=== PATIENT | female | born 1955 | race Caucasian/White ===

== ENCOUNTER → 2017-07-26 | Outpatient (CLI) | payer OTHER | LOC: WCC 09:56 | PROVIDERS: ATTEND Family Medicine | DX: E11.621 Type 2 diabetes mellitus with foot ulcer (principal); L97.524 Non-pressure chronic ulcer of other part of left foot with necrosis of bone; L97.514 Non-pressure chronic ulcer of other part of right foot with necrosis of bone; I70.203 Unspecified atherosclerosis of native arteries of extremities, bilateral legs; I10 Essential (primary) hypertension; I48.2 Chronic atrial fibrillation; D50.8 Other iron deficiency anemias; E78.2 Mixed hyperlipidemia; I25.810 Atherosclerosis of coronary artery bypass graft(s) without angina pectoris; Z01.810 Encounter for preprocedural cardiovascular examination; Z01.811 Encounter for preprocedural respiratory examination ==

== ENCOUNTER → 2017-07-31 | Outpatient (CLI) | payer OTHER | LOC: WCC 11:03 | PROVIDERS: ATTEND Family Medicine | DX: E11.621 Type 2 diabetes mellitus with foot ulcer (principal); L97.514 Non-pressure chronic ulcer of other part of right foot with necrosis of bone; L97.524 Non-pressure chronic ulcer of other part of left foot with necrosis of bone; I70.203 Unspecified atherosclerosis of native arteries of extremities, bilateral legs; I10 Essential (primary) hypertension; D50.8 Other iron deficiency anemias; E78.2 Mixed hyperlipidemia; I48.2 Chronic atrial fibrillation; I25.810 Atherosclerosis of coronary artery bypass graft(s) without angina pectoris; Z01.810 Encounter for preprocedural cardiovascular examination; Z01.811 Encounter for preprocedural respiratory examination ==

== ENCOUNTER → 2017-08-07 | Outpatient (CLI) | payer OTHER ==
--- NOTE | 2017-08-07 11:48 | Diagnostic Imaging Report ---
PROCEDURE: Frontal and lateral views of the chest. COMPARISON: None. INDICATIONS: PULMONARY CLEARANCE FOR HYPERBARIC CHAMBER FINDINGS: Lines/tubes: None. Lungs: The lungs are well inflated and clear. There is no evidence of pneumonia or pulmonary edema. Left mid to lower lung linear atelectasis/scaring. Pleura: There is no pleural effusion or pneumothorax. Heart and mediastinum: The heart and the mediastinum are normal. Median sternotomy wires. Aorta is calcified and tortuous. Bones: No acute bony abnormality. IMPRESSION: 1. No acute cardiopulmonary disease. 2. Left mid to lower lung linear atelectasis/scaring. Dictated by: Jj Mitchell M.D. on 08/07/2017 at 11:57 Electronically approved by: Jj Mitchell M.D. on 08/07/2017 at 11:57
== END ==
LOC: RESP 09:58
PROVIDERS: ATTEND Podiatrist Foot & Ankle Surgery
DX: E11.621 Type 2 diabetes mellitus with foot ulcer (principal); Z01.810 Encounter for preprocedural cardiovascular examination; Z01.811 Encounter for preprocedural respiratory examination
CPT/HCPCS: 71020; 93005; 94010; 94727; 94729

== ENCOUNTER → 2017-08-09 | Outpatient (CLI) | payer OTHER | LOC: WCC 13:42 | PROVIDERS: ATTEND Family Medicine | DX: E11.621 Type 2 diabetes mellitus with foot ulcer (principal); L97.524 Non-pressure chronic ulcer of other part of left foot with necrosis of bone; L97.514 Non-pressure chronic ulcer of other part of right foot with necrosis of bone; I70.203 Unspecified atherosclerosis of native arteries of extremities, bilateral legs; I10 Essential (primary) hypertension; I48.2 Chronic atrial fibrillation; I25.810 Atherosclerosis of coronary artery bypass graft(s) without angina pectoris; D50.8 Other iron deficiency anemias; E78.2 Mixed hyperlipidemia; Z01.810 Encounter for preprocedural cardiovascular examination; Z01.811 Encounter for preprocedural respiratory examination | CPT/HCPCS: 36415; 82948 ==

== ENCOUNTER → 2017-08-15 | Outpatient (CLI) | payer OTHER ==
[2017-08-15 13:14] LABS: ABG HCO3 25 mmol/L (23-28); ABG PCO2 38 mmHg (41-51); ABG PH 7.42 (7.31-7.41); ABG PO2 87 mmHg (80-105)
== END ==
LOC: RESP 11:51
PROVIDERS: ATTEND Internal Medicine Pulmonary Disease
DX: Z01.811 Encounter for preprocedural respiratory examination (principal)
CPT/HCPCS: 36415; 82805

== ENCOUNTER → 2017-08-16 | Outpatient (CLI) | payer OTHER | LOC: WCC 12:42 | PROVIDERS: ATTEND Podiatrist Foot & Ankle Surgery | DX: E11.621 Type 2 diabetes mellitus with foot ulcer (principal); L97.514 Non-pressure chronic ulcer of other part of right foot with necrosis of bone; L97.524 Non-pressure chronic ulcer of other part of left foot with necrosis of bone; I70.203 Unspecified atherosclerosis of native arteries of extremities, bilateral legs; I10 Essential (primary) hypertension; D50.8 Other iron deficiency anemias; E78.2 Mixed hyperlipidemia; I25.810 Atherosclerosis of coronary artery bypass graft(s) without angina pectoris; I48.2 Chronic atrial fibrillation; Z01.810 Encounter for preprocedural cardiovascular examination; Z01.811 Encounter for preprocedural respiratory examination | CPT/HCPCS: 36415; 82948 ==

== ENCOUNTER 2017-09-01 09:51 | Inpatient (IN) | payer OTHER ==
[~2017-09-01] VITALS: Ht 167.6 cm; Wt 93.2 kg
--- OUTSIDE RECORDS SUMMARY | 2017-09-01 09:55 | XMS REPORT | Clinical Summary ---
Author Author CRISSY [facility] Address Unknown Phone Unavailable Care Team Providers Care Cra Officer Name Role Phone PCP Unavailable Allergies Active Allergy Reactions Severity Noted Date Comments Glipizide Other (See Comments) High 06/30/2017 Severe hypoglycemia Hydralazine Analogues 06/12/2017 Current Medications Prescription Sig. Disp. Refills Start End Date Status Date amLODIPine (NORVASC) 10 Take 10 mg by mouth daily Active MG tablet with dinner . atorvastatin (LIPITOR) 80 Take 80 mg by mouth Active MG tablet nightly . amiodarone (PACERONE) 100 Take 1 tablet (100 mg 60 tablet 0 06/24/20 06/24/20 Active MG tablet total) by mouth 2 (two) 17 18 times daily. apixaban (ELIQUIS) 2.5 mg Take 1 tablet (2.5 mg 60 tablet 0 06/24/20 Active Tab tablet total) by mouth 2 (two) 17 times daily. aspirin 81 MG chewable Take 1 tablet (81 mg 30 tablet 0 06/25/2005/05 Active tablet total) by mouth daily. 17 18 losartan (COZAAR) 50 MG Take 1 tablet (50 mg 30 tablet 0 06/24/20 Active tablet total) by mouth daily. 17 metoprolol (TOPROL-XL) 50 Take 1 tablet (50 mg 60 tablet 0 06/24/20 06/24/20 Active MG 24 hr tablet total) by mouth 2 (two) 17 18 times daily. ferrous sulfate 325 (65 Take 1 tablet (325 mg 180 tablet 3 20 06/30/20 Active FE) MG tablet total) by mouth 2 (two) 17 18 times daily. furosemide (LASIX) 40 MG Take 1 tablet (40 mg 180 tablet 3 06/30/20 06/30/20 Active tablet total) by mouth 2 (two) 17 18 times daily. carvedilol (COREG) 25 MG Take 25 mg by mouth 2 06/24/20 Discontin tablet (two) times daily with 17 ued breakfast and dinner. losartan (COZAAR) 50 MG Take 50 mg by mouth 06/24/20 Discontin tablet daily. 17 ued clopidogrel (PLAVIX) 75 Take 75 mg by mouth 06/24/20 Discontin mg tablet daily. 17 ued cloNIDine HCl (CATAPRES) Take 0.1 mg by mouth 2 06/24/20 Discontin 0.1 MG tablet (two) times daily. 17 ued isosorbide mononitrate Take 60 mg by mouth 2 06/24/20 Discontin (IMDUR) 60 MG 24 hr (two) times daily . 17 ued tabletIndications: at 10 am and 10 pm metFORMIN (GLUCOPHAGE) Take 500 mg by mouth 2 06/30/20 Discontin 500 MG tablet (two) times daily with 17 ued breakfast and dinner. aspirin 325 MG tablet Take 325 mg by mouth 06/24/20 Discontin daily. 17 ued LORazepam (ATIVAN) 1 MG Take 1 mg by mouth every 06/24/20 Discontin tablet 12 (twelve) hours as 17 ued needed for Anxiety. acetaminophen-codeine Take 1 tablet by mouth 30 tablet 0 06/24/20 (TYLENOL #3) 300-30 mg every 6 (six) hours as 17 17 per tablet needed for Pain for up to 10 days. Max Daily Amount: 4 tablets amLODIPine (NORVASC) 10 Take 1 tablet (10 mg 30 tablet 0 06/24/20 Discontin MG tablet total) by mouth daily 17 17 ued with dinner. atorvastatin (LIPITOR) 80 Take 1 tablet (80 mg 30 tablet 0 06/24/20 06/30/20 Discontin MG tablet total) by mouth nightly. 17 17 ued docusate sodium (COLACE) Take 1 capsule (100 mg 10 capsule 0 06/24/20 07/04/20 100 MG capsule total) by mouth 2 (two) 17 17 times daily as needed for Constipation for up to 10 days. glipiZIDE (GLUCOTROL) 5 Take 1 tablet (5 mg 60 tablet 0 06/24/20 Discontin MG tablet total) by mouth 2 (two) 17 17 ued times daily before meals. lidocaine (LIDODERM) 5 % Place 2 patches onto the 30 patch 0 06/24/20 07/24/19 patch skin daily for 30 days 17 18 Remove & Discard patch within 12 hours or as directed by MD. lidocaine (XYLOCAINE) 5 % Apply topically as needed 120 g 1 06/24/20 06/30/20 Discontin ointment (on feet). 17 17 ued magnesium oxide (MAG-OX) Take 1 tablet (400 mg 30 tablet 0 06/25/20 06/30/20 Discontin 400 mg tablet total) by mouth daily. 17 17 ued metFORMIN (GLUCOPHAGE) Take 1 tablet (500 mg 60 tablet 0 06/24/20 Discontin 500 MG tablet total) by mouth 2 (two) 17 17 ued times daily with breakfast and dinner. metoprolol (TOPROL-XL) 50 Take 1 tablet (50 mg 60 tablet 0 06/24/20 06/24/20 Discontin MG 24 hr tablet total) by mouth 2 (two) 17 17 ued times daily. QUEtiapine (SEROQUEL) 25 Take 0.5 tablets (12.5 mg 30 tablet 0 06/24/20 Discontin MG tablet total) by mouth nightly 17 17 ued for 30 days. metFORMIN (GLUCOPHAGE) Take 1 tablet (500 mg 60 tablet 0 06/24/20 Discontin 500 MG tablet total) by mouth 2 (two) 17 17 ued times daily with breakfast and dinner. QUEtiapine (SEROQUEL) 25 Take 0.5 tablets (12.5 mg 30 tablet 0 07/24/19 MG tablet total) by mouth nightly 17 18 for 30 days. oseltamivir (TAMIFLU) 75 Take 1 capsule (75 mg 8 capsule 0 06/30/20 07/04/20 MG capsule total) by mouth 2 (two) 17 17 times daily for 4 days. levoFLOXacin (LEVAQUIN) Take 1 tablet (500 mg 2 tablet 0 06/30/20 500 MG tablet total) by mouth daily for 17 17 2 days. Active Problems Problem Noted Date Fever, unspecified fever cause 06/28/2017 SOB (shortness of breath) 06/28/2017 Cough 06/28/2017 Influenza B 06/28/2017 Acute postoperative pain 06/20/2017 Paroxysmal a-fib ([facility]) 06/20/2017 ACB x 3 (Dr. Castillo) - 12.1.17 06/16/2017 MILA (acute kidney injury) ([facility]) 06/16/2017 NSTEMI (non-ST elevated myocardial infarction) ([facility]) 06/16/2017 Acute pulmonary insufficiency following thoracic surgery ([facility]) 06/16/2017 Acute pulmonary edema ([facility]) 06/16/2017 ST elevation myocardial infarction involving left circumflex coronary 2016 artery ([facility]) Chest pain, unspecified type 06/12/2017 Encounters Date Type Specialty Care Team Description 06/28/2017 Emergency Cardiology James Yoon MD Fever, unspecified fever - Philip Quinonez MD cause (Primary Dx);SOB 06/30/2017 Jim Auguste (shortness of breath);S/P MD Shay coronary artery bypass graft x 3;Anemia, unspecified type;Elevated troponin;MILA (acute kidney injury) ([facility]);Cough;Influenza B;Paroxysmal a-fib ([facility]);Type 2 diabetes mellitus with hypoglycemia without coma, without long-term current use of insulin ([facility]) 06/16/2017 Procedure Pass 06/16/2017 Surgery Damien Castillo, BYPASS,AORTO CORONARY ANGELA 06/15/2017 Anesthesia Raj Barrera MD Event 06/15/2017 Procedure Pass 06/15/2017 Surgery Julio C Miller MD L CATH & CORONARY ANGIOS 06/12/2017 Hospital Cardiology James Yoon MD Chest pain, unspecified - Encounter Dimitris Horne MD type (Primary Dx);Acute 06/24/2017 Cleo Nuñez, kidney injury ([facility]);HTN (hypertension)Pippa Yashash-D benign;Mixed hyperlipidemia;Uncontroll ed type 2 diabetes mellitus with complication, with long-term current use of insulin ([facility]);Hypomagnesemia;SOB (shortness of breath);Coronary artery disease of [place] heart with stable angina pectoris, unspecified vessel or lesion type ([facility]);Unstable angina (HCC);MILA (acute kidney injury) (HCC) 06/12/2017 Orders Only General Internal Medicine after 08/31/2016 Social History Tobacco Use Types Packs/Day Years Used Date Never Smoker Smokeless Tobacco: Never Used Sex Assigned at Date Recorded Not on file Last Filed Vital Signs Vital Sign Reading Time Taken Blood Pressure 146/76 06/30/2017 12:00 PM [employer]IC[employer]URAL CHEMICALS INSPECTOR Pulse 65 06/30/2017 12:00 PM [employer]URAL CHEMICALS INSPECTOR Temperature 36.8 C (98.2 F) 06/30/2017 12:00 PM AGRICULTURAL CHEMICALS INSPECTOR Respiratory Rate 20 06/30/2017 12:00 PM AGRICULTURAL CHEMICALS INSPECTOR Oxygen Saturation 94% 06/30/2017 12:00 PM A[employer]IC[employer]URAL CHEMICALS INSPECTOR Inhaled Oxygen - - Concentration Weight 87.6 kg (193 lb 3.2 oz) 06/30/2017 5:42 AM AGRICULTURAL CHEMICALS INSPECTOR Height 168 cm (5' 6.14") 06/27/2017 11:09 PM AGRICULTURAL CHEMICALS INSPECTOR Body Mass Index 31.05 06/30/2017 5:42 AM A[employer]ICULTURAL CHEMICALS INSPECTOR Plan of Treatment Not on file Implants Implanted Type Area Metal Expediter Device Expiration Model / Identifier Date Serial / Lot Sternal Zipfix Ndl Strl Cardiovasc N/A: Chest SYNTHES:SYNTHES 2021 08.501.001 [id number] - [id number] [facility] .20S / Implanted: Qty: 1 on 06/16/2017 by / Damien Castillo MD [id number] Procedures Procedure Name Priority Date/Time Associated Diagnosis Comments ENDOSCOPIC HARVEST,VEIN 06/16/2017 CORONARY ARTERY DISEASE 7:30 AM AGRICULTURAL CHEMICALS INSPECTOR Case Notes [place] CORONARY BYPASS BYPASS,[place]TO CORONARY ANGELA 06/16/2017 CORONARY ARTERY DISEASE 7:30 AM AGRIC[employer]URAL CHEMICALS INSPECTOR Case Notes [place] CORONARY BYPASS L CATH & CORONARY ANGIOS 06/15/2017 cad 6:50 PM AGRICULTURAL CHEMICALS INSPECTOR after 08/31/2016 Results * ECHOCARDIOGRAM REPORT - SCAN (07/03/2017 1:51 PM) Only the most recent of 4 results within the time period is included. * RHYTHM STRIP - SCAN (07/03/2017 11:30 AM) Only the most recent of 3 results within the time period is included. * POC-Glucose meter (06/30/2017 11:48 AM) Only the most recent of 65 results within the time period is included. Component Value Ref Range POC-Glucose Meter 169 (H)Comment: TESTED AT [address] 70 - 110 mg /dL [facility] [id number] Specimen Performing Laboratory Blood [address] [address] * Calcium, Ionized (06/30/2017 5:58 AM) Only the most recent of 19 results within the time period is included. Component Value Ref Range Calcium, Ion 1.05 (L) 1.12 - 1.27 mmol/L pH, Blood 7.39 Specimen Performing Laboratory Blood [address] [address] * CBC with platelet count + automated diff (06/30/2017 5:58 AM) Only the most recent of 16 results within the time period is included. Component Value Ref Range WBC 6.5 3.5 - 10.5 K/ L RBC 2.88 (L) 3.93 - 5.22 M/ L Hemoglobin 8.0 (L) 11.2 - 15.7 GM/DL Hematocrit 26.1 (L) 34.1 - 44.9 % MCV 90.6 79.4 - 94.8 fL MCH 27.8 25.6 - 32.2 pg MCHC 30.7 (L) 32.2 - 35.5 GM/DL RDW 15.4 (H) 11.7 - 14.4 % Platelets 294 150 - 450 K/CU MM MPV 10.2 9.4 - 12.3 fL nRBC 0 0 - 0 /100 WBC % Neutros 71 % % Lymphs 17 % % Monos 9 % % Eos 2 % % Baso 1 % # Neutros 4.63 1.56 - 6.13 K/ L # Lymphs 1.12 (L) 1.18 - 3.74 K/ L # Monos 0.57 (H) 0.24 - 0.36 K/ L # Eos 0.15 0.04 - 0.36 K/ L # Baso 0.04 0.01 - 0.08 K/ L Immature 1 0 - 1 % Granulocytes-Relative Specimen Performing Laboratory Blood [address] [address] * CBC with platelet count + automated diff (06/30/2017 5:58 AM) Only the most recent of 16 results within the time period is included. Specimen Performing Laboratory Blood Narrative The following orders were created for panel order CBC with platelet count + automated diff. Procedure Abnormality Status --------- - ------ CBC with platelet count ...[[id number]]AbnormalFinal result Please view results for these tests on the individual orders. * Phosphorus (06/30/2017 5:58 AM) Only the most recent of 11 results within the time period is included. Component Value Ref Range Phosphorus 3.1 2.3 - 4.7 mg/dL Specimen Performing Laboratory Blood [address] [address] * Magnesium (06/30/2017 5:58 AM) Only the most recent of 23 results within the time period is included. Component Value Ref Range Magnesium 1.7 1.6 - 2.6 mg/dL Specimen Performing Laboratory Blood [address] [address] * Basic metabolic panel (06/30/2017 5:58 AM) Only the most recent of 19 results within the time period is included. Component Value Ref Range Sodium 137 136 - 145 meq/L Potassium 4.1 3.5 - 5.1 meq/L Chloride 100 98 - 107 meq/L CO2 28 22 - 29 meq/L BUN 27 (H) 7 - 21 mg/dL Creatinine 2.27 (H) 0.57 - 1.25 mg/dL Glucose 97 70 - 105 mg/dL Calcium 8.2 (L) 8.4 - 10.2 mg/dL EGFR 22Comment: ESTIMATED GFR IS NOT ACCURATE mL/min/1.73 sq m CREATININE CLEARANCE IN PREDICTING GLOMERULAR FILTRATION RATE. ESTIMATED GFR IS NOT APPLICABLE FOR DIALYSIS PATIENTS. Specimen Performing Laboratory Blood [address] [address] * Iron, TIBC, % sat. (without ferritin) (06/29/2017 1:39 AM) Only the most recent of 2 results within the time period is included. Component Value Ref Range Iron 16 (L) 40 - 160 ug/dL TIBC 248 (L) 250 - 450 ug/dL Iron % Saturation 6 (L) 20 - 55 % Specimen Performing Laboratory Blood [address] [address] * Ferritin (06/29/2017 1:39 AM) Only the most recent of 2 results within the time period is included. Component Value Ref Range Ferritin 540 (H) 5 - 275 ng/mL Specimen Performing Laboratory Blood [address] [address] * Troponin I (06/29/2017 1:33 AM) Only the most recent of 11 results within the time period is included. Component Value Ref Range Troponin I 0.08 (H) 0.00 - 0.03 ng/mL [place]imen [place] [address] Narrative Troponin I (TnI) levels must be interpreted in the context of the presenting symptoms and the clinical findings. Elevated TnI levels indicate myocardial damage, but are not specific for ischemic heart disease. Elevated TnI levels are seen in patients with other cardiac conditions (including myocarditis and congestive heart failure), and slight TnI elevations occur in patients with other conditions, including sepsis, renal failure, acidosis, acute neurological disease, and persistent tachyarrhythmia. * Reticulocyte count (06/29/2017 1:33 AM) Only the most recent of 2 results within the time period is included. Component Value Ref Range % Retic 3.5 (H) 0.5 - 1.7 % Specimen Performing Laboratory [address] [address] * B-type Natriuretic Factor (BNP) (06/29/2017 1:33 AM) Only the most recent of 4 results within the time period is included. Component Value Ref Range BNP 1230 (H) 0 - 100 pg/mL [place]imen [place] [address] * NM lung scan (V/Q) (06/28/2017 4:38 PM) Specimen Performing Laboratory [employer] Narrative FINAL REPORT PROCEDURE: V/Q LUNG SCAN CPT CODE: 66327 INDICATION: Dyspnea PROTOCOL: 10.8 mCi ofXe-133 gas was administered by inhalation. Single breath and rebreathing/washout images were obtained in the anterior and the posterior projections.4.3 mCi of Tc-99m MAA was then injected intravenously, and static perfusion images were obtained in multiple projections. FINDINGS: Ventilation: Initial tracer distribution is irregularly decreased in the left mid lung field anteriorly and the right mid and lower lung chaudhari posteriorly. Washout proceeds normally. Perfusion:Tracer distribution is nonsegmentally decreased in the mid and lower lung chaudhari bilaterally. IMPRESSION: 1. Very low probability of acute pulmonary embolization. 2. Bilateral parenchymal abnormality. Signed: Tiffany Dye MD Report Verified Date/Time:06/28/2017 17:18:07 Reading Location: [address] Reading Room Procedure Note Interface, External Ris In - 06/28/2017 5:20 PM AGRICULTURAL CHEMICALS INSPECTOR FINAL REPORT PROCEDURE: V/Q LUNG SCAN CPT CODE: [id number] INDICATION: Dyspnea PROTOCOL: 10.8 mCi of Xe-133 gas was administered by inhalation. Single breath and rebreathing/washout images were obtained in the anterior and the posterior projections. 4.3 mCi of Tc-99m MAA was then injected intravenously, and static perfusion images were obtained in multiple projections. FINDINGS: Ventilation: Initial tracer distribution is irregularly decreased in the left mid lung field anteriorly and the right mid and lower lung chaudhari posteriorly. Washout proceeds normally. Perfusion: Tracer distribution is nonsegmentally decreased in the mid and lower lung chaudhari bilaterally. IMPRESSION: 1. Very low probability of acute pulmonary embolization. 2. Bilateral parenchymal abnormality. Signed: Tiffany Dye MD Report Verified Date/Time: 06/28/2017 17:18:07 Reading Location: [address] Reading Room * ECG 12 lead (06/28/2017 12:15 PM) Only the most recent of 6 results within the time period is included. Specimen Performing Laboratory [employer] [facility] Narrative Ventricular Rate 69 BPM Atrial Rate 69 BPM P-R Interval 176 ms QRS Duration 100 ms Q-T Interval 452 ms QTC Calculation(Bazett) 484 ms P Raymond 34 degrees R Raymond 5 degrees T Raymond 7 degrees Normal sinus rhythm Nonspecific T wave abnormality Prolonged QT Abnormal ECG When compared with ECG of 28-JUN-2017 12:15, No significant change was found Confirmed by MD ORELLANA JORGE ([id number]) on 06/28/2017 3:14:19 PM Procedure Note Interface, External Ris In - 06/28/2017 3:14 PM A[employer] CHEMICALS INSPECTOR Ventricular Rate 69 BPM Atrial Rate 69 BPM P-R Interval 176 ms QRS Duration 100 ms Q-T Interval 452 ms QTC Calculation(Bazett) 484 ms P Raymond 34 degrees R Raymond 5 degrees T Raymond 7 degrees Normal sinus rhythm Nonspecific T wave abnormality Prolonged QT Abnormal ECG When compared with ECG of 28-JUN-2017 12:15, No significant change was found Confirmed by MD ORELLANA JORGE ([id number]) on 06/28/2017 3:14:19 PM * 2D Echo W/Doppler(CW/PW/Color) (06/28/2017 11:40 AM) Only the most recent of 4 results within the time period is included. Component Value Ref Range Ejection Fraction Specimen Performing Laboratory [facility] CP[facility] Narrative Transthoracic Echocardiography Report (TTE) Demographics Patient NameBRUTMARIE PASTOR Date of Study06/28 ADRIANA Gender Female Visit [id number] Race Unknown Number [id number] Number Date of 1955 Referring Physician Age 62 year(s) Explosive Operator Fuse Donaldo Espino Studio Technician Video Operator Danni ContrerasInterpreting Zayda Contreras MD Physician Procedure Type of Study TTE procedure:2DECHO W DOPPLER(CW/PW/COLOR) ([place]) Indications:Shortness of breath. Clinical History HGB 7.9 HCT 25.3 % CAD DM HLD HTN AR BYPASS AORTO CORONARY Height: 66 inches Weight: 87.09 kg (192 lbs) BSA: 1.97 m^2 BMI: 30.99 kg/m^2 HR: 69 bpm BP: 139/53 mmHg Summary The LV endocardium is well visualized. The left ventricle is chamber size (by vol index) is mildly enlarged (female - LVED 62-70ml/m2). Mild concentric LV hypertrophy. The following segment(s) appear mildly hypokinetic: base mid inferior . Septal motion is abnormal, likely related to prior cardiac surgery . All of the LV segments contract normally . Global LV systolic function normal . LVEF by Miller's method of disk assessment is normal (~60%) . Grade 2 diastolic dysfunction (moderately increased LA pressure). A trivial pericardial effusion is present . A small loculated posterior pericardial effusion is suspected . Compared to prior echo the base-mid inferior segments are better visualized now with contrast Signature Findings Technical Quality: Technically adequate exam. Rhythm/BPAtrial flutter with controlled ventricular response Left Ventricle The LV endocardium is well visualized. The left ventricle is chamber size (by vol index) is mildly enlarged (female - LVED 62-70ml/m2). Mild concentric LV hypertrophy. The following segment(s) appear mildly hypokinetic: base mid inferior . Septal motion is abnormal, likely related to prior cardiac surgery . All of the LV segments contract normally . Global LV systolic function normal . LVEF by Miller's method of disk assessment is normal (~60%) . Grade 2 diastolic dysfunction ( moderately increased LA pressure). Left AtriumLA size is severely enlarged (>48 ml/m2) . Right VentricleThe right ventricular chamber size and systolic function are within normal limits. Right Atrium RA size is normal. Atrial SeptumNormal interatrial septum by available views. Aortic Valve Mild AoV cusp thickening. Mild AoV cusp calcification. Mitral Valve Mild MV leaflet thickening. Mild mitral annular calcification. Mild mitral stenosis. Mild mitral regurgitation. Tricuspid ValveUnable to estimate peak systolic PA pressure; inadequate TR velocity signal. Pulmonic Valve Normal PV structure and function. AortaAortic root size (SInus of Valsalva diameter) is normal . PericardiumA trivial pericardial effusion is present . A small loculated posterior pericardial effusion is suspected . IVC/SVC/PA/PV/PleuralThe estimated RA pressure by IVC dynamics 11-15mmHg . Chambers/Structures Left Atrium LA Volume: 119.61 mlLA Area: 29.43 cm^2 LA Vol. Index: 61 ml/m^2 Left Ventricle LVIDd: 4.64 cm LVIDs: 3.17 cm LV Septum Diastolic: 1.28 cm LV PW Diastolic: 1.29 cm LV FS: 31.7 % LVEDV Miller's:118.16 mlLV IVRT: 87.7 msec LVESV Miller's:42.05 ml LVEDVI: 60 ml/m^2 LVEF Miller's: 64 % LVESVI: 21 ml/ m^2 LVOT Diameter: 2.11 cm Right Atrium RA Vol. (Sngl Plane): 52.26 ml Right Ventricle TAPSE: 1.78 cm Aorta Ao Root S of Iris.: 3.38 cmAscending Aorta: 3.38 cm Doppler/Quantitative Measurements Mitral Valve MV Peak E-Wave: 1.28 m/sMV Peak A-Wave: 0.96 m/s E/ A Ratio: 1.34 Mean Velocity: 1.02 m/s Peak Gradient: 6.55 mmHg Mean Gradient: 4.71 mmHgDeceleration Time: 253.4 msec Area (continuity): 1.65 cm^2 MV VTI: 52.21 cm MV Ho. Peak: 1.54 m/s Tissue Doppler E' Lateral Velocity: 0.07 m/s E/E': 19.52 LVOT Peak Velocity: 1.06 m/s Peak Gradient: 4.49 mmHg Mean Velocity: 0.74 m/s Mean Gradient: 2.53 mmHg LVOT Diameter: 2.11 cmLVOT VTI: 24.6 cm LVOT Area: 3.5 cm^2 LVOT SV:85.97 ml LVOT CO: 5.93 l/min LVOT CI: 3.01 l/min/m^2 Procedure Note Interface, External Ris In - 06/28/2017 3:38 PM AGRICULTURAL CHEMICALS INSPECTOR Transthoracic Echocardiography Report (TTE) Demographics Patient Name MARIE ROGERS Date of Study 06/28/2017 ADRIANA Gender Female Visit Number [id number] Race Unknown Room Number [id number] Number Date of 1955 Referring Physician Age 62 year(s) Explosive Operator Fuse Donaldo Espino Studio Technician Video Operator Danni Gallegos Interpreting Zayda Contreras MD Physician Procedure Type of Study TTE procedure:2DECHO W DOPPLER(CW/PW/COLOR) ([place]) Indications:Shortness of breath. Clinical History HGB 7.9 HCT 25.3 % CAD DM HLD HTN AR BYPASS AORTO CORONARY Height: 66 inches Weight: 87.09 kg (192 lbs) BSA: 1.97 m^2 BMI: 30.99 kg/m^2 HR: 69 bpm BP: 139/53 mmHg Summary The LV endocardium is well visualized. The left ventricle is chamber size (by vol index) is mildly enlarged (female - LVED 62-70ml/m2). Mild concentric LV hypertrophy. The following segment(s) appear mildly hypokinetic: base mid inferior . Septal motion is abnormal, likely related to prior cardiac surgery . All of the LV segments contract normally . Global LV systolic function normal . LVEF by Miller's method of disk assessment is normal (~60%) . Grade 2 diastolic dysfunction (moderately increased LA pressure). A trivial pericardial effusion is present . A small loculated posterior pericardial effusion is suspected . Compared to prior echo the base-mid inferior segments are better visualized now with contrast Signature Findings Technical Quality: Technically adequate exam. Rhythm/BP Atrial flutter with controlled ventricular response Left Ventricle The LV endocardium is well visualized. The left ventricle is chamber size (by vol index) is mildly enlarged (female - LVED 62-70ml/m2). Mild concentric LV hypertrophy. The following segment(s) appear mildly hypokinetic: base mid inferior . Septal motion is abnormal, likely related to prior cardiac surgery . All of the LV segments contract normally . Global LV systolic function normal . LVEF by Miller's method of disk assessment is normal (~60%) . Grade 2 diastolic dysfunction (moderately increased LA pressure). Left Atrium LA size is severely enlarged (>48 ml/m2) . Right Ventricle The right ventricular chamber size and systolic function are within normal limits. Right Atrium RA size is normal. Atrial Septum Normal interatrial septum by available views. Aortic Valve Mild AoV cusp thickening. Mild AoV cusp calcification. Mitral Valve Mild MV leaflet thickening. Mild mitral annular calcification. Mild mitral stenosis. Mild mitral regurgitation. Tricuspid Valve Unable to estimate peak systolic PA pressure; inadequate TR velocity signal. Pulmonic Valve Normal PV structure and function. Aorta Aortic root size (SInus of Valsalva diameter) is normal . Pericardium A trivial pericardial effusion is present . A small loculated posterior pericardial effusion is suspected . IVC/SVC/PA/PV/Pleural The estimated RA pressure by IVC dynamics 11-15mmHg . Chambers/Structures Left Atrium LA Volume: 119.61 ml LA Area: 29.43 cm^2 LA Vol. Index: 61 ml/m^2 Left Ventricle LVIDd: 4.64 cm LVIDs: 3.17 cm LV Septum Diastolic: 1.28 cm LV PW Diastolic: 1.29 cm LV FS: 31.7 % LVEDV Miller's:118.16 ml LV IVRT: 87.7 msec LVESV Miller's:42.05 ml LVEDVI: 60 ml/m^2 LVEF Miller's: 64 % LVESVI: 21 ml/m^2 LVOT Diameter: 2.11 cm Right Atrium RA Vol. (Sngl Plane): 52.26 ml Right Ventricle TAPSE: 1.78 cm Aorta Ao Root S of Iris.: 3.38 cm Ascending Aorta: 3.38 cm Doppler/Quantitative Measurements Mitral Valve MV Peak E-Wave: 1.28 m/s MV Peak A-Wave: 0.96 m/s E/A Ratio: 1.34 Mean Velocity: 1.02 m/s Peak Gradient: 6.55 mmHg Mean Gradient: 4.71 mmHg Deceleration Time: 253.4 msec Area (continuity): 1.65 cm^2 MV VTI: 52.21 cm MV Ho. Peak: 1.54 m/s Tissue Doppler E' Lateral Velocity: 0.07 m/s E/E': 19.52 LVOT Peak Velocity: 1.06 m/s Peak Gradient: 4.49 mmHg Mean Velocity: 0.74 m/s Mean Gradient: 2.53 mmHg LVOT Diameter: 2.11 cm LVOT VTI: 24.6 cm LVOT Area: 3.5 cm^2 LVOT SV:85.97 ml LVOT CO: 5.93 l/min LVOT CI: 3.01 l/min/m^2 * Sputum Culture + Gram Stain (06/28/2017 11:25 AM) Component Value Ref Range Result 1+ Normal respiratory jennifer present Gram Stain Result 3+ WBCs Gram Stain Result 0-5 epithelial cells Gram Stain Result <1+ gram positive rods Gram Stain Result <1+ gram positive cocci in pairs Specimen Performing Laboratory Sputum - Expectorated [facility] [address] [place] [address] * PERIPHERAL VASCULAR REPORT - SCAN (06/28/2017 11:20 AM) Only the most recent of 4 results within the time period is included. * Respiratory Panel [facility] (06/28/2017 11:05 AM) Component Value Ref Range Human Metapneumovirus Not detected Not detected, Inconclusive Rhinovirus Not detected Not detected, Inconclusive Influenza A Not detected Not detected, Inconclusive Influenza A subtype H1 Not detected Not detected, Inconclusive Influenza A Subtype H3 Not detected Not detected, Inconclusive Influenza A Subtype Not detected Not detected, H1-2009 Inconclusive Influenza B Detected (A) Not detected, Inconclusive Respiratory Syncytial Not detected Not detected, Virus Inconclusive Parainfluenza Virus 1 Not detected Not detected, Inconclusive Parainfluenza Virus 2 Not detected Not detected, Inconclusive Parainfluenza virus 3 Not detected Not detected, Inconclusive Parainfluenza Virus 4 Not detected Not detected, Inconclusive Adenovirus Not detected Not detected, Inconclusive Coronavirus 229E Not detected Not detected, Inconclusive Coronavirus HKU1 Not detected Not detected, Inconclusive Coronavirus NL63 Not detected Not detected, Inconclusive Coronavirus OC43 Not detected Not detected, Inconclusive Bordetella Pertussis Not detected Not detected, Inconclusive Chlamydophila Pneumoniae Not detected Not detected, Inconclusive Mycoplasma Pneumoniae Not detected Not detected, Inconclusive Specimen Performing Laboratory Nasopharyngeal - [facility] Nasopharyngeal Swab [address] [place] [address] * Venous doppler legs bilateral (06/28/2017 10:14 AM) Component Value Ref Range Ejection Fraction Specimen Performing Laboratory SLE ECHO HEARTLAB MKCKESSON CPACS Impressions Right Impression 1. There is no deep venous obstruction in the common femoral, profunda femoral, femoral, popliteal, posterior tibial or peroneal veins. 2. There is no superficial venous obstruction in the great saphenous vein. Left Impression 1. There is no deep venous obstruction in the common femoral, profunda femoral, femoral, popliteal, posterior tibial or peroneal veins. 2. There is no superficial venous obstruction in the great saphenous vein. Conclusions Summary Venous duplex imaging and compression of the bilateral lower extremities were performed. The veins were adequately visualized. The bilateral venous systems were patent and compressible with no evidence of thrombus. The venous Doppler waveforms were pulsatile indicating possible elevated right heart filling pressure . Signature Velocities are measured in cm/s ; Diameters are measured in cm Narrative PV LAB - Lower Extremities DVT Study Demographics Patient MARIE Allen Date of Study 06/28/2017 62 Visit [id number] Female of 04/1955 Number Referring PHILIP Oliva Number [id number] Physician Explosive Operator Fuse Clifford Mendoza. InterpretingJ. Barrington Blakely RVT, Asaf PÉREZ, SHERRIE Procedure Type of Study: Veins: Lower Extremities DVT Study, VENOUS DOPPLER LEG, BILATERAL. Indications for Study:Swelling. Patient Status:Routine. Study Location:Vascular Lab. Technical Quality:Adequate visualization. Risk Factors History of Disease + +----+ + !Diagnosis !Date!Comments ! + +----+ + !Other !!left broken 5th digit.! + +----+ + !History/Risk Factors: !!DM, HDL, HT, AR, CAD ! + +----+ + Procedure Note Interface, External Ris In - 06/28/2017 10:55 AM AGRICULTURAL CHEMICALS INSPECTOR PV LAB - Lower Extremities DVT Study Demographics Patient Name MARIE ROGERS Date of Study 06/28/2017 Age 62 Visit Number [id number] Gender Female Date of 1955 [facility] Room Number 1123 Physician Explosive Operator Fuse Clifford Mendoza. Interpreting Lazaro Blakely RVT, ARDMS Physician , RPVI Procedure Type of Study: Veins: Lower Extremities DVT Study, VENOUS DOPPLER LEG, BILATERAL. Indications for Study:Swelling. Patient Status:Routine. Study Location:Vascular Lab. Technical Quality:Adequate visualization. Risk Factors History of Disease + +----+ + !Diagnosis !Date!Comments ! + +----+ + !Other ! !left broken 5th digit. ! + +----+ + !History/Risk Factors: ! !DM, HDL, HT, AR, CAD ! + +----+ + Impressions Right Impression 1. There is no deep venous obstruction in the common femoral, profunda femoral, femoral, popliteal, posterior tibial or peroneal veins. 2. There is no superficial venous obstruction in the great saphenous vein. Left Impression 1. There is no deep venous obstruction in the common femoral, profunda femoral, femoral, popliteal, posterior tibial or peroneal veins. 2. There is no superficial venous obstruction in the great saphenous vein. Conclusions Summary Venous duplex imaging and compression of the bilateral lower extremities were performed. The veins were adequately visualized. The bilateral venous systems were patent and compressible with no evidence of thrombus. The venous Doppler waveforms were pulsatile indicating possible elevated right heart filling pressure . Signature Velocities are measured in cm/s ; Diameters are measured in cm * ED ECG Interpretation (06/28/2017 6:12 AM) Only the most recent of 2 results within the time period is included. Narrative James Yoon MD 06/28/20176:12 AM ECG/EKG Interpretation Date/Time: 06/28/2017 4:43 AM Performed by: JAMES YOON. Authorized by: JAMES YOON The ECG was interpreted by ED physician. The ECG is interpreted as sinus rhythm. Heart rate is 70 BPM. Patient tolerance: Patient tolerated the procedure well with no immediate complications Comments: SINUS RHYTHM ON MONTIOR * Urinalysis w/Microscopic (06/28/2017 4:32 AM) Only the most recent of 2 results within the time period is included. Component Value Ref Range Color, UA Yellow Clarity, UA Clear Specific [place], UA 1.009 1.001 - 1.035 pH, UA 5.5 5.0 - 8.0 Protein, UA 30 mg/dL (A) Negative Glucose, UA Negative Negative Ketones, UA Negative Negative Bilirubin, UA Negative Negative Blood, UA Trace (A) Negative Nitrite, UA Negative Negative Leukocytes, UA Negative Negative Urobilinogen, UA 0.2 0.2 - 1.0 mg/dL RBC, UA <1 /HPF WBC, UA 1 /HPF Bacteria, UA Occasional Squam Epithel, UA 4 /HPF Yeast Occasional Specimen Source Urine, Clean Catch Specimen Performing Laboratory Urine - Urine, [facility] Catch [address] [place] [address] * Urine culture (06/28/2017 4:32 AM) Only the most recent of 2 results within the time period is included. Component Value Ref Range Result Result 10-19,000 col/mL Luz Maria glabrata (A) Specimen Performing Laboratory Urine - Urine, [facility] Catch [address] [place] [address] Narrative 30-39,000 col/mL skin jennifer * Influenza A H1N1 PCR (06/28/2017 3:14 AM) Component Value Ref Range Influenza A RNA Not Detected Not Detected, Inconclusive Novel H1N1 RNA Not Detected Not Detected, Inconclusive Specimen Performing Laboratory Nasopharyngeal - [facility] Nasopharyngeal Swab [address] [place] [address] Narrative These assays were performed by real-time RT-PCR (historical guide-PCR) utilizing fluorogenic hydrolysis probe technology for the detection of human Influenza A viruses and the differential detection of novel H1N1 Influenza virus in respiratory specimens. The test is composed of (1) an RNA extraction from patient specimen, and (2) historical guide-PCR amplification and detection with human Influenza A and novel [id number] primers and probes. A well-conserved region of the Influenza A matrix gene is targeted in one set of reactions to identify both seasonal Influenza A and novel H1N1 Influenza virus in the specimen.In addition, a specific region of the hemagglutinin gene is targeted to differentiate the novel H1N1 virus from the seasonal human influenza. An internal control is used to confirm PCR amplification.Genetic variation and other factors can affect the accuracy of nucleic acid testing; therefore, the results should be interpreted in light of clinical data. This test was developed and its performance characteristics determined by the [facility] Pathology Department, Section of Molecular Pathology.It has not been cleared or approved by the U.S. Food and Drug Administration (FDA).Since FDA approval is not required for clinical use of the test, validation was done as required by The Clinical Laboratory Amendments of 1988. These assays were performed by real-time RT-PCR (historical guide-PCR) utilizing fluorogenic hydrolysis probe technology for the detection of human Influenza A viruses and the differential detection of novel H1N1 Influenza virus in respiratory specimens. The test is composed of (1) an RNA extraction from patient specimen, and (2) historical guide-PCR amplification and detection with human Influenza A and novel [id number] primers and probes. A well-conserved region of the Influenza A matrix gene is targeted in one set of reactions to identify both seasonal Influenza A and novel H1N1 Influenza virus in the specimen.In addition, a specific region of the hemagglutinin gene is targeted to differentiate the novel H1N1 virus from the seasonal human influenza. An internal control is used to confirm PCR amplification.Genetic variation and other factors can affect the accuracy of nucleic acid testing; therefore, the results should be interpreted in light of clinical data. This test was developed and its performance characteristics determined by the [facility] Pathology Department, Section of Molecular Pathology.It has not been cleared or approved by the U.S. Food and Drug Administration (FDA).Since FDA approval is not required for clinical use of the test, validation was done as required by The Clinical Laboratory Amendments of 1988. * Influenza antigen A & B (Rapid) (06/28/2017 3:14 AM) Component Value Ref Range Rapid Influenza A Antigen Negative Negative, Inconclusive Rapid influenza B Antigen Negative Negative, Inconclusive Specimen Performing Laboratory Nasopharyngeal - [facility] Nasopharyngeal Swab [address] [place] [address] * Blood culture (06/28/2017 3:04 AM) Only the most recent of 2 results within the time period is included. Component Value Ref Range Result No growth in 5 days Specimen Performing Laboratory Blood - Arm, [address] [address] * Lactic acid, venous, whole blood (06/28/2017 12:11 AM) Component Value Ref Range Lactate, Venous 1.1 0.5 - 2.2 mmol/L Specimen Performing Laboratory Blood - Arm, [address] [address] Narrative Effective 11/18/2015: Units/Reference Range Change New: 0.5-2.2 mmol/LPrevious: 5-20 mg/dL * Creatine Kinase (CK), Total and MB (06/28/2017 12:11 AM) Only the most recent of 8 results within the time period is included. Component Value Ref Range Total CK 43 29 - 200 U/L CK-MB 0.7 0.0 - 6.6 ng/mL MB Relative Index 1.6 % Specimen Performing Laboratory Blood - Arm, [address] [address] Narrative CK-MB Reference Range: <6.7Normal 6.7-10.0Borderline >10.0 Abnormal * XR chest 1 view portable / bedside (06/27/2017 11:52 PM) Only the most recent of 8 results within the time period is included. Specimen Performing Laboratory GE RIS Narrative FINAL REPORT INDICATION: SHORTNESS OF BREATH FEVER COMPARISON: June 21, 2017 TECHNIQUE: Single frontal view of the chest. IMPRESSION: Lungs and pleura: Clear lungs. No effusion. Heart and mediastinum: Stable enlarged cardiac silhouette. Visible mediastinal surgical changes are stable. Osseous structures: No acute abnormality. Other: None. Signed: JR Bates Robert MD Report Verified Date/Time:06/28/2017 00:07:42 Reading Location: [facility] C013 CT Body Reading Room Procedure Note Interface, External Ris In - 06/28/2017 12:12 AM AGRICULTURAL CHEMICALS INSPECTOR FINAL REPORT INDICATION: SHORTNESS OF BREATH FEVER COMPARISON: June 21, 2017 TECHNIQUE: Single frontal view of the chest. IMPRESSION: Lungs and pleura: Clear lungs. No effusion. Heart and mediastinum: Stable enlarged cardiac silhouette. Visible mediastinal surgical changes are stable. Osseous structures: No acute abnormality. Other: None. Signed: JR Bates Robert MD Report Verified Date/Time: 06/28/2017 00:07:42 Reading Location: [facility] C013Y CT Body Reading Room * PERMANENT LAB REPORT - SCAN (06/27/2017 9:13 AM) * VASCULAR DIAGRAM -SCAN (06/27/2017 9:13 AM) Only the most recent of 3 results within the time period is included. * CBC (Hemogram only) (06/24/2017 6:25 AM) Only the most recent of 2 results within the time period is included. Component Value Ref Range WBC 13.6 (H) 3.5 - 10.5 K/ L RBC 2.89 (L) 3.93 - 5.22 M/ L Hemoglobin 8.3 (L) 11.2 - 15.7 GM/DL Hematocrit 27.0 (L) 34.1 - 44.9 % MCV 93.4 79.4 - 94.8 fL MCH 28.7 25.6 - 32.2 pg MCHC 30.7 (L) 32.2 - 35.5 GM/DL RDW 15.3 (H) 11.7 - 14.4 % Platelets 239 150 - 450 K/CU MM MPV 10.6 9.4 - 12.3 fL nRBC 0 0 - 0 /100 WBC Specimen Performing Laboratory Blood - Arm, Right [address] [address] * TRANSFUSION SERVICE REPORT - SCAN (06/21/2017 6:03 PM) Only the most recent of 3 results within the time period is included. * NM muga study (rest) (06/21/2017 1:29 PM) Only the most recent of 2 results within the time period is included. Specimen Performing Laboratory RIS Narrative FINAL REPORT PROCEDURE:Resting RADIONUCLIDE VENTRICULOGRAM (MUGA scan) CPT CODE:06617 INDICATION: Prior revascularization (either PTCA or CABG) HISTORY:Cardiac risk factors: CAD/AR, ACB 06/16/17, Diabetes, Hypertension, Dyslipidemia. PROTOCOL:Autologous red blood cells were labeled with Tc-99m pertechnetate by the in vitro method. 21.9 mCi of Tc-99m was injected intravenously as labeled red blood cells. Equilibrium gated planar cardiac images were obtained in multiple views at rest. IMAGING FINDINGS:Study quality is good. LV volume appears normal. RV volume appears normal. Gated images obtained at rest show normal LV wall motion and thickening. LVEF is 62%. IMPRESSION: 1. Normal resting radionuclide ventriculogram. Normal LV systolic function.2. Compared to previous [facility] study on 06/13/17 there is no significant change. Signed: Tiffany Dye MD Report Verified Date/Time:06/21/2017 16:08:07 Reading Location: [address] Reading Room Procedure Note Interface, External Ris In - 06/21/2017 4:10 PM AGRICULTURAL CHEMICALS INSPECTOR FINAL REPORT PROCEDURE: Resting RADIONUCLIDE VENTRICULOGRAM (MUGA scan) CPT CODE: 49203 INDICATION: Prior revascularization (either PTCA or CABG) HISTORY: Cardiac risk factors: CAD/AR, ACB 06/16/17, Diabetes, Hypertension, Dyslipidemia. PROTOCOL: Autologous red blood cells were labeled with Tc-99m pertechnetate by the in vitro method. 21.9 mCi of Tc-99m was injected intravenously as labeled red blood cells. Equilibrium gated planar cardiac images were obtained in multiple views at rest. IMAGING FINDINGS: Study quality is good. LV volume appears normal. RV volume appears normal. Gated images obtained at rest show normal LV wall motion and thickening. LVEF is 62%. IMPRESSION: 1. Normal resting radionuclide ventriculogram. Normal LV systolic function. 2. Compared to previous [facility] study on 06/13/17 there is no significant change. Signed: Tiffany Dye MD Report Verified Date/Time: 06/21/2017 16:08:07 Reading Location: [address] Reading Room * Prepare Leuko-Red RBC (06/20/2017 11:54 PM) Component Value Ref Range CROSSMATCH COMPATIBLE Unit ABO O Pos UNIT NUMBER [id number] Status TRANSFUSED Blood Bank Product RED BLOOD CELLS PRODUCT CODE [id number] Specimen Performing Laboratory Other [facility] * PULMONARY FUNCTION - SCAN (06/20/2017 2:40 PM) * Hepatic function panel (06/20/2017 6:13 AM) Only the most recent of 3 results within the time period is included. Component Value Ref Range Protein, Total 5.7 (L) 6.0 - 8.3 gm/dL Albumin 2.6 (L) 3.5 - 5.0 g/dL Total Bilirubin 0.6 0.2 - 1.2 mg/dL Bilirubin, Direct 0.3 0.1 - 0.5 mg/dL Alkaline Phosphatase 56 40 - 150 U/L AST 16 5 - 34 U/L ALT 19 6 - 55 U/L Specimen Performing Laboratory Blood - Arm, Right [address] [address] * CARDIAC CATH REPORT - SCAN (06/19/2017 8:30 PM) * Hemoglobin and hematocrit (06/19/2017 10:13 AM) Only the most recent of 2 results within the time period is included. Component Value Ref Range Hemoglobin 8.6 (L) 11.2 - 15.7 GM/DL Hematocrit 26.3 (L) 34.1 - 44.9 % Specimen Performing Laboratory Blood [address] [address] * Transfuse Leuko-Red RBC (06/19/2017 9:52 AM) Only the most recent of 2 results within the time period is included. * Type and screen, automated (06/19/2017 6:44 AM) Only the most recent of 2 results within the time period is included. Component Value Ref Range ABO/RH AUTOMATED (BEAKER) O POSITIVE Ab Scrn NEGATIVE Specimen Performing Laboratory Blood [address] [address] * Oxygen saturation, measured (06/19/2017 3:38 AM) Only the most recent of 3 results within the time period is included. Component Value Ref Range O2 Saturation (Measured) 57.8 % Specimen Performing Laboratory Blood - Central Venous [facility] Line [address] [place] [address] * Lactate dehydrogenase (LDH) (06/19/2017 3:33 AM) Only the most recent of 2 results within the time period is included. Component Value Ref Range LDH 262 (H) 125 - 220 U/L Specimen Performing Laboratory Blood - Line, Arterial [address] [address] * Glucose (06/18/2017 6:34 PM) Only the most recent of 5 results within the time period is included. Component Value Ref Range Glucose 150 (H) 70 - 105 mg/dL Specimen Performing Laboratory Blood [address] [address] Narrative PRN - repeat glucose levels every 1 hour or as specified by insulin titration orders until glucose level is less than 450 mg/dL Check Serum Magnesium level 2 hours after IV magnesium replacement. * Potassium (06/18/2017 2:03 PM) Only the most recent of 4 results within the time period is included. Component Value Ref Range Potassium 4.2 3.5 - 5.1 meq/L Specimen Performing Laboratory Blood [address] [address] Narrative PRN - repeat glucose levels every 1 hour or as specified by insulin titration orders until glucose level is less than 450 mg/dL Check Serum Magnesium level 2 hours after IV magnesium replacement. Check Serum Potassium level 2 hours after oral potassium replacement completed or 30 min after intravenous potassium replacement. * Blood gas, arterial (06/18/2017 8:09 AM) Only the most recent of 13 results within the time period is included. Component Value Ref Range pH, Arterial 7.44 7.35 - 7.45 pCO2, Arterial 29 (L) 35 - 45 mmHg pO2, Arterial 72 (L) 80 - 90 mmHg O2 Sat, Arterial 95.4 (L) 96.0 - 97.0 % HCO3, Arterial 20 (L) 21 - 29 mmol/L Base Excess, Arterial -4.1 (L) -2.0 - 3.0 mmol/L Patient Temperature 36.7 C FIO2 32.0 % Specimen Performing Laboratory Blood, Arterial [address] [address] * Lactic acid, arterial, whole blood (06/18/2017 3:17 AM) Only the most recent of 4 results within the time period is included. Component Value Ref Range Lactate, Art 1.1 0.5 - 2.2 mmol/L Specimen Performing Laboratory Blood, Arterial [address] [address] Narrative Effective 11/18/2015: Units/Reference Range Change New: 0.5-2.2 mmol/LPrevious: 5-20 mg/dL * [facility] CRITICAL LABS (ABG,NA,K,H&H,GLUCOSE) (06/17/2017 5:10 PM) Only the most recent of 11 results within the time period is included. Specimen Performing Laboratory Blood, Arterial Narrative The following orders were created for panel order [facility] CRITICAL LABS (ABG,NA,K,H& H,GLUCOSE). Procedure Abnormality Status --------- - ------ Blood gas, arterial[[id number]]Abnormal Final result Sodium Na-Stat Lab[[id number]] Normal Final result Potassium-Stat Lab[[id number]] Normal Final result Glucose-Stat Lab[[id number]] Abnormal Final result HGB/HCT (H&H)-Stat Lab[[id number]] Abnormal Final result Please view results for these tests on the individual orders. * Potassium-Stat Lab (06/17/2017 5:10 PM) Only the most recent of 11 results within the time period is included. Component Value Ref Range Potassium 4.2 3.6 - 5.5 meq/L Specimen Performing Laboratory Blood, Arterial [address] [address] * Sodium Na-Stat Lab (06/17/2017 5:10 PM) Only the most recent of 11 results within the time period is included. Component Value Ref Range Sodium 135 135 - 148 meq/L Specimen Performing Laboratory Blood, [address] [address] * Glucose-Stat Lab (06/17/2017 5:10 PM) Only the most recent of 11 results within the time period is included. Component Value Ref Range Glucose 125 (H) 70 - 110 mg/dL Specimen Performing Laboratory Blood, [address] [address] * HGB/HCT (H&H)-Stat Lab (06/17/2017 5:10 PM) Only the most recent of 11 results within the time period is included. Component Value Ref Range Hemoglobin 9.0 (L) 12.0 - 15.0 g/dL Hematocrit 26.0 (L) 36.0 - 45.0 % Specimen Performing Laboratory Blood, [address] [address] * Thromboelastograph (TEG) (06/16/2017 4:02 PM) Component Value Ref Range TEG Activated Clotting 5.8 4.0 - 7.0 minutes Time TEG Fibrinogen Activity 68.7 61.0 - 73.0 degrees TEG Platelet Aggregation 63.8 55.0 - 65.0 MM TEG Fibrinolysis 0.0 0.0 - 5.0 % TEG-H Activated Clotting 5.4 4.0 - 7.0 minutes Time TEG-H Fibrinogen Activity 70.6 61.0 - 73.0 degrees TEG-H Platelet 60.2 55.0 - 65.0 MM Aggregation TEG-H Fibrinolysis 0.0 0.0 - 5.0 % Specimen Performing Laboratory Blood [address] [address] * aPTT (06/16/2017 4:02 PM) Component Value Ref Range PTT 43.4 (H) 22.5 - 36.0 seconds Specimen Performing Laboratory Blood [address] [address] * Prothromin time/INR (06/16/2017 4:02 PM) Only the most recent of 4 results within the time period is included. Component Value Ref Range Protime 17.3 (H) 11.7 - 14.7 seconds INR 1.4 <=5.9 Specimen Performing Laboratory Blood [address] [address] Narrative RECOMMENDED COUMADIN/WARFARIN INR THERAPY RANGES STANDARD DOSE: 2.0 - 3.0 Includes: PROPHYLAXIS for venous thrombosis, systemic embolization; TREATMENT for venous thrombosis and/or pulmonary embolus. HIGH RISK: Target INR is 2.5-3.5 for patients with mechanical heart valves. * Fibrinogen (06/16/2017 4:02 PM) Component Value Ref Range Fibrinogen 208 (L) 225 - 434 mg/dl Specimen Performing Laboratory Blood [address] [address] * ANESTHESIA ANNIE (06/16/2017 1:58 PM) Only the most recent of 2 results within the time period is included. Narrative Robi Cid MD 06/16/20171:58 PM ANNIE Pre Intervention Summary: Post Intervention Summary: Procedure Note Robi Cid MD - 06/16/2017 1:57 PM AGRICULTURAL CHEMICALS INSPECTOR Formatting of this note may be different from the original. ANNIE Pre Intervention Summary: Post Intervention Summary: * POC ACTIVATED CLOTTING TIME (06/16/2017 1:19 PM) Only the most recent of 9 results within the time period is included. Component Value Ref Range Activated Clotting Time 775Comment: TESTED AT [address] [address] Specimen Performing Laboratory Blood [address] [address] * Complement Component C3 (06/16/2017 3:21 AM) Component Value Ref Range C3 Complement 139 82 - 193 mg/dL Specimen Performing Laboratory Blood - Line, [address] [address] * Complement Component C4 (06/16/2017 3:21 AM) Component Value Ref Range C4 Complement 31 15 - 57 mg/dL Specimen Performing Laboratory Blood - Line, [address] [address] * CT brain without IV contrast (06/16/2017 2:54 AM) Specimen Performing Laboratory [facility] Narrative FINAL REPORT CT, BRAIN, WITHOUT CONTRAST INDICATION: Neuro deficit(s), subacute TECHNIQUE: Noncontrast axial imaging was obtained from the vertex to the skull base. Axial images were reconstructed using a bone algorithm. DOSE REDUCTION: Dose modulation, iterative reconstruction, and/or weight-based adjustment of the mA/kV was utilized to reduce the radiation dose to as low as reasonably achievable. COMPARISON: None. FINDINGS: Cerebral parenchyma: Mild/moderate volume loss. Multiple deep white matter changes most compatible with sequela of microvascular disease. 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 Midline structures: Normally positioned. Cerebellum and brainstem: Commensurate volume loss. Ventricles: Normal volume. Extra-axial spaces: Unremarkable. Calvarium and skull base: Intact. Paranasal sinuses and mastoid air cells: Trace left mastoid effusion. Orbital contents: Included portions unremarkable. Additional findings: None. IMPRESSION: No acute intracranial abnormality. Chronic deep white matter changes for which additional characterization with MR may be obtained as clinically warranted. Signed: JR Bates Robert MD Report Verified Date/Time:06/16/2017 03:08:10 Reading Location: [address] Body Reading Room Procedure Note Interface, External Ris In - 06/16/2017 3:12 AM AGRICULTURAL CHEMICALS INSPECTOR FINAL REPORT CT, BRAIN, WITHOUT CONTRAST INDICATION: Neuro deficit(s), subacute TECHNIQUE: Noncontrast axial imaging was obtained from the vertex to the skull base. Axial images were reconstructed using a bone algorithm. DOSE REDUCTION: Dose modulation, iterative reconstruction, and/or weight-based adjustment of the mA/kV was utilized to reduce the radiation dose to as low as reasonably achievable. COMPARISON: None. FINDINGS: Cerebral parenchyma: Mild/moderate volume loss. Multiple deep white matter changes most compatible with sequela of microvascular disease. 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 Midline structures: Normally positioned. Cerebellum and brainstem: Commensurate volume loss. Ventricles: Normal volume. Extra-axial spaces: Unremarkable. Calvarium and skull base: Intact. Paranasal sinuses and mastoid air cells: Trace left mastoid effusion. Orbital contents: Included portions unremarkable. Additional findings: None. IMPRESSION: No acute intracranial abnormality. Chronic deep white matter changes for which additional characterization with MR may be obtained as clinically warranted. Signed: JR Bates Robert MD Report Verified Date/Time: 06/16/2017 03:08:10 Reading Location: [facility] B1 C013Y CT Body Reading Room * Lung volumes (06/15/2017 11:05 AM) Narrative Arjun Hernandez RRT, RCP 06/15/2017 11:05 AM [facility] PFT CHARTING REPORT Infection Control/Hand Hygiene procedures followed throughout the encounter with patient: Yes Patient Identification Method: Patient name verified on armband, and Medical record on armband, Is the order complete?: Yes Account ID#: [id number] Patient Name: Marie Rogers Birthdate: 1955 Age: 62 y.o. Sex: female Admission Date: 06/12/2017Patient Status: Inpatient Reasons/Symptom for having the Test?: a history/complaint of a dyspnea Type of study/treatment ordered by physician: Lung volume and Single Breath DLCO Lab Results Component Value Date HGB 11.0 (L) 06/15/2017 Ranges: Adult Male 13 - 16.8 g/dlAdult Female 12 - 15 g/dl 6 Minute Walk (read only) 06/14/2017 06/15/2017 06/15/2017 Pulse 71 69 65 SpO2 96 96 97 Study Date: 06/15/2017Study Time: 0947 ASSESSMENT History & Physical Mode of Arrival: Wheel chair Pulse: 67Resp: 18 SPO2: 97 % RA Pain Assessment Pain:None TESTING/THERAPEUTICS Medications ordered or required for procedure: N/A PT EDUCATION/INSTRUCTIONS Barriers to learning: No known barriers to learning. Learning need identified: Yes, Patient/Family/Guradian was informed of the ordered study by the physician Barriers to performing study or treatment: Patient has no known disability to perform the study or treatment. DISCHARGE The study was completed in accordance with the physician's order and patient released from the lab without adverse outcome. * Pulmonary Funct Lab Spirometry (06/15/2017 11:05 AM) Narrative Arjun Hernandez RRT, RCP 06/15/2017 11:05 AM [facility] PFT CHARTING REPORT Infection Control/Hand Hygiene procedures followed throughout the encounter with patient: Yes Patient Identification Method: Patient name verified on armband, and Medical record on armband, Is the order complete?: Yes Account ID#: [id number] Patient Name: Marie Rogers Birthdate: 1955 Age: 62 y.o. Sex: female Admission Date: 06/12/2017Patient Status: Inpatient Reasons/Symptom for having the Test?: a history/complaint of a dyspnea Type of study/treatment ordered by physician: Lung volume and Single Breath DLCO Lab Results Component Value Date HGB 11.0 (L) 06/15/2017 Ranges: Adult Male 13 - 16.8 g/dlAdult Female 12 - 15 g/dl 6 Minute Walk (read only) 06/14/2017 06/15/2017 06/15/2017 Pulse 71 69 65 SpO2 96 96 97 Study Date: 06/15/2017Study Time: 09 ASSESSMENT History & Physical Mode of Arrival: Wheel chair Pulse: 67Resp: 18 SPO2: 97 % RA Pain Assessment Pain:None TESTING/THERAPEUTICS Medications ordered or required for procedure: N/A PT EDUCATION/INSTRUCTIONS Barriers to learning: No known barriers to learning. Learning need identified: Yes, Patient/Family/Guradian was informed of the ordered study by the physician Barriers to performing study or treatment: Patient has no known disability to perform the study or treatment. DISCHARGE The study was completed in accordance with the physician's order and patient released from the lab without adverse outcome. * DLCO (single breath diffusion) (06/15/2017 11:05 AM) Arjun Ruiz, BEST WORKER, DISPATCHER SERVICE CHIEF 06/15/2017 11:05 AM [facility] PFT CHARTING REPORT Infection Control/Hand Hygiene procedures followed throughout the encounter with patient: Yes Patient Identification Method: Patient name verified on armband, and Medical record on armband, Is the order complete?: Yes Account ID#: [id number] Patient Name: Marie Rogers Birthdate: 1955 Age: 62 y.o. Sex: female Admission Date: 06/12/2017Patient Status: Inpatient Reasons/Symptom for having the Test?: a history/complaint of a dyspnea Type of study/treatment ordered by physician: Lung volume and Single Breath DLCO Lab Results Component Value Date HGB 11.0 (L) 06/15/2017 Ranges: Adult Male 13 - 16.8 g/dlAdult Female 12 - 15 g/dl 6 Minute Walk (read only) 06/14/2017 06/15/2017 06/15/2017 Pulse 71 69 65 SpO2 96 96 97 Study Date: 06/15/2017Study Time: 0947 ASSESSMENT History & Physical Mode of Arrival: Wheel chair Pulse: 67Resp: 18 SPO2: 97 % RA Pain Assessment Pain:None TESTING/THERAPEUTICS Medications ordered or required for procedure: N/A PT EDUCATION/INSTRUCTIONS Barriers to learning: No known barriers to learning. Learning need identified: Yes, Patient/Family/Guradian was informed of the ordered study by the physician Barriers to performing study or treatment: Patient has no known disability to perform the study or treatment. DISCHARGE The study was completed in accordance with the physician's order and patient released from the lab without adverse outcome. * CT abdomen/pelvis without iv contrast (06/15/2017 12:13 AM) Specimen Performing Laboratory [employer] Narrative FINAL REPORT CT, ABDOMEN \\T\\ PELVIS, WITHOUT IV CONTRAST INDICATION: aortic abnormality; calcium within vessel COMPARISON: None TECHNIQUE: CT of the abdomen and pelvis WITHOUT intravenous contrast. DOSE REDUCTION: Dose modulation, iterative reconstruction, and/or weight-based adjustment of the mA/kV was utilized to reduce the radiation dose to as low as reasonably achievable. FINDINGS: NOTE:Absence of intravenous contrast decreases sensitivity for focal lesions and vascular pathology. Lower thorax: Unremarkable Liver: No parenchymal abnormality. Gallbladder and biliary tree: No ductal dilation following cholecystectomy. Pancreas: No acute findings. Spleen: Prominent splenic size measuring 13 cm increasing in caudal dimension. Adrenal Glands: No acute findings. Kidneys and ureters: No hydronephrosis or nephrolithiasis. Bladder and reproductive organs: Unremarkable. Stomach and Duodenum: Small sliding hiatal hernia. Small and large intestine: Normal calibers. Appendix: Normal. Major vascular structures: Aortic caliber is grossly normal throughout its course with abdominal course. Peripheral calcifications are present with extension into all major arterial branches. Peritoneum and retroperitoneum: No free air, fluid or adenopathy. Skeleton: No acute bony abnormality. Additional findings: None. IMPRESSION: Limited noncontrast evaluation. Tortuous abdominal aorta without aneurysmal dilation calcific atherosclerosis noted throughout the abdominal and visible portions of the pelvic compartments with extension into all major arterial branches. Signed: JR Bates Robert MD Report Verified Date/Time:06/15/2017 00:33:14 Reading Location: [facility] B1 C013Y CT Body Reading Room Procedure Note Interface, External Ris In - 06/15/2017 12:35 AM AGRICULTURAL CHEMICALS INSPECTOR FINAL REPORT CT, ABDOMEN \\T\\ PELVIS, WITHOUT IV CONTRAST INDICATION: aortic abnormality; calcium within vessel COMPARISON: None TECHNIQUE: CT of the abdomen and pelvis WITHOUT intravenous contrast. DOSE REDUCTION: Dose modulation, iterative reconstruction, and/or weight-based adjustment of the mA/kV was utilized to reduce the radiation dose to as low as reasonably achievable. FINDINGS: NOTE: Absence of intravenous contrast decreases sensitivity for focal lesions and vascular pathology. Lower thorax: Unremarkable Liver: No parenchymal abnormality. Gallbladder and biliary tree: No ductal dilation following cholecystectomy. Pancreas: No acute findings. Spleen: Prominent splenic size measuring 13 cm increasing in caudal dimension. Adrenal Glands: No acute findings. Kidneys and ureters: No hydronephrosis or nephrolithiasis. Bladder and reproductive organs: Unremarkable. Stomach and Duodenum: Small sliding hiatal hernia. Small and large intestine: Normal calibers. Appendix: Normal. Major vascular structures: Aortic caliber is grossly normal throughout its course with abdominal course. Peripheral calcifications are present with extension into all major arterial branches. Peritoneum and retroperitoneum: No free air, fluid or adenopathy. Skeleton: No acute bony abnormality. Additional findings: None. IMPRESSION: Limited noncontrast evaluation. Tortuous abdominal aorta without aneurysmal dilation calcific atherosclerosis noted throughout the abdominal and visible portions of the pelvic compartments with extension into all major arterial branches. Signed: JR Jana, Leno PÉREZ Report Verified Date/Time: 06/15/2017 00:33:14 Reading Location: [facility] B1 C013Y CT Body Reading Room * Carotid doppler bilateral (06/14/2017 2:40 PM) Component Value Ref Range Ejection Fraction Specimen Performing Laboratory [facility] ECHO [facility] Impressions Right Impression 1. There is <50% diameter reduction (approximately 40% by 2-D measurement) in the internal carotid artery with a peak velocity of 120/20 cm/sec and heterogeneous plaque. 2. The external carotid artery is within normal limits. 3. The common carotid artery is within normal limits. 4. The vertebral artery flow is antegrade and normal. 5. The subclavian artery is within normal limits where visualized. Left Impression 1. There is <50% diameter reduction (approximately 39% by 2-D measurement) in the internal carotid artery with a peak velocity of 76/19 cm/sec and heterogeneous plaque. 2. There is non-occluding plaque in the external carotid artery. 3. The common carotid artery is within normal limits. 4. The vertebral artery flow is antegrade and normal. 5. The subclavian artery is within normal limits where visualized. Conclusions Summary Carotid duplex scanning and color flow imaging were performed bilaterally. The arteries were adequately visualized. The bilateral internal carotid arteries had <50% hemodynamically insignificant stenosis (approximately 40% by 2-D measurement on the right, approximately 39% by 2-D measurement on the left) with heterogeneous plaque. The vertebral artery flow was antegrade and normal bilaterally. The subclavian arteries were patent with normal flow bilaterally where visualized. Signature Velocities are measured in cm/s ; Diameters are measured in cm Carotid Right Measurements + +----+----+-----+ + + + !Location !PSV !EDV !Angle!%Stenosis 2D!%Stenosis Doppler! Tortuosity ! + +----+----+-----+ + + + !Prox CCA !86.8!19.3!60 !! ! ! + +----+----+-----+ + + + !Dist CCA !71.5!12.3!60 !! ! ! + +----+----+-----+ + + + !Prox ICA !120 !20.4!60 !40% !<50% ! ! + +----+----+-----+ + + + !Dist ICA !88.8!23.6!60 !! ! ! + +----+----+-----+ + + + !Prox ECA !149 !21!60 !! ! ! + +----+----+-----+ + + + !Vertebral!42!6.68!60 !! ! ! + +----+----+-----+ + + + !Prox Subclavian!120 !11!60 !! ! ! + +----+----+-----+ + + + - There is antegrade vertebral flow noted on the right side. - Additional Measurements:ICAPSV/CCAPSV 1.68.ICAEDV/CCAEDV 1.22. Carotid Left Measurements + +----+----+-----+ + + + !Location !PSV !EDV !Angle!%Stenosis 2D!%Stenosis Doppler! Tortuosity ! + +----+----+-----+ + + + !Prox CCA !89.1!14.1!60 !! ! ! + +----+----+-----+ + + + !Dist CCA !97.9!17!60 !! ! ! + +----+----+-----+ + + + !Prox ICA !75.6!18.8!60 !39% !<50% ! ! + +----+----+-----+ + + + !Dist ICA !116 !31.4!60 !! ! ! + +----+----+-----+ + + + !Prox ECA !165 !17.7!60 !! ! ! + +----+----+-----+ + + + !Vertebral!44!12.2!60 !! ! ! + +----+----+-----+ + + + !Prox Subclavian!135 !16.7!60 !! ! ! + +----+----+-----+ + + + - There is antegrade vertebral flow noted on the left side. - Additional Measurements:ICAPSV/CCAPSV 1.18.ICAEDV/CCAEDV 2.23. Narrative [facility] - Carotid Duplex Study Demographics Patient Name MARIE ROGERS Date of Study 06/14/2017 ADRIANA [id number] Age 62 Visit Number [id number] Gender Female Accession Number [id number] Date of 1955 Constantine Miller MD Room Number 8525 Physician SonographHector Moore. Barrington Blakely MD, RVSPhysician RPVI Procedure Type of Study: Cerebral: Carotid, CAROTID DOPPLER, BILATERAL. Indications for Study:PVD. Patient Status:Routine. Study Location:Vascular Lab. Technical Quality:Adequate visualization. Risk Factors History of Disease + +----+ + !Diagnosis !Date!Comments ! + +----+ + !Other !!left broken 5th digit.! + +----+ + !History/Risk Factors: !!DM, HDL, HT, AR, CAD ! + +----+ + Procedure Note Interface, External Ris In - 06/14/2017 3:49 PM AGRICULTURAL CHEMICALS INSPECTOR [facility] - Carotid Duplex Study Demographics Patient Name MARIE ROGERS Date of Study 06/14/2017 ADRIANA Age 62 Visit Number [id number] Gender Female Accession Number [id number] Date of 1955 Referring Julio C Miller MD Room Number 1455 Physician Explosive Operator Fuse Bashir Rashid Interpreting Lazaro Blakely MD, RVS Physician RPVI Procedure Type of Study: Cerebral: Carotid, CAROTID DOPPLER, BILATERAL. Indications for Study:PVD. Patient Status:Routine. Study Location:Vascular Lab. Technical Quality:Adequate visualization. Risk Factors History of Disease + +----+ + !Diagnosis !Date!Comments ! + +----+ + !Other ! !left broken 5th digit. ! + +----+ + !History/Risk Factors: ! !DM, HDL, HT, AR, CAD ! + +----+ + Impressions Right Impression 1. There is <50% diameter reduction (approximately 40% by 2-D measurement) in the internal carotid artery with a peak velocity of 120/20 cm/sec and heterogeneous plaque. 2. The external carotid artery is within normal limits. 3. The common carotid artery is within normal limits. 4. The vertebral artery flow is antegrade and normal. 5. The subclavian artery is within normal limits where visualized. Left Impression 1. There is <50% diameter reduction (approximately 39% by 2-D measurement) in the internal carotid artery with a peak velocity of 76/19 cm/sec and heterogeneous plaque. 2. There is non-occluding plaque in the external carotid artery. 3. The common carotid artery is within normal limits. 4. The vertebral artery flow is antegrade and normal. 5. The subclavian artery is within normal limits where visualized. Conclusions Summary Carotid duplex scanning and color flow imaging were performed bilaterally. The arteries were adequately visualized. The bilateral internal carotid arteries had <50% hemodynamically insignificant stenosis (approximately 40% by 2-D measurement on the right, approximately 39% by 2-D measurement on the left) with heterogeneous plaque. The vertebral artery flow was antegrade and normal bilaterally. The subclavian arteries were patent with normal flow bilaterally where visualized. Signature Velocities are measured in cm/s ; Diameters are measured in cm Carotid Right Measurements + +----+----+-----+ + + + !Location !PSV !EDV !Angle!%Stenosis 2D!%Stenosis Doppler!Tortuosity ! + +----+----+-----+ + + + !Prox CCA !86.8!19.3!60 ! ! ! ! + +----+----+-----+ + + + !Dist CCA !71.5!12.3!60 ! ! ! ! + +----+----+-----+ + + + !Prox ICA !120 !20.4!60 !40% !<50% ! ! + +----+----+-----+ + + + !Dist ICA !88.8!23.6!60 ! ! ! ! + +----+----+-----+ + + + !Prox ECA !149 !21 !60 ! ! ! ! + +----+----+-----+ + + + !Vertebral !42 !6.68!60 ! ! ! ! + +----+----+-----+ + + + !Prox Subclavian!120 !11 !60 ! ! ! ! + +----+----+-----+ + + + - There is antegrade vertebral flow noted on the right side. - Additional Measurements:ICAPSV/CCAPSV 1.68.ICAEDV/CCAEDV 1.22. Carotid Left Measurements + +----+----+-----+ + + + !Location !PSV !EDV !Angle!%Stenosis 2D!%Stenosis Doppler!Tortuosity ! + +----+----+-----+ + + + !Prox CCA !89.1!14.1!60 ! ! ! ! + +----+----+-----+ + + + !Dist CCA !97.9!17 !60 ! ! ! ! + +----+----+-----+ + + + !Prox ICA !75.6!18.8!60 !39% !<50% ! ! + +----+----+-----+ + + + !Dist ICA !116 !31.4!60 ! ! ! ! + +----+----+-----+ + + + !Prox ECA !165 !17.7!60 ! ! ! ! + +----+----+-----+ + + + !Vertebral !44 !12.2!60 ! ! ! ! + +----+----+-----+ + + + !Prox Subclavian!135 !16.7!60 ! ! ! ! + +----+----+-----+ + + + - There is antegrade vertebral flow noted on the left side. - Additional Measurements:ICAPSV/CCAPSV 1.18.ICAEDV/CCAEDV 2.23. * CT chest without IV contrast (06/14/2017 3:27 AM) Specimen Performing Laboratory [facility] FINAL REPORT CLINICAL INDICATION: History of sarcoidosis COMPARISON: None Multiple axial images of the chest were performed without IV contrast utilizing a high resolution protocol, including supine inspiratory and expiratory and prone inspiratory high-resolution images. This exam was performed according to our departmental dose-optimization program, which includes automated exposure control, adjustment of the mA and/or kV according to patient size and/or use of the iterative reconstruction technique. FINDINGS: Lung parenchyma: No significant findings. No pulmonary nodules or masses. No consolidations. No evidence of air-trapping. Normal pulmonary volumes. Normal interstitium without evidence of fibrosis. Pleural effusion: None. Pneumothorax: None. Tracheobronchial tree: No significant findings. No bronchiectasis. Pulmonary vasculature: No significant findings. Cardiac contours and great vessels: Atherosclerotic calcification of the coronary arteries, aorta and great vessels arising from the arch. Aberrant origin of the right subclavian artery. Mediastinum: No significant findings. Lymph Nodes: No adenopathy in the mediastinum or wally. Skeleton: No acute abnormality. Limited images of upper abdomen: Previous cholecystectomy IMPRESSION: No active cardiopulmonary abnormality or CT evidence of sequela from sarcoidosis. 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 Signed: Manny Horvath MD Report Verified Date/Time:06/14/2017 03:45:59 Reading Location: [address] Reading Room Procedure Note Interface, External Ris In - 06/14/2017 3:48 AM AGRICULTURAL CHEMICALS INSPECTOR FINAL REPORT CLINICAL INDICATION: History of sarcoidosis COMPARISON: None Multiple axial images of the chest were performed without IV contrast utilizing a high resolution protocol, including supine inspiratory and expiratory and prone inspiratory high-resolution images. This exam was performed according to our departmental dose-optimization program, which includes automated exposure control, adjustment of the mA and/or kV according to patient size and/or use of the iterative reconstruction technique. FINDINGS: Lung parenchyma: No significant findings. No pulmonary nodules or masses. No consolidations. No evidence of air-trapping. Normal pulmonary volumes. Normal interstitium without evidence of fibrosis. Pleural effusion: None. Pneumothorax: None. Tracheobronchial tree: No significant findings. No bronchiectasis. Pulmonary vasculature: No significant findings. Cardiac contours and great vessels: Atherosclerotic calcification of the coronary arteries, aorta and great vessels arising from the arch. Aberrant origin of the right subclavian artery. Mediastinum: No significant findings. Lymph Nodes: No adenopathy in the mediastinum or wally. Skeleton: No acute abnormality. Limited images of upper abdomen: Previous cholecystectomy IMPRESSION: No active cardiopulmonary abnormality or CT evidence of sequela from sarcoidosis. 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 Signed: Manny Horvath MD Report Verified Date/Time: 06/14/2017 03:45:59 Reading Location: [address] Reading Room * Sodium, random urine (06/13/2017 9:17 PM) Component Value Ref Range Sodium Urine 113 meq/L Specimen Performing Laboratory Urine - Urine, [facility] [address] [place] [id number] Narrative Reference Range: No Normals * Protein, random urine (06/13/2017 9:17 PM) Component Value Ref Range Protein, Urine 22 (H) 0 - 14 mg/dL Specimen Performing Laboratory Urine - Urine, [facility] [address] [place] [address] * Creatinine, random urine (06/13/2017 9:17 PM) Component Value Ref Range Creatinine, Ur 96.6 mg/dL Specimen Performing Laboratory Urine - Urine, [facility] [address] [place] [address] Narrative Reference Range: No Normals * Arterial doppler arms bilateral (06/13/2017 3:55 PM) Component Value Ref Range Ejection Fraction Specimen Performing Laboratory [facility] ECHO HEARTLAB [facility] Impressions Right Impression 1. The subclavian, axillary, brachial, radial and ulnar arteries are patent with normal triphasic Doppler waveforms. 2. The pressures and indices are as follows: ulnar 193 mmHg (0.98) and radial 207 mmHg (1.05). 3. The index finger pressure is 180 mmHg with finger/brachial index of 0.91. There is adequate blood flow in the digits by plethysmography. 4. Palmar arch test is intact. 5. The radial artery measurements are as follows: Proximal - 0.27 cm, Mid - 0.27 cm, Distal - 0.27 cm. 6. The ulnar artery measurements are as follows: Proximal - 0.23 cm, Mid - 0.21 cm, Distal - 0.17 cm. Left Impression 1. There are normal triphasic Doppler waveform signals in the subclavian, axillary, brachial, radial and ulnar arteries. 2. The pressures and indices are as follows: brachial 197 mmHg (1.00), ulnar 189 mmHg (0.96) and radial 177 mmHg (0.90). 3. The index finger pressure is 172 mmHg with finger/brachial index of 0.87. There is adequate blood flow in the digits by plethysmography. 4. Palmar arch test is intact. 5. The radial artery measurements are as follows: Proximal - 0.28 cm, Mid - 0.31 cm, Distal - 0.24 cm. 6. The ulnar artery measurements are as follows: Proximal - 0.26 cm, Mid - 0.22 cm, Distal - 0.20 cm. Conclusions Summary Arterial duplex, segmental pressures, diameter measurement, palmar arch test, index finger digital pressure and digital PPG flow were performed bilaterally. The right and left arterial systems had normal triphasic flow and normal digital flow without obstruction. The Romero's test demonstrated an intact palmar arch bilaterally. Arterial measurements are shown above. Signature Velocities are measured in cm/s ; Diameters are measured in cm Right Upper Extremities Duplex Measurements + +----+-----+----+---------+ !Location !PSV !Ratio!Diam!Waveform ! + +----+-----+----+---------+ !Dist Subclavian !66! !!Triphasic! + +----+-----+----+---------+ !Prox Axillary !76!1.15 !!Triphasic! + +----+-----+----+---------+ !Mid Brachial !116 !1.53 !!Triphasic! + +----+-----+----+---------+ !Prox Radial !74.5!0.64 !!Triphasic! + +----+-----+----+---------+ !Mid Radial !88.5!1.19 !!Triphasic! + +----+-----+----+---------+ !Dist Radial !67.4!0.76 !!Triphasic! + +----+-----+----+---------+ !Prox Ulnar !94.3!0.81 !!Triphasic! + +----+-----+----+---------+ !Mid Ulnar !75.8!0.8!!Triphasic! + +----+-----+----+---------+ !Dist Ulnar !56.6!0.75 !!Triphasic! + +----+-----+----+---------+ Left Upper Extremities Duplex Measurements + +----+-----+----+---------+ !Location !PSV !Ratio!Diam!Waveform ! + +----+-----+----+---------+ !Dist Subclavian !90! !!Triphasic! + +----+-----+----+---------+ !Prox Axillary !80!0.89 !!Triphasic! + +----+-----+----+---------+ !Mid Brachial !96!1.2!!Triphasic! + +----+-----+----+---------+ !Prox Radial !84.4!0.88 !!Triphasic! + +----+-----+----+---------+ !Mid Radial !96.2!1.14 !!Triphasic! + +----+-----+----+---------+ !Dist Radial !66.3!0.69 !!Triphasic! + +----+-----+----+---------+ !Prox Ulnar !95.6!1!!Triphasic! + +----+-----+----+---------+ !Mid Ulnar !96.2!1.01 !!Triphasic! + +----+-----+----+---------+ !Dist Ulnar !80.3!0.83 !!Triphasic! + +----+-----+----+---------+ Narrative [facility] - Upper Extremities Arterial Duplex Demographics Patient Name MARIE ROGRES Date of Study 06/13/2017 ADRIANA [id number] Age 62 Visit Number [id number] Gender Female Accession Number [id number] [facility] 1955 [facility] CarringtonographHector MooreJ. Barrington Blakely MD, RVSPhysician RPVI Procedure Type of Study: Extremities Arteries: Upper Extremities Arterial Duplex, ARTERIAL DOPPLER ARMS, BILATERAL. Indications for Study:Pre-Op Heart Bypass Surgery. Patient Status:Routine. Study Location:Vascular Lab. Technical Quality:Adequate visualization. Risk Factors History of Disease + +----+ + !Diagnosis !Date!Comments ! + +----+ + !Other !!left broken 5th digit.! + +----+ + !History/Risk Factors: !!DM, HDL, HT, AR, CAD ! 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 Indications for Study:Pre-Op Heart Bypass Surgery. Patient Status:Routine. Study Location:Vascular Lab. Technical Quality:Adequate visualization. Risk Factors History of Disease + +----+ + !Diagnosis !Date!Comments ! + +----+ + !Other ! !left broken 5th digit. ! + +----+ + !History/Risk Factors: ! !DM, HDL, HT, AR, CAD ! + +----+ + Impressions Right Impression 1. The subclavian, axillary, brachial, radial and ulnar arteries are patent with normal triphasic Doppler waveforms. 2. The pressures and indices are as follows: ulnar 193 mmHg (0.98) and radial 207 mmHg (1.05). 3. The index finger pressure is 180 mmHg with finger/brachial index of 0.91. There is adequate blood flow in the digits by plethysmography. 4. Palmar arch test is intact. 5. The radial artery measurements are as follows: Proximal - 0.27 cm, Mid - 0.27 cm, Distal - 0.27 cm. 6. The ulnar artery measurements are as follows: Proximal - 0.23 cm, Mid - 0.21 cm, Distal - 0.17 cm. Left Impression 1. There are normal triphasic Doppler waveform signals in the subclavian, axillary, brachial, radial and ulnar arteries. 2. The pressures and indices are as follows: brachial 197 mmHg (1.00), ulnar 189 mmHg (0.96) and radial 177 mmHg (0.90). 3. The index finger pressure is 172 mmHg with finger/brachial index of 0.87. There is adequate blood flow in the digits by plethysmography. 4. Palmar arch test is intact. 5. The radial artery measurements are as follows: Proximal - 0.28 cm, Mid - 0.31 cm, Distal - 0.24 cm. 6. The ulnar artery measurements are as follows: Proximal - 0.26 cm, Mid - 0.22 cm, Distal - 0.20 cm. Conclusions Summary Arterial duplex, segmental pressures, diameter measurement, palmar arch test, index finger digital pressure and digital PPG flow were performed bilaterally. The right and left arterial systems had normal triphasic flow and normal digital flow without obstruction. The Romero's test demonstrated an intact palmar arch bilaterally. Arterial measurements are shown above. Signature Velocities are measured in cm/s ; Diameters are measured in cm Right Upper Extremities Duplex Measurements + +----+-----+----+---------+ !Location !PSV !Ratio!Diam!Waveform ! + +----+-----+----+---------+ !Dist Subclavian !66 ! ! !Triphasic! + +----+-----+----+---------+ !Prox Axillary !76 !1.15 ! !Triphasic! + +----+-----+----+---------+ !Mid Brachial !116 !1.53 ! !Triphasic! + +----+-----+----+---------+ !Prox Radial !74.5!0.64 ! !Triphasic! + +----+-----+----+---------+ !Mid Radial !88.5!1.19 ! !Triphasic! + +----+-----+----+---------+ !Dist Radial !67.4!0.76 ! !Triphasic! + +----+-----+----+---------+ !Prox Ulnar !94.3!0.81 ! !Triphasic! + +----+-----+----+---------+ !Mid Ulnar !75.8!0.8 ! !Triphasic! + +----+-----+----+---------+ !Dist Ulnar !56.6!0.75 ! !Triphasic! + +----+-----+----+---------+ Left Upper Extremities Duplex Measurements + +----+-----+----+---------+ !Location !PSV !Ratio!Diam!Waveform ! + +----+-----+----+---------+ !Dist Subclavian !90 ! ! !Triphasic! + +----+-----+----+---------+ !Prox Axillary !80 !0.89 ! !Triphasic! + +----+-----+----+---------+ !Mid Brachial !96 !1.2 ! !Triphasic! + +----+-----+----+---------+ !Prox Radial !84.4!0.88 ! !Triphasic! + +----+-----+----+---------+ !Mid Radial !96.2!1.14 ! !Triphasic! + +----+-----+----+---------+ !Dist Radial !66.3!0.69 ! !Triphasic! + +----+-----+----+---------+ !Prox Ulnar !95.6!1 ! !Triphasic! + +----+-----+----+---------+ !Mid Ulnar !96.2!1.01 ! !Triphasic! + +----+-----+----+---------+ !Dist Ulnar !80.3!0.83 ! !Triphasic! + +----+-----+----+---------+ * Arterial doppler legs bilateral (06/13/2017 10:12 AM) Component Value Ref Range Ejection Fraction Specimen Performing Laboratory [facility] Impressions Right Impression 1. The posterior tibial and dorsalis pedis arteries are patent with normal triphasic Doppler waveforms. 2. The PT pressure is 181 mmHg with an LELIA of 1.05 and the DP pressure is 184 mmHg with an LELIA of 1.07, within normal range. 3. The great toe pressure is 98 mmHg with an abnormal TBI of 0.57. 4. The digits have adequate flow by PPG waveforms. The Fifth digit has reduced flow compared to the rest. Left Impression 1. The posterior tibial and dorsalis pedis arteries are patent with normal triphasic Doppler waveforms. 2. The PT pressure is 173 mmHg with an LELIA of 1.01 and the DP pressure is 176 mmHg with an LELIA of 1.02, within normal range. 3. The great toe pressure is 113 mmHg with a normal TBI of 0.66. 4. The digits have adequate flow by PPG waveforms. The Fifth digit has reduced flow compared to the rest. Conclusions Summary Arterial pressures and Doppler waveforms were performed bilaterally. Adequate Doppler waveforms were obtained. Doppler waveforms were triphasic with normal flow bilaterally. The right and left LELIA's were within normal range. The TBI on the right was slightly abnormal and on the left was normal. The digits had adequate flow by PPG waveforms bilaterally with the 5th digits being reduced compared to the other digits. Signature Velocities are measured in cm/s ; Diameters are measured in cm Narrative [facility] - Lower Extremity Arterial Procedure Demographics Patient MARIE Allen Date of Study 06/13/2017 62 Visit [id number] Female of 04/1955 Number Referring Damien Castillo, Room Number 1455 Physician Explosive Operator Fuse Clifford Mendoza. InterpretingJ. Barrington Blakely RVT, FRANCHESKADMSPhysiciedward PÉREZ, SHERRIE Procedure Type of Study: Extremities Arteries: Lower Extremity Arterial Procedure, ARTERIAL (LELIA'S W/DOPPLER) ONLY. Indications for Study:PVD. Patient Status:Routine. Study Location:Vascular Lab. Technical Quality:Adequate visualization. Risk Factors History of Disease +---------+----+ + !Diagnosis!Date!Comments ! +---------+----+ + !Other!!left broken 5th digit. ! +---------+----+ + !Other!!DM, HDL, HT, AR, CAD ! +---------+----+ + Procedure Note Interface, External Ris In - 06/13/2017 2:15 PM [employer] CHEMICALS INSPECTOR PV [facility] - Lower Extremity Arterial Procedure Demographics Patient Name MARIE ROGERS Date of Study 06/13/2017 Age 62 Visit Number [id number] Gender Female Date of 1955 Number Referring Damien Castillo, Room Number 1455 Physician Explosive Operator Fuse Clifford Mendoza. Interpreting Lazaro Blakely Isaias, [facility] Physician , [facility] Procedure Type of Study: Extremities Arteries: Lower Extremity Arterial Procedure, ARTERIAL (LELIA'S W/DOPPLER) ONLY. Indications for Study:PVD. Patient Status:Routine. Study Location:Vascular Lab. Technical Quality:Adequate visualization. Risk Factors History of Disease +---------+----+ + !Diagnosis!Date!Comments ! +---------+----+ + !Other ! !left broken 5th digit. ! +---------+----+ + !Other ! !DM, HDL, HT, AR, CAD ! +---------+----+ + Impressions Right Impression 1. The posterior tibial and dorsalis pedis arteries are patent with normal triphasic Doppler waveforms. 2. The PT pressure is 181 mmHg with an LELIA of 1.05 and the DP pressure is 184 mmHg with an LELIA of 1.07, within normal range. 3. The great toe pressure is 98 mmHg with an abnormal TBI of 0.57. 4. The digits have adequate flow by PPG waveforms. The Fifth digit has reduced flow compared to the rest. Left Impression 1. The posterior tibial and dorsalis pedis arteries are patent with normal triphasic Doppler waveforms. 2. The PT pressure is 173 mmHg with an LELIA of 1.01 and the DP pressure is 176 mmHg with an LELIA of 1.02, within normal range. 3. The great toe pressure is 113 mmHg with a normal TBI of 0.66. 4. The digits have adequate flow by PPG waveforms. The Fifth digit has reduced flow compared to the rest. Conclusions Summary Arterial pressures and Doppler waveforms were performed bilaterally. Adequate Doppler waveforms were obtained. Doppler waveforms were triphasic with normal flow bilaterally. The right and left LELIA's were within normal range. The TBI on the right was slightly abnormal and on the left was normal. The digits had adequate flow by PPG waveforms bilaterally with the 5th digits being reduced compared to the other digits. Signature Velocities are measured in cm/s ; Diameters are measured in cm * TSH/Free T4 If Indicated (06/13/2017 5:24 AM) Component Value Ref Range TSH 3.12 0.35 - 4.94 uIU/mL Specimen Performing Laboratory Blood - Line, [place] [address] * Hemoglobin A1c (06/13/2017 5:24 AM) Component Value Ref Range Hemoglobin A1C 6.9 (H) 4.3 - 6.1 % Specimen Performing Laboratory Blood [facility] [place], [place] [address] * Lipid panel (06/13/2017 5:24 AM) Component Value Ref Range Triglycerides 159 mg/dL Cholesterol 94 mg/dL HDL 33 mg/dL LDL Calculated 29 mg/dL Specimen Performing Laboratory Blood - Line, [place] [id number] Narrative Triglyceride Reference Range: Low Risk <150 [id number] High Risk 200-499 Very High Risk>=500 Cholesterol Reference Range: Low Risk <200 [id number] High Risk>240 HDL Cholesterol Reference Range: Low Risk >=60 High Risk <40 LDL Cholesterol Reference Range: Optimal<100 Near [id number] Qfjhgcbjem443-646 Vdre076-480 Very High >=190 * PT/PTT (06/12/2017 2:11 PM) Component Value Ref Range Protime 14.2 11.7 - 14.7 seconds INR 1.1 <=5.9 PTT 32.8 22.5 - 36.0 seconds Specimen Performing Laboratory Blood - Line, [place] [id number] Narrative RECOMMENDED COUMADIN/WARFARIN INR THERAPY RANGES STANDARD DOSE: 2.0 - 3.0 Includes: PROPHYLAXIS for venous thrombosis, systemic embolization; TREATMENT for venous thrombosis and/or pulmonary embolus. HIGH RISK: Target INR is 2.5-3.5 for patients with mechanical heart valves. after 08/31/2016
--- OUTSIDE RECORDS SUMMARY | 2017-09-01 09:56 | XMS REPORT ---
Author Author [facility] Address Unknown Phone Unavailable Care Team Providers Care Senior It Business Analyst Name Role Phone DAFNE AMADOR Unavailable Unavailable KARRIEJAMES Unavailable Unavailable Problems This patient has no known problems. Allergies, Adverse Reactions, Alerts This patient has no known allergies or adverse reactions. Medications This patient has no known medications. Results Test Description Test Time Test Comments Text Results Atomic Results Result Comments BLOOD CULTURE 2017-07-03 10:00:00 CULTURE (BEAKER) (test xmmi=1080) No growth in 5 days BLOOD [id number] 10:00:00* Test Item Value Reference Range Comments CULTURE (BEAKER) (test wyfw=9881) No growth in 5 days URINE [id number] 16:46:00* Test Item Value Reference Range Comments CULTURE (BEAKER) (test afkj=6122) 10-19,000 col/mL Luz Maria glabrata 30-39,000 col/mL skin floraSPUTUM CULTURE + GRAM [id number] 12:10:00* Test Item Value Reference Range Comments CULTURE (BEAKER) (test lodn=5697) 1+ Normal respiratory jennifer present GRAM STAIN RESULT (BEAKER) (test mnrn=3932) 3+ WBCs GRAM STAIN RESULT (BEAKER) (test rbwl=94457) 0-5 epithelial cells GRAM STAIN RESULT (BEAKER) (test eeud=74290) <1+ gram positive rods GRAM STAIN RESULT (BEAKER) (test hujj=666998) <1+ gram positive cocci in pairs POCT-GLUCOSE [id number] 11:52:00* Test Item Value Reference Range Comments POC-GLUCOSE METER (BEAKER) (test rjxc=5482) 169 mg/dL 70-110 TESTED AT [facility] [address] [facility] [address] POCT-GLUCOSE [id number] 11:14:00* Test Item Value Reference Range Comments POC-GLUCOSE METER (BEAKER) (test axxm=0073) 164 mg/dL 70-110 TESTED AT [facility] [address] [facility] [address] POCT-GLUCOSE [id number] 08:07:00* Test Item Value Reference Range Comments POC-GLUCOSE METER (BEAKER) (test ckyd=7680) 148 mg/dL 70-110 TESTED AT [facility] [address] [facility] [address] BASIC METABOLIC [id number] 07:22:00* Test Item Value Reference Range Comments SODIUM (BEAKER) (test hhfe=037) 137 meq/L 136-145 POTASSIUM (BEAKER) (test idrk=070) 4.1 meq/L 3.5-5.1 CHLORIDE (BEAKER) (test ncyi=826) 100 meq/L 98-107 CO2 (BEAKER) (test akzv=053) 28 meq/L 22-29 BLOOD UREA NITROGEN (BEAKER) (test kupe=700) 27 mg/dL 7-21 CREATININE (BEAKER) (test ayix=677) 2.27 mg/dL 0.57-1.25 GLUCOSE RANDOM (BEAKER) (test xxdv=587) 97 mg/dL 70-105 CALCIUM (BEAKER) (test unbz=198) 8.2 mg/dL 8.4-10.2 EGFR (BEAKER) (test hwcr=8192) 22 mL/min/1.73 sq m ESTIMATED GFR IS NOT ACCURATE CREATININE CLEARANCE IN PREDICTING GLOMERULAR FILTRATION RATE. ESTIMATED GFR IS NOT APPLICABLE FOR DIALYSIS PATIENTS. CALCIUM, [id number] 07:18:00* Test Item Value Reference Range Comments CALCIUM IONIZED (BEAKER) (test nlze=381) 1.05 mmol/L 1.12-1.27 PH, BLOOD (BEAKER) (test vmil=5930) 7.39 [id number] 07:17:00* Test Item Value Reference Range Comments PHOSPHORUS (BEAKER) (test gmok=624) 3.1 mg/dL 2.3-4.7 [id number] 07:17:00* Test Item Value Reference Range Comments MAGNESIUM (BEAKER) (test pzwq=299) 1.7 mg/dL 1.6-2.6 CBC W/PLT COUNT & AUTO [id number] 06:49:00* Test Item Value Reference Range Comments WHITE BLOOD CELL COUNT (BEAKER) (test hapu=141) 6.5 K/ L 3.5-10.5 RED BLOOD CELL COUNT (BEAKER) (test iane=247) 2.88 M/ L 3.93-5.22 HEMOGLOBIN (BEAKER) (test ltsp=453) 8.0 GM/DL 11.2-15.7 HEMATOCRIT (BEAKER) (test hlxw=804) 26.1 % 34.1-44.9 MEAN CORPUSCULAR VOLUME (BEAKER) (test rkke=130) 90.6 fL 79.4-94.8 MEAN CORPUSCULAR HEMOGLOBIN (BEAKER) (test hykf=617) 27.8 pg 25.6-32.2 MEAN CORPUSCULAR HEMOGLOBIN CONC (BEAKER) (test amft=207) 30.7 GM/DL 32.2- 35.5 RED CELL DISTRIBUTION WIDTH (BEAKER) (test ddra=821) 15.4 % 11.7-14.4 PLATELET COUNT (BEAKER) (test lxkx=768) 294 K/CU MM 150-450 MEAN PLATELET VOLUME (BEAKER) (test zuti=745) 10.2 fL 9.4-12.3 NUCLEATED RED BLOOD CELLS (BEAKER) (test cfbn=884) 0 /100 WBC 0-0 NEUTROPHILS RELATIVE PERCENT (BEAKER) (test nfbj=448) 71 % LYMPHOCYTES RELATIVE PERCENT (BEAKER) (test twxl=110) 17 % MONOCYTES RELATIVE PERCENT (BEAKER) (test pssw=102) 9 % EOSINOPHILS RELATIVE PERCENT (BEAKER) (test bwco=366) 2 % BASOPHILS RELATIVE PERCENT (BEAKER) (test ixdt=529) 1 % NEUTROPHILS ABSOLUTE COUNT (BEAKER) (test pwhr=243) 4.63 K/ L 1.56-6.13 LYMPHOCYTES ABSOLUTE COUNT (BEAKER) (test moqg=853) 1.12 K/ L 1.18-3.74 MONOCYTES ABSOLUTE COUNT (BEAKER) (test radw=007) 0.57 K/ L 0.24-0.36 EOSINOPHILS ABSOLUTE COUNT (BEAKER) (test rpvp=724) 0.15 K/ L 0.04-0.36 BASOPHILS ABSOLUTE COUNT (BEAKER) (test uzip=207) 0.04 K/ L 0.01-0.08 IMMATURE GRANULOCYTES-RELATIVE PERCENT (BEAKER) (test rnzo=9794) 1 % 0-1 POCT-GLUCOSE [id number] 06:27:00* Test Item Value Reference Range Comments POC-GLUCOSE METER (BEAKER) (test urvq=0454) 120 mg/dL 70-110 TESTED AT [address] [address] POCT-GLUCOSE [id number] 22:26:00* Test Item Value Reference Range Comments POC-GLUCOSE METER (BEAKER) (test jbjy=6274) 92 mg/dL 70-110 TESTED AT [address] [address] POCT-GLUCOSE [id number] 18:13:00* Test Item Value Reference Range Comments POC-GLUCOSE METER (BEAKER) (test yujk=4810) 145 mg/dL 70-110 TESTED AT [address] [address] POCT-GLUCOSE [id number] 18:00:00* Test Item Value Reference Range Comments POC-GLUCOSE METER (BEAKER) (test qvvk=4741) 106 mg/dL 70-110 TESTED AT [address] [address] POCT-GLUCOSE [id number] 13:16:00* Test Item Value Reference Range Comments POC-GLUCOSE METER (BEAKER) (test vduu=1940) 50 mg/dL 70-110 TESTED AT [address] [address] POCT-GLUCOSE [id number] 12:43:00* Test Item Value Reference Range Comments POC-GLUCOSE METER (BEAKER) (test mpvx=6044) 34 mg/dL 70-110 TESTED AT [address] [address] POCT-GLUCOSE [id number] 09:45:00* Test Item Value Reference Range Comments POC-GLUCOSE METER (BEAKER) (test ptxt=3487) 56 mg/dL 70-110 Notified LUIS PÉREZ/ TESTED AT [address] [address] POCT-GLUCOSE [id number] 09:45:00* Test Item Value Reference Range Comments POC-GLUCOSE METER (BEAKER) (test kvja=1963) 49 mg/dL 70-110 Notified LUIS PÉREZ/ TESTED AT [address] [address] POCT-GLUCOSE [id number] 06:06:00* Test Item Value Reference Range Comments POC-GLUCOSE METER (BEAKER) (test oacp=9952) 35 mg/dL 70-110 TESTED AT [facility] [address] [facility] [address] [id number] 03:30:00* Test Item Value Reference Range Comments FERRITIN (BEAKER) (test kueu=127) 540 ng/mL 5-275 IRON, TIBC, % SAT. (WITHOUT FERRITIN)2017-06-29 03:08:00* Test Item Value Reference Range Comments IRON (BEAKER) (test ctof=333) 16 ug/dL 40-160 TOTAL IRON BINDING CAPACITY (BEAKER) (test zmdu=825) 248 ug/dL 250-450 IRON % SATURATION (2) (BEAKER) (test gisy=5986) 6 % 20-55 BASIC METABOLIC [id number] 02:54:00* Test Item Value Reference Range Comments SODIUM (BEAKER) (test tjzg=650) 133 meq/L 136-145 POTASSIUM (BEAKER) (test wbfc=897) 3.4 meq/L 3.5-5.1 CHLORIDE (BEAKER) (test dwsd=833) 98 meq/L 98-107 CO2 (BEAKER) (test noni=577) 24 meq/L 22-29 BLOOD UREA NITROGEN (BEAKER) (test nhwl=256) 32 mg/dL 7-21 CREATININE (BEAKER) (test oloo=689) 2.26 mg/dL 0.57-1.25 GLUCOSE RANDOM (BEAKER) (test ovkh=100) 29 mg/dL 70-105 CALCIUM (BEAKER) (test nvxn=835) 8.4 mg/dL 8.4-10.2 EGFR (BEAKER) (test uhmd=2664) 22 mL/min/1.73 sq m ESTIMATED GFR IS NOT ACCURATE CREATININE CLEARANCE IN PREDICTING GLOMERULAR FILTRATION RATE. ESTIMATED GFR IS NOT APPLICABLE FOR DIALYSIS PATIENTS. TROPONIN [id number] 02:28:00* Test Item Value Reference Range Comments TROPONIN I (BEAKER) (test pvtb=057) 0.08 ng/mL 0.00-0.03 Troponin I (TnI) levels must be interpreted [...] failure, acidosis, acute neurological disease, and persistent tachyarrhythmia.B-TYPE NATRIURETIC FACTOR (BNP) 02:27:00* Test Item Value Reference Range Comments B-TYPE NATRIURETIC PEPTIDE (BEAKER) (test kyli=202) 1230 pg/mL 0-100 [id number] 02:25:00* Test Item Value Reference Range Comments PHOSPHORUS (BEAKER) (test epmf=146) 3.3 mg/dL 2.3-4.7 [id number] 02:25:00* Test Item Value Reference Range Comments MAGNESIUM (BEAKER) (test ailg=545) 1.5 mg/dL 1.6-2.6 POCT-GLUCOSE [id number] 02:02:00* Test Item Value Reference Range Comments POC-GLUCOSE METER (BEAKER) (test osaa=0514) 80 mg/dL 70-110 TESTED AT [address] [address] CALCIUM, [id number] 02:02:00* Test Item Value Reference Range Comments CALCIUM IONIZED (BEAKER) (test vyzi=086) 1.03 mmol/L 1.12-1.27 PH, BLOOD (BEAKER) (test paxp=2764) 7.45 RETICULOCYTE [id number] 01:57:00* Test Item Value Reference Range Comments RETICULOCYTE COUNT PCT (BEAKER) (test fdxs=467) 3.5 % 0.5-1.7 CBC W/PLT COUNT & AUTO [id number] 01:57:00* Test Item Value Reference Range Comments WHITE BLOOD CELL COUNT (BEAKER) (test qfgq=764) 9.3 K/ L 3.5-10.5 RED BLOOD CELL COUNT (BEAKER) (test vwhv=609) 2.85 M/ L 3.93-5.22 HEMOGLOBIN (BEAKER) (test clkz=197) 7.9 GM/DL 11.2-15.7 HEMATOCRIT (BEAKER) (test keaz=704) 25.6 % 34.1-44.9 MEAN CORPUSCULAR VOLUME (BEAKER) (test tzpz=400) 89.8 fL 79.4-94.8 MEAN CORPUSCULAR HEMOGLOBIN (BEAKER) (test thkv=096) 27.7 pg 25.6-32.2 MEAN CORPUSCULAR HEMOGLOBIN CONC (BEAKER) (test bdxy=217) 30.9 GM/DL 32.2- 35.5 RED CELL DISTRIBUTION WIDTH (BEAKER) (test zlcv=146) 15.2 % 11.7-14.4 PLATELET COUNT (BEAKER) (test injf=865) 341 K/CU MM 150-450 MEAN PLATELET VOLUME (BEAKER) (test hyoq=367) 10.0 fL 9.4-12.3 NUCLEATED RED BLOOD CELLS (BEAKER) (test uheh=520) 0 /100 WBC 0-0 NEUTROPHILS RELATIVE PERCENT (BEAKER) (test wkdv=888) 84 % LYMPHOCYTES RELATIVE PERCENT (BEAKER) (test oliw=534) 6 % MONOCYTES RELATIVE PERCENT (BEAKER) (test cpop=362) 8 % EOSINOPHILS RELATIVE PERCENT (BEAKER) (test irrb=569) 0 % BASOPHILS RELATIVE PERCENT (BEAKER) (test bnjx=726) 1 % NEUTROPHILS ABSOLUTE COUNT (BEAKER) (test dzvn=741) 7.83 K/ L 1.56-6.13 LYMPHOCYTES ABSOLUTE COUNT (BEAKER) (test irpd=612) 0.57 K/ L 1.18-3.74 MONOCYTES ABSOLUTE COUNT (BEAKER) (test xwyc=996) 0.76 K/ L 0.24-0.36 EOSINOPHILS ABSOLUTE COUNT (BEAKER) (test kpnn=608) 0.03 K/ L 0.04-0.36 BASOPHILS ABSOLUTE COUNT (BEAKER) (test ucfx=472) 0.06 K/ L 0.01-0.08 IMMATURE GRANULOCYTES-RELATIVE PERCENT (BEAKER) (test spnb=1876) 1 % 0-1 POCT-GLUCOSE [id number] 01:49:00* Test Item Value Reference Range Comments POC-GLUCOSE METER (BEAKER) (test hfmn=6495) 31 mg/dL 70-110 TESTED AT [address] [address] POCT-GLUCOSE [id number] 20:43:00* Test Item Value Reference Range Comments POC-GLUCOSE METER (BEAKER) (test fidw=7809) 109 mg/dL 70-110 TESTED AT [place] [id number] [facility] [address] POCT-GLUCOSE [id number] 19:11:00* Test Item Value Reference Range Comments POC-GLUCOSE METER (BEAKER) (test bekm=2697) 55 mg/dL 70-110 Notified LUIS PÉREZ/ TESTED AT [address] [address] POCT-GLUCOSE [id number] 18:38:00* Test Item Value Reference Range Comments POC-GLUCOSE METER (BEAKER) (test jkoh=9018) 51 mg/dL 70-110 Notified LUIS PÉREZ/ TESTED AT [address] [address] PUL PERF IMAGING, PARTIC, [id number] 17:18:00FINAL REPORT PROCEDURE: V/Q LUNG SCAN CPT CODE: 20149 INDICATION: Dyspnea PROTOCOL: 10.8 mCi of Xe-133 [...] 1. Very low probability of acute pulmonary embolization.2. Bilateral parenchymal abnormality. Signed: Tiffany Dye MDReport Verified Date/Time: 06/28/2017 17:18:07 Reading Location: [address] Reading Room IRATORY PANEL [id number] 15:22:00* Test Item Value Reference Range Comments HUMAN METAPNEUMOVIRUS (BEAKER) (test npec=4261) Not detected Not detected, Inconclusive RHINOVIRUS (BEAKER) (test onme=7601) Not detected Not detected, Inconclusive INFLUENZA A (BEAKER) (test ucdg=2256) Not detected Not detected, Inconclusive INFLUENZA A SUBTYPE H1 (BEAKER) (test plvf=6090) Not detected Not detected, Inconclusive INFLUENZA A SUBTYPE H3 (BEAKER) (test dflg=8985) Not detected Not detected, Inconclusive INFLUENZA A SUBTYPE H1-2009 (BEAKER) (test hjol=0864) Not detected Not detected, Inconclusive INFLUENZA B (BEAKER) (test dutv=4857) Detected Not detected, Inconclusive RESPIRATORY SYNCYTIAL VIRUS (BEAKER) (test jpjc=2398) Not detected Not detected, Inconclusive PARAINFLUENZA VIRUS 1 (BEAKER) (test xqoa=8194) Not detected Not detected, Inconclusive PARAINFLUENZA VIRUS 2 (BEAKER) (test mxbm=8511) Not detected Not detected, Inconclusive PARAINFLUENZA VIRUS 3 (BEAKER) (test ybpm=2443) Not detected Not detected, Inconclusive PARAINFLUENZA VIRUS 4 (BEAKER) (test oygx=4067) Not detected Not detected, Inconclusive ADENOVIRUS (BEAKER) (test edlm=4807) Not detected Not detected, Inconclusive CORONAVIRUS 229E (BEAKER) (test gkmt=8567) Not detected Not detected, Inconclusive CORONAVIRUS HKU1 (BEAKER) (test cqje=6005) Not detected Not detected, Inconclusive CORONAVIRUS NL63 (BEAKER) (test dwoj=6929) Not detected Not detected, Inconclusive CORONAVIRUS OC43 (BEAKER) (test acov=4189) Not detected Not detected, Inconclusive BORDETELLA PERTUSSIS (BEAKER) (test yyjz=5260) Not detected Not detected, Inconclusive CHLAMYDOPHILA PNEUMONIAE (BEAKER) (test bmkq=1957) Not detected Not detected , Inconclusive MYCOPLASMA PNEUMONIAE (BEAKER) (test abck=4956) Not detected Not detected, Inconclusive INFLUENZA A H1N1 [id number] 15:02:00* Test Item Value Reference Range Comments INFLUENZA A RNA (BEAKER) (test gplh=5203) Not Detected Not Detected, Inconclusive NOVEL H1N1 RNA (BEAKER) (test diio=4118) Not Detected Not Detected, Inconclusive These assays were performed by real-time RT-PCR (web applications architect-PCR) utilizing fluorogenic hydrolysis probe technology for the detection of human Influenza A viruses and the differential detection of novel H1N1 Influenza virus in respiratory specimens. The test is composed of (1) an RNA extraction from patient specimen, and (2) web applications architect-PCR amplification and detection with human Influenza A and novel R4H0-tgtstwnn primers and probes. A well-conserved region of the Influenza A matrix gene is targeted in one set of reactions to identify both seasonal Influenza A and novel H1N1 Influenza virus in the specimen. In addition, a specific region of the hemagglutinin gene is targeted to differentiate the novel H1N1 virus from the seasonal human influenza. An internal control is used to confirm PCR amplification. Genetic variation and other factors can affect the accuracy of nucleic acid testing; therefore, the results should be interpreted in light of clinical data. This test was developed and its performance characteristics determined by the [facility] Pathology Department, Section of Molecular Pathology. It has not been cleared or approved by the U.S. Food and Drug Administration (FDA). Since FDA approval is not required for clinical use of the test, validation was done as required by The Clinical Laboratory Amendments of 1988.These assays were performed by real-time RT-PCR (web applications architect-PCR) utilizing fluorogenic hydrolysis probe technology for the detection of human Influenza A viruses and the differential detection of novel H1N1 Influenza virus in respiratory specimens. The test is composed of (1) an RNA extraction from patient specimen, and (2) web applications architect-PCR amplification and detection with human Influenza A and novel M7D9-nsxljjbc primers and probes. A well-conserved region of the Influenza A matrix gene is targeted in one set of reactions to identify both seasonal Influenza A and novel H1N1 Influenza virus in the specimen. In addition, a specific region of the hemagglutinin gene is targeted to differentiate the novel H1N1 virus from the seasonal human influenza. An internal control is used to confirm PCR amplification. Genetic variation and other factors can affect the accuracy of nucleic acid testing; therefore, the results should be interpreted in light of clinical data. This test was developed and its performance characteristics determined by the [facility] Pathology Department, Section of Molecular Pathology. It has not been cleared or approved by the U.S. Food and Drug Administration ( FDA). Since FDA approval is not required for clinical use of the test, validation was done as required by The Clinical Laboratory Amendments of 1987.TROPONIN [id number] 14:23:00* Test Item Value Reference Range Comments TROPONIN I (BEAKER) (test nayw=752) 0.11 ng/mL 0.00-0.03 Troponin I (TnI) levels must be interpreted [...] failure, acidosis, acute neurological disease, and persistent tachyarrhythmia.POCT-GLUCOSE [id number] 12:25:00* Test Item Value Reference Range Comments POC-GLUCOSE METER (BEAKER) (test tlgh=6618) 74 mg/dL 70-110 TESTED AT [facility] [address] [facility] [address] CBC W/PLT COUNT & AUTO [id number] 11:20:00* Test Item Value Reference Range Comments WHITE BLOOD CELL COUNT (BEAKER) (test evcl=746) 8.9 K/ L 3.5-10.5 RED BLOOD CELL COUNT (BEAKER) (test bjiz=247) 2.65 M/ L 3.93-5.22 HEMOGLOBIN (BEAKER) (test hues=469) 7.5 GM/DL 11.2-15.7 HEMATOCRIT (BEAKER) (test wtdj=070) 24.8 % 34.1-44.9 MEAN CORPUSCULAR VOLUME (BEAKER) (test kswc=080) 93.6 fL 79.4-94.8 MEAN CORPUSCULAR HEMOGLOBIN (BEAKER) (test hscy=693) 28.3 pg 25.6-32.2 MEAN CORPUSCULAR HEMOGLOBIN CONC (BEAKER) (test bqfi=086) 30.2 GM/DL 32.2- 35.5 RED CELL DISTRIBUTION WIDTH (BEAKER) (test vtxk=403) 15.5 % 11.7-14.4 PLATELET COUNT (BEAKER) (test ajnj=907) 310 K/CU MM 150-450 MEAN PLATELET VOLUME (BEAKER) (test hzkj=680) 10.3 fL 9.4-12.3 NUCLEATED RED BLOOD CELLS (BEAKER) (test vwux=199) 0 /100 WBC 0-0 NEUTROPHILS RELATIVE PERCENT (BEAKER) (test hpff=227) 84 % LYMPHOCYTES RELATIVE PERCENT (BEAKER) (test amml=023) 6 % MONOCYTES RELATIVE PERCENT (BEAKER) (test munp=085) 8 % EOSINOPHILS RELATIVE PERCENT (BEAKER) (test nvfe=863) 1 % BASOPHILS RELATIVE PERCENT (BEAKER) (test wpnx=309) 1 % NEUTROPHILS ABSOLUTE COUNT (BEAKER) (test aqkv=024) 7.45 K/ L 1.56-6.13 LYMPHOCYTES ABSOLUTE COUNT (BEAKER) (test mxen=382) 0.51 K/ L 1.18-3.74 MONOCYTES ABSOLUTE COUNT (BEAKER) (test gdgq=796) 0.74 K/ L 0.24-0.36 EOSINOPHILS ABSOLUTE COUNT (BEAKER) (test zxxp=201) 0.11 K/ L 0.04-0.36 BASOPHILS ABSOLUTE COUNT (BEAKER) (test coem=488) 0.08 K/ L 0.01-0.08 IMMATURE GRANULOCYTES-RELATIVE PERCENT (BEAKER) (test lngs=5484) 0 % 0-1 URINALYSIS W/ [id number] 05:48:00* Test Item Value Reference Range Comments COLOR (BEAKER) (test gptr=398) Yellow CLARITY (BEAKER) (test ldap=011) Clear SPECIFIC GRAVITY UA (BEAKER) (test vdok=602) 1.009 1.001-1.035 PH UA (BEAKER) (test yehf=041) 5.5 5.0-8.0 PROTEIN UA (BEAKER) (test kbwi=396) 30 mg/dL Negative GLUCOSE UA (BEAKER) (test srsa=674) Negative Negative KETONES UA (BEAKER) (test lmbf=424) Negative Negative BILIRUBIN UA (BEAKER) (test iqmd=693) Negative Negative BLOOD UA (BEAKER) (test pxib=588) Trace Negative NITRITE UA (BEAKER) (test yqhg=080) Negative Negative LEUKOCYTE ESTERASE UA (BEAKER) (test ducy=274) Negative Negative UROBILINOGEN UA (BEAKER) (test cndk=580) 0.2 mg/dL 0.2-1.0 RBC UA (BEAKER) (test uqtq=633) < /HPF WBC UA (BEAKER) (test dccm=535) 1 /HPF BACTERIA (BEAKER) (test nnxu=726) Occasional SQUAMOUS EPITHELIAL (BEAKER) (test acik=983) 4 /HPF YEAST (BEAKER) (test ynyf=4412) Occasional SOURCE(BEAKER) (test jawm=1744) Urine, Clean Catch RAPID INFLUENZA A&B [id number] 04:26:00* Test Item Value Reference Range Comments RAPID INFLUENZA A AG (BEAKER) (test ylap=1674) Negative Negative, Inconclusive RAPID INFLUENZA B AG (BEAKER) (test kfnb=4115) Negative Negative, Inconclusive CBC W/PLT COUNT & AUTO [id number] 01:08:00* Test Item Value Reference Range Comments WHITE BLOOD CELL COUNT (BEAKER) (test pcfd=281) 10.9 K/ L 3.5-10.5 RED BLOOD CELL COUNT (BEAKER) (test gnuf=241) 2.76 M/ L 3.93-5.22 HEMOGLOBIN (BEAKER) (test yjiu=278) 7.9 GM/DL 11.2-15.7 HEMATOCRIT (BEAKER) (test xpea=831) 25.3 % 34.1-44.9 MEAN CORPUSCULAR VOLUME (BEAKER) (test pbfe=619) 91.7 fL 79.4-94.8 MEAN CORPUSCULAR HEMOGLOBIN (BEAKER) (test fgnr=672) 28.6 pg 25.6-32.2 MEAN CORPUSCULAR HEMOGLOBIN CONC (BEAKER) (test newr=480) 31.2 GM/DL 32.2- 35.5 RED CELL DISTRIBUTION WIDTH (BEAKER) (test lzyv=267) 15.2 % 11.7-14.4 PLATELET COUNT (BEAKER) (test ovep=873) 323 K/CU MM 150-450 MEAN PLATELET VOLUME (BEAKER) (test nwsr=478) 10.2 fL 9.4-12.3 NUCLEATED RED BLOOD CELLS (BEAKER) (test xcrr=155) 0 /100 WBC 0-0 NEUTROPHILS RELATIVE PERCENT (BEAKER) (test hged=757) 81 % LYMPHOCYTES RELATIVE PERCENT (BEAKER) (test dfzn=935) 8 % MONOCYTES RELATIVE PERCENT (BEAKER) (test vcqu=677) 7 % EOSINOPHILS RELATIVE PERCENT (BEAKER) (test kfho=355) 3 % BASOPHILS RELATIVE PERCENT (BEAKER) (test cwga=800) 1 % NEUTROPHILS ABSOLUTE COUNT (BEAKER) (test iqey=374) 8.87 K/ L 1.56-6.13 LYMPHOCYTES ABSOLUTE COUNT (BEAKER) (test ifgx=191) 0.82 K/ L 1.18-3.74 MONOCYTES ABSOLUTE COUNT (BEAKER) (test dyee=557) 0.73 K/ L 0.24-0.36 EOSINOPHILS ABSOLUTE COUNT (BEAKER) (test jcdt=272) 0.37 K/ L 0.04-0.36 BASOPHILS ABSOLUTE COUNT (BEAKER) (test odxm=466) 0.07 K/ L 0.01-0.08 IMMATURE GRANULOCYTES-RELATIVE PERCENT (BEAKER) (test phtm=8245) 1 % 0-1 CREATINE KINASE (CK), TOTAL AND [id number] 00:51:00* Test Item Value Reference Range Comments CREATINE KINASE TOTAL (BEAKER) (test ggke=062) 43 U/L 29-200 CREATINE KINASE-MB (BEAKER) (test hvob=264) 0.7 ng/mL 0.0-6.6 CREATINE KINASE-MB INDEX (BEAKER) (test qedb=360) 1.6 % CK-MB Reference Range:<6.7 Normal6.7-10.0 Borderline>10.0 AbnormalTROPONIN [id number] 00:51:00* Test Item Value Reference Range Comments TROPONIN I (BEAKER) (test eych=095) 0.07 ng/mL 0.00-0.03 Troponin I (TnI) levels must be interpreted [...] failure, acidosis, acute neurological disease, and persistent tachyarrhythmia.B-TYPE NATRIURETIC FACTOR (BNP) 00:51:00* Test Item Value Reference Range Comments B-TYPE NATRIURETIC PEPTIDE (BEAKER) (test biyz=421) 1151 pg/mL 0-100 BASIC METABOLIC [id number] 00:48:00* Test Item Value Reference Range Comments SODIUM (BEAKER) (test ywob=706) 136 meq/L 136-145 POTASSIUM (BEAKER) (test hewe=353) 4.2 meq/L 3.5-5.1 CHLORIDE (BEAKER) (test lyky=817) 101 meq/L 98-107 CO2 (BEAKER) (test uire=319) 25 meq/L 22-29 BLOOD UREA NITROGEN (BEAKER) (test otzc=181) 35 mg/dL 7-21 CREATININE (BEAKER) (test shnw=067) 2.57 mg/dL 0.57-1.25 GLUCOSE RANDOM (BEAKER) (test rcor=477) 66 mg/dL 70-105 CALCIUM (BEAKER) (test uprv=710) 8.3 mg/dL 8.4-10.2 EGFR (BEAKER) (test cifo=7699) 19 mL/min/1.73 sq m ESTIMATED GFR IS NOT ACCURATE CREATININE CLEARANCE IN PREDICTING GLOMERULAR FILTRATION RATE. ESTIMATED GFR IS NOT APPLICABLE FOR DIALYSIS PATIENTS. [id number] 00:44:00* Test Item Value Reference Range Comments MAGNESIUM (BEAKER) (test gpbt=177) 1.8 mg/dL 1.6-2.6 LACTIC ACID, VENOUS, WHOLE [id number] 00:40:00* Test Item Value Reference Range Comments LACTATE BLOOD VENOUS (2) (BEAKER) (test iwvs=3626) 1.1 mmol/L 0.5-2.2 Effective 11/18/2015: Units/Reference Range ChangeNew: 0.5-2.2 mmol/L Previous: 5 -20 mg/dLRAD, CHEST, 1 VIEW, NON [id number] 00:07:00Reason for exam:-> SHORTNESS OF BREATHReason for exam:->FEVERFINAL REPORT INDICATION: SHORTNESS OF BREATHFEVER COMPARISON: June 21, 2017 TECHNIQUE: Single frontal view of the chest. IMPRESSION:Lungs and pleura: Clear lungs. No effusion.Heart and mediastinum: Stable enlarged cardiac silhouette. Visible mediastinal surgical changes are stable.Osseous structures: No acute abnormality.Other: None. Signed: JR Bates Robert MDReport Verified Date /Time: 06/28/2017 00:07:42 Reading Location: [address] Body Reading Room -GLUCOSE [id number] 12:36:00* Test Item Value Reference Range Comments POC-GLUCOSE METER (BEAKER) (test eiqb=4244) 212 mg/dL 70-110 TESTED AT [facility] [address] [facility] [address] POCT-GLUCOSE [id number] 08:02:00* Test Item Value Reference Range Comments POC-GLUCOSE METER (BEAKER) (test elpo=1677) 195 mg/dL 70-110 TESTED AT [facility] [address] [facility] [address] BASIC METABOLIC [id number] 07:36:00* Test Item Value Reference Range Comments SODIUM (BEAKER) (test yhda=970) 137 meq/L 136-145 POTASSIUM (BEAKER) (test yhkq=209) 3.9 meq/L 3.5-5.1 CHLORIDE (BEAKER) (test aaix=274) 102 meq/L 98-107 CO2 (BEAKER) (test weqz=344) 26 meq/L 22-29 BLOOD UREA NITROGEN (BEAKER) (test wyzr=372) 38 mg/dL 7-21 CREATININE (BEAKER) (test uasg=268) 2.57 mg/dL 0.57-1.25 GLUCOSE RANDOM (BEAKER) (test saib=270) 152 mg/dL 70-105 CALCIUM (BEAKER) (test hzru=874) 8.3 mg/dL 8.4-10.2 EGFR (BEAKER) (test nkhq=2713) 19 mL/min/1.73 sq m ESTIMATED GFR IS NOT ACCURATE CREATININE CLEARANCE IN PREDICTING GLOMERULAR FILTRATION RATE. ESTIMATED GFR IS NOT APPLICABLE FOR DIALYSIS PATIENTS. CBC (HEMOGRAM ONLY)2017-06-24 07:09:00* Test Item Value Reference Range Comments WHITE BLOOD CELL COUNT (BEAKER) (test rkdz=621) 13.6 K/ L 3.5-10.5 RED BLOOD CELL COUNT (BEAKER) (test zpxb=477) 2.89 M/ L 3.93-5.22 HEMOGLOBIN (BEAKER) (test whbh=593) 8.3 GM/DL 11.2-15.7 HEMATOCRIT (BEAKER) (test sfsp=149) 27.0 % 34.1-44.9 MEAN CORPUSCULAR VOLUME (BEAKER) (test cpgj=401) 93.4 fL 79.4-94.8 MEAN CORPUSCULAR HEMOGLOBIN (BEAKER) (test khpt=345) 28.7 pg 25.6-32.2 MEAN CORPUSCULAR HEMOGLOBIN CONC (BEAKER) (test ruhb=151) 30.7 GM/DL 32.2- 35.5 RED CELL DISTRIBUTION WIDTH (BEAKER) (test lkce=420) 15.3 % 11.7-14.4 PLATELET COUNT (BEAKER) (test gtcl=617) 239 K/CU MM 150-450 MEAN PLATELET VOLUME (BEAKER) (test fyqx=742) 10.6 fL 9.4-12.3 NUCLEATED RED BLOOD CELLS (BEAKER) (test cjwy=210) 0 /100 WBC 0-0 POCT-GLUCOSE [id number] 20:54:00* Test Item Value Reference Range Comments POC-GLUCOSE METER (BEAKER) (test spwp=0951) 179 mg/dL 70-110 TESTED AT [address] [address] POCT-GLUCOSE [id number] 17:25:00* Test Item Value Reference Range Comments POC-GLUCOSE METER (BEAKER) (test cfsg=7953) 171 mg/dL 70-110 TESTED AT [address] [address] POCT-GLUCOSE [id number] 13:11:00* Test Item Value Reference Range Comments POC-GLUCOSE METER (BEAKER) (test ehok=8628) 249 mg/dL 70-110 TESTED AT [address] [address] POCT-GLUCOSE [id number] 08:29:00* Test Item Value Reference Range Comments POC-GLUCOSE METER (BEAKER) (test klpy=3851) 133 mg/dL 70-110 TESTED AT [address] [address] CALCIUM, [id number] 06:44:00* Test Item Value Reference Range Comments CALCIUM IONIZED (BEAKER) (test damf=248) 0.90 mmol/L 1.12-1.27 PH, BLOOD (BEAKER) (test peno=8693) 7.48 BASIC METABOLIC [id number] 05:35:00* Test Item Value Reference Range Comments SODIUM (BEAKER) (test jquu=216) 135 meq/L 136-145 POTASSIUM (BEAKER) (test zlng=078) 3.8 meq/L 3.5-5.1 CHLORIDE (BEAKER) (test avec=750) 103 meq/L 98-107 CO2 (BEAKER) (test bnsz=864) 23 meq/L 22-29 BLOOD UREA NITROGEN (BEAKER) (test zrko=175) 38 mg/dL 7-21 CREATININE (BEAKER) (test uide=573) 2.43 mg/dL 0.57-1.25 GLUCOSE RANDOM (BEAKER) (test qtps=844) 129 mg/dL 70-105 CALCIUM (BEAKER) (test hesr=323) 8.1 mg/dL 8.4-10.2 EGFR (BEAKER) (test hhqp=3562) 20 mL/min/1.73 sq m ESTIMATED GFR IS NOT ACCURATE CREATININE CLEARANCE IN PREDICTING GLOMERULAR FILTRATION RATE. ESTIMATED GFR IS NOT APPLICABLE FOR DIALYSIS PATIENTS. [id number] 05:30:00* Test Item Value Reference Range Comments PHOSPHORUS (BEAKER) (test aziq=751) 3.8 mg/dL 2.3-4.7 [id number] 05:30:00* Test Item Value Reference Range Comments MAGNESIUM (BEAKER) (test bqoa=411) 1.8 mg/dL 1.6-2.6 CBC W/PLT COUNT & AUTO [id number] 05:23:00* Test Item Value Reference Range Comments WHITE BLOOD CELL COUNT (BEAKER) (test alus=005) 13.2 K/ L 3.5-10.5 RED BLOOD CELL COUNT (BEAKER) (test yhac=840) 2.82 M/ L 3.93-5.22 HEMOGLOBIN (BEAKER) (test siwj=665) 8.2 GM/DL 11.2-15.7 HEMATOCRIT (BEAKER) (test anhh=951) 26.4 % 34.1-44.9 MEAN CORPUSCULAR VOLUME (BEAKER) (test uywd=086) 93.6 fL 79.4-94.8 MEAN CORPUSCULAR HEMOGLOBIN (BEAKER) (test rknr=796) 29.1 pg 25.6-32.2 MEAN CORPUSCULAR HEMOGLOBIN CONC (BEAKER) (test bnxc=753) 31.1 GM/DL 32.2- 35.5 RED CELL DISTRIBUTION WIDTH (BEAKER) (test mvez=843) 15.0 % 11.7-14.4 PLATELET COUNT (BEAKER) (test sjqs=940) 188 K/CU MM 150-450 MEAN PLATELET VOLUME (BEAKER) (test eslx=573) 10.4 fL 9.4-12.3 NUCLEATED RED BLOOD CELLS (BEAKER) (test ayeh=584) 0 /100 WBC 0-0 NEUTROPHILS RELATIVE PERCENT (BEAKER) (test vbms=282) 59 % LYMPHOCYTES RELATIVE PERCENT (BEAKER) (test nzsf=706) 23 % MONOCYTES RELATIVE PERCENT (BEAKER) (test lzzv=380) 8 % EOSINOPHILS RELATIVE PERCENT (BEAKER) (test nhux=603) 9 % BASOPHILS RELATIVE PERCENT (BEAKER) (test hvic=844) 1 % NEUTROPHILS ABSOLUTE COUNT (BEAKER) (test sine=768) 7.80 K/ L 1.56-6.13 LYMPHOCYTES ABSOLUTE COUNT (BEAKER) (test bsqk=650) 2.98 K/ L 1.18-3.74 MONOCYTES ABSOLUTE COUNT (BEAKER) (test ufen=448) 1.02 K/ L 0.24-0.36 EOSINOPHILS ABSOLUTE COUNT (BEAKER) (test dnys=984) 1.24 K/ L 0.04-0.36 BASOPHILS ABSOLUTE COUNT (BEAKER) (test wamr=950) 0.12 K/ L 0.01-0.08 IMMATURE GRANULOCYTES-RELATIVE PERCENT (BEAKER) (test mtvp=1100) 1 % 0-1 POCT-GLUCOSE [id number] 22:33:00* Test Item Value Reference Range Comments POC-GLUCOSE METER (BEAKER) (test wfuy=5622) 256 mg/dL 70-110 TESTED AT [address] [address] POCT-GLUCOSE [id number] 18:29:00* Test Item Value Reference Range Comments POC-GLUCOSE METER (BEAKER) (test ycgf=7149) 132 mg/dL 70-110 TESTED AT [address] [address] POCT-GLUCOSE [id number] 13:02:00* Test Item Value Reference Range Comments POC-GLUCOSE METER (BEAKER) (test zrmq=1436) 242 mg/dL 70-110 TESTED AT [address] [address] POCT-GLUCOSE [id number] 08:30:00* Test Item Value Reference Range Comments POC-GLUCOSE METER (BEAKER) (test abtk=8074) 159 mg/dL 70-110 TESTED AT [address] [address] CALCIUM, [id number] 05:11:00* Test Item Value Reference Range Comments CALCIUM IONIZED (BEAKER) (test yvup=548) 1.03 mmol/L 1.12-1.27 PH, BLOOD (BEAKER) (test wzqf=9099) 7.41 BASIC METABOLIC [id number] 04:33:00* Test Item Value Reference Range Comments SODIUM (BEAKER) (test oegq=949) 136 meq/L 136-145 POTASSIUM (BEAKER) (test bcie=942) 3.7 meq/L 3.5-5.1 CHLORIDE (BEAKER) (test bhzl=670) 102 meq/L 98-107 CO2 (BEAKER) (test zqmp=855) 26 meq/L 22-29 BLOOD UREA NITROGEN (BEAKER) (test cvpz=044) 35 mg/dL 7-21 CREATININE (BEAKER) (test kxzi=287) 2.19 mg/dL 0.57-1.25 GLUCOSE RANDOM (BEAKER) (test ogwa=940) 143 mg/dL 70-105 CALCIUM (BEAKER) (test kbpe=585) 8.1 mg/dL 8.4-10.2 EGFR (BEAKER) (test zspo=9150) 23 mL/min/1.73 sq m ESTIMATED GFR IS NOT ACCURATE CREATININE CLEARANCE IN PREDICTING GLOMERULAR FILTRATION RATE. ESTIMATED GFR IS NOT APPLICABLE FOR DIALYSIS PATIENTS. [id number] 04:25:00* Test Item Value Reference Range Comments PHOSPHORUS (BEAKER) (test tcnx=029) 3.5 mg/dL 2.3-4.7 [id number] 04:25:00* Test Item Value Reference Range Comments MAGNESIUM (BEAKER) (test hlba=883) 1.9 mg/dL 1.6-2.6 CBC (HEMOGRAM ONLY)2017-06-22 04:07:00* Test Item Value Reference Range Comments WHITE BLOOD CELL COUNT (BEAKER) (test xboc=730) 12.2 K/ L 3.5-10.5 RED BLOOD CELL COUNT (BEAKER) (test eumd=978) 2.77 M/ L 3.93-5.22 HEMOGLOBIN (BEAKER) (test zhtd=715) 8.2 GM/DL 11.2-15.7 HEMATOCRIT (BEAKER) (test jgae=932) 25.2 % 34.1-44.9 MEAN CORPUSCULAR VOLUME (BEAKER) (test ewzt=312) 91.0 fL 79.4-94.8 MEAN CORPUSCULAR HEMOGLOBIN (BEAKER) (test kves=085) 29.6 pg 25.6-32.2 MEAN CORPUSCULAR HEMOGLOBIN CONC (BEAKER) (test qrdv=685) 32.5 GM/DL 32.2- 35.5 RED CELL DISTRIBUTION WIDTH (BEAKER) (test ieqb=145) 14.6 % 11.7-14.4 PLATELET COUNT (BEAKER) (test sabw=722) 208 K/CU MM 150-450 MEAN PLATELET VOLUME (BEAKER) (test wluh=145) 10.5 fL 9.4-12.3 NUCLEATED RED BLOOD CELLS (BEAKER) (test znlp=500) 0 /100 WBC 0-0 POCT-GLUCOSE [id number] 23:34:00* Test Item Value Reference Range Comments POC-GLUCOSE METER (BEAKER) (test wrwd=9768) 197 mg/dL 70-110 TESTED AT [facility] [address] [facility] [address] POCT-GLUCOSE [id number] 17:02:00* Test Item Value Reference Range Comments POC-GLUCOSE METER (BEAKER) (test ksxi=1263) 197 mg/dL 70-110 TESTED AT [address] [address] MUGA, CARD IMAGING, EQ, REST, WM, [id number] 16:08:00FINAL REPORT PROCEDURE: Resting RADIONUCLIDE VENTRICULOGRAM (MUGA scan) CPT CODE: 10118 INDICATION: Prior revascularization (either PTCA or CABG) HISTORY: Cardiac risk factors: CAD/[place], ACB 06/16/17, Diabetes, Hypertension, Dyslipidemia. PROTOCOL: Autologous [...] LV systolic function. 2. Compared to previous [facility] study on 06/13/17 there is no significant change. Signed: Tiffany Dye Verified Date/ Time: 06/21/2017 16:08:07 Reading Location: [address] [facility] Reading Room -GLUCOSE [id number] 13:55:00* Test Item Value Reference Range Comments POC-GLUCOSE METER (BEAKER) (test mscc=5473) 220 mg/dL 70-110 TESTED AT [facility] [address] [facility] [address] POCT-GLUCOSE [id number] 08:07:00* Test Item Value Reference Range Comments POC-GLUCOSE METER (BEAKER) (test ugqf=4831) 194 mg/dL 70-110 TESTED AT [facility] [address] [facility] [address] [id number] 07:41:00* Test Item Value Reference Range Comments MAGNESIUM (BEAKER) (test bkwx=082) 1.9 mg/dL 1.6-2.6 BASIC METABOLIC [id number] 07:41:00* Test Item Value Reference Range Comments SODIUM (BEAKER) (test dszj=730) 137 meq/L 136-145 POTASSIUM (BEAKER) (test pzfg=391) 4.2 meq/L 3.5-5.1 CHLORIDE (BEAKER) (test epox=308) 103 meq/L 98-107 CO2 (BEAKER) (test fmsd=459) 27 meq/L 22-29 BLOOD UREA NITROGEN (BEAKER) (test vguy=549) 36 mg/dL 7-21 CREATININE (BEAKER) (test zmmn=738) 2.10 mg/dL 0.57-1.25 GLUCOSE RANDOM (BEAKER) (test mhsk=844) 170 mg/dL 70-105 CALCIUM (BEAKER) (test ultp=630) 8.4 mg/dL 8.4-10.2 EGFR (BEAKER) (test jzzv=1623) 24 mL/min/1.73 sq m ESTIMATED GFR IS NOT ACCURATE CREATININE CLEARANCE IN PREDICTING GLOMERULAR FILTRATION RATE. ESTIMATED GFR IS NOT APPLICABLE FOR DIALYSIS PATIENTS. RAD, CHEST, 1 VIEW, NON [id number] 07:37:00Reason for exam:->s/p CABGShould this be performed at the bedside?->YesFINAL REPORT HISTORY : s/p CABG. Comparison: 06/20/2017 Comment: Single portable view of the chest was obtained. The cardiac silhouette size is enlarged. There is a tortuous/ectatic thoracic aorta. A left-sided large bore chest tube is in place. No pleural effusion is seen. There is some patchy left basilar airspace disease. There is a questionable tiny left apical pneumothorax. The patient is status post sternotomy. Signed: Marco Elizabeth MDReport Verified Date/Time: 12/2016 07:37:03 Reading Location: [facility] Diagnostic Imaging Reading Room - [place] [address] W/PLT COUNT & AUTO [id number] 07:14:00* Test Item Value Reference Range Comments WHITE BLOOD CELL COUNT (BEAKER) (test qddd=576) 12.6 K/ L 3.5-10.5 RED BLOOD CELL COUNT (BEAKER) (test jkis=278) 2.96 M/ L 3.93-5.22 HEMOGLOBIN (BEAKER) (test uplw=437) 8.8 GM/DL 11.2-15.7 HEMATOCRIT (BEAKER) (test khfp=735) 27.1 % 34.1-44.9 MEAN CORPUSCULAR VOLUME (BEAKER) (test elbo=235) 91.6 fL 79.4-94.8 MEAN CORPUSCULAR HEMOGLOBIN (BEAKER) (test wqvk=924) 29.7 pg 25.6-32.2 MEAN CORPUSCULAR HEMOGLOBIN CONC (BEAKER) (test mvpb=544) 32.5 GM/DL 32.2- 35.5 RED CELL DISTRIBUTION WIDTH (BEAKER) (test raum=139) 14.4 % 11.7-14.4 PLATELET COUNT (BEAKER) (test pnbv=942) 183 K/CU MM 150-450 MEAN PLATELET VOLUME (BEAKER) (test ouly=632) 10.7 fL 9.4-12.3 NUCLEATED RED BLOOD CELLS (BEAKER) (test twsb=292) 0 /100 WBC 0-0 NEUTROPHILS RELATIVE PERCENT (BEAKER) (test pryg=839) 67 % LYMPHOCYTES RELATIVE PERCENT (BEAKER) (test kaor=640) 16 % MONOCYTES RELATIVE PERCENT (BEAKER) (test phul=901) 8 % EOSINOPHILS RELATIVE PERCENT (BEAKER) (test ospm=003) 7 % BASOPHILS RELATIVE PERCENT (BEAKER) (test mnbv=132) 1 % NEUTROPHILS ABSOLUTE COUNT (BEAKER) (test hdzr=415) 8.42 K/ L 1.56-6.13 LYMPHOCYTES ABSOLUTE COUNT (BEAKER) (test zssx=828) 2.03 K/ L 1.18-3.74 MONOCYTES ABSOLUTE COUNT (BEAKER) (test xeym=066) 1.06 K/ L 0.24-0.36 EOSINOPHILS ABSOLUTE COUNT (BEAKER) (test lajn=032) 0.90 K/ L 0.04-0.36 BASOPHILS ABSOLUTE COUNT (BEAKER) (test fyuf=400) 0.11 K/ L 0.01-0.08 IMMATURE GRANULOCYTES-RELATIVE PERCENT (BEAKER) (test fujs=1954) 1 % 0-1 POCT-GLUCOSE [id number] 20:56:00* Test Item Value Reference Range Comments POC-GLUCOSE METER (BEAKER) (test qtvh=5349) 212 mg/dL 70-110 TESTED AT [place] [id number] POCT-GLUCOSE [id number] 18:25:00* Test Item Value Reference Range Comments POC-GLUCOSE METER (BEAKER) (test hucn=2749) 189 mg/dL 70-110 TESTED AT [address] [address] POCT-GLUCOSE [id number] 13:06:00* Test Item Value Reference Range Comments POC-GLUCOSE METER (BEAKER) (test zfgj=0338) 288 mg/dL 70-110 TESTED AT [address] [address] POCT-GLUCOSE [id number] 08:54:00* Test Item Value Reference Range Comments POC-GLUCOSE METER (BEAKER) (test cosf=1793) 175 mg/dL 70-110 TESTED AT [address] [address] BASIC METABOLIC [id number] 08:21:00* Test Item Value Reference Range Comments SODIUM (BEAKER) (test uhqr=569) 135 meq/L 136-145 POTASSIUM (BEAKER) (test gyiz=589) 3.7 meq/L 3.5-5.1 CHLORIDE (BEAKER) (test fckl=936) 101 meq/L 98-107 CO2 (BEAKER) (test vfwm=871) 24 meq/L 22-29 BLOOD UREA NITROGEN (BEAKER) (test xpnk=702) 41 mg/dL 7-21 CREATININE (BEAKER) (test pioe=664) 2.34 mg/dL 0.57-1.25 GLUCOSE RANDOM (BEAKER) (test atij=682) 172 mg/dL 70-105 CALCIUM (BEAKER) (test lkmr=059) 8.3 mg/dL 8.4-10.2 EGFR (BEAKER) (test ihpz=5074) 21 mL/min/1.73 sq m ESTIMATED GFR IS NOT ACCURATE CREATININE CLEARANCE IN PREDICTING GLOMERULAR FILTRATION RATE. ESTIMATED GFR IS NOT APPLICABLE FOR DIALYSIS PATIENTS. [id number] 08:14:00* Test Item Value Reference Range Comments PHOSPHORUS (BEAKER) (test ykta=971) 3.3 mg/dL 2.3-4.7 [id number] 08:14:00* Test Item Value Reference Range Comments MAGNESIUM (BEAKER) (test bhsd=171) 1.8 mg/dL 1.6-2.6 HEPATIC FUNCTION [id number] 08:14:00* Test Item Value Reference Range Comments TOTAL PROTEIN (BEAKER) (test dneb=607) 5.7 gm/dL 6.0-8.3 ALBUMIN (BEAKER) (test dnnd=1416) 2.6 g/dL 3.5-5.0 BILIRUBIN TOTAL (BEAKER) (test ohym=210) 0.6 mg/dL 0.2-1.2 BILIRUBIN DIRECT (BEAKER) (test wygm=141) 0.3 mg/dL 0.1-0.5 ALKALINE PHOSPHATASE (BEAKER) (test ntig=485) 56 U/L 40-150 AST (SGOT) (BEAKER) (test vlbg=720) 16 U/L 5-34 ALT (SGPT) (BEAKER) (test waxd=853) 19 U/L 6-55 RAD, CHEST, 1 VIEW, NON [id number] 07:51:00Reason for exam:->s/p CABGShould this be performed at the bedside?->YesFINAL REPORT Chest one view. Clinical history: s/p CABG Comparison: 06/19/2017 Discussion: A frontal chest is provided. Cardiomediastinal contours are unchanged. Right IJ line has been removed. A left chest tube and a mediastinal drain are in stable position. There is mild vascular congestion. No new consolidation. No pneumothorax. No large effusion identified. Mild bibasilar atelectasis. Signed: Srikanth Arcoseport Verified Date/Time: 06/20/2017 07:51:22 Reading Location: [facility] Reading Room IUM, [id number] 07:20:00* Test Item Value Reference Range Comments CALCIUM IONIZED (BEAKER) (test efck=577) 1.02 mmol/L 1.12-1.27 PH, BLOOD (BEAKER) (test qloa=5805) 7.42 CBC W/PLT COUNT & AUTO [id number] 07:08:00* Test Item Value Reference Range Comments WHITE BLOOD CELL COUNT (BEAKER) (test ogwn=206) 11.8 K/ L 3.5-10.5 RED BLOOD CELL COUNT (BEAKER) (test rlyd=220) 3.13 M/ L 3.93-5.22 HEMOGLOBIN (BEAKER) (test ijnw=385) 9.1 GM/DL 11.2-15.7 HEMATOCRIT (BEAKER) (test nvrw=703) 28.2 % 34.1-44.9 MEAN CORPUSCULAR VOLUME (BEAKER) (test pxfm=305) 90.1 fL 79.4-94.8 MEAN CORPUSCULAR HEMOGLOBIN (BEAKER) (test whmb=674) 29.1 pg 25.6-32.2 MEAN CORPUSCULAR HEMOGLOBIN CONC (BEAKER) (test vwsq=742) 32.3 GM/DL 32.2- 35.5 RED CELL DISTRIBUTION WIDTH (BEAKER) (test xjys=942) 14.4 % 11.7-14.4 PLATELET COUNT (BEAKER) (test isnx=232) 164 K/CU MM 150-450 MEAN PLATELET VOLUME (BEAKER) (test eccl=104) 11.3 fL 9.4-12.3 NUCLEATED RED BLOOD CELLS (BEAKER) (test najn=808) 0 /100 WBC 0-0 NEUTROPHILS RELATIVE PERCENT (BEAKER) (test akpp=609) 65 % LYMPHOCYTES RELATIVE PERCENT (BEAKER) (test jofc=998) 23 % MONOCYTES RELATIVE PERCENT (BEAKER) (test fwrk=658) 7 % EOSINOPHILS RELATIVE PERCENT (BEAKER) (test bvyt=242) 4 % BASOPHILS RELATIVE PERCENT (BEAKER) (test cetz=403) 1 % NEUTROPHILS ABSOLUTE COUNT (BEAKER) (test fjiw=920) 7.64 K/ L 1.56-6.13 LYMPHOCYTES ABSOLUTE COUNT (BEAKER) (test pwyy=308) 2.73 K/ L 1.18-3.74 MONOCYTES ABSOLUTE COUNT (BEAKER) (test ytsy=321) 0.82 K/ L 0.24-0.36 EOSINOPHILS ABSOLUTE COUNT (BEAKER) (test pvxm=271) 0.44 K/ L 0.04-0.36 BASOPHILS ABSOLUTE COUNT (BEAKER) (test bbnu=887) 0.09 K/ L 0.01-0.08 IMMATURE GRANULOCYTES-RELATIVE PERCENT (BEAKER) (test emvp=8165) 0 % 0-1 POCT-GLUCOSE [id number] 21:00:00* Test Item Value Reference Range Comments POC-GLUCOSE METER (BEAKER) (test lutt=8528) 220 mg/dL 70-110 TESTED AT [address] [address] POCT-GLUCOSE [id number] 17:59:00* Test Item Value Reference Range Comments POC-GLUCOSE METER (BEAKER) (test qzgy=6086) 220 mg/dL 70-110 TESTED AT [address] [address] BASIC METABOLIC [id number] 13:06:00* Test Item Value Reference Range Comments SODIUM (BEAKER) (test yixs=029) 136 meq/L 136-145 POTASSIUM (BEAKER) (test inwj=630) 3.8 meq/L 3.5-5.1 CHLORIDE (BEAKER) (test jdvd=073) 105 meq/L 98-107 CO2 (BEAKER) (test jwnd=186) 20 meq/L 22-29 BLOOD UREA NITROGEN (BEAKER) (test iemz=837) 42 mg/dL 7-21 CREATININE (BEAKER) (test ntzc=157) 2.39 mg/dL 0.57-1.25 GLUCOSE RANDOM (BEAKER) (test qrmh=208) 208 mg/dL 70-105 CALCIUM (BEAKER) (test datt=751) 8.0 mg/dL 8.4-10.2 EGFR (BEAKER) (test waxb=8904) 20 mL/min/1.73 sq m ESTIMATED GFR IS NOT ACCURATE CREATININE CLEARANCE IN PREDICTING GLOMERULAR FILTRATION RATE. ESTIMATED GFR IS NOT APPLICABLE FOR DIALYSIS PATIENTS. [id number] 12:53:00* Test Item Value Reference Range Comments MAGNESIUM (BEAKER) (test gaaa=554) 1.9 mg/dL 1.6-2.6 POCT-GLUCOSE [id number] 12:45:00* Test Item Value Reference Range Comments POC-GLUCOSE METER (BEAKER) (test upug=5918) 227 mg/dL 70-110 TESTED AT [address] [address] HEMOGLOBIN AND [id number] 10:50:00* Test Item Value Reference Range Comments HEMOGLOBIN (BEAKER) (test yakd=811) 8.6 GM/DL 11.2-15.7 HEMATOCRIT (BEAKER) (test qgec=749) 26.3 % 34.1-44.9 RAD, CHEST, 1 VIEW, NON [id number] 08:29:00Reason for exam:->s/p CABGShould this be performed at the bedside?->YesFINAL REPORT Chest one view. Clinical history: s/p CABG Comparison: 06/18/2017 Discussion: A frontal chest is provided. Cardiomediastinal contours are unchanged. Lines and tubes are in stable position. There is mild vascular congestion and interstitial edema. No pneumothorax. Suspect small right effusion. Signed: Srikanth Arcos Verified Date/Time: 06/19/2017 08:29:34 Reading Location: [facility] Reading Room -GLUCOSE [id number] 06:56:00* Test Item Value Reference Range Comments POC-GLUCOSE METER (BEAKER) (test smec=6943) 187 mg/dL 70-110 TESTED AT [address] [address] BASIC METABOLIC [id number] 06:35:00* Test Item Value Reference Range Comments SODIUM (BEAKER) (test trdc=748) 136 meq/L 136-145 POTASSIUM (BEAKER) (test ojdw=859) 4.1 meq/L 3.5-5.1 CHLORIDE (BEAKER) (test wuls=390) 104 meq/L 98-107 CO2 (BEAKER) (test iuxk=022) 22 meq/L 22-29 BLOOD UREA NITROGEN (BEAKER) (test nsnj=945) 42 mg/dL 7-21 CREATININE (BEAKER) (test ikbr=822) 2.58 mg/dL 0.57-1.25 GLUCOSE RANDOM (BEAKER) (test eedk=921) 181 mg/dL 70-105 CALCIUM (BEAKER) (test gnim=247) 8.2 mg/dL 8.4-10.2 EGFR (BEAKER) (test wnyq=1612) 19 mL/min/1.73 sq m ESTIMATED GFR IS NOT ACCURATE CREATININE CLEARANCE IN PREDICTING GLOMERULAR FILTRATION RATE. ESTIMATED GFR IS NOT APPLICABLE FOR DIALYSIS PATIENTS. [id number] 04:59:00* Test Item Value Reference Range Comments PHOSPHORUS (BEAKER) (test bgkq=868) 4.5 mg/dL 2.3-4.7 [id number] 04:59:00* Test Item Value Reference Range Comments MAGNESIUM (BEAKER) (test rhug=923) 1.9 mg/dL 1.6-2.6 HEPATIC FUNCTION [id number] 04:59:00* Test Item Value Reference Range Comments TOTAL PROTEIN (BEAKER) (test dfnb=449) 5.2 gm/dL 6.0-8.3 ALBUMIN (BEAKER) (test odlz=1953) 2.4 g/dL 3.5-5.0 BILIRUBIN TOTAL (BEAKER) (test ttsw=870) 0.5 mg/dL 0.2-1.2 BILIRUBIN DIRECT (BEAKER) (test hwri=581) 0.2 mg/dL 0.1-0.5 ALKALINE PHOSPHATASE (BEAKER) (test stxa=061) 53 U/L 40-150 AST (SGOT) (BEAKER) (test gxng=294) 18 U/L 5-34 ALT (SGPT) (BEAKER) (test paux=286) 18 U/L 6-55 LACTATE DEHYDROGENASE (LDH)2017-06-19 04:59:00* Test Item Value Reference Range Comments LACTATE DEHYDROGENASE (BEAKER) (test fmgx=480) 262 U/L 125-220 CBC W/PLT COUNT & AUTO [id number] 04:38:00* Test Item Value Reference Range Comments WHITE BLOOD CELL COUNT (BEAKER) (test brld=000) 12.5 K/ L 3.5-10.5 RED BLOOD CELL COUNT (BEAKER) (test povv=484) 2.36 M/ L 3.93-5.22 HEMOGLOBIN (BEAKER) (test vcry=455) 6.7 GM/DL 11.2-15.7 HEMATOCRIT (BEAKER) (test udit=492) 21.1 % 34.1-44.9 MEAN CORPUSCULAR VOLUME (BEAKER) (test dbtp=353) 89.4 fL 79.4-94.8 MEAN CORPUSCULAR HEMOGLOBIN (BEAKER) (test sotz=495) 28.4 pg 25.6-32.2 MEAN CORPUSCULAR HEMOGLOBIN CONC (BEAKER) (test pckf=937) 31.8 GM/DL 32.2- 35.5 RED CELL DISTRIBUTION WIDTH (BEAKER) (test aifn=735) 14.4 % 11.7-14.4 PLATELET COUNT (BEAKER) (test ybkf=880) 113 K/CU MM 150-450 MEAN PLATELET VOLUME (BEAKER) (test pqpu=390) 11.7 fL 9.4-12.3 NUCLEATED RED BLOOD CELLS (BEAKER) (test hora=988) 0 /100 WBC 0-0 NEUTROPHILS RELATIVE PERCENT (BEAKER) (test ekcg=700) 77 % LYMPHOCYTES RELATIVE PERCENT (BEAKER) (test bahc=175) 15 % MONOCYTES RELATIVE PERCENT (BEAKER) (test qovb=640) 6 % EOSINOPHILS RELATIVE PERCENT (BEAKER) (test acny=190) 1 % BASOPHILS RELATIVE PERCENT (BEAKER) (test ldrz=177) 1 % NEUTROPHILS ABSOLUTE COUNT (BEAKER) (test vjmn=502) 9.63 K/ L 1.56-6.13 LYMPHOCYTES ABSOLUTE COUNT (BEAKER) (test orjx=961) 1.86 K/ L 1.18-3.74 MONOCYTES ABSOLUTE COUNT (BEAKER) (test bhir=866) 0.68 K/ L 0.24-0.36 EOSINOPHILS ABSOLUTE COUNT (BEAKER) (test tgbt=026) 0.15 K/ L 0.04-0.36 BASOPHILS ABSOLUTE COUNT (BEAKER) (test swvi=589) 0.08 K/ L 0.01-0.08 IMMATURE GRANULOCYTES-RELATIVE PERCENT (BEAKER) (test mtmn=7178) 1 % 0-1 CALCIUM, [id number] 03:47:00* Test Item Value Reference Range Comments CALCIUM IONIZED (BEAKER) (test uoay=539) 1.13 mmol/L 1.12-1.27 PH, BLOOD (BEAKER) (test hpdd=3250) 7.41 OXYGEN SATURATION, [id number] 03:46:00* Test Item Value Reference Range Comments O2 SATURATION (MEASURED) (BEAKER) (test pnmb=7219) 57.8 % [id number] 19:13:00* Test Item Value Reference Range Comments MAGNESIUM (BEAKER) (test grio=771) 2.2 mg/dL 1.6-2.6 Specimen slightly hemolyzed PRN - repeat glucose levels every 1 hour or as specified by insulin titration orders until glucose level is less than 450 mg/dLCheck Serum Magnesium level 2 hours after IV magnesium replacement.[id number] 19:13:00* Test Item Value Reference Range Comments GLUCOSE RANDOM (BEAKER) (test tzeg=489) 150 mg/dL 70-105 PRN - repeat glucose levels every 1 hour or as specified by insulin titration orders until glucose level is less than 450 mg/dLCheck Serum Magnesium level 2 hours after IV magnesium replacement.[id number] 14:28:00* Test Item Value Reference Range Comments POTASSIUM (BEAKER) (test bbxx=108) 4.2 meq/L 3.5-5.1 PRN - repeat glucose levels every 1 hour or as specified by insulin titration orders until glucose level is less than 450 mg/dLCheck Serum Magnesium level 2 hours after IV magnesium replacement.Check Serum Potassium level 2 hours after oral potassium replacement completed or 30 min after intravenous potassium replacement.[id number] 14:28:00* Test Item Value Reference Range Comments MAGNESIUM (BEAKER) (test mzqo=478) 2.0 mg/dL 1.6-2.6 PRN - repeat glucose levels every 1 hour or as specified by insulin titration orders until glucose level is less than 450 mg/dLCheck Serum Magnesium level 2 hours after IV magnesium replacement.Check Serum Potassium level 2 hours after oral potassium replacement completed or 30 min after intravenous potassium replacement.[id number] 14:28:00* Test Item Value Reference Range Comments GLUCOSE RANDOM (BEAKER) (test ldqf=142) 150 mg/dL 70-105 PRN - repeat glucose levels every 1 hour or as specified by insulin titration orders until glucose level is less than 450 mg/dLCheck Serum Magnesium level 2 hours after IV magnesium replacement.Check Serum Potassium level 2 hours after oral potassium replacement completed or 30 min after intravenous potassium replacement.HEMOGLOBIN AND [id number] 14:17:00* Test Item Value Reference Range Comments HEMOGLOBIN (BEAKER) (test wuvw=696) 7.1 GM/DL 11.2-15.7 HEMATOCRIT (BEAKER) (test qdgx=510) 21.5 % 34.1-44.9 CALCIUM, [id number] 14:13:00* Test Item Value Reference Range Comments CALCIUM IONIZED (BEAKER) (test knkh=574) 1.22 mmol/L 1.12-1.27 PH, BLOOD (BEAKER) (test qghk=4105) 7.43 Check serum Ionized Calcium level after 4 hours after IV Calcium replacement.[id number] 08:39:00* Test Item Value Reference Range Comments MAGNESIUM (BEAKER) (test macj=166) 2.1 mg/dL 1.6-2.6 Specimen slightly hemolyzed PRN - repeat glucose levels every 1 hour or as specified by insulin titration orders until glucose level is less than 450 mg/dLCheck Serum Magnesium level 2 hours after IV magnesium replacement.Check Serum Potassium level 2 hours after oral potassium replacement completed or 30 min after intravenous potassium replacement.[id number] 08:39:00* Test Item Value Reference Range Comments POTASSIUM (BEAKER) (test qwwh=456) 4.6 meq/L 3.5-5.1 Specimen slightly hemolyzed PRN - repeat glucose levels every 1 hour or as specified by insulin titration orders until glucose level is less than 450 mg/dLCheck Serum Magnesium level 2 hours after IV magnesium replacement.Check Serum Potassium level 2 hours after oral potassium replacement completed or 30 min after intravenous potassium replacement.[id number] 08:39:00* Test Item Value Reference Range Comments GLUCOSE RANDOM (BEAKER) (test vzub=852) 153 mg/dL 70-105 PRN - repeat glucose levels every 1 hour or as specified by insulin titration orders until glucose level is less than 450 mg/dLCheck Serum Magnesium level 2 hours after IV magnesium replacement.Check Serum Potassium level 2 hours after oral potassium replacement completed or 30 min after intravenous potassium replacement.BLOOD GAS, [id number] 08:27:00* Test Item Value Reference Range Comments PH ARTERIAL (BEAKER) (test qzxf=841) 7.44 7.35-7.45 PCO2 ARTERIAL (BEAKER) (test hjyd=882) 29 mmHg 35-45 PO2 ARTERIAL (BEAKER) (test hadc=979) 72 mmHg 80-90 O2 SATURATION ARTERIAL (BEAKER) (test somi=274) 95.4 % 96.0-97.0 HCO3 ARTERIAL (BEAKER) (test epxr=821) 20 mmol/L 21-29 BASE EXCESS ARTERIAL (BEAKER) (test gdpn=351) -4.1 mmol/L -2.0-3.0 PATIENT TEMPERATURE (BEAKER) (test oqbt=4917) 36.7 C FIO2 (BEAKER) (test aslr=2576) 32.0 % RAD, CHEST, 1 VIEW, NON [id number] 05:53:00Reason for exam:->intubated/ CTShould this be performed at the bedside?->YesFINAL REPORT RAD, CHEST, 1 VIEW, NON DEPT INDICATION: intubated/CT COMPARISON: Prior day's exam FINDINGS: Portable frontal view of the chest. IMPRESSION: Support Lines: Interval extubation and removal of the enteric tube. Remaining support hardware is stable. Lungs and pleura: No focal airspace disease is present. Small subsegmental atelectasis versus trace left effusion. No pneumothorax.Heart and mediastinum: Stable contours. Stable surgical changes.Additional findings: None. Signed: JR Bates Robert MDReport Verified Date/Time: 06/18/2017 05:53:02 Reading Location: [facility] C013Y CT Body Reading Room -GLUCOSE [id number] 05:10:00* Test Item Value Reference Range Comments POC-GLUCOSE METER (BEAKER) (test wvzp=9187) 145 mg/dL 70-110 TESTED AT [place] [id number] [facility] [address] POCT-GLUCOSE [id number] 05:10:00* Test Item Value Reference Range Comments POC-GLUCOSE METER (BEAKER) (test lhdm=8718) 144 mg/dL 70-110 TESTED AT [address] [address] CALCIUM, [id number] 04:07:00* Test Item Value Reference Range Comments CALCIUM IONIZED (BEAKER) (test zzls=295) 1.17 mmol/L 1.12-1.27 PH, BLOOD (BEAKER) (test keie=1668) 7.42 OXYGEN SATURATION, [id number] 04:05:00* Test Item Value Reference Range Comments O2 SATURATION (MEASURED) (BEAKER) (test oyxt=5287) 98.4 % BASIC METABOLIC [id number] 03:48:00* Test Item Value Reference Range Comments SODIUM (BEAKER) (test irgl=226) 140 meq/L 136-145 POTASSIUM (BEAKER) (test mzsk=574) 4.3 meq/L 3.5-5.1 CHLORIDE (BEAKER) (test wldb=899) 110 meq/L 98-107 CO2 (BEAKER) (test kfly=211) 20 meq/L 22-29 BLOOD UREA NITROGEN (BEAKER) (test ymzk=912) 35 mg/dL 7-21 CREATININE (BEAKER) (test xmoy=820) 2.64 mg/dL 0.57-1.25 GLUCOSE RANDOM (BEAKER) (test rbqj=629) 140 mg/dL 70-105 CALCIUM (BEAKER) (test pbrw=559) 8.7 mg/dL 8.4-10.2 EGFR (BEAKER) (test nyxt=9850) 18 mL/min/1.73 sq m ESTIMATED GFR IS NOT ACCURATE CREATININE CLEARANCE IN PREDICTING GLOMERULAR FILTRATION RATE. ESTIMATED GFR IS NOT APPLICABLE FOR DIALYSIS PATIENTS. LACTIC ACID, ARTERIAL, WHOLE [id number] 03:45:00* Test Item Value Reference Range Comments LACTATE BLOOD ARTERIAL (2) (BEAKER) (test dzhk=7135) 1.1 mmol/L 0.5-2.2 Effective 11/18/2015: Units/Reference Range ChangeNew: 0.5-2.2 mmol/L Previous: 5 -20 mg/[id number] 03:45:00* Test Item Value Reference Range Comments PHOSPHORUS (BEAKER) (test mjjt=115) 5.1 mg/dL 2.3-4.7 [id number] 03:45:00* Test Item Value Reference Range Comments MAGNESIUM (BEAKER) (test lmxl=736) 2.2 mg/dL 1.6-2.6 HEPATIC FUNCTION [id number] 03:45:00* Test Item Value Reference Range Comments TOTAL PROTEIN (BEAKER) (test fkje=463) 5.1 gm/dL 6.0-8.3 ALBUMIN (BEAKER) (test fbov=0250) 2.4 g/dL 3.5-5.0 BILIRUBIN TOTAL (BEAKER) (test cizd=796) 0.4 mg/dL 0.2-1.2 BILIRUBIN DIRECT (BEAKER) (test lted=748) 0.2 mg/dL 0.1-0.5 ALKALINE PHOSPHATASE (BEAKER) (test dpwu=280) 54 U/L 40-150 AST (SGOT) (BEAKER) (test vgly=112) 30 U/L 5-34 ALT (SGPT) (BEAKER) (test spsv=418) 22 U/L 6-55 LACTATE DEHYDROGENASE (LDH)2017-06-18 03:45:00* Test Item Value Reference Range Comments LACTATE DEHYDROGENASE (BEAKER) (test glec=110) 282 U/L 125-220 CBC W/PLT COUNT & AUTO [id number] 03:45:00* Test Item Value Reference Range Comments WHITE BLOOD CELL COUNT (BEAKER) (test gvlk=530) 17.0 K/ L 3.5-10.5 RED BLOOD CELL COUNT (BEAKER) (test aoel=988) 2.74 M/ L 3.93-5.22 HEMOGLOBIN (BEAKER) (test blpw=634) 7.8 GM/DL 11.2-15.7 HEMATOCRIT (BEAKER) (test euiq=799) 24.3 % 34.1-44.9 MEAN CORPUSCULAR VOLUME (BEAKER) (test vyfw=296) 88.7 fL 79.4-94.8 MEAN CORPUSCULAR HEMOGLOBIN (BEAKER) (test ahsw=946) 28.5 pg 25.6-32.2 MEAN CORPUSCULAR HEMOGLOBIN CONC (BEAKER) (test oehg=985) 32.1 GM/DL 32.2- 35.5 RED CELL DISTRIBUTION WIDTH (BEAKER) (test cjsg=538) 14.5 % 11.7-14.4 PLATELET COUNT (BEAKER) (test yhqe=894) 131 K/CU MM 150-450 MEAN PLATELET VOLUME (BEAKER) (test jiij=910) 11.6 fL 9.4-12.3 NUCLEATED RED BLOOD CELLS (BEAKER) (test bmvq=359) 0 /100 WBC 0-0 NEUTROPHILS RELATIVE PERCENT (BEAKER) (test ndxa=845) 78 % LYMPHOCYTES RELATIVE PERCENT (BEAKER) (test gufi=954) 13 % MONOCYTES RELATIVE PERCENT (BEAKER) (test vmqw=162) 8 % EOSINOPHILS RELATIVE PERCENT (BEAKER) (test nchz=538) 0 % BASOPHILS RELATIVE PERCENT (BEAKER) (test gvxz=573) 1 % NEUTROPHILS ABSOLUTE COUNT (BEAKER) (test kcaw=812) 13.19 K/ L 1.56-6.13 LYMPHOCYTES ABSOLUTE COUNT (BEAKER) (test igav=018) 2.23 K/ L 1.18-3.74 MONOCYTES ABSOLUTE COUNT (BEAKER) (test feug=754) 1.38 K/ L 0.24-0.36 EOSINOPHILS ABSOLUTE COUNT (BEAKER) (test urhr=010) 0.03 K/ L 0.04-0.36 BASOPHILS ABSOLUTE COUNT (BEAKER) (test hzxg=962) 0.10 K/ L 0.01-0.08 IMMATURE GRANULOCYTES-RELATIVE PERCENT (BEAKER) (test pnmn=4441) 0 % 0-1 POCT-GLUCOSE [id number] 00:46:00* Test Item Value Reference Range Comments POC-GLUCOSE METER (BEAKER) (test fyyl=6963) 136 mg/dL 70-110 TESTED AT [place] [id number] POCT-GLUCOSE [id number] 21:00:00* Test Item Value Reference Range Comments POC-GLUCOSE METER (BEAKER) (test kzin=9162) 133 mg/dL 70-110 TESTED AT [address] [address] POCT-GLUCOSE [id number] 18:54:00* Test Item Value Reference Range Comments POC-GLUCOSE METER (BEAKER) (test spun=6144) 130 mg/dL 70-110 TESTED AT [address] [address] BASIC METABOLIC [id number] 17:53:00* Test Item Value Reference Range Comments SODIUM (BEAKER) (test wgsn=859) 142 meq/L 136-145 POTASSIUM (BEAKER) (test ppkk=433) 4.4 meq/L 3.5-5.1 CHLORIDE (BEAKER) (test cspm=359) 113 meq/L 98-107 CO2 (BEAKER) (test evyh=081) 18 meq/L 22-29 BLOOD UREA NITROGEN (BEAKER) (test yoiu=911) 33 mg/dL 7-21 CREATININE (BEAKER) (test dhcm=123) 2.64 mg/dL 0.57-1.25 GLUCOSE RANDOM (BEAKER) (test qyjn=778) 127 mg/dL 70-105 CALCIUM (BEAKER) (test esdp=819) 8.7 mg/dL 8.4-10.2 EGFR (BEAKER) (test yxcx=4572) 18 mL/min/1.73 sq m ESTIMATED GFR IS NOT ACCURATE CREATININE CLEARANCE IN PREDICTING GLOMERULAR FILTRATION RATE. ESTIMATED GFR IS NOT APPLICABLE FOR DIALYSIS PATIENTS. SODIUM NA-STAT [id number] 17:19:00* Test Item Value Reference Range Comments SODIUM (BEAKER) (test pacl=695) 135 meq/L 135-148 POTASSIUM-STAT [id number] 17:19:00* Test Item Value Reference Range Comments POTASSIUM (BEAKER) (test hsho=479) 4.2 meq/L 3.6-5.5 BLOOD GAS, [id number] 17:19:00* Test Item Value Reference Range Comments PH ARTERIAL (BEAKER) (test evgs=594) 7.41 7.35-7.45 PCO2 ARTERIAL (BEAKER) (test ybmt=458) 33 mmHg 35-45 PO2 ARTERIAL (BEAKER) (test xzby=781) 93 mmHg 80-90 O2 SATURATION ARTERIAL (BEAKER) (test msto=119) 97.3 % 96.0-97.0 HCO3 ARTERIAL (BEAKER) (test ezyw=003) 21 mmol/L 21-29 BASE EXCESS ARTERIAL (BEAKER) (test vczg=693) -3.7 mmol/L -2.0-3.0 PATIENT TEMPERATURE (BEAKER) (test ihsy=4518) 36.7 C FIO2 (BEAKER) (test wpys=7904) 36.0 % GLUCOSE-STAT [id number] 17:19:00* Test Item Value Reference Range Comments GLUCOSE RANDOM (BEAKER) (test tzte=526) 125 mg/dL 70-110 HGB/HCT (H&H) - STAT [id number] 17:19:00* Test Item Value Reference Range Comments HEMOGLOBIN (BEAKER) (test bpyb=707) 9.0 g/dL 12.0-15.0 HEMATOCRIT (BEAKER) (test hynu=481) 26.0 % 36.0-45.0 TROPONIN [id number] 15:21:00* Test Item Value Reference Range Comments TROPONIN I (MARKAKER) (test wvww=197) 2.76 ng/mL 0.00-0.03 Troponin I (TnI) levels must be interpreted [...] failure, acidosis, acute neurological disease, and persistent tachyarrhythmia.CREATINE KINASE (CK), TOTAL AND [id number] 15:05:00* Test Item Value Reference Range Comments CREATINE KINASE TOTAL (BEAKER) (test ilkm=328) 318 U/L 29-200 CREATINE KINASE-MB (BEAKER) (test fxty=753) 4.3 ng/mL 0.0-6.6 CREATINE KINASE-MB INDEX (MARKAKER) (test vdjz=756) 1.4 % CK-MB Reference Range:<6.7 Normal6.7-10.0 Borderline>10.0 [id number] 14:52:00* Test Item Value Reference Range Comments POTASSIUM (BEAKER) (test xfxl=195) 4.3 meq/L 3.5-5.1 PRN - repeat glucose levels every 1 hour or as specified by insulin titration orders until glucose level is less than 450 mg/dLCheck Serum Magnesium level 2 hours after IV magnesium replacement.PRN - repeat potassium levels every 1 hour until glucose level is less than 450 mg/[id number] 14:52:00* Test Item Value Reference Range Comments MAGNESIUM (BEAKER) (test bntk=626) 2.2 mg/dL 1.6-2.6 PRN - repeat glucose levels every 1 hour or as specified by insulin titration orders until glucose level is less than 450 mg/dLCheck Serum Magnesium level 2 hours after IV magnesium replacement.PRN - repeat potassium levels every 1 hour until glucose level is less than 450 mg/[id number] 14:52:00* Test Item Value Reference Range Comments GLUCOSE RANDOM (BEAKER) (test ekuz=672) 129 mg/dL 70-105 PRN - repeat glucose levels every 1 hour or as specified by insulin titration orders until glucose level is less than 450 mg/dLCheck Serum Magnesium level 2 hours after IV magnesium replacement.PRN - repeat potassium levels every 1 hour until glucose level is less than 450 mg/dLCALCIUM, [id number] 10:38:00* Test Item Value Reference Range Comments CALCIUM IONIZED (BEAKER) (test sfla=488) 1.19 mmol/L 1.12-1.27 PH, BLOOD (BEAKER) (test btsi=4250) 7.45 BLOOD GAS, [id number] 10:37:00* Test Item Value Reference Range Comments PH ARTERIAL (BEAKER) (test zswp=751) 7.46 7.35-7.45 PCO2 ARTERIAL (BEAKER) (test uhba=054) 28 mmHg 35-45 PO2 ARTERIAL (BEAKER) (test nyhk=626) 88 mmHg 80-90 O2 SATURATION ARTERIAL (BEAKER) (test jwfx=385) 97.3 % 96.0-97.0 HCO3 ARTERIAL (BEAKER) (test kglz=545) 19 mmol/L 21-29 BASE EXCESS ARTERIAL (BEAKER) (test xwbf=060) -3.7 mmol/L -2.0-3.0 PATIENT TEMPERATURE (BEAKER) (test qdhw=7391) 36.7 C FIO2 (BEAKER) (test yvcc=9097) 40.0 % GLUCOSE-STAT [id number] 10:37:00* Test Item Value Reference Range Comments GLUCOSE RANDOM (BEAKER) (test vtwi=617) 146 mg/dL 70-110 HGB/HCT (H&H) - STAT [id number] 10:37:00* Test Item Value Reference Range Comments HEMOGLOBIN (BEAKER) (test zkvp=297) 10.0 g/dL 12.0-15.0 HEMATOCRIT (BEAKER) (test poby=094) 29.0 % 36.0-45.0 SODIUM NA-STAT [id number] 10:36:00* Test Item Value Reference Range Comments SODIUM (BEAKER) (test xbfb=079) 136 meq/L 135-148 POTASSIUM-STAT [id number] 10:36:00* Test Item Value Reference Range Comments POTASSIUM (BEAKER) (test nvli=440) 4.4 meq/L 3.6-5.5 [id number] 09:17:00* Test Item Value Reference Range Comments MAGNESIUM (BEAKER) (test ihjm=825) 2.4 mg/dL 1.6-2.6 Check Serum Magnesium level 2 hours after IV magnesium replacement.CALCIUM, [id number] 08:57:00* Test Item Value Reference Range Comments CALCIUM IONIZED (BEAKER) (test fumx=043) 1.16 mmol/L 1.12-1.27 PH, BLOOD (BEAKER) (test uiod=9607) 7.43 BLOOD GAS, [id number] 08:57:00* Test Item Value Reference Range Comments PH ARTERIAL (BEAKER) (test sfwn=645) 7.44 7.35-7.45 PCO2 ARTERIAL (BEAKER) (test xkpl=531) 29 mmHg 35-45 PO2 ARTERIAL (BEAKER) (test futt=718) 108 mmHg 80-90 O2 SATURATION ARTERIAL (BEAKER) (test vldl=112) 98.2 % 96.0-97.0 HCO3 ARTERIAL (BEAKER) (test ynrh=880) 19 mmol/L 21-29 BASE EXCESS ARTERIAL (BEAKER) (test kocg=569) -4.1 mmol/L -2.0-3.0 PATIENT TEMPERATURE (BEAKER) (test zfpu=1481) 36.7 C FIO2 (BEAKER) (test cdps=6528) 40.0 % GLUCOSE-STAT [id number] 08:57:00* Test Item Value Reference Range Comments GLUCOSE RANDOM (BEAKER) (test gtfx=386) 152 mg/dL 70-110 HGB/HCT (H&H) - STAT [id number] 08:57:00* Test Item Value Reference Range Comments HEMOGLOBIN (BEAKER) (test kezs=409) 9.3 g/dL 12.0-15.0 HEMATOCRIT (BEAKER) (test fydw=741) 27.0 % 36.0-45.0 SODIUM NA-STAT [id number] 08:54:00* Test Item Value Reference Range Comments SODIUM (BEAKER) (test nsrx=841) 135 meq/L 135-148 POTASSIUM-STAT [id number] 08:54:00* Test Item Value Reference Range Comments POTASSIUM (BEAKER) (test ijwm=648) 4.5 meq/L 3.6-5.5 TROPONIN [id number] 08:40:00* Test Item Value Reference Range Comments TROPONIN I (BEAKER) (test jxph=027) 3.78 ng/mL 0.00-0.03 Troponin I (TnI) levels must be interpreted [...] failure, acidosis, acute neurological disease, and persistent tachyarrhythmia.CREATINE KINASE (CK), TOTAL AND [id number] 07:49:00* Test Item Value Reference Range Comments CREATINE KINASE TOTAL (BEAKER) (test alcf=508) 289 U/L 29-200 CREATINE KINASE-MB (BEAKER) (test gadc=416) 5.5 ng/mL 0.0-6.6 CREATINE KINASE-MB INDEX (BEAKER) (test dyxd=633) 1.9 % CK-MB Reference Range:<6.7 Normal6.7-10.0 Borderline>10.0 AbnormalLACTIC ACID, ARTERIAL, WHOLE [id number] 07:46:00* Test Item Value Reference Range Comments LACTATE BLOOD ARTERIAL (2) (BEAKER) (test zlnv=0128) 1.1 mmol/L 0.5-2.2 Effective 11/18/2015: Units/Reference Range ChangeNew: 0.5-2.2 mmol/L Previous: 5 -20 mg/dLBLOOD GAS, [id number] 07:15:00* Test Item Value Reference Range Comments PH ARTERIAL (BEAKER) (test fvce=533) 7.38 7.35-7.45 PCO2 ARTERIAL (BEAKER) (test ywbd=402) 35 mmHg 35-45 PO2 ARTERIAL (BEAKER) (test yhyk=482) 107 mmHg 80-90 O2 SATURATION ARTERIAL (BEAKER) (test aawo=782) 97.8 % 96.0-97.0 HCO3 ARTERIAL (BEAKER) (test gccd=696) 20 mmol/L 21-29 BASE EXCESS ARTERIAL (BEAKER) (test tzla=580) -4.4 mmol/L -2.0-3.0 PATIENT TEMPERATURE (BEAKER) (test hnix=7583) 37.0 C FIO2 (BEAKER) (test cjjn=5333) 100.0 % POCT-GLUCOSE [id number] 06:51:00* Test Item Value Reference Range Comments POC-GLUCOSE METER (BEAKER) (test issx=1355) 181 mg/dL 70-110 TESTED AT [facility] [address] [facility] [address] TROPONIN [id number] 06:42:00* Test Item Value Reference Range Comments TROPONIN I (BEAKER) (test jfnj=500) 3.98 ng/mL 0.00-0.03 Troponin I (TnI) levels must be interpreted [...] failure, acidosis, acute neurological disease, and persistent tachyarrhythmia.BASIC METABOLIC [id number] 06:23:00 * Test Item Value Reference Range Comments SODIUM (BEAKER) (test ifaj=810) 142 meq/L 136-145 POTASSIUM (BEAKER) (test qizh=896) 4.6 meq/L 3.5-5.1 CHLORIDE (BEAKER) (test tjwh=485) 114 meq/L 98-107 CO2 (BEAKER) (test durb=585) 19 meq/L 22-29 BLOOD UREA NITROGEN (BEAKER) (test zvkc=508) 25 mg/dL 7-21 CREATININE (BEAKER) (test xoed=675) 2.30 mg/dL 0.57-1.25 GLUCOSE RANDOM (BEAKER) (test nwiz=264) 174 mg/dL 70-105 CALCIUM (BEAKER) (test qvhk=731) 8.5 mg/dL 8.4-10.2 EGFR (BEAKER) (test woci=9601) 21 mL/min/1.73 sq m ESTIMATED GFR IS NOT ACCURATE CREATININE CLEARANCE IN PREDICTING GLOMERULAR FILTRATION RATE. ESTIMATED GFR IS NOT APPLICABLE FOR DIALYSIS PATIENTS. CREATINE KINASE (CK), TOTAL AND [id number] 05:22:00* Test Item Value Reference Range Comments CREATINE KINASE TOTAL (BEAKER) (test wdoi=104) 301 U/L 29-200 CREATINE KINASE-MB (BEAKER) (test msjt=073) 6.9 ng/mL 0.0-6.6 CREATINE KINASE-MB INDEX (BEAKER) (test umuf=078) 2.3 % CK-MB Reference Range:<6.7 Normal6.7-10.0 Borderline>10.0 [id number] 05:19:00* Test Item Value Reference Range Comments MAGNESIUM (BEAKER) (test ervz=776) 2.2 mg/dL 1.6-2.6 CBC W/PLT COUNT & AUTO [id number] 05:15:00* Test Item Value Reference Range Comments WHITE BLOOD CELL COUNT (BEAKER) (test zyyy=916) 13.4 K/ L 3.5-10.5 RED BLOOD CELL COUNT (BEAKER) (test apvm=979) 3.21 M/ L 3.93-5.22 HEMOGLOBIN (BEAKER) (test mumb=570) 9.2 GM/DL 11.2-15.7 HEMATOCRIT (BEAKER) (test xisz=569) 28.7 % 34.1-44.9 MEAN CORPUSCULAR VOLUME (BEAKER) (test dxci=908) 89.4 fL 79.4-94.8 MEAN CORPUSCULAR HEMOGLOBIN (BEAKER) (test dmia=692) 28.7 pg 25.6-32.2 MEAN CORPUSCULAR HEMOGLOBIN CONC (BEAKER) (test rose=783) 32.1 GM/DL 32.2- 35.5 RED CELL DISTRIBUTION WIDTH (BEAKER) (test pgfb=150) 14.0 % 11.7-14.4 PLATELET COUNT (BEAKER) (test kaus=549) 150 K/CU MM 150-450 MEAN PLATELET VOLUME (BEAKER) (test armm=142) 12.0 fL 9.4-12.3 NUCLEATED RED BLOOD CELLS (BEAKER) (test ezjo=235) 0 /100 WBC 0-0 NEUTROPHILS RELATIVE PERCENT (BEAKER) (test bwpb=787) 83 % LYMPHOCYTES RELATIVE PERCENT (BEAKER) (test mgqu=493) 11 % MONOCYTES RELATIVE PERCENT (BEAKER) (test lqit=779) 6 % EOSINOPHILS RELATIVE PERCENT (BEAKER) (test fcye=719) 0 % BASOPHILS RELATIVE PERCENT (BEAKER) (test knon=576) 1 % NEUTROPHILS ABSOLUTE COUNT (BEAKER) (test zdir=510) 11.08 K/ L 1.56-6.13 LYMPHOCYTES ABSOLUTE COUNT (BEAKER) (test xgzp=551) 1.41 K/ L 1.18-3.74 MONOCYTES ABSOLUTE COUNT (BEAKER) (test qhgu=165) 0.78 K/ L 0.24-0.36 EOSINOPHILS ABSOLUTE COUNT (BEAKER) (test yaxc=744) 0.01 K/ L 0.04-0.36 BASOPHILS ABSOLUTE COUNT (BEAKER) (test mawa=108) 0.08 K/ L 0.01-0.08 IMMATURE GRANULOCYTES-RELATIVE PERCENT (BEAKER) (test ypof=5992) 0 % 0-1 RAD, CHEST, 1 VIEW, NON [id number] 04:46:00Reason for exam:->intubated/ CTShould this be performed at the bedside?->YesFINAL REPORT RAD, CHEST, 1 VIEW, NON DEPT INDICATION: intubated/CT COMPARISON: Prior day's exam FINDINGS: Portable frontal view of the chest. IMPRESSION: Limited by patient rotation.Support Lines: Endotracheal tube again noted to project at approximately the level of the thoracic inlet. Remaining support hardware is stable. Lungs and pleura: Mild congestive changes without focal airspace disease or effusion. No visible pneumothorax.Heart and mediastinum: Stable contours when accounting for patient rotation. Stable surgical changes.Additional findings: None. Signed: JR Bates Robert MDReport Verified Date/Time: 06/17/2017 04:46:27 Reading Location: [facility] C013Y CT Body Reading Room IUM, [id number] 04:25:00* Test Item Value Reference Range Comments CALCIUM IONIZED (BEAKER) (test ttdt=450) 1.20 mmol/L 1.12-1.27 PH, BLOOD (BEAKER) (test bthn=4023) 7.35 POCT-GLUCOSE [id number] 04:15:00* Test Item Value Reference Range Comments POC-GLUCOSE METER (BEAKER) (test rozb=4677) 181 mg/dL 70-110 TESTED AT [place] [id number] [facility] [address] POCT-GLUCOSE [id number] 03:16:00* Test Item Value Reference Range Comments POC-GLUCOSE METER (BEAKER) (test lbce=0260) 187 mg/dL 70-110 TESTED AT [address] [address] POCT-GLUCOSE [id number] 03:16:00* Test Item Value Reference Range Comments POC-GLUCOSE METER (BEAKER) (test ealj=1294) 151 mg/dL 70-110 TESTED AT [address] [address] POCT-GLUCOSE [id number] 01:16:00* Test Item Value Reference Range Comments POC-GLUCOSE METER (BEAKER) (test qgrg=0601) 187 mg/dL 70-110 TESTED AT [address] [address] TROPONIN [id number] 23:43:00* Test Item Value Reference Range Comments TROPONIN I (BEAKER) (test gvix=803) 4.13 ng/mL 0.00-0.03 Troponin I (TnI) levels must be interpreted [...] failure, acidosis, acute neurological disease, and persistent tachyarrhythmia.CREATINE KINASE (CK), TOTAL AND [id number] 23:33:00* Test Item Value Reference Range Comments CREATINE KINASE TOTAL (BEAKER) (test yase=364) 330 U/L 29-200 CREATINE KINASE-MB (BEAKER) (test aphu=554) 10.7 ng/mL 0.0-6.6 CREATINE KINASE-MB INDEX (BEAKER) (test gdoh=950) 3.2 % CK-MB Reference Range:<6.7 Normal6.7-10.0 Borderline>10.0 AbnormalLACTIC ACID, ARTERIAL, WHOLE [id number] 23:22:00* Test Item Value Reference Range Comments LACTATE BLOOD ARTERIAL (2) (BEAKER) (test bmog=9945) 1.7 mmol/L 0.5-2.2 Effective 11/18/2015: Units/Reference Range ChangeNew: 0.5-2.2 mmol/L Previous: 5 -20 mg/dLPOCT-GLUCOSE [id number] 22:20:00* Test Item Value Reference Range Comments POC-GLUCOSE METER (BEAKER) (test luut=5521) 194 mg/dL 70-110 TESTED AT [facility] [address] [facility] [address] POCT-GLUCOSE [id number] 22:16:00* Test Item Value Reference Range Comments POC-GLUCOSE METER (BEAKER) (test fqlm=4683) 200 mg/dL 70-110 TESTED AT [facility] [address] [facility] [address] BLOOD GAS, [id number] 21:16:00* Test Item Value Reference Range Comments PH ARTERIAL (BEAKER) (test msft=820) 7.34 7.35-7.45 PCO2 ARTERIAL (BEAKER) (test afdf=082) 38 mmHg 35-45 PO2 ARTERIAL (BEAKER) (test ojlx=531) 115 mmHg 80-90 O2 SATURATION ARTERIAL (BEAKER) (test uhph=823) 97.9 % 96.0-97.0 HCO3 ARTERIAL (BEAKER) (test biyx=351) 20 mmol/L 21-29 BASE EXCESS ARTERIAL (BEAKER) (test qiqt=058) -4.9 mmol/L -2.0-3.0 PATIENT TEMPERATURE (BEAKER) (test ythx=8888) 37.6 C FIO2 (BEAKER) (test pitc=5331) 40.0 % GLUCOSE-STAT [id number] 21:16:00* Test Item Value Reference Range Comments GLUCOSE RANDOM (BEAKER) (test okry=801) 199 mg/dL 70-110 HGB/HCT (H&H) - STAT [id number] 21:16:00* Test Item Value Reference Range Comments HEMOGLOBIN (BEAKER) (test ndpl=839) 10.1 g/dL 12.0-15.0 HEMATOCRIT (BEAKER) (test eotl=327) 30.0 % 36.0-45.0 SODIUM NA-STAT [id number] 21:15:00* Test Item Value Reference Range Comments SODIUM (BEAKER) (test fyhg=217) 135 meq/L 135-148 POTASSIUM-STAT [id number] 21:15:00* Test Item Value Reference Range Comments POTASSIUM (BEAKER) (test wput=721) 4.3 meq/L 3.6-5.5 CALCIUM, [id number] 21:14:00* Test Item Value Reference Range Comments CALCIUM IONIZED (BEAKER) (test ialt=125) 1.16 mmol/L 1.12-1.27 PH, BLOOD (BEAKER) (test okvs=2304) 7.35 [id number] 19:33:00* Test Item Value Reference Range Comments MAGNESIUM (BEAKER) (test kegk=140) 2.1 mg/dL 1.6-2.6 Check Serum Magnesium level 2 hours after IV magnesium replacement.CALCIUM, [id number] 19:04:00* Test Item Value Reference Range Comments CALCIUM IONIZED (BEAKER) (test vahc=956) 1.19 mmol/L 1.12-1.27 PH, BLOOD (BEAKER) (test vicy=6238) 7.32 SODIUM NA-STAT [id number] 19:04:00* Test Item Value Reference Range Comments SODIUM (BEAKER) (test ukcf=884) 136 meq/L 135-148 POTASSIUM-STAT [id number] 19:04:00* Test Item Value Reference Range Comments POTASSIUM (BEAKER) (test mead=976) 4.4 meq/L 3.6-5.5 BLOOD GAS, [id number] 19:04:00* Test Item Value Reference Range Comments PH ARTERIAL (BEAKER) (test mzfo=936) 7.32 7.35-7.45 PCO2 ARTERIAL (BEAKER) (test swhj=560) 38 mmHg 35-45 PO2 ARTERIAL (BEAKER) (test gryb=508) 190 mmHg 80-90 O2 SATURATION ARTERIAL (BEAKER) (test bvtp=614) 99.2 % 96.0-97.0 HCO3 ARTERIAL (BEAKER) (test rsgq=451) 19 mmol/L 21-29 BASE EXCESS ARTERIAL (BEAKER) (test fuhm=338) -6.3 mmol/L -2.0-3.0 PATIENT TEMPERATURE (BEAKER) (test brxt=9810) 36.8 C FIO2 (BEAKER) (test maps=1666) 60.0 % GLUCOSE-STAT [id number] 19:04:00* Test Item Value Reference Range Comments GLUCOSE RANDOM (BEAKER) (test pfmb=491) 226 mg/dL 70-110 HGB/HCT (H&H) - STAT [id number] 19:04:00* Test Item Value Reference Range Comments HEMOGLOBIN (BEAKER) (test sfii=097) 10.8 g/dL 12.0-15.0 HEMATOCRIT (BEAKER) (test rcxe=669) 32.0 % 36.0-45.0 THROMBOELASTOGRAPH (TEG)2017-06-16 17:49:00* Test Item Value Reference Range Comments TEG ACTIVATED CLOTTING TIME (BEAKER) (test jbhf=0768) 5.8 minutes 4.0-7.0 TEG FIBRINOGEN ACTIVITY (BEAKER) (test wyhy=9503) 68.7 degrees 61.0-73.0 [address]T. AGGREGATION (BEAKER) (test vqzi=9500) 63.8 MM 55.0-65.0 TEG FIBRINOLYSIS (BEAKER) (test lijo=1720) 0.0 % 0.0-5.0 TGH ACTIVATED CLOTTING TIME (BEAKER) (test zldw=5099) 5.4 minutes 4.0-7.0 TGH FIBRINOGEN ACTIVITY (BEAKER) (test onmt=5430) 70.6 degrees 61.0-73.0 TGH PLT. AGGREGATION (BEAKER) (test yjpv=1271) 60.2 MM 55.0-65.0 TGH FIBRINOLYSIS (BEAKER) (test mscv=1102) 0.0 % 0.0-5.0 TROPONIN [id number] 17:27:00* Test Item Value Reference Range Comments TROPONIN I (BEAKER) (test jbrm=063) 2.20 ng/mL 0.00-0.03 Troponin I (TnI) levels must be interpreted [...] failure, acidosis, acute neurological disease, and persistent tachyarrhythmia.BASIC METABOLIC [id number] 17:24:00 * Test Item Value Reference Range Comments SODIUM (BEAKER) (test verg=231) 141 meq/L 136-145 POTASSIUM (BEAKER) (test mcvl=213) 4.7 meq/L 3.5-5.1 CHLORIDE (BEAKER) (test lodx=621) 114 meq/L 98-107 CO2 (BEAKER) (test gyjk=231) 20 meq/L 22-29 BLOOD UREA NITROGEN (BEAKER) (test snmz=399) 21 mg/dL 7-21 CREATININE (BEAKER) (test dwhw=430) 1.59 mg/dL 0.57-1.25 GLUCOSE RANDOM (BEAKER) (test dlcc=066) 243 mg/dL 70-105 CALCIUM (BEAKER) (test eqwz=407) 7.2 mg/dL 8.4-10.2 EGFR (BEAKER) (test rsjz=7692) 33 mL/min/1.73 sq m ESTIMATED GFR IS NOT ACCURATE CREATININE CLEARANCE IN PREDICTING GLOMERULAR FILTRATION RATE. ESTIMATED GFR IS NOT APPLICABLE FOR DIALYSIS PATIENTS. CREATINE KINASE (CK), TOTAL AND [id number] 17:15:00* Test Item Value Reference Range Comments CREATINE KINASE TOTAL (BEAKER) (test nfmc=222) 363 U/L 29-200 CREATINE KINASE-MB (BEAKER) (test etiq=628) 13.9 ng/mL 0.0-6.6 CREATINE KINASE-MB INDEX (BEAKER) (test qtup=916) 3.8 % CK-MB Reference Range:<6.7 Normal6.7-10.0 Borderline>10.0 [id number] 17:13:00* Test Item Value Reference Range Comments POTASSIUM (BEAKER) (test szes=317) 4.7 meq/L 3.5-5.1 [id number] 17:13:00* Test Item Value Reference Range Comments MAGNESIUM (BEAKER) (test ihqn=796) 1.6 mg/dL 1.6-2.6 [id number] 17:13:00* Test Item Value Reference Range Comments PHOSPHORUS (BEAKER) (test lcnm=207) 3.6 mg/dL 2.3-4.7 [id number] 17:13:00* Test Item Value Reference Range Comments GLUCOSE RANDOM (BEAKER) (test brsb=486) 243 mg/dL 70-105 LACTIC ACID, ARTERIAL, WHOLE [id number] 17:07:00* Test Item Value Reference Range Comments LACTATE BLOOD ARTERIAL (2) (BEAKER) (test myui=8423) 2.0 mmol/L 0.5-2.2 Effective 11/18/2015: Units/Reference Range ChangeNew: 0.5-2.2 mmol/L Previous: 5 -20 mg/[id number] 16:46:00* Test Item Value Reference Range Comments FIBRINOGEN LEVEL (BEAKER) (test cimi=987) 208 mg/dl 225-434 [id number] 16:46:00* Test Item Value Reference Range Comments PARTIAL THROMBOPLASTIN TIME (BEAKER) (test juqq=623) 43.4 seconds 22.5-36.0 PROTHROMBIN TIME/[id number] 16:45:00* Test Item Value Reference Range Comments PROTIME (BEAKER) (test xrau=270) 17.3 seconds 11.7-14.7 INR (BEAKER) (test ncnr=598) 1.4 <=5.9 RECOMMENDED COUMADIN/WARFARIN INR THERAPY RANGESSTANDARD DOSE: 2.0 - 3.0 Includes: PROPHYLAXIS for venous thrombosis, systemic embolization; TREATMENT for venous thrombosis and/or pulmonary embolus.HIGH RISK: Target INR is 2.5-3.5 for patients with mechanical heart valves.CBC W/PLT COUNT & AUTO [id number] 16:39:00* Test Item Value Reference Range Comments WHITE BLOOD CELL COUNT (BEAKER) (test qznj=940) 18.4 K/ L 3.5-10.5 RED BLOOD CELL COUNT (BEAKER) (test usps=204) 3.28 M/ L 3.93-5.22 HEMOGLOBIN (BEAKER) (test tdeb=712) 9.4 GM/DL 11.2-15.7 HEMATOCRIT (BEAKER) (test epss=448) 29.5 % 34.1-44.9 MEAN CORPUSCULAR VOLUME (BEAKER) (test qsdd=922) 89.9 fL 79.4-94.8 MEAN CORPUSCULAR HEMOGLOBIN (BEAKER) (test smhx=894) 28.7 pg 25.6-32.2 MEAN CORPUSCULAR HEMOGLOBIN CONC (BEAKER) (test iyau=468) 31.9 GM/DL 32.2- 35.5 RED CELL DISTRIBUTION WIDTH (BEAKER) (test oyei=751) 13.7 % 11.7-14.4 PLATELET COUNT (BEAKER) (test zuba=878) 136 K/CU MM 150-450 MEAN PLATELET VOLUME (BEAKER) (test sxjf=208) 11.9 fL 9.4-12.3 NUCLEATED RED BLOOD CELLS (BEAKER) (test ymbk=491) 0 /100 WBC 0-0 NEUTROPHILS RELATIVE PERCENT (BEAKER) (test lfti=243) 73 % LYMPHOCYTES RELATIVE PERCENT (BEAKER) (test bqiv=113) 17 % MONOCYTES RELATIVE PERCENT (BEAKER) (test hpen=969) 6 % EOSINOPHILS RELATIVE PERCENT (BEAKER) (test fvbr=441) 3 % BASOPHILS RELATIVE PERCENT (BEAKER) (test dnpg=653) 1 % NEUTROPHILS ABSOLUTE COUNT (BEAKER) (test pick=644) 13.38 K/ L 1.56-6.13 LYMPHOCYTES ABSOLUTE COUNT (BEAKER) (test hoiv=428) 3.21 K/ L 1.18-3.74 MONOCYTES ABSOLUTE COUNT (BEAKER) (test thxs=108) 1.16 K/ L 0.24-0.36 EOSINOPHILS ABSOLUTE COUNT (BEAKER) (test loui=851) 0.46 K/ L 0.04-0.36 BASOPHILS ABSOLUTE COUNT (BEAKER) (test kmbx=920) 0.12 K/ L 0.01-0.08 IMMATURE GRANULOCYTES-RELATIVE PERCENT (BEAKER) (test zdjx=6163) 1 % 0-1 RAD, CHEST, 1 VIEW, NON [id number] 16:19:00Reason for exam:->HypoxiaShould this be performed at the bedside?->YesFINAL REPORT TECHNIQUE: Frontal chest radiograph dated 06/16/2017. CLINICAL HISTORY: Hypoxia COMPARISON STUDY: Chest radiograph dated 06/12/2017 IMPRESSION:Endotracheal tube is 3.4 cm above the rasheed. Enteric tube is seen with its tip in the region of the gastric fundus. Left-sided chest tube and mediastinal drain are in place. Right internal jugular venous catheter tip projects over the region of the superior vena cava. Vague airspace opacities in the upper lobes is likely secondary to pulmonary vascular congestion and atelectasis. Infection is less likely. Cardiomediastinal silhouette is normal in size. Midline sternotomy wires are intact and well aligned. Degenerative changes are seen in the spine. Signed: Reji Loweryeport Verified Date/Time: 06/16/2017 16:19:10 Reading Location: [facility] Radiology Reading Room IUM, [id number] 16:11 :00* Test Item Value Reference Range Comments CALCIUM IONIZED (BEAKER) (test vdol=937) 1.03 mmol/L 1.12-1.27 PH, BLOOD (BEAKER) (test hufs=5501) 7.40 BLOOD GAS, [id number] 16:11:00* Test Item Value Reference Range Comments PH ARTERIAL (BEAKER) (test okll=724) 7.42 7.35-7.45 PCO2 ARTERIAL (BEAKER) (test bpka=426) 31 mmHg 35-45 PO2 ARTERIAL (BEAKER) (test dxzt=419) 108 mmHg 80-90 O2 SATURATION ARTERIAL (BEAKER) (test bjib=773) 98.2 % 96.0-97.0 HCO3 ARTERIAL (BEAKER) (test otpp=854) 20 mmol/L 21-29 BASE EXCESS ARTERIAL (BEAKER) (test jsuy=367) -4.5 mmol/L -2.0-3.0 PATIENT TEMPERATURE (BEAKER) (test qjvi=9983) 35.7 C FIO2 (BEAKER) (test tcyk=0815) 60.0 % GLUCOSE-STAT [id number] 16:11:00* Test Item Value Reference Range Comments GLUCOSE RANDOM (BEAKER) (test lfsd=110) 235 mg/dL 70-110 HGB/HCT (H&H) - STAT [id number] 16:11:00* Test Item Value Reference Range Comments HEMOGLOBIN (BEAKER) (test fkrk=002) 9.9 g/dL 12.0-15.0 HEMATOCRIT (BEAKER) (test icsf=577) 29.0 % 36.0-45.0 SODIUM NA-STAT [id number] 16:10:00* Test Item Value Reference Range Comments SODIUM (BEAKER) (test mkog=286) 135 meq/L 135-148 POTASSIUM-STAT [id number] 16:10:00* Test Item Value Reference Range Comments POTASSIUM (BEAKER) (test uugf=954) 4.5 meq/L 3.6-5.5 OXYGEN SATURATION, [id number] 16:09:00* Test Item Value Reference Range Comments O2 SATURATION (MEASURED) (BEAKER) (test eudu=2624) 52.9 % BLOOD GAS, [id number] 14:56:00* Test Item Value Reference Range Comments PH ARTERIAL (BEAKER) (test udiz=477) 7.34 7.35-7.45 PCO2 ARTERIAL (BEAKER) (test vppd=903) 42 mmHg 35-45 PO2 ARTERIAL (BEAKER) (test psvt=036) 77 mmHg 80-90 O2 SATURATION ARTERIAL (BEAKER) (test ocsc=024) 95.4 % 96.0-97.0 HCO3 ARTERIAL (BEAKER) (test yvzq=157) 23 mmol/L 21-29 BASE EXCESS ARTERIAL (BEAKER) (test mzgu=487) -3.2 mmol/L -2.0-3.0 PATIENT TEMPERATURE (BEAKER) (test jtsn=2740) 36.0 C FIO2 (BEAKER) (test wopq=7376) 100.0 % GLUCOSE-STAT [id number] 14:56:00* Test Item Value Reference Range Comments GLUCOSE RANDOM (BEAKER) (test rcyo=830) 190 mg/dL 70-110 HGB/HCT (H&H) - STAT [id number] 14:56:00* Test Item Value Reference Range Comments HEMOGLOBIN (BEAKER) (test naew=764) 9.3 g/dL 12.0-15.0 HEMATOCRIT (BEAKER) (test syvu=188) 27.0 % 36.0-45.0 SODIUM NA-STAT [id number] 14:55:00* Test Item Value Reference Range Comments SODIUM (BEAKER) (test nlkz=046) 135 meq/L 135-148 POTASSIUM-STAT [id number] 14:55:00* Test Item Value Reference Range Comments POTASSIUM (BEAKER) (test kvpf=364) 4.4 meq/L 3.6-5.5 [id number] 14:22:00* Test Item Value Reference Range Comments ACTIVATED CLOTTING TIME (BEAKER) (test uycy=766) 775 sec TESTED AT [place] [id number] 14:22:00* Test Item Value Reference Range Comments ACTIVATED CLOTTING TIME (BEAKER) (test rqeg=212) 290 sec TESTED AT [place] [id number] [id number] 14:22:00* Test Item Value Reference Range Comments ACTIVATED CLOTTING TIME (BEAKER) (test kftx=570) 307 sec TESTED AT [place] [id number] [id number] 14:22:00* Test Item Value Reference Range Comments ACTIVATED CLOTTING TIME (BEAKER) (test fasc=820) 461 sec TESTED AT [place] [address] [id number] 14:22:00* Test Item Value Reference Range Comments ACTIVATED CLOTTING TIME (BEAKER) (test kpez=858) 356 sec TESTED AT [place] [address] [id number] 14:22:00* Test Item Value Reference Range Comments ACTIVATED CLOTTING TIME (BEAKER) (test zreb=183) 367 sec TESTED AT [place] [address] [id number] 14:22:00* Test Item Value Reference Range Comments ACTIVATED CLOTTING TIME (BEAKER) (test lgql=991) 472 sec TESTED AT [place] [address] [id number] 14:22:00* Test Item Value Reference Range Comments ACTIVATED CLOTTING TIME (BEAKER) (test tffa=333) 401 sec TESTED AT [place] [address] [id number] 14:22:00* Test Item Value Reference Range Comments ACTIVATED CLOTTING TIME (BEAKER) (test bdwr=049) 384 sec TESTED AT [place] [address] SODIUM NA-STAT [id number] 14:15:00* Test Item Value Reference Range Comments SODIUM (BEAKER) (test movh=823) 135 meq/L 135-148 POTASSIUM-STAT [id number] 14:15:00* Test Item Value Reference Range Comments POTASSIUM (BEAKER) (test hbif=923) 4.1 meq/L 3.6-5.5 BLOOD GAS, [id number] 14:15:00* Test Item Value Reference Range Comments PH ARTERIAL (BEAKER) (test tzod=899) 7.30 7.35-7.45 PCO2 ARTERIAL (BEAKER) (test iabj=331) 41 mmHg 35-45 PO2 ARTERIAL (BEAKER) (test kwtd=409) 95 mmHg 80-90 O2 SATURATION ARTERIAL (BEAKER) (test wjns=040) 97.4 % 96.0-97.0 HCO3 ARTERIAL (BEAKER) (test bfpl=092) 21 mmol/L 21-29 BASE EXCESS ARTERIAL (BEAKER) (test ozqv=877) -6.2 mmol/L -2.0-3.0 PATIENT TEMPERATURE (BEAKER) (test vlgu=8943) 34.0 C FIO2 (BEAKER) (test udub=3689) 100.0 % GLUCOSE-STAT [id number] 14:15:00* Test Item Value Reference Range Comments GLUCOSE RANDOM (BEAKER) (test fbml=692) 177 mg/dL 70-110 HGB/HCT (H&H) - STAT [id number] 14:15:00* Test Item Value Reference Range Comments HEMOGLOBIN (BEAKER) (test vlkp=552) 9.0 g/dL 12.0-15.0 HEMATOCRIT (BEAKER) (test xnqi=178) 26.0 % 36.0-45.0 SODIUM NA-STAT [id number] 13:44:00* Test Item Value Reference Range Comments SODIUM (BEAKER) (test xmmh=828) 136 meq/L 135-148 POTASSIUM-STAT [id number] 13:44:00* Test Item Value Reference Range Comments POTASSIUM (BEAKER) (test jjbc=376) 3.9 meq/L 3.6-5.5 BLOOD GAS, [id number] 13:44:00* Test Item Value Reference Range Comments PH ARTERIAL (BEAKER) (test wice=440) 7.28 7.35-7.45 PCO2 ARTERIAL (BEAKER) (test hiub=275) 42 mmHg 35-45 PO2 ARTERIAL (BEAKER) (test ukhi=348) 354 mmHg 80-90 O2 SATURATION ARTERIAL (BEAKER) (test cwqr=327) 99.7 % 96.0-97.0 HCO3 ARTERIAL (BEAKER) (test bjch=696) 20 mmol/L 21-29 BASE EXCESS ARTERIAL (BEAKER) (test lvsr=760) -7.1 mmol/L -2.0-3.0 PATIENT TEMPERATURE (BEAKER) (test gtve=8737) 34.0 C FIO2 (BEAKER) (test bzgf=8094) 100.0 % GLUCOSE-STAT [id number] 13:44:00* Test Item Value Reference Range Comments GLUCOSE RANDOM (BEAKER) (test gqnh=621) 194 mg/dL 70-110 HGB/HCT (H&H) - STAT [id number] 13:44:00* Test Item Value Reference Range Comments HEMOGLOBIN (BEAKER) (test omme=719) 8.8 g/dL 12.0-15.0 HEMATOCRIT (BEAKER) (test abud=288) 26.0 % 36.0-45.0 CALCIUM, [id number] 13:44:00* Test Item Value Reference Range Comments CALCIUM IONIZED (BEAKER) (test gwcq=692) 1.08 mmol/L 1.12-1.27 PH, BLOOD (BEAKER) (test xmgh=3370) 7.24 BLOOD GAS, [id number] 12:33:00* Test Item Value Reference Range Comments PH ARTERIAL (BEAKER) (test nuzh=094) 7.33 7.35-7.45 PCO2 ARTERIAL (BEAKER) (test xksd=426) 40 mmHg 35-45 PO2 ARTERIAL (BEAKER) (test xzlz=780) 238 mmHg 80-90 O2 SATURATION ARTERIAL (BEAKER) (test mlbg=453) 99.5 % 96.0-97.0 HCO3 ARTERIAL (BEAKER) (test zclg=280) 21 mmol/L 21-29 BASE EXCESS ARTERIAL (BEAKER) (test dfnp=806) -5.0 mmol/L -2.0-3.0 PATIENT TEMPERATURE (BEAKER) (test krpu=7333) 34.2 C FIO2 (BEAKER) (test ypaf=7208) 100.0 % GLUCOSE-STAT [id number] 12:33:00* Test Item Value Reference Range Comments GLUCOSE RANDOM (BEAKER) (test spcs=546) 198 mg/dL 70-110 HGB/HCT (H&H) - STAT [id number] 12:33:00* Test Item Value Reference Range Comments HEMOGLOBIN (BEAKER) (test nyrf=650) 8.9 g/dL 12.0-15.0 HEMATOCRIT (BEAKER) (test bhue=682) 26.0 % 36.0-45.0 CALCIUM, [id number] 12:33:00* Test Item Value Reference Range Comments CALCIUM IONIZED (BEAKER) (test gvym=887) 0.99 mmol/L 1.12-1.27 PH, BLOOD (BEAKER) (test kojd=0600) 7.33 SODIUM NA-STAT [id number] 12:31:00* Test Item Value Reference Range Comments SODIUM (BEAKER) (test qhop=265) 135 meq/L 135-148 POTASSIUM-STAT [id number] 12:31:00* Test Item Value Reference Range Comments POTASSIUM (BEAKER) (test iyfl=826) 3.8 meq/L 3.6-5.5 URINE [id number] 12:10:00* Test Item Value Reference Range Comments CULTURE (BEAKER) (test qakn=0803) Amikacin (test code=1) Ampicillin + Sulbactam (test code=6) Aztreonam (test code=32) Cefepime (test code=51) Cefoxitin (test code=68) Ceftazidime (test code=27) Ceftriaxone (test code=52) Ertapenem (test code=38) Gentamicin (test code=18) Levofloxacin (test code=22) Meropenem (test code=34) Nitrofurantoin (test code=23) Piperacillin + Tazobactam (test code=29) Tetracycline (test code=2) Tobramycin (test code=25) Trimethoprim + Sulfamethoxazole (test code=47) CULTURE (BEAKER) (test zwon=5752) >100,000 col/mL Escherichia coli BLOOD GAS, [id number] 08:52:00* Test Item Value Reference Range Comments PH ARTERIAL (BEAKER) (test ovrm=406) 7.46 7.35-7.45 PCO2 ARTERIAL (BEAKER) (test jabx=516) 30 mmHg 35-45 PO2 ARTERIAL (BEAKER) (test bojc=107) 267 mmHg 80-90 O2 SATURATION ARTERIAL (BEAKER) (test ksph=823) 99.7 % 96.0-97.0 HCO3 ARTERIAL (BEAKER) (test bxqu=828) 21 mmol/L 21-29 BASE EXCESS ARTERIAL (BEAKER) (test rajg=425) -2.2 mmol/L -2.0-3.0 PATIENT TEMPERATURE (BEAKER) (test sxkc=6189) 36.0 C FIO2 (BEAKER) (test ipym=3094) 100.0 % GLUCOSE-STAT [id number] 08:52:00* Test Item Value Reference Range Comments GLUCOSE RANDOM (BEAKER) (test itsf=298) 162 mg/dL 70-110 POTASSIUM-STAT [id number] 08:52:00* Test Item Value Reference Range Comments POTASSIUM (BEAKER) (test ioal=814) 3.4 meq/L 3.6-5.5 HGB/HCT (H&H) - STAT [id number] 08:52:00* Test Item Value Reference Range Comments HEMOGLOBIN (BEAKER) (test lowc=832) 11.1 g/dL 12.0-15.0 HEMATOCRIT (BEAKER) (test swse=623) 33.0 % 36.0-45.0 SODIUM NA-STAT [id number] 08:51:00* Test Item Value Reference Range Comments SODIUM (BEAKER) (test ndvd=540) 138 meq/L 135-148 COMPLEMENT COMPONENT [id number] 05:17:00* Test Item Value Reference Range Comments C4 COMPLEMENT (BEAKER) (test sepd=662) 31 mg/dL 15-57 COMPLEMENT COMPONENT [id number] 05:17:00* Test Item Value Reference Range Comments C3 COMPLEMENT (BEAKER) (test eive=907) 139 mg/dL 82-193 BASIC METABOLIC [id number] 04:01:00* Test Item Value Reference Range Comments SODIUM (BEAKER) (test hvmt=764) 141 meq/L 136-145 POTASSIUM (BEAKER) (test wlsm=861) 4.0 meq/L 3.5-5.1 CHLORIDE (BEAKER) (test swzw=229) 109 meq/L 98-107 CO2 (BEAKER) (test gkix=401) 22 meq/L 22-29 BLOOD UREA NITROGEN (BEAKER) (test gjmw=908) 27 mg/dL 7-21 CREATININE (BEAKER) (test wcyu=631) 1.95 mg/dL 0.57-1.25 GLUCOSE RANDOM (BEAKER) (test kxfk=441) 151 mg/dL 70-105 CALCIUM (BEAKER) (test pivc=063) 9.1 mg/dL 8.4-10.2 EGFR (BEAKER) (test fdls=8957) 26 mL/min/1.73 sq m ESTIMATED GFR IS NOT ACCURATE CREATININE CLEARANCE IN PREDICTING GLOMERULAR FILTRATION RATE. ESTIMATED GFR IS NOT APPLICABLE FOR DIALYSIS PATIENTS. CALCIUM, [id number] 03:59:00* Test Item Value Reference Range Comments CALCIUM IONIZED (BEAKER) (test mubl=565) 1.11 mmol/L 1.12-1.27 PH, BLOOD (BEAKER) (test rots=0910) 7.38 [id number] 03:57:00* Test Item Value Reference Range Comments PHOSPHORUS (BEAKER) (test eris=588) 4.7 mg/dL 2.3-4.7 [id number] 03:57:00* Test Item Value Reference Range Comments MAGNESIUM (BEAKER) (test cexc=783) 1.9 mg/dL 1.6-2.6 CBC W/PLT COUNT & AUTO [id number] 03:40:00* Test Item Value Reference Range Comments WHITE BLOOD CELL COUNT (BEAKER) (test klcr=985) 11.7 K/ L 3.5-10.5 RED BLOOD CELL COUNT (BEAKER) (test gksu=222) 3.96 M/ L 3.93-5.22 HEMOGLOBIN (BEAKER) (test nqav=387) 11.3 GM/DL 11.2-15.7 HEMATOCRIT (BEAKER) (test gbsn=048) 35.1 % 34.1-44.9 MEAN CORPUSCULAR VOLUME (BEAKER) (test mkkm=054) 88.6 fL 79.4-94.8 MEAN CORPUSCULAR HEMOGLOBIN (BEAKER) (test dcmz=497) 28.5 pg 25.6-32.2 MEAN CORPUSCULAR HEMOGLOBIN CONC (BEAKER) (test xrir=414) 32.2 GM/DL 32.2- 35.5 RED CELL DISTRIBUTION WIDTH (BEAKER) (test rzay=043) 13.6 % 11.7-14.4 PLATELET COUNT (BEAKER) (test oega=110) 173 K/CU MM 150-450 MEAN PLATELET VOLUME (BEAKER) (test qurt=230) 11.2 fL 9.4-12.3 NUCLEATED RED BLOOD CELLS (BEAKER) (test tnns=947) 0 /100 WBC 0-0 NEUTROPHILS RELATIVE PERCENT (BEAKER) (test ageu=083) 59 % LYMPHOCYTES RELATIVE PERCENT (BEAKER) (test dksf=219) 26 % MONOCYTES RELATIVE PERCENT (BEAKER) (test qdiy=876) 7 % EOSINOPHILS RELATIVE PERCENT (BEAKER) (test ziqh=829) 6 % BASOPHILS RELATIVE PERCENT (BEAKER) (test ydrm=051) 1 % NEUTROPHILS ABSOLUTE COUNT (BEAKER) (test kvby=392) 6.96 K/ L 1.56-6.13 LYMPHOCYTES ABSOLUTE COUNT (BEAKER) (test pgga=572) 3.10 K/ L 1.18-3.74 MONOCYTES ABSOLUTE COUNT (BEAKER) (test rhyb=674) 0.77 K/ L 0.24-0.36 EOSINOPHILS ABSOLUTE COUNT (BEAKER) (test tdtb=832) 0.74 K/ L 0.04-0.36 BASOPHILS ABSOLUTE COUNT (BEAKER) (test ntnr=494) 0.13 K/ L 0.01-0.08 IMMATURE GRANULOCYTES-RELATIVE PERCENT (BEAKER) (test igdt=6744) 0 % 0-1 CT, BRAIN, WITHOUT [id number] 03:08:00FINAL REPORT CT, BRAIN, WITHOUT CONTRAST INDICATION: Neuro [...] eddy radiata no acute infarct or parenchymal hemorrhage.Midline structures: Normally positioned.Cerebellum and brainstem: Commensurate volume loss.Ventricles: Normal volume.Extra-axial spaces: Unremarkable. Calvarium and skull base: Intact.Paranasal sinuses and mastoid air cells: Trace left mastoid effusion.Orbital contents: Included portions unremarkable. Additional findings: None. IMPRESSION: No acute intracranial abnormality. Chronic deep white matter changes for which additional characterization with MR may be obtained as clinically warranted. Signed: JR Bates Robert MDReport Verified Date/ Time: 06/16/2017 03:08:10 Reading Location: [facility] B1 C013Y CT Body Reading Room - GLUCOSE [id number] 19:05:00* Test Item Value Reference Range Comments POC-GLUCOSE METER (BEAKER) (test rgli=8110) 154 mg/dL 70-110 [address]ED AT [address] [address] POCT-GLUCOSE [id number] 12:01:00* Test Item Value Reference Range Comments POC-GLUCOSE METER (BEAKER) (test wnee=7626) 165 mg/dL 70-110 TESTED AT [address] [address] POCT-GLUCOSE [id number] 08:48:00* Test Item Value Reference Range Comments POC-GLUCOSE METER (BEAKER) (test txhr=5978) 172 mg/dL 70-110 TESTED AT [address] [address] CALCIUM, [id number] 07:24:00* Test Item Value Reference Range Comments CALCIUM IONIZED (BEAKER) (test myzc=578) 1.08 mmol/L 1.12-1.27 PH, BLOOD (BEAKER) (test sfuu=2261) 7.40 BASIC METABOLIC [id number] 06:44:00* Test Item Value Reference Range Comments SODIUM (BEAKER) (test gkxl=874) 141 meq/L 136-145 POTASSIUM (BEAKER) (test ruxw=945) 3.9 meq/L 3.5-5.1 CHLORIDE (BEAKER) (test mksj=949) 110 meq/L 98-107 CO2 (BEAKER) (test ndtu=331) 23 meq/L 22-29 BLOOD UREA NITROGEN (BEAKER) (test nnjd=552) 29 mg/dL 7-21 CREATININE (BEAKER) (test avjf=059) 1.77 mg/dL 0.57-1.25 GLUCOSE RANDOM (BEAKER) (test tmsb=542) 131 mg/dL 70-105 CALCIUM (BEAKER) (test dqop=439) 8.9 mg/dL 8.4-10.2 EGFR (BEAKER) (test livt=9906) 29 mL/min/1.73 sq m ESTIMATED GFR IS NOT ACCURATE CREATININE CLEARANCE IN PREDICTING GLOMERULAR FILTRATION RATE. ESTIMATED GFR IS NOT APPLICABLE FOR DIALYSIS PATIENTS. [id number] 06:36:00* Test Item Value Reference Range Comments PHOSPHORUS (BEAKER) (test svzl=074) 3.9 mg/dL 2.3-4.7 [id number] 06:36:00* Test Item Value Reference Range Comments MAGNESIUM (BEAKER) (test udqo=253) 1.9 mg/dL 1.6-2.6 PROTHROMBIN [id number] 05:49:00* Test Item Value Reference Range Comments PROTIME (BEAKER) (test zomk=415) 14.2 seconds 11.7-14.7 INR (BEAKER) (test nswq=560) 1.1 <=5.9 RECOMMENDED COUMADIN/WARFARIN INR THERAPY RANGESSTANDARD DOSE: 2.0 - 3.0 Includes: PROPHYLAXIS for venous thrombosis, systemic embolization; TREATMENT for venous thrombosis and/or pulmonary embolus.HIGH RISK: Target INR is 2.5-3.5 for patients with mechanical heart valves.CBC W/PLT COUNT & AUTO [id number] 05:32:00* Test Item Value Reference Range Comments WHITE BLOOD CELL COUNT (BEAKER) (test sxan=082) 9.6 K/ L 3.5-10.5 RED BLOOD CELL COUNT (BEAKER) (test rfcz=949) 3.87 M/ L 3.93-5.22 HEMOGLOBIN (BEAKER) (test onad=865) 11.0 GM/DL 11.2-15.7 HEMATOCRIT (BEAKER) (test fjfj=889) 34.2 % 34.1-44.9 MEAN CORPUSCULAR VOLUME (BEAKER) (test imcr=378) 88.4 fL 79.4-94.8 MEAN CORPUSCULAR HEMOGLOBIN (BEAKER) (test ntzj=274) 28.4 pg 25.6-32.2 MEAN CORPUSCULAR HEMOGLOBIN CONC (BEAKER) (test ltiv=959) 32.2 GM/DL 32.2- 35.5 RED CELL DISTRIBUTION WIDTH (BEAKER) (test qkdt=824) 13.8 % 11.7-14.4 PLATELET COUNT (BEAKER) (test jhqe=520) 149 K/CU MM 150-450 MEAN PLATELET VOLUME (BEAKER) (test zfqa=477) 11.3 fL 9.4-12.3 NUCLEATED RED BLOOD CELLS (BEAKER) (test agxc=682) 0 /100 WBC 0-0 NEUTROPHILS RELATIVE PERCENT (BEAKER) (test fkbk=061) 53 % LYMPHOCYTES RELATIVE PERCENT (BEAKER) (test tvpf=416) 31 % MONOCYTES RELATIVE PERCENT (BEAKER) (test nlwj=139) 8 % EOSINOPHILS RELATIVE PERCENT (BEAKER) (test jgwv=452) 7 % BASOPHILS RELATIVE PERCENT (BEAKER) (test lwsr=930) 1 % NEUTROPHILS ABSOLUTE COUNT (BEAKER) (test gxgl=191) 5.06 K/ L 1.56-6.13 LYMPHOCYTES ABSOLUTE COUNT (BEAKER) (test cawy=180) 3.00 K/ L 1.18-3.74 MONOCYTES ABSOLUTE COUNT (BEAKER) (test gzzb=804) 0.72 K/ L 0.24-0.36 EOSINOPHILS ABSOLUTE COUNT (BEAKER) (test fyqv=714) 0.71 K/ L 0.04-0.36 BASOPHILS ABSOLUTE COUNT (BEAKER) (test pbzp=716) 0.12 K/ L 0.01-0.08 IMMATURE GRANULOCYTES-RELATIVE PERCENT (BEAKER) (test hprf=8191) 0 % 0-1 CT, [id number] 00:33:00FINAL REPORT CT, ABDOMEN \T \ PELVIS, WITHOUT IV CONTRAST INDICATION: aortic abnormality; calcium within vessel COMPARISON: None TECHNIQUE: CT of the abdomen and pelvis WITHOUT intravenous contrast. DOSE REDUCTION: Dose modulation, iterative reconstruction , and/or weight-based adjustment of the mA/kV was utilized to reduce the radiation dose to as low as reasonably achievable. FINDINGS:NOTE: Absence of intravenous contrast decreases sensitivity for focal lesions and vascular pathology. Lower thorax: Unremarkable Liver: No parenchymal abnormality.Gallbladder and biliary tree: No ductal dilation following cholecystectomy.Pancreas: No acute findings.Spleen: Prominent splenic size measuring 13 cm increasing in caudal dimension.Adrenal Glands: No acute findings.Kidneys and ureters: No hydronephrosis or nephrolithiasis.Bladder and reproductive organs: Unremarkable. Stomach and Duodenum: Small sliding hiatal hernia.Small and large intestine: Normal calibers.Appendix: Normal. Major vascular structures: Aortic caliber is grossly normal throughout its course with abdominal course. Peripheral calcifications are present with extension into all major arterial branches.Peritoneum and retroperitoneum: No free air, fluid or adenopathy. Skeleton: No acute bony abnormality.Additional findings : None. IMPRESSION: Limited noncontrast evaluation. Tortuous abdominal aorta without aneurysmal dilation calcific atherosclerosis noted throughout the abdominal and visible portions of the pelvic compartments with extension into all major arterial branches. Signed: JR Bates Robert MDReport Verified Date/Time: 06/15/2017 00:33:14 Reading Location: [address] Body Reading Room -GLUCOSE [id number] 21:28:00* Test Item Value Reference Range Comments POC-GLUCOSE METER (BEAKER) (test hiyr=5331) 184 mg/dL 70-110 [address]ED AT [address] [address] POCT-GLUCOSE [id number] 18:31:00* Test Item Value Reference Range Comments POC-GLUCOSE METER (BEAKER) (test znyh=6842) 140 mg/dL 70-110 TESTED AT [address] [address] POCT-GLUCOSE [id number] 11:53:00* Test Item Value Reference Range Comments POC-GLUCOSE METER (BEAKER) (test eich=4295) 194 mg/dL 70-110 TESTED AT [address] [address] CALCIUM, [id number] 08:44:00* Test Item Value Reference Range Comments CALCIUM IONIZED (BEAKER) (test nllw=252) 1.11 mmol/L 1.12-1.27 PH, BLOOD (BEAKER) (test gyap=7616) 7.35 [id number] 07:44:00* Test Item Value Reference Range Comments FERRITIN (BEAKER) (test dzdu=844) 224 ng/mL 5-275 PROTHROMBIN TIME/[id number] 07:39:00* Test Item Value Reference Range Comments PROTIME (BEAKER) (test xrzt=653) 13.8 seconds 11.7-14.7 INR (BEAKER) (test fgme=401) 1.1 <=5.9 RECOMMENDED COUMADIN/WARFARIN INR THERAPY RANGESSTANDARD DOSE: 2.0 - 3.0 Includes: PROPHYLAXIS for venous thrombosis, systemic embolization; TREATMENT for venous thrombosis and/or pulmonary embolus.HIGH RISK: Target INR is 2.5-3.5 for patients with mechanical heart valves.B-TYPE NATRIURETIC FACTOR (BNP)2017-05 07:27:00* Test Item Value Reference Range Comments B-TYPE NATRIURETIC PEPTIDE (BEAKER) (test gmdn=583) 216 pg/mL 0-100 [id number] 07:26:00* Test Item Value Reference Range Comments PHOSPHORUS (BEAKER) (test jokn=040) 4.2 mg/dL 2.3-4.7 [id number] 07:26:00* Test Item Value Reference Range Comments MAGNESIUM (BEAKER) (test fwkm=266) 2.2 mg/dL 1.6-2.6 BASIC METABOLIC [id number] 07:24:00* Test Item Value Reference Range Comments SODIUM (BEAKER) (test xohq=062) 141 meq/L 136-145 POTASSIUM (BEAKER) (test aqfy=481) 3.9 meq/L 3.5-5.1 CHLORIDE (BEAKER) (test suty=755) 107 meq/L 98-107 CO2 (BEAKER) (test rbjs=223) 25 meq/L 22-29 BLOOD UREA NITROGEN (BEAKER) (test fwon=288) 30 mg/dL 7-21 CREATININE (BEAKER) (test ddcg=588) 1.91 mg/dL 0.57-1.25 GLUCOSE RANDOM (BEAKER) (test fdmn=577) 133 mg/dL 70-105 CALCIUM (BEAKER) (test fbxf=226) 9.1 mg/dL 8.4-10.2 EGFR (BEAKER) (test gmxx=0491) 27 mL/min/1.73 sq m ESTIMATED GFR IS NOT ACCURATE CREATININE CLEARANCE IN PREDICTING GLOMERULAR FILTRATION RATE. ESTIMATED GFR IS NOT APPLICABLE FOR DIALYSIS PATIENTS. IRON, TIBC, % SAT. (WITHOUT FERRITIN)2017-06-14 07:22:00* Test Item Value Reference Range Comments IRON (BEAKER) (test qyba=319) 42 ug/dL 40-160 TOTAL IRON BINDING CAPACITY (BEAKER) (test vlaz=756) 301 ug/dL 250-450 IRON % SATURATION (2) (BEAKER) (test uqrm=9684) 14 % 20-55 POCT-GLUCOSE [id number] 07:17:00* Test Item Value Reference Range Comments POC-GLUCOSE METER (BEAKER) (test uzkd=6626) 156 mg/dL 70-110 TESTED AT [facility] [address] [facility] [address] RETICULOCYTE [id number] 07:03:00* Test Item Value Reference Range Comments RETICULOCYTE COUNT PCT (BEAKER) (test qsfj=220) 1.8 % 0.5-1.7 CBC W/PLT COUNT & AUTO [id number] 07:03:00* Test Item Value Reference Range Comments WHITE BLOOD CELL COUNT (BEAKER) (test goto=986) 7.9 K/ L 3.5-10.5 RED BLOOD CELL COUNT (BEAKER) (test kawv=800) 4.08 M/ L 3.93-5.22 HEMOGLOBIN (BEAKER) (test lbty=905) 11.8 GM/DL 11.2-15.7 HEMATOCRIT (BEAKER) (test bftx=160) 36.4 % 34.1-44.9 MEAN CORPUSCULAR VOLUME (BEAKER) (test wioz=361) 89.2 fL 79.4-94.8 MEAN CORPUSCULAR HEMOGLOBIN (BEAKER) (test dxvk=009) 28.9 pg 25.6-32.2 MEAN CORPUSCULAR HEMOGLOBIN CONC (BEAKER) (test mwnm=754) 32.4 GM/DL 32.2- 35.5 RED CELL DISTRIBUTION WIDTH (BEAKER) (test gmir=606) 13.6 % 11.7-14.4 PLATELET COUNT (BEAKER) (test xagz=898) 131 K/CU MM 150-450 MEAN PLATELET VOLUME (BEAKER) (test jvul=949) 10.9 fL 9.4-12.3 NUCLEATED RED BLOOD CELLS (BEAKER) (test hjbu=401) 0 /100 WBC 0-0 NEUTROPHILS RELATIVE PERCENT (BEAKER) (test vzzs=399) 51 % LYMPHOCYTES RELATIVE PERCENT (BEAKER) (test rxai=972) 34 % MONOCYTES RELATIVE PERCENT (BEAKER) (test eeed=710) 6 % EOSINOPHILS RELATIVE PERCENT (BEAKER) (test ipms=570) 8 % BASOPHILS RELATIVE PERCENT (BEAKER) (test zscj=694) 1 % NEUTROPHILS ABSOLUTE COUNT (BEAKER) (test wngr=198) 3.99 K/ L 1.56-6.13 LYMPHOCYTES ABSOLUTE COUNT (BEAKER) (test gnus=749) 2.70 K/ L 1.18-3.74 MONOCYTES ABSOLUTE COUNT (BEAKER) (test kmuw=547) 0.44 K/ L 0.24-0.36 EOSINOPHILS ABSOLUTE COUNT (BEAKER) (test gcnr=042) 0.63 K/ L 0.04-0.36 BASOPHILS ABSOLUTE COUNT (BEAKER) (test iqhh=557) 0.08 K/ L 0.01-0.08 IMMATURE GRANULOCYTES-RELATIVE PERCENT (BEAKER) (test aiep=1546) 0 % 0-1 CT, CHEST, WITHOUT [id number] 03:45:00Patient with history of sarcoidosis diagnosed in 1999, untreated. Would like to evaluate for sequela of sarcoidosis.FINAL REPORT CLINICAL INDICATION: History of sarcoidosis COMPARISON: None Multiple axial images of the chest were performed without IV contrast utilizing a high resolution protocol, including supine inspiratory and expiratory and prone inspiratory high-resolution images. This exam was performed according to our departmental dose-optimization program , which includes automated exposure control, adjustment of [...] of the right subclavian artery. Signed: Manny Horvathort Verified Date/Time: 06/14/2017 03:45:59 Reading Location: [address] Reading Room ALYSIS W/ [id number] 22:18:00* Test Item Value Reference Range Comments COLOR (BEAKER) (test sibz=820) Light Yellow CLARITY (BEAKER) (test qtwm=765) Hazy SPECIFIC GRAVITY UA (BEAKER) (test okby=720) 1.012 1.001-1.035 PH UA (BEAKER) (test qeas=606) 5.5 5.0-8.0 PROTEIN UA (BEAKER) (test oirx=212) 10 mg/dL Negative GLUCOSE UA (BEAKER) (test noqr=654) Negative Negative KETONES UA (BEAKER) (test ynqf=017) Negative Negative BILIRUBIN UA (BEAKER) (test cxcd=805) Negative Negative BLOOD UA (BEAKER) (test ovbe=391) Negative Negative NITRITE UA (BEAKER) (test drfy=192) Positive Negative LEUKOCYTE ESTERASE UA (BEAKER) (test miiq=174) Large Negative UROBILINOGEN UA (BEAKER) (test xsxb=522) 0.2 mg/dL 0.2-1.0 RBC UA (BEAKER) (test zbyh=757) < /HPF WBC UA (BEAKER) (test kkbq=054) 41 /HPF BACTERIA (BEAKER) (test lqnp=298) Occasional SQUAMOUS EPITHELIAL (BEAKER) (test uulc=134) 14 /HPF SOURCE(BEAKER) (test ounw=1003) Urine, Clean Catch POCT-GLUCOSE [id number] 21:57:00* Test Item Value Reference Range Comments POC-GLUCOSE METER (BEAKER) (test qzqf=3951) 132 mg/dL 70-110 TESTED AT [facility] [address] [facility] [address] CREATININE, RANDOM [id number] 21:45:00* Test Item Value Reference Range Comments CREATININE URINE (BEAKER) (test kvri=649) 96.6 mg/dL Reference Range: No NormalsPROTEIN, RANDOM [id number] 21:45:00* Test Item Value Reference Range Comments PROTEIN, URINE (BEAKER) (test njcb=1064) 22 mg/dL 0-14 SODIUM, RANDOM [id number] 21:45:00* Test Item Value Reference Range Comments SODIUM URINE (BEAKER) (test tytc=683) 113 meq/L Reference Range: No NormalsPOCT-GLUCOSE [id number] 16:58:00* Test Item Value Reference Range Comments POC-GLUCOSE METER (BEAKER) (test nqec=5141) 145 mg/dL 70-110 TESTED AT [address] [address] MUGA, CARD IMAGING, EQ, REST, WM, [id number] 16:55:00FINAL REPORT PROCEDURE: Resting RADIONUCLIDE VENTRICULOGRAM (MUGA scan) CPT CODE: 77046 INDICATION: Chest pain HISTORY: Cardiac risk factors: Diabetes, hypertension, hyperlipidemia, tobacco use. Other cardiovascular history: CAD with prior [place]. Recent cardiac symptoms: Chest pain. PROTOCOL: Autologous red blood cells were labeled with Tc-99m pertechnetate by the in vitro method. 20.1 mCi of Tc-99m was injected intravenously as labeled red blood cells. Equilibrium gated planar cardiac images were obtained in multiple views at rest. IMAGING FINDINGS: Study quality is good. LV volume appears normal. RV volume appears normal. Gated images obtained at rest show normal LV wall motion and thickening. LVEF is 64%. IMPRESSION: 1. Normal resting radionuclide ventriculogram. 2. No previous [facility] study for comparison. Signed: Tiffany Dye MDReport Verified Date/Time: 06/13/2017 16:55:35 Reading Location: [address] Reading Room Electronically signed by: TIFFANY DYE MD on 2016 04:55 PM POCT-GLUCOSE [id number] 12:38:00* Test Item Value Reference Range Comments POC-GLUCOSE METER (BEAKER) (test zqdm=7090) 267 mg/dL 70-110 TESTED AT [facility] [address] [facility] [address] HEMOGLOBIN [id number] 10:37:00* Test Item Value Reference Range Comments HEMOGLOBIN A1C (BEAKER) (test mpqp=813) 6.9 % 4.3-6.1 BASIC METABOLIC [id number] 08:52:00* Test Item Value Reference Range Comments SODIUM (BEAKER) (test ymho=496) 139 meq/L 136-145 POTASSIUM (BEAKER) (test xrtp=469) 3.9 meq/L 3.5-5.1 CHLORIDE (BEAKER) (test czqs=616) 107 meq/L 98-107 CO2 (BEAKER) (test oaqz=744) 24 meq/L 22-29 BLOOD UREA NITROGEN (BEAKER) (test lkdd=619) 31 mg/dL 7-21 CREATININE (BEAKER) (test aimy=390) 1.92 mg/dL 0.57-1.25 GLUCOSE RANDOM (BEAKER) (test kafm=309) 136 mg/dL 70-105 CALCIUM (BEAKER) (test oopv=321) 9.0 mg/dL 8.4-10.2 EGFR (BEAKER) (test kyii=4979) 26 mL/min/1.73 sq m ESTIMATED GFR IS NOT ACCURATE CREATININE CLEARANCE IN PREDICTING GLOMERULAR FILTRATION RATE. ESTIMATED GFR IS NOT APPLICABLE FOR DIALYSIS PATIENTS. [id number] 08:38:00* Test Item Value Reference Range Comments MAGNESIUM (BEAKER) (test innt=184) 1.7 mg/dL 1.6-2.6 LIPID [id number] 08:38:00* Test Item Value Reference Range Comments TRIGLYCERIDES (BEAKER) (test lfzn=629) 159 mg/dL CHOLESTEROL (BEAKER) (test giyl=952) 94 mg/dL HDL CHOLESTEROL (BEAKER) (test qdyp=293) 33 mg/dL LDL CHOLESTEROL CALCULATED (BEAKER) (test ikpb=577) 29 mg/dL Triglyceride Reference Range: Low Risk <150 Borderline 150-199 High Risk 200-499 Very High Risk >=500Cholesterol Reference Range: Low Risk <200 Borderline 200-239 High Risk >240HDL Cholesterol Reference Range: Low Risk >=60 High Risk <40LDL Cholesterol Reference Range: Optimal <100 Near Optimal 100-129 Borderline 130-159 High 160-189 Very High >=190 POCT- GLUCOSE [id number] 08:19:00* Test Item Value Reference Range Comments POC-GLUCOSE METER (BEAKER) (test hpxo=4784) 159 mg/dL 70-110 TESTED AT [facility] [address] [facility] [address] TROPONIN [id number] 08:02:00* Test Item Value Reference Range Comments TROPONIN I (BEAKER) (test jhnp=819) 0.01 ng/mL 0.00-0.03 Troponin I (TnI) levels must be interpreted [...] failure, acidosis, acute neurological disease, and persistent tachyarrhythmia.TSH/FREE T4 IF [id number] 06:21 :00* Test Item Value Reference Range Comments THYROID STIMULATING HORMONE (BEAKER) (test wakr=564) 3.12 uIU/mL 0.35-4.94 PROTHROMBIN TIME/[id number] 05:51:00* Test Item Value Reference Range Comments PROTIME (BEAKER) (test ocki=562) 14.3 seconds 11.7-14.7 INR (BEAKER) (test yjhd=993) 1.1 <=5.9 RECOMMENDED COUMADIN/WARFARIN INR THERAPY RANGESSTANDARD DOSE: 2.0 - 3.0 Includes: PROPHYLAXIS for venous thrombosis, systemic embolization; TREATMENT for venous thrombosis and/or pulmonary embolus.HIGH RISK: Target INR is 2.5-3.5 for patients with mechanical heart valves.CBC W/PLT COUNT & AUTO [id number] 05:44:00* Test Item Value Reference Range Comments WHITE BLOOD CELL COUNT (BEAKER) (test lxvk=105) 8.5 K/ L 3.5-10.5 RED BLOOD CELL COUNT (BEAKER) (test owyb=620) 3.78 M/ L 3.93-5.22 HEMOGLOBIN (BEAKER) (test wbqi=214) 10.9 GM/DL 11.2-15.7 HEMATOCRIT (BEAKER) (test gnfa=107) 33.9 % 34.1-44.9 MEAN CORPUSCULAR VOLUME (BEAKER) (test wjav=224) 89.7 fL 79.4-94.8 MEAN CORPUSCULAR HEMOGLOBIN (BEAKER) (test riby=818) 28.8 pg 25.6-32.2 MEAN CORPUSCULAR HEMOGLOBIN CONC (BEAKER) (test fubs=243) 32.2 GM/DL 32.2- 35.5 RED CELL DISTRIBUTION WIDTH (BEAKER) (test geke=746) 13.6 % 11.7-14.4 PLATELET COUNT (BEAKER) (test dlhk=589) 142 K/CU MM 150-450 MEAN PLATELET VOLUME (BEAKER) (test lqzu=782) 11.5 fL 9.4-12.3 NUCLEATED RED BLOOD CELLS (BEAKER) (test dsvs=906) 0 /100 WBC 0-0 NEUTROPHILS RELATIVE PERCENT (BEAKER) (test yqyw=798) 48 % LYMPHOCYTES RELATIVE PERCENT (BEAKER) (test tgeu=115) 37 % MONOCYTES RELATIVE PERCENT (BEAKER) (test onee=165) 7 % EOSINOPHILS RELATIVE PERCENT (BEAKER) (test wffx=202) 8 % BASOPHILS RELATIVE PERCENT (BEAKER) (test wtwc=713) 1 % NEUTROPHILS ABSOLUTE COUNT (BEAKER) (test ajjg=102) 4.05 K/ L 1.56-6.13 LYMPHOCYTES ABSOLUTE COUNT (BEAKER) (test lemr=599) 3.11 K/ L 1.18-3.74 MONOCYTES ABSOLUTE COUNT (BEAKER) (test ouhk=544) 0.57 K/ L 0.24-0.36 EOSINOPHILS ABSOLUTE COUNT (BEAKER) (test evix=746) 0.64 K/ L 0.04-0.36 BASOPHILS ABSOLUTE COUNT (BEAKER) (test ozew=766) 0.08 K/ L 0.01-0.08 IMMATURE GRANULOCYTES-RELATIVE PERCENT (BEAKER) (test nvqw=7610) 0 % 0-1 POCT-GLUCOSE [id number] 03:25:00* Test Item Value Reference Range Comments POC-GLUCOSE METER (BEAKER) (test pogd=3417) 143 mg/dL 70-110 TESTED AT [facility] [address] [facility] [address] CREATINE KINASE (CK), TOTAL AND [id number] 23:07:00* Test Item Value Reference Range Comments CREATINE KINASE TOTAL (BEAKER) (test qmoh=403) 36 U/L 29-200 CREATINE KINASE-MB (BEAKER) (test mbjh=830) 0.8 ng/mL 0.0-6.6 CREATINE KINASE-MB INDEX (BEAKER) (test vhbb=555) 2.2 % CK-MB Reference Range:<6.7 Normal6.7-10.0 Borderline>10.0 AbnormalTROPONIN [id number] 23:07:00* Test Item Value Reference Range Comments TROPONIN I (RIVER) (test xych=205) 0.01 ng/mL 0.00-0.03 Troponin I (TnI) levels must be interpreted [...] failure, acidosis, acute neurological disease, and persistent tachyarrhythmia.POCT-GLUCOSE [id number] 20:44:00* Test Item Value Reference Range Comments POC-GLUCOSE METER (RIVER) (test qlau=2672) 195 mg/dL 70-110 TESTED AT [address] [address] RAD, CHEST, 1 VIEW, NON [id number] 15:25:00Reason for exam:->CHEST PAINFINAL REPORT Chest, 1 view. History: Chest pain. Comparison: None available. Discussion: The cardiomediastinal silhouette and pulmonary vasculature are within normal limits for a portable exam. The lungs are clear without evidence of consolidation or effusion. Degenerative changes are present in the thoracic spine. The soft tissues and osseous structures are intact. IMPRESSION: No acute cardiopulmonary abnormality. Signed: Benji Garnett [facility] Verified Date/Time: 06/12/2017 15:25:37 [facility] B-TYPE NATRIURETIC FACTOR (BNP)2017-06-12 14:50:00* Test Item Value Reference Range Comments B-TYPE NATRIURETIC PEPTIDE (RIVER) (test spuj=786) 154 pg/mL 0-100 CREATINE KINASE (CK), TOTAL AND [id number] 14:49:00* Test Item Value Reference Range Comments CREATINE KINASE TOTAL (RIVER) (test eofj=152) 43 U/L 29-200 CREATINE KINASE-MB (BEAKER) (test yfyp=011) 1.0 ng/mL 0.0-6.6 CREATINE KINASE-MB INDEX (BEAKER) (test skbk=146) 2.3 % CK-MB Reference Range:<6.7 Normal6.7-10.0 Borderline>10.0 AbnormalTROPONIN [id number] 14:49:00* Test Item Value Reference Range Comments TROPONIN I (BEAKER) (test wbgr=090) < ng/mL 0.00-0.03 Troponin I (TnI) levels must be interpreted [...] failure, acidosis, acute neurological disease, and persistent tachyarrhythmia.BASIC METABOLIC [id number] 14:45:00 * Test Item Value Reference Range Comments SODIUM (BEAKER) (test hmbg=916) 139 meq/L 136-145 POTASSIUM (BEAKER) (test lwmq=674) 5.2 meq/L 3.5-5.1 Specimen markedly hemolyzed CHLORIDE (BEAKER) (test djtx=727) 104 meq/L 98-107 CO2 (BEAKER) (test fuei=759) 21 meq/L 22-29 BLOOD UREA NITROGEN (BEAKER) (test aydy=020) 33 mg/dL 7-21 CREATININE (BEAKER) (test kyca=217) 2.15 mg/dL 0.57-1.25 Specimen markedly hemolyzed GLUCOSE RANDOM (BEAKER) (test pzok=264) 230 mg/dL 70-105 CALCIUM (BEAKER) (test vvde=989) 9.5 mg/dL 8.4-10.2 EGFR (BEAKER) (test mnte=7572) mL/min/1.73 sq m INSUFFICIENT CLINICAL DATA TO CALCULATE ESTIMATED GFR. [id number] 14:42:00* Test Item Value Reference Range Comments MAGNESIUM (BEAKER) (test osft=881) 2.3 mg/dL 1.6-2.6 Specimen markedly hemolyzed PT/[id number] 14:41:00* Test Item Value Reference Range Comments PROTIME (BEAKER) (test igyg=168) 14.2 seconds 11.7-14.7 INR (BEAKER) (test koyh=217) 1.1 <=5.9 PARTIAL THROMBOPLASTIN TIME (BEAKER) (test rslw=061) 32.8 seconds 22.5-36.0 RECOMMENDED COUMADIN/WARFARIN INR THERAPY RANGESSTANDARD DOSE: 2.0 - 3.0 Includes: PROPHYLAXIS for venous thrombosis, systemic embolization; TREATMENT for venous thrombosis and/or pulmonary embolus.HIGH RISK: Target INR is 2.5-3.5 for patients with mechanical heart valves.CBC W/PLT COUNT & AUTO [id number] 14:26:00* Test Item Value Reference Range Comments WHITE BLOOD CELL COUNT (BEAKER) (test ceie=986) 8.7 K/ L 3.5-10.5 RED BLOOD CELL COUNT (BEAKER) (test imcj=835) 3.95 M/ L 3.93-5.22 HEMOGLOBIN (BEAKER) (test irkg=170) 11.4 GM/DL 11.2-15.7 HEMATOCRIT (BEAKER) (test qolu=518) 35.1 % 34.1-44.9 MEAN CORPUSCULAR VOLUME (BEAKER) (test zttq=627) 88.9 fL 79.4-94.8 MEAN CORPUSCULAR HEMOGLOBIN (BEAKER) (test jbjl=319) 28.9 pg 25.6-32.2 MEAN CORPUSCULAR HEMOGLOBIN CONC (BEAKER) (test ntvl=413) 32.5 GM/DL 32.2- 35.5 RED CELL DISTRIBUTION WIDTH (BEAKER) (test bzaw=756) 13.8 % 11.7-14.4 PLATELET COUNT (BEAKER) (test mcxc=904) 166 K/CU MM 150-450 MEAN PLATELET VOLUME (BEAKER) (test tqbd=345) 11.9 fL 9.4-12.3 NUCLEATED RED BLOOD CELLS (BEAKER) (test zvfc=345) 0 /100 WBC 0-0 NEUTROPHILS RELATIVE PERCENT (BEAKER) (test nevl=583) 73 % LYMPHOCYTES RELATIVE PERCENT (BEAKER) (test bicf=471) 18 % MONOCYTES RELATIVE PERCENT (BEAKER) (test qdyn=518) 5 % EOSINOPHILS RELATIVE PERCENT (BEAKER) (test nktu=129) 3 % BASOPHILS RELATIVE PERCENT (BEAKER) (test pkvg=328) 1 % NEUTROPHILS ABSOLUTE COUNT (BEAKER) (test adcc=558) 6.35 K/ L 1.56-6.13 LYMPHOCYTES ABSOLUTE COUNT (BEAKER) (test jzze=552) 1.57 K/ L 1.18-3.74 MONOCYTES ABSOLUTE COUNT (BEAKER) (test swoh=177) 0.41 K/ L 0.24-0.36 EOSINOPHILS ABSOLUTE COUNT (BEAKER) (test bxbo=180) 0.30 K/ L 0.04-0.36 BASOPHILS ABSOLUTE COUNT (BEAKER) (test cyfz=128) 0.09 K/ L 0.01-0.08 IMMATURE GRANULOCYTES-RELATIVE PERCENT (BEAKER) (test zalk=1551) 0 % 0-1 CHEST 2 VIEWS [place] [id number] Patient Name: CINTIA GLEZ MR #: [id number] : 1955 Age/Sex: 62/F Req #: [id number] Adm Physician: Ordered by: DAFNE AMADOR DPDanica Report #: [id number] Location: [facility] Room/Bed: Procedure: [id number] DX/CHEST 2 VIEWS Exam Date: 08/07/17 Exam Time : 1100 REPORT STATUS: Signed PROCEDURE: Frontal and lateral views of the chest. COMPARISON: None. INDICATIONS: PULMONARY CLEARANCE FOR HYPERBARIC CHAMBER FINDINGS: Lines/tubes: None. Lungs: The lungs are well inflated and clear. There is no evidence of pneumonia or pulmonary edema. Left mid to lower lung linear atelectasis/scaring. Pleura: There is no pleural effusion or pneumothorax. Heart and mediastinum: The heart and the mediastinum are normal. Median sternotomy wires. Aorta is calcified and tortuous. Bones: No acute bony abnormality. IMPRESSION: 1. No acute cardiopulmonary disease. 2. Left mid to lower lung linear atelectasis/scaring. Dictated by: Jj Vincent M.D. on 08/07/2017 at 11:57 Electronically approved by: Jj Vincent M.D. on 08/07/2017 at 11:57 Dictated By: JJ VINCENT MD 1157 Transcribed By: TYRELL on 08/07/17 1157 COPY TO: DAFNE AMADOR DPDanica
[2017-09-01] MEDS ORDERED: KETOROLAC TROMETHAMINE 30 MG/ML VIAL IV STA (10:44)
[2017-09-01] MEDS ORDERED: HYDROCODONE/APAP 10MG-325MG TAB PO ONE (10:45)
[2017-09-01 11:23] LABS: BASOPHILS # (AUTO) 0.1 (0.0-0.1); BASOPHILS % 1.1 % (0.0-1.0); EOSINOPHILS # (AUTO) 1.4 (0.0-0.4); EOSINOPHILS % 11.4 % (0.0-6.0); HEMATOCRIT 33.8 % (34.2-44.1); HEMOGLOBIN 10.5 g/dL (12.0-16.0); LYMPHOCYTES # (AUTO) 2.3 (1.0-3.2); LYMPHOCYTES % 18.9 % (18.0-39.1); MEAN CORPUSCULAR HEMOGLOBIN 25.9 pg (28-32); MEAN CORPUSCULAR HGB CONC 31.1 g/dL (31-35); MEAN CORPUSCULAR VOLUME 83.3 fL (81-99); MONOCYTES # (AUTO) 0.9 (0.2-0.8); MONOCYTES % 7.6 % (4.4-11.3); NEUTROPHILS # (AUTO) 7.3 (2.1-6.9); NEUTROPHILS % 60.8 % (38.7-80.0); PLATELET COUNT 268 x10e3/uL (140-360); RED BLOOD COUNT 4.06 x10e6/uL (3.6-5.1)
[2017-09-01 11:27] LABS: INR 1.29; PROTHROMBIN TIME 15.1 seconds (11.9-14.5)
[2017-09-01 11:28] LABS: PARTIAL THROMBOPLASTIN TIME 35.1 seconds (23.8-35.5)
[2017-09-01 11:38] LABS: ALBUMIN 3.8 g/dL (3.5-5.0); ALBUMIN/GLOBULIN RATIO 0.7 (0.8-2.0); ANION GAP 18.9 mmol/L (8-16); CALCIUM 9.4 mg/dL (8.4-10.2); CREATININE, SERUM 4.78 mg/dL (0.57-1.11); POTASSIUM 3.9 mmol/L (3.5-5.1)
[2017-09-01] MEDS ORDERED: FENTANYL CITRATE/PF 100MCG/2 ML INJ IV ONE (11:45)
[2017-09-01] MEDS ORDERED: MORPHINE SULFATE 2 MG/ML SYR IV STA (14:28)
[2017-09-01] MEDS ORDERED: SODIUM CHLORIDE FLUSH 10 ML SYR INJ PRN (14:30)
[2017-09-01] MEDS ORDERED: SODIUM CHLORIDE 0.9% 1000ML 1,000 ML IV ONE (14:45)
--- OUTSIDE RECORDS SUMMARY | 2017-09-01 15:43 | XMS REPORT | Clinical Summary ---
Author Author [facility] Address Unknown Phone Unavailable Care Team Providers Care Supply Coordinator Name Role Phone PCP Unavailable Allergies Active [...] 06/28/2017 Acute postoperative pain 06/20/2017 Paroxysmal a-fib ([facility]) 06/20/2017 ACB x 3 (Dr. Castillo) - 12.1.17 06/16/2017 MILA (acute kidney injury) ([facility]) 06/16/2017 NSTEMI (non-ST elevated myocardial infarction) ([facility]) 06/16/2017 Acute pulmonary insufficiency following thoracic surgery ([facility]) 06/16/2017 Acute pulmonary edema ([facility]) 06/16/2017 ST elevation myocardial infarction involving left circumflex coronary 2016 artery ([facility]) Chest pain, unspecified type 06/12/2017 Encounters Date Type Specialty Care Team Description 06/28/2017 Emergency Cardiology James Yoon MD Fever, unspecified fever - Philip Quinonez MD cause (Primary Dx);SOB 06/30/2017 Jim Auguste (shortness of breath);S/P MD Shay coronary artery bypass graft x 3;Anemia, unspecified type;Elevated troponin;MILA (acute kidney injury) ([facility]);Cough;Influenza B;Paroxysmal a-fib ([facility]);Type 2 diabetes mellitus with hypoglycemia without coma, without long-term current use of insulin ([facility]) 06/16/2017 Procedure Pass 06/16/2017 Surgery Damien Castillo, BYPASS,AORTO CORONARY ANGELA 06/15/2017 Anesthesia Raj Barrera MD Event 06/15/2017 Procedure Pass 06/15/2017 Surgery Julio C Miller MD L CATH & CORONARY ANGIOS 06/12/2017 Hospital Cardiology James Yoon MD Chest pain, unspecified - Encounter Dimitris Horne MD type (Primary Dx);Acute 06/24/2017 Cleo Nuñez, kidney injury ([facility]);HTN (hypertension)Pippa Yashash-D benign;Mixed hyperlipidemia;Uncontroll ed type 2 diabetes mellitus with complication, with long-term current use of insulin ([facility]);Hypomagnesemia;SOB (shortness of breath);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, unspecified vessel or lesion type ([facility]);Unstable angina (HCC);MILA (acute kidney injury) (HCC) 06/12/2017 Orders Only General Internal Medicine after 08/31/2016 Social History Tobacco Use Types Packs/Day Years Used Date Never Smoker Smokeless Tobacco: Never Used Sex Assigned at Date Recorded Not on file Last Filed Vital Signs Vital Sign Reading Time Taken Blood Pressure 146/76 06/30/2017 12:00 PM CLAIMS MANAGER Pulse 65 06/30/2017 12:00 PM CLAIMS MANAGER Temperature 36.8 C (98.2 F) 06/30/2017 12:00 PM CLAIMS MANAGER Respiratory Rate 20 06/30/2017 12:00 PM CLAIMS MANAGER Oxygen Saturation 94% 06/30/2017 12:00 PM CLAIMS MANAGER Inhaled Oxygen - - Concentration Weight 87.6 kg (193 lb 3.2 oz) 06/30/2017 5:42 AM CLAIMS MANAGER Height 168 cm (5' 6.14") 06/27/2017 11:09 PM CLAIMS MANAGER Body Mass Index 31.05 06/30/2017 5:42 AM CLAIMS MANAGER Plan of Treatment Not on file Implants Implanted Type Area Linoleum Printer Device Expiration Model / Identifier Date Serial / Lot Sternal Zipfix Ndl Strl Cardiovasc N/A: Chest SYNTHES:SYNTHES 2021 08.501.001 [id number] - [id number] [facility] .20S / Implanted: Qty: 1 on 06/16/2017 by / Damien Castillo MD [id number] Procedures Procedure Name Priority Date/Time Associated Diagnosis Comments ENDOSCOPIC HARVEST,VEIN 06/16/2017 CORONARY ARTERY DISEASE 7:30 AM CLAIMS MANAGER Case Notes A[place]TO CORONARY BYPASS BYPASS,[place]TO CORONARY ANGELA 06/16/2017 CORONARY ARTERY DISEASE 7:30 AM CLAIMS MANAGER Case Notes A[place]TO CORONARY BYPASS L CATH & CORONARY ANGIOS 06/15/2017 cad 6:50 PM CLAIMS MANAGER after 08/31/2016 Results * ECHOCARDIOGRAM REPORT - [...] Range POC-Glucose Meter 169 (H)Comment: TESTED AT [address] 70 - 110 mg /dL [facility] [address] Specimen Performing Laboratory Blood [address] [address] * Calcium, Ionized (06/30/2017 5:58 AM) Only the most recent of 19 results within the time period is included. Component Value Ref Range Calcium, Ion 1.05 (L) 1.12 - 1.27 mmol/L pH, Blood 7.39 Specimen Performing Laboratory Blood [address] [address] * CBC with platelet count + automated [...] 1 % Granulocytes-Relative Specimen Performing Laboratory Blood [address] [address] * CBC with platelet count + automated diff (06/30/2017 5:58 AM) Only the most recent of 16 results within the time period is included. Specimen Performing Laboratory Blood Narrative The following orders were created for panel order CBC with platelet count + automated diff. Procedure Abnormality Status --------- - ------ CBC with platelet count ...[[id number]]AbnormalFinal result Please view results for these tests on the individual orders. * Phosphorus (06/30/2017 5:58 AM) Only the most recent of 11 results within the time period is included. Component Value Ref Range Phosphorus 3.1 2.3 - 4.7 mg/dL Specimen Performing Laboratory Blood [address] [address] * Magnesium (06/30/2017 5:58 AM) Only the most recent of 23 results within the time period is included. Component Value Ref Range Magnesium 1.7 1.6 - 2.6 mg/dL Specimen Performing Laboratory Blood [address] [address] * Basic metabolic panel (06/30/2017 5:58 AM) [...] FOR DIALYSIS PATIENTS. Specimen Performing Laboratory Blood [address] [address] * Iron, TIBC, % sat. (without ferritin) (06/29/2017 1:39 AM) Only the most recent of 2 results within the time period is included. Component Value Ref Range Iron 16 (L) 40 - 160 ug/dL TIBC 248 (L) 250 - 450 ug/dL Iron % Saturation 6 (L) 20 - 55 % Specimen Performing Laboratory Blood [address] [address] * Ferritin (06/29/2017 1:39 AM) Only the most recent of 2 results within the time period is included. Component Value Ref Range Ferritin 540 (H) 5 - 275 ng/mL Specimen Performing Laboratory Blood [address] [address] * Troponin I (06/29/2017 1:33 AM) Only the most recent of 11 results within the time period is included. Component Value Ref Range Troponin I 0.08 (H) 0.00 - 0.03 ng/mL [place] [address] Narrative Troponin I (TnI) levels must be [...] 0.5 - 1.7 % Specimen Performing Laboratory [address] [address] * B-type Natriuretic Factor (BNP) (06/29/2017 1:33 AM) Only the most recent of 4 results within the time period is included. Component Value Ref Range BNP 1230 (H) 0 - 100 pg/mL [place] [address] * NM lung scan (V/Q) (06/28/2017 4:38 PM) Specimen Performing Laboratory [facility] Narrative FINAL REPORT PROCEDURE: V/Q LUNG SCAN CPT CODE: 98076 INDICATION: Dyspnea PROTOCOL: 10.8 mCi ofXe-133 gas [...] MD Report Verified Date/Time:06/28/2017 17:18:07 Reading Location: [address] Reading Room Procedure Note Interface, External Ris In - 06/28/2017 5:20 PM CLAIMS MANAGER FINAL REPORT PROCEDURE: V/Q LUNG SCAN CPT CODE: 41811 INDICATION: Dyspnea PROTOCOL: 10.8 mCi of Xe-133 [...] Report Verified Date/Time: 06/28/2017 17:18:07 Reading Location: [address] Reading Room * ECG 12 lead (06/28/2017 12:15 PM) Only the most recent of 6 results within the time period is included. Specimen Performing Laboratory [facility]USE Narrative Ventricular Rate 69 BPM Atrial Rate 69 BPM P-R Interval 176 ms QRS Duration 100 ms Q-T Interval 452 ms QTC Calculation(Bazett) 484 ms P [place] 34 degrees R [place] 5 degrees T [place] 7 degrees Normal sinus rhythm Nonspecific T wave abnormality Prolonged QT Abnormal ECG When compared with ECG of 28-JUN-2017 12:15, No significant change was found Confirmed by MD ORELLANA JORGE ([id number]) on 06/28/2017 3:14:19 PM Procedure Note Interface, External Ris In - 06/28/2017 3:14 PM CLAIMS MANAGER Ventricular Rate 69 BPM Atrial Rate 69 BPM P-R Interval 176 ms QRS Duration 100 ms Q-T Interval 452 ms QTC Calculation(Bazett) 484 ms P [place] 34 degrees R [place] 5 degrees T [place] 7 degrees Normal sinus rhythm Nonspecific T [...] Date of Study06/28 ADRIANA Gender Female Visit [id number] Race Unknown Number [id number] Number Date of 1955 Referring Physician Age 62 year(s) Rand Butting Machine Operator Donaldo Espino Plastics Technician Danni ContrerasInterpreting Zayda Contreras MD Physician Procedure Type of Study TTE procedure:2DECHO W DOPPLER(CW/PW/COLOR) ([place]) Indications:Shortness of breath. Clinical History HGB 7.9 HCT 25.3 % CAD DM HLD HTN VA BYPASS AORTO CORONARY Height: 66 inches Weight: [...] External Ris In - 06/28/2017 3:38 PM CLAIMS MANAGER Transthoracic Echocardiography Report (TTE) Demographics Patient Name MARIE ROGERS Date of Study 06/28/2017 ADRIANA Gender Female Visit Number [id number] Race Unknown Room Number [id number] Number Date of 1955 Referring Physician Age 62 year(s) Rand Butting Machine Operator Donaldo Espino Plastics Technician Danni Gallegos Interpreting Zayda Contreras MD Physician Procedure Type of Study TTE procedure:2DECHO W DOPPLER(CW/PW/COLOR) ([place]) Indications:Shortness of breath. Clinical History HGB 7.9 HCT 25.3 % CAD DM HLD HTN VA BYPASS AORTO CORONARY Height: 66 inches Weight: [...] pairs Specimen Performing Laboratory Sputum - Expectorated [facility] [address] [place] [address] * PERIPHERAL VASCULAR REPORT - SCAN (06/28/2017 11:20 AM) Only the most recent of 4 results within the time period is included. * Respiratory Panel [facility] (06/28/2017 11:05 AM) Component Value Ref Range [...] detected, Inconclusive Specimen Performing Laboratory Nasopharyngeal - [facility] Nasopharyngeal Swab [address] [place] [address] * Venous doppler legs bilateral (06/28/2017 10:14 [...] Allen Date of Study 06/28/2017 62 Visit [id number] Female of 04/1955 Number Referring PHILIP Oliva Number [id number] Physician Rand Butting Machine Operator Clifford Mendoza. InterpretingJ. Barrington Blakely RVT, Asaf PÉREZ, SHERRIE Procedure Type of Study: Veins: Lower Extremities DVT Study, VENOUS DOPPLER LEG, BILATERAL. Indications for Study:Swelling. Patient Status:Routine. Study Location:Vascular Lab. Technical Quality:Adequate visualization. Risk Factors History of Disease + +----+ + !Diagnosis !Date!Comments ! + +----+ + !Other !!left broken 5th digit.! + +----+ + !History/Risk Factors: !!DM, HDL, HT, VA, CAD ! + +----+ + Procedure Note Interface, External Ris In - 06/28/2017 10:55 AM CLAIMS MANAGER PV LAB - Lower Extremities DVT Study Demographics Patient Name MARIE ROGERS Date of Study 06/28/2017 Age 62 Visit Number [id number] Gender Female Date of [address] [facility] Room Number 1123 Physician Rand Butting Machine Operator Clifford Mendoza. Interpreting Lazaro Blakely RVT, ARDMS [...] + !History/Risk Factors: ! !DM, HDL, HT, VA, CAD ! + +----+ + Impressions Right [...] Color, UA Yellow Clarity, UA Clear Specific Emerson, UA 1.009 1.001 - 1.035 pH, UA [...] Catch Specimen Performing Laboratory Urine - Urine, [facility] Catch [address] [place] [address] * Urine culture (06/28/2017 4:32 AM) Only the most recent of 2 results within the time period is included. Component Value Ref Range Result Result 10-19,000 col/mL Luz Maria glabrata (A) Specimen Performing Laboratory Urine - Urine, [facility] Catch [address] [place] [address] Narrative 30-39,000 col/mL skin jennifer * Influenza A H1N1 PCR (06/28/2017 3:14 AM) Component Value Ref Range Influenza A RNA Not Detected Not Detected, Inconclusive Novel H1N1 RNA Not Detected Not Detected, Inconclusive Specimen Performing Laboratory Nasopharyngeal - [facility] Nasopharyngeal Swab [address] [place] [address] Narrative These assays were performed by real-time RT-PCR (polymerization kettle operator-PCR) utilizing fluorogenic hydrolysis probe technology for the detection of human Influenza A viruses and the differential detection of novel H1N1 Influenza virus in respiratory specimens. The test is composed of (1) an RNA extraction from patient specimen, and (2) polymerization kettle operator-PCR amplification and detection with human Influenza A and novel C2P7-dwbpandl primers and probes. A well-conserved region of [...] and its performance characteristics determined by the [facility] Pathology Department, Section of Molecular Pathology.It has not been cleared or approved by the U.S. Food and Drug Administration (FDA).Since FDA approval is not required for clinical use of the test, validation was done as required by The Clinical Laboratory Amendments of 1988. These assays were performed by real-time RT-PCR (polymerization kettle operator-PCR) utilizing fluorogenic hydrolysis probe technology for the detection of human Influenza A viruses and the differential detection of novel H1N1 Influenza virus in respiratory specimens. The test is composed of (1) an RNA extraction from patient specimen, and (2) polymerization kettle operator-PCR amplification and detection with human Influenza A and novel B6Y8-rungooie primers and probes. A well-conserved region of [...] and its performance characteristics determined by the [facility] Pathology Department, Section of Molecular Pathology.It has [...] Negative, Inconclusive Specimen Performing Laboratory Nasopharyngeal - [facility] Nasopharyngeal Swab [address] [place] [address] * Blood culture (06/28/2017 3:04 AM) Only the most recent of 2 results within the time period is included. Component Value Ref Range Result No growth in 5 days Specimen Performing Laboratory Blood - Arm, [address] [address] * Lactic acid, venous, whole blood (06/28/2017 12:11 AM) Component Value Ref Range Lactate, Venous 1.1 0.5 - 2.2 mmol/L Specimen Performing Laboratory Blood - Arm, [address] [address] Narrative Effective 11/18/2015: Units/Reference Range Change New: 0.5-2.2 mmol/LPrevious: 5-20 mg/dL * Creatine Kinase (CK), Total and MB (06/28/2017 12:11 AM) Only the most recent of 8 results within the time period is included. Component Value Ref Range Total CK 43 29 - 200 U/L CK-MB 0.7 0.0 - 6.6 ng/mL MB Relative Index 1.6 % Specimen Performing Laboratory Blood - Arm, [address] [address] Narrative CK-MB Reference Range: <6.7Normal 6.7-10.0Borderline >10.0 [...] MD Report Verified Date/Time:06/28/2017 00:07:42 Reading Location: [facility] C013 CT Body Reading Room Procedure Note Interface, External Ris In - 06/28/2017 12:12 AM CLAIMS MANAGER FINAL REPORT INDICATION: SHORTNESS OF BREATH FEVER COMPARISON: June 21, 2017 TECHNIQUE: Single frontal view of the chest. IMPRESSION: Lungs and pleura: Clear lungs. No effusion. Heart and mediastinum: Stable enlarged cardiac silhouette. Visible mediastinal surgical changes are stable. Osseous structures: No acute abnormality. Other: None. Signed: JR Bates Robert MD Report Verified Date/Time: 06/28/2017 00:07:42 Reading Location: [facility] C013Y CT Body Reading Room * PERMANENT [...] Specimen Performing Laboratory Blood - Arm, Right [address] [address] * TRANSFUSION SERVICE REPORT - SCAN (06/21/2017 6:03 PM) Only the most recent of 3 results within the time period is included. * NM muga study (rest) (06/21/2017 1:29 PM) Only the most recent of 2 results within the time period is included. Specimen Performing Laboratory RIS Narrative FINAL REPORT PROCEDURE:Resting RADIONUCLIDE VENTRICULOGRAM (MUGA scan) CPT CODE:[id number] INDICATION: Prior revascularization (either PTCA or CABG) HISTORY:Cardiac risk factors: CAD/VA, ACB 06/16/17, Diabetes, Hypertension, Dyslipidemia. PROTOCOL:Autologous red [...] Normal LV systolic function.2. Compared to previous [facility] study on 06/13/17 there is no significant change. Signed: Tiffany Dye MD Report Verified Date/Time:06/21/2017 16:08:07 Reading Location: [address] Reading Room Procedure Note Interface, External Ris In - 06/21/2017 4:10 PM CLAIMS MANAGER FINAL REPORT PROCEDURE: Resting RADIONUCLIDE VENTRICULOGRAM (MUGA scan) CPT CODE: [id number] INDICATION: Prior revascularization (either PTCA or CABG) HISTORY: Cardiac risk factors: CAD/VA, ACB 06/16/17, Diabetes, Hypertension, Dyslipidemia. PROTOCOL: Autologous [...] LV systolic function. 2. Compared to previous [facility] study on 06/13/17 there is no significant change. Signed: Tiffany Dye MD Report Verified Date/Time: 06/21/2017 16:08:07 Reading Location: [address] Reading Room * Prepare Leuko-Red RBC (06/20/2017 11:54 PM) Component Value Ref Range CROSSMATCH COMPATIBLE Unit ABO O Pos UNIT NUMBER [id number] Status TRANSFUSED Blood Bank Product RED BLOOD CELLS PRODUCT CODE [id number] Specimen Performing Laboratory Other [place] * [...] Specimen Performing Laboratory Blood - Arm, Right [address] [address] * CARDIAC CATH REPORT - SCAN (06/19/2017 8:30 PM) * Hemoglobin and hematocrit (06/19/2017 10:13 AM) Only the most recent of 2 results within the time period is included. Component Value Ref Range Hemoglobin 8.6 (L) 11.2 - 15.7 GM/DL Hematocrit 26.3 (L) 34.1 - 44.9 % Specimen Performing Laboratory Blood [address] [address] * Transfuse Leuko-Red RBC (06/19/2017 9:52 AM) Only the most recent of 2 results within the time period is included. * Type and screen, automated (06/19/2017 6:44 AM) Only the most recent of 2 results within the time period is included. Component Value Ref Range ABO/RH AUTOMATED (BEAKER) O POSITIVE Ab Scrn NEGATIVE Specimen Performing Laboratory Blood [address] [address] * Oxygen saturation, measured (06/19/2017 3:38 AM) Only the most recent of 3 results within the time period is included. Component Value Ref Range O2 Saturation (Measured) 57.8 % Specimen Performing Laboratory Blood - Central Venous [facility] Line [address] [place] [address] * Lactate dehydrogenase (LDH) (06/19/2017 3:33 AM) Only the most recent of 2 results within the time period is included. Component Value Ref Range LDH 262 (H) 125 - 220 U/L Specimen Performing Laboratory Blood - Line, Arterial [address] [address] * Glucose (06/18/2017 6:34 PM) Only the most recent of 5 results within the time period is included. Component Value Ref Range Glucose 150 (H) 70 - 105 mg/dL Specimen Performing Laboratory Blood [address] [address] Narrative PRN - repeat glucose levels every [...] - 5.1 meq/L Specimen Performing Laboratory Blood [address] [address] Narrative PRN - repeat glucose levels every [...] 32.0 % Specimen Performing Laboratory Blood, Arterial [address] [address] * Lactic acid, arterial, whole blood (06/18/2017 3:17 AM) Only the most recent of 4 results within the time period is included. Component Value Ref Range Lactate, Art 1.1 0.5 - 2.2 mmol/L Specimen Performing Laboratory Blood, Arterial [address] [address] Narrative Effective 11/18/2015: Units/Reference Range Change New: 0.5-2.2 mmol/LPrevious: 5-20 mg/dL * [facility] CRITICAL LABS (ABG,NA,K,H&H,GLUCOSE) (06/17/2017 5:10 PM) Only the most recent of 11 results within the time period is included. Specimen Performing Laboratory Blood, Arterial Narrative The following orders were created for panel order [facility] CRITICAL LABS (ABG,NA,K,H& H,GLUCOSE). Procedure Abnormality Status --------- - ------ Blood gas, arterial[[id number]]Abnormal Final result Sodium Na-Stat Lab[[id number]] Normal Final result Potassium-Stat Lab[[id number]] Normal Final result Glucose-Stat Lab[[id number]] Abnormal Final result HGB/HCT (H&H)-Stat Lab[[id number]] Abnormal Final result Please view results for these tests on the individual orders. * Potassium-Stat Lab (06/17/2017 5:10 PM) Only the most recent of 11 results within the time period is included. Component Value Ref Range Potassium 4.2 3.6 - 5.5 meq/L Specimen Performing Laboratory Blood, Arterial [address] [address] * Sodium Na-Stat Lab (06/17/2017 5:10 PM) Only the most recent of 11 results within the time period is included. Component Value Ref Range Sodium 135 135 - 148 meq/L Specimen Performing Laboratory Blood, [address] [address] * Glucose-Stat Lab (06/17/2017 5:10 PM) Only the most recent of 11 results within the time period is included. Component Value Ref Range Glucose 125 (H) 70 - 110 mg/dL Specimen Performing Laboratory Blood, [address] [address] * HGB/HCT (H&H)-Stat Lab (06/17/2017 5:10 PM) Only the most recent of 11 results within the time period is included. Component Value Ref Range Hemoglobin 9.0 (L) 12.0 - 15.0 g/dL Hematocrit 26.0 (L) 36.0 - 45.0 % Specimen Performing Laboratory Blood, [address] [address] * Thromboelastograph (TEG) (06/16/2017 4:02 PM) Component [...] - 5.0 % Specimen Performing Laboratory Blood [address] [address] * aPTT (06/16/2017 4:02 PM) Component Value Ref Range PTT 43.4 (H) 22.5 - 36.0 seconds Specimen Performing Laboratory Blood [address] [address] * Prothromin time/INR (06/16/2017 4:02 PM) Only the most recent of 4 results within the time period is included. Component Value Ref Range Protime 17.3 (H) 11.7 - 14.7 seconds INR 1.4 <=5.9 Specimen Performing Laboratory Blood [address] [address] Narrative RECOMMENDED COUMADIN/WARFARIN INR THERAPY RANGES STANDARD DOSE: 2.0 - 3.0 Includes: PROPHYLAXIS for venous thrombosis, systemic embolization; TREATMENT for venous thrombosis and/or pulmonary embolus. HIGH RISK: Target INR is 2.5-3.5 for patients with mechanical heart valves. * Fibrinogen (06/16/2017 4:02 PM) Component Value Ref Range Fibrinogen 208 (L) 225 - 434 mg/dl Specimen Performing Laboratory Blood [address] [address] * ANESTHESIA ANNIE (06/16/2017 1:58 PM) Only the most recent of 2 results within the time period is included. Narrative Robi Cid MD 06/16/20171:58 PM ANNIE Pre Intervention Summary: Post Intervention Summary: Procedure Note Robi Cid MD - 06/16/2017 1:57 PM CLAIMS MANAGER Formatting of this note may be different from the original. ANNIE Pre Intervention Summary: Post Intervention Summary: * POC ACTIVATED CLOTTING TIME (06/16/2017 1:19 PM) Only the most recent of 9 results within the time period is included. Component Value Ref Range Activated Clotting Time 775Comment: TESTED AT [address] [address] Specimen Performing Laboratory Blood [address] [address] * Complement Component C3 (06/16/2017 3:21 AM) Component Value Ref Range C3 Complement 139 82 - 193 mg/dL Specimen Performing Laboratory Blood - Line, [address] [address] * Complement Component C4 (06/16/2017 3:21 AM) Component Value Ref Range C4 Complement 31 15 - 57 mg/dL Specimen Performing Laboratory Blood - Line, [address] [address] * CT brain without IV contrast (06/16/2017 [...] MD Report Verified Date/Time:06/16/2017 03:08:10 Reading Location: [address] Body Reading Room Procedure Note Interface, External Ris In - 06/16/2017 3:12 AM CLAIMS MANAGER FINAL REPORT CT, BRAIN, WITHOUT CONTRAST INDICATION: [...] Report Verified Date/Time: 06/16/2017 03:08:10 Reading Location: [facility] B1 C013Y CT Body Reading Room * Lung volumes (06/15/2017 11:05 AM) Narrative Arjun Hernandez RRT, RCP 06/15/2017 11:05 AM [facility] PFT CHARTING REPORT Infection Control/Hand Hygiene procedures followed throughout the encounter with patient: Yes Patient Identification Method: Patient name verified on armband, and Medical record on armband, Is the order complete?: Yes Account ID#: [id number] Patient Name: Marie Rogers Birthdate: 1955 Age: [...] Arjun Hernandez RRT, RCP 06/15/2017 11:05 AM [facility] PFT CHARTING REPORT Infection Control/Hand Hygiene procedures followed throughout the encounter with patient: Yes Patient Identification Method: Patient name verified on armband, and Medical record on armband, Is the order complete?: Yes Account ID#: [id number] Patient Name: Marie Rogers Birthdate: 1955 Age: [...] breath diffusion) (06/15/2017 11:05 AM) Arjun Ruiz, BANK APPRAISER, MANAGER PAID 06/15/2017 11:05 AM [facility] PFT CHARTING REPORT Infection Control/Hand Hygiene procedures followed throughout the encounter with patient: Yes Patient Identification Method: Patient name verified on armband, and Medical record on armband, Is the order complete?: Yes Account ID#: [id number] Patient Name: Marie Rogers Birthdate: 1955 Age: [...] contrast (06/15/2017 12:13 AM) Specimen Performing Laboratory [facility] Narrative FINAL REPORT CT, ABDOMEN \\T\\ PELVIS, [...] MD Report Verified Date/Time:06/15/2017 00:33:14 Reading Location: [facility] B1 C013Y CT Body Reading Room Procedure Note Interface, External Ris In - 06/15/2017 12:35 AM CLAIMS MANAGER FINAL REPORT CT, ABDOMEN \\T\\ PELVIS, WITHOUT [...] Report Verified Date/Time: 06/15/2017 00:33:14 Reading Location: [facility] B1 C013Y CT Body Reading Room * Carotid doppler bilateral (06/14/2017 2:40 PM) Component Value Ref Range Ejection Fraction Specimen Performing Laboratory [facility] Impressions Right Impression 1. There is [...] MARIE ROGERS Date of Study 06/14/2017 ADRIANA [id number] Age 62 Visit Number [id number] Gender Female Accession Number [id number] Date of 1955 Constantine Miller MD Room Number 3105 Physician SonographHector Moore. Barrington Blakely MD, RVSPhysician RPVI Procedure Type of Study: Cerebral: Carotid, CAROTID DOPPLER, BILATERAL. Indications for Study:PVD. Patient Status:Routine. Study Location:Vascular Lab. Technical Quality:Adequate visualization. Risk Factors History of Disease + +----+ + !Diagnosis !Date!Comments ! + +----+ + !Other !!left broken 5th digit.! + +----+ + !History/Risk Factors: !!DM, HDL, HT, VA, CAD ! + +----+ + Procedure Note Interface, External Ris In - 06/14/2017 3:49 PM CLAIMS MANAGER [facility] - Carotid Duplex Study Demographics Patient Name MARIE ROGERS Date of Study 06/14/2017 ADRIANA Age 62 Visit Number [id number] Gender Female Accession Number [id number] Date of 1955 Referring Julio C Miller MD Room Number 1455 Physician Rand Butting Machine Operator Bashir Rashid Interpreting Lazaro Blakely MD, RVS Physician RPVI Procedure Type of Study: Cerebral: Carotid, CAROTID DOPPLER, BILATERAL. Indications for Study:PVD. Patient Status:Routine. Study Location:Vascular Lab. Technical Quality:Adequate visualization. Risk Factors History of Disease + +----+ + !Diagnosis !Date!Comments ! + +----+ + !Other ! !left broken 5th digit. ! + +----+ + !History/Risk Factors: ! !DM, HDL, HT, VA, CAD ! + +----+ + Impressions Right [...] contrast (06/14/2017 3:27 AM) Specimen Performing Laboratory [facility] FINAL REPORT CLINICAL INDICATION: History of sarcoidosis [...] MD Report Verified Date/Time:06/14/2017 03:45:59 Reading Location: [address] Reading Room Procedure Note Interface, External Ris In - 06/14/2017 3:48 AM CLAIMS MANAGER FINAL REPORT CLINICAL INDICATION: History of sarcoidosis [...] Report Verified Date/Time: 06/14/2017 03:45:59 Reading Location: [address] Reading Room * Sodium, random urine (06/13/2017 9:17 PM) Component Value Ref Range Sodium Urine 113 meq/L Specimen Performing Laboratory Urine - Urine, [facility] [address] [place] [address] Narrative Reference Range: No Normals * Protein, random urine (06/13/2017 9:17 PM) Component Value Ref Range Protein, Urine 22 (H) 0 - 14 mg/dL Specimen Performing Laboratory Urine - Urine, [facility] [address] [place] [address] * Creatinine, random urine (06/13/2017 9:17 PM) Component Value Ref Range Creatinine, Ur 96.6 mg/dL Specimen Performing Laboratory Urine - Urine, [facility] [address] [place] [address] Narrative Reference Range: No Normals * Arterial [...] MARIE ROGERS Date of Study 06/13/2017 ADRIANA [id number] Age 62 Visit Number [id number] Gender Female Accession Number [id number] [facility] 1955 [facility] CarringtonographHector MooreJ. Barrington Blakely MD, RVSPhysician RPVI Procedure Type of Study: Extremities Arteries: Upper Extremities Arterial Duplex, ARTERIAL DOPPLER ARMS, BILATERAL. Indications for Study:Pre-Op Heart Bypass Surgery. Patient Status:Routine. Study Location:Vascular Lab. Technical Quality:Adequate visualization. Risk Factors History of Disease + +----+ + !Diagnosis !Date!Comments ! + +----+ + !Other !!left broken 5th digit.! + +----+ + !History/Risk Factors: !!DM, HDL, HT, VA, CAD ! + +----+ + Procedure Note Interface, External Ris In - 06/13/2017 6:16 PM CLAIMS MANAGER PV LAB - Upper Extremities Arterial Duplex Demographics Patient Name MARIE ROGERS Date of Study 06/13/2017 ADRIANA Age 62 Visit Number [id number] Gender Female Accession Number [id number] Date of 1955 Referring [facility] Room Number 1455 Physician Ozzie Rand Butting Machine Operator Bashir Rashid Interpreting Lazaro Blakely MD, RVS [...] + !History/Risk Factors: ! !DM, HDL, HT, VA, CAD ! + +----+ + Impressions Right [...] Ref Range Ejection Fraction Specimen Performing Laboratory [facility] Impressions Right Impression 1. The posterior [...] Allen Date of Study 06/13/2017 62 Visit [id number] Female of 04/1955 Number Referring Damien Castillo, Room Number 1455 Physician Rand Butting Machine Operator Clifford Mendoza. InterpretingJ. Barrington Blakely RVT, FRANCHESKADMSPhysiciedward PÉREZ, SHERRIE Procedure Type of Study: Extremities Arteries: Lower Extremity Arterial Procedure, ARTERIAL (LELIA'S W/DOPPLER) ONLY. Indications for Study:PVD. Patient Status:Routine. Study Location:Vascular Lab. Technical Quality:Adequate visualization. Risk Factors History of Disease +---------+----+ + !Diagnosis!Date!Comments ! +---------+----+ + !Other!!left broken 5th digit. ! +---------+----+ + !Other!!DM, HDL, HT, VA, CAD ! +---------+----+ + Procedure Note Interface, External Ris In - 06/13/2017 2:15 PM CLAIMS MANAGER [facility] LAB - Lower Extremity Arterial Procedure Demographics Patient Name MARIE ROGERS Date of Study 06/13/2017 Age 62 Visit Number [id number] Gender Female Date of 1955 Number Referring Damien Castillo, Room Number 1455 Physician Rand Butting Machine Operator Clifford Mendoza. Interpreting Lazaro Blakely Isaias, [facility] Physician , [facility] Procedure Type of Study: Extremities Arteries: Lower Extremity Arterial Procedure, ARTERIAL (LELIA'S W/DOPPLER) ONLY. Indications for Study:PVD. Patient Status:Routine. Study Location:Vascular Lab. Technical Quality:Adequate visualization. Risk Factors History of Disease +---------+----+ + !Diagnosis!Date!Comments ! +---------+----+ + !Other ! !left broken 5th digit. ! +---------+----+ + !Other ! !DM, HDL, HT, VA, CAD ! +---------+----+ + Impressions Right Impression [...] uIU/mL Specimen Performing Laboratory [facility], [place] [address] * Hemoglobin A1c (06/13/2017 5:24 AM) Component Value Ref Range Hemoglobin A1C 6.9 (H) 4.3 - 6.1 % Specimen Performing Laboratory [facility], [place] [address] * Lipid panel (06/13/2017 5:24 AM) Component Value Ref Range Triglycerides 159 mg/dL Cholesterol 94 mg/dL HDL 33 mg/dL LDL Calculated 29 mg/dL Specimen Performing Laboratory [facility], [place] [id number] Narrative Triglyceride Reference Range: Low Risk <150 [id number] High Risk 200-499 Very High Risk>=500 Cholesterol Reference Range: Low Risk <200 [id number] High Risk>240 HDL Cholesterol Reference Range: Low Risk >=60 High Risk <40 LDL Cholesterol Reference Range: Optimal<100 Near [id number] Hidxmhjqjt745-214 [id number] Very High >=190 * PT/PTT (06/12/2017 2:11 PM) Component Value Ref Range Protime 14.2 11.7 - 14.7 seconds INR 1.1 <=5.9 PTT 32.8 22.5 - 36.0 seconds Specimen Performing Laboratory [facility], [place] [id number] Narrative RECOMMENDED COUMADIN/WARFARIN INR THERAPY RANGES STANDARD DOSE: 2.0 - 3.0 Includes: PROPHYLAXIS for venous thrombosis, systemic embolization; TREATMENT for venous thrombosis and/or pulmonary embolus. HIGH RISK: Target INR is 2.5-3.5 for patients with mechanical heart valves. after 08/31/2016
[2017-09-01] MEDS ORDERED: QUETIAPINE FUMA25 MG PO (17:27)
[2017-09-01] MEDS ORDERED: ASPIR 8181 MG PO (17:27)
[2017-09-01] MEDS ORDERED: LOSARTAN POTASS50 MG PEG (17:27)
[2017-09-01] MEDS ORDERED: AMIODARONE HCL200 MG PO (17:27)
[2017-09-01] MEDS ORDERED: AMLODIPINE BESY10 MG PO (17:27)
[2017-09-01] MEDS ORDERED: ATORVASTATIN CA20 MG PO (17:27)
[2017-09-01] MEDS ORDERED: FERROUS SULFAT325 MG PO (17:27)
[2017-09-01] MEDS ORDERED: FUROSEMIDE40 MG PO (17:27)
[2017-09-01] MEDS ORDERED: apixaban PO (17:27)
[2017-09-01] MEDS ORDERED: METOPROLOL SUCC50 MG PO (17:27)
[2017-09-01] MEDS: ASPIRIN 325 MG TAB EC PO SCH (18:13)
[2017-09-01] MEDS: MORPHINE SULFATE 2 MG/ML SYR IV PRN (19:35)
[2017-09-01] MEDS: ONDANSETRON HCL INJ 2 MG/ML VIAL IV PRN (19:35)
[2017-09-01] MEDS: SODIUM CHLORIDE 0.9% 1000ML 1,000 ML IV SCH (19:48)
--- NOTE | 2017-09-01 20:04 | Diagnostic Imaging Report ---
EXAMINATION: CHEST SINGLE (PORTABLE) INDICATION: Swelling. Thrombophlebitis. COMPARISON: Chest x-ray 08/05/2017 FINDINGS: AP view TUBES and LINES: Median sternotomy wires and mediastinal clips are again seen. LUNGS: Lungs are well inflated. There is perihilar interstitial opacities, consistent with interstitial edema. PLEURA: No pleural effusion or pneumothorax. HEART AND MEDIASTINUM: Cardiac size is mildly enlarged. The aorta is ectatic with atherosclerotic calcifications. BONES AND SOFT TISSUES: No acute osseous lesion. Soft tissues are unremarkable. UPPER ABDOMEN: No free air under the diaphragm. IMPRESSION: Moderate cardiomegaly with diffuse interstitial edema. Superimposed multifocal pneumonia cannot be excluded. Signed by: Dr. Abisai Mallory M.D. on 09/01/2017 8:00 PM
[2017-09-01 20:30] VITALS: BP 141/61
[2017-09-01 21:50] VITALS: BP 161/72
[2017-09-01] MEDS: SODIUM BICARBONATE 650 MG TAB PO SCH (21:50)
--- NOTE | 2017-09-01 22:17 | Diagnostic Imaging Report ---
EXAM: US RENAL RETROPERITONEAL COMP INDICATION: Acute kidney injury \S\MILA NO DOPPLER COMPARISON: None TECHNIQUE: Transverse and longitudinal images of the kidneys and bladder were obtained. FINDINGS: Right Kidney: Length: 11.9 cm Appearance: Normal echogenicity. Collecting system: No hydronephrosis Stones: None Cyst/Mass: None Left Kidney: Length: 11.7 cm Appearance: Normal echogenicity. Collecting system: No hydronephrosis Stones: None Cyst/Mass: None Bladder: Normal Other: Right pleural effusion. IMPRESSION: No hydronephrosis Signed by: Dr Nicole Adkins MD on 09/01/2017 10:13 PM
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
[2017-09-02] MEDS: MORPHINE SULFATE 2 MG/ML SYR IV PRN ×6 (00:27→21:45)
[2017-09-02] MEDS: ONDANSETRON HCL INJ 2 MG/ML VIAL IV PRN ×6 (00:27→21:45)
[2017-09-02 00:36] VITALS: BP 148/67
[2017-09-02 05:16] VITALS: BP 144/68
[2017-09-02 06:17] LABS: BASOPHILS # (AUTO) 0.1 (0.0-0.1); BASOPHILS % 1.1 % (0.0-1.0); EOSINOPHILS # (AUTO) 1.1 (0.0-0.4); EOSINOPHILS % 12.5 % (0.0-6.0); HEMATOCRIT 29.7 % (34.2-44.1); HEMOGLOBIN 9.1 g/dL (12.0-16.0); LYMPHOCYTES # (AUTO) 1.5 (1.0-3.2); MEAN CORPUSCULAR HEMOGLOBIN 25.9 pg (28-32); MEAN CORPUSCULAR HGB CONC 30.6 g/dL (31-35); MEAN CORPUSCULAR VOLUME 84.6 fL (81-99); MONOCYTES # (AUTO) 0.7 (0.2-0.8); MONOCYTES % 7.5 % (4.4-11.3); NEUTROPHILS # (AUTO) 5.7 (2.1-6.9); NEUTROPHILS % 62.6 % (38.7-80.0); PLATELET COUNT 196 x10e3/uL (140-360); RED BLOOD COUNT 3.51 x10e6/uL (3.6-5.1); RED CELL DISTRIBUTION WIDTH 15.1 % (11.7-14.4)
[2017-09-02 06:46] LABS: ALBUMIN/GLOBULIN RATIO 0.8 (0.8-2.0); ANION GAP 15.4 mmol/L (8-16); CALCIUM 8.4 mg/dL (8.4-10.2); CREATININE, SERUM 4.88 mg/dL (0.57-1.11); PHOSPHORUS 6.3 MG/DL (2.3-4.7); POTASSIUM 4.4 mmol/L (3.5-5.1)
[2017-09-02 08:00] VITALS: BP 152/62
[2017-09-02] MEDS: ASPIRIN 325 MG TAB EC PO SCH (08:34)
[2017-09-02] MEDS: SODIUM BICARBONATE 650 MG TAB PO SCH ×2 (08:34→16:25)
[2017-09-02 11:30] LABS: CHOL/HDL RATIO 3.8 (3.0-3.6)
[2017-09-02 12:00] VITALS: BP 131/62
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
[2017-09-02 13:11] LABS: BILIRUBIN,URINE NEGATIVE (NEGATIVE); KETONES,URINE NEGATIVE (NEGATIVE); LEUKOCYTE ESTERASE ,URINE 2+ (NEGATIVE); NITRITE,URINE NEGATIVE (NEGATIVE); URINE UROBILINOGEN 0.2 mg/dL (0.2 - 1)
[2017-09-02 13:12] LABS: COLOR,URINE YELLOW (YELLOW); PROTEIN,URINE DIPSTICK 1+ (NEGATIVE)
[2017-09-02 13:15] LABS: AMORPHOUS SEDIMENT,URINE FEW (FEW); BACTERIA,URINE FEW /HPF; CLARITY,URINE HAZY (CLEAR); EPITHELIAL CELLS,URINE FEW /LPF
[2017-09-02 13:16] LABS: MUCUS,URINE FEW (RARE)
--- NOTE | 2017-09-02 15:02 | History and Physical ---
PRIMARY CARE PHYSICIAN: Dr. Rizo. SURETY BOND AGENT: Dr. Law. CHIEF COMPLAINT: Foot pain. HISTORY OF PRESENT ILLNESS: This is a 62-year-old woman with a history of diabetes mellitus, who has been having peripheral vascular disease symptoms since February of 2017, has been followed by Dr. Law. Now patient went to Dr. Law's office for a vascular study. Due to severity of her pain in her toes and changes in the color of the toes, she was sent to the hospital. Here she is found to have dry gangrene of almost all the toes. She is admitted for further evaluation and management. PAST MEDICAL HISTORY: Diabetes mellitus type 2, hypertension, coronary artery disease status post coronary artery bypass grafting x3 on June 16, 2017, sarcoidosis, nephrolithiasis in 1979, a 69-caqb-vtvy smoking history. PAST SURGICAL HISTORY: Coronary artery bypass grafting in June 2017, right foot surgery, appendectomy, cholecystectomy. ALLERGIES: PER THE ELECTRONIC MEDICAL RECORDS. FAMILY HISTORY/SOCIAL HISTORY: Patient is . She has 2 children. Occasional alcohol. She quit cigarettes in 2003. She has a significant smoking history of 56 pack years. MEDICATIONS: Per the electronic medical records. Medications reviewed. REVIEW OF SYSTEMS: Denies any dizziness, chest pain. VITAL SIGNS: Have been reviewed. Her blood pressure is 201/90 on admission. PHYSICAL EXAMINATION GENERAL APPEARANCE: A tired-appearing woman resting in bed. HEENT: Anicteric. Pupils responsive to light. No oral lesions. CARDIOVASCULAR: Normal S1/S2. LUNGS: Moderate breath sounds. ABDOMEN: Soft, nontender, nondistended. EXTREMITIES: She has gangrenous changes to all her toes. There is tenderness of the toes. Both feet are warm. Dorsalis pedis is 2+ bilaterally. SKIN: Dry. PSYCHIATRIC: Flat affect. MUSCULOSKELETAL: She has scars in her chest wall. LABS: Reviewed. ASSESSMENT AND PLAN: This is a 62-year-old woman. 1. Peripheral arterial disease with dry gangrenous changes to all the toes. Podiatry consultation. Antibiotics. Surgery has been consulted as well. Vascular has been consulted for further vascular evaluation and angiogram. 2. Renal dysfunction. Creatinine was 4.78. Patient states that she does not have a history of kidney disease. Nephrology consultation. Ultrasound of the kidney showed no hydronephrosis. 3. Diabetes mellitus type 2. Will obtain a hemoglobin A1c and lipid panel. 4. Coronary artery disease with a history of coronary artery bypass grafting recently. Will continue medication regimen. 5. Normocytic anemia, moderate. Will obtain an anemia panel. 6. Metabolic acidosis. Rehydrate patient and reassess. 7. Leukocytosis. Antibiotics, and leukocytosis appears to be resolving. 8. Continue aspirin, bicarb and fluids. 9. Will utilize heparin 5000 q.12 and Pepcid 20 q.12. 10. Disposition. Follow up surgical recommendations. Job#: [id number] EV
[2017-09-02 16:00] VITALS: BP 152/64
[2017-09-02] MEDS: FAMOTIDINE 20 MG/2 ML VIAL IV SCH (16:25)
[2017-09-02] MEDS: SODIUM CHLORIDE 0.9% 1000ML 1,000 ML IV SCH (16:25)
[2017-09-02 20:00] VITALS: BP 142/69
[2017-09-02] MEDS: HEPARIN SOD (PORCINE) 5,000 UNIT/ML VIAL SC SCH (21:37)
[2017-09-03 00:29] VITALS: BP 153/72
[2017-09-03] MEDS: MORPHINE SULFATE 2 MG/ML SYR IV PRN ×3 (02:49→15:45)
[2017-09-03] MEDS: ONDANSETRON HCL INJ 2 MG/ML VIAL IV PRN ×3 (02:49→15:45)
[2017-09-03 04:45] VITALS: BP 142/66
[2017-09-03 06:28] LABS: ANION GAP 15.5 mmol/L (8-16); CALCIUM 8.4 mg/dL (8.4-10.2); CREATININE, SERUM 4.75 mg/dL (0.57-1.11); POTASSIUM 4.5 mmol/L (3.5-5.1)
[2017-09-03 07:55] VITALS: BP 172/74
[2017-09-03] MEDS: FERROUS SULFATE 325 MG TAB PO SCH (08:37)
[2017-09-03] MEDS: ASPIRIN 325 MG TAB EC PO SCH (08:37)
[2017-09-03] MEDS: METOPROLOL SUCCINATE 50 MG TAB XL PO SCH (08:37)
[2017-09-03] MEDS: FAMOTIDINE 20 MG/2 ML VIAL IV SCH ×2 (08:37→16:04)
[2017-09-03] MEDS: SODIUM BICARBONATE 650 MG TAB PO SCH ×2 (08:37→16:04)
[2017-09-03] MEDS: FUROSEMIDE 40 MG TAB PO SCH ×2 (08:37→16:04)
[2017-09-03] MEDS: HEPARIN SOD (PORCINE) 5,000 UNIT/ML VIAL SC SCH ×2 (08:37→21:28)
[2017-09-03] MEDS: AMIODARONE HCL 200 MG TAB PO SCH ×2 (08:37→16:04)
[2017-09-03] MEDS ORDERED: AMLODIPINE BESYLATE 5 MG TAB PO SCH (09:00)
[2017-09-03] MEDS: VALSARTAN 160 MG TAB PO SCH (09:45)
--- NOTE | 2017-09-03 09:53 | Progress Note ---
DATE: September 03, 2017 CARDIOLOGY PROGRESS NOTE: SUBJECTIVE: Ms. Rogers's pain is better controlled. She continues to have gangrenous changes in both her feet. OBJECTIVE VITAL SIGNS: Afebrile. Heart rate 76. Blood pressure is 172/74. CARDIOVASCULAR: Regular rhythm. S4 gallop. Systolic murmur. LUNGS: Clear to auscultation bilaterally. CARDIOVASCULAR MEDICATIONS: Were reviewed and are appropriate. The patient remains on aspirin only as her antiplatelet therapy. Arterial duplex demonstrated mild peripheral arterial disease. Hemoglobin is 9.1. Serum creatinine is 4.75. ASSESSMENT: Thromboembolic lower extremity gangrene in the setting of recent coronary artery bypass surgery. PLAN: The patient would benefit from a CT angiogram with contrast to evaluate her abdominal aorta for potential thrombus, although her peripheral arterial duplex studies from her femoral arteries down is normal. However, renal failure precludes this test. Transesophageal echocardiogram, transthoracic echocardiogram is indicated to exclude cardiac source of embolization. Apixaban should be continued. Job#: [id number] EV
[2017-09-03] MEDS: SODIUM CHLORIDE 0.9% 1000ML 1,000 ML IV SCH (10:51)
[2017-09-03 11:16] LABS: BASOPHILS # (AUTO) 0.1 (0.0-0.1); EOSINOPHILS # (AUTO) 1.3 (0.0-0.4); EOSINOPHILS % 13.9 % (0.0-6.0); HEMATOCRIT 28.4 % (34.2-44.1); HEMOGLOBIN 8.7 g/dL (12.0-16.0); LYMPHOCYTES # (AUTO) 1.9 (1.0-3.2); LYMPHOCYTES % 20.5 % (18.0-39.1); MEAN CORPUSCULAR HEMOGLOBIN 26.5 pg (28-32); MEAN CORPUSCULAR HGB CONC 30.6 g/dL (31-35); MEAN CORPUSCULAR VOLUME 86.6 fL (81-99); MONOCYTES # (AUTO) 0.8 (0.2-0.8); MONOCYTES % 8.3 % (4.4-11.3); NEUTROPHILS # (AUTO) 5.1 (2.1-6.9); NEUTROPHILS % 56.2 % (38.7-80.0); PLATELET COUNT 203 x10e3/uL (140-360); RED BLOOD COUNT 3.28 x10e6/uL (3.6-5.1); RED CELL DISTRIBUTION WIDTH 15.2 % (11.7-14.4)
[2017-09-03] MEDS ORDERED: LORAZEPAM INJ 2 MG/ML VIAL IV PRN (12:00)
[2017-09-03] MEDS: AMLODIPINE BESYLATE 5 MG TAB PO SCH (12:36)
[2017-09-03] MEDS: HYDROCODONE/APAP 5MG-325MG TAB PO PRN ×2 (12:36→21:29)
[2017-09-03 14:43] VITALS: BP 172/74
--- NOTE | 2017-09-03 15:50 | Consultation ---
DATE OF CONSULTATION: September 03, 2017 PODIATRY SURGERY CONSULT HISTORY OF PRESENT ILLNESS: This is a 62-year-old female who is a patient to my practice. I had been seeing her at wound care. She was scheduled to see Dr. Law outpatient for a vascular study, and she was also scheduled to begin hyperbaric for the gangrene at the [facility] wound care center. During that time, she had a problem with the insurance. She lost her insurance. The leg began to worsen, and she came into the hospital. PAST MEDICAL HISTORY: A coronary bypass grafting in 2017, appendectomy, cholecystectomy, diabetes mellitus, hypertension, CAD, history of sarcoidosis, kidney disease. ALLERGIES: HYDRALAZINE. FAMILY HISTORY: She is . She has children. She lives at home with her , and she has a history of smoking. She quit in 2013. MEDICATIONS: Please refer to MAR. REVIEW OF SYSTEMS: Noncontributory except for dry gangrene to bilateral lower extremities on the digits. LOWER EXTREMITY PHYSICAL EXAMINATION: Gangrenous changes, dry gangrene noted to bilateral lower extremities of the digits. Pedal pulses are palpable. Capillary filling time is less than 5 seconds. She has an intrinsic minus type of foot, decreased protective threshold. There is localized erythema and edema consistent with vascular changes. Muscle mass is symmetrical. ASSESSMENT 1. Grade 4 ulcers bilateral lower extremities. 2. Gangrene, dry, bilateral lower extremities. 3. History of coronary arterial disease. 4. History of Buerger's disease. PLAN: At this point I discussed with the patient that we should continue with the plan to begin hyperbaric therapy. Once she begins hyperbaric therapy, if she responds and dependent on if the TCOMs improve, then an amputation of the nonviable tissue will be performed. She is aware that she is at risk for a transmetatarsal amputation. At this point she does not want an amputation. She wants to lose as little as she can of those lower extremities. Once discharged, she will continue to follow up at the wound care center. She will begin hyperbaric, and then we will continue plan of care with the amputations of the nonviable tissue. In the interim will continue to monitor the lower extremities. Will continue to follow. Job#: [id number] EV
[2017-09-03] MEDS: APIXAB 2.5 MG TABLET PO SCH (16:04)
[2017-09-03] MEDS: DOCUSATE SODIUM 100 MG CAP PO SCH (16:04)
[2017-09-03 20:02] VITALS: BP 140/63
[2017-09-03] MEDS: ATORVASTATIN 20 MG TAB PO SCH (21:28)
[2017-09-03] MEDS: QUETIAPINE FUMARATE 25 MG TAB PO SCH (21:28)
[2017-09-04] VITALS (8 sets, daily range): BP systolic 135–162; BP diastolic 61–74
[2017-09-04 06:31] LABS: BASOPHILS # (AUTO) 0.1 (0.0-0.1); EOSINOPHILS % 12.6 % (0.0-6.0); HEMATOCRIT 27.6 % (34.2-44.1); HEMOGLOBIN 8.4 g/dL (12.0-16.0); LYMPHOCYTES # (AUTO) 1.6 (1.0-3.2); LYMPHOCYTES % 20.7 % (18.0-39.1); MEAN CORPUSCULAR HEMOGLOBIN 26.1 pg (28-32); MEAN CORPUSCULAR HGB CONC 30.4 g/dL (31-35); MEAN CORPUSCULAR VOLUME 85.7 fL (81-99); MONOCYTES # (AUTO) 0.6 (0.2-0.8); MONOCYTES % 8.3 % (4.4-11.3); NEUTROPHILS # (AUTO) 4.4 (2.1-6.9); NEUTROPHILS % 57.1 % (38.7-80.0); PLATELET COUNT 166 x10e3/uL (140-360); RED BLOOD COUNT 3.22 x10e6/uL (3.6-5.1); RED CELL DISTRIBUTION WIDTH 15.4 % (11.7-14.4)
[2017-09-04] MEDS: SODIUM CHLORIDE 0.9% 1000ML 1,000 ML IV SCH ×2 (06:43→23:53)
[2017-09-04 07:09] LABS: ALBUMIN 2.6 g/dL (3.5-5.0); ALBUMIN/GLOBULIN RATIO 0.7 (0.8-2.0); ANION GAP 13.6 mmol/L (8-16); CALCIUM 8.1 mg/dL (8.4-10.2); CREATININE, SERUM 4.89 mg/dL (0.57-1.11); PHOSPHORUS 5.4 MG/DL (2.3-4.7); POTASSIUM 4.6 mmol/L (3.5-5.1)
[2017-09-04 07:13] LABS: FERRITIN 102.45 ng/mL (4.63-204.00)
[2017-09-04 07:26] LABS: FOLATE 8.2 ng/mL (7.0-15.4)
[2017-09-04] MEDS: SODIUM BICARBONATE 650 MG TAB PO SCH ×2 (08:36→17:38)
[2017-09-04] MEDS: ASPIRIN 325 MG TAB EC PO SCH (08:36)
[2017-09-04] MEDS: VALSARTAN 160 MG TAB PO SCH (08:37)
[2017-09-04] MEDS: FUROSEMIDE 40 MG TAB PO SCH (08:37)
[2017-09-04] MEDS: DOCUSATE SODIUM 100 MG CAP PO SCH ×2 (08:37→17:38)
[2017-09-04] MEDS: FAMOTIDINE 20 MG/2 ML VIAL IV SCH ×2 (08:37→17:38)
[2017-09-04] MEDS: METOPROLOL SUCCINATE 50 MG TAB XL PO SCH (08:37)
[2017-09-04] MEDS: FERROUS SULFATE 325 MG TAB PO SCH ×3 (08:37→20:51)
[2017-09-04] MEDS: AMIODARONE HCL 200 MG TAB PO SCH ×2 (08:37→17:38)
[2017-09-04] MEDS: APIXAB 2.5 MG TABLET PO SCH ×2 (08:37→17:38)
[2017-09-04] MEDS: AMLODIPINE BESYLATE 5 MG TAB PO SCH (08:37)
[2017-09-04] MEDS: MORPHINE SULFATE 2 MG/ML SYR IV PRN ×3 (08:41→20:30)
[2017-09-04] MEDS: ONDANSETRON HCL INJ 2 MG/ML VIAL IV PRN ×3 (08:47→20:30)
[2017-09-04] MEDS: HEPARIN SOD (PORCINE) 5,000 UNIT/ML VIAL SC SCH ×2 (11:25→21:00)
[2017-09-04] MEDS: FENTANYL 25 MCG/HR PATCH TOP SCH (12:20)
[2017-09-04] MEDS: HYDROCODONE/APAP 5MG-325MG TAB PO PRN (12:20)
--- NOTE | 2017-09-04 14:13 | Progress Note ---
DATE: September 04, 2017 CARDIOLOGY PROGRESS NOTE SUBJECTIVE: Patient denies chest pain or shortness of breath. She continues to complain of significant pain in her feet. OBJECTIVE VITALS: Temperature 98.3 degrees, pulse 59, respiratory rate is 18, blood pressure 146/67, oxygen saturation 96% on 3 L nasal cannula. GENERAL: Awake, alert, in no acute distress. LUNGS: Clear to auscultation bilaterally. No wheezes or crackles. CARDIOVASCULAR: Normal rate, regular rhythm. No murmur. Normal S1, S2. ABDOMEN: Soft, nontender. EXTREMITIES: No edema. Gangrenous changes are noted on toes bilaterally with discoloration. CARDIAC MEDICATIONS 1. Heparin 5000 units subcu q.12 hours. 2. Amlodipine 10 mg p.o. daily. 3. Apixaban 2.5 mg p.o. b.i.d. 4. Metoprolol succinate 50 mg p.o. daily. 5. Amiodarone 100 mg p.o. b.i.d. 6. Aspirin 325 mg p.o. q.8 hours. 7. Atorvastatin 80 mg p.o. q.h.s. LABS: WBC 7.6, hemoglobin 8.4, hematocrit 27.6, platelets 166. Sodium 132, potassium 4.6, chloride 103, CO2 of 20, BUN 69, creatinine 4.89. BNP 983. TELEMETRY: Normal sinus rhythm. IMPRESSION 1. Gangrenous changes of the bilateral lower extremities, suspicious for thromboembolic etiology. 2. Coronary artery disease, status post recent coronary artery bypass surgery. 3. Hypertension. 4. Sarcoidosis. RECOMMENDATIONS: Continue anticoagulation. Monitor patient on telemetry. Plan for ANNIE with anesthesia tomorrow for evaluation of cardioembolic etiology. The patient is undergoing evaluation for vasculitis as well. Would recommend CT angiogram of the abdomen with runoff; however, her renal failure currently precludes this. Continue current cardiac medications. Thank you for this consult. We will continue to follow. Job#: [id number] TIFFANIE
[2017-09-04] MEDS ORDERED: FERROUS SULFATE 325 MG TAB PO SCH (17:00)
[2017-09-04] MEDS: ASCORBIC ACID 500 MG TAB PO SCH (17:38)
[2017-09-04] MEDS: ATORVASTATIN 20 MG TAB PO SCH (20:51)
[2017-09-04] MEDS: QUETIAPINE FUMARATE 25 MG TAB PO SCH (20:51)
[2017-09-05] VITALS (7 sets, daily range): BP systolic 137–168; BP diastolic 62–72
[2017-09-05] MEDS: MORPHINE SULFATE 2 MG/ML SYR IV PRN ×3 (04:42→20:45)
[2017-09-05] MEDS: ONDANSETRON HCL INJ 2 MG/ML VIAL IV PRN ×3 (04:42→20:45)
[2017-09-05 06:32] LABS: ALBUMIN 2.8 g/dL (3.5-5.0); ALBUMIN/GLOBULIN RATIO 0.7 (0.8-2.0); ANION GAP 14.9 mmol/L (8-16); CALCIUM 8.4 mg/dL (8.4-10.2); CREATININE, SERUM 5.06 mg/dL (0.57-1.11); POTASSIUM 4.9 mmol/L (3.5-5.1)
[2017-09-05] MEDS: FAMOTIDINE 20 MG/2 ML VIAL IV SCH ×2 (08:16→16:55)
[2017-09-05] MEDS: APIXAB 2.5 MG TABLET PO SCH ×2 (08:17→16:55)
[2017-09-05] MEDS: AMIODARONE HCL 200 MG TAB PO SCH ×2 (08:17→16:55)
[2017-09-05] MEDS: DOCUSATE SODIUM 100 MG CAP PO SCH ×2 (08:17→16:55)
[2017-09-05] MEDS: FERROUS SULFATE 325 MG TAB PO SCH ×3 (08:18→21:02)
[2017-09-05] MEDS: HEPARIN SOD (PORCINE) 5,000 UNIT/ML VIAL SC SCH ×2 (08:18→21:00)
[2017-09-05] MEDS: SODIUM BICARBONATE 650 MG TAB PO SCH ×2 (08:18→16:55)
[2017-09-05] MEDS: ASCORBIC ACID 500 MG TAB PO SCH ×2 (08:18→16:55)
[2017-09-05] MEDS: ASPIRIN 325 MG TAB EC PO SCH (09:00)
[2017-09-05 09:15] LABS: ALPHA 2 GLOBULIN URINE PEP 7.3 % (.)
[2017-09-05] MEDS: IPRATROPIUM BROMIDE 0.02% 2.5 ML NEB NEB SCH ×4 (11:32→23:05)
[2017-09-05] MEDS: LEVALBUTEROL HCL SOLN NEBU 0.63 MG/3 ML NEB INH SCH ×4 (11:32→23:05)
[2017-09-05] MEDS ORDERED: LEVALBUTEROL HCL SOLN NEBU 1.25 MG/3 ML NEB ONE (11:35)
[2017-09-05] MEDS ORDERED: IPRATROPIUM BROMIDE 0.02% 2.5 ML NEB ONE (11:35)
[2017-09-05] MEDS ORDERED: BENZOCAINE 20% SPR 60 ML CAN PRN (11:43)
[2017-09-05] MEDS ORDERED: SODIUM CHLORIDE 0.9% 1000ML 1,000 ML PRN (11:43)
[2017-09-05] MEDS: MULTIVITAMINS/MINERALS TAB PO SCH (13:41)
[2017-09-05] MEDS: AMLODIPINE BESYLATE 5 MG TAB PO SCH (13:42)
[2017-09-05] MEDS: METOPROLOL SUCCINATE 50 MG TAB XL PO SCH (13:42)
--- NOTE | 2017-09-05 13:42 | Progress Note ---
DATE: September 05, 2017 CARDIOLOGY PROGRESS NOTE SUBJECTIVE: Patient denies chest pain or shortness of breath. She was seen for ANNIE. OBJECTIVE VITALS: Temperature 97.8 degrees, pulse 71, respiratory rate 18, blood pressure 168/69, oxygen saturation 91% on 3 L nasal cannula. GENERAL: Awake and alert, in no acute distress. LUNGS: Clear to auscultation bilaterally. No wheezes or crackles. CARDIOVASCULAR: Normal rate, regular rhythm. No murmur. Normal S1, S2. ABDOMEN: Soft, nontender. EXTREMITIES: No edema. Gangrenous changes are noted on the toes bilaterally. CARDIAC MEDICATIONS 1. Atorvastatin 80 mg p.o. at bedtime. 2. Amlodipine 10 mg p.o. daily. 3. Metoprolol succinate 50 mg p.o. daily. 4. Aspirin 325 mg p.o. q.a.m. 5. Apixaban 2.5 mg p.o. b.i.d. 6. 100 mg p.o. b.i.d. LABS: Sodium 136, potassium 4.9, chloride 105, CO2 of 21, BUN 71, and creatinine 5.06. TELEMETRY: Normal sinus rhythm. IMPRESSION 1. Gangrenous changes of the bilateral lower extremities, suspicious for thromboembolic etiology. 2. Coronary artery disease, status post recent coronary artery bypass surgery. 3. Hypertension. 4. Sarcoidosis. 5. Acute on chronic kidney disease. 6. Diabetes mellitus. RECOMMENDATIONS: ANNIE revealed complex atherosclerotic plaque in the descending thoracic aorta, suspect this is the etiology for the patient's gangrenous changes. Continue current cardiac medications. No arrhythmias have been identified on telemetry. There was no evidence of thrombus in the left atrium or left atrial appendage. Patient is undergoing further evaluation for her acute on chronic kidney disease by nephrology. Given the patient's hypoxia, consider diuresis if agreeable with nephrology. We would prefer to have a CT angiogram of the abdomen with runoff as well; however, her renal function currently precludes this. Continue anticoagulation. Thank you for this consult. We will continue to follow. Job#: [id number] PKU
[2017-09-05 13:53] LABS: CREATININE,URINE RANDOM 45.11 mg/dL (47-110); TOTAL PROTEIN 24HR, URINE 352.7 mg/24hr (50-100)
[2017-09-05] MEDS ORDERED: PROPOFOL IV EMULSION 10 MG/ML 20 ML VIAL ONE (14:22)
[2017-09-05] MEDS ORDERED: MIDAZOLAM HCL 2 MG/2 ML VIAL ONE (14:49)
[2017-09-05] MEDS ORDERED: FENTANYL CITRATE/PF 100MCG/2 ML INJ ONE (14:49)
[2017-09-05] MEDS ORDERED: ALBUTEROL/IPRATROPIUM 3 ML NEB NEB SCH (15:00)
[2017-09-05] MEDS: HYDROCODONE/APAP 10MG-325MG TAB PO PRN ×2 (17:47→23:32)
[2017-09-05] MEDS: SODIUM CHLORIDE 0.9% 1000ML 1,000 ML IV SCH (17:48)
[2017-09-05] MEDS: ATORVASTATIN 20 MG TAB PO SCH (21:02)
[2017-09-05] MEDS: QUETIAPINE FUMARATE 25 MG TAB PO SCH (21:02)
[2017-09-05] MEDS: COLLAGENASE 5 GM TUBE TP SCH (21:02)
[2017-09-06] VITALS: BP 149/66
[2017-09-06] MEDS: LEVALBUTEROL HCL SOLN NEBU 0.63 MG/3 ML NEB INH SCH ×6 (02:13→23:00)
[2017-09-06] MEDS: IPRATROPIUM BROMIDE 0.02% 2.5 ML NEB NEB SCH ×6 (02:13→23:00)
[2017-09-06] MEDS: MORPHINE SULFATE 2 MG/ML SYR IV PRN ×3 (02:55→23:58)
[2017-09-06] MEDS: ONDANSETRON HCL INJ 2 MG/ML VIAL IV PRN ×3 (02:56→23:58)
[2017-09-06 04:00] VITALS: BP 154/70
[2017-09-06 06:22] LABS: ALBUMIN 2.7 g/dL (3.5-5.0); ALBUMIN/GLOBULIN RATIO 0.7 (0.8-2.0); ANION GAP 15.3 mmol/L (8-16); CALCIUM 8.6 mg/dL (8.4-10.2); CREATININE, SERUM 5.21 mg/dL (0.57-1.11); POTASSIUM 5.3 mmol/L (3.5-5.1)
[2017-09-06 08:00] VITALS: BP 140/66
[2017-09-06] MEDS ORDERED: COLLAGENASE OINTMENT 30 GM TUBE TP SCH (09:00)
[2017-09-06] MEDS: FERROUS SULFATE 325 MG TAB PO SCH ×3 (09:00→21:16)
[2017-09-06] MEDS: SODIUM BICARBONATE 650 MG TAB PO SCH ×2 (09:00→17:00)
[2017-09-06] MEDS: DOCUSATE SODIUM 100 MG CAP PO SCH ×2 (09:00→17:00)
[2017-09-06] MEDS: ASCORBIC ACID 500 MG TAB PO SCH ×2 (09:00→17:00)
[2017-09-06] MEDS: AMLODIPINE BESYLATE 5 MG TAB PO SCH (09:00)
[2017-09-06] MEDS: MULTIVITAMINS/MINERALS TAB PO SCH (09:00)
[2017-09-06] MEDS: APIXAB 2.5 MG TABLET PO SCH ×2 (09:00→17:00)
[2017-09-06] MEDS: HEPARIN SOD (PORCINE) 5,000 UNIT/ML VIAL SC SCH ×2 (09:00→21:17)
[2017-09-06] MEDS: AMIODARONE HCL 200 MG TAB PO SCH ×2 (09:00→17:00)
[2017-09-06] MEDS: ASPIRIN 325 MG TAB EC PO SCH (09:00)
[2017-09-06] MEDS: METOPROLOL SUCCINATE 50 MG TAB XL PO SCH (09:00)
[2017-09-06] MEDS: FAMOTIDINE 20 MG/2 ML VIAL IV SCH ×2 (09:50→17:00)
[2017-09-06] MEDS ORDERED: SODIUM CHLORIDE 0.9% 500ML 500 ML PRN (10:40)
[2017-09-06] MEDS ORDERED: LIDOCAINE HCL 2% LOCAL 20 ML VIAL PRN (10:40)
[2017-09-06] MEDS ORDERED: FENTANYL CITRATE/PF 100MCG/2 ML INJ PRN (10:44)
[2017-09-06] MEDS ORDERED: HEPARIN SOD (PORCINE) 1000 UNIT/ML 30ML PRN (10:44)
[2017-09-06] MEDS ORDERED: MIDAZOLAM HCL 2 MG/2 ML VIAL PRN (10:45)
[2017-09-06] MEDS ORDERED: MORPHINE SULFATE 2 MG/ML SYR IV STA (12:59)
[2017-09-06] MEDS: FENTANYL 25 MCG/HR PATCH TOP SCH (13:04)
[2017-09-06] MEDS ORDERED: HEPARIN SOD (PORCINE) 1000 UNIT/ML SDV IV PRN (13:45)
[2017-09-06] MEDS ORDERED: MANNITOL 25% 12.5GM/50 ML VIAL IV PRN (13:45)
[2017-09-06] MEDS ORDERED: SODIUM CHLORIDE 0.9% 1000ML 2,000 ML IV PRN (13:45)
[2017-09-06] MEDS ORDERED: SODIUM CHLORIDE 0.9% 250ML 500 ML IV PRN (13:45)
[2017-09-06] MEDS ORDERED: ALBUMIN HUMAN 12.5GM / 50ML IV PRN (13:45)
[2017-09-06 16:00] VITALS: BP_SYST 149; BP_DIAS 65; BP_DIAS 68
[2017-09-06] MEDS: SODIUM CHLORIDE 0.9% 1000ML 1,000 ML IV SCH (17:26)
--- NOTE | 2017-09-06 18:46 | Progress Note ---
DATE: September 06, 2017 CARDIOLOGY PROGRESS NOTE SUBJECTIVE: The patient denies chest pain or shortness of breath. OBJECTIVE VITALS: Temperature 99 degrees, pulse 60, respiratory rate 16, blood pressure 140/66, and oxygen saturation 94% on 3 L nasal cannula. GENERAL: Awake, alert and in no acute distress. LUNGS: Clear to auscultation bilaterally. No wheezes or crackles. CARDIOVASCULAR: Normal rate and regular rhythm. No murmur. Normal S1 and S2. ABDOMEN: Soft and nontender. EXTREMITIES: No edema. Gangrenous changes are noted on multiple toes bilaterally. CARDIAC MEDICATIONS 1. Apixaban 2.5 mg p.o. b.i.d. 2. Amiodarone 100 mg p.o. b.i.d. 3. Atorvastatin 80 mg p.o. at bedtime. 4. Amlodipine 10 mg p.o. daily. 5. Metoprolol succinate 50 mg p.o. daily. 6. Heparin 5000 units subcutaneous q.12 h. 7. Aspirin 325 mg p.o. daily. LABS: Sodium 138, potassium 5.3, chloride 107, CO2 21, BUN 71, creatinine 5.21. Telemetry is normal sinus rhythm. IMPRESSION 1. Gangrenous changes of bilateral lower extremities, likely thromboembolic etiology. 2. Coronary artery disease, status post recent coronary artery bypass surgery. 3. Mlufl-in-xiavcdo kidney disease. 4. Hypertension. 5. Diabetes mellitus. 6. Sarcoidosis. 7. Hypoxia requiring supplemental oxygen. RECOMMENDATIONS: ANNIE revealed complex atherosclerotic plaque in the descending thoracic aorta. This is most likely the etiology for the patient's gangrenous changes. Continue current cardiac medications. No arrhythmias have been identified on telemetry. Continue monitoring. Further evaluation of the patient's yuwkt-eh-zwzidew kidney disease per nephrology. Would prefer to have CT angiogram of the abdomen with lower extremity runoff as well. However, her renal function currently precludes this. Continue anticoagulation. Consider diuresis given the patient's hypoxia if agreeable with nephrology. The patient can stop heparin subcutaneous as she is on Eliquis. Thank you for this consult. We will continue to follow. Job#: [id number] ZULEMA
[2017-09-06 20:00] VITALS: BP 167/76
[2017-09-06] MEDS: QUETIAPINE FUMARATE 25 MG TAB PO SCH (21:16)
[2017-09-06] MEDS: ATORVASTATIN 20 MG TAB PO SCH (21:16)
[2017-09-06] MEDS: HYDROCODONE/APAP 10MG-325MG TAB PO PRN (21:18)
[2017-09-07] VITALS: BP 158/72
[2017-09-07] MEDS: IPRATROPIUM BROMIDE 0.02% 2.5 ML NEB NEB SCH ×5 (03:00→23:30)
[2017-09-07] MEDS: LEVALBUTEROL HCL SOLN NEBU 0.63 MG/3 ML NEB INH SCH ×5 (03:00→23:30)
[2017-09-07 04:00] VITALS: BP 163/79
[2017-09-07 05:59] LABS: BASOPHILS # (AUTO) 0.1 (0.0-0.1); EOSINOPHILS # (AUTO) 0.6 (0.0-0.4); EOSINOPHILS % 6.9 % (0.0-6.0); HEMATOCRIT 29.2 % (34.2-44.1); HEMOGLOBIN 8.8 g/dL (12.0-16.0); LYMPHOCYTES # (AUTO) 1.1 (1.0-3.2); LYMPHOCYTES % 12.5 % (18.0-39.1); MEAN CORPUSCULAR HEMOGLOBIN 25.8 pg (28-32); MEAN CORPUSCULAR HGB CONC 30.1 g/dL (31-35); MEAN CORPUSCULAR VOLUME 85.6 fL (81-99); MONOCYTES # (AUTO) 0.8 (0.2-0.8); MONOCYTES % 8.5 % (4.4-11.3); NEUTROPHILS # (AUTO) 6.4 (2.1-6.9); NEUTROPHILS % 70.9 % (38.7-80.0); PLATELET COUNT 190 x10e3/uL (140-360); RED BLOOD COUNT 3.41 x10e6/uL (3.6-5.1); RED CELL DISTRIBUTION WIDTH 15.5 % (11.7-14.4)
[2017-09-07] MEDS: MORPHINE SULFATE 2 MG/ML SYR IV PRN ×4 (06:13→20:02)
[2017-09-07] MEDS: ONDANSETRON HCL INJ 2 MG/ML VIAL IV PRN ×3 (06:13→20:02)
[2017-09-07 06:21] LABS: ANION GAP 14.9 mmol/L (8-16); CREATININE, SERUM 3.83 mg/dL (0.57-1.11); POTASSIUM 4.9 mmol/L (3.5-5.1)
[2017-09-07 07:54] VITALS: BP 181/75
[2017-09-07] MEDS: FAMOTIDINE 20 MG/2 ML VIAL IV SCH ×2 (08:23→17:04)
[2017-09-07] MEDS: SODIUM BICARBONATE 650 MG TAB PO SCH ×2 (08:23→17:04)
[2017-09-07] MEDS: ASPIRIN 325 MG TAB EC PO SCH (08:23)
[2017-09-07] MEDS: MULTIVITAMINS/MINERALS TAB PO SCH (08:23)
[2017-09-07] MEDS: AMLODIPINE BESYLATE 5 MG TAB PO SCH (08:23)
[2017-09-07] MEDS: AMIODARONE HCL 200 MG TAB PO SCH ×2 (08:23→17:52)
[2017-09-07] MEDS: METOPROLOL SUCCINATE 50 MG TAB XL PO SCH (08:23)
[2017-09-07] MEDS: DOCUSATE SODIUM 100 MG CAP PO SCH ×2 (08:23→17:04)
[2017-09-07] MEDS: FERROUS SULFATE 325 MG TAB PO SCH ×3 (08:23→17:04)
[2017-09-07] MEDS: ASCORBIC ACID 500 MG TAB PO SCH ×2 (08:23→17:04)
[2017-09-07] MEDS: APIXAB 2.5 MG TABLET PO SCH ×2 (08:23→17:04)
[2017-09-07] MEDS: COLLAGENASE 5 GM TUBE TP SCH ×2 (08:24→09:00)
[2017-09-07] MEDS: HEPARIN SOD (PORCINE) 5,000 UNIT/ML VIAL SC SCH ×2 (09:00→20:13)
[2017-09-07 12:03] VITALS: BP 181/78
[2017-09-07] MEDS: NIFEDIPINE CR 30 MG TAB PO SCH (13:00)
[2017-09-07] MEDS: FENTANYL 25 MCG/HR PATCH TOP SCH (15:51)
[2017-09-07 16:11] VITALS: BP 167/72
[2017-09-07] MEDS: HYDROCODONE/APAP 10MG-325MG TAB PO PRN ×2 (17:04→23:33)
--- NOTE | 2017-09-07 17:34 | Progress Note ---
DATE: September 07, 2017 CARDIOLOGY PROGRESS NOTE SUBJECTIVE: The patient denies chest pain or shortness of breath. OBJECTIVE VITALS: Temperature 96.9 degrees, pulse 71, respiratory rate 18, blood pressure 181/78, and oxygen saturation 94% on 3 L nasal cannula. GENERAL: Awake and alert, in no acute distress. LUNGS: Clear to auscultation bilaterally. No wheezes or crackles. CARDIOVASCULAR: Normal rate and regular rhythm. No murmur. Normal S1 and S2. ABDOMEN: Soft and nontender. EXTREMITIES: No edema. Gangrenous changes are noted on multiple toes bilaterally. CARDIAC MEDICATIONS 1. Nifedipine 30 mg p.o. daily. 2. Heparin 5000 units subcutaneous q.12 h. 3. Apixaban 2.5 mg p.o. b.i.d. 4. Metoprolol succinate 50 mg p.o. daily. 5. Amiodarone 100 mg p.o. b.i.d. 6. Aspirin 325 mg p.o. q.a.m. 7. Atorvastatin 80 mg p.o. at bedtime. LABS: WBC 9.01, hemoglobin 8.8, hematocrit 29.2, and platelets 190. Sodium 140, potassium 4.9, chloride 105, CO2 25, BUN 44, and creatinine 3.83. TELEMETRY: Normal sinus rhythm. IMPRESSION 1. Gangrenous changes of bilateral lower extremities, likely thromboembolic etiology. 2. Coronary artery disease, status post recent coronary artery bypass surgery. 3. Xndva-wd-oejfhwc kidney disease. 4. Hypertension. 5. Diabetes mellitus. 6. Sarcoidosis. 7. Hypoxia, requiring supplemental oxygen. RECOMMENDATIONS: ANNIE revealed complex atherosclerotic plaque in the descending thoracic aorta. This is most likely the etiology of the patient's gangrenous changes. Continue current cardiac medications. No arrhythmias have been noted. Continue monitoring on telemetry. Further evaluation of the patient's hnnxx-cl-kugryhl kidney disease per nephrology. We would prefer to have CT angiogram of the abdomen with lower extremity runoff; however, her renal function currently precludes this. Consider diuresis given the patient's hypoxia, if agreeable with nephrology. Continue anticoagulation. Nephrology plans to initiate the patient on dialysis. We will ask if we may give IV contrast at this time. Thank you for this consult. We will continue to follow. Job#: [id number] ONUR
[2017-09-07 20:00] VITALS: BP 145/65
[2017-09-07] MEDS: QUETIAPINE FUMARATE 25 MG TAB PO SCH (20:02)
[2017-09-07] MEDS: ATORVASTATIN 20 MG TAB PO SCH (20:02)
[2017-09-08] VITALS (8 sets, daily range): BP systolic 132–158; BP diastolic 60–71
[2017-09-08] MEDS: IPRATROPIUM BROMIDE 0.02% 2.5 ML NEB NEB SCH ×6 (03:00→23:15)
[2017-09-08 05:58] LABS: BASOPHILS # (AUTO) 0.1 (0.0-0.1); EOSINOPHILS # (AUTO) 1.2 (0.0-0.4); EOSINOPHILS % 12.9 % (0.0-6.0); HEMATOCRIT 27.7 % (34.2-44.1); HEMOGLOBIN 8.4 g/dL (12.0-16.0); LYMPHOCYTES # (AUTO) 1.4 (1.0-3.2); MEAN CORPUSCULAR HEMOGLOBIN 25.7 pg (28-32); MEAN CORPUSCULAR HGB CONC 30.3 g/dL (31-35); MEAN CORPUSCULAR VOLUME 84.7 fL (81-99); MONOCYTES # (AUTO) 0.8 (0.2-0.8); MONOCYTES % 9.2 % (4.4-11.3); NEUTROPHILS # (AUTO) 5.5 (2.1-6.9); NEUTROPHILS % 61.7 % (38.7-80.0); PLATELET COUNT 182 x10e3/uL (140-360); RED BLOOD COUNT 3.27 x10e6/uL (3.6-5.1); RED CELL DISTRIBUTION WIDTH 15.6 % (11.7-14.4)
[2017-09-08] MEDS: HYDROCODONE/APAP 10MG-325MG TAB PO PRN ×3 (05:58→21:58)
[2017-09-08 06:17] LABS: CALCIUM 8.6 mg/dL (8.4-10.2); CREATININE, SERUM 3.28 mg/dL (0.57-1.11); MAGNESIUM 1.6 MG/DL (1.3-2.1)
[2017-09-08] MEDS: SODIUM CHLORIDE 0.9% 1000ML 1,000 ML IV SCH (06:38)
[2017-09-08] MEDS: LEVALBUTEROL HCL SOLN NEBU 0.63 MG/3 ML NEB INH SCH ×5 (07:16→23:15)
[2017-09-08] MEDS: ASPIRIN 325 MG TAB EC PO SCH (10:06)
[2017-09-08] MEDS: SODIUM BICARBONATE 650 MG TAB PO SCH ×2 (10:06→16:52)
[2017-09-08] MEDS: HEPARIN SOD (PORCINE) 5,000 UNIT/ML VIAL SC SCH ×2 (10:08→22:02)
[2017-09-08] MEDS: FAMOTIDINE 20 MG/2 ML VIAL IV SCH ×2 (10:08→16:52)
[2017-09-08] MEDS: AMIODARONE HCL 200 MG TAB PO SCH ×3 (10:08→16:52)
[2017-09-08] MEDS: ASCORBIC ACID 500 MG TAB PO SCH ×2 (10:09→16:52)
[2017-09-08] MEDS: DOCUSATE SODIUM 100 MG CAP PO SCH ×2 (10:09→16:52)
[2017-09-08] MEDS: FERROUS SULFATE 325 MG TAB PO SCH ×3 (10:09→21:58)
[2017-09-08] MEDS: MULTIVITAMINS/MINERALS TAB PO SCH (10:09)
[2017-09-08] MEDS: APIXAB 2.5 MG TABLET PO SCH ×2 (10:09→16:52)
--- NOTE | 2017-09-08 12:50 | Diagnostic Imaging Report ---
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 The patient's heart rate and pulse oximetry were continuously monitored by the interventional radiology nurse. Blood pressure was monitored at 5 minute intervals. Additional Medications: Lidocaine 1% for local anesthesia Fluoroscopy time: 0.9 minutes Dose-area Product: 139.4 cGycm2. Contrast used: 0 Estimated blood loss: Less than 5 cc Blood products administered: None Specimens: None Implants: 16 Zimbabwean, 19 cm tip-cuff tunneled hemodialysis catheter Condition at completion of procedure: Stable Disposition: Returned to floor Procedure in detail: Informed consent for the procedure was obtained from the patient after discussion of risks and benefits. The right neck and upper chest was prepped and draped in the standard sterile fashion after the patient was placed in the supine position on the fluoroscopic table. 1% lidocaine was administered into the skin and subcutaneous tissues of the right lower neck for local anesthesia. Then, under continuous sonographic guidance, a 21-gauge micropuncture needle was advanced into the right internal jugular vein. A 0.018 inch wire was advanced centrally under fluoroscopic guidance. The needle was then removed and access was secured with a micropuncture sheath. Intravascular length to the upper right atrium was determined using the microwire, which was then removed along with the inner dilator of the micropuncture sheath. A 0.035 inch Amplatz wire was then advanced through the micropuncture sheath into the inferior vena cava under fluoroscopic guidance. Attention was then turned to the right upper chest. A suitable catheter exit site was determined, approximately 3 fingerbreadths inferior to the clavicle. The skin was marked. 1% lidocaine was used to anesthetize a subcutaneous tract extending from the planned catheter exit site to the venotomy at the right lower neck. A stab incision was made on the right upper chest. Subsequently, the catheter was tunneled from the exit site of the right upper chest to the venotomy at the right lower neck. The retention cuff of the catheter was advanced well into the subcutaneous tunnel. The micropuncture sheath was then removed over the wire and the tract was serially dilated. Finally, a 16.5-Zimbabwean peel-away sheath was advanced over the wire under fluoroscopic guidance. The wire and inner dilator of the sheath were removed and the catheter was advanced through the peel-away sheath, which was then broken and removed. The catheter tip was positioned in the upper right atrium. Each catheter lumen showed good bidirectional flow. Each lumen was then packed with 2000 units of heparin. The catheter was secured at the exit site on the right upper chest with monofilament nylon suture. The venotomy at the right lower neck was closed with tissue adhesive. A sterile dressing was applied. The patient tolerated the procedure well without immediate complication. FINDINGS: Patent right internal jugular vein IMPRESSION: Successful placement of a 16 Zimbabwean, 19 cm tip-cuff tunneled hemodialysis catheter by a right internal jugular approach under sonographic and fluoroscopic guidance. Signed by: Dr. Dioni Nunez M.D. on 09/06/2017 1:22 PM
[2017-09-08] MEDS: NIFEDIPINE CR 30 MG TAB PO SCH (13:10)
[2017-09-08] MEDS: METOPROLOL SUCCINATE 50 MG TAB XL PO SCH (13:10)
[2017-09-08] MEDS: MORPHINE SULFATE 2 MG/ML SYR IV PRN ×2 (13:11→18:29)
[2017-09-08] MEDS: COLLAGENASE 5 GM TUBE TP SCH (13:36)
[2017-09-08] MEDS: ONDANSETRON HCL INJ 2 MG/ML VIAL IV PRN (18:30)
--- NOTE | 2017-09-08 19:18 | Progress Note ---
DATE: September 08, 2017 CARDIOLOGY PROGRESS NOTE SUBJECTIVE: Patient denies chest pain or shortness of breath. She was seen receiving hemodialysis. OBJECTIVE VITAL SIGNS: Temperature 98.2 degrees, pulse 77, respiratory rate 20, blood pressure 144/63, oxygen saturation 100% on 3 liters nasal cannula. GENERAL: Awake, alert, in no acute distress. LUNGS: Clear to auscultation bilaterally. No wheezes or crackles. CARDIOVASCULAR: Normal rate, regular rhythm. No murmur. Normal S1 and S2. ABDOMEN: Soft, nontender. EXTREMITIES: No edema. Gangrenous changes are noted on multiple toes bilaterally. CARDIAC MEDICATIONS 1. Apixaban 2.5 mg p.o. b.i.d. 2. Amiodarone 100 mg p.o. b.i.d. 3. Nifedipine 30 mg p.o. daily. 4. Metoprolol succinate 50 mg p.o. daily. 5. Aspirin 325 mg p.o. q.a.m. 6. Atorvastatin 80 mg p.o. nightly. LABS: WBC 8.99, hemoglobin 8.4, hematocrit 27.7, platelets 182. Sodium 137, potassium 4, chloride 102, CO2 24, BUN 31, creatinine 3.28. TELEMETRY: Normal sinus rhythm. IMPRESSION 1. Gangrenous changes of bilateral lower extremities, likely thromboembolic etiology. 2. Coronary artery disease status post recent coronary artery bypass graft. 3. Pskic-xs-poflyql kidney disease, now on hemodialysis. 4. Hypertension. 5. Diabetes mellitus. 6. Hypoxia requiring supplemental oxygen. 7. Sarcoidosis. RECOMMENDATIONS: ANNIE reveals complex atherosclerotic plaque in the descending thoracic aorta. This is most likely the etiology of the patient's gangrenous changes. Continue current cardiac medications. No arrhythmias have been noted. Continue monitoring on telemetry. We would like to have a CT angiogram of the abdomen with lower extremity runoff. However, her renal function currently precludes this. If Nephrology declares her end-stage renal disease, we will then be able to proceed. Consider diuresis given the patient's hypoxia, if agreeable with Nephrology. Continue anticoagulation. Thank you for this consult. We will continue to follow. Job#: [id number] EV
[2017-09-08] MEDS: ATORVASTATIN 20 MG TAB PO SCH (21:58)
[2017-09-08] MEDS: QUETIAPINE FUMARATE 25 MG TAB PO SCH (21:58)
[2017-09-09 00:41] VITALS: BP 147/67
[2017-09-09] MEDS: LEVALBUTEROL HCL SOLN NEBU 0.63 MG/3 ML NEB INH SCH ×3 (03:00→11:45)
[2017-09-09] MEDS: IPRATROPIUM BROMIDE 0.02% 2.5 ML NEB NEB SCH ×3 (03:00→11:45)
[2017-09-09] MEDS: HYDROCODONE/APAP 10MG-325MG TAB PO PRN ×2 (04:48→12:18)
[2017-09-09 05:23] VITALS: BP 120/57
[2017-09-09 06:12] LABS: BASOPHILS # (AUTO) 0.1 (0.0-0.1); BASOPHILS % 0.8 % (0.0-1.0); EOSINOPHILS # (AUTO) 0.9 (0.0-0.4); EOSINOPHILS % 10.9 % (0.0-6.0); HEMATOCRIT 26.7 % (34.2-44.1); LYMPHOCYTES # (AUTO) 1.1 (1.0-3.2); LYMPHOCYTES % 12.9 % (18.0-39.1); MEAN CORPUSCULAR HEMOGLOBIN 25.6 pg (28-32); MEAN CORPUSCULAR VOLUME 85.6 fL (81-99); MONOCYTES # (AUTO) 0.7 (0.2-0.8); MONOCYTES % 8.8 % (4.4-11.3); NEUTROPHILS # (AUTO) 5.5 (2.1-6.9); NEUTROPHILS % 66.4 % (38.7-80.0); PLATELET COUNT 150 x10e3/uL (140-360); RED BLOOD COUNT 3.12 x10e6/uL (3.6-5.1); RED CELL DISTRIBUTION WIDTH 15.6 % (11.7-14.4)
[2017-09-09 06:28] LABS: ANION GAP 13.1 mmol/L (8-16); CALCIUM 8.3 mg/dL (8.4-10.2); CREATININE, SERUM 2.74 mg/dL (0.57-1.11); POTASSIUM 4.1 mmol/L (3.5-5.1)
[2017-09-09] MEDS: SODIUM CHLORIDE 0.9% 1000ML 1,000 ML IV SCH (07:15)
[2017-09-09 08:19] VITALS: BP 159/67
[2017-09-09 09:00] VITALS: BP 159/67
[2017-09-09] MEDS: FAMOTIDINE 20 MG/2 ML VIAL IV SCH (09:00)
[2017-09-09] MEDS: NIFEDIPINE CR 30 MG TAB PO SCH (09:00)
[2017-09-09] MEDS: METOPROLOL SUCCINATE 50 MG TAB XL PO SCH (09:00)
[2017-09-09] MEDS: HEPARIN SOD (PORCINE) 5,000 UNIT/ML VIAL SC SCH (09:00)
[2017-09-09] MEDS: ASPIRIN 325 MG TAB EC PO SCH (09:00)
[2017-09-09] MEDS: APIXAB 2.5 MG TABLET PO SCH (09:00)
[2017-09-09] MEDS: DOCUSATE SODIUM 100 MG CAP PO SCH (09:00)
[2017-09-09] MEDS: FERROUS SULFATE 325 MG TAB PO SCH (09:00)
[2017-09-09] MEDS: SODIUM BICARBONATE 650 MG TAB PO SCH (09:00)
[2017-09-09] MEDS: ASCORBIC ACID 500 MG TAB PO SCH (09:00)
[2017-09-09] MEDS: AMIODARONE HCL 200 MG TAB PO SCH (09:00)
[2017-09-09] MEDS ORDERED: SODIUM BICARBO650 MG PO (09:01)
[2017-09-09] MEDS ORDERED: COLACE100 M1 PO (09:01)
[2017-09-09] MEDS ORDERED: Apixab PO (09:01)
[2017-09-09] MEDS ORDERED: ASPIRIN ENTERI325 MG PO (09:01)
[2017-09-09] MEDS ORDERED: NIFEDIPINE ER30 M1 PO (09:01)
[2017-09-09] MEDS ORDERED: LORAZEPAM0.5 MG PO (09:01)
[2017-09-09] MEDS ORDERED: ASCORBIC ACID500 MG PO (09:01)
[2017-09-09] MEDS ORDERED: MUCINEX DM ER1 EACH PO (09:01)
[2017-09-09] MEDS: COLLAGENASE 5 GM TUBE TP SCH (10:15)
[2017-09-09] MEDS: ONDANSETRON HCL INJ 2 MG/ML VIAL IV PRN (10:24)
[2017-09-09] MEDS: MORPHINE SULFATE 2 MG/ML SYR IV PRN (10:24)
--- NOTE | 2017-09-09 22:29 | Progress Note ---
DATE: September 09, 2017 CARDIOLOGY PROGRESS NOTE SUBJECTIVE: Patient denies chest pain or shortness of breath. OBJECTIVE VITAL SIGNS: Temperature 97.8 degrees, pulse 69, respiratory rate 18, blood pressure 169/67, oxygen saturation 94% on 4 L nasal cannula. GENERAL: Awake, alert, in no acute distress. LUNGS: Clear to auscultation bilaterally. No wheezes or crackles. CARDIOVASCULAR: Normal rate, regular rhythm. No murmur. Normal S1/S2. ABDOMEN: Soft, nontender. EXTREMITIES: No edema. Gangrenous changes are noted on multiple toes bilaterally. CARDIAC MEDICATIONS 1. Nifedipine 30 mg p.o. daily. 2. Apixaban 2.5 mg p.o. b.i.d. 3. Metoprolol succinate 50 mg p.o. daily. 4. Amiodarone 100 mg p.o. b.i.d. 5. Aspirin 325 mg p.o. daily. 6. Atorvastatin 80 mg p.o. nightly. LABS: WBC 8.27, hemoglobin 8, hematocrit 26.7, platelets 150,000. Sodium 138, potassium 4.1, chloride 103, CO2 26, BUN 21, creatinine 2.74. TELEMETRY: Normal sinus rhythm. IMPRESSIONS 1. Gangrenous changes of bilateral lower extremities, likely thromboembolic etiology. 2. Coronary artery disease, status post recent coronary artery bypass graft. 3. Jsbqp-xz-etmvfgr kidney disease, now on hemodialysis. 4. Hypertension. 5. Diabetes mellitus. 6. Hypoxia requiring supplemental oxygen. 7. Sarcoidosis. RECOMMENDATIONS: ANNIE revealed complex atherosclerotic plaque in the descending thoracic aorta. This is most likely the etiology of the patient's gangrenous changes. Continue current cardiac medications. No arrhythmias have been noted. Monitor on telemetry while inhouse. We would like to have a CT angiogram of the abdomen with lower extremity runoff as well. However, as patient was started on hemodialysis, will need to clarify with nephrology if she has end-stage renal disease. This can be followed as an outpatient as patient's changes are stable. The patient will follow up with us in 2 weeks. Thank you for this consult. We will continue to follow. Job#: [id number] CQ
--- NOTE | 2017-09-10 03:54 | Discharge Summary ---
ADMISSION DIAGNOSES 1. Peripheral arterial disease with dry gangrenous toes on bilateral feet. 2. Renal dysfunction. 3. Diabetes, types 2. 4. Coronary artery disease. 5. Anemia. 6. Metabolic acidosis. DISCHARGE DIAGNOSES 1. Peripheral arterial disease with dry gangrenous toes on bilateral feet. 2. Renal dysfunction. 3. Diabetes, types 2. 4. Coronary artery disease. 5. Anemia. 6. Metabolic acidosis. 7. End-stage renal disease. HISTORY: Patient has a history of type 2 diabetes, hypertension, CAD, status post CABG times 3 on June 16, 2017, sarcoidosis, nephrolithiasis in 1979, and a 56-pack per year smoking history. Surgical history of appendectomy, cholecystectomy, CABG in 2017, and right foot surgery. HOSPITAL COURSE: A 62-year-old female with PVD has been followed by Dr. Law since February of 2017. The patient went to Dr. Law's office for vascular study. Due to the severity of the pain in her toes and changes in color, she was sent to the hospital. At the hospital, she was found to have dry gangrene of almost all her toes. According to the patient, a lot of the workup for her toes has been pushed back because there were insurance issues. In the hospital, podiatry was consulted, as well as renal as the patient's creatinine was 4.75. She did not have any known history of kidney disease. On admission, renal ultrasound showed no hydronephrosis. Chest x-ray showed moderate cardiomegaly with diffuse interstitial edema. Per nephrology, the patient had a right IJ tunneled HD cath placed, and was started on dialysis on Monday, Monday and Monday. Per podiatry, the patient wants to move forward with hyperbaric therapy. If she responds to hyperbaric therapy, she will not move forward with amputation. She is aware that a TMA might be possible, but she would like to explore other options first. The patient had a ANNIE per cardiology, which showed complex atherosclerotic plaques in the descending thoracic aorta. They recommended that the patient get a CT of the abdomen with lower extremity runoff. Due to the renal function, they put that off. The patient can do that outpatient. The patient was started on Eliquis 2.5 mg. She was receiving the same dose at home. She will continue Lipitor, aspirin, metoprolol, nifedipine, amiodarone as well. Nephrology did a 24-hour urine, which showed a random total protein of 17 and a 24-hour total protein of 352. Creatinine was 45.1 with a 24-hour creatinine of 936. Creatinine clearance of 13. At the time of discharge, her WBC was 8.27, hemoglobin of 8, hematocrit 26.7, and platelets of 150,000. Sodium of 138, potassium 4.1, creatinine of 2.74. After speaking with case management, there was again another insurance issue, and the patient will not be able to have HBO for about 2 weeks. After speaking with the patient, she is aware that she will have to wait and would rather wait than move forward with the surgery. The patient was cleared for discharge by all consults. She has an outpatient dialysis chair set up starting Monday. was at bedside for instructions and discharge. All questions answered. She will follow up with cardiology and podiatry, as well as wound care for HBO. Follow up with PCP in 1-2 weeks. DICTATED BY MAX JUNIOR NP JULIO ANTONY MD Job#: [id number] ZULEMA
== END 2017-09-09 13:28 | disposition home or self-care (01) | DRG 299 ==
LOC: ER 09:51 → ERHOLD 14:29 → MED/SURG2 20:24
PROVIDERS: ADMIT Internal Medicine; ATTEND Internal Medicine
PROC: 02H633Z Insertion of Infusion Device into Right Atrium, Percutaneous Approach (ICD-10-PCS; principal; 2017-09-01)
PROC: 5A1D70Z Performance of Urinary Filtration, Intermittent, Less than 6 Hours Per Day (ICD-10-PCS; 2017-09-06)
PROC: 5A1D70Z Performance of Urinary Filtration, Intermittent, Less than 6 Hours Per Day (ICD-10-PCS; 2017-09-07)
PROC: 5A1D70Z Performance of Urinary Filtration, Intermittent, Less than 6 Hours Per Day (ICD-10-PCS; 2017-09-08)
DX: I73.1 Thromboangiitis obliterans [Buerger's disease] (principal); N18.6 End stage renal disease; I96 Gangrene, not elsewhere classified; N17.9 Acute kidney failure, unspecified; E11.22 Type 2 diabetes mellitus with diabetic chronic kidney disease; E87.2 Acidosis; D86.9 Sarcoidosis, unspecified; E86.0 Dehydration; I25.10 Atherosclerotic heart disease of native coronary artery without angina pectoris; Z95.1 Presence of aortocoronary bypass graft; F17.200 Nicotine dependence, unspecified, uncomplicated; Z86.73 Personal history of transient ischemic attack (TIA), and cerebral infarction without residual deficits; E11.51 Type 2 diabetes mellitus with diabetic peripheral angiopathy without gangrene; Z79.4 Long term (current) use of insulin; R09.02 Hypoxemia; I25.2 Old myocardial infarction; G89.29 Other chronic pain
CPT/HCPCS: 36415; 36565; 71045; 74470; 76770; 77002; 80048; 80053; 80061; 81001; 81050; 82575; 82607; 82728; 82746; 82948; 83036; 83540; 83735; 83880; 84100; 84156; 84166; 84466; 85025; 85610; 85730; 86021; 86022; 86039; 86160; 86335; 86431; 86704; 86706; 86803; 87086; 87340; 93306; 93312; 93320; 93325; 93925; 94640; 96374; 97139; 99284; C1750; C1751; C1769; J1644; J1885; J2001; J2150; J2250; J2270; J2405; J7030; J7040

== ENCOUNTER → 2017-09-13 | Outpatient (CLI) | payer OTHER ==
[~2017-09-13] MED LIST: AMIODARONE HCL200 MG PO; AMLODIPINE BESY10 MG PO; ASCORBIC ACID500 MG PO; ASPIR 8181 MG PO; ASPIRIN ENTERI325 MG PO; ATORVASTATIN CA20 MG PO; Apixab PO; COLACE100 M1 PO; FERROUS SULFAT325 MG PO; FUROSEMIDE40 MG PO; LORAZEPAM0.5 MG PO; LOSARTAN POTASS50 MG PEG; METOPROLOL SUCC50 MG PO; MUCINEX DM ER1 EACH PO; NIFEDIPINE ER30 M1 PO; QUETIAPINE FUMA25 MG PO; SODIUM BICARBO650 MG PO; apixaban PO
== END ==
LOC: WCC 08:17
PROVIDERS: ATTEND Family Medicine
DX: E11.621 Type 2 diabetes mellitus with foot ulcer (principal); L97.414 Non-pressure chronic ulcer of right heel and midfoot with necrosis of bone; L97.424 Non-pressure chronic ulcer of left heel and midfoot with necrosis of bone; L97.514 Non-pressure chronic ulcer of other part of right foot with necrosis of bone; L97.524 Non-pressure chronic ulcer of other part of left foot with necrosis of bone; D50.8 Other iron deficiency anemias; E78.2 Mixed hyperlipidemia; I10 Essential (primary) hypertension; I25.810 Atherosclerosis of coronary artery bypass graft(s) without angina pectoris; I48.2 Chronic atrial fibrillation; I70.203 Unspecified atherosclerosis of native arteries of extremities, bilateral legs; Z01.810 Encounter for preprocedural cardiovascular examination; Z01.811 Encounter for preprocedural respiratory examination
CPT/HCPCS: 36415; 82948

== ENCOUNTER → 2017-10-10 | Outpatient (CLI) | payer OTHER ==
--- NOTE | 2017-10-10 12:06 | Diagnostic Imaging Report ---
PROCEDURE:CHEST 2 VIEWS TECHNIQUE:PA and lateral chest INDICATION:Back and shoulder pain. COMPARISON:Patients [facility], DX, CHEST SINGLE (PORTABLE), 09/01/2017, 19:46. FINDINGS: Small right pleural effusion. Minimal right lower lobe volume loss. Lungs otherwise clear and symmetrically inflated. Upper limits of normal heart size, postoperative sequela of sternotomy. Right internal jugular dialysis catheter tips in the low SVC in high right atrium. Prominent central pulmonary vasculature. Mildly tortuous thoracic aorta. Grossly intact skeleton. CONCLUSION: 1. Trace right pleural effusion. 2. Mild central vascular congestion. Dictated by: Miguel A Montez M.D. on 10/10/2017 at 12:06 Electronically approved by: Miguel A Montez M.D. on 10/10/2017 at 12:06
== END ==
LOC: RAD 11:25
PROVIDERS: ATTEND Internal Medicine Nephrology
DX: M25.519 Pain in unspecified shoulder (principal)
CPT/HCPCS: 71046

== ENCOUNTER → 2017-11-15 | Outpatient (CLI) | payer OTHER | LOC: WCC 12:23 | PROVIDERS: ATTEND Podiatrist Foot & Ankle Surgery | DX: E11.621 Type 2 diabetes mellitus with foot ulcer (principal); L97.524 Non-pressure chronic ulcer of other part of left foot with necrosis of bone; L97.424 Non-pressure chronic ulcer of left heel and midfoot with necrosis of bone; L97.514 Non-pressure chronic ulcer of other part of right foot with necrosis of bone; L97.414 Non-pressure chronic ulcer of right heel and midfoot with necrosis of bone; I10 Essential (primary) hypertension; I48.2 Chronic atrial fibrillation; D50.8 Other iron deficiency anemias; E78.2 Mixed hyperlipidemia; I25.810 Atherosclerosis of coronary artery bypass graft(s) without angina pectoris; I70.203 Unspecified atherosclerosis of native arteries of extremities, bilateral legs; Z01.810 Encounter for preprocedural cardiovascular examination; Z01.811 Encounter for preprocedural respiratory examination ==

== ENCOUNTER → 2018-01-04 | Outpatient (CLI) | payer MEDICARE, OTHER ==
--- NOTE | 2018-01-04 13:43 | Diagnostic Imaging Report ---
PROCEDURE:CHEST 2 VIEWS TECHNIQUE:PA and lateral chest INDICATION:Shortness of breath COMPARISON:None. FINDINGS: Lungs are clear and symmetrically inflated. No pleural effusions. Normal heart size. Postoperative sequela of sternotomy and CABG. Right internal jugular tunneled dialysis catheter tips in the SVC and high right atrium. Intact skeleton. CONCLUSION: No acute abnormality. Specifically, no evidence of pulmonary edema. Dictated by: Miguel A Montez M.D. on 01/04/2018 at 13:47 Electronically approved by: Miguel A Montez M.D. on 01/04/2018 at 13:47
== END ==
LOC: RAD 12:30
PROVIDERS: ATTEND Family Medicine
DX: Z01.811 Encounter for preprocedural respiratory examination (principal)
CPT/HCPCS: 71046

== ENCOUNTER 2018-01-11 10:34 | Outpatient (RCR) | payer MEDICARE, OTHER | END 2018-01-13 | LOC: WCC 10:34 | PROVIDERS: ATTEND Family Medicine | DX: E11.621 Type 2 diabetes mellitus with foot ulcer (principal); E11.22 Type 2 diabetes mellitus with diabetic chronic kidney disease; E11.622 Type 2 diabetes mellitus with other skin ulcer; L97.424 Non-pressure chronic ulcer of left heel and midfoot with necrosis of bone; L97.524 Non-pressure chronic ulcer of other part of left foot with necrosis of bone; L97.414 Non-pressure chronic ulcer of right heel and midfoot with necrosis of bone; L97.514 Non-pressure chronic ulcer of other part of right foot with necrosis of bone; N18.4 Chronic kidney disease, stage 4 (severe); I10 Essential (primary) hypertension; D50.8 Other iron deficiency anemias; E78.2 Mixed hyperlipidemia; I25.810 Atherosclerosis of coronary artery bypass graft(s) without angina pectoris; I48.2 Chronic atrial fibrillation; I70.203 Unspecified atherosclerosis of native arteries of extremities, bilateral legs; Z01.810 Encounter for preprocedural cardiovascular examination; Z01.811 Encounter for preprocedural respiratory examination | CPT/HCPCS: 36415 ×6; 82948 ×6; 99213; G0277 ×4 ==

== ENCOUNTER 2018-01-15 09:07 | Outpatient (RCR) | payer MEDICARE, OTHER | END 2018-02-13 | LOC: WCC 09:07 | PROVIDERS: ATTEND Family Medicine | DX: E11.621 Type 2 diabetes mellitus with foot ulcer (principal); L97.514 Non-pressure chronic ulcer of other part of right foot with necrosis of bone; L97.524 Non-pressure chronic ulcer of other part of left foot with necrosis of bone | CPT/HCPCS: 36415; 82948; G0277 ==

== ENCOUNTER → 2018-02-13 | Outpatient (RCR) | payer MEDICARE, OTHER | LOC: WCC 01-16 11:36 | PROVIDERS: ATTEND Family Medicine Adult Medicine | DX: E11.621 Type 2 diabetes mellitus with foot ulcer (principal); L97.514 Non-pressure chronic ulcer of other part of right foot with necrosis of bone; L97.524 Non-pressure chronic ulcer of other part of left foot with necrosis of bone | CPT/HCPCS: 36415; 82948; G0277 ×14 ==

== ENCOUNTER 2018-03-14 09:53 | Outpatient (RCR) | payer MEDICARE, OTHER | END 2018-03-16 | LOC: WCC 09:53 | PROVIDERS: ATTEND Family Medicine | DX: E11.621 Type 2 diabetes mellitus with foot ulcer (principal); E11.22 Type 2 diabetes mellitus with diabetic chronic kidney disease; L97.524 Non-pressure chronic ulcer of other part of left foot with necrosis of bone; L97.514 Non-pressure chronic ulcer of other part of right foot with necrosis of bone; I70.203 Unspecified atherosclerosis of native arteries of extremities, bilateral legs; N18.4 Chronic kidney disease, stage 4 (severe); I10 Essential (primary) hypertension; D50.8 Other iron deficiency anemias; E78.2 Mixed hyperlipidemia; I25.810 Atherosclerosis of coronary artery bypass graft(s) without angina pectoris; I48.2 Chronic atrial fibrillation; Z01.810 Encounter for preprocedural cardiovascular examination; Z01.811 Encounter for preprocedural respiratory examination | CPT/HCPCS: 36415 ×8; 82948 ×10; G0277 ×12 ==

== ENCOUNTER 2018-04-13 08:36 | Outpatient (RCR) | payer MEDICARE, OTHER | END 2018-04-15 | LOC: WCC 08:36 | PROVIDERS: ATTEND Family Medicine | DX: E11.621 Type 2 diabetes mellitus with foot ulcer (principal); E11.22 Type 2 diabetes mellitus with diabetic chronic kidney disease; L97.514 Non-pressure chronic ulcer of other part of right foot with necrosis of bone; L97.524 Non-pressure chronic ulcer of other part of left foot with necrosis of bone; I70.203 Unspecified atherosclerosis of native arteries of extremities, bilateral legs; N18.4 Chronic kidney disease, stage 4 (severe); I25.810 Atherosclerosis of coronary artery bypass graft(s) without angina pectoris; I48.2 Chronic atrial fibrillation; D50.8 Other iron deficiency anemias; Z01.810 Encounter for preprocedural cardiovascular examination; Z01.811 Encounter for preprocedural respiratory examination | CPT/HCPCS: G0277 ×9 ==

== ENCOUNTER → 2018-05-16 | Outpatient (RCR) | payer MEDICARE, OTHER | LOC: WCC 04-16 10:27 | PROVIDERS: ATTEND Family Medicine | DX: E11.621 Type 2 diabetes mellitus with foot ulcer (principal); E11.22 Type 2 diabetes mellitus with diabetic chronic kidney disease; L97.514 Non-pressure chronic ulcer of other part of right foot with necrosis of bone; L97.524 Non-pressure chronic ulcer of other part of left foot with necrosis of bone; N18.4 Chronic kidney disease, stage 4 (severe); I10 Essential (primary) hypertension; I70.203 Unspecified atherosclerosis of native arteries of extremities, bilateral legs; I25.810 Atherosclerosis of coronary artery bypass graft(s) without angina pectoris; D50.8 Other iron deficiency anemias; E78.2 Mixed hyperlipidemia; I48.2 Chronic atrial fibrillation; Z01.810 Encounter for preprocedural cardiovascular examination; Z01.811 Encounter for preprocedural respiratory examination | CPT/HCPCS: 36415 ×14; 82948 ×14; G0277 ×15 ==

== ENCOUNTER 2018-05-28 14:10 | Outpatient (RCR) | payer MEDICARE, OTHER | END 2018-06-15 | LOC: WCC 14:10 | PROVIDERS: ATTEND Family Medicine | DX: E11.621 Type 2 diabetes mellitus with foot ulcer (principal); L97.514 Non-pressure chronic ulcer of other part of right foot with necrosis of bone; L97.524 Non-pressure chronic ulcer of other part of left foot with necrosis of bone | CPT/HCPCS: 36415 ×2; 82948 ×2; G0277 ×2 ==

== ENCOUNTER → 2019-05-13 | Day surgery (SDC) | payer MEDICARE, OTHER ==
[2019-05-09 13:05] LABS: BASOPHILS % 0.8 % (0.0-1.0); EOSINOPHILS # (AUTO) 0.1 (0.0-0.4); EOSINOPHILS % 2.5 % (0.0-6.0); HEMATOCRIT 35.1 % (34.2-44.1); HEMOGLOBIN 11.2 g/dL (12.0-16.0); LYMPHOCYTES # (AUTO) 1.1 (1.0-3.2); LYMPHOCYTES % 21.7 % (18.0-39.1); MEAN CORPUSCULAR HGB CONC 31.9 g/dL (31-35); MEAN CORPUSCULAR VOLUME 97.2 fL (81-99); MONOCYTES # (AUTO) 0.4 (0.2-0.8); MONOCYTES % 9.1 % (4.4-11.3); NEUTROPHILS # (AUTO) 3.2 (2.1-6.9); NEUTROPHILS % 65.5 % (38.7-80.0); PLATELET COUNT 127 x10e3/uL (140-360); RED BLOOD COUNT 3.61 x10e6/uL (3.6-5.1); RED CELL DISTRIBUTION WIDTH 16.7 % (11.7-14.4)
[2019-05-09 13:25] LABS: ALBUMIN 3.2 g/dL (3.5-5.0); ALBUMIN/GLOBULIN RATIO 0.7 (0.8-2.0); ANION GAP 17.5 mmol/L (8-16); CALCIUM 9.3 mg/dL (8.4-10.2); CREATININE, SERUM 4.2 mg/dL (0.57-1.11); POTASSIUM 3.5 mmol/L (3.5-5.1)
[2019-05-09 21:26] LABS: ANISOCYTOSIS SLIGHT; BLAST CELLS % MANUAL 1; EOSINOPHILS % (MANUAL) 1 % (0-7); HYPOCHROMASIA SLIGHT; LYMPHOCYTES % (MANUAL) 14 % (19-48); METAMYELOCYTES % (MANUAL) 2 % (0-0); MONOCYTES % (MANUAL) 9 % (3.4-9.0); MYELOCYTES % (MANUAL) 1 % (0-0); NEUTROPHILS % (MANUAL) 70 % (40-74); PLATELET ESTIMATE SLIGHTLY DECREASED; PLATELET MORPHOLOGY COMMENT NORMAL; POIKILOCYTOSIS SLIGHT; RBC MORPHOLOGY COMMENT NORMAL
[~2019-05-13] VITALS: Ht 170.2 cm; Wt 92.5 kg
[2019-05-13] VITALS (10 sets, daily range): BP systolic 114–139; BP diastolic 43–81
[~2019-05-13] MED LIST changes: +ALPRAZOLAM 0.5 MG TAB ONE; +CYCLOBENZAPRINE5 MG PO; +DIPHENHYDRAMINE HCL 25 MG CAP ONE; +FENTANYL CITRATE/PF 100MCG/2 ML INJ ONE; +FEROSUL325 MG PO; +HEPARIN SOD (PORCINE) 1000 UNIT/ML 30ML ONE; +HEPARIN SOD/SOD CHLORIDE 2,000 ML ONE; +IOPAMIDOL 370 MG/ML 200 ML INFUS..BTL INJ ONE; +LIDOCAINE HCL 2% LOCAL 20 ML VIAL ONE; +METOPROLOL SUCC25 MG PO; +MIDAZOLAM HCL 2 MG/2 ML VIAL ONE; +NITROGLYCERIN/D5W 200 MCG/ML 0 ML ONE; +SODIUM CHLORIDE 0.9% 1000ML 1,000 ML ONE
--- NOTE | 2019-05-13 12:59 | Operative Report ---
DATE OF PROCEDURE: 05/13/2019 SURGEON: Myron Law MD INDICATIONS: Coronary artery disease and abnormal stress test. PROCEDURES PERFORMED: 1. Left heart catheterization, selective coronary angiography. 2. Selective cannulation of one arterial and two venous bypass conduits. 3. Deployment of right groin Mynx closure device. COMPLICATIONS: None. RECOMMENDATIONS: Cardiac cleared for peritoneal dialysis catheter placement with staged intervention of the circumflex and obtuse marginal arteries. BLOOD LOSS: Minimal. DESCRIPTION OF PROCEDURE: Access obtained in the right femoral artery. A 6-Zimbabwean sheath was placed. Coronary angiography demonstrated 50% distal left main stenosis. Left anterior descending artery is heavily calcified. Diffuse proximal disease occluded in its midportion. Circumflex wedge was a moderate-sized vessel. The obtuse marginal branch had proximal and mid 90% stenosis, 2.5 mm vessel. Right coronary artery is completely occluded. Left internal mammary artery bypass to left anterior descending artery was widely patent. Right saphenous vein bypass to right posterior descending artery was widely patent. Saphenous vein bypass to obtuse marginal branch was completely occluded. Intervention was indicated for the obtuse marginal/circumflex stenosis, however, this will be staged after peritoneal dialysis has been initiated. Right groin repaired using Mynx closure device. The patient discharged home the same day. Myron Law MD KSB/MODL /[id number]
== END | disposition home or self-care (01) ==
LOC: CATH LAB 05:56
PROVIDERS: ATTEND Internal Medicine Interventional Cardiology
DX: I25.708 Atherosclerosis of coronary artery bypass graft(s), unspecified, with other forms of angina pectoris (principal); Z01.812 Encounter for preprocedural laboratory examination; Z88.8 Allergy status to other drugs, medicaments and biological substances; Z79.82 Long term (current) use of aspirin
CPT/HCPCS: 36415; 80053; 85025; 93455; C1760; C1769; J2001; J2250; J3010; J7030; Q9967; 99152; J1644

== ENCOUNTER 2020-06-09 12:24 | Emergency (ER) | payer MEDICARE, OTHER ==
[~2020-06-09] VITALS: Ht 170.2 cm; Wt 92.5 kg
[~2020-06-09 12:24] MED LIST changes: -ALPRAZOLAM 0.5 MG TAB ONE; -DIPHENHYDRAMINE HCL 25 MG CAP ONE; -FENTANYL CITRATE/PF 100MCG/2 ML INJ ONE; -HEPARIN SOD (PORCINE) 1000 UNIT/ML 30ML ONE; -HEPARIN SOD/SOD CHLORIDE 2,000 ML ONE; -IOPAMIDOL 370 MG/ML 200 ML INFUS..BTL INJ ONE; -LIDOCAINE HCL 2% LOCAL 20 ML VIAL ONE; -MIDAZOLAM HCL 2 MG/2 ML VIAL ONE; -NITROGLYCERIN/D5W 200 MCG/ML 0 ML ONE; -SODIUM CHLORIDE 0.9% 1000ML 1,000 ML ONE
--- NOTE | 2020-06-09 13:40 | Diagnostic Imaging Report ---
TECHNIQUE: Frontal view of the chest. INDICATION: ^Y ^FEVER, COUGH ^[id number] ^1300 COMPARISON: 09/01/2017 DISCUSSION: Limited evaluation due to portable technique. Lines and hardware: Stable midline sternotomy changes. Heart and mediastinum: Mild central vascular congestion is noted. Stable tortuous thoracic aorta. Lungs and pleura: No focal airspace consolidation. No pleural effusion. No pneumothorax. Soft tissues and bones: No acute abnormality. IMPRESSION: Mild central vascular congestion. Findings could relate to fluid overload or viral infection. No lobar consolidation is noted. Signed by: Gaurav Dominguez MD on 06/09/2020 1:37 PM
--- OUTSIDE RECORDS SUMMARY | 2020-06-09 14:03 | XMS REPORT | Clinical Summary ---
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 Active atorvastatin (LIPITOR) 80 Take 80 mg by 0 MG tablet mouth nightly . Active apixaban (ELIQUIS) 2.5 mg Take 1 tablet 60 tablet 0 Tab tablet (2.5 mg 7 total) by mouth 2 (two) times daily. Active losartan (COZAAR) 50 MG Take 1 tablet 30 tablet 0 tablet (50 mg total) 7 by mouth daily. Active Problems Problem Noted Date Fever, unspecified fever cause 06/28/2017 SOB (shortness of breath) 06/28/2017 Cough 06/28/2017 Influenza B 06/28/2017 Acute postoperative pain 06/20/2017 Paroxysmal A-fib 06/20/2017 ACB x 3 (Dr. Castillo) - 12.1.17 06/16/2017 MILA (acute kidney injury) 06/16/2017 NSTEMI (non-ST elevated myocardial infarction) 06/16 Acute pulmonary insufficiency following thoracic surg duncan 06/16/2017 Acute pulmonary edema 06/16/2017 ST elevation myocardial infarction involving left cir cumflex coronary 06/16/2017 artery Chest pain, unspecified type 06/12/2017 Encounters Care Team Description Date Type Specialty Alisia Cowan RN 10/23/2019 Abstract Transplant Sherrie Bhatia 10/21/2019 Documentation Transplant Zara Interiano Follow-up 09/17/2019 Telephone Transplant after 06/09/2019 Social History Date Tobacco Use Types Packs/Day Years Used Never Smoker Smokeless Tobacco: Never Used Sex Assigned at Date Recorded Not on file Last Filed Vital Signs Not on file Plan of Treatment Health Maintenance Due Date Last Done Comments BREAST CANCER SCREENING 1955 COLON CANCER SCREENING 1955 COLONOSCOPY DIABETIC EYE EXAM 01/24/1964 URINE MICROALBUMIN 01/24/1964 MEDICARE ANNUAL WELLNESS 11/15/2018 (YEAR 2 or FIRST YEAR if no IPPE) PNEUMOCOCCAL 65+ YRS (1 2019 of 1 - [id number]) HEMOGLOBIN A1C 10/16/2019 04/16/2019, 06/13/2017 INFLUENZA VACCINE (#1) 2020 Implants Device Identifier Shelf Expiration Date Model / Serial / L ot Implanted Type Area Manufactur er 02/13/2022 [id number] / / [id number] Sternal Zipfix Ndl Strl Cardiovasc N/A: Chest SYNTHE S:SY [id number] - [id number] [facility] Implanted: Qty: 1 on 06/16/2017 by Damien Castillo MD at [facility] Results Not on fileafter 06/09/2019 Insurance Type Payer Benefit Subscriber ID Effective Phone Address Plan / Dates Group Medicare MEDICARE MEDICARE A [id number] 2017-P B resent [id number] [place] (Home) [place], [place] [id number] Advance Directives For more information, please contact: [phone] Date Inactivated Comments Code Status Date Activated 06/30/2017 4:35 PM Full Code 06/28/2017 9:01 AM This code status was determined by: Patient 06/24/2017 4:53 PM Full Code 06/16/2017 4:01 PM This code status was determined by: Person 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
--- OUTSIDE RECORDS SUMMARY | 2020-06-09 14:06 | XMS REPORT | Continuity of Care Document ---
Author Author [facility] t Organization [facility] Address [facility] Torsten Suarez [address] [place] [address] Phone Unavailable Care Team Providers Care Cardiology Associate Name Role Phone PAPO HE MD PCP Madeline MAC Attphys Unavailable Camryn SMITH, Alisia Attphys Unavailable Nisha Bhatia Attphys Unavailable Charlie Interiano Attphys Unavailable BENJI MISTRY Attphys Unavailable Yvan CAMPBELL Attphys Unavailable LINDSEY RECIO Attphys Unavailable DAVID REYES Attphys Unavailable JULIO ANTONY Attphys Unavailable DAFNE AMADOR Attphys Unavailable Lai YOON Attphys Unavailable KILLAM, JULIO Admphys Unavailable SHAMSEE, WILDER-AHMED AIDEN-SHEILA Admphys Unavail able ROLDAN, RADHA ROCIO Admphys Unavailable Payers Payer Name Policy Type Policy Number Effective Date Expiration Date Clark lakisha MEDICAREMEDICARE A [id number] 2017-PresentMedicare [id number] 2017 00:00:00 [facility] Medicare A & B [id number] 2017 00:00:00 [facility] [employer] [id number] [facility] Aetna Medicare Supplement Plan [id number] 2017 00:00 :00 [facility] Problems Condition Name Condition Details Condition Category Status Onset Date Resolution Date Last Treatment Date Treating Clinician Comments Source Fever, unspecified fever cause Fever, unspecified fever cause Disea se Active 2017-06-28 00:00:00 [facility] SOB (shortness of breath) SOB (shortness of breath) Disease Ac tive 2017-06-28 00:00:00 [facility] Cough Cough Disease Active 2017-06-28 00:00:00 [facility] Influenza B Influenza B Disease Active 2017-06-28 00:00:00 [facility] Acute postoperative pain Acute postoperative pain Disease Acti ve 2017-06-20 00:00:00 [facility] Paroxysmal A-fib Paroxysmal A-fib Disease Active 2017-06-20 00:00:00 [facility] ACB x 3 (Dr. Castillo) - 12..17 ACB x 3 (Dr. Castillo) - 12..17 Disea se Active 2017-06-16 00:00:00 [facility] MILA (acute kidney injury) MILA (acute kidney injury) Disease Ac tive 2017-06-16 00:00:00 [facility] Acute pulmonary insufficiency following thoracic surge ry Acute pulmonary insufficiency following thoracic surgery Disease Active 2017-06-16 00:[facility] pulmonary edema Acute pulmonary edema Disease Active 201 01-25-01 00:00:00 [facility] ST elevation myocardial infarction involving left circ umflex coronary artery ST elevation myocardial infarction involving left circumflex coronary artery Disease Active 2017-06-16 00:00:00 [facility] Chest pain, unspecified type Chest pain, unspecified type Disease Active 2017-06-12 00:00:00 [facility] 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 Allergies, Adverse Reactions, Alerts Allergy Name Allergy Type Status Severity Reaction(s) Onset Date Inacti ve Date Treating Clinician Comments Source Hydralazine Allergy to Substance Active Moderate INCREASES BLOO D PRESSURE 2017-09-01 00:00:00 [facility] Glipizide Propensity to adverse reactions Active Othe r (See Comments) 2017-06-30 00:00:00 Severe hypoglycemia [facility] Hydralazine Analogues Propensity to adverse reactions Active 2017-06-12 00:00:00 [facility] Social History Social Habit Start Date Stop Date Quantity Comments Source Sex Assigned At [facility] Tobacco use and exposure 2019-03-19 00:00:00 2019-03-19 00:00:00 Bijal villatoro used [facility] Smoking Status Start Date Stop Date Source Never smoker [facility] Medications Ordered Medication Name Filled Medication Name Start Date Stop Da te Current Medication? Ordering Clinician Indication Dosage Frequency Signature (SIG) Comments Components Source Apixab 2.5 Mg Tablet, 2.5 Mg Oral Apixab 2.5 Mg Tablet, 2.5 Mg Oral 2017-09-09 00:00:00 2019-05-09 00:00:00 No Maylin M [place] Drama Critic 2.[address] [facility] Ascorbic Acid 500 Mg Tablet, 500 Mg Oral Ascorbic Acid 500 Mg Tablet, 500 Mg Oral 2017-09-09 00:00:00 2019-05-09 00:00:00 No Maylin M [place] Drama Critic 500 Twice A Day [facility] Aspirin (Aspirin Enteric Coated) 325 Mg Tabec, 325 Mg Oral Aspirin (Aspirin Enteric Coated) 325 Mg Tabec, 325 Mg Oral 2017-09-09 00:00:00 2019-05-09 00:00:00 No Maylin M [place] Drama Critic [address] [facility] Docusate Sodium (Colace) 100 Mg Capsule, 100 Mg Oral D ocusate Sodium (Colace) 100 Mg Capsule, 100 Mg Oral 2017-09-09 00:00:00 2019-05-09 00:00:00 No Maylin M [place] Drama Critic [address] [facility] Guaifenesin/Dextromethorphan (Mucinex Dm Er 600-30 Mg Tablet) 1 Each Tab.er.12h, 1 Each Oral Guaifenesin/Dextromethorphan (Mucinex Dm Er 600-30 Mg Tablet) 1 Each Tab.er.12h, 1 Each Oral 2017-09-09 00:00:00 2019-05-09 00:00:00 No Maylin M [place] Drama Critic 1 Every 12 Hours as needed for Nasal Myron estion [facility] Lorazepam 0.5 Mg Tablet, 0.5 Mg Oral Lorazepam 0.5 Mg Tablet , 0.5 Mg Oral 2017-09-09 00:00:00 2019-05-09 00:00:00 No Maylin M [place] Drama Critic .5 Every 6 Hours as needed for Anxiety [facility] Nifedipine (Nifedipine Er) 30 Mg Tab.er.24, 60 Mg Oral Nifedipine (Nifedipine Er) 30 Mg Tab.er.24, 60 Mg Oral 2017-09-09 00:00:00 2019-05-09 00:00:00 No Maylin M [place] Drama Critic [address] [facility] Sodium Bicarbonate 650 Mg Tablet, 1300 Mg Oral Sodium Bicarbonate 650 Mg Tablet, 1300 Mg Oral 2017-09-09 00:00:00 2019-05-09 00:00:00 No Maylin M [place] N p [address] [facility] amLODIPine (NORVASC) 10 MG tablet 2017-06-30 14:35:34 Yes 10mg Take 10 mg by mouth daily with dinner . [facility] atorvastatin (LIPITOR) 80 MG tablet 2017-06-30 14:35:34 Yes 80mg QD Take 80 mg by mouth nightly . [facility] apixaban (ELIQUIS) 2.5 mg Tab tablet 2017-06-24 00:00:00 Ye s 2.5mg Q.5D Take 1 tablet (2.5 mg total) by mouth 2 (two) times daily. [facility] losartan (COZAAR) 50 MG tablet 2017-06-24 00:00:00 Yes 50mg QD Take 1 tablet (50 mg total) by mouth daily. [facility] Atorvastatin Calcium 20 Mg Tablet Atorvastatin Calcium 20 Mg Tablet Yes [address] [facility] Cyclobenzaprine Hcl (Flexeril) 5 Mg Tablet Cyclobenzap rine Hcl (Flexeril) 5 Mg Tablet Yes [address] [facility] Ferrous Sulfate (Ferosul) 325 Mg Tablet Ferrous Sulfate (Riki osul) 325 Mg Tablet Yes 325 Daily [facility] Metoprolol Succinate 25 Mg Tab.er.24h Metoprolol Succinate 25 Mg Ta b.er.24h Yes [address] [facility] Nifedipine (Nifedipine Er) 30 Mg Tab.er.24 Nifedipine (Nifedipine Er) 30 Mg Tab.er.24 Yes 60 Daily [facility] Quetiapine Fumarate 25 Mg Tablet Quetiapine Fumarate 25 Mg Tablet Yes [address] [facility] Sodium Bicarbonate 650 Mg Tablet Sodium Bicarbonate 650 Mg Tablet Yes [address] [facility] Amiodarone Hcl 200 Mg Tablet, 100 Mg Oral Amiodarone H cl 200 Mg Tablet, 100 Mg Oral 2019-05-09 00:00:00 No [address] [facility] Apixaban , 2.5 Mg Oral Apixaban , 2.5 Mg Oral 2019-05-09 00:00:0 0 No 2.[address] [facility] Ferrous Sulfate 325 Mg Tablet, 325 Mg Oral Ferrous Sul fate 325 Mg Tablet, 325 Mg Oral 2019-05-09 00:00:[address] [facility] Metoprolol Succinate 50 Mg Tab.er.24h, 50 Mg Oral Meto prolol Succinate 50 Mg Tab.er.24h, 50 Mg Oral 2019-05-09 00:00:[address] [facility] Amlodipine Besylate 10 Mg Tablet, 10 Mg Oral Amlodipin e Besylate 10 Mg Tablet, 10 Mg Oral 2017-09-09 00:00:[address] [facility] Aspirin (Aspir 81) 81 Mg Tablet., 81 Mg Oral Aspirin (Aspir 81) 81 Mg Tablet., 81 Mg Oral 2017-09-09 00:00:[address] [facility] Furosemide 40 Mg Tablet, 40 Mg Oral Furosemide 40 Mg Tablet, 40 Mg Oral 2017-09-09 00:00:00 No [address] [facility] Losartan Potassium 50 Mg Tablet, 50 Mg Peg Tube Losart an Potassium 50 Mg Tablet, 50 Mg Peg Tube 2017-09-09 00:00:[address] [facility] Procedures Procedure Date / Time Performed Performing Clinician [facility] e CT of abdomen and pelvis without contrast 2019-07-28 00:00:[address] [facility] CORONARY ART/GRFT ANGIO S&I 2019-05-13 00:00:[address] [facility] Plan of Care Planned Activity Planned Date Details Comments Source Future Scheduled Test 2020-03-17 00:00:00 INFLUENZA VACCINE (#1) [code = INFLUENZA VACCINE (#1)] [facility] Future Scheduled Test 2019-10-16 00:00:00 Hemoglobin A1c steven surement (procedure) [code = 90600246] [facility] Future Scheduled Test 2019 00:00:00 PNEUMOCOCCAL 65+ Y RS (1 of 1 - [id number] PCV13) [code = PNEUMOCOCCAL 65+ YRS (1 of 1 - [id number] PCV13)] [facility] Future Scheduled Test 2018-11-15 00:00:00 MEDICARE ANNUAL WE LLNESS (YEAR 2 or FIRST YEAR if no IPPE) [code = MEDICARE ANNUAL WELLNESS (YEAR 2 or FIRST YEAR if no IPPE)] [facility] Future Scheduled Test 1964-01-24 00:00:00 DIABETIC EYE EXAM [code = DIABETIC EYE EXAM] [facility] Future Scheduled Test 1964-01-24 00:00:00 Urine screening fo r protein (procedure) [code = 433456051] [facility] Future Scheduled Test 1955 00:00:00 Screening for alpesh gnant neoplasm of breast (procedure) [code = 791126307] [facility] Future Scheduled Test 1955 00:00:00 Screening for alpesh gnant neoplasm of colon (procedure) [code = 527061760] [facility] Encounters Start Date/Time End Date/Time Encounter Type Admission Type Attendi [facility] Facility Care Department Encounter ID Source 2019-07-28 21:01:00 2019-07-29 15:39:00 Discharged Inpatient (obs) 1 BENJI MISTRY [facility] [id number] [facility] 2019-05-22 08:23:00 2019-05-22 08:23:00 Outpatient [facility]SE [id number] 2019-05-13 05:56:00 2019-05-13 05:56:00 Registered Surgical Day Care [facility] [id number] [facility] 2018-05-28 14:10:00 2018-06-15 23:59:00 Discharged Recurring [facility] [id number] [facility] 2018-04-16 10:27:00 2018-05-16 23:59:00 Discharged Recurring [facility] [id number] [facility] 2018-03-27 11:34:00 2018-04-15 23:59:00 Discharged Recurring [facility] [id number] [facility] 2018-03-26 09:21:00 2018-03-26 09:21:00 Registered Clinic [facility] [id number] [facility] 2018-02-14 09:51:00 2018-03-16 23:59:00 Discharged Recurring [facility] [id number] [facility] 2018-01-16 11:36:00 2018-02-13 23:59:00 Discharged Recurring [facility] [id number] [facility] 2018-01-15 09:07:00 2018-02-13 23:59:00 Discharged Recurring [facility] [id number] [facility] 2017-12-27 10:18:00 2018-01-13 23:59:00 Discharged Recurring [facility] [id number] [facility] 2018-01-04 12:30:00 2018-01-04 12:30:00 Registered Clinic LINDSEY CASTANO [facility] [id number] [facility] 2017-11-15 12:23:00 2017-11-15 12:23:00 Registered Clinic [facility] [id number] [facility] 2017-10-10 11:25:00 2017-10-10 11:25:00 Registered Clinic DAVID FABIAN [facility] [id number] [facility] 2017-09-13 08:17:00 2017-09-13 08:17:[address] [facility] [id number] [facility] 2017-09-01 14:29:00 2017-09-09 13:28:00 Discharged Inpatient ER JULIO ANTONY [facility] [id number] [facility] 2017-08-16 12:42:00 2017-08-16 12:42:00 [address] [facility] [id number] [facility] 2017-08-15 11:51:00 2017-08-15 11:51:00 Registered Clinic [facility] [id number] [facility] 2017-08-09 13:42:00 2017-08-09 13:42:00 Registered Clinic [facility] [id number] [facility] 2017-08-07 09:58:00 2017-08-07 09:58:00 Registered Clinic DAFNE STEVENSON [facility] [id number] [facility] 2017-07-31 11:03:00 2017-07-31 11:03:00 Registered Clinic [facility] [id number] [facility] 2017-07-26 09:56:00 2017-07-26 09:56:00 Registered Clinic [facility] [id number] [facility] Results Test Description Test Time Test Comments Results Result Comments Source CHEST SINGLE (PORTABLE) 2020-06-09 13:36:[address] [facility] : 1955 Sex: F [facility] [address] [address] Patient Name: CINTIA ROGERS MR #: [id number] : 1955 Age/Sex: 65/F Req #: [id number] Adm Physician: Ordered by: STEPHEN MAC MD Report #: [id number] Location: ER Room/Bed: Procedure: [id number] DX/CHEST SINGLE (PORTABLE) Exam Date: 06/09/20 Exam Time: 1300 REPORT STATUS: Signed TECHNIQUE: Frontal view of the chest. INDICATION: Y FEVER, COUGH [id number] COMPARISON: 09/01/2017 DISCUSSION: Limited evaluation due to portable technique. Lines and hardware: Stable midline sternotomy changes. Heart and mediastinum: Mild central vascular congestion is noted. Stable tortuous thoracic aorta. Lungs and pleura: No focal airspace consolidation. No pleural effusion. No pneumothorax. Soft tissues and bones: No acute abnormality. IMPRESSION: Mild central vascular congestion. Findings could relate to fluid overload or viral infection. No lobar consolidation is noted. S igned by: Gaurav Dominguez MD on 06/09/2020 1:37 PM Dictated By: GAURAV DOMINGUEZ MD 36 Transcribed By: DENNYS on 06/09/201336 COPY TO: STEPHEN MAC MD Bedside Glucose 2019-07-29 15:30:00 Test Item Bedside Glucose (test code = 63647-0) 134 70-120 H Meter ID: [id number] [facility] 2019-07-29 07:52:00* Test Item Value Reference Range Interpretation Comments Sodium Level (test code = 2951-2) 136 136-145 [facility] CenterPotassium [id number] 07:52:00* Test Item Value Reference Range Interpretation Comments Potassium Level (test code = 2823-3) 4.1 3.5-5.1 [facility] CenterChloride [id number] 07:52:00* Test Item Value Reference Range Interpretation Comments Chloride Level (test code = 2075-0) 106 98-107 [facility] CenterCarbon Dioxide [id number] 07:52:00* Test Item Value Reference Range Interpretation Comments Carbon Dioxide Level (test code = 2028-9) 20 22-[address] [facility] CenterAnion [id number] 07:52:00* Test Item Value Reference Range Interpretation Comments Anion Gap (test code = 92609-1) 14.1 8-16 [facility] CenterBlood Urea [id number] 07:52:00* Test Item Value Reference Range Interpretation Comments Blood Urea Nitrogen (test code = 3094-0) 37 7-[address] [facility] CenterCreatinine2020-01-13 07:52:00* Test Item Value Reference Range Interpretation Comments Creatinine (test code = 2160-0) 5.33 0.57-1.[address] CenterBUN/Creatinine [id number] 07:52:00* Test Item Value Reference Range Interpretation Comments BUN/Creatinine Ratio (test code = 3097-3) 7 6-25 [facility] Medical CenterEstimat Glomerular Filtration Rate 2019-07-29 07:52:00* Test Item Value Reference Range Interpretation Comments Estimat Glomerular Filtration Rate (test code = 314731022) 8 >60 L Ranges were taken from the National Kidney Disease Education Program and the [facility] literature.Reference ranges:60 or greater: Tosoxn39-44 ( for 3 consecutive months): Chronic kidney disease 15 or less: Kidney failureSt. Luke's Health – [facility]lor St. Luke's Medical CenterGlucose [id number] 07:52:00* Test Item Value Reference Range Interpretation Comments Glucose Level (test code = QLJ0950) 138 74-[address] CenterCalcium [id number] 07:52:00* Test Item Value Reference Range Interpretation Comments Calcium Level (test code = 14429-3) 8.4 8.4-10.2 [facility] CenterWhite Blood [id number] 07:27:00* Test Item Value Reference Range Interpretation Comments White Blood Count (test code = 6690-2) 11.17 4.8-10.[address] [facility] CenterRed Blood [id number] 07:27:00* Test Item Value Reference Range Interpretation Comments Red Blood Count (test code = 789-8) 3.20 3.6-5.[address] CenterHemoglobin2020-01-13 07:27:00* Test Item Value Reference Range Interpretation Comments Hemoglobin (test code = 65088-0) 10.1 12.0-16.[address] Medical CenterHematocrit2020-01-13 07:27:00* Test Item Value Reference Range Interpretation Comments Hematocrit (test code = 4544-3) 31.8 34.2-44.[address] [facility] Medical CenterMean Corpuscular [id number] 07:27:00* Test Item Value Reference Range Interpretation Comments Mean Corpuscular Volume (test code = 787-2) 99.4 81-[address] [facility] CenterMean Corpuscular [id number] 07:27:00* Test Item Value Reference Range Interpretation Comments Mean Corpuscular Hemoglobin (test code = 785-6) 31.6 28-32 [facility] Medical CenterMean Corpuscular Hemoglobin Concent 2019-07-29 07:27:00* Test Item Value Reference Range Interpretation Comments Mean Corpuscular Hemoglobin Concent (test code = 786-4) 31.8 31-35 [facility] Medical CenterRed Cell Distribution [id number] 07:27:00* Test Item Value Reference Range Interpretation Comments Red Cell Distribution Width (test code = 87334-2) 14.9 11.7 -14.[address] [facility] Medical CenterPlatelet [id number] 07:27:00* Test Item Value Reference Range Interpretation Comments Platelet Count (test code = 777-3) 132 140-[address] [facility] CenterNeutrophils (%) (Auto)2019-07-29 07:27:00 * Test Item Value Reference Range Interpretation Comments Neutrophils (%) (Auto) (test code = 47383-8) 61.5 38.7-80.0 [facility] Medical CenterLymphocytes (%) (Auto)2019-07-29 07:27:00 * Test Item Value Reference Range Interpretation Comments Lymphocytes (%) (Auto) (test code = 736-9) 27.4 18.0-39.1 [facility] CenterMonocytes (%) (Auto)2019-07-29 07:27:00* Test Item Value Reference Range Interpretation Comments Monocytes (%) (Auto) (test code = 5905-5) 8.1 4.4-11.3 [facility] CenterEosinophils (%) (Auto)2019-07-29 07:27:00 * Test Item Value Reference Range Interpretation Comments Eosinophils (%) (Auto) (test code = 713-8) 1.9 0.0-6.0 [facility] CenterBasophils (%) (Auto)2019-07-29 07:27:00* Test Item Value Reference Range Interpretation Comments Basophils (%) (Auto) (test code = 706-2) 0.7 0.0-1.0 [facility] Medical CenterIM GRANULOCYTES %2019-07-29 07:27:00* Test Item Value Reference Range Interpretation Comments IM GRANULOCYTES % (test code = IM GRANULOCYTES %) 0.4 0.0- 1.0 [facility] CenterNeutrophils # (Auto)2019-07-29 07:27:00* Test Item Value Reference Range Interpretation Comments Neutrophils # (Auto) (test code = 751-8) 6.9 2.1-6.9 [facility] Medical CenterLymphocytes # (Auto)2019-07-29 07:27:00* Test Item Value Reference Range Interpretation Comments Lymphocytes # (Auto) (test code = 27083-5) 3.1 1.0-3.2 [facility] CenterMonocytes # (Auto)2019-07-29 07:27:00* Test Item Value Reference Range Interpretation Comments Monocytes # (Auto) (test code = 742-7) 0.9 0.2-0.[address] CenterEosinophils # (Auto)2019-07-29 07:27:00* Test Item Value Reference Range Interpretation Comments Eosinophils # (Auto) (test code = 711-2) 0.2 0.0-0.4 [facility] CenterBasophils # (Auto)2019-07-29 07:27:00* Test Item Value Reference Range Interpretation Comments Basophils # (Auto) (test code = 704-7) 0.1 0.0-0.1 [facility] Medical CenterAbsolute Immature Granulocyte (auto 2019-07-29 07:27:00* Test Item Value Reference Range Interpretation Comments Absolute Immature Granulocyte (auto (vale t code = Absolute Immature Granulocyte (auto) 0.04 0-0.1 [facility] Medical CenterUrine [id number] 21:53:00* Test Item Value Reference Range Interpretation Comments Urine WBC (test code = 5821-4) 0-5 0-5 [facility] Medical CenterUrine [id number] 21:53:00* Test Item Value Reference Range Interpretation Comments Urine RBC (test code = 69469-3) 6-10 0-[address] Medical CenterUrine [id number] 21:53:00* Test Item Value Reference Range Interpretation Comments Urine Bacteria (test code = 02625-2) RARE NONE [facility]'s Medical CenterUrine Epithelial [id number] 21:53:00 * Test Item Value Reference Range Interpretation Comments Urine Epithelial Cells (test code = 31358-3) FEW NONE [facility] Medical CenterUrine [id number] 21:44:00* Test Item Value Reference Range Interpretation Comments Urine Color (test code = 5778-6) YELLOW YELLOW [facility] Medical CenterUrine [id number] 21:44:00* Test Item Value Reference Range Interpretation Comments Urine Clarity (test code = 46071-9) CLEAR CLEAR [facility] Medical CenterUrine Specific [id number] 21:44:00 * Test Item Value Reference Range Interpretation Comments Urine Specific [place] (test code = 5811-5) 1.010 1.010-1.[address] [facility] Medical CenterUrine [id number] 21:44:00* Test Item Value Reference Range Interpretation Comments Urine pH (test code = 17739-4) 7.5 5-7 [facility] Medical CenterUrine Leukocyte [id number] 21:44:00* Test Item Value Reference Range Interpretation Comments Urine Leukocyte Esterase (test code = 5799-2) [facility]GATIVE [facility]IVE [facility] Hmlziue6468-31-23 21:44:00* Test Item Value Reference Range Interpretation Comments Urine Nitrite (test code = 16721-2) NEGATIVE [facility]GATIVE [facility] CenterUrine Guykene9881-89-80 21:44:00* Test Item Value Reference Range Interpretation Comments Urine Protein (test code = 5804-0) 2+ NEGATIVE [facility] CenterUrine Glucose (UA)2019-07-28 21:44:00* Test Item Value Reference Range Interpretation Comments Urine Glucose (UA) (test code = 2349-9) 3+ NEGATIVE [facility] CenterU[facility] Zdfrczv7833-26-41 21:44:00* Test Item Value Reference Range Interpretation Comments Urine Ketones (test code = 57477-3) NEGATIVE NEGATIVE [facility] Yrbhdtenrgjq9219-11-14 21:44:00* Test Item Value Reference Range Interpretation Comments Urine Urobilinogen (test code = 32126-6) 0.2 0.2-1 [facility] CenterU[facility] Xrkwmwgyb8065-44-25 21:44:00* Test Item Value Reference Range Interpretation Comments Urine Bilirubin (test code = 1978-6) NEGATIVE NEGATIVE [facility] Epvat5480-59-47 21:44:00* Test Item Value Reference Range Interpretation Comments Urine Blood (test code = 52604-5) TRACE NEGATIVE H [facility] CampusCT ABDOMEN/PELVIS DV5505-95-07 20:26:00 [facility] [address] [address] Patient Name: CINTIA ROGERS MR #: [id number] : 1955 Age/Sex: 64/F Req #: [id number] Adm Physician: Ordered by: BENJI TORREZ NP Report #: [id number] Location: ER Room/Bed: Procedure: [id number] CT/ CT ABDOMEN/PELVIS WO Exam Date: Exam Time: REPORT STATUS: Signed EXAMINATION: CT of the abdomen and pelvis without contrast. TECHNIQUE: Helical CT images of the abdomen and pelvis were performed from the lung bases to the lesser troch anters. No intravenous contrast was given per protocol. Enteric contrast admi nistered.. Coronal and sagittal reformatted images were obtained.Dose modulat ion, iterative reconstruction, and/or weight based adjustment of the mA/kV was utilized to reduce the radiation dose to as low as reasonably achievable. COMPARISON: None. CLINICAL HISTORY:Abdominal pain DISCUSSION: ABSENCE OF INTRAVENOUS CONTRAST DECREASES SENSITIVITY FOR DETECTION OF FOCAL LESIONS AND VASCULAR PATHOLOGY. ABDOMEN/PELVIS: LOWER THORAX: Unremark able. HEPATOBILIARY:No focal hepatic lesions. No biliary ductal dilation. Cholecystectomy. SPLEEN: No splenomegaly. PANCREAS: No focal masses or ductal dilatation. ADRENALS: No adrenal nodules. KIDNEYS/URETERS: Right extrarenal pelvis. Nonspecific perinephric stranding. PELVIC ORGANS/B LADDER: The bladder is normal. PERITONEUM/RETROPERITONEUM: No free air or fluid. Peritoneal dialysis catheter. LYMPH NODES: No intra-abdominal,retro peritoneal, pelvic or inguinal lymphadenopathy. VESSELS: Vascular calcifi cations. GI TRACT: No distention or wall thickening. BONES AND SOFT TI SSUES: No bony destructive lesions. No soft tissue abnormalities. IMPR ESSION: No acute CT finding. Signed by: Dr. Benoit Lopez M.D. on 8:30 PM Dictated By: BENOIT LOPEZ MD 29 Transcribed By: DENNYS on 07/28/19 COPY TO: BENJI TORREZ NP Total Ehwlvlwkm0858-11-32 19:44:00* Test Item Value Reference Range Interpretation Comments Total Bilirubin (test code = 1975-2) 0.5 0.2-1.2 [facility] CenterAspartate Amino Transf (AST/SGOT) 2019-07-28 19:44:00* Test Item Value Reference Range Interpretation Comments Aspartate Amino Transf (AST/SGOT) (test code = Aspartate Amino Transf (AST/SGOT)) 17 5-34 [facility] CenterAlanine Aminotransferase (ALT/SGPT) 2019-07-28 19:44:00* Test Item Value Reference Range Interpretation Comments Alanine Aminotransferase (ALT/SGPT) (test code = 1742-6) 18 0-55 [facility] CenterTotal Mekqfvz1401-57-19 19:44:00* Test Item Value Reference Range Interpretation Comments Total Protein (test code = 2885-2) 8.3 6.5-8.[address] CenterAlbumin2020-01-12 19:44:00* Test Item Value Reference Range Interpretation Comments Albumin (test code = 1751-7) 3.7 3.5-5.0 [facility] CenterGlobulin2020-01-12 19:44:00* Test Item Value Reference Range Interpretation Comments Globulin (test code = 06130-7) 4.6 2.3-3.[address] CenterAlbumin/Globulin Fhtou4131-92-33 19:44:00 * Test Item Value Reference Range Interpretation Comments Albumin/Globulin Ratio (test code = 1759-0) 0.8 0.8-2.0 [facility] CenterAlkaline Gnlyhsavgxy7659-35-96 19:44:00* Test Item Value Reference Range Interpretation Comments Alkaline Phosphatase (test code = 6768-6) 172 40-[address] [facility] CenterLipase2020-01-12 19:44:00* Test Item Value Reference Range Interpretation Comments Lipase (test code = 3040-3) 30 8-78 [facility] CenterDifferential Total Cells Counted 2019-05-09 21:26:00* Test Item Value Reference Range Interpretation Comments Differential Total Cells Counted (test code = Differen tial Total Cells Counted) 100 [facility] CenterNeutrophils % (Manual)2019-05-09 21:26:00 * Test Item Value Reference Range Interpretation Comments Neutrophils % (Manual) (test code = 04884-1) 70 40-74 [facility] CenterLymphocytes % (Manual)2019-05-09 21:26:00 * Test Item Value Reference Range Interpretation Comments Lymphocytes % (Manual) (test code = 737-7) 14 19-[address] [facility] CenterMonocytes % (Manual)2019-05-09 21:26:00* Test Item Value Reference Range Interpretation Comments Monocytes % (Manual) (test code = 744-3) 9 3.4-9.0 [facility] CenterEosinophils % (Manual)2019-05-09 21:26:00 * Test Item Value Reference Range Interpretation Comments Eosinophils % (Manual) (test code = 714-6) 1 0-7 [facility] CenterMetamyelocytes %2019-05-09 21:26:00* Test Item Value Reference Range Interpretation Comments Metamyelocytes % (test code = 740-1) 2 0-[address] [facility] CenterMyelocytes %2019-05-09 21:26:00* Test Item Value Reference Range Interpretation Comments Myelocytes % (test code = 749-2) 1 0-[address] CenterReactive Acivctjbmyu9422-96-97 21:26:00* Test Item Value Reference Range Interpretation Comments Reactive Lymphocytes (test code = 62426-7) 2 [facility] CenterBlast Cells %2019-05-09 21:26:00* Test Item Value Reference Range Interpretation Comments Blast Cells % (test code = 60468-7) 1 [facility] Medical CenterPlatelet Jgqhxdvh5304-57-03 21:26:00* Test Item Value Reference Range Interpretation Comments Platelet Estimate (test code = 62292-0) SLIGHTLY DECREASED [facility] CenterPlatelet Morphology Oudutxw5087-04-10 21:26:00* Test Item Value Reference Range Interpretation Comments Platelet Morphology Comment (test code = 01906-0) NORMAL [facility] CenterHypochromasia2019-10-24 21:26:00* Test Item Value Reference Range Interpretation Comments Hypochromasia (test code = 728-6) SLIGHT [facility] CenterPoikilocytosis2019-10-24 21:26:00* Test Item Value Reference Range Interpretation Comments Poikilocytosis (test code = 779-9) SLIGHT [facility] CenterAnisocytosis2019-10-24 21:26:00* Test Item Value Reference Range Interpretation Comments Anisocytosis (test code = 702-1) SLIGHT [facility] CenterRed Cell Morphology Gvymiuk3382-38-58 21:26:00* Test Item Value Reference Range Interpretation Comments Red Cell Morphology Comment (test code = 6742-1) NORMAL [facility] CenterCYTOMEGALOVIRUS ANTIBODY, KTP4303-11-53 14:06:00* Test Item Value Reference Range Interpretation Comments CYTOMEGALOVIRUS, IGG (BEAKER) (test code = 3429) Negative Negat yin, Equivocal CMV IgG Result Interpretation: </= 0.8 Al Negative 0.9-1.0 Al Equivocal > /=1.1 Al PositiveCYTOMEGALOVIRUS ANTIBODY, [id number] 11:45:00* Test Item Value Reference Range Interpretation Comments CYTOMEGALOVIRUS IGM ANTIBODY (BEAKER) (test code = 3437) Neg ative Negative, Equivocal CMV IgM Result Interpretation: </= 0.8 Al Negative 0.9-1.0 Al Equivocal > /= 1.1 Al PositiveEBV ANTIBODY, [id number] 11:45:00* Test Item Value Reference Range Interpretation Comments JAGDISH WELLINGTON VIRAL CAPSID ANTIGEN IGG ([employer]intera NetworksAKER) (test code = 3415) Positive Negative, Equivocal A Jagdish Wellington Viral Capsid Antigen IgG Result Interpretation: </= 0.8 Al Negative 0.9-1.0 Al Equivocal >/= 1.1 Al PositiveEBV ANTIBODY, [id number] 11:45:00* Test Item Value Reference Range Interpretation Comments JAGDISH WELLINGTON VIRAL CAPSID ANTIGEN IGM ([employer]inter[employer] NetworksAKER) (test code = 3418) Negative Negative, Equivocal Jagdish Wellington Viral Capsid Antigen IgM Result Interpretation: </= 0.8 Al Negative 0.9-1.0 Al Equivocal >/= 1.1 Al PositiveVARICELLA ZOSTER ANTIBODY, [id number] 11:45:00* Test Item Value Reference Range Interpretation Comments VARICELLA ZOSTER IGG (AL) (BEAKER) (test code = 3197) 4.2 VARICELLA ZOSTER RESULT INTERPRETATIONS: <=0.8 Al Nonreactive: Presumed non-immune to VZV 0.9-1.0 Al Equivocal >=1.1 Al Reactive: Presumed immune to VZVURINE PBYJPQM6141-26-86 11:03:00* Test Item Value Reference Range Interpretation Comments CULTURE ([employer]) (test code = 1095) ESCHERICHIA COLI A >100,000 col/mL Escherichia coli Amikacin (test code = 1) S Ampicillin + Sulbactam (test code = 6) S Aztreonam (test code = 32) S Cefepime (test code = 51) S Cefoxitin (test code = 68) S Ceftazidime (test code = 27) S Ceftriaxone (test code = 52) S Ertapenem (test code = 38) S Gentamicin (test code = 18) S Levofloxacin (test code = 22) S Meropenem (test code = 34) S Nitrofurantoin (test code = 23) S Piperacillin + Tazobactam (test code = 29) S Tetracycline (test code = 2) S Tobramycin (test code = 25) S Trimethoprim + Sulfamethoxazole (test code = 47) S [id number] 11:34:00* Test Item Value Reference Range Interpretation Comments RPR SCREEN ([employer]) (test code = 420) Nonreactive Nonreactive PT/BUII5466-47-20 11:03:00* Test Item Value Reference Range Interpretation Comments PROTIME (BEAKER) (test code = 759) 12.8 seconds 11.7-14.7 Test performed at [facility]. See scanned report. Reference 10.5-15.7 sec INR (BEAKER) (test code = 370) 1.0 <=5.9 PARTIAL THROMBOPLASTIN TIME (BEAKER) (test code = 760) 31.3 seconds 22.5-36.0 Test performed at [facility]. See scanned report. Reference 25.2-33.2 sec RECOMMENDED COUMADIN/WARFARIN INR THERAPY RANGESSTANDARD DOSE: 2.0 - 3.0 Inclu esvin: PROPHYLAXIS for venous thrombosis, systemic embolization; TREATMENT for brandie ous thrombosis and/or pulmonary embolus.HIGH RISK: Target INR is 2.5-3.5 for pat ients with mechanical heart valves.HEMOGLOBIN [id number] 09:22:00* Test Item Value Reference Range Interpretation Comments HEMOGLOBIN A1C (BEAKER) (test code = 368) 5.7 % 4.3-6.1 HEPATITIS B SURFACE [id number] 15:19:00* Test Item Value Reference Range Interpretation Comments HEPATITIS B SURFACE ANTIGEN (2) (BEAKER) (test code = 2585) Nonreactive Nonreactive HEPATITIS B SURFACE [id number] 15:19:00* Test Item Value Reference Range Interpretation Comments HEPATITIS B SURFACE ANTIBODY (BEAKER) (test code = 647) 83.6 mIU/mL <8.0 H HEPATITIS B CORE ANTIBODY, [id number] 15:19:00* Test Item Value Reference Range Interpretation Comments HEPATITIS B CORE IGM ANTIBODY (BEAKER) (test code = 645) Non reactive Nonreactive HEPATITIS C [id number] 15:19:00* Test Item Value Reference Range Interpretation Comments HEPATITIS C ANTIBODY (BEAKER) (test code = 367) Nonreactive Nonrea ctive HIV-1 ANTIGEN WITH HIV-1/2 LHWDFTKP7172-40-88 15:19:00* Test Item Value Reference Range Interpretation Comments HIV-1 ANTIGEN WITH HIV 1\T\2 ANTIBODY (2) (BEAKER) (te st code = 2586) Nonreactive Nonreactive COMPREHENSIVE METABOLIC ERJOM9286-73-79 15:14:00* Test Item Value Reference Range Interpretation Comments TOTAL PROTEIN (BEAKER) (test code = 770) 8.6 gm/dL 6.0-8.3 H ALBUMIN (BEAKER) (test code = 1145) 4.1 g/dL 3.5-5.0 ALKALINE PHOSPHATASE (BEAKER) (test code = 346) 153 U/L 40-150 H BILIRUBIN TOTAL (BEAKER) (test code = 377) 0.5 mg/dL 0.2-1.2 SODIUM (BEAKER) (test code = 381) 140 meq/L 136-145 POTASSIUM (BEAKER) (test code = 379) 3.5 meq/L 3.5-5.1 CHLORIDE (BEAKER) (test code = 382) 97 meq/L 98-107 L CO2 (BEAKER) (test code = 355) 29 meq/L 22-29 BLOOD UREA NITROGEN (BEAKER) (test code = 354) 35 mg/dL 7-21 H CREATININE (BEAKER) (test code = 358) 4.13 mg/dL 0.57-1.25 H GLUCOSE RANDOM (BEAKER) (test code = 652) 117 mg/dL 70-105 H CALCIUM (BEAKER) (test code = 697) 9.7 mg/dL 8.4-10.2 AST (SGOT) (BEAKER) (test code = 353) 15 U/L 5-34 ALT (SGPT) (BEAKER) (test code = 347) 15 U/L 6-55 EGFR (BEAKER) (test code = 1092) 11 mL/min/1.73 sq m ESTIMATED GFR IS NOT ACCURATE CREATININE CLEARANCE IN PREDICTING GLOMERULAR FILTRATION RATE. ESTIMATED GFR IS NOT APPLICABLE FOR DIALYSIS PATIENTS. URIC [id number] 15:06:00* Test Item Value Reference Range Interpretation Comments URIC ACID (BEAKER) (test code = 773) 4.7 mg/dL 2.6-7.2 [id number] 15:06:00* Test Item Value Reference Range Interpretation Comments PHOSPHORUS (BEAKER) (test code = 604) 3.8 mg/dL 2.3-4.7 GAMMA GLUTAMYL TRANSFERASE (GGT)2019-04-16 15:06:00* Test Item Value Reference Range Interpretation Comments GAMMA GLUTAMYL TRANSFERASE (BEAKER) (test code = 364) 27 U/L 9-64 LACTATE DEHYDROGENASE (LDH)2019-04-16 15:06:00* Test Item Value Reference Range Interpretation Comments LACTATE DEHYDROGENASE (BEAKER) (test code = 635) 213 U/L 125-2 20 PTH, [id number] 15:04:00* Test Item Value Reference Range Interpretation Comments PARATHYROID HORMONE INTACT (BEAKER) (test code = 577) 289.9 pg/mL 8.5-72.5 H CBC W/PLT COUNT & AUTO [id number] 14:36:00* Test Item Value Reference Range Interpretation Comments WHITE BLOOD CELL COUNT (BEAKER) (test code = 775) 7.0 K/ L 3.5- 10.5 RED BLOOD CELL COUNT (BEAKER) (test code = 761) 3.90 M/ L 3.93-5 .22 L HEMOGLOBIN (BEAKER) (test code = 410) 12.1 GM/DL 11.2-15.7 HEMATOCRIT (BEAKER) (test code = 411) 38.2 % 34.1-44.9 MEAN CORPUSCULAR VOLUME (BEAKER) (test code = 753) 97.9 fL 79. 4-94.8 H MEAN CORPUSCULAR HEMOGLOBIN (BEAKER) (test code = 751) 31.0 pg 25.6-32.2 MEAN CORPUSCULAR HEMOGLOBIN CONC (BEAKER) (test code = 752) 31.7 GM/DL 32.2-35.5 L RED CELL DISTRIBUTION WIDTH (BEAKER) (test code = 412) 14.9 % 11.7-14.4 H PLATELET COUNT (BEAKER) (test code = 756) 176 K/CU MM 150-450 MEAN PLATELET VOLUME (BEAKER) (test code = 754) 11.0 fL 9.4-12 .3 NUCLEATED RED BLOOD CELLS (BEAKER) (test code = 413) 0 /100 WBC 0 -0 NEUTROPHILS RELATIVE PERCENT (BEAKER) (test code = 429) 58 % LYMPHOCYTES RELATIVE PERCENT (BEAKER) (test code = 430) 28 % MONOCYTES RELATIVE PERCENT (BEAKER) (test code = 431) 7 % EOSINOPHILS RELATIVE PERCENT (BEAKER) (test code = 432) 5 % BASOPHILS RELATIVE PERCENT (BEAKER) (test code = 437) 1 % NEUTROPHILS ABSOLUTE COUNT (BEAKER) (test code = 670) 4.09 K/ L 1.56-6.13 LYMPHOCYTES ABSOLUTE COUNT (BEAKER) (test code = 414) 1.99 K/ L 1.18-3.74 MONOCYTES ABSOLUTE COUNT (BEAKER) (test code = 415) 0.49 K/ L 0. 24-0.36 H EOSINOPHILS ABSOLUTE COUNT (BEAKER) (test code = 416) 0.33 K/ L 0.04-0.36 BASOPHILS ABSOLUTE COUNT (BEAKER) (test code = 417) 0.08 K/ L 0. 01-0.08 IMMATURE GRANULOCYTES-RELATIVE PERCENT (BEAKER) (test code = 2801) 0 % 0-1 Bedside Qgxvnpt9301-47-75 12:07:00* Test Item Value Reference Range Interpretation Comments Bedside Glucose (test code = 46211-4) 147 70-120 H Meter ID: [id number] [facility] Glucose 2018-04-13 13:05:00* Test Item Value Reference Range Interpretation Comments Bedside Glucose (test code = 15672-7) 181 70-120 H Meter ID: [id number] [facility] Glucose 2018-03-14 14:46:00* Test Item Value Reference Range Interpretation Comments Bedside Glucose (test code = 26013-1) 154 70-120 H Meter ID: [id number] [facility] Glucose 2018-02-13 14:28:00* Test Item Value Reference Range Interpretation Comments Bedside Glucose (test code = 84817-2) 143 70-120 H Meter ID: [id number] [facility] Glucose 2018-02-13 14:28:00* Test Item Value Reference Range Interpretation Comments Bedside Glucose (test code = 97605-0) 143 70-120 H Meter ID: [id number] [facility] Glucose 2018-01-12 11:32:00* Test Item Value Reference Range Interpretation Comments Bedside Glucose (test code = 21703-0) 194 70-120 H Meter ID: [id number] [facility]CH[facility] VIEWS 2018-01-04 13:47:[address] [address] Patient Name: CINTIA ROGERS MR #: [id number] : 1955 Age/Sex: 62/F Req #: [id number] Adm Physician: Ordered by: LINDSEY RECIO MD Report #: [id number] Location: [facility] Room/Bed: Procedure: [id number] DX/CHEST 2 VIEWS Exam Date: Exam Time: 1259 REPORT STATUS: Signed PROCEDURE: CHEST 2 VIEWS TECHNIQUE: PA and lateral chest INDICATION: S hortness of breath COMPARISON: None. FINDINGS: Lungs are clear and s ymmetrically inflated. No pleural effusions. Normal heart size. 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 Intact skeleton. CONCL USION: No acute abnormality. Specifically, no evidence of pulmonary edema. Dictated by: Kina Montez M.D. on 01/04/2018 at 13:47 E lectronically approved by: Kina Montez M.D. on 01/04/2018 at 13:47 Dictated By: KINA MONTEZ MD 1347 Transcribed By: TYRELL on 01/04/18 1347 COPY TO: LINDSEY RECIO MD Hepatitis A IgM Hmvxpcjb7256-90-14 13:27:00* Test Item Value Reference Range Interpretation Comments Hepatitis A IgM Antibody (test code = 90241-9) Negative [facility] B Surface Npbefnc7056-64-24 13:27:00* Test Item Value Reference Range Interpretation Comments Hepatitis B Surface Antigen (test code = 5196-1) Negative [facility] B Core IgM Yprcjykk6807-44-50 13:27:00* Test Item Value Reference Range Interpretation Comments Hepatitis B Core IgM Antibody (test code = 51845-5) Negative [facility] C Ifzkysrb3083-02-94 13:27:00* Test Item Value Reference Range Interpretation Comments Hepatitis C Antibody (test code = 59256-4) 0.3 Reference Range: 0.0 - 0.9 s/co ratioNegative: < 0.8Indeterminate: 0.8 - 0.9Positive: > 0.9The CDC recommends that a positive HCV antibody resultbe followed up with a HCV Nucleic Acid Amplificationtest (753949).Testing performed by:[facility] [place], [place] [phone]: [place] [facility] A IgM Szhscyvf0379-06-05 13:27:00* Test Item Value Reference Range Interpretation Comments Hepatitis A IgM Antibody (test code = 17054-6) Negative [facility] B Surface Popgsxa4389-83-26 13:27:00* Test Item Value Reference Range Interpretation Comments Hepatitis B Surface Antigen (test code = 5196-1) Negative [facility] B Core IgM Foegasim2549-59-72 13:27:00* Test Item Value Reference Range Interpretation Comments Hepatitis B Core IgM Antibody (test code = 11043-5) Negative [facility] C Ceqrlifb3020-67-69 13:27:00* Test Item Value Reference Range Interpretation Comments Hepatitis C Antibody (test code = 59080-6) 0.3 Reference Range: 0.0 - 0.9 s/co ratioNegative: < 0.8Indeterminate: 0.8 - 0.9Positive: > 0.9The CDC recommends that a positive HCV antibody resultbe followed up with a HCV Nucleic Acid Amplificationtest (884408).Testing performed by:[facility] [place], [place] [phone]: [facility] A IgM Xamjevur2822-44-17 13:27:00* Test Item Value Reference Range Interpretation Comments Hepatitis A IgM Antibody (test code = 79359-9) Negative [facility] B Surface Rwtujbh3272-15-96 13:27:00* Test Item Value Reference Range Interpretation Comments Hepatitis B Surface Antigen (test code = 5196-1) Negative [facility] B Core IgM Boafrzmt1906-80-33 13:27:00* Test Item Value Reference Range Interpretation Comments Hepatitis B Core IgM Antibody (test code = 99007-1) Negative [facility] C Hzhnbruk3635-51-17 13:27:00* Test Item Value Reference Range Interpretation Comments Hepatitis C Antibody (test code = 11085-4) 0.3 Reference Range: 0.0 - 0.9 s/co ratioNegative: < 0.8Indeterminate: 0.8 - 0.9Positive: > 0.9The CDC recommends that a positive HCV antibody resultbe followed up with a HCV Nucleic Acid Amplificationtest (557735).Testing performed by:[address] [phone]: [place] [facility] A IgM Korzoxpm0105-83-23 13:27:00* Test Item Value Reference Range Interpretation Comments Hepatitis A IgM Antibody (test code = 09503-2) Negative [facility] B Surface Khvsdtj2742-53-05 13:27:00* Test Item Value Reference Range Interpretation Comments Hepatitis B Surface Antigen (test code = 5196-1) Negative [facility] B Core IgM Yhhkrdvl1426-57-07 13:27:00* Test Item Value Reference Range Interpretation Comments Hepatitis B Core IgM Antibody (test code = 80683-2) Negative [facility] C Kljvmdtq9855-52-36 13:27:00* Test Item Value Reference Range Interpretation Comments Hepatitis C Antibody (test code = 76110-7) 0.3 Reference Range: 0.0 - 0.9 s/co ratioNegative: < 0.8Indeterminate: 0.8 - 0.9Positive: > 0.9The CDC recommends that a positive HCV antibody resultbe followed up with a HCV Nucleic Acid Amplificationtest (311948).Testing performed by:[employer] [address] [place], [place] [phone]: [facility] A IgM Jylwujbe8934-59-36 13:27:00* Test Item Value Reference Range Interpretation Comments Hepatitis A IgM Antibody (test code = 80881-1) Negative [facility] B Surface Vaenqyf7674-61-78 13:27:00* Test Item Value Reference Range Interpretation Comments Hepatitis B Surface Antigen (test code = 5196-1) Negative [facility] B Core IgM Tzbgabix8686-15-37 13:27:00* Test Item Value Reference Range Interpretation Comments Hepatitis B Core IgM Antibody (test code = 45911-0) Negative [facility] C Xkbeurjr2716-20-09 13:27:00* Test Item Value Reference Range Interpretation Comments Hepatitis C Antibody (test code = 77313-1) 0.3 Reference Range: 0.0 - 0.9 s/co ratioNegative: < 0.8Indeterminate: 0.8 - 0.9Positive: > 0.9The CDC recommends that a positive HCV antibody resultbe followed up with a HCV Nucleic Acid Amplificationtest (424999).Testing performed by:[employer] [address] [place], [place] [phone]: [facility] A IgM Oqyntfbr7516-05-77 13:27:00* Test Item Value Reference Range Interpretation Comments Hepatitis A IgM Antibody (test code = 70303-9) Negative [facility] B Surface Kumhfea2977-89-68 13:27:00* Test Item Value Reference Range Interpretation Comments Hepatitis B Surface Antigen (test code = 5196-1) Negative [facility] B Core IgM Ehfjiwhb4029-14-32 13:27:00* Test Item Value Reference Range Interpretation Comments Hepatitis B Core IgM Antibody (test code = 91668-5) Negative [facility] C Ghyehjow0388-69-11 13:27:00* Test Item Value Reference Range Interpretation Comments Hepatitis C Antibody (test code = 06510-5) 0.3 Reference Range: 0.0 - 0.9 s/co ratioNegative: < 0.8Indeterminate: 0.8 - 0.9Positive: > 0.9The CDC recommends that a positive HCV antibody resultbe followed up with a HCV Nucleic Acid Amplificationtest (981380).Testing performed by:LabAmpio PharmaceuticalsPrisma Health Hillcrest HospitalWlcgtuc[address] [place], [place] [phone]: [facility]villeBedside Fndqpgk6042-72-81 11:55:00* Test Item Value Reference Range Interpretation Comments Bedside Glucose (test code = 03101-6) 151 70-120 H Meter ID: [id number] Memorial Hospitalodium Level 2017-09-09 06:31:00* Test Item Value Reference Range Interpretation Comments Sodium Level (test code = 2951-2) 138 136-145 [facility] CenterPotassium Gsbiu6897-30-13 06:31:00* Test Item Value Reference Range Interpretation Comments Potassium Level (test code = 2823-3) 4.1 3.5-5.1 [facility] CenterChloride Uomgv9614-56-36 06:31:00* Test Item Value Reference Range Interpretation Comments Chloride Level (test code = 2075-0) 103 98-107 [facility] CenterCarbon Dioxide Ofppq6739-14-83 06:31:00* Test Item Value Reference Range Interpretation Comments Carbon Dioxide Level (test code = 2028-9) 26 22-29 [facility] CenterAnion Nit2626-73-10 06:31:00* Test Item Value Reference Range Interpretation Comments Anion Gap (test code = 76889-6) 13.1 8-16 [facility] CenterBlood Urea Sprdhzuh2720-78-59 06:31:00* Test Item Value Reference Range Interpretation Comments Blood Urea Nitrogen (test code = 3094-0) 21 7-26 [facility] CenterCreatinine2018-02-24 06:31:00* Test Item Value Reference Range Interpretation Comments Creatinine (test code = 2160-0) 2.74 0.57-1.[address] [facility] CenterBUN/Creatinine Hdbvy8724-51-72 06:31:00* Test Item Value Reference Range Interpretation Comments BUN/Creatinine Ratio (test code = 3097-3) 8 6-25 [facility] CenterEstimat Glomerular Filtration Rate 2017-09-09 06:31:00* Test Item Value Reference Range Interpretation Comments Estimat Glomerular Filtration Rate (test code = 90606-2) 17 >60 L Ranges were taken from the National Kidney Disease Education Program and the Pending sale to [facility] literature.Reference ranges:60 or greater: Gspear12-87 ( for 3 consecutive months): Chronic kidney disease 15 or less: Kidney failureSt. [facility] CenterGlucose Nzsje1589-66-85 06:31:00* Test Item Value Reference Range Interpretation Comments Glucose Level (test code = YHS8111) 118 74-118 [facility] CenterCalcium Xuboi1171-91-41 06:31:00* Test Item Value Reference Range Interpretation Comments Calcium Level (test code = 52993-6) 8.3 8.4-10.2 L [facility]odium Rgovj7547-45-75 06:31:00* Test Item Value Reference Range Interpretation Comments Sodium Level (test code = 2951-2) 138 136-145 [facility] CenterPotassium Nsbrv3259-63-27 06:31:00* Test Item Value Reference Range Interpretation Comments Potassium Level (test code = 2823-3) 4.1 3.5-5.1 [facility] CenterChloride Tqqbh0916-97-37 06:31:00* Test Item Value Reference Range Interpretation Comments Chloride Level (test code = 2075-0) 103 98-107 [facility] CenterCarbon Dioxide Bhweu0917-88-65 06:31:00* Test Item Value Reference Range Interpretation Comments Carbon Dioxide Level (test code = 2028-9) 26 22-29 [facility] CenterAnion Jxp4068-32-63 06:31:00* Test Item Value Reference Range Interpretation Comments Anion Gap (test code = 07577-2) 13.1 8-16 [facility] CenterBlood Urea Ptutfdek0980-95-85 06:31:00* Test Item Value Reference Range Interpretation Comments Blood Urea Nitrogen (test code = 3094-0) 21 7-26 [facility] CenterCreatinine2018-02-24 06:31:00* Test Item Value Reference Range Interpretation Comments Creatinine (test code = 2160-0) 2.74 0.57-1.[address] [facility] CenterBUN/Creatinine Riwjz5727-51-32 06:31:00* Test Item Value Reference Range Interpretation Comments BUN/Creatinine Ratio (test code = 3097-3) 8 6- [facility] Medical CenterEstimat Glomerular Filtration Rate 2017-09-09 06:31:00* Test Item Value Reference Range Interpretation Comments Estimat Glomerular Filtration Rate (test code = 64689-5) 17 >60 L Ranges were taken from the National Kidney Disease Education Program and the Pending sale to [facility] literature.Reference ranges:60 or greater: Wicwjy55-68 ( for 3 consecutive months): Chronic kidney disease 15 or less: Kidney failureSt. Luke's [facility] Medical CenterGlucose Tipwb0562-43-58 06:31:00* Test Item Value Reference Range Interpretation Comments Glucose Level (test code = ODK0339) 118 74-118 [facility] CenterCalcium Pxftc6024-78-12 06:31:00* Test Item Value Reference Range Interpretation Comments Calcium Level (test code = 14829-1) 8.3 8.4-10.2 L [facility] Hospitalodium Dbgbl3299-42-75 06:31:00* Test Item Value Reference Range Interpretation Comments Sodium Level (test code = 2951-2) 138 136-145 [facility] CenterPotassium Txkrb2372-85-42 06:31:00* Test Item Value Reference Range Interpretation Comments Potassium Level (test code = 2823-3) 4.1 3.5-5.1 [facility] CenterChloride Xsbzq0903-75-21 06:31:00* Test Item Value Reference Range Interpretation Comments Chloride Level (test code = 2075-0) 103 98-107 [facility] CenterCarbon Dioxide Xuevk1236-95-47 06:31:00* Test Item Value Reference Range Interpretation Comments Carbon Dioxide Level (test code = 2028-9) 26 22-29 [facility] CenterAnion Hsy6337-68-77 06:31:00* Test Item Value Reference Range Interpretation Comments Anion Gap (test code = 94054-7) 13.1 8-16 [facility] CenterBlood Urea Cstulbga6499-41-65 06:31:00* Test Item Value Reference Range Interpretation Comments Blood Urea Nitrogen (test code = 3094-0) 21 7-26 [facility] CenterCreatinine2018-02-24 06:31:00* Test Item Value Reference Range Interpretation Comments Creatinine (test code = 2160-0) 2.74 0.57-1.[address] [facility] CenterBUN/Creatinine Grqre7434-12-68 06:31:00* Test Item Value Reference Range Interpretation Comments BUN/Creatinine Ratio (test code = 3097-3) 8 6-25 [facility] CenterEstimat Glomerular Filtration Rate 2017-09-09 06:31:00* Test Item Value Reference Range Interpretation Comments Estimat Glomerular Filtration Rate (test code = 99384-6) 17 >60 L Ranges were taken from the National Kidney Disease Education Program and the [facility] literature.Reference ranges:60 or greater: Wlhdpd25-01 ( for 3 consecutive months): Chronic kidney disease 15 or less: Kidney failureSt. Luke's [facility] Medical CenterGlucose Lmqqj9341-43-87 06:31:00* Test Item Value Reference Range Interpretation Comments Glucose Level (test code = QNT9579) 118 74-118 [facility] CenterCalcium Bvqml3324-46-28 06:31:00* Test Item Value Reference Range Interpretation Comments Calcium Level (test code = 04101-2) 8.3 8.4-10.2 L [facility] Hospitalodium Koqnb5547-39-52 06:31:00* Test Item Value Reference Range Interpretation Comments Sodium Level (test code = 2951-2) 138 136-145 [facility] CenterPotassium Libqj8231-46-87 06:31:00* Test Item Value Reference Range Interpretation Comments Potassium Level (test code = 2823-3) 4.1 3.5-5.1 [facility] CenterChloride Ddwym0366-15-11 06:31:00* Test Item Value Reference Range Interpretation Comments Chloride Level (test code = 2075-0) 103 98-107 [facility] CenterCarbon Dioxide Aatkq4789-59-65 06:31:00* Test Item Value Reference Range Interpretation Comments Carbon Dioxide Level (test code = 2028-9) 26 22-29 [facility] CenterAnion Pkw3013-08-52 06:31:00* Test Item Value Reference Range Interpretation Comments Anion Gap (test code = 37853-8) 13.1 8-16 [facility] CenterBlood Urea Mffiigcj5334-97-23 06:31:00* Test Item Value Reference Range Interpretation Comments Blood Urea Nitrogen (test code = 3094-0) 21 7-26 [facility] CenterCreatinine2018-02-24 06:31:00* Test Item Value Reference Range Interpretation Comments Creatinine (test code = 2160-0) 2.74 0.57-1.[address] [facility] CenterBUN/Creatinine Bbdsg3663-58-58 06:31:00* Test Item Value Reference Range Interpretation Comments BUN/Creatinine Ratio (test code = 3097-3) 8 6-25 [facility] CenterEstimat Glomerular Filtration Rate 2017-09-09 06:31:00* Test Item Value Reference Range Interpretation Comments Estimat Glomerular Filtration Rate (test code = 20162-1) 17 >60 L Ranges were taken from the National Kidney Disease Education Program and the [facility] literature.Reference ranges:60 or greater: Vvniyt86-09 ( for 3 consecutive months): Chronic kidney disease 15 or less: Kidney failureSt. Luke[facility] Medical CenterGlucose Wgbuk4987-18-51 06:31:00* Test Item Value Reference Range Interpretation Comments Glucose Level (test code = DCL9891) 118 74-118 [facility] CenterCalcium Uvyxg9786-86-09 06:31:00* Test Item Value Reference Range Interpretation Comments Calcium Level (test code = 45400-7) 8.3 8.4-10.2 L [facility] Hospitalodium Xadrm9603-55-04 06:31:00* Test Item Value Reference Range Interpretation Comments Sodium Level (test code = 2951-2) 138 136-145 [facility] CenterPotassium Pkwab4409-20-01 06:31:00* Test Item Value Reference Range Interpretation Comments Potassium Level (test code = 2823-3) 4.1 3.5-5.1 [facility] CenterChloride Ecsxc7628-66-07 06:31:00* Test Item Value Reference Range Interpretation Comments Chloride Level (test code = 2075-0) 103 98-107 [facility] CenterCarbon Dioxide Kbjmf7574-33-05 06:31:00* Test Item Value Reference Range Interpretation Comments Carbon Dioxide Level (test code = 2028-9) 26 22-29 [facility] CenterAnion Gyr3787-33-60 06:31:00* Test Item Value Reference Range Interpretation Comments Anion Gap (test code = 59562-9) 13.1 8-16 [facility] CenterBlood Urea Biqemukx0290-52-27 06:31:00* Test Item Value Reference Range Interpretation Comments Blood Urea Nitrogen (test code = 3094-0) 21 7-26 [facility] CenterCreatinine2018-02-24 06:31:00* Test Item Value Reference Range Interpretation Comments Creatinine (test code = 2160-0) 2.74 0.57-1.[address] [facility] CenterBUN/Creatinine Schgf8771-51-02 06:31:00* Test Item Value Reference Range Interpretation Comments BUN/Creatinine Ratio (test code = 3097-3) 8 6-25 [facility] CenterEstimat Glomerular Filtration Rate 2017-09-09 06:31:00* Test Item Value Reference Range Interpretation Comments Estimat Glomerular Filtration Rate (test code = 02872-1) 17 >60 L Ranges were taken from the National Kidney Disease Education Program and the [facility] [facility] literature.Reference ranges:60 or greater: Pmofcq48-46 ( for 3 consecutive months): Chronic kidney disease 15 or less: Kidney failureSt. Luke[facility] Medical CenterGlucose Tdcwa5842-11-26 06:31:00* Test Item Value Reference Range Interpretation Comments Glucose Level (test code = MYI6638) 118 74-118 [facility] CenterCalcium Xkkwv9481-17-77 06:31:00* Test Item Value Reference Range Interpretation Comments Calcium Level (test code = 76593-6) 8.3 8.4-10.2 L [facility] Hospitalodium Xvmqc6020-06-01 06:31:00* Test Item Value Reference Range Interpretation Comments Sodium Level (test code = 2951-2) 138 136-145 [facility] CenterPotassium Ujdgr7546-83-80 06:31:00* Test Item Value Reference Range Interpretation Comments Potassium Level (test code = 2823-3) 4.1 3.5-5.1 [facility] CenterChloride Lbcrc1169-68-59 06:31:00* Test Item Value Reference Range Interpretation Comments Chloride Level (test code = 2075-0) 103 98-107 [facility] CenterCarbon Dioxide Yqkkw3268-24-43 06:31:00* Test Item Value Reference Range Interpretation Comments Carbon Dioxide Level (test code = 2028-9) 26 22-29 [facility] CenterAnion Bby3196-92-17 06:31:00* Test Item Value Reference Range Interpretation Comments Anion Gap (test code = 66120-8) 13.1 8-16 [facility] CenterBlood Urea Gcnyoilk7977-12-67 06:31:00* Test Item Value Reference Range Interpretation Comments Blood Urea Nitrogen (test code = 3094-0) 21 7-26 [facility] CenterCreatinine2018-02-24 06:31:00* Test Item Value Reference Range Interpretation Comments Creatinine (test code = 2160-0) 2.74 0.57-1.[address] CenterBUN/Creatinine Yndlv8018-22-20 06:31:00* Test Item Value Reference Range Interpretation Comments BUN/Creatinine Ratio (test code = 3097-3) 8 6-25 [facility] CenterEstimat Glomerular Filtration Rate 2017-09-09 06:31:00* Test Item Value Reference Range Interpretation Comments Estimat Glomerular Filtration Rate (test code = 937965658) 17 >60 L Ranges were taken from the National Kidney Disease Education Program and the Pending sale to [facility] literature.Reference ranges:60 or greater: Zlwoes52-27 ( for 3 consecutive months): Chronic kidney disease 15 or less: Kidney failureSt. [facility] Medical CenterGlucose Pykku4907-90-74 06:31:00* Test Item Value Reference Range Interpretation Comments Glucose Level (test code = CWC2233) 118 74-118 [facility] CenterCalcium Hhxus1453-94-73 06:31:00* Test Item Value Reference Range Interpretation Comments Calcium Level (test code = 71393-0) 8.3 8.4-10.2 L [facility] Hospitalodium Spvex0356-62-40 06:31:00* Test Item Value Reference Range Interpretation Comments Sodium Level (test code = 2951-2) 138 136-145 [facility] CenterPotassium Efjmi5031-22-97 06:31:00* Test Item Value Reference Range Interpretation Comments Potassium Level (test code = 2823-3) 4.1 3.5-5.1 [facility] CenterChloride Cvvrf5933-19-40 06:31:00* Test Item Value Reference Range Interpretation Comments Chloride Level (test code = 2075-0) 103 98-107 [facility] CenterCarbon Dioxide Gddfg3189-93-73 06:31:00* Test Item Value Reference Range Interpretation Comments Carbon Dioxide Level (test code = 2028-9) 26 22-29 [facility] CenterAnion Ekp6793-40-63 06:31:00* Test Item Value Reference Range Interpretation Comments Anion Gap (test code = 97534-5) 13.1 8-16 [facility] CenterBlood Urea Starmogs5668-29-56 06:31:00* Test Item Value Reference Range Interpretation Comments Blood Urea Nitrogen (test code = 3094-0) 21 7-26 [facility] CenterCreatinine2018-02-24 06:31:00* Test Item Value Reference Range Interpretation Comments Creatinine (test code = 2160-0) 2.74 0.57-1.[address] CenterBUN/Creatinine Yabtb0865-54-52 06:31:00* Test Item Value Reference Range Interpretation Comments BUN/Creatinine Ratio (test code = 3097-3) 8 6-25 [facility] CenterEstimat Glomerular Filtration Rate 2017-09-09 06:31:00* Test Item Value Reference Range Interpretation Comments Estimat Glomerular Filtration Rate (test code = 183521145) 17 >60 L Ranges were taken from the National Kidney Disease Education Program and the Pending sale to [facility] literature.Reference ranges:60 or greater: Abpnny87-62 ( for 3 consecutive months): Chronic kidney disease 15 or less: Kidney failureSt. [facility] Medical CenterGlucose Azyiu8515-18-91 06:31:00* Test Item Value Reference Range Interpretation Comments Glucose Level (test code = ZIJ5229) 118 74-118 [facility] CenterCalcium Jzugb8062-35-90 06:31:00* Test Item Value Reference Range Interpretation Comments Calcium Level (test code = 59268-8) 8.3 8.4-10.[address] [facility] CenterWhite Blood Wvaaj0248-15-18 06:14:00* Test Item Value Reference Range Interpretation Comments White Blood Count (test code = 6690-2) 8.27 4.8-10.8 [facility] Medical CenterRed Blood Tvfyh3026-80-48 06:14:00* Test Item Value Reference Range Interpretation Comments Red Blood Count (test code = 789-8) 3.12 3.6-5.[address] CenterHemoglobin2018-02-24 06:14:00* Test Item Value Reference Range Interpretation Comments Hemoglobin (test code = 19697-8) 8.0 12.0-16.[address] CenterHematocrit2018-02-24 06:14:00* Test Item Value Reference Range Interpretation Comments Hematocrit (test code = 4544-3) 26.7 34.2-44.[address] [facility] CenterMean Corpuscular Tjinhv4500-18-39 06:14:00* Test Item Value Reference Range Interpretation Comments Mean Corpuscular Volume (test code = 787-2) 85.6 81-99 [facility] CenterMean Corpuscular Ouujibxiqa9496-17-16 06:14:00* Test Item Value Reference Range Interpretation Comments Mean Corpuscular Hemoglobin (test code = 785-6) 25.6 28-[address] [facility] CenterMean Corpuscular Hemoglobin Concent 2017-09-09 06:14:00* Test Item Value Reference Range Interpretation Comments Mean Corpuscular Hemoglobin Concent (test code = 786-4) 30.0 31-[address] [facility] CenterRed Cell Distribution Xhgao7380-12-97 06:14:00* Test Item Value Reference Range Interpretation Comments Red Cell Distribution Width (test code = 88443-9) 15.6 11.7 -14.[address] [facility] Medical CenterPlatelet Kcmli2853-09-32 06:14:00* Test Item Value Reference Range Interpretation Comments Platelet Count (test code = 777-3) 150 140-360 [facility] CenterNeutrophils (%) (Auto)2017-09-09 06:14:00 * Test Item Value Reference Range Interpretation Comments Neutrophils (%) (Auto) (test code = 97139-4) 66.4 38.7-80.0 [facility] CenterLymphocytes (%) (Auto)2017-09-09 06:14:00 * Test Item Value Reference Range Interpretation Comments Lymphocytes (%) (Auto) (test code = 736-9) 12.9 18.0-39.[address] CenterMonocytes (%) (Auto)2017-09-09 06:14:00* Test Item Value Reference Range Interpretation Comments Monocytes (%) (Auto) (test code = 5905-5) 8.8 4.4-11.3 [facility] CenterEosinophils (%) (Auto)2017-09-09 06:14:00 * Test Item Value Reference Range Interpretation Comments Eosinophils (%) (Auto) (test code = 713-8) 10.9 0.0-6.[address] CenterBasophils (%) (Auto)2017-09-09 06:14:00* Test Item Value Reference Range Interpretation Comments Basophils (%) (Auto) (test code = 706-2) 0.8 0.0-1.0 [facility] CenterIM GRANULOCYTES %2017-09-09 06:14:00* Test Item Value Reference Range Interpretation Comments IM GRANULOCYTES % (test code = IM GRANULOCYTES %) 0.2 0.0- 1.0 [facility] CenterNeutrophils # (Auto)2017-09-09 06:14:00* Test Item Value Reference Range Interpretation Comments Neutrophils # (Auto) (test code = 751-8) 5.5 2.1-6.9 [facility] CenterLymphocytes # (Auto)2017-09-09 06:14:00* Test Item Value Reference Range Interpretation Comments Lymphocytes # (Auto) (test code = 08401-8) 1.1 1.0-3.2 [facility] CenterMonocytes # (Auto)2017-09-09 06:14:00* Test Item Value Reference Range Interpretation Comments Monocytes # (Auto) (test code = 742-7) 0.7 0.2-0.8 [facility] CenterEosinophils # (Auto)2017-09-09 06:14:00* Test Item Value Reference Range Interpretation Comments Eosinophils # (Auto) (test code = 711-2) 0.9 0.0-0.[address] CenterBasophils # (Auto)2017-09-09 06:14:00* Test Item Value Reference Range Interpretation Comments Basophils # (Auto) (test code = 704-7) 0.1 0.0-0.1 [facility] Medical CenterAbsolute Immature Granulocyte (auto 2017-09-09 06:14:00* Test Item Value Reference Range Interpretation Comments Absolute Immature Granulocyte (auto (vale t code = Absolute Immature Granulocyte (auto) 0.02 0-0.1 [facility] CenterWhite Blood Bwmil7185-01-44 06:14:00* Test Item Value Reference Range Interpretation Comments White Blood Count (test code = 6690-2) 8.27 4.8-10.8 [facility] CenterRed Blood Rnaue9538-02-66 06:14:00* Test Item Value Reference Range Interpretation Comments Red Blood Count (test code = 789-8) 3.12 3.6-5.[address] CenterHemoglobin2018-02-24 06:14:00* Test Item Value Reference Range Interpretation Comments Hemoglobin (test code = 39564-7) 8.0 12.0-16.[address] [facility] CenterHematocrit2018-02-24 06:14:00* Test Item Value Reference Range Interpretation Comments Hematocrit (test code = 4544-3) 26.7 34.2-44.[address] CenterMean Corpuscular Mxaujv8897-16-41 06:14:00* Test Item Value Reference Range Interpretation Comments Mean Corpuscular Volume (test code = 787-2) 85.6 81-99 [facility] CenterMean Corpuscular Bljpnjdvgs2539-78-37 06:14:00* Test Item Value Reference Range Interpretation Comments Mean Corpuscular Hemoglobin (test code = 785-6) 25.6 28-[address] [facility] CenterMean Corpuscular Hemoglobin Concent 2017-09-09 06:14:00* Test Item Value Reference Range Interpretation Comments Mean Corpuscular Hemoglobin Concent (test code = 786-4) 30.0 31-[address] [facility] CenterRed Cell Distribution Dilhu1201-39-48 06:14:00* Test Item Value Reference Range Interpretation Comments Red Cell Distribution Width (test code = 26284-8) 15.6 11.7 -14.[address] Medical CenterPlatelet Czecs5954-29-12 06:14:00* Test Item Value Reference Range Interpretation Comments Platelet Count (test code = 777-3) 150 140-360 [facility] CenterNeutrophils (%) (Auto)2017-09-09 06:14:00 * Test Item Value Reference Range Interpretation Comments Neutrophils (%) (Auto) (test code = 66733-2) 66.4 38.7-80.0 [facility] CenterLymphocytes (%) (Auto)2017-09-09 06:14:00 * Test Item Value Reference Range Interpretation Comments Lymphocytes (%) (Auto) (test code = 736-9) 12.9 18.0-39.[address] [facility] CenterMonocytes (%) (Auto)2017-09-09 06:14:00* Test Item Value Reference Range Interpretation Comments Monocytes (%) (Auto) (test code = 5905-5) 8.8 4.4-11.3 [facility] CenterEosinophils (%) (Auto)2017-09-09 06:14:00 * Test Item Value Reference Range Interpretation Comments Eosinophils (%) (Auto) (test code = 713-8) 10.9 0.0-6.[address] [facility] CenterBasophils (%) (Auto)2017-09-09 06:14:00* Test Item Value Reference Range Interpretation Comments Basophils (%) (Auto) (test code = 706-2) 0.8 0.0-1.0 [facility] CenterIM GRANULOCYTES %2017-09-09 06:14:00* Test Item Value Reference Range Interpretation Comments IM GRANULOCYTES % (test code = IM GRANULOCYTES %) 0.2 0.0- 1.0 [facility] CenterNeutrophils # (Auto)2017-09-09 06:14:00* Test Item Value Reference Range Interpretation Comments Neutrophils # (Auto) (test code = 751-8) 5.5 2.1-6.9 [facility] CenterLymphocytes # (Auto)2017-09-09 06:14:00* Test Item Value Reference Range Interpretation Comments Lymphocytes # (Auto) (test code = 27955-3) 1.1 1.0-3.2 [facility] CenterMonocytes # (Auto)2017-09-09 06:14:00* Test Item Value Reference Range Interpretation Comments Monocytes # (Auto) (test code = 742-7) 0.7 0.2-0.8 [facility] CenterEosinophils # (Auto)2017-09-09 06:14:00* Test Item Value Reference Range Interpretation Comments Eosinophils # (Auto) (test code = 711-2) 0.9 0.0-0.[address] [facility] [facility] CenterBasophils # (Auto)2017-09-09 06:14:00* Test Item Value Reference Range Interpretation Comments Basophils # (Auto) (test code = 704-7) 0.1 0.0-0.1 [facility] CenterAbsolute Immature Granulocyte (auto 2017-09-09 06:14:00* Test Item Value Reference Range Interpretation Comments Absolute Immature Granulocyte (auto (vale t code = Absolute Immature Granulocyte (auto) 0.02 0-0.1 [facility] CenterWhite Blood [id number] 06:14:00* Test Item Value Reference Range Interpretation Comments White Blood Count (test code = 6690-2) 8.27 4.8-10.8 [facility] CenterRed Blood [id number] 06:14:00* Test Item Value Reference Range Interpretation Comments Red Blood Count (test code = 789-8) 3.12 3.6-5.[address] [facility] CenterHemoglobin2018-02-24 06:14:00* Test Item Value Reference Range Interpretation Comments Hemoglobin (test code = 03079-2) 8.0 12.0-16.[address] [facility] CenterHematocrit2018-02-24 06:14:00* Test Item Value Reference Range Interpretation Comments Hematocrit (test code = 4544-3) 26.7 34.2-44.[address] [facility] CenterMean Corpuscular Wxteur9617-76-52 06:14:00* Test Item Value Reference Range Interpretation Comments Mean Corpuscular Volume (test code = 787-2) 85.6 81-99 [facility] CenterMean Corpuscular Sviqnovyal3412-57-67 06:14:00* Test Item Value Reference Range Interpretation Comments Mean Corpuscular Hemoglobin (test code = 785-6) 25.6 28-[address] [facility] CenterMean Corpuscular Hemoglobin Concent 2017-09-09 06:14:00* Test Item Value Reference Range Interpretation Comments Mean Corpuscular Hemoglobin Concent (test code = 786-4) 30.0 31-[address] [facility] CenterRed Cell Distribution [id number] 06:14:00* Test Item Value Reference Range Interpretation Comments Red Cell Distribution Width (test code = 72524-8) 15.6 11.7 -14.[address] [facility] CenterPlatelet [id number] 06:14:00* Test Item Value Reference Range Interpretation Comments Platelet Count (test code = 777-3) 150 140-360 [facility] CenterNeutrophils (%) (Auto)2017-09-09 06:14:00 * Test Item Value Reference Range Interpretation Comments Neutrophils (%) (Auto) (test code = 95790-3) 66.4 38.7-80.0 [facility] CenterLymphocytes (%) (Auto)2017-09-09 06:14:00 * Test Item Value Reference Range Interpretation Comments Lymphocytes (%) (Auto) (test code = 736-9) 12.9 18.0-39.[address] [facility] CenterMonocytes (%) (Auto)2017-09-09 06:14:00* Test Item Value Reference Range Interpretation Comments Monocytes (%) (Auto) (test code = 5905-5) 8.8 4.4-11.3 [facility] CenterEosinophils (%) (Auto)2017-09-09 06:14:00 * Test Item Value Reference Range Interpretation Comments Eosinophils (%) (Auto) (test code = 713-8) 10.9 0.0-6.[address] [facility] CenterBasophils (%) (Auto)2017-09-09 06:14:00* Test Item Value Reference Range Interpretation Comments Basophils (%) (Auto) (test code = 706-2) 0.8 0.0-1.0 [facility] CenterIM GRANULOCYTES %2017-09-09 06:14:00* Test Item Value Reference Range Interpretation Comments IM GRANULOCYTES % (test code = IM GRANULOCYTES %) 0.2 0.0- 1.0 [facility] CenterNeutrophils # (Auto)2017-09-09 06:14:00* Test Item Value Reference Range Interpretation Comments Neutrophils # (Auto) (test code = 751-8) 5.5 2.1-6.9 [facility] CenterLymphocytes # (Auto)2017-09-09 06:14:00* Test Item Value Reference Range Interpretation Comments Lymphocytes # (Auto) (test code = 53284-8) 1.1 1.0-3.2 [facility] CenterMonocytes # (Auto)2017-09-09 06:14:00* Test Item Value Reference Range Interpretation Comments Monocytes # (Auto) (test code = 742-7) 0.7 0.2-0.8 [facility] CenterEosinophils # (Auto)2017-09-09 06:14:00* Test Item Value Reference Range Interpretation Comments Eosinophils # (Auto) (test code = 711-2) 0.9 0.0-0.[address] [facility] CenterBasophils # (Auto)2017-09-09 06:14:00* Test Item Value Reference Range Interpretation Comments Basophils # (Auto) (test code = 704-7) 0.1 0.0-0.1 [facility] CenterAbsolute Immature Granulocyte (auto 2017-09-09 06:14:00* Test Item Value Reference Range Interpretation Comments Absolute Immature Granulocyte (auto (vale t code = Absolute Immature Granulocyte (auto) 0.02 0-0.1 [facility] CenterWhite Blood [id number] 06:14:00* Test Item Value Reference Range Interpretation Comments White Blood Count (test code = 6690-2) 8.27 4.8-10.8 [facility] CenterRed Blood [id number] 06:14:00* Test Item Value Reference Range Interpretation Comments Red Blood Count (test code = 789-8) 3.12 3.6-5.[address] [facility] CenterHemoglobin2018-02-24 06:14:00* Test Item Value Reference Range Interpretation Comments Hemoglobin (test code = 89660-3) 8.0 12.0-16.[address] [facility] CenterHematocrit2018-02-24 06:14:00* Test Item Value Reference Range Interpretation Comments Hematocrit (test code = 4544-3) 26.7 34.2-44.[address] [facility] CenterMean Corpuscular Mgtlyy1179-28-02 06:14:00* Test Item Value Reference Range Interpretation Comments Mean Corpuscular Volume (test code = 787-2) 85.6 81-99 [facility] CenterMean Corpuscular Tlfillhfen4579-88-79 06:14:00* Test Item Value Reference Range Interpretation Comments Mean Corpuscular Hemoglobin (test code = 785-6) 25.6 28-[address] [facility] CenterMean Corpuscular Hemoglobin Concent 2017-09-09 06:14:00* Test Item Value Reference Range Interpretation Comments Mean Corpuscular Hemoglobin Concent (test code = 786-4) 30.0 31-[address] [facility] CenterRed Cell Distribution [id number] 06:14:00* Test Item Value Reference Range Interpretation Comments Red Cell Distribution Width (test code = 18483-5) 15.6 11.7 -14.[address] [facility] CenterPlatelet Ipdxi8629-35-47 06:14:00* Test Item Value Reference Range Interpretation Comments Platelet Count (test code = 777-3) 150 140-360 [facility] CenterNeutrophils (%) (Auto)2017-09-09 06:14:00 * Test Item Value Reference Range Interpretation Comments Neutrophils (%) (Auto) (test code = 42881-4) 66.4 38.7-80.0 [facility] CenterLymphocytes (%) (Auto)2017-09-09 06:14:00 * Test Item Value Reference Range Interpretation Comments Lymphocytes (%) (Auto) (test code = 736-9) 12.9 18.0-39.[address] [facility] CenterMonocytes (%) (Auto)2017-09-09 06:14:00* Test Item Value Reference Range Interpretation Comments Monocytes (%) (Auto) (test code = 5905-5) 8.8 4.4-11.3 [facility] CenterEosinophils (%) (Auto)2017-09-09 06:14:00 * Test Item Value Reference Range Interpretation Comments Eosinophils (%) (Auto) (test code = 713-8) 10.9 0.0-6.[address] [facility] CenterBasophils (%) (Auto)2017-09-09 06:14:00* Test Item Value Reference Range Interpretation Comments Basophils (%) (Auto) (test code = 706-2) 0.8 0.0-1.0 [facility] CenterIM GRANULOCYTES %2017-09-09 06:14:00* Test Item Value Reference Range Interpretation Comments IM GRANULOCYTES % (test code = IM GRANULOCYTES %) 0.2 0.0- 1.0 [facility] CenterNeutrophils # (Auto)2017-09-09 06:14:00* Test Item Value Reference Range Interpretation Comments Neutrophils # (Auto) (test code = 751-8) 5.5 2.1-6.9 [facility] CenterLymphocytes # (Auto)2017-09-09 06:14:00* Test Item Value Reference Range Interpretation Comments Lymphocytes # (Auto) (test code = 33518-5) 1.1 1.0-3.2 [facility] CenterMonocytes # (Auto)2017-09-09 06:14:00* Test Item Value Reference Range Interpretation Comments Monocytes # (Auto) (test code = 742-7) 0.7 0.2-0.8 [facility] CenterEosinophils # (Auto)2017-09-09 06:14:00* Test Item Value Reference Range Interpretation Comments Eosinophils # (Auto) (test code = 711-2) 0.9 0.0-0.[address] [facility] CenterBasophils # (Auto)2017-09-09 06:14:00* Test Item Value Reference Range Interpretation Comments Basophils # (Auto) (test code = 704-7) 0.1 0.0-0.1 [facility] CenterAbsolute Immature Granulocyte (auto 2017-09-09 06:14:00* Test Item Value Reference Range Interpretation Comments Absolute Immature Granulocyte (auto (vale t code = Absolute Immature Granulocyte (auto) 0.02 0-0.1 [facility] CenterWhite Blood [id number] 06:14:00* Test Item Value Reference Range Interpretation Comments White Blood Count (test code = 6690-2) 8.27 4.8-10.8 [facility] CenterRed Blood Txrwp4059-71-67 06:14:00* Test Item Value Reference Range Interpretation Comments Red Blood Count (test code = 789-8) 3.12 3.6-5.[address] [facility] CenterHemoglobin2018-02-24 06:14:00* Test Item Value Reference Range Interpretation Comments Hemoglobin (test code = 72448-6) 8.0 12.0-16.[address] [facility] CenterHematocrit2018-02-24 06:14:00* Test Item Value Reference Range Interpretation Comments Hematocrit (test code = 4544-3) 26.7 34.2-44.[address] [facility] CenterMean Corpuscular Tcodce4400-14-81 06:14:00* Test Item Value Reference Range Interpretation Comments Mean Corpuscular Volume (test code = 787-2) 85.6 81-99 [facility] CenterMean Corpuscular Bblcgtbnhl0439-79-78 06:14:00* Test Item Value Reference Range Interpretation Comments Mean Corpuscular Hemoglobin (test code = 785-6) 25.6 28-[address] [facility] CenterMean Corpuscular Hemoglobin Concent 2017-09-09 06:14:00* Test Item Value Reference Range Interpretation Comments Mean Corpuscular Hemoglobin Concent (test code = 786-4) 30.0 31-[address] [facility] CenterRed Cell Distribution [id number] 06:14:00* Test Item Value Reference Range Interpretation Comments Red Cell Distribution Width (test code = 70280-9) 15.6 11.7 -14.[address] [facility] CenterPlatelet [id number] 06:14:00* Test Item Value Reference Range Interpretation Comments Platelet Count (test code = 777-3) 150 140-360 [facility] CenterNeutrophils (%) (Auto)2017-09-09 06:14:00 * Test Item Value Reference Range Interpretation Comments Neutrophils (%) (Auto) (test code = 36198-3) 66.4 38.7-80.0 [facility] CenterLymphocytes (%) (Auto)2017-09-09 06:14:00 * Test Item Value Reference Range Interpretation Comments Lymphocytes (%) (Auto) (test code = 736-9) 12.9 18.0-39.[address] [facility] CenterMonocytes (%) (Auto)2017-09-09 06:14:00* Test Item Value Reference Range Interpretation Comments Monocytes (%) (Auto) (test code = 5905-5) 8.8 4.4-11.3 [facility] CenterEosinophils (%) (Auto)2017-09-09 06:14:00 * Test Item Value Reference Range Interpretation Comments Eosinophils (%) (Auto) (test code = 713-8) 10.9 0.0-6.[address] [facility] CenterBasophils (%) (Auto)2017-09-09 06:14:00* Test Item Value Reference Range Interpretation Comments Basophils (%) (Auto) (test code = 706-2) 0.8 0.0-1.0 [facility] CenterIM GRANULOCYTES %2017-09-09 06:14:00* Test Item Value Reference Range Interpretation Comments IM GRANULOCYTES % (test code = IM GRANULOCYTES %) 0.2 0.0- 1.0 [facility] CenterNeutrophils # (Auto)2017-09-09 06:14:00* Test Item Value Reference Range Interpretation Comments Neutrophils # (Auto) (test code = 751-8) 5.5 2.1-6.9 [facility] CenterLymphocytes # (Auto)2017-09-09 06:14:00* Test Item Value Reference Range Interpretation Comments Lymphocytes # (Auto) (test code = 40156-6) 1.1 1.0-3.2 [facility] CenterMonocytes # (Auto)2017-09-09 06:14:00* Test Item Value Reference Range Interpretation Comments Monocytes # (Auto) (test code = 742-7) 0.7 0.2-0.8 [facility] CenterEosinophils # (Auto)2017-09-09 06:14:00* Test Item Value Reference Range Interpretation Comments Eosinophils # (Auto) (test code = 711-2) 0.9 0.0-0.[address] [facility] CenterBasophils # (Auto)2017-09-09 06:14:00* Test Item Value Reference Range Interpretation Comments Basophils # (Auto) (test code = 704-7) 0.1 0.0-0.1 [facility] CenterAbsolute Immature Granulocyte (auto 2017-09-09 06:14:00* Test Item Value Reference Range Interpretation Comments Absolute Immature Granulocyte (auto (vale t code = Absolute Immature Granulocyte (auto) 0.02 0-0.1 [facility] CenterWhite Blood [id number] 06:14:00* Test Item Value Reference Range Interpretation Comments White Blood Count (test code = 6690-2) 8.27 4.8-10.8 [facility] CenterRed Blood Sujws9904-04-75 06:14:00* Test Item Value Reference Range Interpretation Comments Red Blood Count (test code = 789-8) 3.12 3.6-5.[address] [facility] CenterHemoglobin2018-02-24 06:14:00* Test Item Value Reference Range Interpretation Comments Hemoglobin (test code = 44560-6) 8.0 12.0-16.[address] [facility] CenterHematocrit2018-02-24 06:14:00* Test Item Value Reference Range Interpretation Comments Hematocrit (test code = 4544-3) 26.7 34.2-44.[address] [facility] CenterMean Corpuscular [id number] 06:14:00* Test Item Value Reference Range Interpretation Comments Mean Corpuscular Volume (test code = 787-2) 85.6 81-99 [facility] CenterMean Corpuscular Dtwtaleqgs0453-47-03 06:14:00* Test Item Value Reference Range Interpretation Comments Mean Corpuscular Hemoglobin (test code = 785-6) 25.6 28-[address] [facility] CenterMean Corpuscular Hemoglobin Concent 2017-09-09 06:14:00* Test Item Value Reference Range Interpretation Comments Mean Corpuscular Hemoglobin Concent (test code = 786-4) 30.0 31-[address] [facility] CenterRed Cell Distribution [id number] 06:14:00* Test Item Value Reference Range Interpretation Comments Red Cell Distribution Width (test code = 80300-4) 15.6 11.7 -14.[address] [facility] CenterPlatelet Kacex2014-15-07 06:14:00* Test Item Value Reference Range Interpretation Comments Platelet Count (test code = 777-3) 150 140-360 [facility] CenterNeutrophils (%) (Auto)2017-09-09 06:14:00 * Test Item Value Reference Range Interpretation Comments Neutrophils (%) (Auto) (test code = 79132-8) 66.4 38.7-80.0 [facility] CenterLymphocytes (%) (Auto)2017-09-09 06:14:00 * Test Item Value Reference Range Interpretation Comments Lymphocytes (%) (Auto) (test code = 736-9) 12.9 18.0-39.[address] [facility] CenterMonocytes (%) (Auto)2017-09-09 06:14:00* Test Item Value Reference Range Interpretation Comments Monocytes (%) (Auto) (test code = 5905-5) 8.8 4.4-11.3 [facility] CenterEosinophils (%) (Auto)2017-09-09 06:14:00 * Test Item Value Reference Range Interpretation Comments Eosinophils (%) (Auto) (test code = 713-8) 10.9 0.0-6.[address] [facility] CenterBasophils (%) (Auto)2017-09-09 06:14:00* Test Item Value Reference Range Interpretation Comments Basophils (%) (Auto) (test code = 706-2) 0.8 0.0-1.0 [facility] CenterIM GRANULOCYTES %2017-09-09 06:14:00* Test Item Value Reference Range Interpretation Comments IM GRANULOCYTES % (test code = IM GRANULOCYTES %) 0.2 0.0- 1.0 [facility] CenterNeutrophils # (Auto)2017-09-09 06:14:00* Test Item Value Reference Range Interpretation Comments Neutrophils # (Auto) (test code = 751-8) 5.5 2.1-6.9 [facility] CenterLymphocytes # (Auto)2017-09-09 06:14:00* Test Item Value Reference Range Interpretation Comments Lymphocytes # (Auto) (test code = 57295-1) 1.1 1.0-3.2 [facility] CenterMonocytes # (Auto)2017-09-09 06:14:00* Test Item Value Reference Range Interpretation Comments Monocytes # (Auto) (test code = 742-7) 0.7 0.2-0.8 [facility] CenterEosinophils # (Auto)2017-09-09 06:14:00* Test Item Value Reference Range Interpretation Comments Eosinophils # (Auto) (test code = 711-2) 0.9 0.0-0.[address] [facility] CenterBasophils # (Auto)2017-09-09 06:14:00* Test Item Value Reference Range Interpretation Comments Basophils # (Auto) (test code = 704-7) 0.1 0.0-0.1 [facility] CenterAbsolute Immature Granulocyte (auto 2017-09-09 06:14:00* Test Item Value Reference Range Interpretation Comments Absolute Immature Granulocyte (auto (vale t code = Absolute Immature Granulocyte (auto) 0.02 0-0.1 [facility] CenterWhite Blood Jughc6038-06-10 06:14:00* Test Item Value Reference Range Interpretation Comments White Blood Count (test code = 6690-2) 8.27 4.8-10.8 [facility] CenterRed Blood [id number] 06:14:00* Test Item Value Reference Range Interpretation Comments Red Blood Count (test code = 789-8) 3.12 3.6-5.[address] [facility] CenterHemoglobin2018-02-24 06:14:00* Test Item Value Reference Range Interpretation Comments Hemoglobin (test code = 58149-9) 8.0 12.0-16.[address] [facility] CenterHematocrit2018-02-24 06:14:00* Test Item Value Reference Range Interpretation Comments Hematocrit (test code = 4544-3) 26.7 34.2-44.[address] [facility] CenterMean Corpuscular Povywl1506-61-11 06:14:00* Test Item Value Reference Range Interpretation Comments Mean Corpuscular Volume (test code = 787-2) 85.6 81-99 [facility] CenterMean Corpuscular Qnnphayeba3580-75-68 06:14:00* Test Item Value Reference Range Interpretation Comments Mean Corpuscular Hemoglobin (test code = 785-6) 25.6 28-[address] [facility] CenterMean Corpuscular Hemoglobin Concent 2017-09-09 06:14:00* Test Item Value Reference Range Interpretation Comments Mean Corpuscular Hemoglobin Concent (test code = 786-4) 30.0 31-[address] [facility] CenterRed Cell Distribution [id number] 06:14:00* Test Item Value Reference Range Interpretation Comments Red Cell Distribution Width (test code = 86936-2) 15.6 11.7 -14.[address] [facility] CenterPlatelet [id number] 06:14:00* Test Item Value Reference Range Interpretation Comments Platelet Count (test code = 777-3) 150 140-360 [facility] CenterNeutrophils (%) (Auto)2017-09-09 06:14:00 * Test Item Value Reference Range Interpretation Comments Neutrophils (%) (Auto) (test code = 57491-3) 66.4 38.7-80.0 [facility] CenterLymphocytes (%) (Auto)2017-09-09 06:14:00 * Test Item Value Reference Range Interpretation Comments Lymphocytes (%) (Auto) (test code = 736-9) 12.9 18.0-39.[address] [facility] CenterMonocytes (%) (Auto)2017-09-09 06:14:00* Test Item Value Reference Range Interpretation Comments Monocytes (%) (Auto) (test code = 5905-5) 8.8 4.4-11.3 [facility] CenterEosinophils (%) (Auto)2017-09-09 06:14:00 * Test Item Value Reference Range Interpretation Comments Eosinophils (%) (Auto) (test code = 713-8) 10.9 0.0-6.[address] [facility] CenterBasophils (%) (Auto)2017-09-09 06:14:00* Test Item Value Reference Range Interpretation Comments Basophils (%) (Auto) (test code = 706-2) 0.8 0.0-1.0 [facility] CenterIM GRANULOCYTES %2017-09-09 06:14:00* Test Item Value Reference Range Interpretation Comments IM GRANULOCYTES % (test code = IM GRANULOCYTES %) 0.2 0.0- 1.0 [facility] CenterNeutrophils # (Auto)2017-09-09 06:14:00* Test Item Value Reference Range Interpretation Comments Neutrophils # (Auto) (test code = 751-8) 5.5 2.1-6.9 [facility] CenterLymphocytes # (Auto)2017-09-09 06:14:00* Test Item Value Reference Range Interpretation Comments Lymphocytes # (Auto) (test code = 00352-0) 1.1 1.0-3.2 [facility] CenterMonocytes # (Auto)2017-09-09 06:14:00* Test Item Value Reference Range Interpretation Comments Monocytes # (Auto) (test code = 742-7) 0.7 0.2-0.8 [facility] CenterEosinophils # (Auto)2017-09-09 06:14:00* Test Item Value Reference Range Interpretation Comments Eosinophils # (Auto) (test code = 711-2) 0.9 0.0-0.[address] [facility] CenterBasophils # (Auto)2017-09-09 06:14:00* Test Item Value Reference Range Interpretation Comments Basophils # (Auto) (test code = 704-7) 0.1 0.0-0.1 [facility] CenterAbsolute Immature Granulocyte (auto 2017-09-09 06:14:00* Test Item Value Reference Range Interpretation Comments Absolute Immature Granulocyte (auto (vale t code = Absolute Immature Granulocyte (auto) 0.02 0-0.1 [facility] CenterMagnesium Gnrub6225-33-09 06:25:00* Test Item Value Reference Range Interpretation Comments Magnesium Level (test code = 81817-7) 1.6 1.3-2.1 [facility] Dpzei2663-18-66 06:25:00* Test Item Value Reference Range Interpretation Comments Magnesium Level (test code = 36360-3) 1.6 1.3-2.1 [facility] CenterMagnesium Quspo6017-69-29 06:25:00* Test Item Value Reference Range Interpretation Comments Magnesium Level (test code = 02756-6) 1.6 1.3-2.1 [facility] CenterMagn[facility] Vmqdu0150-51-21 06:25:00* Test Item Value Reference Range Interpretation Comments Magnesium Level (test code = 72137-5) 1.6 1.3-2.1 [facility] CenterMagn[facility] Ynrok3857-55-01 06:25:00* Test Item Value Reference Range Interpretation Comments Magnesium Level (test code = 05861-4) 1.6 1.3-2.1 [facility] CenterMagnesium Opuqv5847-65-50 06:25:00* Test Item Value Reference Range Interpretation Comments Magnesium Level (test code = 43684-5) 1.6 1.3-2.1 [facility] CenterMagnesium Oairx6944-87-10 06:25:00* Test Item Value Reference Range Interpretation Comments Magnesium Level (test code = 53602-9) 1.6 1.3-2.1 [facility]He[facility] B Surface Antibody, Quant 2017-09-07 07:49:00* Test Item Value Reference Range Interpretation Comments Hepatitis B Surface Antibody, Quant (test code = 5194-6) -3.1 Immunity>9.9 mIU/mLStatus of Immunity Anti-HBs Level Inconsistent with Immunity 0.0 - 9.9Consistent with Immunity > 9.9Testing performed by:[employer] [address] [phone]: Ga Damian [facility] B Core Total Kkgrzhqd9651-74-95 07:49:00* Test Item Value Reference Range Interpretation Comments Hepatitis B Core Total Antibody (test code = 57426-0) Negative [facility] B Surface Csoclbx2243-10-82 07:49:00* Test Item Value Reference Range Interpretation Comments Hepatitis B Surface Antigen (test code = 5196-1) Negative [facility] C Rywagoev1758-01-27 07:49:00* Test Item Value Reference Range Interpretation Comments Hepatitis C Antibody (test code = 27635-3) 0.2 Reference Range: 0.0 - 0.9 s/co ratioNegative: < 0.8Indeterminate: 0.8 - 0.9Positive: > 0.9The CDC recommends that a positive HCV antibody resultbe followed up with a HCV Nucleic Acid Amplificationtest (240231).[facility] [address] [address]Ufb: Ga Damian MDFor inquiries, the physician may contact Branch: [phone] Lab: [phone]. Luke[facility] CenterHeclinton [facility] hospitaltis B Surface Antibody, Wzibk2620-28-32 07:49:00* Test Item Value Reference Range Interpretation Comments Hepatitis B Surface Antibody, Quant (test code = 5194-6) -3.1 Immunity>9.9 mIU/mLStatus of Immunity Anti-HBs Level Inconsistent with Immunity 0.0 - 9.9Consistent with Immunity > 9.9Testing performed by:[employer] [place] [address] [phone]: Ga Damian [facility] B Core Total Hapipbwd7678-16-99 07:49:00* Test Item Value Reference Range Interpretation Comments Hepatitis B Core Total Antibody (test code = 01677-9) Negative [facility] B Surface Antibody, Quant 2017-09-07 07:49:00* Test Item Value Reference Range Interpretation Comments Hepatitis B Surface Antibody, Quant (test code = 5194-6) -3.1 Immunity>9.9 mIU/mLStatus of Immunity Anti-HBs Level Inconsistent with Immunity 0.0 - 9.9Consistent with Immunity > 9.9Testing performed by:[employer] [place] [address] [phone]: Ga Damian [facility] B Core Total Wvfkrxzi9686-01-93 07:49:00* Test Item Value Reference Range Interpretation Comments Hepatitis B Core Total Antibody (test code = 67576-4) Negative [facility] B Surface Antibody, Quant 2017-09-07 07:49:00* Test Item Value Reference Range Interpretation Comments Hepatitis B Surface Antibody, Quant (test code = 5194-6) -3.1 Immunity>9.9 mIU/mLStatus of Immunity Anti-HBs Level Inconsistent with Immunity 0.0 - 9.9Consistent with Immunity > 9.9Testing performed by:[employer] [place] [address] [phone]: Ga Damian [facility] B Core Total Voqbedzx9386-65-09 07:49:00* Test Item Value Reference Range Interpretation Comments Hepatitis B Core Total Antibody (test code = 25125-7) Negative [facility] B Surface Antibody, Quant 2017-09-07 07:49:00* Test Item Value Reference Range Interpretation Comments Hepatitis B Surface Antibody, Quant (test code = 5194-6) -3.1 Immunity>9.9 mIU/mLStatus of Immunity Anti-HBs Level Inconsistent with Immunity 0.0 - 9.9Consistent with Immunity > 9.9Testing performed by:[employer] [place] [address] [phone]: Ga Damian [facility] B Core Total Bqftciyu7069-16-97 07:49:00* Test Item Value Reference Range Interpretation Comments Hepatitis B Core Total Antibody (test code = 67042-6) Negative [facility] B Surface Antibody, Quant 2017-09-07 07:49:00* Test Item Value Reference Range Interpretation Comments Hepatitis B Surface Antibody, Quant (test code = 5194-6) -3.1 Immunity>9.9 mIU/mLStatus of Immunity Anti-HBs Level Inconsistent with Immunity 0.0 - 9.9Consistent with Immunity > 9.9Testing performed by:[employer] [place] [address] [phone]: Ga Damian [facility] B Core Total Klbrqzip4397-65-56 07:49:00* Test Item Value Reference Range Interpretation Comments Hepatitis B Core Total Antibody (test code = 34601-2) Negative [facility] B Surface Antibody, Quant 2017-09-07 07:49:00* Test Item Value Reference Range Interpretation Comments Hepatitis B Surface Antibody, Quant (test code = 5194-6) <3.1 Immunity>9.9 mIU/mLStatus of Immunity Anti-HBs Level Inconsistent with Immunity 0.0 - 9.9Consistent with Immunity > 9.9Testing performed by:[employer] [address] [place], [place] [phone]: Ga Damian [facility] B Core Total Arctrivs5092-25-79 07:49:00* Test Item Value Reference Range Interpretation Comments Hepatitis B Core Total Antibody (test code = 95250-9) Negative [facility] CenterTotal Vtpkqllrw1214-67-26 06:23:00* Test Item Value Reference Range Interpretation Comments Total Bilirubin (test code = 1975-2) 0.3 0.2-1.2 [facility] Medical CenterAspartate Amino Transf (AST/SGOT) 2017-09-06 06:23:00* Test Item Value Reference Range Interpretation Comments Aspartate Amino Transf (AST/SGOT) (test code = Aspartate Amino Transf (AST/SGOT)) 11 5-34 [facility] CenterAlanine Aminotransferase (ALT/SGPT) 2017-09-06 06:23:00* Test Item Value Reference Range Interpretation Comments Alanine Aminotransferase (ALT/SGPT) (test code = 1742-6) 11 0-55 [facility] CenterTotal Nnwcswx6883-76-59 06:23:00* Test Item Value Reference Range Interpretation Comments Total Protein (test code = 2885-2) 6.5 6.5-8.1 [facility] CenterAlbumin2018-02-21 06:23:00* Test Item Value Reference Range Interpretation Comments Albumin (test code = 1751-7) 2.7 3.5-5.[address] [facility] CenterGlobulin2018-02-21 06:23:00* Test Item Value Reference Range Interpretation Comments Globulin (test code = 74572-1) 3.8 2.3-3.[address] [facility] CenterAlbumin/Globulin Jedyq9300-09-34 06:23:00 * Test Item Value Reference Range Interpretation Comments Albumin/Globulin Ratio (test code = 1759-0) 0.7 0.8-2.[address] [facility] CenterAlkaline Vzjidewclie9458-94-42 06:23:00* Test Item Value Reference Range Interpretation Comments Alkaline Phosphatase (test code = 6768-6) 56 40-150 [facility] CenterTotal Dvjrsdaxj0884-58-21 06:23:00* Test Item Value Reference Range Interpretation Comments Total Bilirubin (test code = 1975-2) 0.3 0.2-1.2 [facility] CenterAspartate Amino Transf (AST/SGOT) 2017-09-06 06:23:00* Test Item Value Reference Range Interpretation Comments Aspartate Amino Transf (AST/SGOT) (test code = Aspartate Amino Transf (AST/SGOT)) 11 5-34 [facility] CenterAlanine Aminotransferase (ALT/SGPT) 2017-09-06 06:23:00* Test Item Value Reference Range Interpretation Comments Alanine Aminotransferase (ALT/SGPT) (test code = 1742-6) 11 0-55 [facility] CenterTotal Rxgzzza3806-82-94 06:23:00* Test Item Value Reference Range Interpretation Comments Total Protein (test code = 2885-2) 6.5 6.5-8.1 [facility] CenterAlbumin2018-02-21 06:23:00* Test Item Value Reference Range Interpretation Comments Albumin (test code = 1751-7) 2.7 3.5-5.[address] [facility] CenterGlobulin2018-02-21 06:23:00* Test Item Value Reference Range Interpretation Comments Globulin (test code = 17431-2) 3.8 2.3-3.[address] CenterAlbumin/Globulin Birag5528-99-92 06:23:00 * Test Item Value Reference Range Interpretation Comments Albumin/Globulin Ratio (test code = 1759-0) 0.7 0.8-2.[address] [facility] CenterAlkaline Xxtvolxikki0561-81-23 06:23:00* Test Item Value Reference Range Interpretation Comments Alkaline Phosphatase (test code = 6768-6) 56 40-150 [facility] CenterTotal Unegsnvwz2712-76-54 06:23:00* Test Item Value Reference Range Interpretation Comments Total Bilirubin (test code = 1975-2) 0.3 0.2-1.2 [facility] CenterAspartate Amino Transf (AST/SGOT) 2017-09-06 06:23:00* Test Item Value Reference Range Interpretation Comments Aspartate Amino Transf (AST/SGOT) (test code = Aspartate Amino Transf (AST/SGOT)) 11 5-34 [facility] CenterAlanine Aminotransferase (ALT/SGPT) 2017-09-06 06:23:00* Test Item Value Reference Range Interpretation Comments Alanine Aminotransferase (ALT/SGPT) (test code = 1742-6) 11 0-55 [facility] Okoslxj6850-63-50 06:23:00* Test Item Value Reference Range Interpretation Comments Total Protein (test code = 2885-2) 6.5 6.5-8.1 [facility] CenterAlbumin2018-02-21 06:23:00* Test Item Value Reference Range Interpretation Comments Albumin (test code = 1751-7) 2.7 3.5-5.[address] CenterGlobulin2018-02-21 06:23:00* Test Item Value Reference Range Interpretation Comments Globulin (test code = 97565-1) 3.8 2.3-3.[address] [facility] CenterAlbumin/Globulin Rcxii8696-94-41 06:23:00 * Test Item Value Reference Range Interpretation Comments Albumin/Globulin Ratio (test code = 1759-0) 0.7 0.8-2.[address] CenterAlkaline Vrahjcxodpk7329-34-43 06:23:00* Test Item Value Reference Range Interpretation Comments Alkaline Phosphatase (test code = 6768-6) 56 40-150 [facility] CenterTotal Qtzbdaxtg0446-08-98 06:23:00* Test Item Value Reference Range Interpretation Comments Total Bilirubin (test code = 1975-2) 0.3 0.2-1.2 [facility] CenterAspartate Amino Transf (AST/SGOT) 2017-09-06 06:23:00* Test Item Value Reference Range Interpretation Comments Aspartate Amino Transf (AST/SGOT) (test code = Aspartate Amino Transf (AST/SGOT)) 11 5-34 [facility] CenterAlanine Aminotransferase (ALT/SGPT) 2017-09-06 06:23:00* Test Item Value Reference Range Interpretation Comments Alanine Aminotransferase (ALT/SGPT) (test code = 1742-6) 11 0-55 [facility] Hrbcznj3048-64-82 06:23:00* Test Item Value Reference Range Interpretation Comments Total Protein (test code = 2885-2) 6.5 6.5-8.1 [facility] CenterAlbumin2018-02-21 06:23:00* Test Item Value Reference Range Interpretation Comments Albumin (test code = 1751-7) 2.7 3.5-5.[address] [facility] CenterGlobulin2018-02-21 06:23:00* Test Item Value Reference Range Interpretation Comments Globulin (test code = 75778-1) 3.8 2.3-3.[address] CenterAlbumin/Globulin Soazm2160-71-87 06:23:00 * Test Item Value Reference Range Interpretation Comments Albumin/Globulin Ratio (test code = 1759-0) 0.7 0.8-2.[address] CenterAlkaline Uhoidkwykfr0142-09-03 06:23:00* Test Item Value Reference Range Interpretation Comments Alkaline Phosphatase (test code = 6768-6) 56 40-150 [facility] Uwcrqcndl0163-64-02 06:23:00* Test Item Value Reference Range Interpretation Comments Total Bilirubin (test code = 1975-2) 0.3 0.2-1.2 [facility] CenterAspartate Amino Transf (AST/SGOT) 2017-09-06 06:23:00* Test Item Value Reference Range Interpretation Comments Aspartate Amino Transf (AST/SGOT) (test code = Aspartate Amino Transf (AST/SGOT)) 11 5-34 [facility] CenterAlanine Aminotransferase (ALT/SGPT) 2017-09-06 06:23:00* Test Item Value Reference Range Interpretation Comments Alanine Aminotransferase (ALT/SGPT) (test code = 1742-6) 11 0-55 [facility] CenterTotal Zvzgnxf9228-15-37 06:23:00* Test Item Value Reference Range Interpretation Comments Total Protein (test code = 2885-2) 6.5 6.5-8.1 [facility] CenterAlbumin2018-02-21 06:23:00* Test Item Value Reference Range Interpretation Comments Albumin (test code = 1751-7) 2.7 3.5-5.[address] CenterGlobulin2018-02-21 06:23:00* Test Item Value Reference Range Interpretation Comments Globulin (test code = 96467-1) 3.8 2.3-3.[address] [facility] CenterAlbumin/Globulin Ghkqr0180-20-07 06:23:00 * Test Item Value Reference Range Interpretation Comments Albumin/Globulin Ratio (test code = 1759-0) 0.7 0.8-2.[address] CenterAlkaline Rgrsvdgzubj0038-33-66 06:23:00* Test Item Value Reference Range Interpretation Comments Alkaline Phosphatase (test code = 6768-6) 56 40-150 [facility] CenterTotal Wqztrsohv6255-00-92 06:23:00* Test Item Value Reference Range Interpretation Comments Total Bilirubin (test code = 1975-2) 0.3 0.2-1.2 [facility] CenterAspartate Amino Transf (AST/SGOT) 2017-09-06 06:23:00* Test Item Value Reference Range Interpretation Comments Aspartate Amino Transf (AST/SGOT) (test code = Aspartate Amino Transf (AST/SGOT)) 11 -34 [facility] CenterAlanine Aminotransferase (ALT/SGPT) 2017-09-06 06:23:00* Test Item Value Reference Range Interpretation Comments Alanine Aminotransferase (ALT/SGPT) (test code = 1742-6) 11 0-55 [facility] CenterTotal Dujrhnw5004-29-68 06:23:00* Test Item Value Reference Range Interpretation Comments Total Protein (test code = 2885-2) 6.5 6.5-8.1 [facility] CenterAlbumin2018-02-21 06:23:00* Test Item Value Reference Range Interpretation Comments Albumin (test code = 1751-7) 2.7 3.5-5.[address] [facility] CenterGlobulin2018-02-21 06:23:00* Test Item Value Reference Range Interpretation Comments Globulin (test code = 07857-6) 3.8 2.3-3.[address] [facility] CenterAlbumin/Globulin Qywgr3625-54-97 06:23:00 * Test Item Value Reference Range Interpretation Comments Albumin/Globulin Ratio (test code = 1759-0) 0.7 0.8-2.[address] [facility] CenterAlkaline Vpqhznwvjnz8795-27-15 06:23:00* Test Item Value Reference Range Interpretation Comments Alkaline Phosphatase (test code = 6768-6) 56 40-150 [facility] CenterTotal Hwapxkgfo6339-09-82 06:23:00* Test Item Value Reference Range Interpretation Comments Total Bilirubin (test code = 1975-2) 0.3 0.2-1.2 [facility] CenterAspartate Amino Transf (AST/SGOT) 2017-09-06 06:23:00* Test Item Value Reference Range Interpretation Comments Aspartate Amino Transf (AST/SGOT) (test code = Aspartate Amino Transf (AST/SGOT)) [address] [facility] CenterAlanine Aminotransferase (ALT/SGPT) 2017-09-06 06:23:00* Test Item Value Reference Range Interpretation Comments Alanine Aminotransferase (ALT/SGPT) (test code = 1742-6) 11 0-55 [facility] CenterTotal Fkmxvtx1498-51-53 06:23:00* Test Item Value Reference Range Interpretation Comments Total Protein (test code = 2885-2) 6.5 6.5-8.1 [facility] CenterAlbumin2018-02-21 06:23:00* Test Item Value Reference Range Interpretation Comments Albumin (test code = 1751-7) 2.7 3.5-5.[address] [facility] CenterGlobulin2018-02-21 06:23:00* Test Item Value Reference Range Interpretation Comments Globulin (test code = 48136-6) 3.8 2.3-3.[address] CenterAlbumin/Globulin Whnlr4045-73-64 06:23:00 * Test Item Value Reference Range Interpretation Comments Albumin/Globulin Ratio (test code = 1759-0) 0.7 0.8-2.[address] CenterAlkaline Xxlhmhbbrcm9196-27-59 06:23:00* Test Item Value Reference Range Interpretation Comments Alkaline Phosphatase (test code = 6768-6) 56 40-150 [facility] CenterHeparin-Induced Platelet Antibody 2017-09-06 06:11:00* Test Item Value Reference Range Interpretation Comments Heparin-Induced Platelet Antibody (test code = 77786-8) 0.224 0.000-0.400 Performed at: [employer] [id number] Plaster Machine Tender: Douglas Montez MD, Phone: [phone]. Luke's Health – [facility]lor St. [facility]'s Medical Centerp-ANCA Uymsn2248-80-11 06:11:00* Test Item Value Reference Range Interpretation Comments p-ANCA Titer (test code = 84853-7) -1:20 Neg:<1:20 The presence of positive fluorescence exhibiting P-ANCA orC-ANCA patterns alone is not specific for the diagnosis ofWegener's Granulomatosis (WG) or microscopic polyangiitis.Decisions about treatment should not be based solely onANCA IFA virginia eckert. [employer] Consensusrecommends follow up testing of po sitive sera with both AK-3 and MPO-ANCA enzyme immunoassays. As many as 5% serum samples are positive only by EIA. Ref. AM J Clin Usmojz9729;111:507-513.[facility] CenterAtypical b-TMLP9279-10IJKI4556-67-76 06:11:00* Test Item Value Reference Range Interpretation Comments Atypical p-ANCA (test code = 42461-6) -1:20 Neg:<1:20 The atypical pANCA pattern has been observed in asignificant percentage of patie nts with ulcerative colitis,primary sclerosing cholangitis and autoimmune hepati tis.Performed at: [facility] [address]Lab Director: Douglas Montez MD, Phone: [phone]. Luke[facility]'s Medical CenterHeparin-Induced Platelet Dxhcvqby8392-45-38 06:11:00* Test Item Value Reference Range Interpretation Comments Heparin-Induced Platelet Antibody (test code = 34596-2) 0.224 0.000-0.400 Performed at: [facility] [id number] Plaster Machine Tender: Douglas Montez MD, Phone: [phone]. Luke's Health – [facility]'s Medical Centerp-ANCA Zvjdw0246-71-73 06:11:00* Test Item Value Reference Range Interpretation Comments p-ANCA Titer (test code = 63299-9) -1:20 Neg:<1:20 The presence of positive fluorescence exhibiting P-ANCA orC-ANCA patterns alone is not specific for the diagnosis ofWegener's Granulomatosis (WG) or microscopic polyangiitis.Decisions about treatment should not be based solely onANCA IFA re sulcatherine. The [employer] Consensusrecommends follow up testing of po sitive sera with both AK-3 and MPO-ANCA enzyme immunoassays. As many as 5% serum samples are positive only by EIA. Ref. AM J Clin Jvacpk1295;111:507-513.[facility] CenterAtypical e-[id number] 06:11:00* Test Item Value Reference Range Interpretation Comments Atypical p-ANCA (test code = 85178-5) -1:20 Neg:<1:20 The atypical pANCA pattern has been observed in asignificant percentage of patie nts with ulcerative colitis,primary sclerosing cholangitis and autoimmune hepati tis.Performed at: [facility] [address]Lab Director: Douglas Montez MD, Phone: [phone]. Luke's Health – [facility]. Luke's Medical CenterHeparin-Induced Platelet Hepalppa3675-15-99 06:11:00* Test Item Value Reference Range Interpretation Comments Heparin-Induced Platelet Antibody (test code = 49566-2) 0.224 0.000-0.400 Performed at: [facility] [id number] Plaster Machine Tender: Douglas Montez MD, Phone: [phone]. Luke's Health – [facility] St. [facility]'s Medical Centerp-ANCA Hvoqj0175-43-32 06:11:00* Test Item Value Reference Range Interpretation Comments p-ANCA Titer (test code = 68047-6) -1:20 Neg:<1:20 The presence of positive fluorescence exhibiting P-ANCA orC-ANCA patterns alone is not specific for the diagnosis ofWegener's Granulomatosis (WG) or microscopic polyangiitis.Decisions about treatment should not be based solely onANCA IFA re sults. The [employer] Consensusrecommends follow up testing of po sitive sera with both AK-3 and MPO-ANCA enzyme immunoassays. As many as 5% serum samples are positive only by EIA. Ref. AM J Clin Mrduxe2759;111:507-513.[facility] CenterAtypical n-[id number] 06:11:00* Test Item Value Reference Range Interpretation Comments Atypical p-ANCA (test code = 14287-1) -1:20 Neg:<1:20 The atypical pANCA pattern has been observed in asignificant percentage of patie nts with ulcerative colitis,primary sclerosing cholangitis and autoimmune hepati tis.Performed at: [facility] [address]Lab Director: Douglas Montez MD, Phone: [phone]. Luke's Health – [facility]. Luke's Medical CenterHeparin-Induced Platelet Dtsoflrq8516-15-33 06:11:00* Test Item Value Reference Range Interpretation Comments Heparin-Induced Platelet Antibody (test code = 25503-2) 0.224 0.000-0.400 Performed at: [facility] [id number] Plaster Machine Tender: Douglas Montez MD, Phone: [phone]. Luke's Health – [facility]'s Medical Centerp-ANCA Bquri9243-58-21 06:11:00* Test Item Value Reference Range Interpretation Comments p-ANCA Titer (test code = 33012-3) -1:20 Neg:<1:20 The presence of positive fluorescence exhibiting P-ANCA orC-ANCA patterns alone is not specific for the diagnosis ofWegener's Granulomatosis (WG) or microscopic polyangiitis.Decisions about treatment should not be based solely onANCA IFA re sults. The [employer] Consensusrecommends follow up testing of po sitive sera with both AK-3 and MPO-ANCA enzyme immunoassays. As many as 5% serum samples are positive only by EIA. Ref. AM J Clin Gytqgg9079;111:507-513.[facility] CampusAtypical b-[id number] 06:11:00* Test Item Value Reference Range Interpretation Comments Atypical p-ANCA (test code = 74564-0) -1:20 Neg:<1:20 The atypical pANCA pattern has been observed in asignificant percentage of patie nts with ulcerative colitis,primary sclerosing cholangitis and autoimmune hepati tis.Performed at: [address] [address]Lab Director: Douglas Montez MD, Phone: [phone]. Luke's Health – [facility]. Luke's Medical CenterHeparin-Induced Platelet Bmpxkhpl8520-10-85 06:11:00* Test Item Value Reference Range Interpretation Comments Heparin-Induced Platelet Antibody (test code = 82234-2) 0.224 0.000-0.400 Performed at: [facility] [id number] Plaster Machine Tender: Douglas Montez MD, Phone: [phone]. Luke's Health – [facility] Centerp-ANCA Ityvg4108-68-98 06:11:00* Test Item Value Reference Range Interpretation Comments p-ANCA Titer (test code = 74041-1) -1:20 Neg:<1:20 The presence of positive fluorescence exhibiting P-ANCA orC-ANCA patterns alone is not specific for the diagnosis ofWegener's Granulomatosis (WG) or microscopic polyangiitis.Decisions about treatment should not be based solely onANCA IFA re sults. The [employer] Consensusrecommends follow up testing of po sitive sera with both AK-3 and MPO-ANCA enzyme immunoassays. As many as 5% serum samples are positive only by EIA. Ref. AM J Clin Jhgwhw2686;111:507-513.[facility] CenterAtypical y-[id number] 06:11:00* Test Item Value Reference Range Interpretation Comments Atypical p-ANCA (test code = 99878-0) -1:20 Neg:<1:20 The atypical pANCA pattern has been observed in asignificant percentage of patie nts with ulcerative colitis,primary sclerosing cholangitis and autoimmune hepati tis.Performed at: [facility] [address] [id number]Lab Director: Douglas Montez MD, Phone: [phone]. Luke's [facility] Medical CenterHeparin-Induced Platelet Hltnlwff9254-22-17 06:11:00* Test Item Value Reference Range Interpretation Comments Heparin-Induced Platelet Antibody (test code = 18544-4) 0.224 0.000-0.400 Performed at: [facility] [address] [id number] Plaster Machine Tender: Douglas Montez MD, Phone: [phone]. Luke's [facility]'s Medical Centerp-ANCA Sohqu6361-73-27 06:11:00* Test Item Value Reference Range Interpretation Comments p-ANCA Titer (test code = 10746-0) -1:20 Neg:<1:20 The presence of positive fluorescence exhibiting P-ANCA orC-ANCA patterns alone is not specific for the diagnosis ofWegener's Granulomatosis (WG) or microscopic polyangiitis.Decisions about treatment should not be based solely onANCA IFA re sults. The [employer] Consensusrecommends follow up testing of po sitive sera with both AK-3 and MPO-ANCA enzyme immunoassays. As many as 5% serum samples are positive only by EIA. Ref. AM J Clin Noatcd7704;111:507-513.[facility] CenterAtypical [id number] 06:11:00* Test Item Value Reference Range Interpretation Comments Atypical p-ANCA (test code = 07024-0) -1:20 Neg:<1:20 The atypical pANCA pattern has been observed in asignificant percentage of patie nts with ulcerative colitis,primary sclerosing cholangitis and autoimmune hepati tis.Performed at: [facility] [address]Lab Director: Douglas Montez MD, Phone: [phone]. Luke's [facility] Medical CenterHeparin-Induced Platelet Gvytirlp7117-61-25 06:11:00* Test Item Value Reference Range Interpretation Comments Heparin-Induced Platelet Antibody (test code = 65341-2) 0.224 0.000-0.400 Performed at: [facility] [id number] Plaster Machine Tender: Douglas Montez MD, Phone: [phone]. Luke's Health – [facility]'s Medical Centerp-ANCA Wzjuy5864-90-09 06:11:00* Test Item Value Reference Range Interpretation Comments p-ANCA Titer (test code = 64236-8) <1:20 Neg:<1:20 The presence of positive fluorescence exhibiting P-ANCA orC-ANCA patterns alone is not specific for the diagnosis ofWegener's Granulomatosis (WG) or microscopic polyangiitis.Decisions about treatment should not be based solely onANCA IFA re sulcatherine. The [employer] Consensusrecommends follow up testing of po sitive sera with both AK-3 and MPO-ANCA enzyme immunoassays. As many as 5% serum samples are positive only by EIA. Ref. AM J Clin Xtdjig8738;111:507-513.[facility] CenterAtypical s-[id number] 06:11:00* Test Item Value Reference Range Interpretation Comments Atypical p-ANCA (test code = 24766-2) <1:20 Neg:<1:20 The atypical pANCA pattern has been observed in asignificant percentage of patie nts with ulcerative colitis,primary sclerosing cholangitis and autoimmune hepati tis.Performed at: [facility] [address] [address]Lab Director: Douglas Montez MD, Phone: [phone]. Luke's Health – [facility]'s Medical Centerc-ANCA Mwxmm0374-59-97 06:04:00* Test Item Value Reference Range Interpretation Comments c-ANCA Titer (test code = 52270-5) -1:20 Neg:<1:20 [facility] CenterAnti-Proteinase 3 (c-ANCA)2017-09-06 06:04:00* Test Item Value Reference Range Interpretation Comments Anti-Proteinase 3 (c-ANCA) (test code = 29232-2) -3.5 0.0-3 .5 Performed at: [address] [id number] Plaster Machine Tender: Douglas Montez MD, Phone: [phone]. Luke's Health – [facility]'s Medical Centerc-ANCA Nnjft8387-41-79 06:04:00* Test Item Value Reference Range Interpretation Comments c-ANCA Titer (test code = 39805-9) -1:20 Neg:<1:20 [facility] CenterAnti-Proteinase 3 (c-ANCA)2017-09-06 06:04:00* Test Item Value Reference Range Interpretation Comments Anti-Proteinase 3 (c-ANCA) (test code = 56071-3) -3.5 0.0-3 .5 Performed at: [address] [id number] Plaster Machine Tender: Douglas Montez MD, Phone: [phone]. Luke's Health – [facility]'s Medical Centerc-ANCA Jyxiw2702-25-73 06:04:00* Test Item Value Reference Range Interpretation Comments c-ANCA Titer (test code = 76019-8) -1:20 Neg:<1:20 [facility] CenterAnti-Proteinase 3 (c-ANCA)2017-09-06 06:04:00* Test Item Value Reference Range Interpretation Comments Anti-Proteinase 3 (c-ANCA) (test code = 83539-6) -3.5 0.0-3 .5 Performed at: [address] [id number] Plaster Machine Tender: Douglas Montez MD, Phone: [phone]. Luke's Health – [facility] St[facility]'s Medical Centerc-ANCA Vxzbk2263-04-70 06:04:00* Test Item Value Reference Range Interpretation Comments c-ANCA Titer (test code = 04237-3) -1:20 Neg:<1:20 [facility] CenterAnti-Proteinase 3 (c-ANCA)2017-09-06 06:04:00* Test Item Value Reference Range Interpretation Comments Anti-Proteinase 3 (c-ANCA) (test code = 79389-4) -3.5 0.0-3 .5 Performed at: [facility] [id number] Plaster Machine Tender: Douglas Montez MD, Phone: [phone]. Luke's Health – [facility]'s Medical Centerc-ANCA Trouz3690-48-50 06:04:00* Test Item Value Reference Range Interpretation Comments c-ANCA Titer (test code = 18250-9) -1:20 Neg:<1:20 [facility] CenterAnti-Proteinase 3 (c-ANCA)2017-09-06 06:04:00* Test Item Value Reference Range Interpretation Comments Anti-Proteinase 3 (c-ANCA) (test code = 44578-3) -3.5 0.0-3 .5 Performed at: [facility] [id number] Plaster Machine Tender: Douglas Montez MD, Phone: [phone]. Luke's Health – [facility]lor St. Luke's Medical Centerc-ANCA Rbira4838-59-57 06:04:00* Test Item Value Reference Range Interpretation Comments c-ANCA Titer (test code = 65880-2) -1:20 Neg:<1:20 [facility] CenterAnti-Proteinase 3 (c-ANCA)2017-09-06 06:04:00* Test Item Value Reference Range Interpretation Comments Anti-Proteinase 3 (c-ANCA) (test code = 66534-0) -3.5 0.0-3 .5 Performed at: [facility] [id number] Plaster Machine Tender: Douglas Montez MD, Phone: [phone]. Luke's Health – [facility]'s Medical Centerc-ANCA Hsxer3991-07-30 06:04:00* Test Item Value Reference Range Interpretation Comments c-ANCA Titer (test code = 61341-9) <1:20 Neg:<1:20 [facility] CenterAnti-Proteinase 3 (c-ANCA)2017-09-06 06:04:00* Test Item Value Reference Range Interpretation Comments Anti-Proteinase 3 (c-ANCA) (test code = 76261-6) <3.5 0.0-3 .5 Performed at: [address] [id number] Plaster Machine Tender: Douglas Montez MD, Phone: [phone]. Luke's Health – [facility] St. Luke's Medical CenterMyeloperoxidase Dyzgepoi8265-23-40 06:03:00* Test Item Value Reference Range Interpretation Comments Myeloperoxidase Antibody (test code = 30489-4) -9.0 0.0-9.0 [facility] CenterMyeloperoxidase Hqhhjdiv9005-59-20 06:03:00* Test Item Value Reference Range Interpretation Comments Myeloperoxidase Antibody (test code = 77055-1) -9.0 0.0-9.0 [facility] CenterMyeloperoxidase Kolpmxka1970-35-00 06:03:00* Test Item Value Reference Range Interpretation Comments Myeloperoxidase Antibody (test code = 69029-5) -9.0 0.0-9.0 [facility] CenterMyeloperoxidase Wmabodid4073-80-12 06:03:00* Test Item Value Reference Range Interpretation Comments Myeloperoxidase Antibody (test code = 46276-7) -9.0 0.0-9.0 [facility] CenterMyeloperoxidase Kdtfibvd8381-06-95 06:03:00* Test Item Value Reference Range Interpretation Comments Myeloperoxidase Antibody (test code = 16198-3) -9.0 0.0-9.0 [facility] CenterMyeloperoxidase Mzzofokf9585-09-47 06:03:00* Test Item Value Reference Range Interpretation Comments Myeloperoxidase Antibody (test code = 91220-5) -9.0 0.0-9.0 [facility] CenterMyeloperoxidase Vyyrhftv8025-45-50 06:03:00* Test Item Value Reference Range Interpretation Comments Myeloperoxidase Antibody (test code = 72385-2) <9.0 0.0-9.0 [facility] Medical CenterUrine Random Total Phprakw3825-41-40 13:53:00* Test Item Value Reference Range Interpretation Comments Urine Random Total Protein (test code = 2888-6) 17.0 1-[address] [facility] CenterUrine Collection Dhph3774-14-49 13:53:00 * Test Item Value Reference Range Interpretation Comments Urine Collection Time (test code = 14556-9) 24 [facility] CenterUrine Total Pebdkp2958-38-02 13:53:00* Test Item Value Reference Range Interpretation Comments Urine Total Volume (test code = 90661-6) 2075 800-[address] [facility] [facility] CenterUrine Vbdcqhrmvw3978-98-56 13:53:00* Test Item Value Reference Range Interpretation Comments Urine Creatinine (test code = 2161-8) 45.11 47-[address] [facility] CenterUrine Creatinine 24 Kgkw0489-83-65 13:53:00* Test Item Value Reference Range Interpretation Comments Urine Creatinine 24 Hour (test code = 2162-6) 982 359-2868 [facility] CenterCreatinine Pewroqbcs1949-91-37 13:53:00* Test Item Value Reference Range Interpretation Comments Creatinine Clearance (test code = 38380-5) 13 88-[address] [facility] CenterUrine Total Protein 24 Fwss2928-65-04 13:53:00* Test Item Value Reference Range Interpretation Comments Urine Total Protein 24 Hour (test code = 2889-4) 352.7 50-[address] [facility] CenterUrine Random Total Glubiwq3881-45-65 13:53:00* Test Item Value Reference Range Interpretation Comments Urine Random Total Protein (test code = 2888-6) 17.0 1-[address] [facility] CenterUrine Collection Dzly2208-77-84 13:53:00 * Test Item Value Reference Range Interpretation Comments Urine Collection Time (test code = 84186-9) 24 [facility] CenterUrine Total Xuatbv4130-43-14 13:53:00* Test Item Value Reference Range Interpretation Comments Urine Total Volume (test code = 27686-4) 2074 800-[address] [facility] [facility] CenterUrine Lxzavhpzdg6485-96-73 13:53:00* Test Item Value Reference Range Interpretation Comments Urine Creatinine (test code = 2161-8) 45.11 47-[address] [facility] CenterUrine Creatinine 24 Eijc4772-81-21 13:53:00* Test Item Value Reference Range Interpretation Comments Urine Creatinine 24 Hour (test code = 2162-6) 955 237-8695 [facility] CenterCreatinine Kknribrmp7638-47-06 13:53:00* Test Item Value Reference Range Interpretation Comments Creatinine Clearance (test code = 64611-9) 13 88-[address] [facility] CenterUrine Total Protein 24 Uozi5904-13-20 13:53:00* Test Item Value Reference Range Interpretation Comments Urine Total Protein 24 Hour (test code = 2889-4) 352.7 50-[address] [facility] CenterUrine Random Total Tjlibuc2844-89-95 13:53:00* Test Item Value Reference Range Interpretation Comments Urine Random Total Protein (test code = 2888-6) 17.0 1-[address] [facility] CenterUrine Collection Ikcc4963-44-68 13:53:00 * Test Item Value Reference Range Interpretation Comments Urine Collection Time (test code = 81706-4) 24 [facility] CenterUrine Total Bvghzl7603-50-81 13:53:00* Test Item Value Reference Range Interpretation Comments Urine Total Volume (test code = 06196-9) 2074 800-[address] [facility] CenterUrine Jmljktavey4371-41-13 13:53:00* Test Item Value Reference Range Interpretation Comments Urine Creatinine (test code = 2161-8) 45.11 47-[address] [facility] CenterUrine Creatinine 24 Blai9395-12-69 13:53:00* Test Item Value Reference Range Interpretation Comments Urine Creatinine 24 Hour (test code = 2162-6) 222 849-0832 [facility] CenterCreatinine Zmwjgnewa9258-94-69 13:53:00* Test Item Value Reference Range Interpretation Comments Creatinine Clearance (test code = 08159-5) 13 88-[address] [facility] CenterUrine Total Protein 24 Mrym7706-06-57 13:53:00* Test Item Value Reference Range Interpretation Comments Urine Total Protein 24 Hour (test code = 2889-4) 352.7 50-[address] [facility] CenterUrine Random Total Fuewsif3097-70-58 13:53:00* Test Item Value Reference Range Interpretation Comments Urine Random Total Protein (test code = 2888-6) 17.0 1-[address] [facility] CenterUrine Collection Udpd9523-70-81 13:53:00 * Test Item Value Reference Range Interpretation Comments Urine Collection Time (test code = 64693-4) 24 [facility] CenterUrine Total Hbrxsa6002-73-37 13:53:00* Test Item Value Reference Range Interpretation Comments Urine Total Volume (test code = 20242-2) 2075 800-[address] [facility] CenterUrine Dftcrpuikj7313-32-37 13:53:00* Test Item Value Reference Range Interpretation Comments Urine Creatinine (test code = 2161-8) 45.11 47-[address] [facility] CenterUrine Creatinine 24 Tzdc5724-64-07 13:53:00* Test Item Value Reference Range Interpretation Comments Urine Creatinine 24 Hour (test code = 2162-6) 912 630-3514 [facility] CenterCreatinine Iqizxgwgu0583-53-17 13:53:00* Test Item Value Reference Range Interpretation Comments Creatinine Clearance (test code = 92724-7) 13 88-[address] [facility] CenterUrine Total Protein 24 Bgfq6734-09-75 13:53:00* Test Item Value Reference Range Interpretation Comments Urine Total Protein 24 Hour (test code = 2889-4) 352.7 50-[address] [facility] CenterUrine Random Total Wtndmtr5780-75-05 13:53:00* Test Item Value Reference Range Interpretation Comments Urine Random Total Protein (test code = 2888-6) 17.0 1-[address] [facility] CenterUrine Collection Lbec3089-39-28 13:53:00 * Test Item Value Reference Range Interpretation Comments Urine Collection Time (test code = 27511-6) 24 [facility] CenterUrine Total Azlbjc3069-43-17 13:53:00* Test Item Value Reference Range Interpretation Comments Urine Total Volume (test code = 22040-9) 2074 800-[address] [facility] CenterUrine Tzdtyrusmj8824-73-77 13:53:00* Test Item Value Reference Range Interpretation Comments Urine Creatinine (test code = 2161-8) 45.11 47-[address] CenterUrine Creatinine 24 Vfyw7827-33-03 13:53:00* Test Item Value Reference Range Interpretation Comments Urine Creatinine 24 Hour (test code = 2162-6) 949 195-3575 [facility] CenterCreatinine Oejfyildg4746-67-94 13:53:00* Test Item Value Reference Range Interpretation Comments Creatinine Clearance (test code = 57233-3) 13 88-[address] [facility] CenterUrine Total Protein 24 Ictx7791-52-34 13:53:00* Test Item Value Reference Range Interpretation Comments Urine Total Protein 24 Hour (test code = 2889-4) 352.7 50-[address] CenterUrine Random Total Milbwdk7623-84-53 13:53:00* Test Item Value Reference Range Interpretation Comments Urine Random Total Protein (test code = 2888-6) 17.0 1-[address] [facility] CenterUrine Collection Dvke8044-01-13 13:53:00 * Test Item Value Reference Range Interpretation Comments Urine Collection Time (test code = 43759-2) 24 [facility] CenterUrine Total Gdffjb4577-37-70 13:53:00* Test Item Value Reference Range Interpretation Comments Urine Total Volume (test code = 64002-4) 2074 800-[address] [facility] CenterUrine Bgbaixbqzg1969-32-47 13:53:00* Test Item Value Reference Range Interpretation Comments Urine Creatinine (test code = 2161-8) 45.11 47-[address] CenterUrine Creatinine 24 Mqvw6506-51-79 13:53:00* Test Item Value Reference Range Interpretation Comments Urine Creatinine 24 Hour (test code = 2162-6) 260 238-2557 [facility] CenterCreatinine Duqfcdmgn4766-49-73 13:53:00* Test Item Value Reference Range Interpretation Comments Creatinine Clearance (test code = 83480-8) 13 88-[address] [facility] CenterUrine Total Protein 24 Desn9759-20-53 13:53:00* Test Item Value Reference Range Interpretation Comments Urine Total Protein 24 Hour (test code = 2889-4) 352.7 50-[address] [facility] CenterUrine Random Total Yfsppue4185-68-69 13:53:00* Test Item Value Reference Range Interpretation Comments Urine Random Total Protein (test code = 2888-6) 17.0 1-[address] [facility] CenterUrine Collection Cemr9708-22-28 13:53:00 * Test Item Value Reference Range Interpretation Comments Urine Collection Time (test code = 17845-2) 24 [facility] CenterUrine Total Edqcjp6497-31-31 13:53:00* Test Item Value Reference Range Interpretation Comments Urine Total Volume (test code = 34831-7) 2075 800-[address] [facility] [facility] CenterUrine Jjupcpzgtr4330-56-24 13:53:00* Test Item Value Reference Range Interpretation Comments Urine Creatinine (test code = 2161-8) 45.11 47-[address] CenterUrine Creatinine 24 Bknl4595-33-43 13:53:00* Test Item Value Reference Range Interpretation Comments Urine Creatinine 24 Hour (test code = 2162-6) 940 952-7527 [facility] CenterCreatinine Amcaoehag4474-05-52 13:53:00* Test Item Value Reference Range Interpretation Comments Creatinine Clearance (test code = 27803-4) 13 88-[address] [facility] CenterUrine Total Protein 24 Ubya8297-99-33 13:53:00* Test Item Value Reference Range Interpretation Comments Urine Total Protein 24 Hour (test code = 2889-4) 352.7 50-[address] [facility] CenterAnti-Nuclear Antibody Lprezo5043-13-22 13:41:00* Test Item Value Reference Range Interpretation Comments Anti-Nuclear Antibody Screen (test code = 5048-4) Negative . Negative <1:80 Borderline 1:80 Positive > 1:80Performed at: [address] [id number] 3Lab Director: Ga Damian MD, Phone: [phone] [place], [place] [address]Anti-Nuclear Antibody Knsygl8885-48-22 13:41:00* Test Item Value Reference Range Interpretation Comments Anti-Nuclear Antibody Screen (test code = 5048-4) Negative . Negative <1:80 Borderline 1:80 Positive > 1:80Performed at: [address] [id number] 3Lab Director: Ga Damian MD, Phone: [phone]. Luke's Health – [facility]lor St. Luke's Medical CenterAnti-Nuclear Antibody Noonot2520-71-13 13:41:00* Test Item Value Reference Range Interpretation Comments Anti-Nuclear Antibody Screen (test code = 5048-4) Negative . Negative <1:80 Borderline 1:80 Positive > 1:80Performed at: [address] [id number] 3Lab Director: Ga Damian MD, Phone: [phone] [place], [place] [address]Anti-Nuclear Antibody Yoifqu1174-02-10 13:41:00* Test Item Value Reference Range Interpretation Comments Anti-Nuclear Antibody Screen (test code = 5048-4) Negative . Negative <1:80 Borderline 1:80 Positive > 1:80Performed at: [address] [id number] 3Lab Director: Ga Damian MD, Phone: [phone]. Luke's Health – [facility]lor [facility] Luke's Medical CenterAnti-Nuclear Antibody Lmhxnu9316-56-60 13:41:00* Test Item Value Reference Range Interpretation Comments Anti-Nuclear Antibody Screen (test code = 5048-4) Negative . Negative <1:80 Borderline 1:80 Positive > 1:80Performed at: [address] [id number] 3Lab Director: Ga Damian MD, Phone: [phone]. Luke's Health – [facility]'s Medical CenterAnti-Nuclear Antibody Vyuqzh6304-06-61 13:41:00* Test Item Value Reference Range Interpretation Comments Anti-Nuclear Antibody Screen (test code = 5048-4) Negative . Negative <1:80 Borderline 1:80 Positive > 1:80Performed at: [address] [id number] 3Lab Director: Ga Damian MD, Phone: [phone]. Luke's Health – [facility]lor [facility]. Luke's Medical CenterAnti-Nuclear Antibody Cqbwqs1252-39-77 13:41:00* Test Item Value Reference Range Interpretation Comments Anti-Nuclear Antibody Screen (test code = 5048-4) Negative . Negative <1:80 Borderline 1:80 Positive > 1:80Performed at: [facility] [id number] 3Lab Director: Ga Damian MD, Phone: [phone]. Luke's Health – Baylor St. Luke's Medical CenterUrine Tvcvzguoosdfsh5483-96-30 13:32:00* Test Item Value Reference Range Interpretation Comments Urine Immunofixation (test code = 003422949) Comment . An apparent normal immunofixation pattern.Performed at: [address] [id number] Director: Ga Damian MD, Phone: [phone] at: [address] [id number] Director: BEATRICE Beck MD, Phone: [phone]. Luke's Health – [facility] St[facility] Luke's Medical CenterUrine Scbtcab1237-61-73 13:32:00* Test Item Value Reference Range Interpretation Comments Urine Protein (test code = 2888-6) 26.[address] [facility] CenterUrine Jwpeazn2589-80-59 13:32:00* Test Item Value Reference Range Interpretation Comments Urine Albumin (test code = 24508-6) 39.[address] [facility] CenterUrine Yeqmz-5-Bncfrjsy1908-02-20 13:32:00 * Test Item Value Reference Range Interpretation Comments Urine Ygddf-3-Srjclrcu (test code = 68772-6) 3.[address] CenterUrine Lhhfu-9-Ffuszduds1674-02-20 13:32:00* Test Item Value Reference Range Interpretation Comments Urine Qrisq-0-Cskigomwf (test code = 14819-5) 7.[address] CenterUrine Beta Oazykkhx6149-58-59 13:32:00* Test Item Value Reference Range Interpretation Comments Urine Beta Globulin (test code = 31150-1) 18.[address] [facility] CenterUrine Gamma Uuetiylm5444-59-95 13:32:00* Test Item Value Reference Range Interpretation Comments Urine Gamma Globulin (test code = 53610-1) 31.[address] CenterUrine Random PEP M-Colt %2017-09-05 13:32:00* Test Item Value Reference Range Interpretation Comments Urine Random PEP M-Colt % (test code = 24722-2) Not Observed Not O bserved [facility] Medical CenterProtein Electrophoresis Bstx8802-71-94 13:32:00* Test Item Value Reference Range Interpretation Comments Protein Electrophoresis Note (test code = Protein Electropho resis Note) Comment . Protein electrophoresis scan will follow via computer,mail, or small engine mechanic delivery. [facility] CenterUrine Bfmpdcdrlsyiqt0668-01-80 13:32:00* Test Item Value Reference Range Interpretation Comments Urine Immunofixation (test code = 048164605) Comment . An apparent normal immunofixation pattern.Performed at: - [facility] [id number] Director: Ga Damian MD, Phone: [phone] at: - [facility] [address] [id number] Director: BEATRICE Beck MD, Phone: [phone]. [facility] CenterUrine Tutzbxf5886-73-13 13:32:00* Test Item Value Reference Range Interpretation Comments Urine Protein (test code = 2888-6) 26.[address] [facility] CenterUrine Uziddvs5635-82-36 13:32:00* Test Item Value Reference Range Interpretation Comments Urine Albumin (test code = 46048-8) 39.[address] [facility] CenterUrine Jmpby-7-Boobngvo1101-02-20 13:32:00 * Test Item Value Reference Range Interpretation Comments Urine Bolwv-8-Egkmbqla (test code = 86806-3) 3.[address] [facility] CenterUrine Rrqvc-8-Xcvjxyfwk4979-02-20 13:32:00* Test Item Value Reference Range Interpretation Comments Urine Dfjwb-8-Gdaxcfenl (test code = 61551-4) 7.[address] CenterUrine Beta Kajrzpcp5134-80-44 13:32:00* Test Item Value Reference Range Interpretation Comments Urine Beta Globulin (test code = 01673-2) 18.[address] [facility] CenterUrine Gamma Lmihfxfb5109-90-86 13:32:00* Test Item Value Reference Range Interpretation Comments Urine Gamma Globulin (test code = 80205-2) 31.[address] [facility] CenterUrine Random PEP M-Colt %2017-09-05 13:32:00* Test Item Value Reference Range Interpretation Comments Urine Random PEP M-Colt % (test code = 93758-0) Not Observed Not O bserved [facility] CenterProtein Electrophoresis Lqmz2483-47-18 13:32:00* Test Item Value Reference Range Interpretation Comments Protein Electrophoresis Note (test code = Protein Electropho resis Note) Comment . Protein electrophoresis scan will follow via computer,mail, or small engine mechanic delivery. [facility] CenterUrine Djgwojsirwqqcv4362-53-58 13:32:00* Test Item Value Reference Range Interpretation Comments Urine Immunofixation (test code = 964065934) Comment . An apparent normal immunofixation pattern.Performed at: HD - [facility] [id number] Director: Ga Damian MD, Phone: [phone] at: DA - [facility] [address] [id number] Director: BEATRICE Beck MD, Phone: [phone]. Luke[facility] CenterUrine Obrgbkq6120-56-54 13:32:00* Test Item Value Reference Range Interpretation Comments Urine Protein (test code = 2888-6) 26.[address] CenterUrine Dsnicxv0258-82-13 13:32:00* Test Item Value Reference Range Interpretation Comments Urine Albumin (test code = 63701-0) 39.[address] [facility] CenterUrine Accyd-1-Hritjmcy6504-02-20 13:32:00 * Test Item Value Reference Range Interpretation Comments Urine Gzmbd-5-Zubnuftz (test code = 23045-2) 3.[address] [facility] CenterUrine Kyhnj-1-Faksbxrup4226-02-20 13:32:00* Test Item Value Reference Range Interpretation Comments Urine Vrbnc-8-Hujlaijow (test code = 22590-4) 7.[address] [facility] CenterUrine Beta Fmzkmgmy6392-19-99 13:32:00* Test Item Value Reference Range Interpretation Comments Urine Beta Globulin (test code = 81260-3) 18.[address] [facility] CenterUrine Gamma Wfuqliee3839-81-69 13:32:00* Test Item Value Reference Range Interpretation Comments Urine Gamma Globulin (test code = 24138-6) 31.[address] [facility] CenterUrine Random PEP M-Colt %2017-09-05 13:32:00* Test Item Value Reference Range Interpretation Comments Urine Random PEP M-Colt % (test code = 34972-2) Not Observed Not O bserved [facility] CenterProtein Electrophoresis Znfj8474-45-86 13:32:00* Test Item Value Reference Range Interpretation Comments Protein Electrophoresis Note (test code = Protein Electropho resis Note) Comment . Protein electrophoresis scan will follow via computer,mail, or small engine mechanic delivery. [facility] CenterUrine Lywkmlhhxkxflc0476-79-25 13:32:00* Test Item Value Reference Range Interpretation Comments Urine Immunofixation (test code = 270447526) Comment . An apparent normal immunofixation pattern.Performed at: - [facility] [id number] Director: Ga Damian MD, Phone: [phone] at: DA - [facility] N[address] [id number] Director: BEATRICE Beck MD, Phone: [phone]. Luke's Health – [facility] Medical CenterUrine Axeqbhi2928-49-53 13:32:00* Test Item Value Reference Range Interpretation Comments Urine Protein (test code = 2888-6) 26.[address] CenterUrine Gtvuhkn5275-11-71 13:32:00* Test Item Value Reference Range Interpretation Comments Urine Albumin (test code = 23741-2) 39.[address] [facility] CenterUrine Ycamk-7-Yaqedbte2522-02-20 13:32:00 * Test Item Value Reference Range Interpretation Comments Urine Rtnuw-1-Wahzqetc (test code = 74262-7) 3.[address] [facility] CenterUrine Ufbnl-7-Ypzbjlicw2537-02-20 13:32:00* Test Item Value Reference Range Interpretation Comments Urine Oxfvz-2-Pmxtuzjly (test code = 38722-9) 7.[address] [facility] CenterUrine Beta Laztesxr1166-03-65 13:32:00* Test Item Value Reference Range Interpretation Comments Urine Beta Globulin (test code = 37294-8) 18.[address] [facility] CenterUrine Gamma Fxxgdnwn8533-04-64 13:32:00* Test Item Value Reference Range Interpretation Comments Urine Gamma Globulin (test code = 86604-3) 31.[address] [facility] CenterUrine Random PEP M-Colt %2017-09-05 13:32:00* Test Item Value Reference Range Interpretation Comments Urine Random PEP M-Colt % (test code = 71893-2) Not Observed Not O bserved [facility] CenterProtein Electrophoresis Gfaw6932-02-59 13:32:00* Test Item Value Reference Range Interpretation Comments Protein Electrophoresis Note (test code = Protein Electropho resis Note) Comment . Protein electrophoresis scan will follow via computer,mail, or small engine mechanic delivery. [facility] CenterUrine Unwwcwdhxkyupa7547-11-63 13:32:00* Test Item Value Reference Range Interpretation Comments Urine Immunofixation (test code = 996226349) Comment . An apparent normal immunofixation pattern.Performed at: - [address] [id number] Director: Ga Damian MD, Phone: [phone] at: - [facility] [address], [place], [place] [id number] Director: BEATRICE Beck MD, Phone: [phone] [facility]Urine Potpwqb9899-25-65 13:32:00* Test Item Value Reference Range Interpretation Comments Urine Protein (test code = 2888-6) 26.[address] CenterUrine Qwsoqnj8440-73-67 13:32:00* Test Item Value Reference Range Interpretation Comments Urine Albumin (test code = 15730-8) 39.[address] [facility] CenterUrine Vllfu-4-Xufnfybk6947-02-20 13:32:00 * Test Item Value Reference Range Interpretation Comments Urine Fmfgk-6-Wahcycqd (test code = 49162-7) 3.[address] [facility] CenterUrine Weanx-1-Xzzxrnsjl6465-02-20 13:32:00* Test Item Value Reference Range Interpretation Comments Urine Ofwxk-0-Svyfirnxa (test code = 75435-1) 7.[address] [facility] CenterUrine Beta Bjfaevky2025-55-46 13:32:00* Test Item Value Reference Range Interpretation Comments Urine Beta Globulin (test code = 55486-9) 18.[address] [facility] CenterUrine Gamma Connihjz6923-75-69 13:32:00* Test Item Value Reference Range Interpretation Comments Urine Gamma Globulin (test code = 03254-5) 31.[address] [facility] CenterUrine Random PEP M-Colt %2017-09-05 13:32:00* Test Item Value Reference Range Interpretation Comments Urine Random PEP M-Colt % (test code = 60201-9) Not Observed Not O bserved [facility] CenterProtein Electrophoresis Mvtd9478-61-71 13:32:00* Test Item Value Reference Range Interpretation Comments Protein Electrophoresis Note (test code = Protein Electropho resis Note) Comment . Protein electrophoresis scan will follow via computer,mail, or small engine mechanic delivery. [facility] CenterUrine Btvbuyueruzbdr6173-16-15 13:32:00* Test Item Value Reference Range Interpretation Comments Urine Immunofixation (test code = 886048309) Comment . An apparent normal immunofixation pattern.Performed at: [address] [id number] Director: Ga Damian MD, Phone: [phone] at: DA - [facility] [address] [address], [place], [place] [id number] Director: BEATRICE Beck MD, Phone: [phone]. Luke's Health – [facility]lor St. [facility]'s Medical CenterUrine Yvbzmxw3615-29-92 13:32:00* Test Item Value Reference Range Interpretation Comments Urine Protein (test code = 2888-6) 26.[address] CenterUrine Pskepip1411-06-28 13:32:00* Test Item Value Reference Range Interpretation Comments Urine Albumin (test code = 68237-4) 39.[address] [facility] CenterUrine Qicmo-9-Egpuxfpd7128-02-20 13:32:00 * Test Item Value Reference Range Interpretation Comments Urine Srafr-2-Axvbdarz (test code = 01654-4) 3.[address] [facility] CenterUrine Qaieu-3-Erhrurpmf9085-02-20 13:32:00* Test Item Value Reference Range Interpretation Comments Urine Wtnff-4-Ngdicqmjq (test code = 81172-8) 7.[address] [facility] CenterUrine Beta Gkhwjxzy7091-30-33 13:32:00* Test Item Value Reference Range Interpretation Comments Urine Beta Globulin (test code = 68654-9) 18.[address] [facility] CenterUrine Gamma Arzalhrq3234-82-84 13:32:00* Test Item Value Reference Range Interpretation Comments Urine Gamma Globulin (test code = 50830-6) 31.[address] [facility] CenterUrine Random PEP M-Colt %2017-09-05 13:32:00* Test Item Value Reference Range Interpretation Comments Urine Random PEP M-Colt % (test code = 12225-1) Not Observed Not O bserved [facility] CenterProtein Electrophoresis Krjp4291-77-28 13:32:00* Test Item Value Reference Range Interpretation Comments Protein Electrophoresis Note (test code = Protein Electropho resis Note) Comment . Protein electrophoresis scan will follow via computer,mail, or small engine mechanic delivery. [facility] CenterUrine Izyjmucrttgigl9267-87-75 13:32:00* Test Item Value Reference Range Interpretation Comments Urine Immunofixation (test code = 395739947) Comment . An apparent normal immunofixation pattern.Performed at: HD - [facility] [address] [id number] Director: Ga Damian MD, Phone: [phone] at: DA - [facility] [address] [address], [place], [place] [id number] Director: BEATRICE Beck MD, Phone: [phone]. Luke's Health – [facility] St. [facility]'s Medical CenterUrine Pljeaaw1954 13:32:00* Test Item Value Reference Range Interpretation Comments Urine Protein (test code = 2888-6) 26.[address] CenterUrine Yhpeqam1187-94-79 13:32:00* Test Item Value Reference Range Interpretation Comments Urine Albumin (test code = 02775-8) 39.[address] [facility] CenterUrine Copys-0-Uvbsermn1514-02-20 13:32:00 * Test Item Value Reference Range Interpretation Comments Urine Enmjc-4-Izqtdccq (test code = 18184-5) 3.[address] [facility] CenterUrine Shmde-3-Jqlmpkxib4538-02-20 13:32:00* Test Item Value Reference Range Interpretation Comments Urine Bixbf-5-Rgrvkfxsn (test code = 35193-6) 7.[address] [facility] CenterUrine Beta Xhohggfw8828-86-61 13:32:00* Test Item Value Reference Range Interpretation Comments Urine Beta Globulin (test code = 81591-5) 18.[address] [facility] CenterUrine Gamma Lktstzzg3288-94-85 13:32:00* Test Item Value Reference Range Interpretation Comments Urine Gamma Globulin (test code = 02846-0) 31.[address] [facility] CenterUrine Random PEP M-Colt %2017-09-05 13:32:00* Test Item Value Reference Range Interpretation Comments Urine Random PEP M-Colt % (test code = 01310-3) Not Observed Not O bserved [facility] CenterProtein Electrophoresis Knua9507-44-29 13:32:00* Test Item Value Reference Range Interpretation Comments Protein Electrophoresis Note (test code = Protein Electropho resis Note) Comment . Protein electrophoresis scan will follow via computer,mail, or small engine mechanic delivery. [facility] Medical CenterRheumatoid Vrrvqd5308-45-89 13:10:00* Test Item Value Reference Range Interpretation Comments Rheumatoid Factor (test code = 16391-5) -10.0 0.0-13.9 Performed at: [address] [id number] Director: Ga Damian MD, Phone: [phone]. Luke's Health – [facility] St. Luke's Medical CenterComplement E46843-83-59 13:10:00* Test Item Value Reference Range Interpretation Comments Complement C3 (test code = 4485-9) 120 82-167 [facility] CenterComplement I80449-34-76 13:10:00* Test Item Value Reference Range Interpretation Comments Complement C4 (test code = 4498-2) 44 [facility] Kisqya6162-93-35 13:10:00* Test Item Value Reference Range Interpretation Comments Rheumatoid Factor (test code = 99991-6) -10.0 0.0-13.9 Performed at: [address] [id number] Director: Ga Damian MD, Phone: [phone]. Luke's Health [facility]'s Medical CenterComplement J69292-30-99 13:10:00* Test Item Value Reference Range Interpretation Comments Complement C3 (test code = 4485-9) 120 82-167 [facility] CenterComplement U81632-73-02 13:10:00* Test Item Value Reference Range Interpretation Comments Complement C4 (test code = 4498-2) [address] [facility] [address] CenterRheumaid Aqdxnd7546-99-73 13:10:00* Test Item Value Reference Range Interpretation Comments Rheumatoid Factor (test code = 31830-1) -10.0 0.0-13.9 Performed at: [address] [id number] Director: Ga Damian MD, Phone: [phone]. Luke's Health [facility]'s Medical CenterComplement S33292-27-93 13:10:00* Test Item Value Reference Range Interpretation Comments Complement C3 (test code = 4485-9) 120 82-167 [facility] CenterComplement L33114-33-40 13:10:00* Test Item Value Reference Range Interpretation Comments Complement C4 (test code = 4498-2) [facility] Mjylik3512-50-78 13:10:00* Test Item Value Reference Range Interpretation Comments Rheumatoid Factor (test code = 54573-1) -10.0 0.0-13.9 Performed at: [facility] [address] [id number] Director: Ga Damian MD, Phone: [phone]. Luke's Health – [facility]. [facility]'s Medical CenterComplement Y92985-98-04 13:10:00* Test Item Value Reference Range Interpretation Comments Complement C3 (test code = 4485-9) 120 82-167 [facility] CenterComplement N23058-44-04 13:10:00* Test Item Value Reference Range Interpretation Comments Complement C4 (test code = 4498-2) [facility]2018-02-19 13:10:00* Test Item Value Reference Range Interpretation Comments Rheumatoid Factor (test code = 93377-3) -10.0 0.0-13.9 Performed at: [facility] [address] [id number] Director: Ga Damian MD, Phone: [phone]. Luke's Health – [facility]lor St. Luke's Medical CenterComplement D67655-19-79 13:10:00* Test Item Value Reference Range Interpretation Comments Complement C3 (test code = 4485-9) 120 82-167 [facility] CenterComplement W30880-67-23 13:10:00* Test Item Value Reference Range Interpretation Comments Complement C4 (test code = 4498-2) [facility] Dhlgyn9951-84-79 13:10:00* Test Item Value Reference Range Interpretation Comments Rheumatoid Factor (test code = 72313-8) -10.0 0.0-13.9 Performed at: HD - [facility] [address] [id number] Director: Ga Damian MD, Phone: [phone]. Luke's [facility] Medical CenterComplement K80439-30-44 13:10:00* Test Item Value Reference Range Interpretation Comments Complement C3 (test code = 4485-9) 120 82-167 [facility] CenterComplement A74422-70-05 13:10:00* Test Item Value Reference Range Interpretation Comments Complement C4 (test code = 4498-2) [address] [facility] CenterRheumatoid Rvfrry2026-87-41 13:10:00* Test Item Value Reference Range Interpretation Comments Rheumatoid Factor (test code = 01691-4) <10.0 0.0-13.9 Performed at: HD - [facility] [address] [id number] Director: Ga Damian MD, Phone: [phone]. Luke's Health – [facility]lor St. Luke's Medical CenterComplement G90900-11-38 13:10:00* Test Item Value Reference Range Interpretation Comments Complement C3 (test code = 4485-9) 120 82-167 [facility] CenterComplement Y74157-12-31 13:10:00* Test Item Value Reference Range Interpretation Comments Complement C4 (test code = 4498-2) [facility] CenterVitamin B12 Oqtna4425-24-51 07:27:00* Test Item Value Reference Range Interpretation Comments Vitamin B12 Level (test code = 94106-9) 150 213-[address] [facility] CenterFolate2018-02-19 07:27:00* Test Item Value Reference Range Interpretation Comments Folate (test code = 2284-8) 8.2 7.0-15.4 [facility] CenterVitamin B12 Sfjbd3648-99-59 07:27:00* Test Item Value Reference Range Interpretation Comments Vitamin B12 Level (test code = 62666-9) 150 213-[address] [facility] CenterFolate2018-02-19 07:27:00* Test Item Value Reference Range Interpretation Comments Folate (test code = 2284-8) 8.2 7.0-15.4 [facility] CenterVitamin B12 Idhzk7118-14-97 07:27:00* Test Item Value Reference Range Interpretation Comments Vitamin B12 Level (test code = 25713-5) 150 213-[address] [facility] CenterFolate2018-02-19 07:27:00* Test Item Value Reference Range Interpretation Comments Folate (test code = 2284-8) 8.2 7.0-15.4 [facility] CenterVitamin B12 Lxvgz1713-43-91 07:27:00* Test Item Value Reference Range Interpretation Comments Vitamin B12 Level (test code = 61105-8) 150 213-[address] [facility] CenterFolate2018-02-19 07:27:00* Test Item Value Reference Range Interpretation Comments Folate (test code = 2284-8) 8.2 7.0-15.4 [facility] CenterVitamin B12 Ldmjt3045-82-51 07:27:00* Test Item Value Reference Range Interpretation Comments Vitamin B12 Level (test code = 86141-6) 150 213-[address] [facility] CenterFolate2018-02-19 07:27:00* Test Item Value Reference Range Interpretation Comments Folate (test code = 2284-8) 8.2 7.0-15.4 [facility] CenterVitamin B12 Pntdi4407-93-86 07:27:00* Test Item Value Reference Range Interpretation Comments Vitamin B12 Level (test code = 12887-0) 150 213-[address] [facility] CenterFolate2018-02-19 07:27:00* Test Item Value Reference Range Interpretation Comments Folate (test code = 2284-8) 8.2 7.0-15.4 [facility] CenterVitamin B12 Xzave5764-81-67 07:27:00* Test Item Value Reference Range Interpretation Comments Vitamin B12 Level (test code = 21851-3) 150 213-[address] [facility] CenterFolate2018-02-19 07:27:00* Test Item Value Reference Range Interpretation Comments Folate (test code = 2284-8) 8.2 7.0-15.4 [facility] CenterHemoglobin A1c Cejtomg2226-81-31 07:26:00 * Test Item Value Reference Range Interpretation Comments Hemoglobin A1c Percent (test code = Hemoglobin A1c Percent) 6.3 4.0-7.0 [facility] CenterHemoglobin A1c Cvghbnm3361-45-31 07:26:00 * Test Item Value Reference Range Interpretation Comments Hemoglobin A1c Percent (test code = Hemoglobin A1c Percent) 6.3 4.0-7.0 [facility] CenterHemoglobin A1c Zufzcbr4435-42-74 07:26:00 * Test Item Value Reference Range Interpretation Comments Hemoglobin A1c Percent (test code = Hemoglobin A1c Percent) 6.3 4.0-7.0 [facility] CenterHemoglobin A1c Nwgnbac5612-68-34 07:26:00 * Test Item Value Reference Range Interpretation Comments Hemoglobin A1c Percent (test code = Hemoglobin A1c Percent) 6.3 4.0-7.0 [facility] CenterHemoglobin A1c Eicmliu4161-63-06 07:26:00 * Test Item Value Reference Range Interpretation Comments Hemoglobin A1c Percent (test code = Hemoglobin A1c Percent) 6.3 4.0-7.0 [facility] CenterHemoglobin A1c Ahlokze7976-35-83 07:26:00 * Test Item Value Reference Range Interpretation Comments Hemoglobin A1c Percent (test code = Hemoglobin A1c Percent) 6.3 4.0-7.0 [facility] CenterHemoglobin A1c Jwpkryy0840-24-45 07:26:00 * Test Item Value Reference Range Interpretation Comments Hemoglobin A1c Percent (test code = Hemoglobin A1c Percent) 6.3 4.0-7.0 [facility] CenterFerritin2018-02-19 07:21:00* Test Item Value Reference Range Interpretation Comments Ferritin (test code = 2276-4) 102.45 4.63-204.00 [facility] CenterFerritin2018-02-19 07:21:00* Test Item Value Reference Range Interpretation Comments Ferritin (test code = 2276-4) 102.45 4.63-204.00 [facility] CenterFerritin2018-02-19 07:21:00* Test Item Value Reference Range Interpretation Comments Ferritin (test code = 2276-4) 102.45 4.63-204.00 [facility] CenterFerritin2018-02-19 07:21:00* Test Item Value Reference Range Interpretation Comments Ferritin (test code = 2276-4) 102.45 4.63-204.00 [facility] CenterFerritin2018-02-19 07:21:00* Test Item Value Reference Range Interpretation Comments Ferritin (test code = 2276-4) 102.45 4.63-204.00 [facility] CenterFerritin2018-02-19 07:21:00* Test Item Value Reference Range Interpretation Comments Ferritin (test code = 2276-4) 102.45 4.63-204.00 [facility]2018-02-19 07:21:00* Test Item Value Reference Range Interpretation Comments Ferritin (test code = 2276-4) 102.45 4.63-204.00 [facility] CenterB-Type Natriuretic Tjzsbne0396-92-54 07:13:00* Test Item Value Reference Range Interpretation Comments B-Type Natriuretic Peptide (test code = 85926-5) 982.5 0-[address] CenterB-Type Natriuretic Dduisbo1119-74-63 07:13:00* Test Item Value Reference Range Interpretation Comments B-Type Natriuretic Peptide (test code = 32107-7) 982.5 0-[address] [facility] CenterB-Type Natriuretic Ziyitxv8510-56-34 07:13:00* Test Item Value Reference Range Interpretation Comments B-Type Natriuretic Peptide (test code = 67651-3) 982.5 0-[address] [facility] CenterB-Type Natriuretic Sdroldn7984-00-11 07:13:00* Test Item Value Reference Range Interpretation Comments B-Type Natriuretic Peptide (test code = 52135-3) 982.5 0-[address] [facility] [facility]ri[facility] Ilerazd2764-44-81 07:13:00* Test Item Value Reference Range Interpretation Comments B-Type Natriuretic Peptide (test code = 83128-6) 982.5 0-[address] [facility] Ptuvexz8472-84-46 07:13:00* Test Item Value Reference Range Interpretation Comments B-Type Natriuretic Peptide (test code = 52125-7) 982.5 0-[address] Zfqinha1704-11-56 07:13:00* Test Item Value Reference Range Interpretation Comments B-Type Natriuretic Peptide (test code = 97147-0) 982.5 0-[address] [facility] [address] CenterPhosphorus Ogyfi4571-85-69 07:12:00* Test Item Value Reference Range Interpretation Comments Phosphorus Level (test code = LTC1388) 5.4 2.3-4.7 H [facility]2018-02-19 07:12:00* Test Item Value Reference Range Interpretation Comments Iron Level (test code = 2498-4) 17 50-[address] CenterTotal Iron Binding Xauljtrr8560-71-68 07:12:00* Test Item Value Reference Range Interpretation Comments Total Iron Binding Capacity (test code = 2500-7) 220 261-[address] CenterPercent Iron Zadpyoqgsh6247-83-61 07:12:00* Test Item Value Reference Range Interpretation Comments Percent Iron Saturation (test code = 2502-3) 8 15-[address] [facility] CenterTransferrin2018-02-19 07:12:00* Test Item Value Reference Range Interpretation Comments Transferrin (test code = 3034-6) 157 180-[address] [facility] CenterPhosphorus Eizrt3546-20-29 07:12:00* Test Item Value Reference Range Interpretation Comments Phosphorus Level (test code = [id number]) 5.4 2.3-4.7 H [facility]2018-02-19 07:12:00* Test Item Value Reference Range Interpretation Comments Iron Level (test code = 2498-4) 17 50-[address] CenterTotal Iron Binding Lsvjqasx2098-90-73 07:12:00* Test Item Value Reference Range Interpretation Comments Total Iron Binding Capacity (test code = 2500-7) 220 261-[address] CenterPercent Iron Zkbioikdxz1125-45-25 07:12:00* Test Item Value Reference Range Interpretation Comments Percent Iron Saturation (test code = 2502-3) 8 15-[address] [facility] CenterTransferrin2018-02-19 07:12:00* Test Item Value Reference Range Interpretation Comments Transferrin (test code = 3034-6) 157 180-[address] [facility] CenterPhosphorus Xxfya6524-88-48 07:12:00* Test Item Value Reference Range Interpretation Comments Phosphorus Level (test code = LFG0869) 5.4 2.3-4.[address] CenterIroU.[facility] 1Afova7379-53-11 07:12:00* Test Item Value Reference Range Interpretation Comments Iron Level (test code = 2498-4) 17 50-[address] CenterTotal Iron Binding Reoxawyd7128-01-90 07:12:00* Test Item Value Reference Range Interpretation Comments Total Iron Binding Capacity (test code = 2500-7) 220 261-[address] [facility] CenterPercent Iron Byzfsjpvyi9148-77-87 07:12:00* Test Item Value Reference Range Interpretation Comments Percent Iron Saturation (test code = 2502-3) 8 15-[address] [facility] CenterTransferrin2018-02-19 07:12:00* Test Item Value Reference Range Interpretation Comments Transferrin (test code = 3034-6) 157 180-[address] CenterPhosphorus Gsmph7904-89-38 07:12:00* Test Item Value Reference Range Interpretation Comments Phosphorus Level (test code = YEG4998) 5.4 2.3-4.[address] [facility] CenterIro Vcsjc9473-06-91 07:12:00* Test Item Value Reference Range Interpretation Comments Iron Level (test code = 2498-4) 17 50-[address] [facility] CenterTotal Iron Binding Zjmilyfi5391-10-39 07:12:00* Test Item Value Reference Range Interpretation Comments Total Iron Binding Capacity (test code = 2500-7) 220 261-[address] [facility] CenterPercent Iron Edyzezbewe7187-84-54 07:12:00* Test Item Value Reference Range Interpretation Comments Percent Iron Saturation (test code = 2502-3) 8 15-[address] CenterTransferrin2018-02-19 07:12:00* Test Item Value Reference Range Interpretation Comments Transferrin (test code = 3034-6) 157 180-[address] [facility] CenterPhosphorus Qqpwv8760-52-20 07:12:00* Test Item Value Reference Range Interpretation Comments Phosphorus Level (test code = LFX8135) 5.4 2.3-4.[address] [facility] CenterIron Mwdxi2094-91-22 07:12:00* Test Item Value Reference Range Interpretation Comments Iron Level (test code = 2498-4) 17 50-[address] [facility] CenterTotal Iron Binding Bpiskoaf9331-09-65 07:12:00* Test Item Value Reference Range Interpretation Comments Total Iron Binding Capacity (test code = 2500-7) 220 261-[address] [facility] CenterPercent Iron Zlqeibwfpx6544-48-43 07:12:00* Test Item Value Reference Range Interpretation Comments Percent Iron Saturation (test code = 2502-3) 8 15-[address] CenterTransferrin2018-02-19 07:12:00* Test Item Value Reference Range Interpretation Comments Transferrin (test code = 3034-6) 157 180-[address] CenterPhosphorus Fqdou5812-39-15 07:12:00* Test Item Value Reference Range Interpretation Comments Phosphorus Level (test code = QJC4431) 5.4 2.3-4.[address] [facility] CenterIron Spobo9448-35-46 07:12:00* Test Item Value Reference Range Interpretation Comments Iron Level (test code = 2498-4) 17 50-[address] [facility] CenterTotal Iron Binding Baiceepa0068-39-54 07:12:00* Test Item Value Reference Range Interpretation Comments Total Iron Binding Capacity (test code = 2500-7) 220 261-[address] [facility] CenterPercent Iron Ccrsrlluxw2193-00-83 07:12:00* Test Item Value Reference Range Interpretation Comments Percent Iron Saturation (test code = 2502-3) 8 15-[address] CenterTransferrin2018-02-19 07:12:00* Test Item Value Reference Range Interpretation Comments Transferrin (test code = 3034-6) 157 180-[address] [facility] CenterPhosphorus Ciihm8149-53-51 07:12:00* Test Item Value Reference Range Interpretation Comments Phosphorus Level (test code = CUK2867) 5.4 2.3-4.[address] [facility] CenterIron Ekvhz9595-43-92 07:12:00* Test Item Value Reference Range Interpretation Comments Iron Level (test code = 2498-4) 17 50-[address] [facility] CenterTotal Iron Binding Jbjdprju3102-85-61 07:12:00* Test Item Value Reference Range Interpretation Comments Total Iron Binding Capacity (test code = 2500-7) 220 261-[address] [facility] CenterPercent Iron Gwlluyrepu5596-49-34 07:12:00* Test Item Value Reference Range Interpretation Comments Percent Iron Saturation (test code = 2502-3) 8 15-[address] [facility] CenterTransferrin2018-02-19 07:12:00* Test Item Value Reference Range Interpretation Comments Transferrin (test code = 3034-6) 157 180-[address] CenterUrine Pfyxrvr3979-88-96 13:16:00* Test Item Value Reference Range Interpretation Comments Urine Clarity (test code = 11949-9) HAZY CLEAR --- 09/02/17 1315 ---CLARITY previously reported as: CLEAR [facility] CenterUrine AYJ8939-71-57 13:16:00* Test Item Value Reference Range Interpretation Comments Urine WBC (test code = 5821-4) 11-20 0-[address] [facility] CenterUrine QOS7269-82-71 13:16:00* Test Item Value Reference Range Interpretation Comments Urine RBC (test code = 17038-2) 6-10 0-[address] [facility] CenterUrine Fnlvlwcm5016-25-34 13:16:00* Test Item Value Reference Range Interpretation Comments Urine Bacteria (test code = 48461-7) FEW NONE [facility] CenterUrine Epithelial Nodny6903-23-09 13:16:00 * Test Item Value Reference Range Interpretation Comments Urine Epithelial Cells (test code = 95805-7) FEW NONE [facility] CenterUrine Amorphous Bnwwrslc4277-66-64 13:16:00* Test Item Value Reference Range Interpretation Comments Urine Amorphous Sediment (test code = 8246-1) FEW FEW [facility] Coarse Granular Xbtro0238-83-89 13:16:00* Test Item Value Reference Range Interpretation Comments Urine Coarse Granular Casts (test code = 66517-7) 1-5 >0 H [facility] Lqwkk2999-79-61 13:16:00* Test Item Value Reference Range Interpretation Comments Urine Mucus (test code = 8247-9) FEW RARE [facility] CenterUrine Hjvtwbq2216-72-73 13:16:00* Test Item Value Reference Range Interpretation Comments Urine Clarity (test code = 25358-2) HAZY CLEAR --- 09/02/17 1315 ---CLARITY previously reported as: CLEAR [facility] GDW7016-19-85 13:16:00* Test Item Value Reference Range Interpretation Comments Urine WBC (test code = 5821-4) 11-20 0-[address] [facility] CenterUrine LRN7285-09-07 13:16:00* Test Item Value Reference Range Interpretation Comments Urine RBC (test code = 90533-8) 6-10 0-5 H [facility] Krjwdyft8366-63-87 13:16:00* Test Item Value Reference Range Interpretation Comments Urine Bacteria (test code = 66706-8) FEW NONE [facility] CenterUrine Epithelial Axiar3582-33-61 13:16:00 * Test Item Value Reference Range Interpretation Comments Urine Epithelial Cells (test code = 56702-2) FEW NONE [facility] Amorphous Jeosymci9775-10-88 13:16:00* Test Item Value Reference Range Interpretation Comments Urine Amorphous Sediment (test code = 8246-1) FEW FE[facility] CenterUrine Coarse Granular Tkahc2684-33-10 13:16:00* Test Item Value Reference Range Interpretation Comments Urine Coarse Granular Casts (test code = 29671-7) 1-[address] [facility] CenterUrine Mwszh7171-21-77 13:16:00* Test Item Value Reference Range Interpretation Comments Urine Mucus (test code = 8247-9) FEW RARE [facility] CenterUrine Lhgrucd9373-74-40 13:16:00* Test Item Value Reference Range Interpretation Comments Urine Clarity (test code = 61082-3) HAZY CLEAR --- 09/02/17 1315 ---CLARITY previously reported as: CLE[facility] CenterUrine AZL9421-65-80 13:16:00* Test Item Value Reference Range Interpretation Comments Urine WBC (test code = 5821-4) 11-20 0-[address] [facility] CenterUrine [id number] 13:16:00* Test Item Value Reference Range Interpretation Comments Urine RBC (test code = 49944-9) 6-10 0-[address] [facility] CenterUrine Gxkcdocd5681-73-60 13:16:00* Test Item Value Reference Range Interpretation Comments Urine Bacteria (test code = 26889-5) FEW NONE [facility] CenterUrine Epithelial Fahhn7247-37-10 13:16:00 * Test Item Value Reference Range Interpretation Comments Urine Epithelial Cells (test code = 11125-8) FEW NONE [facility] CenterUrine Amorphous Bainhkbp9762-88-30 13:16:00* Test Item Value Reference Range Interpretation Comments Urine Amorphous Sediment (test code = 8246-1) FEW FEW [facility] CenterUrine Coarse Granular Yjfvw8257-89-07 13:16:00* Test Item Value Reference Range Interpretation Comments Urine Coarse Granular Casts (test code = 36330-4) 1-5 >0 H [facility] Llcmd1934-52-05 13:16:00* Test Item Value Reference Range Interpretation Comments Urine Mucus (test code = 8247-9) FEW RARE [facility] CenterUrine Hjfniig5277-89-58 13:16:00* Test Item Value Reference Range Interpretation Comments Urine Clarity (test code = 04611-1) HAZY CLEAR --- 09/02/17 1315 ---CLARITY previously reported as: CLEAR [facility] CenterU[facility] [id number] 13:16:00* Test Item Value Reference Range Interpretation Comments Urine WBC (test code = 5821-4) 11-20 0-[address] [facility] CenterU[facility] LXM2864-70-16 13:16:00* Test Item Value Reference Range Interpretation Comments Urine RBC (test code = 52138-8) 6-10 0-[address] [facility] CenterUrine Cggvjrpr0636-77-07 13:16:00* Test Item Value Reference Range Interpretation Comments Urine Bacteria (test code = 91527-6) FEW NONE [facility] CenterUrine Epithelial Kahov3619-63-68 13:16:00 * Test Item Value Reference Range Interpretation Comments Urine Epithelial Cells (test code = 80374-4) FEW NONE [facility] CenterUrine Amorphous Oseateoq6396-50-37 13:16:00* Test Item Value Reference Range Interpretation Comments Urine Amorphous Sediment (test code = 8246-1) FEW FEW [facility] CenterUrine Coarse Granular Pajzw4863-74-91 13:16:00* Test Item Value Reference Range Interpretation Comments Urine Coarse Granular Casts (test code = 43523-3) 1-[address] [facility] CenterU[facility] Lawec6330-07-89 13:16:00* Test Item Value Reference Range Interpretation Comments Urine Mucus (test code = 8247-9) FEW RARE [facility] CenterUrine Safszcy1823-21-43 13:16:00* Test Item Value Reference Range Interpretation Comments Urine Clarity (test code = 66930-8) HAZY CLEAR --- 09/02/17 1315 ---CLARITY previously reported as: CLEAR [facility] CenterU[facility] [id number] 13:16:00* Test Item Value Reference Range Interpretation Comments Urine WBC (test code = 5821-4) 11-20 0-[address] [facility] CenterU[facility] VFW0135-82-74 13:16:00* Test Item Value Reference Range Interpretation Comments Urine RBC (test code = 33987-9) 6-10 0-[address] [facility] CenterU[facility] Vpnuyalj6211-84-97 13:16:00* Test Item Value Reference Range Interpretation Comments Urine Bacteria (test code = 08325-4) FEW NONE [facility] CenterUrine Epithelial Tcumg0610-77-19 13:16:00 * Test Item Value Reference Range Interpretation Comments Urine Epithelial Cells (test code = 80775-3) FEW NONE [facility] Amorphous Hquhdxzt9506-88-72 13:16:00* Test Item Value Reference Range Interpretation Comments Urine Amorphous Sediment (test code = 8246-1) FEW FEW [facility] CenterU[facility] Coarse Granular Pvkqc4003-59-64 13:16:00* Test Item Value Reference Range Interpretation Comments Urine Coarse Granular Casts (test code = 42910-3) 1-[address] [facility] CenterU[facility] Xrags0270-65-89 13:16:00* Test Item Value Reference Range Interpretation Comments Urine Mucus (test code = 8247-9) FEW RARE [facility] CenterU[facility] Apmccvr9214-32-50 13:16:00* Test Item Value Reference Range Interpretation Comments Urine Clarity (test code = 60763-4) HAZY CLEAR --- 09/02/17 1315 ---CLARITY previously reported as: CLEAR [facility] CenterU[facility] [id number] 13:16:00* Test Item Value Reference Range Interpretation Comments Urine WBC (test code = 5821-4) 11-20 0-[address] [facility] CenterU[facility] LPC1468-90-91 13:16:00* Test Item Value Reference Range Interpretation Comments Urine RBC (test code = 28990-9) 6-10 0-[address] [facility] CenterU[facility] Nsjsafjv0966-96-11 13:16:00* Test Item Value Reference Range Interpretation Comments Urine Bacteria (test code = 02764-8) FEW NONE [facility] CenterUrine Epithelial Nczqk2184-41-25 13:16:00 * Test Item Value Reference Range Interpretation Comments Urine Epithelial Cells (test code = 78472-5) FEW NONE [facility] CenterU[facility] Amorphous Ctgskukb1810-35-37 13:16:00* Test Item Value Reference Range Interpretation Comments Urine Amorphous Sediment (test code = 8246-1) FEW FEW [facility] Coarse Granular Giifl6116-38-49 13:16:00* Test Item Value Reference Range Interpretation Comments Urine Coarse Granular Casts (test code = 13189-8) 1-5 >0 H [facility] Bsbvk9685-87-30 13:16:00* Test Item Value Reference Range Interpretation Comments Urine Mucus (test code = 8247-9) FEW RARE [facility] CenterU[facility] Ggsuerq8857-75-40 13:16:00* Test Item Value Reference Range Interpretation Comments Urine Clarity (test code = 11732-4) HAZY CLEAR --- 09/02/17 1315 ---CLARITY previously reported as: CLEAR [facility] [id number] 13:16:00* Test Item Value Reference Range Interpretation Comments Urine WBC (test code = 5821-4) 11-20 0-[address] [facility] CenterU[facility] JGN7195-25-18 13:16:00* Test Item Value Reference Range Interpretation Comments Urine RBC (test code = 94031-3) 6-10 0-5 H [facility] Ibgnehpx2571-34-19 13:16:00* Test Item Value Reference Range Interpretation Comments Urine Bacteria (test code = 90393-1) FEW NONE [facility] CenterU[facility] Epithelial Qyfqa4924-13-84 13:16:00 * Test Item Value Reference Range Interpretation Comments Urine Epithelial Cells (test code = 72465-4) FEW NONE [facility] Amorphous Vddcqflw9535-53-31 13:16:00* Test Item Value Reference Range Interpretation Comments Urine Amorphous Sediment (test code = 8246-1) FEW FEW [facility] Coarse Granular Exduh3364-48-36 13:16:00* Test Item Value Reference Range Interpretation Comments Urine Coarse Granular Casts (test code = 89537-7) 1-[address] [facility] Acwhw5367-59-39 13:16:00* Test Item Value Reference Range Interpretation Comments Urine Mucus (test code = 8247-9) FEW RARE [facility] CenterU[facility] Acxnc0592-51-44 13:13:00* Test Item Value Reference Range Interpretation Comments Urine Color (test code = 5778-6) YELLOW YELLOW [facility] Specific Gdssazv8236-83-28 13:13:00 * Test Item Value Reference Range Interpretation Comments Urine Specific [place] (test code = 5811-5) 1.020 1.010-1.[address] [facility] CenterU[facility] hK7186-12-70 13:13:00* Test Item Value Reference Range Interpretation Comments Urine pH (test code = 83690-3) 5 5-7 [facility] Leukocyte Jzyhwecd9458-01-21 13:13:00* Test Item Value Reference Range Interpretation Comments Urine Leukocyte Esterase (test code = 5799-2) 2+ NEGATIVE H [facility] Jvrvnai6210-81-40 13:13:00* Test Item Value Reference Range Interpretation Comments Urine Nitrite (test code = 38163-8) NEGATIVE NEGATIVE [facility] Sppgmmc0398-13-22 13:13:00* Test Item Value Reference Range Interpretation Comments Urine Protein (test code = 5804-0) 1+ NEGATIVE [facility] CenterU[facility] Glucose (UA)2017-09-02 13:13:00* Test Item Value Reference Range Interpretation Comments Urine Glucose (UA) (test code = 2349-9) NEGATIVE NEGATIVE [facility] Qlpfabe4268-20-60 13:13:00* Test Item Value Reference Range Interpretation Comments Urine Ketones (test code = 44204-3) NEGATIVE NEGATIVE [facility] Gjqmuqhezzfx6004-08-11 13:13:00* Test Item Value Reference Range Interpretation Comments Urine Urobilinogen (test code = 95530-8) 0.2 0.2-1 [facility] Jphbbfjhx8924-07-81 13:13:00* Test Item Value Reference Range Interpretation Comments Urine Bilirubin (test code = 1978-6) NEGATIVE NEGATIVE [facility] Jwtoy0784-78-53 13:13:00* Test Item Value Reference Range Interpretation Comments Urine Blood (test code = 35544-7) TRACE NEGATIVE [facility] Ptmzz5172-06-74 13:13:00* Test Item Value Reference Range Interpretation Comments Urine Color (test code = 5778-6) YELLOW YELLOW [facility] Specific Hmvgtah4411-02-15 13:13:00 * Test Item Value Reference Range Interpretation Comments Urine Specific [place] (test code = 5811-5) 1.020 1.010-1.[address] [facility] CenterU[facility] pM8425-36-72 13:13:00* Test Item Value Reference Range Interpretation Comments Urine pH (test code = 41361-2) 5 5-7 [facility] Leukocyte Ewguiegd4417-64-38 13:13:00* Test Item Value Reference Range Interpretation Comments Urine Leukocyte Esterase (test code = 5799-2) 2+ NEGATIVE H [facility] Eqpohko2585-70-40 13:13:00* Test Item Value Reference Range Interpretation Comments Urine Nitrite (test code = 51387-4) NEGATIVE NEGATIVE [facility] Jghmqek6742-18-99 13:13:00* Test Item Value Reference Range Interpretation Comments Urine Protein (test code = 5804-0) 1+ NEGATIVE H [facility] Glucose (UA)2017-09-02 13:13:00* Test Item Value Reference Range Interpretation Comments Urine Glucose (UA) (test code = 2349-9) NEGATIVE NEGATIVE [facility] Teqzhob5351-54-60 13:13:00* Test Item Value Reference Range Interpretation Comments Urine Ketones (test code = 35909-9) NEGATIVE NEGATIVE [facility] Mtnkntmpkpyb1243-43-31 13:13:00* Test Item Value Reference Range Interpretation Comments Urine Urobilinogen (test code = 75011-5) 0.2 0.2-1 [facility] Qhebkbsma7850-17-47 13:13:00* Test Item Value Reference Range Interpretation Comments Urine Bilirubin (test code = 1978-6) NEGATIVE NEGATIVE [facility] Ptccu2924-57-21 13:13:00* Test Item Value Reference Range Interpretation Comments Urine Blood (test code = 71071-0) TRACE NEGATIVE [facility] Mqtfy9240-63-93 13:13:00* Test Item Value Reference Range Interpretation Comments Urine Color (test code = 5778-6) YELLOW YELLOW [facility] Specific Kbuoguf7551-94-33 13:13:00 * Test Item Value Reference Range Interpretation Comments Urine Specific [place] (test code = 5811-5) 1.020 1.010-1.[address] [facility] zR3357-81-86 13:13:00* Test Item Value Reference Range Interpretation Comments Urine pH (test code = 25495-9) 5 5-7 [facility] Leukocyte Fvyrnita6126-23-13 13:13:00* Test Item Value Reference Range Interpretation Comments Urine Leukocyte Esterase (test code = 5799-2) 2+ NEGATIVE [facility] Dgenqxx9179-19-66 13:13:00* Test Item Value Reference Range Interpretation Comments Urine Nitrite (test code = 69808-6) NEGATIVE NEGATIVE [facility] Dcgaioq0216-12-12 13:13:00* Test Item Value Reference Range Interpretation Comments Urine Protein (test code = 5804-0) 1+ NEGATIVE [facility] Glucose (UA)2017-09-02 13:13:00* Test Item Value Reference Range Interpretation Comments Urine Glucose (UA) (test code = 2349-9) NEGATIVE NEGATIVE [facility] Kbzvztd4632-78-35 13:13:00* Test Item Value Reference Range Interpretation Comments Urine Ketones (test code = 29742-2) NEGATIVE NEGATIVE [facility] [facility] Xgwcesgfohkj6217-05-05 13:13:00* Test Item Value Reference Range Interpretation Comments Urine Urobilinogen (test code = 98033-6) 0.2 0.2-1 [facility] Wwxexzbek1883-57-82 13:13:00* Test Item Value Reference Range Interpretation Comments Urine Bilirubin (test code = 1978-6) NEGATIVE NEGATIVE [facility] Fwvum7555-13-92 13:13:00* Test Item Value Reference Range Interpretation Comments Urine Blood (test code = 99363-0) TRACE NEGATIVE [facility] Jfbxi3997-23-91 13:13:00* Test Item Value Reference Range Interpretation Comments Urine Color (test code = 5778-6) YELLOW YELLOW [facility] Specific Oxlmagg1208-09-34 13:13:00 * Test Item Value Reference Range Interpretation Comments Urine Specific [place] (test code = 5811-5) 1.020 1.010-1.[address] [facility] Center[facility] [id number] 13:13:00* Test Item Value Reference Range Interpretation Comments Urine pH (test code = 98434-7) 5 5-7 [facility] Leukocyte Rzqujuqs2951-31-49 13:13:00* Test Item Value Reference Range Interpretation Comments Urine Leukocyte Esterase (test code = 5799-2) 2+ NEGATIVE [facility] Cjvqdxm9250-62-37 13:13:00* Test Item Value Reference Range Interpretation Comments Urine Nitrite (test code = 47101-9) NEGATIVE NEGATIVE [facility] Yyopwxf9316-43-82 13:13:00* Test Item Value Reference Range Interpretation Comments Urine Protein (test code = 5804-0) 1+ NEGATIVE [facility] CenterU[facility] Glucose (UA)2017-09-02 13:13:00* Test Item Value Reference Range Interpretation Comments Urine Glucose (UA) (test code = 2349-9) NEGATIVE NEGATIVE [facility] Lyyrpgj3715-50-22 13:13:00* Test Item Value Reference Range Interpretation Comments Urine Ketones (test code = 07404-1) NEGATIVE NEGATIVE [facility] Center[facility] Einadmtvrscl4687-20-73 13:13:00* Test Item Value Reference Range Interpretation Comments Urine Urobilinogen (test code = 47890-7) 0.2 0.2-1 [facility] Dkbvkqimc2849-48-19 13:13:00* Test Item Value Reference Range Interpretation Comments Urine Bilirubin (test code = 1978-6) NEGATIVE NEGATIVE [facility] Yxdpn2326-67-36 13:13:00* Test Item Value Reference Range Interpretation Comments Urine Blood (test code = 92530-6) TRACE NEGATIVE [facility] Fgnrq1075-70-21 13:13:00* Test Item Value Reference Range Interpretation Comments Urine Color (test code = 5778-6) YELLOW YELLOW [facility] Specific Hwbayag5402-44-90 13:13:00 * Test Item Value Reference Range Interpretation Comments Urine Specific [place] (test code = 5811-5) 1.020 1.010-1.[address] [facility] CenterU[facility] [id number] 13:13:00* Test Item Value Reference Range Interpretation Comments Urine pH (test code = 30360-6) 5 5-7 [facility] CenterU[facility] Leukocyte Uyrgvdlj5625-74-85 13:13:00* Test Item Value Reference Range Interpretation Comments Urine Leukocyte Esterase (test code = 5799-2) 2+ NEGATIVE [facility] CenterU[facility] Nsyrkho9583-97-31 13:13:00* Test Item Value Reference Range Interpretation Comments Urine Nitrite (test code = 47350-2) NEGATIVE NEGATIVE [facility] Nzvdxxc6745-56-78 13:13:00* Test Item Value Reference Range Interpretation Comments Urine Protein (test code = 5804-0) 1+ NEGATIVE [facility] CenterUrine Glucose (UA)2017-09-02 13:13:00* Test Item Value Reference Range Interpretation Comments Urine Glucose (UA) (test code = 2349-9) NEGATIVE NEGATIVE [facility] CenterU[facility] Afododc3607-83-09 13:13:00* Test Item Value Reference Range Interpretation Comments Urine Ketones (test code = 55482-8) NEGATIVE NEGATIVE [facility] CenterU[facility] Kbcsnxevoitt5728-94-62 13:13:00* Test Item Value Reference Range Interpretation Comments Urine Urobilinogen (test code = 68120-1) 0.2 0.2-1 [facility] Fuaizoldo3458-56-15 13:13:00* Test Item Value Reference Range Interpretation Comments Urine Bilirubin (test code = 1978-6) NEGATIVE NEGATIVE [facility] CenterU[facility] Vaogr9715-03-69 13:13:00* Test Item Value Reference Range Interpretation Comments Urine Blood (test code = 73352-0) TRACE NEGATIVE [facility] Hlplw5276-90-73 13:13:00* Test Item Value Reference Range Interpretation Comments Urine Color (test code = 5778-6) YELLOW YELLOW [facility] Center[facility] Specific Kcfamsp7894-02-05 13:13:00 * Test Item Value Reference Range Interpretation Comments Urine Specific [place] (test code = 5811-5) 1.020 1.010-1.[address] [facility] [id number] 13:13:00* Test Item Value Reference Range Interpretation Comments Urine pH (test code = 91092-3) 5 5-7 [facility] CenterU[facility] Leukocyte Uimqgcvu8933-66-73 13:13:00* Test Item Value Reference Range Interpretation Comments Urine Leukocyte Esterase (test code = 5799-2) 2+ NEGATIVE [facility] Feqsefb6783-87-32 13:13:00* Test Item Value Reference Range Interpretation Comments Urine Nitrite (test code = 21047-4) NEGATIVE NEGATIVE [facility] Prjhudy6324-50-68 13:13:00* Test Item Value Reference Range Interpretation Comments Urine Protein (test code = 5804-0) 1+ NEGATIVE [facility] CenterU[facility] Glucose (UA)2017-09-02 13:13:00* Test Item Value Reference Range Interpretation Comments Urine Glucose (UA) (test code = 2349-9) NEGATIVE NEGATIVE [facility] CenterU[facility] Ztcwqjh6498-37-21 13:13:00* Test Item Value Reference Range Interpretation Comments Urine Ketones (test code = 81526-0) NEGATIVE NEGATIVE [facility] CenterU[facility] Oknekarzpsbo3038-96-65 13:13:00* Test Item Value Reference Range Interpretation Comments Urine Urobilinogen (test code = 29353-3) 0.2 0.2-1 [facility] CenterU[facility] Ltibrusbg3196-69-75 13:13:00* Test Item Value Reference Range Interpretation Comments Urine Bilirubin (test code = 1978-6) NEGATIVE NEGATIVE [facility] Tkcpt8863-44-81 13:13:00* Test Item Value Reference Range Interpretation Comments Urine Blood (test code = 25482-4) TRACE NEGATIVE [facility] CenterU[facility] Kbonm1454-37-35 13:13:00* Test Item Value Reference Range Interpretation Comments Urine Color (test code = 5778-6) YELLOW YELLOW [facility] Specific Gnukhpk5316-39-92 13:13:00 * Test Item Value Reference Range Interpretation Comments Urine Specific [place] (test code = 5811-5) 1.020 1.010-1.[address] [facility] CenterU[facility] [id number] 13:13:00* Test Item Value Reference Range Interpretation Comments Urine pH (test code = 95129-1) 5 5-7 [facility] CenterU[facility] Leukocyte Uuszjjhj0638-01-63 13:13:00* Test Item Value Reference Range Interpretation Comments Urine Leukocyte Esterase (test code = 5799-2) 2+ NEGATIVE H [facility] Lklgxhs3069-09-37 13:13:00* Test Item Value Reference Range Interpretation Comments Urine Nitrite (test code = 64397-0) NEGATIVE NEGATIVE [facility] CenterU[facility] Zlskmew5337-46-88 13:13:00* Test Item Value Reference Range Interpretation Comments Urine Protein (test code = 5804-0) 1+ NEGATIVE [facility] CenterUrine Glucose (UA)2017-09-02 13:13:00* Test Item Value Reference Range Interpretation Comments Urine Glucose (UA) (test code = 2349-9) NEGATIVE NEGATIVE [facility] Gnztitb5151-46-93 13:13:00* Test Item Value Reference Range Interpretation Comments Urine Ketones (test code = 61013-8) NEGATIVE NEGATIVE [facility] CenterU[facility] Phwnwpjhenvj5865-80-01 13:13:00* Test Item Value Reference Range Interpretation Comments Urine Urobilinogen (test code = 24030-4) 0.2 0.2-1 [facility] CenterU[facility] Kxhylrmgh3041-16-14 13:13:00* Test Item Value Reference Range Interpretation Comments Urine Bilirubin (test code = 1978-6) NEGATIVE NEGATIVE [facility] CenterU[facility] Xqxom0013-17-14 13:13:00* Test Item Value Reference Range Interpretation Comments Urine Blood (test code = 62362-5) TRACE NEGATIVE H [facility] CenterTriglycerides Tuxfo3951-48-20 11:39:00* Test Item Value Reference Range Interpretation Comments Triglycerides Level (test code = 2571-8) 79 0-149 [facility] CenterCholesterol Ktsyz9340-16-76 11:39:00* Test Item Value Reference Range Interpretation Comments Cholesterol Level (test code = 2093-3) 119 0-199 Less than 200 mg/dL Low Lspn686 - 239 mg/dL Borderline Pdqu086 m g/dl and greater High [facility] CenterLDL Atyluhfxpma3266-62-58 11:39:00* Test Item Value Reference Range Interpretation Comments LDL Cholesterol (test code = 2089-1) 72 60-130 [facility] CenterHDL Wuoxohqbikt8485-18-29 11:39:00* Test Item Value Reference Range Interpretation Comments HDL Cholesterol (test code = 2085-9) 31 40-[address] [facility] CenterCholesterol/HDL Eguez7505-12-23 11:39:00 * Test Item Value Reference Range Interpretation Comments Cholesterol/HDL Ratio (test code = 9830-1) 3.8 3.0-3.[address] [facility] CenterTriglycerides Vqrgx0836-43-76 11:39:00* Test Item Value Reference Range Interpretation Comments Triglycerides Level (test code = 2571-8) 79 0-149 [facility] CenterCholesterol Owpvg9458-69-86 11:39:00* Test Item Value Reference Range Interpretation Comments Cholesterol Level (test code = 2093-3) 119 0-199 Less than 200 mg/dL Low Qgnm877 - 239 mg/dL Borderline Tbhu866 m g/dl and greater [facility] CenterLDL Xybzbeenqia4190-96-20 11:39:00* Test Item Value Reference Range Interpretation Comments LDL Cholesterol (test code = 2089-1) 72 60-130 [facility] Knqmskwizak0367-67-31 11:39:00* Test Item Value Reference Range Interpretation Comments HDL Cholesterol (test code = 2085-9) 31 40-[address] [facility] CenterCholesterol/HDL Qslqw8388-42-64 11:39:00 * Test Item Value Reference Range Interpretation Comments Cholesterol/HDL Ratio (test code = 9830-1) 3.8 3.0-3.[address] [facility] CenterTriglycerides Zkchc6291-74-20 11:39:00* Test Item Value Reference Range Interpretation Comments Triglycerides Level (test code = 2571-8) 79 0-149 [facility] CenterCholesterol Tllav3693-00-73 11:39:00* Test Item Value Reference Range Interpretation Comments Cholesterol Level (test code = 2093-3) 119 0-199 Less than 200 mg/dL Low Uvsw360 - 239 mg/dL Borderline Otir240 m g/dl and greater [facility] CenterLDL Wrqipoadiqx3476-41-93 11:39:00* Test Item Value Reference Range Interpretation Comments LDL Cholesterol (test code = 2089-1) 72 60-130 [facility] Qkxpgepwzsd3907-95-27 11:39:00* Test Item Value Reference Range Interpretation Comments HDL Cholesterol (test code = 2085-9) 31 40-[address] [facility] CenterCholesterol/HDL Ferpg1545-09-73 11:39:00 * Test Item Value Reference Range Interpretation Comments Cholesterol/HDL Ratio (test code = 9830-1) 3.8 3.0-3.[address] [facility] CenterTriglycerides Mmohc9302-26-59 11:39:00* Test Item Value Reference Range Interpretation Comments Triglycerides Level (test code = 2571-8) 79 0-149 [facility] CenterCholesterol Zeahh7324-14-99 11:39:00* Test Item Value Reference Range Interpretation Comments Cholesterol Level (test code = 2093-3) 119 0-199 Less than 200 mg/dL Low Eajo877 - 239 mg/dL Borderline Ncmh751 m g/dl and greater High [facility] CenterLDL Ztzigixnyvh9785-47-43 11:39:00* Test Item Value Reference Range Interpretation Comments LDL Cholesterol (test code = 2089-1) 72 [facility] Xjeklpaihkb5705-56-21 11:39:00* Test Item Value Reference Range Interpretation Comments HDL Cholesterol (test code = 2085-9) 31 40-[address] [facility] CenterCholesterol/HDL Cppez7076-63-73 11:39:00 * Test Item Value Reference Range Interpretation Comments Cholesterol/HDL Ratio (test code = 9830-1) 3.8 3.0-3.[address] [facility] CenterTriglycerides Onuwq0581-05-69 11:39:00* Test Item Value Reference Range Interpretation Comments Triglycerides Level (test code = 2571-8) 79 0-149 [facility] CenterCholesterol Dvzak5911-53-06 11:39:00* Test Item Value Reference Range Interpretation Comments Cholesterol Level (test code = 2093-3) 119 0-199 Less than 200 mg/dL Low Rgvb136 - 239 mg/dL Borderline Ozmy309 m g/dl and greater [facility] CenterLDL Neookddbemu0751-05-23 11:39:00* Test Item Value Reference Range Interpretation Comments LDL Cholesterol (test code = 2089-1) 72 60-130 [facility] Rowqystlzwj3906-47-55 11:39:00* Test Item Value Reference Range Interpretation Comments HDL Cholesterol (test code = 2085-9) 31 40-[address] [facility] CenterCholesterol/HDL Atqbr8488-10-32 11:39:00 * Test Item Value Reference Range Interpretation Comments Cholesterol/HDL Ratio (test code = 9830-1) 3.8 3.0-3.[address] [facility] CenterTriglycerides Knsbo1962-10-81 11:39:00* Test Item Value Reference Range Interpretation Comments Triglycerides Level (test code = 2571-8) 79 0-149 [facility] CenterCholesterol Wfget8374-45-83 11:39:00* Test Item Value Reference Range Interpretation Comments Cholesterol Level (test code = 2093-3) 119 0-199 Less than 200 mg/dL Low Kfdo144 - 239 mg/dL Borderline Dyuc552 m g/dl and greater [facility] CenterLDL Pczpesjikjw0620-36-16 11:39:00* Test Item Value Reference Range Interpretation Comments LDL Cholesterol (test code = 2089-1) 72 60-130 [facility] Uldemhmkwtb5291-57-66 11:39:00* Test Item Value Reference Range Interpretation Comments HDL Cholesterol (test code = 2085-9) 31 40-[address] CenterCholesterol/HDL Szulw0832-42-02 11:39:00 * Test Item Value Reference Range Interpretation Comments Cholesterol/HDL Ratio (test code = 9830-1) 3.8 3.0-3.[address] [facility] CenterTriglycerides Ikxuz8494-81-87 11:39:00* Test Item Value Reference Range Interpretation Comments Triglycerides Level (test code = 2571-8) 79 0-149 [facility] CenterCholesterol Ahdpn4027-53-93 11:39:00* Test Item Value Reference Range Interpretation Comments Cholesterol Level (test code = 2093-3) 119 0-199 Less than 200 mg/dL Low Lbnt565 - 239 mg/dL Borderline Tnfh301 m g/dl and greater High [facility] CenterLDL Ltcdvmirjtb8606-02-72 11:39:00* Test Item Value Reference Range Interpretation Comments LDL Cholesterol (test code = 2089-1) 72 60-130 [facility] Huixibbkrny7283-39-10 11:39:00* Test Item Value Reference Range Interpretation Comments HDL Cholesterol (test code = 2085-9) 31 40-[address] [facility] CenterCholesterol/HDL Elaot1211-59-38 11:39:00 * Test Item Value Reference Range Interpretation Comments Cholesterol/HDL Ratio (test code = 9830-1) 3.8 3.0-3.[address] [facility] CenterProthrombin Nzru1082-54-69 11:28:00* Test Item Value Reference Range Interpretation Comments Prothrombin Time (test code = 5902-2) 15.1 11.9-14.[address] [facility] CenterProthromb Time International Ratio 2017-09-01 11:28:00* Test Item Value Reference Range Interpretation Comments Prothromb Time International Ratio (test code = 6301-6) 1.29 Oral Anticoagulant Therapy INR Values:1. Low Intensity Therapy 1.5 - 2.02 . Moderate Intensity Therapy 2.0 - 3.03. High Intensity Therapy(1) 2.5 - 3. 54. High Intensity Therapy(2) 3.0 - 4.05. Panic Value INR > 5.0 [facility] CenterActivated Partial Thromboplast Time 2017-09-01 11:28:00* Test Item Value Reference Range Interpretation Comments Activated Partial Thromboplast Time (test code = 51436-3) 35.1 23.8-35.5 [facility] CenterProthrombin Qbiz2976-69-70 11:28:00* Test Item Value Reference Range Interpretation Comments Prothrombin Time (test code = 5902-2) 15.1 11.9-14.[address] CenterProthromb Time International Ratio 2017-09-01 11:28:00* Test Item Value Reference Range Interpretation Comments Prothromb Time International Ratio (test code = 6301-6) 1.29 Oral Anticoagulant Therapy INR Values:1. Low Intensity Therapy 1.5 - 2.02 . Moderate Intensity Therapy 2.0 - 3.03. High Intensity Therapy(1) 2.5 - 3. 54. High Intensity Therapy(2) 3.0 - 4.05. Panic Value INR > 5.0 [facility] CenterActivated Partial Thromboplast Time 2017-09-01 11:28:00* Test Item Value Reference Range Interpretation Comments Activated Partial Thromboplast Time (test code = 00450-8) 35.1 23.8-35.5 [facility] CenterProthrombin Tlgq7315-95-00 11:28:00* Test Item Value Reference Range Interpretation Comments Prothrombin Time (test code = 5902-2) 15.1 11.9-14.[address] [facility] CenterProthromb Time International Ratio 2017-09-01 11:28:00* Test Item Value Reference Range Interpretation Comments Prothromb Time International Ratio (test code = 6301-6) 1.29 Oral Anticoagulant Therapy INR Values:1. Low Intensity Therapy 1.5 - 2.02 . Moderate Intensity Therapy 2.0 - 3.03. High Intensity Therapy(1) 2.5 - 3. 54. High Intensity Therapy(2) 3.0 - 4.05. Panic Value INR > 5.0 [facility] CenterActivated Partial Thromboplast Time 2017-09-01 11:28:00* Test Item Value Reference Range Interpretation Comments Activated Partial Thromboplast Time (test code = 62167-7) 35.1 23.8-35.5 [facility] CenterProthrombin Rxtm3053-30-88 11:28:00* Test Item Value Reference Range Interpretation Comments Prothrombin Time (test code = 5902-2) 15.1 11.9-14.[address] [facility] CenterProthromb Time International Ratio 2017-09-01 11:28:00* Test Item Value Reference Range Interpretation Comments Prothromb Time International Ratio (test code = 6301-6) 1.29 Oral Anticoagulant Therapy INR Values:1. Low Intensity Therapy 1.5 - 2.02 . Moderate Intensity Therapy 2.0 - 3.03. High Intensity Therapy(1) 2.5 - 3. 54. High Intensity Therapy(2) 3.0 - 4.05. Panic Value INR > 5.0 [facility] CenterActivated Partial Thromboplast Time 2017-09-01 11:28:00* Test Item Value Reference Range Interpretation Comments Activated Partial Thromboplast Time (test code = 02261-5) 35.1 23.8-35.5 [facility] CenterProthrombin Zncu4383-65-70 11:28:00* Test Item Value Reference Range Interpretation Comments Prothrombin Time (test code = 5902-2) 15.1 11.9-14.[address] [facility] CenterProthromb Time International Ratio 2017-09-01 11:28:00* Test Item Value Reference Range Interpretation Comments Prothromb Time International Ratio (test code = 6301-6) 1.29 Oral Anticoagulant Therapy INR Values:1. Low Intensity Therapy 1.5 - 2.02 . Moderate Intensity Therapy 2.0 - 3.03. High Intensity Therapy(1) 2.5 - 3. 54. High Intensity Therapy(2) 3.0 - 4.05. Panic Value INR > 5.0 [facility] CenterActivated Partial Thromboplast Time 2017-09-01 11:28:00* Test Item Value Reference Range Interpretation Comments Activated Partial Thromboplast Time (test code = 66014-7) 35.1 23.8-35.5 [facility] CenterProthrombin Scqm9164-75-01 11:28:00* Test Item Value Reference Range Interpretation Comments Prothrombin Time (test code = 5902-2) 15.1 11.9-14.[address] [facility] CenterProthromb Time International Ratio 2017-09-01 11:28:00* Test Item Value Reference Range Interpretation Comments Prothromb Time International Ratio (test code = 6301-6) 1.29 Oral Anticoagulant Therapy INR Values:1. Low Intensity Therapy 1.5 - 2.02 . Moderate Intensity Therapy 2.0 - 3.03. High Intensity Therapy(1) 2.5 - 3. 54. High Intensity Therapy(2) 3.0 - 4.05. Panic Value INR > 5.0 [facility] CenterActivated Partial Thromboplast Time 2017-09-01 11:28:00* Test Item Value Reference Range Interpretation Comments Activated Partial Thromboplast Time (test code = 20267-5) 35.1 23.8-35.5 [facility] CenterProthrombin Dtms5621-34-81 11:28:00* Test Item Value Reference Range Interpretation Comments Prothrombin Time (test code = 5902-2) 15.1 11.9-14.[address] [facility] CenterProthromb Time International Ratio 2017-09-01 11:28:00* Test Item Value Reference Range Interpretation Comments Prothromb Time International Ratio (test code = 6301-6) 1.29 Oral Anticoagulant Therapy INR Values:1. Low Intensity Therapy 1.5 - 2.02 . Moderate Intensity Therapy 2.0 - 3.03. High Intensity Therapy(1) 2.5 - 3. 54. High Intensity Therapy(2) 3.0 - 4.05. Panic Value INR > 5.0 [facility] CenterActivated Partial Thromboplast Time 2017-09-01 11:28:00* Test Item Value Reference Range Interpretation Comments Activated Partial Thromboplast Time (test code = 02150-4) 35.1 23.8-35.5 [facility] CenterArterial Blood [id number] 13:15:00* Test Item Value Reference Range Interpretation Comments Arterial Blood pH (test code = 2744-1) 7.42 7.31-7.[address] [facility] CenterArterial Blood Partial Pressure CO2 2017-08-15 13:15:00* Test Item Value Reference Range Interpretation Comments Arterial Blood Partial Pressure CO2 (test code = 2018-8) 38 41-[address] [facility] CenterArterial Blood Partial Pressure O2 2017-08-15 13:15:00* Test Item Value Reference Range Interpretation Comments Arterial Blood Partial Pressure O2 (test code = 2018-8) 87 80-105 [facility] CenterArterial Blood [id number] 13:15:00* Test Item Value Reference Range Interpretation Comments Arterial Blood HCO3 (test code = 1960-4) 25 23-28 [facility] CenterArterial Blood Base Flhnrx3714-81-26 13:15:00* Test Item Value Reference Range Interpretation Comments Arterial Blood Base Excess (test code = 1925-7) 0.0 -2-3 [facility] CenterArterial Blood Oxygen Saturation 2017-08-15 13:15:00* Test Item Value Reference Range Interpretation Comments Arterial Blood Oxygen Saturation (test code = 2708-6) 97.0 95-98 [facility] Blood [id number] 13:15:00* Test Item Value Reference Range Interpretation Comments Arterial Blood pH (test code = 2744-1) 7.42 7.31-7.[address] [facility] Partial Pressure CO2 2017-08-15 13:15:00* Test Item Value Reference Range Interpretation Comments Arterial Blood Partial Pressure CO2 (test code = 2019-8) 38 41-[address] [facility] [address] Partial Pressure O2 2017-08-15 13:15:00* Test Item Value Reference Range Interpretation Comments Arterial Blood Partial Pressure O2 (test code = 2018-8) 87 80-105 [facility] [id number] 13:15:00* Test Item Value Reference Range Interpretation Comments Arterial Blood HCO3 (test code = 1960-4) [facility] Base [id number] 13:15:00* Test Item Value Reference Range Interpretation Comments Arterial Blood Base Excess (test code = 1925-7) 0.0 -2-3 [facility] Oxygen Saturation 2017-08-15 13:15:00* Test Item Value Reference Range Interpretation Comments Arterial Blood Oxygen Saturation (test code = 2708-6) 97.0 95-98 [facility] [id number] 13:15:00* Test Item Value Reference Range Interpretation Comments Arterial Blood pH (test code = 2744-1) 7.42 7.31-7.[address] [facility] Partial Pressure CO2 2017-08-15 13:15:00* Test Item Value Reference Range Interpretation Comments Arterial Blood Partial Pressure CO2 (test code = 2018-8) 38 41-[address] [facility] Partial Pressure O2 2017-08-15 13:15:00* Test Item Value Reference Range Interpretation Comments Arterial Blood Partial Pressure O2 (test code = 2018-8) 87 80-105 [facility] [id number] 13:15:00* Test Item Value Reference Range Interpretation Comments Arterial Blood HCO3 (test code = 1960-4) [facility] Base [id number] 13:15:00* Test Item Value Reference Range Interpretation Comments Arterial Blood Base Excess (test code = 1925-7) 0.0 -2-3 [facility] Oxygen Saturation 2017-08-15 13:15:00* Test Item Value Reference Range Interpretation Comments Arterial Blood Oxygen Saturation (test code = 2708-6) 97.0 95-98 [facility] [id number] 13:15:00* Test Item Value Reference Range Interpretation Comments Arterial Blood pH (test code = 2744-1) 7.42 7.31-7.[address] [facility] Partial Pressure CO2 2017-08-15 13:15:00* Test Item Value Reference Range Interpretation Comments Arterial Blood Partial Pressure CO2 (test code = 2018-) 38 41-[address] [facility] Partial Pressure O2 2017-08-15 13:15:00* Test Item Value Reference Range Interpretation Comments Arterial Blood Partial Pressure O2 (test code = 2019-02) 87 80-105 [facility] [id number] 13:15:00* Test Item Value Reference Range Interpretation Comments Arterial Blood HCO3 (test code = 1960-4) 25 23-28 [facility] Base [id number] 13:15:00* Test Item Value Reference Range Interpretation Comments Arterial Blood Base Excess (test code = 1925-7) 0.0 -2-3 [facility] Oxygen Saturation 2017-08-15 13:15:00* Test Item Value Reference Range Interpretation Comments Arterial Blood Oxygen Saturation (test code = 2708-6) 97.0 95-98 [facility] [id number] 13:15:00* Test Item Value Reference Range Interpretation Comments Arterial Blood pH (test code = 2744-1) 7.42 7.31-7.[address] [facility] Partial Pressure CO2 2017-08-15 13:15:00* Test Item Value Reference Range Interpretation Comments Arterial Blood Partial Pressure CO2 (test code = 2019-8) 38 41-[address] [facility] Partial Pressure O2 2017-08-15 13:15:00* Test Item Value Reference Range Interpretation Comments Arterial Blood Partial Pressure O2 (test code = 2019-8) 87 80-105 [facility] [id number] 13:15:00* Test Item Value Reference Range Interpretation Comments Arterial Blood HCO3 (test code = 1960-4) [facility] Base [id number] 13:15:00* Test Item Value Reference Range Interpretation Comments Arterial Blood Base Excess (test code = 1925-7) 0.0 -2-3 [facility] Oxygen Saturation 2017-08-15 13:15:00* Test Item Value Reference Range Interpretation Comments Arterial Blood Oxygen Saturation (test code = 2708-6) 97.0 95-98 [facility]Ar[facility] [id number] 13:15:00* Test Item Value Reference Range Interpretation Comments Arterial Blood pH (test code = 2744-1) 7.42 7.31-7.[address] [facility] Partial Pressure CO2 2017-08-15 13:15:00* Test Item Value Reference Range Interpretation Comments Arterial Blood Partial Pressure CO2 (test code = 2019-8) 38 41-[address] [facility] Partial Pressure O2 2017-08-15 13:15:00* Test Item Value Reference Range Interpretation Comments Arterial Blood Partial Pressure O2 (test code = 2019-8) 87 80-105 [facility] [id number] 13:15:00* Test Item Value Reference Range Interpretation Comments Arterial Blood HCO3 (test code = 1960-4) [facility] Base [id number] 13:15:00* Test Item Value Reference Range Interpretation Comments Arterial Blood Base Excess (test code = 1925-7) 0.0 -2-3 [facility] Oxygen Saturation 2017-08-15 13:15:00* Test Item Value Reference Range Interpretation Comments Arterial Blood Oxygen Saturation (test code = 2708-6) 97.0 95-98 [facility] CenterBLOOD [id number] 10:00:00* Test Item Value Reference Range Interpretation Comments CULTURE (BEAKER) (test code = 1095) No growth in 5 days BLOOD [id number] 10:00:00* Test Item Value Reference Range Interpretation Comments CULTURE (BEAKER) (test code = 1095) No growth in 5 days URINE [id number] 16:46:00* Test Item Value Reference Range Interpretation Comments CULTURE (BEAKER) (test code = 1095) A 10-19,000 col/mL Luz Maria glabrata 30-39,000 col/mL skin floraSPUTUM CULTURE + GRAM [id number] 12:10:00* Test Item Value Reference Range Interpretation Comments CULTURE (BEAKER) (test code = 1095) 1+ Normal respiratory jennifer pre sent GRAM STAIN RESULT (BEAKER) (test code = 1123) 3+ WBCs GRAM STAIN RESULT (BEAKER) (test code = 47064) 0-5 epithelial cells GRAM STAIN RESULT (BEAKER) (test code = 50694) <1+ gram positive ro ds GRAM STAIN RESULT (BEAKER) (test code = 704675) <1+ gr am positive cocci in pairs POCT-GLUCOSE [id number] 11:52:00* Test Item Value Reference Range Interpretation Comments POC-GLUCOSE METER (BEAKER) (test code = 1538) 169 mg/dL 70-110 H TESTED AT [address] [address] POCT-GLUCOSE [id number] 11:14:00* Test Item Value Reference Range Interpretation Comments POC-GLUCOSE METER (BEAKER) (test code = 1538) 164 mg/dL 70-110 H TESTED AT [address] [address] POCT-GLUCOSE [id number] 08:07:00* Test Item Value Reference Range Interpretation Comments POC-GLUCOSE METER (BEAKER) (test code = 1538) 148 mg/dL 70-110 H TESTED AT [address] [address] BASIC METABOLIC [id number] 07:22:00* Test Item Value Reference Range Interpretation Comments SODIUM (BEAKER) (test code = 381) 137 meq/L 136-145 POTASSIUM (BEAKER) (test code = 379) 4.1 meq/L 3.5-5.1 CHLORIDE (BEAKER) (test code = 382) 100 meq/L 98-107 CO2 (BEAKER) (test code = 355) 28 meq/L 22-29 BLOOD UREA NITROGEN (BEAKER) (test code = 354) 27 mg/dL 7-21 H CREATININE (BEAKER) (test code = 358) 2.27 mg/dL 0.57-1.25 H GLUCOSE RANDOM (BEAKER) (test code = 652) 97 mg/dL 70-105 CALCIUM (BEAKER) (test code = 697) 8.2 mg/dL 8.4-10.2 L EGFR (BEAKER) (test code = 1092) 22 mL/min/1.73 sq m ESTIMATED GFR IS NOT ACCURATE CREATININE CLEARANCE IN PREDICTING GLOMERULAR FILTRATION RATE. ESTIMATED GFR IS NOT APPLICABLE FOR DIALYSIS PATIENTS. CALCIUM, [id number] 07:18:00* Test Item Value Reference Range Interpretation Comments CALCIUM IONIZED (BEAKER) (test code = 698) 1.05 mmol/L 1.12-1.27 L PH, BLOOD (BEAKER) (test code = 1810) 7.39 [id number] 07:17:00* Test Item Value Reference Range Interpretation Comments PHOSPHORUS (BEAKER) (test code = 604) 3.1 mg/dL 2.3-4.7 [id number] 07:17:00* Test Item Value Reference Range Interpretation Comments MAGNESIUM (BEAKER) (test code = 627) 1.7 mg/dL 1.6-2.6 CBC W/PLT COUNT & AUTO [id number] 06:49:00* Test Item Value Reference Range Interpretation Comments WHITE BLOOD CELL COUNT (BEAKER) (test code = 775) 6.5 K/ L 3.5- 10.5 RED BLOOD CELL COUNT (BEAKER) (test code = 761) 2.88 M/ L 3.93-5 .22 L HEMOGLOBIN (BEAKER) (test code = 410) 8.0 GM/DL 11.2-15.7 L HEMATOCRIT (BEAKER) (test code = 411) 26.1 % 34.1-44.9 L MEAN CORPUSCULAR VOLUME (BEAKER) (test code = 753) 90.6 fL 79. 4-94.8 MEAN CORPUSCULAR HEMOGLOBIN (BEAKER) (test code = 751) 27.8 pg 25.6-32.2 MEAN CORPUSCULAR HEMOGLOBIN CONC (BEAKER) (test code = 752) 30.7 GM/DL 32.2-35.5 L RED CELL DISTRIBUTION WIDTH (BEAKER) (test code = 412) 15.4 % 11.7-14.4 H PLATELET COUNT (BEAKER) (test code = 756) 294 K/CU MM 150-450 MEAN PLATELET VOLUME (BEAKER) (test code = 754) 10.2 fL 9.4-12 .3 NUCLEATED RED BLOOD CELLS (BEAKER) (test code = 413) 0 /100 WBC 0 -0 NEUTROPHILS RELATIVE PERCENT (BEAKER) (test code = 429) 71 % LYMPHOCYTES RELATIVE PERCENT (BEAKER) (test code = 430) 17 % MONOCYTES RELATIVE PERCENT (BEAKER) (test code = 431) 9 % EOSINOPHILS RELATIVE PERCENT (BEAKER) (test code = 432) 2 % BASOPHILS RELATIVE PERCENT (BEAKER) (test code = 437) 1 % NEUTROPHILS ABSOLUTE COUNT (BEAKER) (test code = 670) 4.63 K/ L 1.56-6.13 LYMPHOCYTES ABSOLUTE COUNT (BEAKER) (test code = 414) 1.12 K/ L 1.18-3.74 L MONOCYTES ABSOLUTE COUNT (BEAKER) (test code = 415) 0.57 K/ L 0. 24-0.36 H EOSINOPHILS ABSOLUTE COUNT (BEAKER) (test code = 416) 0.15 K/ L 0.04-0.36 BASOPHILS ABSOLUTE COUNT (BEAKER) (test code = 417) 0.04 K/ L 0. 01-0.08 IMMATURE GRANULOCYTES-RELATIVE PERCENT (BEAKER) (test code = 2801) 1 % 0-1 POCT-GLUCOSE [id number] 06:27:00* Test Item Value Reference Range Interpretation Comments POC-GLUCOSE METER (BEAKER) (test code = 1538) 120 mg/dL 70-110 H TESTED AT [address] [address] POCT-GLUCOSE [id number] 22:26:00* Test Item Value Reference Range Interpretation Comments POC-GLUCOSE METER (BEAKER) (test code = 1538) 92 mg/dL 70-110 TESTED AT [place] [address] [facility] [address] POCT-GLUCOSE [id number] 18:13:00* Test Item Value Reference Range Interpretation Comments POC-GLUCOSE METER (BEAKER) (test code = 1538) 145 mg/dL 70-110 H TESTED AT [address] [address] POCT-GLUCOSE [id number] 18:00:00* Test Item Value Reference Range Interpretation Comments POC-GLUCOSE METER (BEAKER) (test code = 1538) 106 mg/dL 70-110 TESTED AT [address] [address] POCT-GLUCOSE [id number] 13:16:00* Test Item Value Reference Range Interpretation Comments POC-GLUCOSE METER (BEAKER) (test code = 1538) 50 mg/dL 70-110 L TESTED AT [address] [address] POCT-GLUCOSE [id number] 12:43:00* Test Item Value Reference Range Interpretation Comments POC-GLUCOSE METER (BEAKER) (test code = 1538) 34 mg/dL 70-110 LL TESTED AT [address] [address] POCT-GLUCOSE [id number] 09:45:00* Test Item Value Reference Range Interpretation Comments POC-GLUCOSE METER (BEAKER) (test code = 1538) 56 mg/dL 70-110 L Notified LUIS PÉREZ/TESTED AT [address] [address] POCT-GLUCOSE [id number] 09:45:00* Test Item Value Reference Range Interpretation Comments POC-GLUCOSE METER (BEAKER) (test code = 1538) 49 mg/dL 70-110 L Notified LUIS PÉREZ/TESTED AT [address] [address] POCT-GLUCOSE [id number] 06:06:00* Test Item Value Reference Range Interpretation Comments POC-GLUCOSE METER (BEAKER) (test code = 1538) 35 mg/dL 70-110 LL TESTED AT [address] [address] [id number] 03:30:00* Test Item Value Reference Range Interpretation Comments FERRITIN (BEAKER) (test code = 361) 540 ng/mL 5-275 H IRON, TIBC, % SAT. (WITHOUT FERRITIN)2017-06-29 03:08:00* Test Item Value Reference Range Interpretation Comments IRON (BEAKER) (test code = 547) 16 ug/dL 40-160 L TOTAL IRON BINDING CAPACITY (BEAKER) (test code = 769) 248 ug/dL 250-450 L IRON % SATURATION (2) (BEAKER) (test code = 2590) 6 % 20-5 5 L BASIC METABOLIC [id number] 02:54:00* Test Item Value Reference Range Interpretation Comments SODIUM (BEAKER) (test code = 381) 133 meq/L 136-145 L POTASSIUM (BEAKER) (test code = 379) 3.4 meq/L 3.5-5.1 L CHLORIDE (BEAKER) (test code = 382) 98 meq/L 98-107 CO2 (BEAKER) (test code = 355) 24 meq/L 22-29 BLOOD UREA NITROGEN (BEAKER) (test code = 354) 32 mg/dL 7-21 H CREATININE (BEAKER) (test code = 358) 2.26 mg/dL 0.57-1.25 H GLUCOSE RANDOM (BEAKER) (test code = 652) 29 mg/dL 70-105 LL CALCIUM (BEAKER) (test code = 697) 8.4 mg/dL 8.4-10.2 EGFR (BEAKER) (test code = 1092) 22 mL/min/1.73 sq m ESTIMATED GFR IS NOT ACCURATE CREATININE CLEARANCE IN PREDICTING GLOMERULAR FILTRATION RATE. ESTIMATED GFR IS NOT APPLICABLE FOR DIALYSIS PATIENTS. TROPONIN [id number] 02:28:00* Test Item Value Reference Range Interpretation Comments TROPONIN I (BEAKER) (test code = 397) 0.08 ng/mL 0.00-0.03 H Troponin I (TnI) levels must be interpreted in the context of the presenting sym ptoms and the clinical findings. Elevated TnI levels indicate myocardial damage, but are not specific for ischemic heart disease. Elevated TnI levels are seen in patients with other cardiac conditions (including myocarditis and congestive h eart failure), and slight TnI elevations occur in patients with other conditions , including sepsis, renal failure, acidosis, acute neurological disease, and per sistent tachyarrhythmia.B-TYPE NATRIURETIC FACTOR (BNP)2017-06-29 02:27:00* Test Item Value Reference Range Interpretation Comments B-TYPE NATRIURETIC PEPTIDE (BEAKER) (test code = 700) 1230 pg/mL 0-100 H [id number] 02:25:00* Test Item Value Reference Range Interpretation Comments PHOSPHORUS (BEAKER) (test code = 604) 3.3 mg/dL 2.3-4.7 [id number] 02:25:00* Test Item Value Reference Range Interpretation Comments MAGNESIUM (BEAKER) (test code = 627) 1.5 mg/dL 1.6-2.6 L POCT-GLUCOSE [id number] 02:02:00* Test Item Value Reference Range Interpretation Comments POC-GLUCOSE METER (BEAKER) (test code = 1538) 80 mg/dL 70-110 TESTED AT [facility] [address] [facility] [address] CALCIUM, [id number] 02:02:00* Test Item Value Reference Range Interpretation Comments CALCIUM IONIZED (BEAKER) (test code = 698) 1.03 mmol/L 1.12-1.27 L PH, BLOOD (BEAKER) (test code = 1810) 7.45 RETICULOCYTE [id number] 01:57:00* Test Item Value Reference Range Interpretation Comments RETICULOCYTE COUNT PCT (BEAKER) (test code = 575) 3.5 % 0.5- 1.7 H CBC W/PLT COUNT & AUTO [id number] 01:57:00* Test Item Value Reference Range Interpretation Comments WHITE BLOOD CELL COUNT (BEAKER) (test code = 775) 9.3 K/ L 3.5- 10.5 RED BLOOD CELL COUNT (BEAKER) (test code = 761) 2.85 M/ L 3.93-5 .22 L HEMOGLOBIN (BEAKER) (test code = 410) 7.9 GM/DL 11.2-15.7 L HEMATOCRIT (BEAKER) (test code = 411) 25.6 % 34.1-44.9 L MEAN CORPUSCULAR VOLUME (BEAKER) (test code = 753) 89.8 fL 79. 4-94.8 MEAN CORPUSCULAR HEMOGLOBIN (BEAKER) (test code = 751) 27.7 pg 25.6-32.2 MEAN CORPUSCULAR HEMOGLOBIN CONC (BEAKER) (test code = 752) 30.9 GM/DL 32.2-35.5 L RED CELL DISTRIBUTION WIDTH (BEAKER) (test code = 412) 15.2 % 11.7-14.4 H PLATELET COUNT (BEAKER) (test code = 756) 341 K/CU MM 150-450 MEAN PLATELET VOLUME (BEAKER) (test code = 754) 10.0 fL 9.4-12 .3 NUCLEATED RED BLOOD CELLS (BEAKER) (test code = 413) 0 /100 WBC 0 -0 NEUTROPHILS RELATIVE PERCENT (BEAKER) (test code = 429) 84 % LYMPHOCYTES RELATIVE PERCENT (BEAKER) (test code = 430) 6 % MONOCYTES RELATIVE PERCENT (BEAKER) (test code = 431) 8 % EOSINOPHILS RELATIVE PERCENT (BEAKER) (test code = 432) 0 % BASOPHILS RELATIVE PERCENT (BEAKER) (test code = 437) 1 % NEUTROPHILS ABSOLUTE COUNT (BEAKER) (test code = 670) 7.83 K/ L 1.56-6.13 H LYMPHOCYTES ABSOLUTE COUNT (BEAKER) (test code = 414) 0.57 K/ L 1.18-3.74 L MONOCYTES ABSOLUTE COUNT (BEAKER) (test code = 415) 0.76 K/ L 0. 24-0.36 H EOSINOPHILS ABSOLUTE COUNT (BEAKER) (test code = 416) 0.03 K/ L 0.04-0.36 L BASOPHILS ABSOLUTE COUNT (BEAKER) (test code = 417) 0.06 K/ L 0. 01-0.08 IMMATURE GRANULOCYTES-RELATIVE PERCENT (BEAKER) (test code = 2801) 1 % 0-1 POCT-GLUCOSE [id number] 01:49:00* Test Item Value Reference Range Interpretation Comments POC-GLUCOSE METER (BEAKER) (test code = 1538) 31 mg/dL 70-110 LL TESTED AT [address] [address] POCT-GLUCOSE [id number] 20:43:00* Test Item Value Reference Range Interpretation Comments POC-GLUCOSE METER (BEAKER) (test code = 1538) 109 mg/dL 70-110 TESTED AT [address] [address] POCT-GLUCOSE [id number] 19:11:00* Test Item Value Reference Range Interpretation Comments POC-GLUCOSE METER (BEAKER) (test code = 1538) 55 mg/dL 70-110 L Notified LUIS PÉREZ/TESTED AT [address] [address] POCT-GLUCOSE [id number] 18:38:00* Test Item Value Reference Range Interpretation Comments POC-GLUCOSE METER (BEAKER) (test code = 1538) 51 mg/dL 70-110 L Notified LUIS PÉREZ/TESTED AT [facility] [address] [facility] [address] PUL PERF IMAGING, PARTIC, [id number] 17:18:00FINAL REPORT PROCEDURE: V/Q LUNG SCAN CPT CODE: 17415 INDICATION: Dyspnea PROTOCOL: 10.8 mCi of Xe-133 gas was administered by inhalation. Single breath and rebreathing/washout images were obtained in the anterior and the posterior projections. 4.3 mCi of Tc-99m MAA was then injected intravenously, and static perfusion images were obtained in multiple projections. FINDINGS: Ventilation: Initial tracer distribution is irregularly decreased in the left mid lung field anteriorly and the right mid an d lower lung chaudhari posteriorly. Washout proceeds normally. Perfusion: Tracer distribution is nonsegmentally decreased in the mid and lower lung chaudhari bilaterally. IMPRESSION: 1. Very low probability of acute pulmonary embol ization.2. Bilateral parenchymal abnormality. Signed: Jorge Dye MDReport Bianca ified Date/Time: 06/28/2017 17:18:07 Reading Location: [address] ed Reading Room Electronically signed by: JORGE DYE MD on 017 05:18 PM RESPIRATORY PANEL [id number] 15:22:00* Test Item Value Reference Range Interpretation Comments HUMAN METAPNEUMOVIRUS (BEAKER) (test code = 2683) Not detect ed Not detected, Inconclusive RHINOVIRUS (BEAKER) (test code = 2684) Not detected Not detec joy, Inconclusive INFLUENZA A (BEAKER) (test code = 2685) Not detected Not dete cted, Inconclusive INFLUENZA A SUBTYPE H1 (BEAKER) (test code = 2686) Not detec joy Not detected, Inconclusive INFLUENZA A SUBTYPE H3 (BEAKER) (test code = 2687) Not detec joy Not detected, Inconclusive INFLUENZA A SUBTYPE H1-2009 (BEAKER) (test code = 3198) Not detected Not detected, Inconclusive INFLUENZA B (BEAKER) (test code = 2688) Detected Not detected, Inconclusive A RESPIRATORY SYNCYTIAL VIRUS (BEAKER) (test code = 3199) Not detected Not detected, Inconclusive PARAINFLUENZA VIRUS 1 (BEAKER) (test code = 2691) Not detect ed Not detected, Inconclusive PARAINFLUENZA VIRUS 2 (BEAKER) (test code = 2692) Not detect ed Not detected, Inconclusive PARAINFLUENZA VIRUS 3 (BEAKER) (test code = 2693) Not detect ed Not detected, Inconclusive PARAINFLUENZA VIRUS 4 (BEAKER) (test code = 3200) Not detect ed Not detected, Inconclusive ADENOVIRUS (BEAKER) (test code = 2694) Not detected Not detec joy, Inconclusive CORONAVIRUS 229E (BEAKER) (test code = 3201) Not detected Not detected, Inconclusive CORONAVIRUS HKU1 (BEAKER) (test code = 3202) Not detected Not detected, Inconclusive CORONAVIRUS NL63 (BEAKER) (test code = 3203) Not detected Not detected, Inconclusive CORONAVIRUS OC43 (BEAKER) (test code = 3204) Not detected Not detected, Inconclusive BORDETELLA PERTUSSIS (BEAKER) (test code = 3205) Not detecte d Not detected, Inconclusive CHLAMYDOPHILA PNEUMONIAE (BEAKER) (test code = 3206) Not det ected Not detected, Inconclusive MYCOPLASMA PNEUMONIAE (BEAKER) (test code = 3207) Not detect ed Not detected, Inconclusive INFLUENZA A H1N1 [id number] 15:02:00* Test Item Value Reference Range Interpretation Comments INFLUENZA A RNA (BEAKER) (test code = 1545) Not Detected Not Detected, Inconclusive NOVEL H1N1 RNA (BEAKER) (test code = 1546) Not Detected Not Detected, Inconclusive These assays were performed by real-time RT-PCR (optical dispenser-PCR) utilizing fluorogenic hydrolysis probe technology for the detection of human Influenza A viruses and t he differential detection of novel H1N1 Influenza virus in respiratory specimens . The test is composed of (1) an RNA extraction from patient specimen, and (2) r RT-PCR amplification and detection with human Influenza A and novel [id number]-[id number] c primers and probes. A well-conserved region of the Influenza A matrix gene is targeted in one set of reactions to identify both seasonal Influenza A and novel H1N1 Influenza virus in the specimen. In addition, a specific region of the he magglutinin gene is targeted to differentiate the novel H1N1 virus from the seas onal human influenza. An internal control is used to confirm PCR amplification. Genetic variation and other factors can affect the accuracy of nucleic acid vale ting; therefore, the results should be interpreted in light of clinical data. Th is test was developed and its performance characteristics determined by the [facility] Pathology Department, Section of Molecular Pathology. It has not been cleared or approved by the U.S. Food and Drug Administration (F DA). Since FDA approval is not required for clinical use of the test, validatio n was done as required by The Clinical Laboratory Amendments of 1987.These assay s were performed by real-time RT-PCR (optical dispenser-PCR) utilizing fluorogenic hydrolysis probe technology for the detection of human Influenza A viruses and the differ tial detection of novel H1N1 Influenza virus in respiratory specimens. The test is composed of (1) an RNA extraction from patient specimen, and (2) optical dispenser-PCR ampl ification and detection with human Influenza A and novel [id number] primers a nd probes. A well-conserved region of the Influenza A matrix gene is targeted in one set of reactions to identify both seasonal Influenza A and novel H1N1 Influ odalys virus in the specimen. In addition, a specific region of the hemagglutinin gene is targeted to differentiate the novel H1N1 virus from the seasonal human influenza. An internal control is used to confirm PCR amplification. Genetic va riation and other factors can affect the accuracy of nucleic acid testing; there fore, the results should be interpreted in light of clinical data. This test was developed and its performance characteristics determined by the [facility] Pathology Department, Section of Molecular Pathology. It has not been cleared or approved by the U.S. Food and Drug Administration (FDA). Since FDA approval is not required for clinical use of the test, validation was done as required by The Clinical Laboratory Amendments of 1987.TROPONIN [id number] 14:23:00* Test Item Value Reference Range Interpretation Comments TROPONIN I (BEAKER) (test code = 397) 0.11 ng/mL 0.00-0.03 H Troponin I (TnI) levels must be interpreted in the context of the presenting sym ptoms and the clinical findings. Elevated TnI levels indicate myocardial damage, but are not specific for ischemic heart disease. Elevated TnI levels are seen in patients with other cardiac conditions (including myocarditis and congestive h eart failure), and slight TnI elevations occur in patients with other conditions , including sepsis, renal failure, acidosis, acute neurological disease, and per sistent tachyarrhythmia.POCT-GLUCOSE [id number] 12:25:00* Test Item Value Reference Range Interpretation Comments POC-GLUCOSE METER (BEAKER) (test code = 1538) 74 mg/dL 70-110 TESTED AT [facility] [address] [facility] [address] CBC W/PLT COUNT & AUTO [id number] 11:20:00* Test Item Value Reference Range Interpretation Comments WHITE BLOOD CELL COUNT (BEAKER) (test code = 775) 8.9 K/ L 3.5- 10.5 RED BLOOD CELL COUNT (BEAKER) (test code = 761) 2.65 M/ L 3.93-5 .22 L HEMOGLOBIN (BEAKER) (test code = 410) 7.5 GM/DL 11.2-15.7 L HEMATOCRIT (BEAKER) (test code = 411) 24.8 % 34.1-44.9 L MEAN CORPUSCULAR VOLUME (BEAKER) (test code = 753) 93.6 fL 79. 4-94.8 MEAN CORPUSCULAR HEMOGLOBIN (BEAKER) (test code = 751) 28.3 pg 25.6-32.2 MEAN CORPUSCULAR HEMOGLOBIN CONC (BEAKER) (test code = 752) 30.2 GM/DL 32.2-35.5 L RED CELL DISTRIBUTION WIDTH (BEAKER) (test code = 412) 15.5 % 11.7-14.4 H PLATELET COUNT (BEAKER) (test code = 756) 310 K/CU MM 150-450 MEAN PLATELET VOLUME (BEAKER) (test code = 754) 10.3 fL 9.4-12 .3 NUCLEATED RED BLOOD CELLS (BEAKER) (test code = 413) 0 /100 WBC 0 -0 NEUTROPHILS RELATIVE PERCENT (BEAKER) (test code = 429) 84 % LYMPHOCYTES RELATIVE PERCENT (BEAKER) (test code = 430) 6 % MONOCYTES RELATIVE PERCENT (BEAKER) (test code = 431) 8 % EOSINOPHILS RELATIVE PERCENT (BEAKER) (test code = 432) 1 % BASOPHILS RELATIVE PERCENT (BEAKER) (test code = 437) 1 % NEUTROPHILS ABSOLUTE COUNT (BEAKER) (test code = 670) 7.45 K/ L 1.56-6.13 H LYMPHOCYTES ABSOLUTE COUNT (BEAKER) (test code = 414) 0.51 K/ L 1.18-3.74 L MONOCYTES ABSOLUTE COUNT (BEAKER) (test code = 415) 0.74 K/ L 0. 24-0.36 H EOSINOPHILS ABSOLUTE COUNT (BEAKER) (test code = 416) 0.11 K/ L 0.04-0.36 BASOPHILS ABSOLUTE COUNT (BEAKER) (test code = 417) 0.08 K/ L 0. 01-0.08 IMMATURE GRANULOCYTES-RELATIVE PERCENT (BEAKER) (test code = 2801) 0 % 0-1 URINALYSIS W/ [id number] 05:48:00* Test Item Value Reference Range Interpretation Comments COLOR (BEAKER) (test code = 470) Yellow CLARITY (BEAKER) (test code = 469) Clear SPECIFIC GRAVITY UA (BEAKER) (test code = 468) 1.009 1.001-1 .035 PH UA (BEAKER) (test code = 467) 5.5 5.0-8.0 PROTEIN UA (BEAKER) (test code = 464) 30 mg/dL Negative A GLUCOSE UA (BEAKER) (test code = 365) Negative Negative KETONES UA (BEAKER) (test code = 371) Negative Negative BILIRUBIN UA (BEAKER) (test code = 462) Negative Negative BLOOD UA (BEAKER) (test code = 461) Trace Negative A NITRITE UA (BEAKER) (test code = 465) Negative Negative LEUKOCYTE ESTERASE UA (BEAKER) (test code = 466) Negative Negat yin UROBILINOGEN UA (BEAKER) (test code = 463) 0.2 mg/dL 0.2-1.0 RBC UA (BEAKER) (test code = 519) < /HPF WBC UA (BEAKER) (test code = 520) 1 /HPF BACTERIA (BEAKER) (test code = 517) Occasional SQUAMOUS EPITHELIAL (BEAKER) (test code = 516) 4 /HPF YEAST (BEAKER) (test code = 1585) Occasional SOURCE(BEAKER) (test code = 0427) Urine, Clean Catch RAPID INFLUENZA A&B [id number] 04:26:00* Test Item Value Reference Range Interpretation Comments RAPID INFLUENZA A AG (BEAKER) (test code = 1622) Negative Negative, Inconclusive RAPID INFLUENZA B AG (BEAKER) (test code = 1623) Negative Negative, Inconclusive CBC W/PLT COUNT & AUTO [id number] 01:08:00* Test Item Value Reference Range Interpretation Comments WHITE BLOOD CELL COUNT (BEAKER) (test code = 775) 10.9 K/ L 3.5- 10.5 H RED BLOOD CELL COUNT (BEAKER) (test code = 761) 2.76 M/ L 3.93-5 .22 L HEMOGLOBIN (BEAKER) (test code = 410) 7.9 GM/DL 11.2-15.7 L HEMATOCRIT (BEAKER) (test code = 411) 25.3 % 34.1-44.9 L MEAN CORPUSCULAR VOLUME (BEAKER) (test code = 753) 91.7 fL 79. 4-94.8 MEAN CORPUSCULAR HEMOGLOBIN (BEAKER) (test code = 751) 28.6 pg 25.6-32.2 MEAN CORPUSCULAR HEMOGLOBIN CONC (BEAKER) (test code = 752) 31.2 GM/DL 32.2-35.5 L RED CELL DISTRIBUTION WIDTH (BEAKER) (test code = 412) 15.2 % 11.7-14.4 H PLATELET COUNT (BEAKER) (test code = 756) 323 K/CU MM 150-450 MEAN PLATELET VOLUME (BEAKER) (test code = 754) 10.2 fL 9.4-12 .3 NUCLEATED RED BLOOD CELLS (BEAKER) (test code = 413) 0 /100 WBC 0 -0 NEUTROPHILS RELATIVE PERCENT (BEAKER) (test code = 429) 81 % LYMPHOCYTES RELATIVE PERCENT (BEAKER) (test code = 430) 8 % MONOCYTES RELATIVE PERCENT (BEAKER) (test code = 431) 7 % EOSINOPHILS RELATIVE PERCENT (BEAKER) (test code = 432) 3 % BASOPHILS RELATIVE PERCENT (BEAKER) (test code = 437) 1 % NEUTROPHILS ABSOLUTE COUNT (BEAKER) (test code = 670) 8.87 K/ L 1.56-6.13 H LYMPHOCYTES ABSOLUTE COUNT (BEAKER) (test code = 414) 0.82 K/ L 1.18-3.74 L MONOCYTES ABSOLUTE COUNT (BEAKER) (test code = 415) 0.73 K/ L 0. 24-0.36 H EOSINOPHILS ABSOLUTE COUNT (BEAKER) (test code = 416) 0.37 K/ L 0.04-0.36 H BASOPHILS ABSOLUTE COUNT (BEAKER) (test code = 417) 0.07 K/ L 0. 01-0.08 IMMATURE GRANULOCYTES-RELATIVE PERCENT (BEAKER) (test code = 2801) 1 % 0-1 CREATINE KINASE (CK), TOTAL AND [id number] 00:51:00* Test Item Value Reference Range Interpretation Comments CREATINE KINASE TOTAL (BEAKER) (test code = 380) 43 U/L 29-20 0 CREATINE KINASE-MB (BEAKER) (test code = 750) 0.7 ng/mL 0.0-6.6 CREATINE KINASE-MB INDEX (BEAKER) (test code = 395) 1.6 % CK-MB Reference Range:<6.7 Normal6.7-10.0 Borderline>10.0 Abnormal TROPONIN [id number] 00:51:00* Test Item Value Reference Range Interpretation Comments TROPONIN I (BEAKER) (test code = 397) 0.07 ng/mL 0.00-0.03 H Troponin I (TnI) levels must be interpreted in the context of the presenting sym ptoms and the clinical findings. Elevated TnI levels indicate myocardial damage, but are not specific for ischemic heart disease. Elevated TnI levels are seen in patients with other cardiac conditions (including myocarditis and congestive h eart failure), and slight TnI elevations occur in patients with other conditions , including sepsis, renal failure, acidosis, acute neurological disease, and per sistent tachyarrhythmia.B-TYPE NATRIURETIC FACTOR (BNP)2017-06-28 00:51:00* Test Item Value Reference Range Interpretation Comments B-TYPE NATRIURETIC PEPTIDE (BEAKER) (test code = 700) 1151 pg/mL 0-100 H BASIC METABOLIC [id number] 00:48:00* Test Item Value Reference Range Interpretation Comments SODIUM (BEAKER) (test code = 381) 136 meq/L 136-145 POTASSIUM (BEAKER) (test code = 379) 4.2 meq/L 3.5-5.1 CHLORIDE (BEAKER) (test code = 382) 101 meq/L 98-107 CO2 (BEAKER) (test code = 355) 25 meq/L 22-29 BLOOD UREA NITROGEN (BEAKER) (test code = 354) 35 mg/dL 7-21 H CREATININE (BEAKER) (test code = 358) 2.57 mg/dL 0.57-1.25 H GLUCOSE RANDOM (BEAKER) (test code = 652) 66 mg/dL 70-105 L CALCIUM (BEAKER) (test code = 697) 8.3 mg/dL 8.4-10.2 L EGFR (BEAKER) (test code = 1092) 19 mL/min/1.73 sq m ESTIMATED GFR IS NOT ACCURATE CREATININE CLEARANCE IN PREDICTING GLOMERULAR FILTRATION RATE. ESTIMATED GFR IS NOT APPLICABLE FOR DIALYSIS PATIENTS. [id number] 00:44:00* Test Item Value Reference Range Interpretation Comments MAGNESIUM (BEAKER) (test code = 627) 1.8 mg/dL 1.6-2.6 LACTIC ACID, VENOUS, WHOLE [id number] 00:40:00* Test Item Value Reference Range Interpretation Comments LACTATE BLOOD VENOUS (2) (BEAKER) (test code = 2872) 1.1 mmol/L 0 .5-2.2 Effective 11/18/2015: Units/Reference Range ChangeNew: 0.5-2.2 mmol/L Previous: 5 -20 mg/dLRAD, CHEST, 1 VIEW, NON [id number] 00:07:00Reason for exam:-> SHORTNESS OF BREATHReason for exam:->FEVERFINAL REPORT INDICATION: SHORTNESS OF BREATHFEVER COMPARISON: June 21, 2017 TECHNIQUE: Single frontal view of the chest. IMPRESSION:Lungs and pleura: Clear lungs. No effusion.Heart and mediastinum: Stable enlarged cardiac silhouette. Visible mediastinal surgical changes are stable.Osseous structures: No acute abnormality.Other: None. Signed: JR Bates Robert MDReport Verified Date/Time: 06/28/2017 00:07:42 Reading Location: [facility] C013Y CT Body Reading Room -GLUCOSE [id number] 12:36:00* Test Item Value Reference Range Interpretation Comments POC-GLUCOSE METER (BEAKER) (test code = 1538) 212 mg/dL 70-110 H TESTED AT [facility] [address] [facility] [address] POCT-GLUCOSE [id number] 08:02:00* Test Item Value Reference Range Interpretation Comments POC-GLUCOSE METER (BEAKER) (test code = 1538) 195 mg/dL 70-110 H TESTED AT [facility] [address] [facility] [address] BASIC METABOLIC [id number] 07:36:00* Test Item Value Reference Range Interpretation Comments SODIUM (BEAKER) (test code = 381) 137 meq/L 136-145 POTASSIUM (BEAKER) (test code = 379) 3.9 meq/L 3.5-5.1 CHLORIDE (BEAKER) (test code = 382) 102 meq/L 98-107 CO2 (BEAKER) (test code = 355) 26 meq/L 22-29 BLOOD UREA NITROGEN (BEAKER) (test code = 354) 38 mg/dL 7-21 H CREATININE (BEAKER) (test code = 358) 2.57 mg/dL 0.57-1.25 H GLUCOSE RANDOM (BEAKER) (test code = 652) 152 mg/dL 70-105 H CALCIUM (BEAKER) (test code = 697) 8.3 mg/dL 8.4-10.2 L EGFR (BEAKER) (test code = 1092) 19 mL/min/1.73 sq m ESTIMATED GFR IS NOT ACCURATE CREATININE CLEARANCE IN PREDICTING GLOMERULAR FILTRATION RATE. ESTIMATED GFR IS NOT APPLICABLE FOR DIALYSIS PATIENTS. CBC (HEMOGRAM ONLY)2017-06-24 07:09:00* Test Item Value Reference Range Interpretation Comments WHITE BLOOD CELL COUNT (BEAKER) (test code = 775) 13.6 K/ L 3.5- 10.5 H RED BLOOD CELL COUNT (BEAKER) (test code = 761) 2.89 M/ L 3.93-5 .22 L HEMOGLOBIN (BEAKER) (test code = 410) 8.3 GM/DL 11.2-15.7 L HEMATOCRIT (BEAKER) (test code = 411) 27.0 % 34.1-44.9 L MEAN CORPUSCULAR VOLUME (BEAKER) (test code = 753) 93.4 fL 79. 4-94.8 MEAN CORPUSCULAR HEMOGLOBIN (BEAKER) (test code = 751) 28.7 pg 25.6-32.2 MEAN CORPUSCULAR HEMOGLOBIN CONC (BEAKER) (test code = 752) 30.7 GM/DL 32.2-35.5 L RED CELL DISTRIBUTION WIDTH (BEAKER) (test code = 412) 15.3 % 11.7-14.4 H PLATELET COUNT (BEAKER) (test code = 756) 239 K/CU MM 150-450 MEAN PLATELET VOLUME (BEAKER) (test code = 754) 10.6 fL 9.4-12 .3 NUCLEATED RED BLOOD CELLS (BEAKER) (test code = 413) 0 /100 WBC 0 -0 POCT-GLUCOSE [id number] 20:54:00* Test Item Value Reference Range Interpretation Comments POC-GLUCOSE METER (BEAKER) (test code = 1538) 179 mg/dL 70-110 H TESTED AT [address] [address] POCT-GLUCOSE [id number] 17:25:00* Test Item Value Reference Range Interpretation Comments POC-GLUCOSE METER (BEAKER) (test code = 1538) 171 mg/dL 70-110 H TESTED AT [address] [address] POCT-GLUCOSE [id number] 13:11:00* Test Item Value Reference Range Interpretation Comments POC-GLUCOSE METER (BEAKER) (test code = 1538) 249 mg/dL 70-110 H TESTED AT [address] [address] POCT-GLUCOSE [id number] 08:29:00* Test Item Value Reference Range Interpretation Comments POC-GLUCOSE METER (BEAKER) (test code = 1538) 133 mg/dL 70-110 H TESTED AT [address] [address] CALCIUM, [id number] 06:44:00* Test Item Value Reference Range Interpretation Comments CALCIUM IONIZED (BEAKER) (test code = 698) 0.90 mmol/L 1.12-1.27 L PH, BLOOD (BEAKER) (test code = 1810) 7.48 BASIC METABOLIC [id number] 05:35:00* Test Item Value Reference Range Interpretation Comments SODIUM (BEAKER) (test code = 381) 135 meq/L 136-145 L POTASSIUM (BEAKER) (test code = 379) 3.8 meq/L 3.5-5.1 CHLORIDE (BEAKER) (test code = 382) 103 meq/L 98-107 CO2 (BEAKER) (test code = 355) 23 meq/L 22-29 BLOOD UREA NITROGEN (BEAKER) (test code = 354) 38 mg/dL 7-21 H CREATININE (BEAKER) (test code = 358) 2.43 mg/dL 0.57-1.25 H GLUCOSE RANDOM (BEAKER) (test code = 652) 129 mg/dL 70-105 H CALCIUM (BEAKER) (test code = 697) 8.1 mg/dL 8.4-10.2 L EGFR (BEAKER) (test code = 1092) 20 mL/min/1.73 sq m ESTIMATED GFR IS NOT ACCURATE CREATININE CLEARANCE IN PREDICTING GLOMERULAR FILTRATION RATE. ESTIMATED GFR IS NOT APPLICABLE FOR DIALYSIS PATIENTS. [id number] 05:30:00* Test Item Value Reference Range Interpretation Comments PHOSPHORUS (BEAKER) (test code = 604) 3.8 mg/dL 2.3-4.7 [id number] 05:30:00* Test Item Value Reference Range Interpretation Comments MAGNESIUM (BEAKER) (test code = 627) 1.8 mg/dL 1.6-2.6 CBC W/PLT COUNT & AUTO [id number] 05:23:00* Test Item Value Reference Range Interpretation Comments WHITE BLOOD CELL COUNT (BEAKER) (test code = 775) 13.2 K/ L 3.5- 10.5 H RED BLOOD CELL COUNT (BEAKER) (test code = 761) 2.82 M/ L 3.93-5 .22 L HEMOGLOBIN (BEAKER) (test code = 410) 8.2 GM/DL 11.2-15.7 L HEMATOCRIT (BEAKER) (test code = 411) 26.4 % 34.1-44.9 L MEAN CORPUSCULAR VOLUME (BEAKER) (test code = 753) 93.6 fL 79. 4-94.8 MEAN CORPUSCULAR HEMOGLOBIN (BEAKER) (test code = 751) 29.1 pg 25.6-32.2 MEAN CORPUSCULAR HEMOGLOBIN CONC (BEAKER) (test code = 752) 31.1 GM/DL 32.2-35.5 L RED CELL DISTRIBUTION WIDTH (BEAKER) (test code = 412) 15.0 % 11.7-14.4 H PLATELET COUNT (BEAKER) (test code = 756) 188 K/CU MM 150-450 MEAN PLATELET VOLUME (BEAKER) (test code = 754) 10.4 fL 9.4-12 .3 NUCLEATED RED BLOOD CELLS (BEAKER) (test code = 413) 0 /100 WBC 0 -0 NEUTROPHILS RELATIVE PERCENT (BEAKER) (test code = 429) 59 % LYMPHOCYTES RELATIVE PERCENT (BEAKER) (test code = 430) 23 % MONOCYTES RELATIVE PERCENT (BEAKER) (test code = 431) 8 % EOSINOPHILS RELATIVE PERCENT (BEAKER) (test code = 432) 9 % BASOPHILS RELATIVE PERCENT (BEAKER) (test code = 437) 1 % NEUTROPHILS ABSOLUTE COUNT (BEAKER) (test code = 670) 7.80 K/ L 1.56-6.13 H LYMPHOCYTES ABSOLUTE COUNT (BEAKER) (test code = 414) 2.98 K/ L 1.18-3.74 MONOCYTES ABSOLUTE COUNT (BEAKER) (test code = 415) 1.02 K/ L 0. 24-0.36 H EOSINOPHILS ABSOLUTE COUNT (BEAKER) (test code = 416) 1.24 K/ L 0.04-0.36 H BASOPHILS ABSOLUTE COUNT (BEAKER) (test code = 417) 0.12 K/ L 0. 01-0.08 H IMMATURE GRANULOCYTES-RELATIVE PERCENT (BEAKER) (test code = 2801) 1 % 0-1 POCT-GLUCOSE [id number] 22:33:00* Test Item Value Reference Range Interpretation Comments POC-GLUCOSE METER (BEAKER) (test code = 1538) 256 mg/dL 70-110 H TESTED AT [address] [address] POCT-GLUCOSE [id number] 18:29:00* Test Item Value Reference Range Interpretation Comments POC-GLUCOSE METER (BEAKER) (test code = 1538) 132 mg/dL 70-110 H TESTED AT [address] [address] POCT-GLUCOSE [id number] 13:02:00* Test Item Value Reference Range Interpretation Comments POC-GLUCOSE METER (BEAKER) (test code = 1538) 242 mg/dL 70-110 H TESTED AT [address] [address] POCT-GLUCOSE [id number] 08:30:00* Test Item Value Reference Range Interpretation Comments POC-GLUCOSE METER (BEAKER) (test code = 1538) 159 mg/dL 70-110 H TESTED AT [address] [address] CALCIUM, [id number] 05:11:00* Test Item Value Reference Range Interpretation Comments CALCIUM IONIZED (BEAKER) (test code = 698) 1.03 mmol/L 1.12-1.27 L PH, BLOOD (BEAKER) (test code = 1810) 7.41 BASIC METABOLIC [id number] 04:33:00* Test Item Value Reference Range Interpretation Comments SODIUM (BEAKER) (test code = 381) 136 meq/L 136-145 POTASSIUM (BEAKER) (test code = 379) 3.7 meq/L 3.5-5.1 CHLORIDE (BEAKER) (test code = 382) 102 meq/L 98-107 CO2 (BEAKER) (test code = 355) 26 meq/L 22-29 BLOOD UREA NITROGEN (BEAKER) (test code = 354) 35 mg/dL 7-21 H CREATININE (BEAKER) (test code = 358) 2.19 mg/dL 0.57-1.25 H GLUCOSE RANDOM (BEAKER) (test code = 652) 143 mg/dL 70-105 H CALCIUM (BEAKER) (test code = 697) 8.1 mg/dL 8.4-10.2 L EGFR (BEAKER) (test code = 1092) 23 mL/min/1.73 sq m ESTIMATED GFR IS NOT ACCURATE CREATININE CLEARANCE IN PREDICTING GLOMERULAR FILTRATION RATE. ESTIMATED GFR IS NOT APPLICABLE FOR DIALYSIS PATIENTS. [id number] 04:25:00* Test Item Value Reference Range Interpretation Comments PHOSPHORUS (BEAKER) (test code = 604) 3.5 mg/dL 2.3-4.7 [id number] 04:25:00* Test Item Value Reference Range Interpretation Comments MAGNESIUM (BEAKER) (test code = 627) 1.9 mg/dL 1.6-2.6 CBC (HEMOGRAM ONLY)2017-06-22 04:07:00* Test Item Value Reference Range Interpretation Comments WHITE BLOOD CELL COUNT (BEAKER) (test code = 775) 12.2 K/ L 3.5- 10.5 H RED BLOOD CELL COUNT (BEAKER) (test code = 761) 2.77 M/ L 3.93-5 .22 L HEMOGLOBIN (BEAKER) (test code = 410) 8.2 GM/DL 11.2-15.7 L HEMATOCRIT (BEAKER) (test code = 411) 25.2 % 34.1-44.9 L MEAN CORPUSCULAR VOLUME (BEAKER) (test code = 753) 91.0 fL 79. 4-94.8 MEAN CORPUSCULAR HEMOGLOBIN (BEAKER) (test code = 751) 29.6 pg 25.6-32.2 MEAN CORPUSCULAR HEMOGLOBIN CONC (BEAKER) (test code = 752) 32.5 GM/DL 32.2-35.5 RED CELL DISTRIBUTION WIDTH (BEAKER) (test code = 412) 14.6 % 11.7-14.4 H PLATELET COUNT (BEAKER) (test code = 756) 208 K/CU MM 150-450 MEAN PLATELET VOLUME (BEAKER) (test code = 754) 10.5 fL 9.4-12 .3 NUCLEATED RED BLOOD CELLS (BEAKER) (test code = 413) 0 /100 WBC 0 -0 POCT-GLUCOSE [id number] 23:34:00* Test Item Value Reference Range Interpretation Comments POC-GLUCOSE METER (BEAKER) (test code = 1538) 197 mg/dL 70-110 H TESTED AT [facility] [address] [facility] [address] POCT-GLUCOSE [id number] 17:02:00* Test Item Value Reference Range Interpretation Comments POC-GLUCOSE METER (BEAKER) (test code = 1538) 197 mg/dL 70-110 H TESTED AT [address] [address] MUGA, CARD IMAGING, EQ, REST, WM, [id number] 16:08:00FINAL REPORT PROCEDURE: Resting RADIONUCLIDE VENTRICULOGRAM (MUGA scan) CPT CODE: 50663 INDICATION: Prior revascularization (either PTCA or CABG) HISTORY: Cardiac risk factors: CAD/[place], ACB 06/16/17, Diabetes, Hypertension, Dyslipidemia. PROTOCOL: Autologous [...] LV systolic function. 2. Compared to previous [facility] study on 06/13/17 there is no significant change. Signed: Jorge Dye MDReport Verified Date/Time: 06/21/2017 16:08:07 Reading Location: [address] Reading Room - GLUCOSE [id number] 13:55:00* Test Item Value Reference Range Interpretation Comments POC-GLUCOSE METER (BEAKER) (test code = 1538) 220 mg/dL 70-110 H TESTED AT [facility] [address] [facility] [address] POCT-GLUCOSE [id number] 08:07:00* Test Item Value Reference Range Interpretation Comments POC-GLUCOSE METER (BEAKER) (test code = 1538) 194 mg/dL 70-110 H TESTED AT [facility] [address] [facility] [address] [id number] 07:41:00* Test Item Value Reference Range Interpretation Comments MAGNESIUM (BEAKER) (test code = 627) 1.9 mg/dL 1.6-2.6 BASIC METABOLIC [id number] 07:41:00* Test Item Value Reference Range Interpretation Comments SODIUM (BEAKER) (test code = 381) 137 meq/L 136-145 POTASSIUM (BEAKER) (test code = 379) 4.2 meq/L 3.5-5.1 CHLORIDE (BEAKER) (test code = 382) 103 meq/L 98-107 CO2 (BEAKER) (test code = 355) 27 meq/L 22-29 BLOOD UREA NITROGEN (BEAKER) (test code = 354) 36 mg/dL 7-21 H CREATININE (BEAKER) (test code = 358) 2.10 mg/dL 0.57-1.25 H GLUCOSE RANDOM (BEAKER) (test code = 652) 170 mg/dL 70-105 H CALCIUM (BEAKER) (test code = 697) 8.4 mg/dL 8.4-10.2 EGFR (BEAKER) (test code = 1092) 24 mL/min/1.73 sq m ESTIMATED GFR IS NOT ACCURATE CREATININE CLEARANCE IN PREDICTING GLOMERULAR FILTRATION RATE. ESTIMATED GFR IS NOT APPLICABLE FOR DIALYSIS PATIENTS. RAD, CHEST, 1 VIEW, NON [id number] 07:37:00Reason for exam:->s/p CABGShould this be performed [...] The patient is status post sternotomy. Signed: Rosemary Elizabeth MDReport Verified Date/Time: 06/21/2017 07:37:03 Reading Location: [facility] Diagnostic Imaging Reading Room - [place] [address] W/PLT COUNT & AUTO [id number] 07:14:00* Test Item Value Reference Range Interpretation Comments WHITE BLOOD CELL COUNT (BEAKER) (test code = 775) 12.6 K/ L 3.5- 10.5 H RED BLOOD CELL COUNT (BEAKER) (test code = 761) 2.96 M/ L 3.93-5 .22 L HEMOGLOBIN (BEAKER) (test code = 410) 8.8 GM/DL 11.2-15.7 L HEMATOCRIT (BEAKER) (test code = 411) 27.1 % 34.1-44.9 L MEAN CORPUSCULAR VOLUME (BEAKER) (test code = 753) 91.6 fL 79. 4-94.8 MEAN CORPUSCULAR HEMOGLOBIN (BEAKER) (test code = 751) 29.7 pg 25.6-32.2 MEAN CORPUSCULAR HEMOGLOBIN CONC (BEAKER) (test code = 752) 32.5 GM/DL 32.2-35.5 RED CELL DISTRIBUTION WIDTH (BEAKER) (test code = 412) 14.4 % 11.7-14.4 PLATELET COUNT (BEAKER) (test code = 756) 183 K/CU MM 150-450 MEAN PLATELET VOLUME (BEAKER) (test code = 754) 10.7 fL 9.4-12 .3 NUCLEATED RED BLOOD CELLS (BEAKER) (test code = 413) 0 /100 WBC 0 -0 NEUTROPHILS RELATIVE PERCENT (BEAKER) (test code = 429) 67 % LYMPHOCYTES RELATIVE PERCENT (BEAKER) (test code = 430) 16 % MONOCYTES RELATIVE PERCENT (BEAKER) (test code = 431) 8 % EOSINOPHILS RELATIVE PERCENT (BEAKER) (test code = 432) 7 % BASOPHILS RELATIVE PERCENT (BEAKER) (test code = 437) 1 % NEUTROPHILS ABSOLUTE COUNT (BEAKER) (test code = 670) 8.42 K/ L 1.56-6.13 H LYMPHOCYTES ABSOLUTE COUNT (BEAKER) (test code = 414) 2.03 K/ L 1.18-3.74 MONOCYTES ABSOLUTE COUNT (BEAKER) (test code = 415) 1.06 K/ L 0. 24-0.36 H EOSINOPHILS ABSOLUTE COUNT (BEAKER) (test code = 416) 0.90 K/ L 0.04-0.36 H BASOPHILS ABSOLUTE COUNT (BEAKER) (test code = 417) 0.11 K/ L 0. 01-0.08 H IMMATURE GRANULOCYTES-RELATIVE PERCENT (BEAKER) (test code = 2801) 1 % 0-1 POCT-GLUCOSE [id number] 20:56:00* Test Item Value Reference Range Interpretation Comments POC-GLUCOSE METER (BEAKER) (test code = 1538) 212 mg/dL 70-110 H TESTED AT [place] [id number] POCT-GLUCOSE [id number] 18:25:00* Test Item Value Reference Range Interpretation Comments POC-GLUCOSE METER (BEAKER) (test code = 1538) 189 mg/dL 70-110 H TESTED AT [address] [address] POCT-GLUCOSE [id number] 13:06:00* Test Item Value Reference Range Interpretation Comments POC-GLUCOSE METER (BEAKER) (test code = 1538) 288 mg/dL 70-110 H TESTED AT [address] [address] POCT-GLUCOSE [id number] 08:54:00* Test Item Value Reference Range Interpretation Comments POC-GLUCOSE METER (BEAKER) (test code = 1538) 175 mg/dL 70-110 H TESTED AT [address] [address] BASIC METABOLIC [id number] 08:21:00* Test Item Value Reference Range Interpretation Comments SODIUM (BEAKER) (test code = 381) 135 meq/L 136-145 L POTASSIUM (BEAKER) (test code = 379) 3.7 meq/L 3.5-5.1 CHLORIDE (BEAKER) (test code = 382) 101 meq/L 98-107 CO2 (BEAKER) (test code = 355) 24 meq/L 22-29 BLOOD UREA NITROGEN (BEAKER) (test code = 354) 41 mg/dL 7-21 H CREATININE (BEAKER) (test code = 358) 2.34 mg/dL 0.57-1.25 H GLUCOSE RANDOM (BEAKER) (test code = 652) 172 mg/dL 70-105 H CALCIUM (BEAKER) (test code = 697) 8.3 mg/dL 8.4-10.2 L EGFR (BEAKER) (test code = 1092) 21 mL/min/1.73 sq m ESTIMATED GFR IS NOT ACCURATE CREATININE CLEARANCE IN PREDICTING GLOMERULAR FILTRATION RATE. ESTIMATED GFR IS NOT APPLICABLE FOR DIALYSIS PATIENTS. [id number] 08:14:00* Test Item Value Reference Range Interpretation Comments PHOSPHORUS (BEAKER) (test code = 604) 3.3 mg/dL 2.3-4.7 [id number] 08:14:00* Test Item Value Reference Range Interpretation Comments MAGNESIUM (BEAKER) (test code = 627) 1.8 mg/dL 1.6-2.6 HEPATIC FUNCTION [id number] 08:14:00* Test Item Value Reference Range Interpretation Comments TOTAL PROTEIN (BEAKER) (test code = 770) 5.7 gm/dL 6.0-8.3 L ALBUMIN (BEAKER) (test code = 1145) 2.6 g/dL 3.5-5.0 L BILIRUBIN TOTAL (BEAKER) (test code = 377) 0.6 mg/dL 0.2-1.2 BILIRUBIN DIRECT (BEAKER) (test code = 706) 0.3 mg/dL 0.1-0.5 ALKALINE PHOSPHATASE (BEAKER) (test code = 346) 56 U/L 40-150 AST (SGOT) (BEAKER) (test code = 353) 16 U/L 5-34 ALT (SGPT) (BEAKER) (test code = 347) 19 U/L 6-55 RAD, CHEST, 1 VIEW, NON [id number] 07:51:00Reason for exam:->s/p CABGShould this be performed [...] effusion identified. Mild bibasilar atelectasis. Signed: Srikanth Arcosort Verified Date/Time: 06/20/2017 07:51:22 Reading Location: [facility] Radiology Reading Room IUM, [id number] 07:20:00* Test Item Value Reference Range Interpretation Comments CALCIUM IONIZED (BEAKER) (test code = 698) 1.02 mmol/L 1.12-1.27 L PH, BLOOD (BEAKER) (test code = 1810) 7.42 CBC W/PLT COUNT & AUTO [id number] 07:08:00* Test Item Value Reference Range Interpretation Comments WHITE BLOOD CELL COUNT (BEAKER) (test code = 775) 11.8 K/ L 3.5- 10.5 H RED BLOOD CELL COUNT (BEAKER) (test code = 761) 3.13 M/ L 3.93-5 .22 L HEMOGLOBIN (BEAKER) (test code = 410) 9.1 GM/DL 11.2-15.7 L HEMATOCRIT (BEAKER) (test code = 411) 28.2 % 34.1-44.9 L MEAN CORPUSCULAR VOLUME (BEAKER) (test code = 753) 90.1 fL 79. 4-94.8 MEAN CORPUSCULAR HEMOGLOBIN (BEAKER) (test code = 751) 29.1 pg 25.6-32.2 MEAN CORPUSCULAR HEMOGLOBIN CONC (BEAKER) (test code = 752) 32.3 GM/DL 32.2-35.5 RED CELL DISTRIBUTION WIDTH (BEAKER) (test code = 412) 14.4 % 11.7-14.4 PLATELET COUNT (BEAKER) (test code = 756) 164 K/CU MM 150-450 MEAN PLATELET VOLUME (BEAKER) (test code = 754) 11.3 fL 9.4-12 .3 NUCLEATED RED BLOOD CELLS (BEAKER) (test code = 413) 0 /100 WBC 0 -0 NEUTROPHILS RELATIVE PERCENT (BEAKER) (test code = 429) 65 % LYMPHOCYTES RELATIVE PERCENT (BEAKER) (test code = 430) 23 % MONOCYTES RELATIVE PERCENT (BEAKER) (test code = 431) 7 % EOSINOPHILS RELATIVE PERCENT (BEAKER) (test code = 432) 4 % BASOPHILS RELATIVE PERCENT (BEAKER) (test code = 437) 1 % NEUTROPHILS ABSOLUTE COUNT (BEAKER) (test code = 670) 7.64 K/ L 1.56-6.13 H LYMPHOCYTES ABSOLUTE COUNT (BEAKER) (test code = 414) 2.73 K/ L 1.18-3.74 MONOCYTES ABSOLUTE COUNT (BEAKER) (test code = 415) 0.82 K/ L 0. 24-0.36 H EOSINOPHILS ABSOLUTE COUNT (BEAKER) (test code = 416) 0.44 K/ L 0.04-0.36 H BASOPHILS ABSOLUTE COUNT (BEAKER) (test code = 417) 0.09 K/ L 0. 01-0.08 H IMMATURE GRANULOCYTES-RELATIVE PERCENT (BEAKER) (test code = 2801) 0 % 0-1 POCT-GLUCOSE [id number] 21:00:00* Test Item Value Reference Range Interpretation Comments POC-GLUCOSE METER (BEAKER) (test code = 1538) 220 mg/dL 70-110 H TESTED AT [place] [id number] [facility] [address] POCT-GLUCOSE [id number] 17:59:00* Test Item Value Reference Range Interpretation Comments POC-GLUCOSE METER (BEAKER) (test code = 1538) 220 mg/dL 70-110 H TESTED AT [address] [address] BASIC METABOLIC [id number] 13:06:00* Test Item Value Reference Range Interpretation Comments SODIUM (BEAKER) (test code = 381) 136 meq/L 136-145 POTASSIUM (BEAKER) (test code = 379) 3.8 meq/L 3.5-5.1 CHLORIDE (BEAKER) (test code = 382) 105 meq/L 98-107 CO2 (BEAKER) (test code = 355) 20 meq/L 22-29 L BLOOD UREA NITROGEN (BEAKER) (test code = 354) 42 mg/dL 7-21 H CREATININE (BEAKER) (test code = 358) 2.39 mg/dL 0.57-1.25 H GLUCOSE RANDOM (BEAKER) (test code = 652) 208 mg/dL 70-105 H CALCIUM (BEAKER) (test code = 697) 8.0 mg/dL 8.4-10.2 L EGFR (BEAKER) (test code = 1092) 20 mL/min/1.73 sq m ESTIMATED GFR IS NOT ACCURATE CREATININE CLEARANCE IN PREDICTING GLOMERULAR FILTRATION RATE. ESTIMATED GFR IS NOT APPLICABLE FOR DIALYSIS PATIENTS. [id number] 12:53:00* Test Item Value Reference Range Interpretation Comments MAGNESIUM (BEAKER) (test code = 627) 1.9 mg/dL 1.6-2.6 POCT-GLUCOSE [id number] 12:45:00* Test Item Value Reference Range Interpretation Comments POC-GLUCOSE METER (BEAKER) (test code = 1538) 227 mg/dL 70-110 H TESTED AT [facility] [address] [facility] [address] HEMOGLOBIN AND [id number] 10:50:00* Test Item Value Reference Range Interpretation Comments HEMOGLOBIN (BEAKER) (test code = 410) 8.6 GM/DL 11.2-15.7 L HEMATOCRIT (BEAKER) (test code = 411) 26.3 % 34.1-44.9 L RAD, CHEST, 1 VIEW, NON [id number] 08:29:00Reason for exam:->s/p CABGShould this be performed at the bedside?->YesFINAL REPORT Chest one view. Clinical history: s/p CABG Comparison: 06/18/2017 Discussion: A frontal chest is provided. Cardiomediastinal contours are unchanged. Lines and tubes are in stable position. There is mild vascular congestion and interstitial edema. No pneumothorax. Suspect small right effusion. Signed: Srikanth [place] Verified Date/Time: 06/19/2017 08:29:34 Reading Location: [facility] Radiology Reading Room -GLUCOSE [id number] 06:56:00* Test Item Value Reference Range Interpretation Comments POC-GLUCOSE METER (BEAKER) (test code = 1538) 187 mg/dL 70-110 H TESTED AT [facility] [address] [facility] [address] BASIC METABOLIC [id number] 06:35:00* Test Item Value Reference Range Interpretation Comments SODIUM (BEAKER) (test code = 381) 136 meq/L 136-145 POTASSIUM (BEAKER) (test code = 379) 4.1 meq/L 3.5-5.1 CHLORIDE (BEAKER) (test code = 382) 104 meq/L 98-107 CO2 (BEAKER) (test code = 355) 22 meq/L 22-29 BLOOD UREA NITROGEN (BEAKER) (test code = 354) 42 mg/dL 7-21 H CREATININE (BEAKER) (test code = 358) 2.58 mg/dL 0.57-1.25 H GLUCOSE RANDOM (BEAKER) (test code = 652) 181 mg/dL 70-105 H CALCIUM (BEAKER) (test code = 697) 8.2 mg/dL 8.4-10.2 L EGFR (BEAKER) (test code = 1092) 19 mL/min/1.73 sq m ESTIMATED GFR IS NOT ACCURATE CREATININE CLEARANCE IN PREDICTING GLOMERULAR FILTRATION RATE. ESTIMATED GFR IS NOT APPLICABLE FOR DIALYSIS PATIENTS. [id number] 04:59:00* Test Item Value Reference Range Interpretation Comments PHOSPHORUS (BEAKER) (test code = 604) 4.5 mg/dL 2.3-4.7 [id number] 04:59:00* Test Item Value Reference Range Interpretation Comments MAGNESIUM (BEAKER) (test code = 627) 1.9 mg/dL 1.6-2.6 HEPATIC FUNCTION [id number] 04:59:00* Test Item Value Reference Range Interpretation Comments TOTAL PROTEIN (BEAKER) (test code = 770) 5.2 gm/dL 6.0-8.3 L ALBUMIN (BEAKER) (test code = 1145) 2.4 g/dL 3.5-5.0 L BILIRUBIN TOTAL (BEAKER) (test code = 377) 0.5 mg/dL 0.2-1.2 BILIRUBIN DIRECT (BEAKER) (test code = 706) 0.2 mg/dL 0.1-0.5 ALKALINE PHOSPHATASE (BEAKER) (test code = 346) 53 U/L 40-150 AST (SGOT) (BEAKER) (test code = 353) 18 U/L 5-34 ALT (SGPT) (BEAKER) (test code = 347) 18 U/L 6-55 LACTATE DEHYDROGENASE (LDH)2017-06-19 04:59:00* Test Item Value Reference Range Interpretation Comments LACTATE DEHYDROGENASE (BEAKER) (test code = 635) 262 U/L 125-2 20 H CBC W/PLT COUNT & AUTO [id number] 04:38:00* Test Item Value Reference Range Interpretation Comments WHITE BLOOD CELL COUNT (BEAKER) (test code = 775) 12.5 K/ L 3.5- 10.5 H RED BLOOD CELL COUNT (BEAKER) (test code = 761) 2.36 M/ L 3.93-5 .22 L HEMOGLOBIN (BEAKER) (test code = 410) 6.7 GM/DL 11.2-15.7 L HEMATOCRIT (BEAKER) (test code = 411) 21.1 % 34.1-44.9 L MEAN CORPUSCULAR VOLUME (BEAKER) (test code = 753) 89.4 fL 79. 4-94.8 MEAN CORPUSCULAR HEMOGLOBIN (BEAKER) (test code = 751) 28.4 pg 25.6-32.2 MEAN CORPUSCULAR HEMOGLOBIN CONC (BEAKER) (test code = 752) 31.8 GM/DL 32.2-35.5 L RED CELL DISTRIBUTION WIDTH (BEAKER) (test code = 412) 14.4 % 11.7-14.4 PLATELET COUNT (BEAKER) (test code = 756) 113 K/CU MM 150-450 L MEAN PLATELET VOLUME (BEAKER) (test code = 754) 11.7 fL 9.4-12 .3 NUCLEATED RED BLOOD CELLS (BEAKER) (test code = 413) 0 /100 WBC 0 -0 NEUTROPHILS RELATIVE PERCENT (BEAKER) (test code = 429) 77 % LYMPHOCYTES RELATIVE PERCENT (BEAKER) (test code = 430) 15 % MONOCYTES RELATIVE PERCENT (BEAKER) (test code = 431) 6 % EOSINOPHILS RELATIVE PERCENT (BEAKER) (test code = 432) 1 % BASOPHILS RELATIVE PERCENT (BEAKER) (test code = 437) 1 % NEUTROPHILS ABSOLUTE COUNT (BEAKER) (test code = 670) 9.63 K/ L 1.56-6.13 H LYMPHOCYTES ABSOLUTE COUNT (BEAKER) (test code = 414) 1.86 K/ L 1.18-3.74 MONOCYTES ABSOLUTE COUNT (BEAKER) (test code = 415) 0.68 K/ L 0. 24-0.36 H EOSINOPHILS ABSOLUTE COUNT (BEAKER) (test code = 416) 0.15 K/ L 0.04-0.36 BASOPHILS ABSOLUTE COUNT (BEAKER) (test code = 417) 0.08 K/ L 0. 01-0.08 IMMATURE GRANULOCYTES-RELATIVE PERCENT (BEAKER) (test code = 2801) 1 % 0-1 CALCIUM, [id number] 03:47:00* Test Item Value Reference Range Interpretation Comments CALCIUM IONIZED (BEAKER) (test code = 698) 1.13 mmol/L 1.12-1.27 PH, BLOOD (BEAKER) (test code = 1810) 7.41 OXYGEN SATURATION, [id number] 03:46:00* Test Item Value Reference Range Interpretation Comments O2 SATURATION (MEASURED) (BEAKER) (test code = 1455) 57.8 % [id number] 19:13:00* Test Item Value Reference Range Interpretation Comments MAGNESIUM (BEAKER) (test code = 627) 2.2 mg/dL 1.6-2.6 Specimen slightly hemolyzed PRN - repeat glucose levels every 1 hour or as specified by insulin titration or ders until glucose level is less than 450 mg/dLCheck Serum Magnesium level 2 spenser rs after IV magnesium replacement.[id number] 19:13:00* Test Item Value Reference Range Interpretation Comments GLUCOSE RANDOM (BEAKER) (test code = 652) 150 mg/dL 70-105 H PRN - repeat glucose levels every 1 hour or as specified by insulin titration or ders until glucose level is less than 450 mg/dLCheck Serum Magnesium level 2 spenser rs after IV magnesium replacement.[id number] 14:28:00* Test Item Value Reference Range Interpretation Comments POTASSIUM (BEAKER) (test code = 379) 4.2 meq/L 3.5-5.1 PRN - repeat glucose levels every 1 hour or as specified by insulin titration or ders until glucose level is less than 450 mg/dLCheck Serum Magnesium level 2 spenser rs after IV magnesium replacement.Check Serum Potassium level 2 hours after oral potassium replacement completed or 30 min after intravenous potassium replaceme nt.[id number] 14:28:00* Test Item Value Reference Range Interpretation Comments MAGNESIUM (BEAKER) (test code = 627) 2.0 mg/dL 1.6-2.6 PRN - repeat glucose levels every 1 hour or as specified by insulin titration or ders until glucose level is less than 450 mg/dLCheck Serum Magnesium level 2 spenser rs after IV magnesium replacement.Check Serum Potassium level 2 hours after oral potassium replacement completed or 30 min after intravenous potassium replaceme nt.[id number] 14:28:00* Test Item Value Reference Range Interpretation Comments GLUCOSE RANDOM (BEAKER) (test code = 652) 150 mg/dL 70-105 H PRN - repeat glucose levels every 1 hour or as specified by insulin titration or ders until glucose level is less than 450 mg/dLCheck Serum Magnesium level 2 spenser rs after IV magnesium replacement.Check Serum Potassium level 2 hours after oral potassium replacement completed or 30 min after intravenous potassium replaceme nt.HEMOGLOBIN AND [id number] 14:17:00* Test Item Value Reference Range Interpretation Comments HEMOGLOBIN (BEAKER) (test code = 410) 7.1 GM/DL 11.2-15.7 L HEMATOCRIT (BEAKER) (test code = 411) 21.5 % 34.1-44.9 L CALCIUM, [id number] 14:13:00* Test Item Value Reference Range Interpretation Comments CALCIUM IONIZED (BEAKER) (test code = 698) 1.22 mmol/L 1.12-1.27 PH, BLOOD (BEAKER) (test code = 1810) 7.43 Check serum Ionized Calcium level after 4 hours after IV Calcium replacement. [id number] 08:39:00* Test Item Value Reference Range Interpretation Comments MAGNESIUM (BEAKER) (test code = 627) 2.1 mg/dL 1.6-2.6 Specimen slightly hemolyzed PRN - repeat glucose levels every 1 hour or as specified by insulin titration or ders until glucose level is less than 450 mg/dLCheck Serum Magnesium level 2 spenser rs after IV magnesium replacement.Check Serum Potassium level 2 hours after oral potassium replacement completed or 30 min after intravenous potassium replaceme nt.[id number] 08:39:00* Test Item Value Reference Range Interpretation Comments POTASSIUM (BEAKER) (test code = 379) 4.6 meq/L 3.5-5.1 Specimen slightly hemolyzed PRN - repeat glucose levels every 1 hour or as specified by insulin titration or ders until glucose level is less than 450 mg/dLCheck Serum Magnesium level 2 spenser rs after IV magnesium replacement.Check Serum Potassium level 2 hours after oral potassium replacement completed or 30 min after intravenous potassium replaceme nt.[id number] 08:39:00* Test Item Value Reference Range Interpretation Comments GLUCOSE RANDOM (BEAKER) (test code = 652) 153 mg/dL 70-105 H PRN - repeat glucose levels every 1 hour or as specified by insulin titration or ders until glucose level is less than 450 mg/dLCheck Serum Magnesium level 2 spenser rs after IV magnesium replacement.Check Serum Potassium level 2 hours after oral potassium replacement completed or 30 min after intravenous potassium replaceme nt.BLOOD GAS, [id number] 08:27:00* Test Item Value Reference Range Interpretation Comments PH ARTERIAL (BEAKER) (test code = 383) 7.44 7.35-7.45 PCO2 ARTERIAL (BEAKER) (test code = 384) 29 mmHg 35-45 L PO2 ARTERIAL (BEAKER) (test code = 385) 72 mmHg 80-90 L O2 SATURATION ARTERIAL (BEAKER) (test code = 386) 95.4 % 96.0 -97.0 L HCO3 ARTERIAL (BEAKER) (test code = 388) 20 mmol/L 21-29 L BASE EXCESS ARTERIAL (BEAKER) (test code = 387) -4.1 mmol/L -2.0-3 .0 L PATIENT TEMPERATURE (BEAKER) (test code = 1818) 36.7 C FIO2 (BEAKER) (test code = 1819) 32.0 % RAD, CHEST, 1 VIEW, NON [id number] 05:53:00Reason for exam:-> intubated/CTShould this be performed at the bedside?->YesFINAL REPORT [...] pneumothorax.Heart and mediastinum: Stable contours. Stable surgical changes .Additional findings: None. Signed: JR Bates Robert MDReport Verified D ate/Time: 06/18/2017 05:53:02 Reading Location: [facility] C013Y CT Body Reading Ro om -GLUCOSE [id number] 05:10:00* Test Item Value Reference Range Interpretation Comments POC-GLUCOSE METER (BEAKER) (test code = 1538) 145 mg/dL 70-110 H TESTED AT [facility] [address] [facility] [address] POCT-GLUCOSE [id number] 05:10:00* Test Item Value Reference Range Interpretation Comments POC-GLUCOSE METER (BEAKER) (test code = 1538) 144 mg/dL 70-110 H TESTED AT [facility] [address] [facility] [address] CALCIUM, [id number] 04:07:00* Test Item Value Reference Range Interpretation Comments CALCIUM IONIZED (BEAKER) (test code = 698) 1.17 mmol/L 1.12-1.27 PH, BLOOD (BEAKER) (test code = 1810) 7.42 OXYGEN SATURATION, [id number] 04:05:00* Test Item Value Reference Range Interpretation Comments O2 SATURATION (MEASURED) (BEAKER) (test code = 1455) 98.4 % BASIC METABOLIC [id number] 03:48:00* Test Item Value Reference Range Interpretation Comments SODIUM (BEAKER) (test code = 381) 140 meq/L 136-145 POTASSIUM (BEAKER) (test code = 379) 4.3 meq/L 3.5-5.1 CHLORIDE (BEAKER) (test code = 382) 110 meq/L 98-107 H CO2 (BEAKER) (test code = 355) 20 meq/L 22-29 L BLOOD UREA NITROGEN (BEAKER) (test code = 354) 35 mg/dL 7-21 H CREATININE (BEAKER) (test code = 358) 2.64 mg/dL 0.57-1.25 H GLUCOSE RANDOM (BEAKER) (test code = 652) 140 mg/dL 70-105 H CALCIUM (BEAKER) (test code = 697) 8.7 mg/dL 8.4-10.2 EGFR (BEAKER) (test code = 1092) 18 mL/min/1.73 sq m ESTIMATED GFR IS NOT ACCURATE CREATININE CLEARANCE IN PREDICTING GLOMERULAR FILTRATION RATE. ESTIMATED GFR IS NOT APPLICABLE FOR DIALYSIS PATIENTS. LACTIC ACID, ARTERIAL, WHOLE [id number] 03:45:00* Test Item Value Reference Range Interpretation Comments LACTATE BLOOD ARTERIAL (2) (BEAKER) (test code = 2874) 1.1 mmol/L 0.5-2.2 Effective 11/18/2015: Units/Reference Range ChangeNew: 0.5-2.2 mmol/L Previous: 5 -20 mg/[id number] 03:45:00* Test Item Value Reference Range Interpretation Comments PHOSPHORUS (BEAKER) (test code = 604) 5.1 mg/dL 2.3-4.7 H [id number] 03:45:00* Test Item Value Reference Range Interpretation Comments MAGNESIUM (BEAKER) (test code = 627) 2.2 mg/dL 1.6-2.6 HEPATIC FUNCTION [id number] 03:45:00* Test Item Value Reference Range Interpretation Comments TOTAL PROTEIN (BEAKER) (test code = 770) 5.1 gm/dL 6.0-8.3 L ALBUMIN (BEAKER) (test code = 1145) 2.4 g/dL 3.5-5.0 L BILIRUBIN TOTAL (BEAKER) (test code = 377) 0.4 mg/dL 0.2-1.2 BILIRUBIN DIRECT (BEAKER) (test code = 706) 0.2 mg/dL 0.1-0.5 ALKALINE PHOSPHATASE (BEAKER) (test code = 346) 54 U/L 40-150 AST (SGOT) (BEAKER) (test code = 353) 30 U/L 5-34 ALT (SGPT) (BEAKER) (test code = 347) 22 U/L 6-55 LACTATE DEHYDROGENASE (LDH)2017-06-18 03:45:00* Test Item Value Reference Range Interpretation Comments LACTATE DEHYDROGENASE (BEAKER) (test code = 635) 282 U/L 125-2 20 H CBC W/PLT COUNT & AUTO [id number] 03:45:00* Test Item Value Reference Range Interpretation Comments WHITE BLOOD CELL COUNT (BEAKER) (test code = 775) 17.0 K/ L 3.5- 10.5 H RED BLOOD CELL COUNT (BEAKER) (test code = 761) 2.74 M/ L 3.93-5 .22 L HEMOGLOBIN (BEAKER) (test code = 410) 7.8 GM/DL 11.2-15.7 L HEMATOCRIT (BEAKER) (test code = 411) 24.3 % 34.1-44.9 L MEAN CORPUSCULAR VOLUME (BEAKER) (test code = 753) 88.7 fL 79. 4-94.8 MEAN CORPUSCULAR HEMOGLOBIN (BEAKER) (test code = 751) 28.5 pg 25.6-32.2 MEAN CORPUSCULAR HEMOGLOBIN CONC (BEAKER) (test code = 752) 32.1 GM/DL 32.2-35.5 L RED CELL DISTRIBUTION WIDTH (BEAKER) (test code = 412) 14.5 % 11.7-14.4 H PLATELET COUNT (BEAKER) (test code = 756) 131 K/CU MM 150-450 L MEAN PLATELET VOLUME (BEAKER) (test code = 754) 11.6 fL 9.4-12 .3 NUCLEATED RED BLOOD CELLS (BEAKER) (test code = 413) 0 /100 WBC 0 -0 NEUTROPHILS RELATIVE PERCENT (BEAKER) (test code = 429) 78 % LYMPHOCYTES RELATIVE PERCENT (BEAKER) (test code = 430) 13 % MONOCYTES RELATIVE PERCENT (BEAKER) (test code = 431) 8 % EOSINOPHILS RELATIVE PERCENT (BEAKER) (test code = 432) 0 % BASOPHILS RELATIVE PERCENT (BEAKER) (test code = 437) 1 % NEUTROPHILS ABSOLUTE COUNT (BEAKER) (test code = 670) 13.19 K/ L 1.56-6.13 H LYMPHOCYTES ABSOLUTE COUNT (BEAKER) (test code = 414) 2.23 K/ L 1.18-3.74 MONOCYTES ABSOLUTE COUNT (BEAKER) (test code = 415) 1.38 K/ L 0. 24-0.36 H EOSINOPHILS ABSOLUTE COUNT (BEAKER) (test code = 416) 0.03 K/ L 0.04-0.36 L BASOPHILS ABSOLUTE COUNT (BEAKER) (test code = 417) 0.10 K/ L 0. 01-0.08 H IMMATURE GRANULOCYTES-RELATIVE PERCENT (BEAKER) (test code = 2801) 0 % 0-1 POCT-GLUCOSE [id number] 00:46:00* Test Item Value Reference Range Interpretation Comments POC-GLUCOSE METER (BEAKER) (test code = 1538) 136 mg/dL 70-110 H TESTED AT [address] [address] POCT-GLUCOSE [id number] 21:00:00* Test Item Value Reference Range Interpretation Comments POC-GLUCOSE METER (BEAKER) (test code = 1538) 133 mg/dL 70-110 H TESTED AT [address] [address] POCT-GLUCOSE [id number] 18:54:00* Test Item Value Reference Range Interpretation Comments POC-GLUCOSE METER (BEAKER) (test code = 1538) 130 mg/dL 70-110 H TESTED AT [address] [address] BASIC METABOLIC [id number] 17:53:00* Test Item Value Reference Range Interpretation Comments SODIUM (BEAKER) (test code = 381) 142 meq/L 136-145 POTASSIUM (BEAKER) (test code = 379) 4.4 meq/L 3.5-5.1 CHLORIDE (BEAKER) (test code = 382) 113 meq/L 98-107 H CO2 (BEAKER) (test code = 355) 18 meq/L 22-29 L BLOOD UREA NITROGEN (BEAKER) (test code = 354) 33 mg/dL 7-21 H CREATININE (BEAKER) (test code = 358) 2.64 mg/dL 0.57-1.25 H GLUCOSE RANDOM (BEAKER) (test code = 652) 127 mg/dL 70-105 H CALCIUM (BEAKER) (test code = 697) 8.7 mg/dL 8.4-10.2 EGFR (BEAKER) (test code = 1092) 18 mL/min/1.73 sq m ESTIMATED GFR IS NOT ACCURATE CREATININE CLEARANCE IN PREDICTING GLOMERULAR FILTRATION RATE. ESTIMATED GFR IS NOT APPLICABLE FOR DIALYSIS PATIENTS. SODIUM NA-STAT [id number] 17:19:00* Test Item Value Reference Range Interpretation Comments SODIUM (BEAKER) (test code = 381) 135 meq/L 135-148 POTASSIUM-STAT [id number] 17:19:00* Test Item Value Reference Range Interpretation Comments POTASSIUM (BEAKER) (test code = 379) 4.2 meq/L 3.6-5.5 BLOOD GAS, [id number] 17:19:00* Test Item Value Reference Range Interpretation Comments PH ARTERIAL (BEAKER) (test code = 383) 7.41 7.35-7.45 PCO2 ARTERIAL (BEAKER) (test code = 384) 33 mmHg 35-45 L PO2 ARTERIAL (BEAKER) (test code = 385) 93 mmHg 80-90 H O2 SATURATION ARTERIAL (BEAKER) (test code = 386) 97.3 % 96.0 -97.0 H HCO3 ARTERIAL (BEAKER) (test code = 388) 21 mmol/L 21-29 BASE EXCESS ARTERIAL (BEAKER) (test code = 387) -3.7 mmol/L -2.0-3 .0 L PATIENT TEMPERATURE (BEAKER) (test code = 1818) 36.7 C FIO2 (BEAKER) (test code = 1819) 36.0 % GLUCOSE-STAT [id number] 17:19:00* Test Item Value Reference Range Interpretation Comments GLUCOSE RANDOM (BEAKER) (test code = 652) 125 mg/dL 70-110 H HGB/HCT (H&H) - STAT [id number] 17:19:00* Test Item Value Reference Range Interpretation Comments HEMOGLOBIN (BEAKER) (test code = 410) 9.0 g/dL 12.0-15.0 L HEMATOCRIT (BEAKER) (test code = 411) 26.0 % 36.0-45.0 L TROPONIN [id number] 15:21:00* Test Item Value Reference Range Interpretation Comments TROPONIN I (BEAKER) (test code = 397) 2.76 ng/mL 0.00-0.03 HH Troponin I (TnI) levels must be interpreted in the context of the presenting sym ptoms and the clinical findings. Elevated TnI levels indicate myocardial damage, but are not specific for ischemic heart disease. Elevated TnI levels are seen in patients with other cardiac conditions (including myocarditis and congestive h eart failure), and slight TnI elevations occur in patients with other conditions , including sepsis, renal failure, acidosis, acute neurological disease, and per sistent tachyarrhythmia.CREATINE KINASE (CK), TOTAL AND [id number] 15:05:00* Test Item Value Reference Range Interpretation Comments CREATINE KINASE TOTAL (BEAKER) (test code = 380) 318 U/L 29-20 0 H CREATINE KINASE-MB (BEAKER) (test code = 750) 4.3 ng/mL 0.0-6.6 CREATINE KINASE-MB INDEX (BEAKER) (test code = 395) 1.4 % CK-MB Reference Range:<6.7 Normal6.7-10.0 Borderline>10.0 Abnormal [id number] 14:52:00* Test Item Value Reference Range Interpretation Comments POTASSIUM (BEAKER) (test code = 379) 4.3 meq/L 3.5-5.1 PRN - repeat glucose levels every 1 hour or as specified by insulin titration or ders until glucose level is less than 450 mg/dLCheck Serum Magnesium level 2 spenser rs after IV magnesium replacement.PRN - repeat potassium levels every 1 hour unt il glucose level is less than 450 mg/[id number] 14:52:00* Test Item Value Reference Range Interpretation Comments MAGNESIUM (BEAKER) (test code = 627) 2.2 mg/dL 1.6-2.6 PRN - repeat glucose levels every 1 hour or as specified by insulin titration or ders until glucose level is less than 450 mg/dLCheck Serum Magnesium level 2 spenser rs after IV magnesium replacement.PRN - repeat potassium levels every 1 hour unt il glucose level is less than 450 mg/[id number] 14:52:00* Test Item Value Reference Range Interpretation Comments GLUCOSE RANDOM (BEAKER) (test code = 652) 129 mg/dL 70-105 H PRN - repeat glucose levels every 1 hour or as specified by insulin titration or ders until glucose level is less than 450 mg/dLCheck Serum Magnesium level 2 sp[address] rs after IV magnesium replacement.PRN - repeat potassium levels every 1 hour unt il glucose level is less than 450 mg/dLCALCIUM, [id number] 10:38:00* Test Item Value Reference Range Interpretation Comments CALCIUM IONIZED (BEAKER) (test code = 698) 1.19 mmol/L 1.12-1.27 PH, BLOOD (BEAKER) (test code = 1810) 7.45 BLOOD GAS, [id number] 10:37:00* Test Item Value Reference Range Interpretation Comments PH ARTERIAL (BEAKER) (test code = 383) 7.46 7.35-7.45 H PCO2 ARTERIAL (BEAKER) (test code = 384) 28 mmHg 35-45 L PO2 ARTERIAL (BEAKER) (test code = 385) 88 mmHg 80-90 O2 SATURATION ARTERIAL (BEAKER) (test code = 386) 97.3 % 96.0 -97.0 H HCO3 ARTERIAL (BEAKER) (test code = 388) 19 mmol/L 21-29 L BASE EXCESS ARTERIAL (BEAKER) (test code = 387) -3.7 mmol/L -2.0-3 .0 L PATIENT TEMPERATURE (BEAKER) (test code = 1818) 36.7 C FIO2 (BEAKER) (test code = 1819) 40.0 % GLUCOSE-STAT [id number] 10:37:00* Test Item Value Reference Range Interpretation Comments GLUCOSE RANDOM (BEAKER) (test code = 652) 146 mg/dL 70-110 H HGB/HCT (H&H) - STAT [id number] 10:37:00* Test Item Value Reference Range Interpretation Comments HEMOGLOBIN (BEAKER) (test code = 410) 10.0 g/dL 12.0-15.0 L HEMATOCRIT (BEAKER) (test code = 411) 29.0 % 36.0-45.0 L SODIUM NA-STAT [id number] 10:36:00* Test Item Value Reference Range Interpretation Comments SODIUM (BEAKER) (test code = 381) 136 meq/L 135-148 POTASSIUM-STAT [id number] 10:36:00* Test Item Value Reference Range Interpretation Comments POTASSIUM (BEAKER) (test code = 379) 4.4 meq/L 3.6-5.5 [id number] 09:17:00* Test Item Value Reference Range Interpretation Comments MAGNESIUM (BEAKER) (test code = 627) 2.4 mg/dL 1.6-2.6 Check Serum Magnesium level 2 hours after IV magnesium replacement.CALCIUM, [id number] 08:57:00* Test Item Value Reference Range Interpretation Comments CALCIUM IONIZED (BEAKER) (test code = 698) 1.16 mmol/L 1.12-1.27 PH, BLOOD (BEAKER) (test code = 1810) 7.43 BLOOD GAS, [id number] 08:57:00* Test Item Value Reference Range Interpretation Comments PH ARTERIAL (BEAKER) (test code = 383) 7.44 7.35-7.45 PCO2 ARTERIAL (BEAKER) (test code = 384) 29 mmHg 35-45 L PO2 ARTERIAL (BEAKER) (test code = 385) 108 mmHg 80-90 H O2 SATURATION ARTERIAL (BEAKER) (test code = 386) 98.2 % 96.0 -97.0 H HCO3 ARTERIAL (BEAKER) (test code = 388) 19 mmol/L 21-29 L BASE EXCESS ARTERIAL (BEAKER) (test code = 387) -4.1 mmol/L -2.0-3 .0 L PATIENT TEMPERATURE (BEAKER) (test code = 1818) 36.7 C FIO2 (BEAKER) (test code = 1819) 40.0 % GLUCOSE-STAT [id number] 08:57:00* Test Item Value Reference Range Interpretation Comments GLUCOSE RANDOM (BEAKER) (test code = 652) 152 mg/dL 70-110 H HGB/HCT (H&H) - STAT [id number] 08:57:00* Test Item Value Reference Range Interpretation Comments HEMOGLOBIN (BEAKER) (test code = 410) 9.3 g/dL 12.0-15.0 L HEMATOCRIT (BEAKER) (test code = 411) 27.0 % 36.0-45.0 L SODIUM NA-STAT [id number] 08:54:00* Test Item Value Reference Range Interpretation Comments SODIUM (BEAKER) (test code = 381) 135 meq/L 135-148 POTASSIUM-STAT [id number] 08:54:00* Test Item Value Reference Range Interpretation Comments POTASSIUM (BEAKER) (test code = 379) 4.5 meq/L 3.6-5.5 TROPONIN [id number] 08:40:00* Test Item Value Reference Range Interpretation Comments TROPONIN I (BEAKER) (test code = 397) 3.78 ng/mL 0.00-0.03 HH Troponin I (TnI) levels must be interpreted in the context of the presenting sym ptoms and the clinical findings. Elevated TnI levels indicate myocardial damage, but are not specific for ischemic heart disease. Elevated TnI levels are seen in patients with other cardiac conditions (including myocarditis and congestive h eart failure), and slight TnI elevations occur in patients with other conditions , including sepsis, renal failure, acidosis, acute neurological disease, and per sistent tachyarrhythmia.CREATINE KINASE (CK), TOTAL AND [id number] 07:49:00* Test Item Value Reference Range Interpretation Comments CREATINE KINASE TOTAL (BEAKER) (test code = 380) 289 U/L 29-20 0 H CREATINE KINASE-MB (BEAKER) (test code = 750) 5.5 ng/mL 0.0-6.6 CREATINE KINASE-MB INDEX (BEAKER) (test code = 395) 1.9 % CK-MB Reference Range:<6.7 Normal6.7-10.0 Borderline>10.0 Abnormal LACTIC ACID, ARTERIAL, WHOLE [id number] 07:46:00* Test Item Value Reference Range Interpretation Comments LACTATE BLOOD ARTERIAL (2) (BEAKER) (test code = 2874) 1.1 mmol/L 0.5-2.2 Effective 11/18/2015: Units/Reference Range ChangeNew: 0.5-2.2 mmol/L Previous: 5 -20 mg/dLBLOOD GAS, [id number] 07:15:00* Test Item Value Reference Range Interpretation Comments PH ARTERIAL (BEAKER) (test code = 383) 7.38 7.35-7.45 PCO2 ARTERIAL (BEAKER) (test code = 384) 35 mmHg 35-45 PO2 ARTERIAL (BEAKER) (test code = 385) 107 mmHg 80-90 H O2 SATURATION ARTERIAL (BEAKER) (test code = 386) 97.8 % 96.0 -97.0 H HCO3 ARTERIAL (BEAKER) (test code = 388) 20 mmol/L 21-29 L BASE EXCESS ARTERIAL (BEAKER) (test code = 387) -4.4 mmol/L -2.0-3 .0 L PATIENT TEMPERATURE (BEAKER) (test code = 1818) 37.0 C FIO2 (BEAKER) (test code = 1819) 100.0 % POCT-GLUCOSE [id number] 06:51:00* Test Item Value Reference Range Interpretation Comments POC-GLUCOSE METER (BEAKER) (test code = 1538) 181 mg/dL 70-110 H TESTED AT [facility] [address] [facility] [address] TROPONIN [id number] 06:42:00* Test Item Value Reference Range Interpretation Comments TROPONIN I (BEAKER) (test code = 397) 3.98 ng/mL 0.00-0.03 HH Troponin I (TnI) levels must be interpreted in the context of the presenting sym ptoms and the clinical findings. Elevated TnI levels indicate myocardial damage, but are not specific for ischemic heart disease. Elevated TnI levels are seen in patients with other cardiac conditions (including myocarditis and congestive h eart failure), and slight TnI elevations occur in patients with other conditions , including sepsis, renal failure, acidosis, acute neurological disease, and per sistent tachyarrhythmia.BASIC METABOLIC [id number] 06:23:00* Test Item Value Reference Range Interpretation Comments SODIUM (BEAKER) (test code = 381) 142 meq/L 136-145 POTASSIUM (BEAKER) (test code = 379) 4.6 meq/L 3.5-5.1 CHLORIDE (BEAKER) (test code = 382) 114 meq/L 98-107 H CO2 (BEAKER) (test code = 355) 19 meq/L 22-29 L BLOOD UREA NITROGEN (BEAKER) (test code = 354) 25 mg/dL 7-21 H CREATININE (BEAKER) (test code = 358) 2.30 mg/dL 0.57-1.25 H GLUCOSE RANDOM (BEAKER) (test code = 652) 174 mg/dL 70-105 H CALCIUM (BEAKER) (test code = 697) 8.5 mg/dL 8.4-10.2 EGFR (BEAKER) (test code = 1092) 21 mL/min/1.73 sq m ESTIMATED GFR IS NOT ACCURATE CREATININE CLEARANCE IN PREDICTING GLOMERULAR FILTRATION RATE. ESTIMATED GFR IS NOT APPLICABLE FOR DIALYSIS PATIENTS. CREATINE KINASE (CK), TOTAL AND [id number] 05:22:00* Test Item Value Reference Range Interpretation Comments CREATINE KINASE TOTAL (BEAKER) (test code = 380) 301 U/L 29-20 0 H CREATINE KINASE-MB (BEAKER) (test code = 750) 6.9 ng/mL 0.0-6.6 H CREATINE KINASE-MB INDEX (BEAKER) (test code = 395) 2.3 % CK-MB Reference Range:<6.7 Normal6.7-10.0 Borderline>10.0 Abnormal [id number] 05:19:00* Test Item Value Reference Range Interpretation Comments MAGNESIUM (BEAKER) (test code = 627) 2.2 mg/dL 1.6-2.6 CBC W/PLT COUNT & AUTO [id number] 05:15:00* Test Item Value Reference Range Interpretation Comments WHITE BLOOD CELL COUNT (BEAKER) (test code = 775) 13.4 K/ L 3.5- 10.5 H RED BLOOD CELL COUNT (BEAKER) (test code = 761) 3.21 M/ L 3.93-5 .22 L HEMOGLOBIN (BEAKER) (test code = 410) 9.2 GM/DL 11.2-15.7 L HEMATOCRIT (BEAKER) (test code = 411) 28.7 % 34.1-44.9 L MEAN CORPUSCULAR VOLUME (BEAKER) (test code = 753) 89.4 fL 79. 4-94.8 MEAN CORPUSCULAR HEMOGLOBIN (BEAKER) (test code = 751) 28.7 pg 25.6-32.2 MEAN CORPUSCULAR HEMOGLOBIN CONC (BEAKER) (test code = 752) 32.1 GM/DL 32.2-35.5 L RED CELL DISTRIBUTION WIDTH (BEAKER) (test code = 412) 14.0 % 11.7-14.4 PLATELET COUNT (BEAKER) (test code = 756) 150 K/CU MM 150-450 MEAN PLATELET VOLUME (BEAKER) (test code = 754) 12.0 fL 9.4-12 .3 NUCLEATED RED BLOOD CELLS (BEAKER) (test code = 413) 0 /100 WBC 0 -0 NEUTROPHILS RELATIVE PERCENT (BEAKER) (test code = 429) 83 % LYMPHOCYTES RELATIVE PERCENT (BEAKER) (test code = 430) 11 % MONOCYTES RELATIVE PERCENT (BEAKER) (test code = 431) 6 % EOSINOPHILS RELATIVE PERCENT (BEAKER) (test code = 432) 0 % BASOPHILS RELATIVE PERCENT (BEAKER) (test code = 437) 1 % NEUTROPHILS ABSOLUTE COUNT (BEAKER) (test code = 670) 11.08 K/ L 1.56-6.13 H LYMPHOCYTES ABSOLUTE COUNT (BEAKER) (test code = 414) 1.41 K/ L 1.18-3.74 MONOCYTES ABSOLUTE COUNT (BEAKER) (test code = 415) 0.78 K/ L 0. 24-0.36 H EOSINOPHILS ABSOLUTE COUNT (BEAKER) (test code = 416) 0.01 K/ L 0.04-0.36 L BASOPHILS ABSOLUTE COUNT (BEAKER) (test code = 417) 0.08 K/ L 0. 01-0.08 IMMATURE GRANULOCYTES-RELATIVE PERCENT (BEAKER) (test code = 2801) 0 % 0-1 RAD, CHEST, 1 VIEW, NON [id number] 04:46:00Reason for exam:-> intubated/CTShould this be performed at the bedside?->YesFINAL REPORT [...] when accounting for patient rotation. Stable surgical change s.Additional findings: None. Signed: JR Bates Robert [place] Verified Date/Time: 06/17/2017 04:46:27 Reading Location: [facility] C013Y CT Body Reading R oom IUM, [id number] 04:25:00* Test Item Value Reference Range Interpretation Comments CALCIUM IONIZED (BEAKER) (test code = 698) 1.20 mmol/L 1.12-1.27 PH, BLOOD (BEAKER) (test code = 1810) 7.35 POCT-GLUCOSE [id number] 04:15:00* Test Item Value Reference Range Interpretation Comments POC-GLUCOSE METER (BEAKER) (test code = 1538) 181 mg/dL 70-110 H TESTED AT [facility] [address] [facility] [address] POCT-GLUCOSE [id number] 03:16:00* Test Item Value Reference Range Interpretation Comments POC-GLUCOSE METER (BEAKER) (test code = 1538) 187 mg/dL 70-110 H TESTED AT [facility] [address] [facility] [address] POCT-GLUCOSE [id number] 03:16:00* Test Item Value Reference Range Interpretation Comments POC-GLUCOSE METER (BEAKER) (test code = 1538) 151 mg/dL 70-110 H TESTED AT [place] [id number] [facility] [address] POCT-GLUCOSE [id number] 01:16:00* Test Item Value Reference Range Interpretation Comments POC-GLUCOSE METER (BEAKER) (test code = 1538) 187 mg/dL 70-110 H TESTED AT [place] [id number] [facility] [address] TROPONIN [id number] 23:43:00* Test Item Value Reference Range Interpretation Comments TROPONIN I (BEAKER) (test code = 397) 4.13 ng/mL 0.00-0.03 HH Troponin I (TnI) levels must be interpreted in the context of the presenting sym ptoms and the clinical findings. Elevated TnI levels indicate myocardial damage, but are not specific for ischemic heart disease. Elevated TnI levels are seen in patients with other cardiac conditions (including myocarditis and congestive h eart failure), and slight TnI elevations occur in patients with other conditions , including sepsis, renal failure, acidosis, acute neurological disease, and per sistent tachyarrhythmia.CREATINE KINASE (CK), TOTAL AND [id number] 23:33:00* Test Item Value Reference Range Interpretation Comments CREATINE KINASE TOTAL (BEAKER) (test code = 380) 330 U/L 29-20 0 H CREATINE KINASE-MB (BEAKER) (test code = 750) 10.7 ng/mL 0.0-6.6 H CREATINE KINASE-MB INDEX (BEAKER) (test code = 395) 3.2 % CK-MB Reference Range:<6.7 Normal6.7-10.0 Borderline>10.0 Abnormal LACTIC ACID, ARTERIAL, WHOLE [id number] 23:22:00* Test Item Value Reference Range Interpretation Comments LACTATE BLOOD ARTERIAL (2) (BEAKER) (test code = 2874) 1.7 mmol/L 0.5-2.2 Effective 11/18/2015: Units/Reference Range ChangeNew: 0.5-2.2 mmol/L Previous: 5 -20 mg/dLPOCT-GLUCOSE [id number] 22:20:00* Test Item Value Reference Range Interpretation Comments POC-GLUCOSE METER (BEAKER) (test code = 1538) 194 mg/dL 70-110 H TESTED AT [facility] [address] [facility] [address] POCT-GLUCOSE [id number] 22:16:00* Test Item Value Reference Range Interpretation Comments POC-GLUCOSE METER (BEAKER) (test code = 1538) 200 mg/dL 70-110 H TESTED AT [place] [id number] [facility] [address] BLOOD GAS, [id number] 21:16:00* Test Item Value Reference Range Interpretation Comments PH ARTERIAL (BEAKER) (test code = 383) 7.34 7.35-7.45 L PCO2 ARTERIAL (BEAKER) (test code = 384) 38 mmHg 35-45 PO2 ARTERIAL (BEAKER) (test code = 385) 115 mmHg 80-90 H O2 SATURATION ARTERIAL (BEAKER) (test code = 386) 97.9 % 96.0 -97.0 H HCO3 ARTERIAL (BEAKER) (test code = 388) 20 mmol/L 21-29 L BASE EXCESS ARTERIAL (BEAKER) (test code = 387) -4.9 mmol/L -2.0-3 .0 L PATIENT TEMPERATURE (BEAKER) (test code = 1818) 37.6 C FIO2 (BEAKER) (test code = 1819) 40.0 % GLUCOSE-STAT [id number] 21:16:00* Test Item Value Reference Range Interpretation Comments GLUCOSE RANDOM (BEAKER) (test code = 652) 199 mg/dL 70-110 H HGB/HCT (H&H) - STAT [id number] 21:16:00* Test Item Value Reference Range Interpretation Comments HEMOGLOBIN (BEAKER) (test code = 410) 10.1 g/dL 12.0-15.0 L HEMATOCRIT (BEAKER) (test code = 411) 30.0 % 36.0-45.0 L SODIUM NA-STAT [id number] 21:15:00* Test Item Value Reference Range Interpretation Comments SODIUM (BEAKER) (test code = 381) 135 meq/L 135-148 POTASSIUM-STAT [id number] 21:15:00* Test Item Value Reference Range Interpretation Comments POTASSIUM (BEAKER) (test code = 379) 4.3 meq/L 3.6-5.5 CALCIUM, [id number] 21:14:00* Test Item Value Reference Range Interpretation Comments CALCIUM IONIZED (BEAKER) (test code = 698) 1.16 mmol/L 1.12-1.27 PH, BLOOD (BEAKER) (test code = 1810) 7.35 [id number] 19:33:00* Test Item Value Reference Range Interpretation Comments MAGNESIUM (BEAKER) (test code = 627) 2.1 mg/dL 1.6-2.6 Check Serum Magnesium level 2 hours after IV magnesium replacement.CALCIUM, [id number] 19:04:00* Test Item Value Reference Range Interpretation Comments CALCIUM IONIZED (BEAKER) (test code = 698) 1.19 mmol/L 1.12-1.27 PH, BLOOD (BEAKER) (test code = 1810) 7.32 SODIUM NA-STAT [id number] 19:04:00* Test Item Value Reference Range Interpretation Comments SODIUM (BEAKER) (test code = 381) 136 meq/L 135-148 POTASSIUM-STAT [id number] 19:04:00* Test Item Value Reference Range Interpretation Comments POTASSIUM (BEAKER) (test code = 379) 4.4 meq/L 3.6-5.5 BLOOD GAS, [id number] 19:04:00* Test Item Value Reference Range Interpretation Comments PH ARTERIAL (BEAKER) (test code = 383) 7.32 7.35-7.45 L PCO2 ARTERIAL (BEAKER) (test code = 384) 38 mmHg 35-45 PO2 ARTERIAL (BEAKER) (test code = 385) 190 mmHg 80-90 H O2 SATURATION ARTERIAL (BEAKER) (test code = 386) 99.2 % 96.0 -97.0 H HCO3 ARTERIAL (BEAKER) (test code = 388) 19 mmol/L 21-29 L BASE EXCESS ARTERIAL (BEAKER) (test code = 387) -6.3 mmol/L -2.0-3 .0 L PATIENT TEMPERATURE (BEAKER) (test code = 1818) 36.8 C FIO2 (BEAKER) (test code = 1819) 60.0 % GLUCOSE-STAT [id number] 19:04:00* Test Item Value Reference Range Interpretation Comments GLUCOSE RANDOM (BEAKER) (test code = 652) 226 mg/dL 70-110 H HGB/HCT (H&H) - STAT [id number] 19:04:00* Test Item Value Reference Range Interpretation Comments HEMOGLOBIN (BEAKER) (test code = 410) 10.8 g/dL 12.0-15.0 L HEMATOCRIT (BEAKER) (test code = 411) 32.0 % 36.0-45.0 L THROMBOELASTOGRAPH (TEG)[id number] 17:49:00* Test Item Value Reference Range Interpretation Comments TEG ACTIVATED CLOTTING TIME (BEAKER) (test code = 1407) 5.8 minutes 4.0-7.0 TEG FIBRINOGEN ACTIVITY (BEAKER) (test code = 1408) 68.7 degrees 61 .0-73.0 TEG PLT. AGGREGATION (BEAKER) (test code = 1409) 63.8 MM 55.0- 65.0 TEG FIBRINOLYSIS (BEAKER) (test code = 1410) 0.0 % 0.0-5.0 TGH ACTIVATED CLOTTING TIME (BEAKER) (test code = 1411) 5.4 minutes 4.0-7.0 TGH FIBRINOGEN ACTIVITY (BEAKER) (test code = 1412) 70.6 degrees 61 .0-73.0 TGH PLT. AGGREGATION (BEAKER) (test code = 1413) 60.2 MM 55.0- 65.0 TGH FIBRINOLYSIS (BEAKER) (test code = 1414) 0.0 % 0.0-5.0 TROPONIN [id number] 17:27:00* Test Item Value Reference Range Interpretation Comments TROPONIN I (BEAKER) (test code = 397) 2.20 ng/mL 0.00-0.03 Troponin I (TnI) levels must be interpreted in the context of the presenting sym ptoms and the clinical findings. Elevated TnI levels indicate myocardial damage, but are not specific for ischemic heart disease. Elevated TnI levels are seen in patients with other cardiac conditions (including myocarditis and congestive h eart failure), and slight TnI elevations occur in patients with other conditions , including sepsis, renal failure, acidosis, acute neurological disease, and per sistent tachyarrhythmia.BASIC METABOLIC [id number] 17:24:00* Test Item Value Reference Range Interpretation Comments SODIUM (BEAKER) (test code = 381) 141 meq/L 136-145 POTASSIUM (BEAKER) (test code = 379) 4.7 meq/L 3.5-5.1 CHLORIDE (BEAKER) (test code = 382) 114 meq/L 98-107 H CO2 (BEAKER) (test code = 355) 20 meq/L 22-29 L BLOOD UREA NITROGEN (BEAKER) (test code = 354) 21 mg/dL 7-21 CREATININE (BEAKER) (test code = 358) 1.59 mg/dL 0.57-1.25 H GLUCOSE RANDOM (BEAKER) (test code = 652) 243 mg/dL 70-105 H CALCIUM (BEAKER) (test code = 697) 7.2 mg/dL 8.4-10.2 L EGFR (BEAKER) (test code = 1092) 33 mL/min/1.73 sq m ESTIMATED GFR IS NOT ACCURATE CREATININE CLEARANCE IN PREDICTING GLOMERULAR FILTRATION RATE. ESTIMATED GFR IS NOT APPLICABLE FOR DIALYSIS PATIENTS. CREATINE KINASE (CK), TOTAL AND [id number] 17:15:00* Test Item Value Reference Range Interpretation Comments CREATINE KINASE TOTAL (BEAKER) (test code = 380) 363 U/L 29-20 0 H CREATINE KINASE-MB (BEAKER) (test code = 750) 13.9 ng/mL 0.0-6.6 H CREATINE KINASE-MB INDEX (BEAKER) (test code = 395) 3.8 % CK-MB Reference Range:<6.7 Normal6.7-10.0 Borderline>10.0 Abnormal [id number] 17:13:00* Test Item Value Reference Range Interpretation Comments POTASSIUM (BEAKER) (test code = 379) 4.7 meq/L 3.5-5.1 [id number] 17:13:00* Test Item Value Reference Range Interpretation Comments MAGNESIUM (BEAKER) (test code = 627) 1.6 mg/dL 1.6-2.6 [id number] 17:13:00* Test Item Value Reference Range Interpretation Comments PHOSPHORUS (BEAKER) (test code = 604) 3.6 mg/dL 2.3-4.7 [id number] 17:13:00* Test Item Value Reference Range Interpretation Comments GLUCOSE RANDOM (BEAKER) (test code = 652) 243 mg/dL 70-105 H LACTIC ACID, ARTERIAL, WHOLE [id number] 17:07:00* Test Item Value Reference Range Interpretation Comments LACTATE BLOOD ARTERIAL (2) (BEAKER) (test code = 2874) 2.0 mmol/L 0.5-2.2 Effective 11/18/2015: Units/Reference Range ChangeNew: 0.5-2.2 mmol/L Previous: 5 -20 mg/[id number] 16:46:00* Test Item Value Reference Range Interpretation Comments FIBRINOGEN LEVEL (BEAKER) (test code = 658) 208 mg/dl 225-434 L [id number] 16:46:00* Test Item Value Reference Range Interpretation Comments PARTIAL THROMBOPLASTIN TIME (BEAKER) (test code = 760) 43.4 seconds 22.5-36.0 H PROTHROMBIN TIME/[id number] 16:45:00* Test Item Value Reference Range Interpretation Comments PROTIME (BEAKER) (test code = 759) 17.3 seconds 11.7-14.7 H INR (BEAKER) (test code = 370) 1.4 <=5.9 RECOMMENDED COUMADIN/WARFARIN INR THERAPY RANGESSTANDARD DOSE: 2.0 - 3.0 Inclu esvin: PROPHYLAXIS for venous thrombosis, systemic embolization; TREATMENT for brandie ous thrombosis and/or pulmonary embolus.HIGH RISK: Target INR is 2.5-3.5 for pat ients with mechanical heart valves.CBC W/PLT COUNT & AUTO [id number] 16:39:00* Test Item Value Reference Range Interpretation Comments WHITE BLOOD CELL COUNT (BEAKER) (test code = 775) 18.4 K/ L 3.5- 10.5 H RED BLOOD CELL COUNT (BEAKER) (test code = 761) 3.28 M/ L 3.93-5 .22 L HEMOGLOBIN (BEAKER) (test code = 410) 9.4 GM/DL 11.2-15.7 L HEMATOCRIT (BEAKER) (test code = 411) 29.5 % 34.1-44.9 L MEAN CORPUSCULAR VOLUME (BEAKER) (test code = 753) 89.9 fL 79. 4-94.8 MEAN CORPUSCULAR HEMOGLOBIN (BEAKER) (test code = 751) 28.7 pg 25.6-32.2 MEAN CORPUSCULAR HEMOGLOBIN CONC (BEAKER) (test code = 752) 31.9 GM/DL 32.2-35.5 L RED CELL DISTRIBUTION WIDTH (BEAKER) (test code = 412) 13.7 % 11.7-14.4 PLATELET COUNT (BEAKER) (test code = 756) 136 K/CU MM 150-450 L MEAN PLATELET VOLUME (BEAKER) (test code = 754) 11.9 fL 9.4-12 .3 NUCLEATED RED BLOOD CELLS (BEAKER) (test code = 413) 0 /100 WBC 0 -0 NEUTROPHILS RELATIVE PERCENT (BEAKER) (test code = 429) 73 % LYMPHOCYTES RELATIVE PERCENT (BEAKER) (test code = 430) 17 % MONOCYTES RELATIVE PERCENT (BEAKER) (test code = 431) 6 % EOSINOPHILS RELATIVE PERCENT (BEAKER) (test code = 432) 3 % BASOPHILS RELATIVE PERCENT (BEAKER) (test code = 437) 1 % NEUTROPHILS ABSOLUTE COUNT (BEAKER) (test code = 670) 13.38 K/ L 1.56-6.13 H LYMPHOCYTES ABSOLUTE COUNT (BEAKER) (test code = 414) 3.21 K/ L 1.18-3.74 MONOCYTES ABSOLUTE COUNT (BEAKER) (test code = 415) 1.16 K/ L 0. 24-0.36 H EOSINOPHILS ABSOLUTE COUNT (BEAKER) (test code = 416) 0.46 K/ L 0.04-0.36 H BASOPHILS ABSOLUTE COUNT (BEAKER) (test code = 417) 0.12 K/ L 0. 01-0.08 H IMMATURE GRANULOCYTES-RELATIVE PERCENT (BEAKER) (test code = 2801) 1 % 0-1 RAD, CHEST, 1 VIEW, NON [id number] 16:19:00Reason for exam:->HypoxiaShould this be performed at [...] [place] Verified Date/Time: 06/16/2017 16:19:10 Reading Location: [facility] Radiology Reading Room IUM, [id number] 16:11:00* Test Item Value Reference Range Interpretation Comments CALCIUM IONIZED (BEAKER) (test code = 698) 1.03 mmol/L 1.12-1.27 L PH, BLOOD (BEAKER) (test code = 1810) 7.40 BLOOD GAS, [id number] 16:11:00* Test Item Value Reference Range Interpretation Comments PH ARTERIAL (BEAKER) (test code = 383) 7.42 7.35-7.45 PCO2 ARTERIAL (BEAKER) (test code = 384) 31 mmHg 35-45 L PO2 ARTERIAL (BEAKER) (test code = 385) 108 mmHg 80-90 H O2 SATURATION ARTERIAL (BEAKER) (test code = 386) 98.2 % 96.0 -97.0 H HCO3 ARTERIAL (BEAKER) (test code = 388) 20 mmol/L 21-29 L BASE EXCESS ARTERIAL (BEAKER) (test code = 387) -4.5 mmol/L -2.0-3 .0 L PATIENT TEMPERATURE (BEAKER) (test code = 1818) 35.7 C FIO2 (BEAKER) (test code = 1819) 60.0 % GLUCOSE-STAT [id number] 16:11:00* Test Item Value Reference Range Interpretation Comments GLUCOSE RANDOM (BEAKER) (test code = 652) 235 mg/dL 70-110 H HGB/HCT (H&H) - STAT [id number] 16:11:00* Test Item Value Reference Range Interpretation Comments HEMOGLOBIN (BEAKER) (test code = 410) 9.9 g/dL 12.0-15.0 L HEMATOCRIT (BEAKER) (test code = 411) 29.0 % 36.0-45.0 L SODIUM NA-STAT [id number] 16:10:00* Test Item Value Reference Range Interpretation Comments SODIUM (BEAKER) (test code = 381) 135 meq/L 135-148 POTASSIUM-STAT [id number] 16:10:00* Test Item Value Reference Range Interpretation Comments POTASSIUM (BEAKER) (test code = 379) 4.5 meq/L 3.6-5.5 OXYGEN SATURATION, [id number] 16:09:00* Test Item Value Reference Range Interpretation Comments O2 SATURATION (MEASURED) (BEAKER) (test code = 1455) 52.9 % BLOOD GAS, [id number] 14:56:00* Test Item Value Reference Range Interpretation Comments PH ARTERIAL (BEAKER) (test code = 383) 7.34 7.35-7.45 L PCO2 ARTERIAL (BEAKER) (test code = 384) 42 mmHg 35-45 PO2 ARTERIAL (BEAKER) (test code = 385) 77 mmHg 80-90 L O2 SATURATION ARTERIAL (BEAKER) (test code = 386) 95.4 % 96.0 -97.0 L HCO3 ARTERIAL (BEAKER) (test code = 388) 23 mmol/L 21-29 BASE EXCESS ARTERIAL (BEAKER) (test code = 387) -3.2 mmol/L -2.0-3 .0 L PATIENT TEMPERATURE (BEAKER) (test code = 1818) 36.0 C FIO2 (BEAKER) (test code = 1819) 100.0 % GLUCOSE-STAT [id number] 14:56:00* Test Item Value Reference Range Interpretation Comments GLUCOSE RANDOM (BEAKER) (test code = 652) 190 mg/dL 70-110 H HGB/HCT (H&H) - STAT [id number] 14:56:00* Test Item Value Reference Range Interpretation Comments HEMOGLOBIN (BEAKER) (test code = 410) 9.3 g/dL 12.0-15.0 L HEMATOCRIT (BEAKER) (test code = 411) 27.0 % 36.0-45.0 L SODIUM NA-STAT [id number] 14:55:00* Test Item Value Reference Range Interpretation Comments SODIUM (BEAKER) (test code = 381) 135 meq/L 135-148 POTASSIUM-STAT [id number] 14:55:00* Test Item Value Reference Range Interpretation Comments POTASSIUM (BEAKER) (test code = 379) 4.4 meq/L 3.6-5.5 [id number] 14:22:00* Test Item Value Reference Range Interpretation Comments ACTIVATED CLOTTING TIME (BEAKER) (test code = 441) 775 sec TESTED AT [place] [address] [id number] 14:22:00* Test Item Value Reference Range Interpretation Comments ACTIVATED CLOTTING TIME (BEAKER) (test code = 441) 290 sec TESTED AT [place] [address] [id number] 14:22:00* Test Item Value Reference Range Interpretation Comments ACTIVATED CLOTTING TIME (BEAKER) (test code = 441) 307 sec TESTED AT [place] [address] [id number] 14:22:00* Test Item Value Reference Range Interpretation Comments ACTIVATED CLOTTING TIME (BEAKER) (test code = 441) 461 sec TESTED AT [place] [address] [id number] 14:22:00* Test Item Value Reference Range Interpretation Comments ACTIVATED CLOTTING TIME (BEAKER) (test code = 441) 356 sec TESTED AT [place] [address] [id number] 14:22:00* Test Item Value Reference Range Interpretation Comments ACTIVATED CLOTTING TIME (BEAKER) (test code = 441) 367 sec TESTED AT [place] [address] [id number] 14:22:00* Test Item Value Reference Range Interpretation Comments ACTIVATED CLOTTING TIME (BEAKER) (test code = 441) 472 sec TESTED AT [place] [address] [id number] 14:22:00* Test Item Value Reference Range Interpretation Comments ACTIVATED CLOTTING TIME (BEAKER) (test code = 441) 401 sec TESTED AT [address] [place] [address] [id number] 14:22:00* Test Item Value Reference Range Interpretation Comments ACTIVATED CLOTTING TIME (BEAKER) (test code = 441) 384 sec TESTED AT [facility] [address] [facility] [address] SODIUM NA-STAT [id number] 14:15:00* Test Item Value Reference Range Interpretation Comments SODIUM (BEAKER) (test code = 381) 135 meq/L 135-148 POTASSIUM-STAT [id number] 14:15:00* Test Item Value Reference Range Interpretation Comments POTASSIUM (BEAKER) (test code = 379) 4.1 meq/L 3.6-5.5 BLOOD GAS, [id number] 14:15:00* Test Item Value Reference Range Interpretation Comments PH ARTERIAL (BEAKER) (test code = 383) 7.30 7.35-7.45 L PCO2 ARTERIAL (BEAKER) (test code = 384) 41 mmHg 35-45 PO2 ARTERIAL (BEAKER) (test code = 385) 95 mmHg 80-90 H O2 SATURATION ARTERIAL (BEAKER) (test code = 386) 97.4 % 96.0 -97.0 H HCO3 ARTERIAL (BEAKER) (test code = 388) 21 mmol/L 21-29 BASE EXCESS ARTERIAL (BEAKER) (test code = 387) -6.2 mmol/L -2.0-3 .0 L PATIENT TEMPERATURE (BEAKER) (test code = 1818) 34.0 C FIO2 (BEAKER) (test code = 1819) 100.0 % GLUCOSE-STAT [id number] 14:15:00* Test Item Value Reference Range Interpretation Comments GLUCOSE RANDOM (BEAKER) (test code = 652) 177 mg/dL 70-110 H HGB/HCT (H&H) - STAT [id number] 14:15:00* Test Item Value Reference Range Interpretation Comments HEMOGLOBIN (BEAKER) (test code = 410) 9.0 g/dL 12.0-15.0 L HEMATOCRIT (BEAKER) (test code = 411) 26.0 % 36.0-45.0 L SODIUM NA-STAT [id number] 13:44:00* Test Item Value Reference Range Interpretation Comments SODIUM (BEAKER) (test code = 381) 136 meq/L 135-148 POTASSIUM-STAT [id number] 13:44:00* Test Item Value Reference Range Interpretation Comments POTASSIUM (BEAKER) (test code = 379) 3.9 meq/L 3.6-5.5 BLOOD GAS, [id number] 13:44:00* Test Item Value Reference Range Interpretation Comments PH ARTERIAL (BEAKER) (test code = 383) 7.28 7.35-7.45 L PCO2 ARTERIAL (BEAKER) (test code = 384) 42 mmHg 35-45 PO2 ARTERIAL (BEAKER) (test code = 385) 354 mmHg 80-90 H O2 SATURATION ARTERIAL (BEAKER) (test code = 386) 99.7 % 96.0 -97.0 H HCO3 ARTERIAL (BEAKER) (test code = 388) 20 mmol/L 21-29 L BASE EXCESS ARTERIAL (BEAKER) (test code = 387) -7.1 mmol/L -2.0-3 .0 L PATIENT TEMPERATURE (BEAKER) (test code = 1818) 34.0 C FIO2 (BEAKER) (test code = 1819) 100.0 % GLUCOSE-STAT [id number] 13:44:00* Test Item Value Reference Range Interpretation Comments GLUCOSE RANDOM (BEAKER) (test code = 652) 194 mg/dL 70-110 H HGB/HCT (H&H) - STAT [id number] 13:44:00* Test Item Value Reference Range Interpretation Comments HEMOGLOBIN (BEAKER) (test code = 410) 8.8 g/dL 12.0-15.0 L HEMATOCRIT (BEAKER) (test code = 411) 26.0 % 36.0-45.0 L CALCIUM, [id number] 13:44:00* Test Item Value Reference Range Interpretation Comments CALCIUM IONIZED (BEAKER) (test code = 698) 1.08 mmol/L 1.12-1.27 L PH, BLOOD (BEAKER) (test code = 1810) 7.24 BLOOD GAS, [id number] 12:33:00* Test Item Value Reference Range Interpretation Comments PH ARTERIAL (BEAKER) (test code = 383) 7.33 7.35-7.45 L PCO2 ARTERIAL (BEAKER) (test code = 384) 40 mmHg 35-45 PO2 ARTERIAL (BEAKER) (test code = 385) 238 mmHg 80-90 H O2 SATURATION ARTERIAL (BEAKER) (test code = 386) 99.5 % 96.0 -97.0 H HCO3 ARTERIAL (BEAKER) (test code = 388) 21 mmol/L 21-29 BASE EXCESS ARTERIAL (BEAKER) (test code = 387) -5.0 mmol/L -2.0-3 .0 L PATIENT TEMPERATURE (BEAKER) (test code = 1818) 34.2 C FIO2 (BEAKER) (test code = 1819) 100.0 % GLUCOSE-STAT [id number] 12:33:00* Test Item Value Reference Range Interpretation Comments GLUCOSE RANDOM (BEAKER) (test code = 652) 198 mg/dL 70-110 H HGB/HCT (H&H) - STAT [id number] 12:33:00* Test Item Value Reference Range Interpretation Comments HEMOGLOBIN (BEAKER) (test code = 410) 8.9 g/dL 12.0-15.0 L HEMATOCRIT (BEAKER) (test code = 411) 26.0 % 36.0-45.0 L CALCIUM, [id number] 12:33:00* Test Item Value Reference Range Interpretation Comments CALCIUM IONIZED (BEAKER) (test code = 698) 0.99 mmol/L 1.12-1.27 L PH, BLOOD (BEAKER) (test code = 1810) 7.33 SODIUM NA-STAT [id number] 12:31:00* Test Item Value Reference Range Interpretation Comments SODIUM (BEAKER) (test code = 381) 135 meq/L 135-148 POTASSIUM-STAT [id number] 12:31:00* Test Item Value Reference Range Interpretation Comments POTASSIUM (BEAKER) (test code = 379) 3.8 meq/L 3.6-5.5 URINE [id number] 12:10:00* Test Item Value Reference Range Interpretation Comments CULTURE (BEAKER) (test code = 1095) Amikacin (test code = 1) S Ampicillin + Sulbactam (test code = 6) S Aztreonam (test code = 32) S Cefepime (test code = 51) S Cefoxitin (test code = 68) S Ceftazidime (test code = 27) S Ceftriaxone (test code = 52) S Ertapenem (test code = 38) S Gentamicin (test code = 18) S Levofloxacin (test code = 22) S Meropenem (test code = 34) S Nitrofurantoin (test code = 23) S Piperacillin + Tazobactam (test code = 29) S Tetracycline (test code = 2) S Tobramycin (test code = 25) S Trimethoprim + Sulfamethoxazole (test code = 47) S CULTURE (BEAKER) (test code = 1095) A >100,000 col/mL Escherichia coli BLOOD GAS, [id number] 08:52:00* Test Item Value Reference Range Interpretation Comments PH ARTERIAL (BEAKER) (test code = 383) 7.46 7.35-7.45 H PCO2 ARTERIAL (BEAKER) (test code = 384) 30 mmHg 35-45 L PO2 ARTERIAL (BEAKER) (test code = 385) 267 mmHg 80-90 H O2 SATURATION ARTERIAL (BEAKER) (test code = 386) 99.7 % 96.0 -97.0 H HCO3 ARTERIAL (BEAKER) (test code = 388) 21 mmol/L 21-29 BASE EXCESS ARTERIAL (BEAKER) (test code = 387) -2.2 mmol/L -2.0-3 .0 L PATIENT TEMPERATURE (BEAKER) (test code = 1818) 36.0 C FIO2 (BEAKER) (test code = 1819) 100.0 % GLUCOSE-STAT [id number] 08:52:00* Test Item Value Reference Range Interpretation Comments GLUCOSE RANDOM (BEAKER) (test code = 652) 162 mg/dL 70-110 H POTASSIUM-STAT [id number] 08:52:00* Test Item Value Reference Range Interpretation Comments POTASSIUM (BEAKER) (test code = 379) 3.4 meq/L 3.6-5.5 L HGB/HCT (H&H) - STAT [id number] 08:52:00* Test Item Value Reference Range Interpretation Comments HEMOGLOBIN (BEAKER) (test code = 410) 11.1 g/dL 12.0-15.0 L HEMATOCRIT (BEAKER) (test code = 411) 33.0 % 36.0-45.0 L SODIUM NA-STAT [id number] 08:51:00* Test Item Value Reference Range Interpretation Comments SODIUM (BEAKER) (test code = 381) 138 meq/L 135-148 COMPLEMENT COMPONENT [id number] 05:17:00* Test Item Value Reference Range Interpretation Comments C4 COMPLEMENT (BEAKER) (test code = 394) 31 mg/dL 15-57 COMPLEMENT COMPONENT [id number] 05:17:00* Test Item Value Reference Range Interpretation Comments C3 COMPLEMENT (BEAKER) (test code = 393) 139 mg/dL 82-193 BASIC METABOLIC [id number] 04:01:00* Test Item Value Reference Range Interpretation Comments SODIUM (BEAKER) (test code = 381) 141 meq/L 136-145 POTASSIUM (BEAKER) (test code = 379) 4.0 meq/L 3.5-5.1 CHLORIDE (BEAKER) (test code = 382) 109 meq/L 98-107 H CO2 (BEAKER) (test code = 355) 22 meq/L 22-29 BLOOD UREA NITROGEN (BEAKER) (test code = 354) 27 mg/dL 7-21 H CREATININE (BEAKER) (test code = 358) 1.95 mg/dL 0.57-1.25 H GLUCOSE RANDOM (BEAKER) (test code = 652) 151 mg/dL 70-105 H CALCIUM (BEAKER) (test code = 697) 9.1 mg/dL 8.4-10.2 EGFR (BEAKER) (test code = 1092) 26 mL/min/1.73 sq m ESTIMATED GFR IS NOT ACCURATE CREATININE CLEARANCE IN PREDICTING GLOMERULAR FILTRATION RATE. ESTIMATED GFR IS NOT APPLICABLE FOR DIALYSIS PATIENTS. CALCIUM, [id number] 03:59:00* Test Item Value Reference Range Interpretation Comments CALCIUM IONIZED (BEAKER) (test code = 698) 1.11 mmol/L 1.12-1.27 L PH, BLOOD (BEAKER) (test code = 1810) 7.38 [id number] 03:57:00* Test Item Value Reference Range Interpretation Comments PHOSPHORUS (BEAKER) (test code = 604) 4.7 mg/dL 2.3-4.7 [id number] 03:57:00* Test Item Value Reference Range Interpretation Comments MAGNESIUM (BEAKER) (test code = 627) 1.9 mg/dL 1.6-2.6 CBC W/PLT COUNT & AUTO [id number] 03:40:00* Test Item Value Reference Range Interpretation Comments WHITE BLOOD CELL COUNT (BEAKER) (test code = 775) 11.7 K/ L 3.5- 10.5 H RED BLOOD CELL COUNT (BEAKER) (test code = 761) 3.96 M/ L 3.93-5 .22 HEMOGLOBIN (BEAKER) (test code = 410) 11.3 GM/DL 11.2-15.7 HEMATOCRIT (BEAKER) (test code = 411) 35.1 % 34.1-44.9 MEAN CORPUSCULAR VOLUME (BEAKER) (test code = 753) 88.6 fL 79. 4-94.8 MEAN CORPUSCULAR HEMOGLOBIN (BEAKER) (test code = 751) 28.5 pg 25.6-32.2 MEAN CORPUSCULAR HEMOGLOBIN CONC (BEAKER) (test code = 752) 32.2 GM/DL 32.2-35.5 RED CELL DISTRIBUTION WIDTH (BEAKER) (test code = 412) 13.6 % 11.7-14.4 PLATELET COUNT (BEAKER) (test code = 756) 173 K/CU MM 150-450 MEAN PLATELET VOLUME (BEAKER) (test code = 754) 11.2 fL 9.4-12 .3 NUCLEATED RED BLOOD CELLS (BEAKER) (test code = 413) 0 /100 WBC 0 -0 NEUTROPHILS RELATIVE PERCENT (BEAKER) (test code = 429) 59 % LYMPHOCYTES RELATIVE PERCENT (BEAKER) (test code = 430) 26 % MONOCYTES RELATIVE PERCENT (BEAKER) (test code = 431) 7 % EOSINOPHILS RELATIVE PERCENT (BEAKER) (test code = 432) 6 % BASOPHILS RELATIVE PERCENT (BEAKER) (test code = 437) 1 % NEUTROPHILS ABSOLUTE COUNT (BEAKER) (test code = 670) 6.96 K/ L 1.56-6.13 H LYMPHOCYTES ABSOLUTE COUNT (BEAKER) (test code = 414) 3.10 K/ L 1.18-3.74 MONOCYTES ABSOLUTE COUNT (BEAKER) (test code = 415) 0.77 K/ L 0. 24-0.36 H EOSINOPHILS ABSOLUTE COUNT (BEAKER) (test code = 416) 0.74 K/ L 0.04-0.36 H BASOPHILS ABSOLUTE COUNT (BEAKER) (test code = 417) 0.13 K/ L 0. 01-0.08 H IMMATURE GRANULOCYTES-RELATIVE PERCENT (BEAKER) (test code = 2801) 0 % 0-1 CT, BRAIN, WITHOUT [id number] 03:08:00FINAL REPORT CT, BRAIN, WITHOUT CONTRAST INDICATION: [...] acute infarct or parenchymal hemorrhage.Midline structures: Normally positioned.Cere bellum and brainstem: Commensurate volume loss.Ventricles: Normal volume.Extra-a xial spaces: Unremarkable. Calvarium and skull base: Intact.Paranasal sinuses an d mastoid air cells: Trace left mastoid effusion.Orbital contents: Included port ions unremarkable. Additional findings: None. IMPRESSION: No acute intracrania l abnormality. Chronic deep white matter changes for which additional characteri zation with MR may be obtained as clinically warranted. Signed: JR Bates Robert MDReport Verified Date/Time: 06/16/2017 03:08:10 Reading Location: [facility] C013Y CT Body Reading Room -GLUCOSE [id number] 19:05:00* Test Item Value Reference Range Interpretation Comments POC-GLUCOSE METER (BEAKER) (test code = 1538) 154 mg/dL 70-110 H TESTED AT [facility] [address] [facility] [address] POCT-GLUCOSE [id number] 12:01:00* Test Item Value Reference Range Interpretation Comments POC-GLUCOSE METER (BEAKER) (test code = 1538) 165 mg/dL 70-110 H TESTED AT [facility] [address] [facility] [address] POCT-GLUCOSE [id number] 08:48:00* Test Item Value Reference Range Interpretation Comments POC-GLUCOSE METER (BEAKER) (test code = 1538) 172 mg/dL 70-110 H TESTED AT [facility] [address] [facility] [place] [address] CALCIUM, [id number] 07:24:00* Test Item Value Reference Range Interpretation Comments CALCIUM IONIZED (BEAKER) (test code = 698) 1.08 mmol/L 1.12-1.27 L PH, BLOOD (BEAKER) (test code = 1810) 7.40 BASIC METABOLIC [id number] 06:44:00* Test Item Value Reference Range Interpretation Comments SODIUM (BEAKER) (test code = 381) 141 meq/L 136-145 POTASSIUM (BEAKER) (test code = 379) 3.9 meq/L 3.5-5.1 CHLORIDE (BEAKER) (test code = 382) 110 meq/L 98-107 H CO2 (BEAKER) (test code = 355) 23 meq/L 22-29 BLOOD UREA NITROGEN (BEAKER) (test code = 354) 29 mg/dL 7-21 H CREATININE (BEAKER) (test code = 358) 1.77 mg/dL 0.57-1.25 H GLUCOSE RANDOM (BEAKER) (test code = 652) 131 mg/dL 70-105 H CALCIUM (BEAKER) (test code = 697) 8.9 mg/dL 8.4-10.2 EGFR (BEAKER) (test code = 1092) 29 mL/min/1.73 sq m ESTIMATED GFR IS NOT ACCURATE CREATININE CLEARANCE IN PREDICTING GLOMERULAR FILTRATION RATE. ESTIMATED GFR IS NOT APPLICABLE FOR DIALYSIS PATIENTS. [id number] 06:36:00* Test Item Value Reference Range Interpretation Comments PHOSPHORUS (BEAKER) (test code = 604) 3.9 mg/dL 2.3-4.7 [id number] 06:36:00* Test Item Value Reference Range Interpretation Comments MAGNESIUM (BEAKER) (test code = 627) 1.9 mg/dL 1.6-2.6 PROTHROMBIN [id number] 05:49:00* Test Item Value Reference Range Interpretation Comments PROTIME (BEAKER) (test code = 759) 14.2 seconds 11.7-14.7 INR (BEAKER) (test code = 370) 1.1 <=5.9 RECOMMENDED COUMADIN/WARFARIN INR THERAPY RANGESSTANDARD DOSE: 2.0 - 3.0 Inclu esvin: PROPHYLAXIS for venous thrombosis, systemic embolization; TREATMENT for brandie ous thrombosis and/or pulmonary embolus.HIGH RISK: Target INR is 2.5-3.5 for pat ients with mechanical heart valves.CBC W/PLT COUNT & AUTO [id number] 05:32:00* Test Item Value Reference Range Interpretation Comments WHITE BLOOD CELL COUNT (BEAKER) (test code = 775) 9.6 K/ L 3.5- 10.5 RED BLOOD CELL COUNT (BEAKER) (test code = 761) 3.87 M/ L 3.93-5 .22 L HEMOGLOBIN (BEAKER) (test code = 410) 11.0 GM/DL 11.2-15.7 L HEMATOCRIT (BEAKER) (test code = 411) 34.2 % 34.1-44.9 MEAN CORPUSCULAR VOLUME (BEAKER) (test code = 753) 88.4 fL 79. 4-94.8 MEAN CORPUSCULAR HEMOGLOBIN (BEAKER) (test code = 751) 28.4 pg 25.6-32.2 MEAN CORPUSCULAR HEMOGLOBIN CONC (BEAKER) (test code = 752) 32.2 GM/DL 32.2-35.5 RED CELL DISTRIBUTION WIDTH (BEAKER) (test code = 412) 13.8 % 11.7-14.4 PLATELET COUNT (BEAKER) (test code = 756) 149 K/CU MM 150-450 L MEAN PLATELET VOLUME (BEAKER) (test code = 754) 11.3 fL 9.4-12 .3 NUCLEATED RED BLOOD CELLS (BEAKER) (test code = 413) 0 /100 WBC 0 -0 NEUTROPHILS RELATIVE PERCENT (BEAKER) (test code = 429) 53 % LYMPHOCYTES RELATIVE PERCENT (BEAKER) (test code = 430) 31 % MONOCYTES RELATIVE PERCENT (BEAKER) (test code = 431) 8 % EOSINOPHILS RELATIVE PERCENT (BEAKER) (test code = 432) 7 % BASOPHILS RELATIVE PERCENT (BEAKER) (test code = 437) 1 % NEUTROPHILS ABSOLUTE COUNT (BEAKER) (test code = 670) 5.06 K/ L 1.56-6.13 LYMPHOCYTES ABSOLUTE COUNT (BEAKER) (test code = 414) 3.00 K/ L 1.18-3.74 MONOCYTES ABSOLUTE COUNT (BEAKER) (test code = 415) 0.72 K/ L 0. 24-0.36 H EOSINOPHILS ABSOLUTE COUNT (BEAKER) (test code = 416) 0.71 K/ L 0.04-0.36 H BASOPHILS ABSOLUTE COUNT (BEAKER) (test code = 417) 0.12 K/ L 0. 01-0.08 H IMMATURE GRANULOCYTES-RELATIVE PERCENT (BEAKER) (test code = 2801) 0 % 0-1 CT, [id number] 00:33:00FINAL REPORT CT, ABDOMEN \T\ PELVIS, WITHOUT IV CONTRAST INDICATION: aortic abnormality; [...] present with extension into all major arterial branches.Pe ritoneum and retroperitoneum: No free air, fluid or adenopathy. Skeleton: No acute bony abnormality.Additional findings: None. IMPRESSION: Limited noncontr ast evaluation. Tortuous abdominal aorta without aneurysmal dilation calcific at herosclerosis noted throughout the abdominal and visible portions of the pelvic compartments with extension into all major arterial branches. Signed: Amilcar van JR, Leno Martinez Verified Date/Time: 06/15/2017 00:33:14 Reading Locatio n: [facility] B1 C013Y CT Body Reading Room -GLUCOSE [id number] 21:28:00* Test Item Value Reference Range Interpretation Comments POC-GLUCOSE METER (RIVER) (test code = 1538) 184 mg/dL 70-110 H TESTED AT [facility] [address] [facility] [address] POCT-GLUCOSE [id number] 18:31:00* Test Item Value Reference Range Interpretation Comments POC-GLUCOSE METER (BEAKER) (test code = 1538) 140 mg/dL 70-110 H TESTED AT [facility] [address] [facility] [address] POCT-GLUCOSE [id number] 11:53:00* Test Item Value Reference Range Interpretation Comments POC-GLUCOSE METER (BEAKER) (test code = 1538) 194 mg/dL 70-110 H TESTED AT [facility] [address] [facility] [address] CALCIUM, [id number] 08:44:00* Test Item Value Reference Range Interpretation Comments CALCIUM IONIZED (BEAKER) (test code = 698) 1.11 mmol/L 1.12-1.27 L PH, BLOOD (BEAKER) (test code = 1810) 7.35 [id number] 07:44:00* Test Item Value Reference Range Interpretation Comments FERRITIN (BEAKER) (test code = 361) 224 ng/mL 5-275 PROTHROMBIN [id number] 07:39:00* Test Item Value Reference Range Interpretation Comments PROTIME (BEAKER) (test code = 759) 13.8 seconds 11.7-14.7 INR (BEAKER) (test code = 370) 1.1 <=5.9 RECOMMENDED COUMADIN/WARFARIN INR THERAPY RANGESSTANDARD DOSE: 2.0 - 3.0 Inclu esvin: PROPHYLAXIS for venous thrombosis, systemic embolization; TREATMENT for brandie ous thrombosis and/or pulmonary embolus.HIGH RISK: Target INR is 2.5-3.5 for pat ients with mechanical heart valves.B-TYPE NATRIURETIC FACTOR (BNP)2017-06-14 07:27:00* Test Item Value Reference Range Interpretation Comments B-TYPE NATRIURETIC PEPTIDE (BEAKER) (test code = 700) 216 pg/mL 0-100 H [id number] 07:26:00* Test Item Value Reference Range Interpretation Comments PHOSPHORUS (BEAKER) (test code = 604) 4.2 mg/dL 2.3-4.7 [id number] 07:26:00* Test Item Value Reference Range Interpretation Comments MAGNESIUM (BEAKER) (test code = 627) 2.2 mg/dL 1.6-2.6 BASIC METABOLIC [id number] 07:24:00* Test Item Value Reference Range Interpretation Comments SODIUM (BEAKER) (test code = 381) 141 meq/L 136-145 POTASSIUM (BEAKER) (test code = 379) 3.9 meq/L 3.5-5.1 CHLORIDE (BEAKER) (test code = 382) 107 meq/L 98-107 CO2 (BEAKER) (test code = 355) 25 meq/L 22-29 BLOOD UREA NITROGEN (BEAKER) (test code = 354) 30 mg/dL 7-21 H CREATININE (BEAKER) (test code = 358) 1.91 mg/dL 0.57-1.25 H GLUCOSE RANDOM (BEAKER) (test code = 652) 133 mg/dL 70-105 H CALCIUM (BEAKER) (test code = 697) 9.1 mg/dL 8.4-10.2 EGFR (BEAKER) (test code = 1092) 27 mL/min/1.73 sq m ESTIMATED GFR IS NOT ACCURATE CREATININE CLEARANCE IN PREDICTING GLOMERULAR FILTRATION RATE. ESTIMATED GFR IS NOT APPLICABLE FOR DIALYSIS PATIENTS. IRON, TIBC, % SAT. (WITHOUT FERRITIN)2017-06-14 07:22:00* Test Item Value Reference Range Interpretation Comments IRON (BEAKER) (test code = 547) 42 ug/dL 40-160 TOTAL IRON BINDING CAPACITY (BEAKER) (test code = 769) 301 ug/dL 250-450 IRON % SATURATION (2) (BEAKER) (test code = 2590) 14 % 20-5 5 L POCT-GLUCOSE [id number] 07:17:00* Test Item Value Reference Range Interpretation Comments POC-GLUCOSE METER (BEAKER) (test code = 1538) 156 mg/dL 70-110 H TESTED AT [facility] [address] [facility] [address] RETICULOCYTE [id number] 07:03:00* Test Item Value Reference Range Interpretation Comments RETICULOCYTE COUNT PCT (BEAKER) (test code = 575) 1.8 % 0.5- 1.7 H CBC W/PLT COUNT & AUTO [id number] 07:03:00* Test Item Value Reference Range Interpretation Comments WHITE BLOOD CELL COUNT (BEAKER) (test code = 775) 7.9 K/ L 3.5- 10.5 RED BLOOD CELL COUNT (BEAKER) (test code = 761) 4.08 M/ L 3.93-5 .22 HEMOGLOBIN (BEAKER) (test code = 410) 11.8 GM/DL 11.2-15.7 HEMATOCRIT (BEAKER) (test code = 411) 36.4 % 34.1-44.9 MEAN CORPUSCULAR VOLUME (BEAKER) (test code = 753) 89.2 fL 79. 4-94.8 MEAN CORPUSCULAR HEMOGLOBIN (BEAKER) (test code = 751) 28.9 pg 25.6-32.2 MEAN CORPUSCULAR HEMOGLOBIN CONC (BEAKER) (test code = 752) 32.4 GM/DL 32.2-35.5 RED CELL DISTRIBUTION WIDTH (BEAKER) (test code = 412) 13.6 % 11.7-14.4 PLATELET COUNT (BEAKER) (test code = 756) 131 K/CU MM 150-450 L MEAN PLATELET VOLUME (BEAKER) (test code = 754) 10.9 fL 9.4-12 .3 NUCLEATED RED BLOOD CELLS (BEAKER) (test code = 413) 0 /100 WBC 0 -0 NEUTROPHILS RELATIVE PERCENT (BEAKER) (test code = 429) 51 % LYMPHOCYTES RELATIVE PERCENT (BEAKER) (test code = 430) 34 % MONOCYTES RELATIVE PERCENT (BEAKER) (test code = 431) 6 % EOSINOPHILS RELATIVE PERCENT (BEAKER) (test code = 432) 8 % BASOPHILS RELATIVE PERCENT (BEAKER) (test code = 437) 1 % NEUTROPHILS ABSOLUTE COUNT (BEAKER) (test code = 670) 3.99 K/ L 1.56-6.13 LYMPHOCYTES ABSOLUTE COUNT (BEAKER) (test code = 414) 2.70 K/ L 1.18-3.74 MONOCYTES ABSOLUTE COUNT (BEAKER) (test code = 415) 0.44 K/ L 0. 24-0.36 H EOSINOPHILS ABSOLUTE COUNT (BEAKER) (test code = 416) 0.63 K/ L 0.04-0.36 H BASOPHILS ABSOLUTE COUNT (BEAKER) (test code = 417) 0.08 K/ L 0. 01-0.08 IMMATURE GRANULOCYTES-RELATIVE PERCENT (BEAKER) (test code = 2801) 0 % 0-1 CT, CHEST, WITHOUT [id number] 03:45:00Patient with history of sarcoidosis diagnosed in [...] origin of the right subclavian artery. Signed: Lary Horvath MDReport Verified Date/Time: 06/14/2017 03:45:59 Reading Location: [address] Reading Room ALYSIS W/ [id number] 22:18:00* Test Item Value Reference Range Interpretation Comments COLOR (BEAKER) (test code = 470) Light Yellow CLARITY (BEAKER) (test code = 469) Hazy SPECIFIC GRAVITY UA (BEAKER) (test code = 468) 1.012 1.001-1 .035 PH UA (BEAKER) (test code = 467) 5.5 5.0-8.0 PROTEIN UA (BEAKER) (test code = 464) 10 mg/dL Negative A GLUCOSE UA (BEAKER) (test code = 365) Negative Negative KETONES UA (BEAKER) (test code = 371) Negative Negative BILIRUBIN UA (BEAKER) (test code = 462) Negative Negative BLOOD UA (BEAKER) (test code = 461) Negative Negative NITRITE UA (BEAKER) (test code = 465) Positive Negative A LEUKOCYTE ESTERASE UA (BEAKER) (test code = 466) Large Negat yin A UROBILINOGEN UA (BEAKER) (test code = 463) 0.2 mg/dL 0.2-1.0 RBC UA (BEAKER) (test code = 519) < /HPF WBC UA (BEAKER) (test code = 520) 41 /HPF BACTERIA (BEAKER) (test code = 517) Occasional SQUAMOUS EPITHELIAL (BEAKER) (test code = 516) 14 /HPF SOURCE(BEAKER) (test code = 2795) Urine, Clean Catch POCT-GLUCOSE [id number] 21:57:00* Test Item Value Reference Range Interpretation Comments POC-GLUCOSE METER (BEAKER) (test code = 1538) 132 mg/dL 70-110 H TESTED AT [facility] [address] [facility] [address] CREATININE, RANDOM [id number] 21:45:00* Test Item Value Reference Range Interpretation Comments CREATININE URINE (BEAKER) (test code = 375) 96.6 mg/dL Reference Range: No NormalsPROTEIN, RANDOM [id number] 21:45:00* Test Item Value Reference Range Interpretation Comments PROTEIN, URINE (BEAKER) (test code = 1569) 22 mg/dL 0-14 H SODIUM, RANDOM [id number] 21:45:00* Test Item Value Reference Range Interpretation Comments SODIUM URINE (BEAKER) (test code = 243) 113 meq/L Reference Range: No NormalsPOCT-GLUCOSE [id number] 16:58:00* Test Item Value Reference Range Interpretation Comments POC-GLUCOSE METER (BEAKER) (test code = 1538) 145 mg/dL 70-110 H TESTED AT [facility] [address] [facility] [address] MUGA, CARD IMAGING, EQ, REST, WM, [id number] 16:55:00FINAL REPORT PROCEDURE: Resting RADIONUCLIDE VENTRICULOGRAM (MUGA scan) CPT CODE: 02908 INDICATION: Chest pain HISTORY: Cardiac risk factors: Diabetes, hypertension, hyperlipidemia, tobacco use. Other cardiovascular history: CAD with prior [place]. Recent cardiac symptoms: Chest pain. PROTOCOL: Autologous [...] Normal resting radionuclide ventriculogram. 2. No previous [facility] study for co mparison. Signed: Jorge Dye MDReport Verified Date/Time: 06/13/2017 16:55:3 5 Reading Location: [place] [id number] Reading Room Electronically sign ed by: JORGE DYE MD on 06/13/2017 04:55 PM POCT-GLUCOSE METER 2017-06-13 12:38:00* Test Item Value Reference Range Interpretation Comments POC-GLUCOSE METER (BEAKER) (test code = 1538) 267 mg/dL 70-110 H TESTED AT [facility] [address] [facility] [address] HEMOGLOBIN [id number] 10:37:00* Test Item Value Reference Range Interpretation Comments HEMOGLOBIN A1C (BEAKER) (test code = 368) 6.9 % 4.3-6.1 H BASIC METABOLIC [id number] 08:52:00* Test Item Value Reference Range Interpretation Comments SODIUM (BEAKER) (test code = 381) 139 meq/L 136-145 POTASSIUM (BEAKER) (test code = 379) 3.9 meq/L 3.5-5.1 CHLORIDE (BEAKER) (test code = 382) 107 meq/L 98-107 CO2 (BEAKER) (test code = 355) 24 meq/L 22-29 BLOOD UREA NITROGEN (BEAKER) (test code = 354) 31 mg/dL 7-21 H CREATININE (BEAKER) (test code = 358) 1.92 mg/dL 0.57-1.25 H GLUCOSE RANDOM (BEAKER) (test code = 652) 136 mg/dL 70-105 H CALCIUM (BEAKER) (test code = 697) 9.0 mg/dL 8.4-10.2 EGFR (BEAKER) (test code = 1092) 26 mL/min/1.73 sq m ESTIMATED GFR IS NOT ACCURATE CREATININE CLEARANCE IN PREDICTING GLOMERULAR FILTRATION RATE. ESTIMATED GFR IS NOT APPLICABLE FOR DIALYSIS PATIENTS. [id number] 08:38:00* Test Item Value Reference Range Interpretation Comments MAGNESIUM (RIVER) (test code = 627) 1.7 mg/dL 1.6-2.6 LIPID [id number] 08:38:00* Test Item Value Reference Range Interpretation Comments TRIGLYCERIDES (BEAKER) (test code = 540) 159 mg/dL CHOLESTEROL (BEAKER) (test code = 631) 94 mg/dL HDL CHOLESTEROL (BEAKER) (test code = 976) 33 mg/dL LDL CHOLESTEROL CALCULATED (MARKAKER) (test code = 633) 29 mg/dL Triglyceride Reference Range: Low Risk <150 Borderline 150-199 High Risk 200-499 Very High Risk >=500Cholesterol Reference Range: Low Risk <200 Borderline 200-239 High Risk >240HDL Cholesterol Reference Range: Low Risk >=60 High Risk <40LDL Cholesterol Reference Range: Optimal <100 Near Optimal 100-129 Borderline 130-159 High 160-189 Very High >=190 POCT- GLUCOSE [id number] 08:19:00* Test Item Value Reference Range Interpretation Comments POC-GLUCOSE METER (RIVER) (test code = 1538) 159 mg/dL 70-110 H TESTED AT [facility] [address] [facility] [address] TROPONIN [id number] 08:02:00* Test Item Value Reference Range Interpretation Comments TROPONIN I (RIVER) (test code = 397) 0.01 ng/mL 0.00-0.03 Troponin I (TnI) levels must be interpreted in the context of the presenting sym ptoms and the clinical findings. Elevated TnI levels indicate myocardial damage, but are not specific for ischemic heart disease. Elevated TnI levels are seen in patients with other cardiac conditions (including myocarditis and congestive h eart failure), and slight TnI elevations occur in patients with other conditions , including sepsis, renal failure, acidosis, acute neurological disease, and per sistent tachyarrhythmia.TSH/FREE T4 IF [id number] 06:21:00* Test Item Value Reference Range Interpretation Comments THYROID STIMULATING HORMONE (RIVER) (test code = 772) 3.12 uIU/mL 0.35-4.94 PROTHROMBIN TIME/[id number] 05:51:00* Test Item Value Reference Range Interpretation Comments PROTIME (BEAKER) (test code = 759) 14.3 seconds 11.7-14.7 INR (BEAKER) (test code = 370) 1.1 <=5.9 RECOMMENDED COUMADIN/WARFARIN INR THERAPY RANGESSTANDARD DOSE: 2.0 - 3.0 Inclu esvin: PROPHYLAXIS for venous thrombosis, systemic embolization; TREATMENT for brandie ous thrombosis and/or pulmonary embolus.HIGH RISK: Target INR is 2.5-3.5 for pat ients with mechanical heart valves.CBC W/PLT COUNT & AUTO [id number] 05:44:00* Test Item Value Reference Range Interpretation Comments WHITE BLOOD CELL COUNT (BEAKER) (test code = 775) 8.5 K/ L 3.5- 10.5 RED BLOOD CELL COUNT (BEAKER) (test code = 761) 3.78 M/ L 3.93-5 .22 L HEMOGLOBIN (BEAKER) (test code = 410) 10.9 GM/DL 11.2-15.7 L HEMATOCRIT (BEAKER) (test code = 411) 33.9 % 34.1-44.9 L MEAN CORPUSCULAR VOLUME (BEAKER) (test code = 753) 89.7 fL 79. 4-94.8 MEAN CORPUSCULAR HEMOGLOBIN (BEAKER) (test code = 751) 28.8 pg 25.6-32.2 MEAN CORPUSCULAR HEMOGLOBIN CONC (BEAKER) (test code = 752) 32.2 GM/DL 32.2-35.5 RED CELL DISTRIBUTION WIDTH (BEAKER) (test code = 412) 13.6 % 11.7-14.4 PLATELET COUNT (BEAKER) (test code = 756) 142 K/CU MM 150-450 L MEAN PLATELET VOLUME (BEAKER) (test code = 754) 11.5 fL 9.4-12 .3 NUCLEATED RED BLOOD CELLS (BEAKER) (test code = 413) 0 /100 WBC 0 -0 NEUTROPHILS RELATIVE PERCENT (BEAKER) (test code = 429) 48 % LYMPHOCYTES RELATIVE PERCENT (BEAKER) (test code = 430) 37 % MONOCYTES RELATIVE PERCENT (BEAKER) (test code = 431) 7 % EOSINOPHILS RELATIVE PERCENT (BEAKER) (test code = 432) 8 % BASOPHILS RELATIVE PERCENT (BEAKER) (test code = 437) 1 % NEUTROPHILS ABSOLUTE COUNT (BEAKER) (test code = 670) 4.05 K/ L 1.56-6.13 LYMPHOCYTES ABSOLUTE COUNT (BEAKER) (test code = 414) 3.11 K/ L 1.18-3.74 MONOCYTES ABSOLUTE COUNT (BEAKER) (test code = 415) 0.57 K/ L 0. 24-0.36 H EOSINOPHILS ABSOLUTE COUNT (BEAKER) (test code = 416) 0.64 K/ L 0.04-0.36 H BASOPHILS ABSOLUTE COUNT (BEAKER) (test code = 417) 0.08 K/ L 0. 01-0.08 IMMATURE GRANULOCYTES-RELATIVE PERCENT (BEAKER) (test code = 2801) 0 % 0-1 POCT-GLUCOSE [id number] 03:25:00* Test Item Value Reference Range Interpretation Comments POC-GLUCOSE METER (BEAKER) (test code = 1538) 143 mg/dL 70-110 H TESTED AT [facility] [address] [facility] [address] CREATINE KINASE (CK), TOTAL AND [id number] 23:07:00* Test Item Value Reference Range Interpretation Comments CREATINE KINASE TOTAL (BEAKER) (test code = 380) 36 U/L 29-20 0 CREATINE KINASE-MB (BEAKER) (test code = 750) 0.8 ng/mL 0.0-6.6 CREATINE KINASE-MB INDEX (BEAKER) (test code = 395) 2.2 % CK-MB Reference Range:<6.7 Normal6.7-10.0 Borderline>10.0 Abnormal TROPONIN [id number] 23:07:00* Test Item Value Reference Range Interpretation Comments TROPONIN I (BEAKER) (test code = 397) 0.01 ng/mL 0.00-0.03 Troponin I (TnI) levels must be interpreted in the context of the presenting sym ptoms and the clinical findings. Elevated TnI levels indicate myocardial damage, but are not specific for ischemic heart disease. Elevated TnI levels are seen in patients with other cardiac conditions (including myocarditis and congestive h eart failure), and slight TnI elevations occur in patients with other conditions , including sepsis, renal failure, acidosis, acute neurological disease, and per sistent tachyarrhythmia.POCT-GLUCOSE [id number] 20:44:00* Test Item Value Reference Range Interpretation Comments POC-GLUCOSE METER (BEAKER) (test code = 1538) 195 mg/dL 70-110 H TESTED AT [facility] [address] [facility] [address] RAD, CHEST, 1 VIEW, NON [id number] 15:25:00Reason for exam:->CHEST PAINFINAL REPORT Chest, 1 view. History: Chest pain. Comparison: None available. Discussion: The cardiomediastinal silhouette and pulmonary vasculature are within normal limits for a portable exam. The lungs are clear w ithout evidence of consolidation or effusion. Degenerative changes are present i n the thoracic spine. The soft tissues and osseous structures are intact. IMPR ESSION: No acute cardiopulmonary abnormality. Signed: Benji Garnett Date/Time: 06/12/2017 15:25:37 Reading Location: [facility] B- TYPE NATRIURETIC FACTOR (BNP)2017-06-12 14:50:00* Test Item Value Reference Range Interpretation Comments B-TYPE NATRIURETIC PEPTIDE (BEAKER) (test code = 700) 154 pg/mL 0-100 H CREATINE KINASE (CK), TOTAL AND [id number] 14:49:00* Test Item Value Reference Range Interpretation Comments CREATINE KINASE TOTAL (BEAKER) (test code = 380) 43 U/L 29-20 0 CREATINE KINASE-MB (BEAKER) (test code = 750) 1.0 ng/mL 0.0-6.6 CREATINE KINASE-MB INDEX (BEAKER) (test code = 395) 2.3 % CK-MB Reference Range:<6.7 Normal6.7-10.0 Borderline>10.0 Abnormal TROPONIN [id number] 14:49:00* Test Item Value Reference Range Interpretation Comments TROPONIN I (BEAKER) (test code = 397) < ng/mL 0.00-0.03 Troponin I (TnI) levels must be interpreted in the context of the presenting sym ptoms and the clinical findings. Elevated TnI levels indicate myocardial damage, but are not specific for ischemic heart disease. Elevated TnI levels are seen in patients with other cardiac conditions (including myocarditis and congestive h eart failure), and slight TnI elevations occur in patients with other conditions , including sepsis, renal failure, acidosis, acute neurological disease, and per sistent tachyarrhythmia.BASIC METABOLIC [id number] 14:45:00* Test Item Value Reference Range Interpretation Comments SODIUM (BEAKER) (test code = 381) 139 meq/L 136-145 POTASSIUM (BEAKER) (test code = 379) 5.2 meq/L 3.5-5.1 H Specimen markedly hemolyzed CHLORIDE (BEAKER) (test code = 382) 104 meq/L 98-107 CO2 (BEAKER) (test code = 355) 21 meq/L 22-29 L BLOOD UREA NITROGEN (BEAKER) (test code = 354) 33 mg/dL 7-21 H CREATININE (BEAKER) (test code = 358) 2.15 mg/dL 0.57-1.25 H Specimen markedly hemolyzed GLUCOSE RANDOM (BEAKER) (test code = 652) 230 mg/dL 70-105 H CALCIUM (BEAKER) (test code = 697) 9.5 mg/dL 8.4-10.2 EGFR (BEAKER) (test code = 1092) mL/min/1.73 sq m INSUFFICIENT CLINICAL DATA TO CALCULATE ESTIMATED GFR. [id number] 14:42:00* Test Item Value Reference Range Interpretation Comments MAGNESIUM (BEAKER) (test code = 627) 2.3 mg/dL 1.6-2.6 Specimen markedly hemolyzed PT/[id number] 14:41:00* Test Item Value Reference Range Interpretation Comments PROTIME (BEAKER) (test code = 759) 14.2 seconds 11.7-14.7 INR (BEAKER) (test code = 370) 1.1 <=5.9 PARTIAL THROMBOPLASTIN TIME (BEAKER) (test code = 760) 32.8 seconds 22.5-36.0 RECOMMENDED COUMADIN/WARFARIN INR THERAPY RANGESSTANDARD DOSE: 2.0 - 3.0 Inclu esvin: PROPHYLAXIS for venous thrombosis, systemic embolization; TREATMENT for brandie ous thrombosis and/or pulmonary embolus.HIGH RISK: Target INR is 2.5-3.5 for pat ients with mechanical heart valves.CBC W/PLT COUNT & AUTO [id number] 14:26:00* Test Item Value Reference Range Interpretation Comments WHITE BLOOD CELL COUNT (BEAKER) (test code = 775) 8.7 K/ L 3.5- 10.5 RED BLOOD CELL COUNT (BEAKER) (test code = 761) 3.95 M/ L 3.93-5 .22 HEMOGLOBIN (BEAKER) (test code = 410) 11.4 GM/DL 11.2-15.7 HEMATOCRIT (BEAKER) (test code = 411) 35.1 % 34.1-44.9 MEAN CORPUSCULAR VOLUME (BEAKER) (test code = 753) 88.9 fL 79. 4-94.8 MEAN CORPUSCULAR HEMOGLOBIN (BEAKER) (test code = 751) 28.9 pg 25.6-32.2 MEAN CORPUSCULAR HEMOGLOBIN CONC (BEAKER) (test code = 752) 32.5 GM/DL 32.2-35.5 RED CELL DISTRIBUTION WIDTH (BEAKER) (test code = 412) 13.8 % 11.7-14.4 PLATELET COUNT (BEAKER) (test code = 756) 166 K/CU MM 150-450 MEAN PLATELET VOLUME (BEAKER) (test code = 754) 11.9 fL 9.4-12 .3 NUCLEATED RED BLOOD CELLS (BEAKER) (test code = 413) 0 /100 WBC 0 -0 NEUTROPHILS RELATIVE PERCENT (BEAKER) (test code = 429) 73 % LYMPHOCYTES RELATIVE PERCENT (BEAKER) (test code = 430) 18 % MONOCYTES RELATIVE PERCENT (BEAKER) (test code = 431) 5 % EOSINOPHILS RELATIVE PERCENT (BEAKER) (test code = 432) 3 % BASOPHILS RELATIVE PERCENT (BEAKER) (test code = 437) 1 % NEUTROPHILS ABSOLUTE COUNT (BEAKER) (test code = 670) 6.35 K/ L 1.56-6.13 H LYMPHOCYTES ABSOLUTE COUNT (BEAKER) (test code = 414) 1.57 K/ L 1.18-3.74 MONOCYTES ABSOLUTE COUNT (BEAKER) (test code = 415) 0.41 K/ L 0. 24-0.36 H EOSINOPHILS ABSOLUTE COUNT (BEAKER) (test code = 416) 0.30 K/ L 0.04-0.36 BASOPHILS ABSOLUTE COUNT (BEAKER) (test code = 417) 0.09 K/ L 0. 01-0.08 H IMMATURE GRANULOCYTES-RELATIVE PERCENT (BEAKER) (test code = 2801) 0 % 0-1 CHEST 2 VIEWS [place] [address] Patient Name: CINTIA ROGERS MR #: [id number] : 1955 Age/Sex: 62/F Req #: [id number] Adm Physician: Ordered by: DAVID REYES MD, MD Report #: [id number] Location: [facility] Room/Bed: Procedure: [id number] DX/CHEST 2 VIEWS Exam Date: Exam Time: 1140 REPORT STATUS: Signed PROCEDURE: CHEST 2 VIEWS TECHNIQUE: PA and lateral chest INDICATION: B ack and shoulder pain. COMPARISON: [facility], DX, CHEST SINGLE (PORTABLE), 09/01/2017, 19:46. FINDINGS: Small right pleural effusion. Minimal right lower lobe volume loss. Lungs otherwise clear and symmetrically inflated. Upper limits of normal heart size, postoperative sequela of ster notomy. Right internal jugular dialysis catheter tips in the low SVC in high right atrium. Prominent central pulmonary vasculature. Mildly tortuous thorac ic aorta. Grossly intact skeleton. CONCLUSION: 1. Trace right ple ural effusion. 2. Mild central vascular congestion. Dictated by: Kina Montez M.D. on 10/10/2017 at 12:06 Electronically approved by: Kina Montez M.D. on 10/10/2017 at 12:06 Dictated B y: KINA MONTEZ MD 12 06 Transcribed By: TYRELL on 10/10/17 1206 COPY TO: DAVID REYES IR CONSULT [address] [place], [place] [address] Patient Name: CINTIA ROGERS MR #: [id number] : 1955 Age/Sex: 62/F Req #: [id number] [facility] Physician: JULIO ANTONY MD Ordered by: DAVID REYES MD, MD Report #: [id number] Location: [facility] Room/Bed: [facility] Procedure: [id number] DX/IR CONSULT Exam Date: Exam Time: REPORT STATUS: Signed Date and Time: 09/06/2017 Procedure: Right internal jugular tunn eled hemodialysis catheter placement boomboat operator: Dr. Mayra Gill e-operative diagnosis: End-stage renal disease Post-operative diagnosis: End-s tage renal disease Conscious Sedation: Versed 1 mg and Fentanyl 50 mcg. The patient's heart rate and pulse oximetry were continuously monitored by the interventional radiology nurse. Blood pressure was monitored at 5 minute int ervals. Additional Medications: Lidocaine 1% for local anesthesia Fluoros copy time: 0.9 minutes Dose-area Product: 139.4 cGycm2. Contrast used: 0 Estimated blood loss: Less than 5 cc Blood products administered: None Specimens: None Implants: 16 Albanian, 19 cm tip-cuff tunneled hemodialysis cath eter Condition at completion of procedure: Stable Disposition: Returned to [facility] Procedure in detail: Informed consent for the procedure was obtained from the patient after discussion of risks and benefits. The right neck and upper chest was prepped and draped in the standard sterile fashion af ter the patient was placed in the supine position on the fluoroscopic table. 1% lidocaine was administered into the skin and subcutaneous tissues of the right lower neck for local anesthesia. Then, under continuous sonographic g uidance, a 21-gauge micropuncture needle was advanced into the right internal jugular vein. A 0.018 inch wire was advanced centrally under fluoroscopic romero dance. The needle was then removed and access was secured with a micropunctur e sheath. Intravascular length to the upper right atrium was determined using the microwire, which was then removed along with the inner dilator of the anthony ropuncture sheath. A 0.035 inch Amplatz wire was then advanced through the mi cropuncture sheath into the inferior vena cava under fluoroscopic guidance. Attention was then turned to the right upper chest. A suitable catheter exit site was determined, approximately 3 fingerbreadths inferior to the clavicle. The skin was marked. 1% lidocaine was used to anesthetize a subcutaneous tract extending from the planned catheter exit site to the venotomy at the right lower neck. A stab incision was made on the right upper chest. Subsequently, the catheter was tunneled from the exit site of the right upper chest to the venotomy at the right lower neck. The retention cuff of the catheter was a dvanced well into the subcutaneous tunnel. The micropuncture sheath was the n removed over the wire and the tract was serially dilated. Finally, a 16.5-F rench peel-away sheath was advanced over the wire under fluoroscopic guidance. The wire and inner dilator of the sheath were removed and the catheter was a dvanced through the peel-away sheath, which was then broken and removed. The catheter tip was positioned in the upper right atrium. Each catheter lume n showed good bidirectional flow. Each lumen was then packed with 2000 units of heparin. The catheter was secured at the exit site on the right upper ches t with monofilament nylon suture. The venotomy at the right lower neck was cl osed with tissue adhesive. A sterile dressing was applied. The patient lisy rated the procedure well without immediate complication. FINDIN GS: Patent right internal jugular vein IMPRESSION: Successful p lacement of a 16 Albanian, 19 cm tip-cuff tunneled hemodialysis catheter by a [facility] internal jugular approach under sonographic and fluoroscopic guidance. Signed by: Dr. Tigist Nunez M.D. on 09/06/2017 1:22 PM Dictated By: SHIRA NUNEZ MD 1246 Tra nscribed By: DENNYS on 09/08/17 7183 COPY TO: DAVID REYES SPECIAL PROCEDURE IN ELECTRONEURODIAGNOSTIC TECHNOLOGIST [facility] [address] [place] [address] Patient Name: CINTIA ROGERS MR #: [id number] : 1955 Age/Sex: 62/F Req #: [id number] Adm Physician: JULIO ANTONY MD Ordered by: DAVID REYES MD, MD Report #: [id number] Location: [facility]/SURG[facility] Room/Bed: [facility] Procedure: [id number] IR/SP ECIAL PROCEDURE IN ELECTRONEURODIAGNOSTIC TECHNOLOGIST Exam Date: Exam Time: REPORT STATUS: Signed Date and Time: 09/06/2017 Procedure: Right in ternal jugular tunneled hemodialysis catheter placement boomboat operator: Ariel Nunez Pre-operative diagnosis: End-stage renal disease Post-operati ve diagnosis: End-stage renal disease Conscious Sedation: Versed 1 mg and Fentanyl 50 mcg. The patient's heart rate and pulse oximetry were continuously monitored by the interventional radiology nurse. Blood pressure was monitored at 5 minute intervals. Additional Medications: Lidocaine 1% for local a nesthesia Fluoroscopy time: 0.9 minutes Dose-area Product: 139.4 cGycm2. Contrast used: 0 Estimated blood loss: Less than 5 cc Blood products ad ministered: None Specimens: None Implants: 16 Albanian, 19 cm tip-cuff tunnele d hemodialysis catheter Condition at completion of procedure: Stable Disposi tion: Returned to floor Procedure in detail: Informed consent fo r the procedure was obtained from the patient after discussion of risks and be nefits. The right neck and upper chest was prepped and draped in the standard sterile fashion after the patient was placed in the supine position on the fl uoroscopic table. 1% lidocaine was administered into the skin and subcutane ous tissues of the right lower neck for local anesthesia. Then, under continu ous sonographic guidance, a 21-gauge micropuncture needle was advanced into th e right internal jugular vein. A 0.018 inch wire was advanced centrally under fluoroscopic guidance. The needle was then removed and access was secured wi th a micropuncture sheath. Intravascular length to the upper right atrium was determined using the microwire, which was then removed along with the inner dilator of the micropuncture sheath. A 0.035 inch Amplatz wire was then adva nced through the micropuncture sheath into the inferior vena cava under fluoro scopic guidance. Attention was then turned to the right upper chest. A christina table catheter exit site was determined, approximately 3 fingerbreadths inferi or to the clavicle. The skin was marked. 1% lidocaine was used to anesthetiz e a subcutaneous tract extending from the planned catheter exit site to the ve notomy at the right lower neck. A stab incision was made on the right upper c hest. Subsequently, the catheter was tunneled from the exit site of the right upper chest to the venotomy at the right lower neck. The retention cuff of t he catheter was advanced well into the subcutaneous tunnel. The micropunc ture sheath was then removed over the wire and the tract was serially dilated. Finally, a 16.5-Albanian peel-away sheath was advanced over the wire under flu oroscopic guidance. The wire and inner dilator of the sheath were removed and the catheter was advanced through the peel-away sheath, which was then broken and removed. The catheter tip was positioned in the upper right atrium. Each catheter lumen showed good bidirectional flow. Each lumen was then packed with 2000 units of heparin. The catheter was secured at the exit site on the right upper chest with monofilament nylon suture. The venotomy at the right lower neck was closed with tissue adhesive. A sterile dressing was applied. The patient tolerated the procedure well without immediate complication. FINDINGS: Patent right internal jugular vein IMPRESSION: Successful placement of a 16 Albanian, 19 cm tip-cuff tunneled hemodialysis catheter by a right internal jugular approach under sonographic and fluoros copic guidance. Signed by: Dr. Tigist Nunez M.D. on 09/06/2017 1:22 PM Dictated By: TIGIST NUNEZ MD 1246 Transcribed By: DENNYS on 09/08/17 1246 COPY TO: Clark REYES CHEST SINGLE (PORTABLE) [facility] [address] [place] [address] Patient Name: CINTIA ROGERS MR #: [id number] : 1955 Age/Sex: 62/F Req #: [id number] Adm Physician: JULIO ANTONY MD Ordered by: JENA REYES MD Report #: [id number] [facility] Room/Bed: [place] [address] Procedure: [id number] DX/CH EST SINGLE (PORTABLE) Exam Date: 09/01/17 Exam Time: 1939 REPORT STATUS: Signed EXAMINATION: CHEST SINGLE (PORTABLE) INDICATION: Swelling. Thrombophlebitis. COMPARISON: Chest x-ray FINDINGS: AP view TUBES and LINES: Median sternotom y wires and mediastinal clips are again seen. LUNGS: Lungs are well inflat ed. There is perihilar interstitial opacities, consistent with interstitial edema. PLEURA: No pleural effusion or pneumothorax. HEART AND MEDIAST INUM: Cardiac size is mildly enlarged. The aorta is ectatic with atherosclero tic calcifications. BONES AND SOFT TISSUES: No acute osseous lesion. Soft tissues are unremarkable. UPPER ABDOMEN: No free air under the diaphragm. IMPRESSION: Moderate cardiomegaly with diffuse interstitial edema. Superimposed multifocal pneumonia cannot be excluded. Signed by: Dr. Abisai Higgins M.D. on 09/01/2017 8:00 PM Dictated By: ABISAI HIGGINS MD Electronicall y Signed By: ABISAI HIGGINS MD on 09/01/171999 Transcribed By: DENNYS on 09/01/17 20 00 COPY TO: JENA REYES MD RENAL [place]ITONEAL COMP [facility] [place] [address] Patient Name: CINTIA ROGERS MR #: [id number] : 1955 Age/Sex: 62/F Req #: [id number] Adm Physician: JULIO KIM MD Ordered by: DAVID REYES MD, MD Report #: [id number] Location: [facility] Room/Bed: [facility] Procedure: [id number] US/US RENAL RETROPERITONEAL COMP Exam Date: 09/01/17 Exam Time: 2018 REPORT STATUS: Signed EXAM: US RENAL RETROPERITONEAL COMP INDICATION: Acute kidney injury COMPARISON: None TECHNIQUE: Transve rse and longitudinal images of the kidneys and bladder were obtained. F INDINGS: Right Kidney: Length: 11.9 cm Appearance: Normal echogen icity. Collecting system: No hydronephrosis Stones: None Cyst/Mass: None Left Kidney: Length: 11.7 cm Appearance: Normal echogenicity. Col lecting system: No hydronephrosis Stones: None Cyst/Mass: None Bladder: Normal Other: Right pleural effusion. IMPRESSION: No hydronephro sis Signed by: Dr Husam Gonzáles MD on 09/01/2017 10:13 PM Dictated B y: HUSAM GONZÁLES MD 12 Transcribed By: DENNYS on 09/01/172212 COPY TO: DAVID REYES CHEST 2 VIEWS [place] [address] Patient Name: CINTIA ROGERS MR #: [id number] : 1955 Age/Sex: 62/F Req #: [id number] Adm Physician: Ordered by: DAFNE AMADOR DPM Report #: [id number] Location: [facility] Room/Bed: Procedure: [id number] DX/CHEST 2 VIEWS Exam Da te: 08/07/17 Exam Time: 1100 REPORT STATUS: Sig keenan PROCEDURE: Frontal and lateral views of the chest. COMPARISON: No ne. INDICATIONS: PULMONARY CLEARANCE FOR HYPERBARIC CHAMBER FI NDINGS: Lines/tubes: None. Lungs: The lungs are well inflated and wayne r. There is no evidence of pneumonia or pulmonary edema. Left mid to lower christopher ng linear atelectasis/scaring. Pleura: There is no pleural effusion o r pneumothorax. Heart and mediastinum: The heart and the mediastinum are normal. Median sternotomy wires. Aorta is calcified and tortuous. Bone s: No acute bony abnormality. IMPRESSION: 1. No acute cardiopulmo nary disease. 2. Left mid to lower lung linear atelectasis/scaring. Dict ated by: Yazan Vincent M.D. on 08/07/2017 at 11:57 Electronically approv ed by: Yazan Vincent M.D. on 08/07/2017 at 11:57 Dictated By: YAZAN VINCENT MD 0527 Transcribed By: TYRELL on 08/07/17 1152 COPY TO: DAFNE AMADOR DPM
[2020-06-09] MEDS ORDERED: ACETAMINOPHEN 325 MG TAB PO ONE (14:15)
--- NOTE | 2020-06-09 14:25 | Emergency Department Note ---
History of Present Illnes History of Present Illness Chief Complaint: Respiratory History of Present Illness This is a 65 year old female Patient in from home with reports of left lung pain, mild shortness of breath and fever that started last week Monday. Patient reports that the pain has improved some since it started last week but it is still bothering her. Patient reports that she went on a women's retreat last weekend and shared a cabin with 12 other women, one of which tested positive for covid. Patient is a former hemodialysis patient that has switched to peritoneal dialysis. Historian: Patient Arrival Mode: Car Research Lab Assistant Required: No Onset (how long ago): week(s) (1) Radiation: Reports non-radiation Severity: mild Onset quality: gradual Timing of current episode: intermittent Progression: waxing and waning Chronicity: new Context: Denies recent illness Relieving factors: none Exacerbating factors: none Associated symptoms: Reports denies other symptoms Past Medical/Family History Physician Review I have reviewed the patient's past medical and family history. Any updates have been documented here. Past Medical History Recent Fever: Yes Clinical Suspicion of Infectio: Yes New/Unexplained Change in Ment: No Past Medical History: None, Hypertension, HI, CAD, ESRD, Hemodyalisis, Anemia, Hyperlipedemia Other Medical History: HI X 2 2018 WAS ON HEMODYALISIS PERITINEAL DIAYLSIS STARTED 05/2019 Past Surgical History: Cholecysctectomy, Appendectomy, CABG Other Surgery: JUN 16 2017- TRIPLE BYPASS VEINS USED FROM LEFT ARM/LEG RT FA FISTULA Social History Smoking Cessation: Never Smoker Counseling Performed: No Alcohol Use: Social Any Illegal Drug Use: No TB Exposure/Symptoms: No Physically hurt or threatened: No Family History Family history of heart diseas: No Other Last Tetanus: UTD Any Pre-Existing Lines (PICC,: No Review of Systems Review of Systems Constitutional: Reports no symptoms EENTM: Reports no symptoms Cardiovascular: Reports no symptoms Respiratory: Reports as per HPI Gastrointestinal: Reports no symptoms Genitourinary: Reports no symptoms Musculoskeletal: Reports no symptoms Integumentary: Reports no symptoms Neurological: Reports no symptoms Psychological: Reports no symptoms Endocrine: Reports no symptoms Hematological/Lymphatic: Reports no symptoms Physical Exam Related Data Allergies: Coded Allergies: hydralazine (Verified Allergy, Intermediate, INCREASES BLOOD PRESSURE, 09/01/17) Triage Vital Signs Vital Signs Date Time Temp Pulse Resp B/P (MAP) Pulse Ox O2 Delivery O2 Flow Rate FiO2 06/09/20 12:48 99.5 94 19 154/76 98 Room Air Vital signs reviewed: Yes Physical Exam CONSTITUTIONAL Constitutional: Present well-developed, Present well-nourished HENT HENT: Present normocephalic, Present atraumatic, Present oropharynx clear/moist, Present nose normal HENT L/R: Present left ext ear normal, Present right ext ear normal EYES Eyes: Reports PERRL, Reports conjunctivae normal NECK Neck: Present ROM normal PULMONARY Pulmonary: Present effort normal, Present rales (BIBASILAR) CARDIOVASCULAR Cardiovascular: Present regular rhythm, Present heart sounds normal, Present capillary refill normal, Present normal rate GASTROINTESTINAL Abdominal: Present soft, Present nontender, Present bowel sounds normal GENITOURINARY Genitourinary: Present exam deferred SKIN Skin: Present warm, Present dry MUSCULOSKELETAL Musculoskeletal: Present ROM normal NEUROLOGICAL Neurological: Present alert, Present oriented x 3, Present no gross motor or sensory deficits PSYCHOLOGICAL Psychological: Present mood/affect normal, Present judgement normal Results Laboratory Laboratory Laboratory Tests Test 06/09/20 13:41 Imaging Imaging results reviewed: Yes Impressions TECHNIQUE: Frontal view of the chest. INDICATION: ^Y ^FEVER, COUGH ^[id number] ^1300 COMPARISON: 09/01/2017 DISCUSSION: Limited evaluation due to portable technique. Lines and hardware: Stable midline sternotomy changes. Heart and mediastinum: Mild central vascular congestion is noted. Stable tortuous thoracic aorta. Lungs and pleura: No focal airspace consolidation. No pleural effusion. No pneumothorax. Soft tissues and bones: No acute abnormality. IMPRESSION: Mild central vascular congestion. Findings could relate to fluid overload or viral infection. No lobar consolidation is noted. Signed by: Gaurav Dominguez MD on 06/09/2020 1:37 PM Assessment & Plan Medical Decision Making MDM COUGH, F/C, SOB WITH NORMAL O2 SAT, H/O ESRD ON PD DAILY AT HOME SAW DR HE, SENT HERE FOR CXR AND FURTHER EVAL, WENT TO [facility] WHERE NOONE WAS WEARING MASKS IN THIER CABIN AND 1 OF THE WOMEN HAS TESTED POS COVID - CHECK CXR, COVID SWAB Reassessment Reassessment SELF-QUARANTINE/SELF-ISOLATE, PRONING, ETC, F/U DR HE FOR COVID RESULTS 2 DAYS, RTED SX'S WORSEN, TYL/MOTRIN DIRECTED Assessment & Plan Final Impression: (1) Suspected COVID-19 virus infection Depart Disposition: HOME, SELF-CARE Last Vital Signs Date Time Temp Pulse Resp B/P (MAP) Pulse Ox O2 Delivery O2 Flow Rate FiO2 06/09/20 12:48 99.5 94 19 154/76 98 Room Air Home Meds Reported Medications Cyclobenzaprine Hcl (FLEXERIL) 5 Mg Tablet, 5 MG PO BID 05/09/19 Metoprolol Succinate (METOPROLOL SUCCINATE) 25 Mg Tab.er.24h, 25 MG PO DAILY 05/09/19 Ferrous Sulfate (FEROSUL) 325 Mg Tablet, 325 MG PO DAILY, #30 TAB 05/09/19 Sodium Bicarbonate (SODIUM BICARBONATE) 650 Mg Tablet, 10 G PO Daily, #30 TAB 05/09/19 Nifedipine (NIFEDIPINE ER) 30 Mg Tab.er.24, 60 MG PO DAILY 05/09/19 Quetiapine Fumarate (QUETIAPINE FUMARATE) 25 Mg Tablet, 25 MG PO HS 09/01/17 Atorvastatin Calcium (ATORVASTATIN CALCIUM) 20 Mg Tablet, 80 MG PO HS, #30 TAB 09/01/17 STEPHEN MAC MD Jun 09, 2020 14:25
== END 2020-06-09 14:40 | disposition home or self-care (01) ==
LOC: ER 12:35
DX: U07.1 COVID-19 (principal); R50.9 Fever, unspecified; I12.0 Hypertensive chronic kidney disease with stage 5 chronic kidney disease or end stage renal disease; N18.6 End stage renal disease; Z99.2 Dependence on renal dialysis; I25.10 Atherosclerotic heart disease of native coronary artery without angina pectoris; E78.5 Hyperlipidemia, unspecified; I25.2 Old myocardial infarction
CPT/HCPCS: 71045; 99283; U0002

== ENCOUNTER 2020-08-10 22:23 | Inpatient (IN) | payer MEDICARE, OTHER ==
[~2020-08-10] VITALS: Ht 170.2 cm; Wt 95.7 kg
[2020-08-10] MEDS ORDERED: DEXAMETHASONE 4 MG TAB PO STA (22:39)
[2020-08-10] MEDS ORDERED: ALBUTEROL/IPRATROPIUM 3 ML NEB NEB ONE (22:45)
[2020-08-10 22:51] LABS: BASOPHILS # (AUTO) 0.1 (0.0-0.1); BASOPHILS % 0.6 % (0.0-1.0); EOSINOPHILS # (AUTO) 0.1 (0.0-0.4); EOSINOPHILS % 0.8 % (0.0-6.0); HEMATOCRIT 32.4 % (34.2-44.1); HEMOGLOBIN 10.8 g/dL (12.0-16.0); LYMPHOCYTES # (AUTO) 2.8 (1.0-3.2); LYMPHOCYTES % 17.3 % (18.0-39.1); MEAN CORPUSCULAR HEMOGLOBIN 30.8 pg (28-32); MEAN CORPUSCULAR HGB CONC 33.3 g/dL (31-35); MEAN CORPUSCULAR VOLUME 92.3 fL (81-99); MONOCYTES # (AUTO) 0.8 (0.2-0.8); MONOCYTES % 4.7 % (4.4-11.3); NEUTROPHILS # (AUTO) 12.3 (2.1-6.9); NEUTROPHILS % 76.2 % (38.7-80.0); PLATELET COUNT 322 x10e3/uL (140-360); RED BLOOD COUNT 3.51 x10e6/uL (3.6-5.1)
[2020-08-10 23:11] LABS: ALBUMIN 1.6 g/dL (3.5-5.0); ALBUMIN/GLOBULIN RATIO 0.3 (0.8-2.0); ANION GAP 17.8 mmol/L (8-16); CALCIUM 7.3 mg/dL (8.4-10.2); CREATININE, SERUM 3.3 mg/dL (0.57-1.11)
[2020-08-10 23:13] LABS: POTASSIUM 2.8 mmol/L (3.5-5.1)
[2020-08-10] MEDS ORDERED: FENTANYL CITRATE/PF 100MCG/2 ML INJ IV PRN (23:15)
[2020-08-10] MEDS ORDERED: POTASSIUM CHLORIDE 20 MEQ TAB CR PO STA (23:19)
[2020-08-10] MEDS ORDERED: POTASSIUM CHLORIDE 10MEQ/100ML 100 ML IV ONE (23:30)
[2020-08-10 23:58] LABS: BODY FLUID APPEARANCE CLEAR; BODY FLUID COLOR COLORLESS; BODY FLUID TYPE PERITONEAL; RBC,BODY FLUID 2 cells/uL; WBC,BODY FLUID 45 cells/uL
[2020-08-11] VITALS (9 sets, daily range): BP systolic 118–149; BP diastolic 54–69
[2020-08-11 00:22] LABS: LYMPHOCYTES,BODY FLUID 13 %; MONO/MACROPHG,BODY FLUID 1 %; NEUTROPHILS,BODY FLUID 86 %
[2020-08-11] MEDS ORDERED: CEFTRIAXONE SOD 1 GM/NS 50 ML 50 ML IV ONE (00:30)
[2020-08-11] MEDS ORDERED: SODIUM CHLORIDE 0.9% 100 ML ONE (00:42)
[2020-08-11 00:52] LABS: CLARITY,URINE SL CLOUDY (CLEAR); COLOR,URINE YELLOW (YELLOW); KETONES,URINE NEGATIVE (NEGATIVE); LEUKOCYTE ESTERASE ,URINE TRACE (NEGATIVE); NITRITE,URINE NEGATIVE (NEGATIVE); PROTEIN,URINE DIPSTICK 2+ (NEGATIVE); URINE UROBILINOGEN 0.2 mg/dL (0.2 - 1)
[2020-08-11 00:58] LABS: BACTERIA,URINE MODERATE /HPF; EPITHELIAL CELLS,URINE MANY /LPF
[2020-08-11] MEDS ORDERED: LACTATED RINGER'S 500 ML IV ONE (01:00)
[2020-08-11] MEDS ORDERED: LACTATED RINGER'S 1,000 ML ONE (01:57)
[2020-08-11] MEDS ORDERED: ONDANSETRON HCL INJ 2MG/ML 2ML 2 MG/ML VIAL IV STA (02:22)
[2020-08-11] MEDS ORDERED: LEVEMIR FL100 UNIT/1 SC (05:37)
[2020-08-11] MEDS ORDERED: DEXTROSE 50% SYRINGE 50 ML IV PRN (07:15)
[2020-08-11] MEDS: INSULIN REGULAR, HUMAN 100 UNIT/1 ML 3ML VIAL SQ SCH ×4 (07:30→21:34)
[2020-08-11 07:35] LABS: HEMATOCRIT 25.2 % (34.2-44.1); HEMOGLOBIN 8.6 g/dL (12.0-16.0); MEAN CORPUSCULAR HEMOGLOBIN 32.1 pg (28-32); MEAN CORPUSCULAR HGB CONC 34.1 g/dL (31-35); PLATELET COUNT 203 x10e3/uL (140-360); RED BLOOD COUNT 2.68 x10e6/uL (3.6-5.1); RED CELL DISTRIBUTION WIDTH 13.7 % (11.7-14.4)
[2020-08-11 07:59] LABS: ANION GAP 15.1 mmol/L (8-16); CREATININE, SERUM 3.17 mg/dL (0.57-1.11); POTASSIUM 3.1 mmol/L (3.5-5.1)
[2020-08-11 08:01] LABS: CALCIUM 6.9 mg/dL (8.4-10.2)
[2020-08-11 08:21] LABS: CHOL/HDL RATIO 3.3 (3.0-3.6)
[2020-08-11] MEDS: CYCLOBENZAPRINE HCL 10 MG TAB PO SCH ×2 (09:41→17:32)
[2020-08-11] MEDS: SODIUM BICARBONATE 650 MG TAB PO SCH ×2 (09:47→17:32)
[2020-08-11] MEDS: METOPROLOL SUCCINATE 25 MG TAB XL PO SCH (09:48)
[2020-08-11 10:32] LABS: LYMPHOCYTES % (MANUAL) 10 % (19-48); MONOCYTES % (MANUAL) 1 % (3.4-9.0); MYELOCYTES % (MANUAL) 1 % (0-0); NEUTROPHILS % (MANUAL) 85 % (40-74); PROMYELOCYTES % (MANUAL) 1 % (0-0); RBC MORPHOLOGY COMMENT NORMAL
[2020-08-11 10:33] LABS: PLATELET ESTIMATE ADEQUATE; PLATELET MORPHOLOGY COMMENT NORMAL; SMUDGE CELLS FEW
[2020-08-11] MEDS ORDERED: FENTANYL CITRATE/PF 100MCG/2 ML INJ IV PRN (11:45)
[2020-08-11] MEDS ORDERED: VANCOMYCIN 1GM/NS 250 ML 250 ML IV ONE (17:15)
[2020-08-11] MEDS: INSULIN GLARGINE 100 UNITS/ML VIAL SQ SCH (21:00)
[2020-08-11] MEDS: ATORVASTATIN 40 MG TAB PO SCH (21:20)
[2020-08-11] MEDS: QUETIAPINE FUMARATE 25 MG TAB PO SCH (21:20)
[2020-08-12] VITALS (9 sets, daily range): BP systolic 113–158; BP diastolic 55–96
[2020-08-12] MEDS ORDERED: CEFTRIAXONE SOD 1 GM/NS 50 ML 50 ML IV SCH (02:00)
[2020-08-12 05:52] LABS: BASOPHILS % 0.4 % (0.0-1.0); EOSINOPHILS % 0.4 % (0.0-6.0); HEMATOCRIT 27.1 % (34.2-44.1); LYMPHOCYTES # (AUTO) 1.3 (1.0-3.2); LYMPHOCYTES % 16.5 % (18.0-39.1); MEAN CORPUSCULAR HEMOGLOBIN 31.1 pg (28-32); MEAN CORPUSCULAR HGB CONC 33.2 g/dL (31-35); MEAN CORPUSCULAR VOLUME 93.8 fL (81-99); MONOCYTES # (AUTO) 0.3 (0.2-0.8); MONOCYTES % 4.3 % (4.4-11.3); NEUTROPHILS # (AUTO) 6.2 (2.1-6.9); NEUTROPHILS % 78.1 % (38.7-80.0); PLATELET COUNT 206 x10e3/uL (140-360); RED BLOOD COUNT 2.89 x10e6/uL (3.6-5.1); RED CELL DISTRIBUTION WIDTH 13.7 % (11.7-14.4)
[2020-08-12 06:07] LABS: ANION GAP 14.3 mmol/L (8-16); CREATININE, SERUM 3.56 mg/dL (0.57-1.11); POTASSIUM 3.3 mmol/L (3.5-5.1)
[2020-08-12 06:09] LABS: CALCIUM 6.7 mg/dL (8.4-10.2)
[2020-08-12] MEDS: TRAMADOL HCL 50 MG TAB PO PRN ×4 (06:32→18:36)
[2020-08-12] MEDS: ONDANSETRON HCL INJ 2MG/ML 2ML 2 MG/ML VIAL IV PRN ×3 (06:33→18:44)
[2020-08-12] MEDS: INSULIN REGULAR, HUMAN 100 UNIT/1 ML 3ML VIAL SQ SCH ×4 (07:30→20:42)
[2020-08-12] MEDS: CYCLOBENZAPRINE HCL 10 MG TAB PO SCH ×2 (09:14→16:44)
[2020-08-12] MEDS: METOPROLOL SUCCINATE 25 MG TAB XL PO SCH (09:14)
[2020-08-12] MEDS: SODIUM BICARBONATE 650 MG TAB PO SCH ×2 (09:14→16:43)
[2020-08-12] MEDS ORDERED: [UNRECOGNIZED DRUG - MIXTURE] INJ SCH (11:00)
[2020-08-12] MEDS ORDERED: SODIUM CHLORIDE 0.9% 250ML 250 ML ONE (20:26)
[2020-08-12] MEDS: ATORVASTATIN 40 MG TAB PO SCH (20:41)
[2020-08-12] MEDS: CEFTRIAXONE SOD 1 GM/NS 50 ML 50 ML IV SCH (20:41)
[2020-08-12] MEDS: QUETIAPINE FUMARATE 25 MG TAB PO SCH (20:42)
[2020-08-12] MEDS: INSULIN GLARGINE 100 UNITS/ML VIAL SQ SCH (20:48)
[2020-08-13] VITALS: BP 111/56
[2020-08-13 04:00] VITALS: BP 115/64
[2020-08-13] MEDS: INSULIN REGULAR, HUMAN 100 UNIT/1 ML 3ML VIAL SQ SCH ×4 (07:30→20:46)
[2020-08-13] MEDS: SODIUM BICARBONATE 650 MG TAB PO SCH ×2 (08:33→16:02)
[2020-08-13] MEDS: CYCLOBENZAPRINE HCL 10 MG TAB PO SCH ×2 (08:33→16:06)
[2020-08-13] MEDS: METOPROLOL SUCCINATE 25 MG TAB XL PO SCH (08:34)
[2020-08-13] MEDS: ONDANSETRON HCL INJ 2MG/ML 2ML 2 MG/ML VIAL IV PRN (08:36)
[2020-08-13] MEDS: TRAMADOL HCL 50 MG TAB PO PRN (08:36)
[2020-08-13 11:15] VITALS: BP 137/79
[2020-08-13] MEDS ORDERED: [UNRECOGNIZED DRUG - MIXTURE] INJ SCH (13:45)
[2020-08-13 15:29] VITALS: BP 148/61
[2020-08-13 20:00] VITALS: BP 137/68
[2020-08-13] MEDS: QUETIAPINE FUMARATE 25 MG TAB PO SCH (20:46)
[2020-08-13] MEDS: CEFTRIAXONE SOD 1 GM/NS 50 ML 50 ML IV SCH (20:46)
[2020-08-13] MEDS: ATORVASTATIN 40 MG TAB PO SCH (20:46)
[2020-08-13 20:49] VITALS: BP 137/68
[2020-08-13] MEDS: INSULIN GLARGINE 100 UNITS/ML VIAL SQ SCH (21:30)
[2020-08-14] VITALS (8 sets, daily range): BP systolic 92–136; BP diastolic 52–58
[2020-08-14] MEDS ORDERED: VANCOMYCIN HCL 1 GM in SODIUM CHLORIDE 0.9% 250ML 250 ML IV SCH ×4 (02:00)
[2020-08-14] MEDS: VANCOMYCIN 1GM/NS 250 ML 250 ML IV SCH (03:02)
[2020-08-14 07:33] LABS: BASOPHILS # (AUTO) 0.1 (0.0-0.1); BASOPHILS % 0.7 % (0.0-1.0); EOSINOPHILS # (AUTO) 0.2 (0.0-0.4); EOSINOPHILS % 2.8 % (0.0-6.0); HEMATOCRIT 27.4 % (34.2-44.1); HEMOGLOBIN 8.7 g/dL (12.0-16.0); LYMPHOCYTES # (AUTO) 1.5 (1.0-3.2); LYMPHOCYTES % 20.8 % (18.0-39.1); MEAN CORPUSCULAR HEMOGLOBIN 30.5 pg (28-32); MEAN CORPUSCULAR HGB CONC 31.8 g/dL (31-35); MEAN CORPUSCULAR VOLUME 96.1 fL (81-99); MONOCYTES # (AUTO) 0.5 (0.2-0.8); MONOCYTES % 6.5 % (4.4-11.3); NEUTROPHILS % 68.6 % (38.7-80.0); PLATELET COUNT 201 x10e3/uL (140-360); RED BLOOD COUNT 2.85 x10e6/uL (3.6-5.1)
[2020-08-14 08:20] LABS: ANION GAP 15.9 mmol/L (8-16); CREATININE, SERUM 3.59 mg/dL (0.57-1.11)
[2020-08-14] MEDS: INSULIN REGULAR, HUMAN 100 UNIT/1 ML 3ML VIAL SQ SCH ×4 (08:30→21:00)
[2020-08-14] MEDS: CYCLOBENZAPRINE HCL 10 MG TAB PO SCH ×2 (08:47→17:29)
[2020-08-14] MEDS: SODIUM BICARBONATE 650 MG TAB PO SCH ×2 (08:47→17:29)
[2020-08-14] MEDS: ONDANSETRON HCL INJ 2MG/ML 2ML 2 MG/ML VIAL IV PRN ×2 (08:47→15:00)
[2020-08-14] MEDS: TRAMADOL HCL 50 MG TAB PO PRN (08:47)
[2020-08-14] MEDS: METOPROLOL SUCCINATE 25 MG TAB XL PO SCH (08:48)
[2020-08-14 09:04] LABS: POTASSIUM 2.9 mmol/L (3.5-5.1)
[2020-08-14 09:05] LABS: CALCIUM 6.7 mg/dL (8.4-10.2)
[2020-08-14] MEDS ORDERED: POTASSIUM CHLORIDE 20MEQ/100ML 200 ML IV ONE (09:15)
[2020-08-14] MEDS ORDERED: POTASSIUM CHLORIDE 10MEQ EA PO NR (09:15)
[2020-08-14] MEDS ORDERED: [UNRECOGNIZED DRUG - MIXTURE] INJ PRN (17:00)
[2020-08-14] MEDS ORDERED: HEPARIN SOD (PORCINE) 5,000 UNIT/ML VIAL IV PRN (17:00)
[2020-08-14] MEDS ORDERED: SODIUM CHLORIDE 0.9% 1000ML 2,000 ML IV PRN (17:00)
[2020-08-14] MEDS ORDERED: HEPARIN SOD (PORCINE) 1000 UNIT/ML SDV IV PRN (17:00)
[2020-08-14] MEDS: ATORVASTATIN 40 MG TAB PO SCH (20:56)
[2020-08-14] MEDS: QUETIAPINE FUMARATE 25 MG TAB PO SCH (20:56)
[2020-08-14] MEDS: INSULIN GLARGINE 100 UNITS/ML VIAL SQ SCH (21:00)
[2020-08-15] VITALS (8 sets, daily range): BP systolic 110–123; BP diastolic 48–60
[2020-08-15] MEDS: INSULIN REGULAR, HUMAN 100 UNIT/1 ML 3ML VIAL SQ SCH ×4 (08:30→21:00)
[2020-08-15 08:59] LABS: BASOPHILS % 0.7 % (0.0-1.0); EOSINOPHILS # (AUTO) 0.2 (0.0-0.4); EOSINOPHILS % 3.3 % (0.0-6.0); HEMATOCRIT 25.4 % (34.2-44.1); HEMOGLOBIN 8.1 g/dL (12.0-16.0); LYMPHOCYTES # (AUTO) 1.8 (1.0-3.2); LYMPHOCYTES % 30.6 % (18.0-39.1); MEAN CORPUSCULAR HEMOGLOBIN 30.8 pg (28-32); MEAN CORPUSCULAR HGB CONC 31.9 g/dL (31-35); MEAN CORPUSCULAR VOLUME 96.6 fL (81-99); MONOCYTES # (AUTO) 0.3 (0.2-0.8); MONOCYTES % 5.5 % (4.4-11.3); NEUTROPHILS # (AUTO) 3.4 (2.1-6.9); NEUTROPHILS % 59.4 % (38.7-80.0); PLATELET COUNT 202 x10e3/uL (140-360); RED BLOOD COUNT 2.63 x10e6/uL (3.6-5.1); RED CELL DISTRIBUTION WIDTH 13.9 % (11.7-14.4)
[2020-08-15] MEDS: CYCLOBENZAPRINE HCL 10 MG TAB PO SCH ×2 (09:16→17:25)
[2020-08-15] MEDS: SODIUM BICARBONATE 650 MG TAB PO SCH ×2 (09:16→17:25)
[2020-08-15] MEDS: METOPROLOL SUCCINATE 25 MG TAB XL PO SCH (09:16)
[2020-08-15] MEDS: TRAMADOL HCL 50 MG TAB PO PRN ×2 (09:19→17:35)
[2020-08-15] MEDS: ONDANSETRON HCL INJ 2MG/ML 2ML 2 MG/ML VIAL IV PRN ×2 (09:20→17:35)
[2020-08-15 09:23] LABS: ANION GAP 12.2 mmol/L (8-16); CREATININE, SERUM 3.21 mg/dL (0.57-1.11); POTASSIUM 3.2 mmol/L (3.5-5.1)
[2020-08-15 09:26] LABS: CALCIUM 6.8 mg/dL (8.4-10.2)
[2020-08-15] MEDS: CALCIUM CARBONATE 500 MG CHEWABLE TABS PO SCH ×2 (09:57→17:25)
[2020-08-15] MEDS ORDERED: POTASSIUM CHLORIDE 20 MEQ TAB CR PO ONE (11:00)
[2020-08-15] MEDS ORDERED: EPOETIN ALFA-EPBX 10,000 UNIT/ML VIAL SC SCH (13:00)
[2020-08-15] MEDS: INSULIN GLARGINE 100 UNITS/ML VIAL SQ SCH (21:00)
[2020-08-15] MEDS: ATORVASTATIN 40 MG TAB PO SCH (21:19)
[2020-08-15] MEDS: QUETIAPINE FUMARATE 25 MG TAB PO SCH (21:19)
[2020-08-16] VITALS (9 sets, daily range): BP systolic 111–134; BP diastolic 49–61
[2020-08-16] MEDS: ONDANSETRON HCL INJ 2MG/ML 2ML 2 MG/ML VIAL IV PRN ×2 (07:23→17:08)
[2020-08-16] MEDS: CALCIUM CARBONATE 500 MG CHEWABLE TABS PO SCH ×2 (08:13→17:04)
[2020-08-16] MEDS: CYCLOBENZAPRINE HCL 10 MG TAB PO SCH ×2 (08:14→17:04)
[2020-08-16] MEDS: SODIUM BICARBONATE 650 MG TAB PO SCH ×2 (08:14→17:04)
[2020-08-16] MEDS: METOPROLOL SUCCINATE 25 MG TAB XL PO SCH (08:14)
[2020-08-16] MEDS: TRAMADOL HCL 50 MG TAB PO PRN ×3 (08:15→21:11)
[2020-08-16] MEDS: INSULIN REGULAR, HUMAN 100 UNIT/1 ML 3ML VIAL SQ SCH ×4 (08:20→21:00)
[2020-08-16] MEDS: INSULIN GLARGINE 100 UNITS/ML VIAL SQ SCH (21:00)
[2020-08-16] MEDS: ATORVASTATIN 40 MG TAB PO SCH (21:00)
[2020-08-16] MEDS: QUETIAPINE FUMARATE 25 MG TAB PO SCH (21:00)
[2020-08-17] MEDS: VANCOMYCIN 1GM/NS 250 ML 250 ML IV SCH (02:30)
[2020-08-17 05:09] VITALS: BP 101/65
[2020-08-17] MEDS ORDERED: ZOFRAN4 MG PO (06:55)
[2020-08-17 07:56] LABS: BASOPHILS # (AUTO) 0.1 (0.0-0.1); BASOPHILS % 0.8 % (0.0-1.0); EOSINOPHILS # (AUTO) 0.3 (0.0-0.4); EOSINOPHILS % 2.8 % (0.0-6.0); HEMATOCRIT 30.1 % (34.2-44.1); HEMOGLOBIN 9.4 g/dL (12.0-16.0); LYMPHOCYTES # (AUTO) 3.2 (1.0-3.2); LYMPHOCYTES % 36.4 % (18.0-39.1); MEAN CORPUSCULAR HEMOGLOBIN 30.9 pg (28-32); MEAN CORPUSCULAR HGB CONC 31.2 g/dL (31-35); MONOCYTES # (AUTO) 0.5 (0.2-0.8); MONOCYTES % 5.4 % (4.4-11.3); NEUTROPHILS # (AUTO) 4.8 (2.1-6.9); PLATELET COUNT 254 x10e3/uL (140-360); RED BLOOD COUNT 3.04 x10e6/uL (3.6-5.1); RED CELL DISTRIBUTION WIDTH 14.3 % (11.7-14.4)
[2020-08-17 08:02] VITALS: BP 113/55
[2020-08-17 08:13] VITALS: BP 113/55
[2020-08-17 08:15] LABS: ANION GAP 12.4 mmol/L (8-16); CALCIUM 7.4 mg/dL (8.4-10.2); CREATININE, SERUM 3.13 mg/dL (0.57-1.11); POTASSIUM 3.4 mmol/L (3.5-5.1)
[2020-08-17] MEDS: INSULIN REGULAR, HUMAN 100 UNIT/1 ML 3ML VIAL SQ SCH ×3 (08:30→15:38)
[2020-08-17] MEDS ORDERED: POTASSIUM CHLORIDE 10MEQ EA PO NR (09:00)
[2020-08-17] MEDS: CALCIUM CARBONATE 500 MG CHEWABLE TABS PO SCH (09:00)
[2020-08-17] MEDS: ONDANSETRON HCL INJ 2MG/ML 2ML 2 MG/ML VIAL IV PRN (09:10)
[2020-08-17] MEDS: METOPROLOL SUCCINATE 25 MG TAB XL PO SCH (09:10)
[2020-08-17] MEDS: TRAMADOL HCL 50 MG TAB PO PRN (09:10)
[2020-08-17] MEDS: SODIUM BICARBONATE 650 MG TAB PO SCH (09:10)
[2020-08-17] MEDS: CYCLOBENZAPRINE HCL 10 MG TAB PO SCH (09:10)
[2020-08-17 11:47] VITALS: BP 111/54
[2020-08-17] MEDS: VANCOMYCIN 1GM/NS 250 ML 250 ML IV ONE ×2 (12:57→13:50)
[2020-08-17] MEDS ORDERED: DOXYCYCLINE HY100 MG PO (14:10)
[2020-08-17 16:11] VITALS: BP 119/57
== END 2020-08-17 16:00 | disposition home or self-care (01) | DRG 919 ==
LOC: ER 22:37 → ERHOLD 08-11 01:49 → MED/SURG2 08-11 05:02 → OBSVTOIN 08-11 13:13
PROVIDERS: ADMIT Internal Medicine; ATTEND Internal Medicine
PROC: 3E1M39Z Irrigation of Peritoneal Cavity using Dialysate, Percutaneous Approach (ICD-10-PCS; principal; 2020-08-11)
DX: T85.71XA Infection and inflammatory reaction due to peritoneal dialysis catheter, initial encounter (principal); K65.9 Peritonitis, unspecified; N18.6 End stage renal disease; A41.2 Sepsis due to unspecified staphylococcus; N12 Tubulo-interstitial nephritis, not specified as acute or chronic; I13.11 Hypertensive heart and chronic kidney disease without heart failure, with stage 5 chronic kidney disease, or end stage renal disease; E11.22 Type 2 diabetes mellitus with diabetic chronic kidney disease; E87.6 Hypokalemia; B95.8 Unspecified staphylococcus as the cause of diseases classified elsewhere; Z99.2 Dependence on renal dialysis; E11.21 Type 2 diabetes mellitus with diabetic nephropathy; I25.10 Atherosclerotic heart disease of native coronary artery without angina pectoris; Z95.1 Presence of aortocoronary bypass graft; Z95.5 Presence of coronary angioplasty implant and graft; D86.9 Sarcoidosis, unspecified; G47.00 Insomnia, unspecified; Z87.891 Personal history of nicotine dependence; Z79.899 Other long term (current) drug therapy; I48.0 Paroxysmal atrial fibrillation; Z79.01 Long term (current) use of anticoagulants; Z20.822 Contact with and (suspected) exposure to COVID-19
CPT/HCPCS: 36415; 71045; 74176; 80048; 80053; 80061; 80202; 81001; 82948; 83036; 83605; 83880; 84484; 85007; 85025; 85027; 86705; 86706; 87040; 87070; 87086; 87205; 87340; 89051; 93005; 99284; J0696; J1815; J1817; J2405; J3370; J3480; J7050; J7120; J7121; U0002

== ENCOUNTER 2020-10-08 16:03 | Inpatient (IN) | payer MEDICARE, OTHER ==
[~2020-10-08] VITALS: Ht 167.6 cm; Wt 99.1 kg
[~2020-10-08 16:03] MED LIST changes: +DOXYCYCLINE HY100 MG PO; +LEVEMIR FL100 UNIT/1 SC; +ZOFRAN4 MG PO
[2020-10-08] MEDS ORDERED: ONDANSETRON HCL INJ 2MG/ML 2ML 2 MG/ML VIAL IV STA (16:08)
[2020-10-08] MEDS ORDERED: MORPHINE SULFATE INJ 4 MG/ML INJ 1ML IV STA (16:08)
[2020-10-08] MEDS ORDERED: SODIUM CHLORIDE 0.9% 1000ML 1,000 ML IV STA (16:08)
[2020-10-08 16:42] LABS: BASOPHILS # (AUTO) 0.1 (0.0-0.1); BASOPHILS % 0.4 % (0.0-1.0); EOSINOPHILS # (AUTO) 0.1 (0.0-0.4); EOSINOPHILS % 0.4 % (0.0-6.0); HEMATOCRIT 34.6 % (34.2-44.1); HEMOGLOBIN 11.4 g/dL (12.0-16.0); LYMPHOCYTES # (AUTO) 1.9 (1.0-3.2); LYMPHOCYTES % 13.6 % (18.0-39.1); MEAN CORPUSCULAR HEMOGLOBIN 30.2 pg (28-32); MEAN CORPUSCULAR HGB CONC 32.9 g/dL (31-35); MEAN CORPUSCULAR VOLUME 91.5 fL (81-99); MONOCYTES # (AUTO) 0.9 (0.2-0.8); MONOCYTES % 6.1 % (4.4-11.3); PLATELET COUNT 334 x10e3/uL (140-360); RED BLOOD COUNT 3.78 x10e6/uL (3.6-5.1); RED CELL DISTRIBUTION WIDTH 14.3 % (11.7-14.4)
[2020-10-08 16:53] LABS: ALBUMIN 1.6 g/dL (3.5-5.0); ALBUMIN/GLOBULIN RATIO 0.3 (0.8-2.0); CALCIUM 7.5 mg/dL (8.4-10.2); CREATININE, SERUM 3.44 mg/dL (0.57-1.11)
[2020-10-08] MEDS ORDERED: SODIUM CHLORIDE 0.9% 50ML 50 ML ONE (17:59)
[2020-10-08] MEDS ORDERED: IOPAMIDOL 370 MG/ML 200 ML INFUS..BTL INJ ONE (17:59)
[2020-10-08 18:11] LABS: CLARITY,URINE SL CLOUDY (CLEAR); COLOR,URINE YELLOW (YELLOW); KETONES,URINE NEGATIVE (NEGATIVE); LEUKOCYTE ESTERASE ,URINE NEGATIVE (NEGATIVE); NITRITE,URINE NEGATIVE (NEGATIVE); PROTEIN,URINE DIPSTICK 2+ (NEGATIVE); URINE UROBILINOGEN 0.2 mg/dL (0.2 - 1)
[2020-10-08 18:29] LABS: AMORPHOUS SEDIMENT,URINE MODERATE (FEW); BACTERIA,URINE FEW /HPF; EPITHELIAL CELLS,URINE FEW /LPF; WBC,URINE (MAN) 0-5 /HPF (0-5)
[2020-10-08] MEDS ORDERED: LEVOFLOXACIN 500MG/D5W 100ML 100 ML IV SCH (20:00)
[2020-10-08] MEDS ORDERED: LEVOFLOXACIN 500MG/D5W 100ML 100 ML IV ONE ×2 (20:15→20:23)
[2020-10-08] MEDS ORDERED: ONDANSETRON HCL INJ 2MG/ML 2ML 2 MG/ML VIAL ONE (20:23)
[2020-10-08] MEDS ORDERED: MORPHINE SULFATE INJ 2 MG/ML SYR ONE (20:23)
[2020-10-08] MEDS: ONDANSETRON HCL INJ 2MG/ML 2ML 2 MG/ML VIAL IV PRN (20:34)
[2020-10-08] MEDS: MORPHINE SULFATE INJ 2 MG/ML SYR IV PRN (20:34)
[2020-10-08] MEDS ORDERED: SODIUM CHLORIDE 0.9% 500ML 500 ML IV STA (21:01)
[2020-10-09] VITALS (9 sets, daily range): BP systolic 118–156; BP diastolic 51–59
[2020-10-09] MEDS ORDERED: SODIUM CHLORIDE 0.9% 250ML 250 ML ONE (00:34)
[2020-10-09] MEDS: METRONIDAZOLE 500MG/NS 100ML IV SCH ×2 (00:49→05:35)
[2020-10-09] MEDS: MORPHINE SULFATE INJ 2 MG/ML SYR IV PRN ×4 (01:00→11:45)
[2020-10-09] MEDS: ONDANSETRON HCL INJ 2MG/ML 2ML 2 MG/ML VIAL IV PRN ×5 (01:00→22:56)
[2020-10-09] MEDS ORDERED: CEFTRIAXONE SOD 1 GM/50 ML BAG IV SCH (05:45)
[2020-10-09 05:51] LABS: BASOPHILS # (AUTO) 0.1 (0.0-0.1); BASOPHILS % 0.5 % (0.0-1.0); EOSINOPHILS # (AUTO) 0.1 (0.0-0.4); EOSINOPHILS % 0.7 % (0.0-6.0); HEMATOCRIT 28.9 % (34.2-44.1); HEMOGLOBIN 9.2 g/dL (12.0-16.0); LYMPHOCYTES # (AUTO) 2.3 (1.0-3.2); MEAN CORPUSCULAR HEMOGLOBIN 30.5 pg (28-32); MEAN CORPUSCULAR HGB CONC 31.8 g/dL (31-35); MEAN CORPUSCULAR VOLUME 95.7 fL (81-99); MONOCYTES # (AUTO) 0.7 (0.2-0.8); MONOCYTES % 7.6 % (4.4-11.3); NEUTROPHILS # (AUTO) 6.1 (2.1-6.9); NEUTROPHILS % 65.8 % (38.7-80.0); PLATELET COUNT 202 x10e3/uL (140-360); RED BLOOD COUNT 3.02 x10e6/uL (3.6-5.1); RED CELL DISTRIBUTION WIDTH 14.6 % (11.7-14.4)
[2020-10-09] MEDS ORDERED: AZITHROMYCIN 500MG/NS 250 ML 125 ML IV ONE ×2 (06:00→08:00)
[2020-10-09 06:13] LABS: ALBUMIN 1.2 g/dL (3.5-5.0); ALBUMIN/GLOBULIN RATIO 0.3 (0.8-2.0); ANION GAP 13.1 mmol/L (8-16); CALCIUM 7.1 mg/dL (8.4-10.2); CREATININE, SERUM 3.4 mg/dL (0.57-1.11); POTASSIUM 3.1 mmol/L (3.5-5.1)
[2020-10-09] MEDS: CEFTRIAXONE SOD 1 GM in SODIUM CHLORIDE 0.9% 50ML 50 ML IV SCH (07:12)
[2020-10-09] MEDS: SODIUM BICARBONATE 650 MG TAB PO SCH ×2 (08:35→17:00)
[2020-10-09] MEDS: CYCLOBENZAPRINE HCL 10 MG TAB PO SCH ×2 (08:35→17:00)
[2020-10-09] MEDS: METOPROLOL SUCCINATE 25 MG TAB XL PO SCH (08:36)
[2020-10-09] MEDS ORDERED: NIFEDIPINE CR 30 MG TAB PO SCH (09:00)
[2020-10-09] MEDS ORDERED: POTASSIUM CHLORIDE 20 MEQ TAB CR PO ONE (13:50)
[2020-10-09] MEDS: METRONIDAZOLE 500MG/NS 100ML 100 ML IV SCH ×2 (14:00→21:56)
[2020-10-09] MEDS: MORPHINE SULFATE INJ 4 MG/ML INJ 1ML IV PRN ×2 (17:55→22:56)
[2020-10-09] MEDS: INSULIN GLARGINE 100 UNITS/ML VIAL SQ SCH (21:28)
[2020-10-09] MEDS: ATORVASTATIN 40 MG TAB PO SCH (21:56)
[2020-10-09] MEDS: QUETIAPINE FUMARATE 25 MG TAB PO SCH (21:56)
[2020-10-10] VITALS (8 sets, daily range): BP systolic 110–144; BP diastolic 54–63
[2020-10-10] MEDS: METRONIDAZOLE 500MG/NS 100ML 100 ML IV SCH ×3 (05:07→23:00)
[2020-10-10] MEDS: ONDANSETRON HCL INJ 2MG/ML 2ML 2 MG/ML VIAL IV PRN ×2 (05:07→23:20)
[2020-10-10] MEDS: MORPHINE SULFATE INJ 4 MG/ML INJ 1ML IV PRN ×4 (05:07→23:20)
[2020-10-10] MEDS ORDERED: AZITHROMYCIN 250MG/NS 100 ML 100 ML IV SCH (05:30)
[2020-10-10] MEDS: CEFTRIAXONE SOD 1 GM in SODIUM CHLORIDE 0.9% 50ML 50 ML IV SCH (06:00)
[2020-10-10 08:14] LABS: BASOPHILS # (AUTO) 0.1 (0.0-0.1); BASOPHILS % 0.4 % (0.0-1.0); EOSINOPHILS # (AUTO) 0.1 (0.0-0.4); EOSINOPHILS % 0.6 % (0.0-6.0); HEMATOCRIT 33.4 % (34.2-44.1); HEMOGLOBIN 10.5 g/dL (12.0-16.0); LYMPHOCYTES # (AUTO) 2.2 (1.0-3.2); LYMPHOCYTES % 18.5 % (18.0-39.1); MEAN CORPUSCULAR HEMOGLOBIN 30.4 pg (28-32); MEAN CORPUSCULAR HGB CONC 31.4 g/dL (31-35); MEAN CORPUSCULAR VOLUME 96.8 fL (81-99); MONOCYTES # (AUTO) 0.6 (0.2-0.8); MONOCYTES % 4.9 % (4.4-11.3); NEUTROPHILS % 75.1 % (38.7-80.0); PLATELET COUNT 280 x10e3/uL (140-360); RED BLOOD COUNT 3.45 x10e6/uL (3.6-5.1); RED CELL DISTRIBUTION WIDTH 15.1 % (11.7-14.4)
[2020-10-10] MEDS: SODIUM BICARBONATE 650 MG TAB PO SCH ×2 (08:35→17:12)
[2020-10-10] MEDS: CYCLOBENZAPRINE HCL 10 MG TAB PO SCH ×2 (08:35→17:12)
[2020-10-10] MEDS: METOPROLOL SUCCINATE 25 MG TAB XL PO SCH (08:36)
[2020-10-10] MEDS: INSULIN GLARGINE 100 UNITS/ML VIAL SQ SCH (21:36)
[2020-10-10] MEDS: QUETIAPINE FUMARATE 25 MG TAB PO SCH (23:00)
[2020-10-10] MEDS: ATORVASTATIN 40 MG TAB PO SCH (23:00)
[2020-10-11] VITALS: BP 140/55
[2020-10-11] MEDS: MORPHINE SULFATE INJ 4 MG/ML INJ 1ML IV PRN (03:40)
[2020-10-11] MEDS: ONDANSETRON HCL INJ 2MG/ML 2ML 2 MG/ML VIAL IV PRN (03:40)
[2020-10-11 04:00] VITALS: BP 124/60
[2020-10-11] MEDS: METRONIDAZOLE 500MG/NS 100ML 100 ML IV SCH (05:44)
[2020-10-11] MEDS: CEFTRIAXONE SOD 1 GM in SODIUM CHLORIDE 0.9% 50ML 50 ML IV SCH (05:44)
[2020-10-11 06:48] LABS: ALBUMIN 1.3 g/dL (3.5-5.0); ALBUMIN/GLOBULIN RATIO 0.3 (0.8-2.0); CALCIUM 7.4 mg/dL (8.4-10.2); CREATININE, SERUM 3.92 mg/dL (0.57-1.11); MAGNESIUM 1.5 MG/DL (1.3-2.1)
[2020-10-11 08:00] VITALS: BP 138/76
[2020-10-11] MEDS: SODIUM BICARBONATE 650 MG TAB PO SCH (08:46)
[2020-10-11] MEDS: METOPROLOL SUCCINATE 25 MG TAB XL PO SCH (08:47)
[2020-10-11] MEDS: CYCLOBENZAPRINE HCL 10 MG TAB PO SCH (08:47)
[2020-10-11] MEDS ORDERED: FLAGYL500 MG PO (09:28)
[2020-10-11] MEDS ORDERED: KEFLEX125 MG/5 M PO (09:28)
[2020-10-11 09:57] VITALS: BP 138/76
== END 2020-10-11 13:00 | disposition home or self-care (01) | DRG 391 ==
LOC: ER 16:09 → ERHOLD 21:14 → MED/SURG3 23:59 → OBSVTOIN 10-09 05:43
PROVIDERS: ADMIT Internal Medicine; ATTEND Internal Medicine
DX: K52.9 Noninfective gastroenteritis and colitis, unspecified (principal); N18.6 End stage renal disease; K52.1 Toxic gastroenteritis and colitis; I13.11 Hypertensive heart and chronic kidney disease without heart failure, with stage 5 chronic kidney disease, or end stage renal disease; R18.8 Other ascites; E87.1 Hypo-osmolality and hyponatremia; A04.9 Bacterial intestinal infection, unspecified; I25.10 Atherosclerotic heart disease of native coronary artery without angina pectoris; I48.0 Paroxysmal atrial fibrillation; Z79.01 Long term (current) use of anticoagulants; E11.22 Type 2 diabetes mellitus with diabetic chronic kidney disease; Z99.2 Dependence on renal dialysis; Z79.899 Other long term (current) drug therapy; E66.9 Obesity, unspecified; Z68.35 Body mass index [BMI] 35.0-35.9, adult; D86.9 Sarcoidosis, unspecified; Z87.891 Personal history of nicotine dependence; F41.1 Generalized anxiety disorder; M85.80 Other specified disorders of bone density and structure, unspecified site; Z95.1 Presence of aortocoronary bypass graft; Z20.822 Contact with and (suspected) exposure to COVID-19; E87.6 Hypokalemia; T36.8X5A Adverse effect of other systemic antibiotics, initial encounter
CPT/HCPCS: 36415; 71046; 74177; 80053; 81001; 82550; 82553; 82948; 83605; 83690; 83735; 83880; 84484; 85025; 87040; 93005; 99284; G0378; J0456; J0696; J1956; J2270; J2405; J7030; J7040; J7050; Q9967; U0002

== ENCOUNTER 2022-06-13 22:30 | Emergency (ER) | payer MEDICARE, OTHER ==
[~2022-06-13] VITALS: Ht 167.6 cm; Wt 98.9 kg
[~2022-06-13 22:30] MED LIST changes: +FLAGYL500 MG PO; +KEFLEX125 MG/5 M PO
[2022-06-13] MEDS ORDERED: ALBUTEROL/IPRATROPIUM 3 ML NEB NEB ONE (23:00)
[2022-06-13 23:02] LABS: BASOPHILS % 0.8 % (0.0-1.0); EOSINOPHILS # (AUTO) 0.2 (0.0-0.4); EOSINOPHILS % 2.9 % (0.0-6.0); HEMATOCRIT 33.8 % (34.2-44.1); LYMPHOCYTES # (AUTO) 1.5 (1.0-3.2); LYMPHOCYTES % 28.8 % (18.0-39.1); MEAN CORPUSCULAR HEMOGLOBIN 33.6 pg (28-32); MEAN CORPUSCULAR HGB CONC 32.5 g/dL (31-35); MEAN CORPUSCULAR VOLUME 103.4 fL (81-99); MONOCYTES # (AUTO) 0.3 (0.2-0.8); MONOCYTES % 5.9 % (4.4-11.3); NEUTROPHILS # (AUTO) 3.1 (2.1-6.9); NEUTROPHILS % 61.4 % (38.7-80.0); PLATELET COUNT 168 x10e3/uL (140-360); RED BLOOD COUNT 3.27 x10e6/uL (3.6-5.1); RED CELL DISTRIBUTION WIDTH 14.7 % (11.7-14.4)
[2022-06-13 23:21] LABS: ALBUMIN 3.7 g/dL (3.5-5.0); ALBUMIN/GLOBULIN RATIO 0.8 (0.8-2.0); ANION GAP 15.4 mmol/L (8-16); CALCIUM 8.9 mg/dL (8.4-10.2); CREATININE, SERUM 2.55 mg/dL (0.57-1.11); POTASSIUM 3.4 mmol/L (3.5-5.1)
[2022-06-13] MEDS ORDERED: PROVENTIL HFA6.7 GM INH (23:56)
[2022-06-13] MEDS ORDERED: AZITHROMYCIN250 MG PO (23:56)
[2022-06-14 00:50] VITALS: BP 169/62
== END 2022-06-14 00:30 | disposition home or self-care (01) ==
LOC: ER 22:51
DX: R06.02 Shortness of breath (principal); J20.9 Acute bronchitis, unspecified; R06.2 Wheezing; I12.0 Hypertensive chronic kidney disease with stage 5 chronic kidney disease or end stage renal disease; E11.22 Type 2 diabetes mellitus with diabetic chronic kidney disease; N18.6 End stage renal disease; Z99.2 Dependence on renal dialysis; I25.10 Atherosclerotic heart disease of native coronary artery without angina pectoris; D64.9 Anemia, unspecified; E78.5 Hyperlipidemia, unspecified; I25.2 Old myocardial infarction; Z20.822 Contact with and (suspected) exposure to COVID-19; R94.31 Abnormal electrocardiogram [ECG] [EKG]
CPT/HCPCS: 36415; 71045; 80053; 83880; 85025; 93005; 94640; 94799; 99284; U0002

== ENCOUNTER 2022-09-04 11:17 | Emergency (ER) | payer MEDICARE, OTHER ==
[~2022-09-04] VITALS: Ht 167.6 cm; Wt 98.9 kg
[~2022-09-04 11:17] MED LIST changes: +AZITHROMYCIN250 MG PO; +PROVENTIL HFA6.7 GM INH
[2022-09-04] MEDS ORDERED: ENALAPRILAT IV INJ 1.25 MG/ML VIAL IV STA (12:53)
[2022-09-04 13:35] LABS: BASOPHILS # (AUTO) 0.1 (0.0-0.1); BASOPHILS % 0.8 % (0.0-1.0); EOSINOPHILS # (AUTO) 0.3 (0.0-0.4); EOSINOPHILS % 3.8 % (0.0-6.0); HEMATOCRIT 32.2 % (34.2-44.1); HEMOGLOBIN 10.4 g/dL (12.0-16.0); LYMPHOCYTES # (AUTO) 1.4 (1.0-3.2); LYMPHOCYTES % 20.3 % (18.0-39.1); MEAN CORPUSCULAR HEMOGLOBIN 33.4 pg (28-32); MEAN CORPUSCULAR HGB CONC 32.3 g/dL (31-35); MEAN CORPUSCULAR VOLUME 103.5 fL (81-99); MONOCYTES # (AUTO) 0.4 (0.2-0.8); MONOCYTES % 6.3 % (4.4-11.3); NEUTROPHILS # (AUTO) 4.5 (2.1-6.9); PLATELET COUNT 154 x10e3/uL (140-360); RED BLOOD COUNT 3.11 x10e6/uL (3.6-5.1); RED CELL DISTRIBUTION WIDTH 15.7 % (11.7-14.4)
[2022-09-04 13:55] LABS: PROTHROMBIN TIME 13.4 seconds (11.9-14.5)
[2022-09-04 13:56] LABS: PARTIAL THROMBOPLASTIN TIME 36.2 seconds (23.8-35.5)
[2022-09-04 13:57] LABS: ALBUMIN 3.5 g/dL (3.5-5.0); ALBUMIN/GLOBULIN RATIO 0.8 (0.8-2.0); ANION GAP 16.6 mmol/L (8-16); CALCIUM 9.5 mg/dL (8.4-10.2); CREATININE, SERUM 4.72 mg/dL (0.57-1.11); MAGNESIUM 1.8 MG/DL (1.3-2.1); POTASSIUM 3.6 mmol/L (3.5-5.1)
[2022-09-04] MEDS ORDERED: ENALAPRILAT IV INJ 1.25 MG/ML VIAL IV ONE (14:00)
[2022-09-04 14:04] LABS: CREATINE KINASE MB 1.9 ng/mL (0-5.0)
[2022-09-04] MEDS ORDERED: ENALAPRILAT IV INJ 1.25 MG/ML VIAL ONE (14:06)
[2022-09-04] MEDS ORDERED: NIFEDIPINE 10 MG CAP PO STA (14:22)
[2022-09-04] MEDS ORDERED: ACETAMINOPHEN 325 MG TAB PO ONE (14:45)
[2022-09-04] MEDS ORDERED: NIFEDIPINE10 MG PO (16:26)
[2022-09-04] MEDS ORDERED: BENZONATATE100 MG PO (16:26)
[2022-09-04 16:38] VITALS: BP 149/66
== END 2022-09-04 16:39 | disposition home or self-care (01) ==
LOC: ER 11:26
DX: I16.0 Hypertensive urgency (principal); E11.22 Type 2 diabetes mellitus with diabetic chronic kidney disease; I12.0 Hypertensive chronic kidney disease with stage 5 chronic kidney disease or end stage renal disease; N18.6 End stage renal disease; I25.2 Old myocardial infarction; I25.810 Atherosclerosis of coronary artery bypass graft(s) without angina pectoris; R51.9 Headache, unspecified; R05.9 Cough, unspecified; Z20.822 Contact with and (suspected) exposure to COVID-19; Z88.8 Allergy status to other drugs, medicaments and biological substances; Z99.2 Dependence on renal dialysis; Z79.4 Long term (current) use of insulin; Z79.899 Other long term (current) drug therapy; Z95.1 Presence of aortocoronary bypass graft
CPT/HCPCS: 36415; 70450; 71045; 80053; 82550; 82553; 82948; 83735; 83880; 84484; 85025; 85610; 85730; 93005; 99284; U0002

== ENCOUNTER 2022-11-12 13:53 | Emergency (ER) | payer MEDICARE, OTHER ==
[~2022-11-12] VITALS: Ht 167.6 cm; Wt 98.9 kg
[~2022-11-12 13:53] MED LIST changes: +BENZONATATE100 MG PO; +NIFEDIPINE10 MG PO
[2022-11-12] MEDS ORDERED: HYDROCODONE/APAP 5MG-325MG TAB PO ONE (16:15)
[2022-11-12] MEDS ORDERED: ONDANSETRON HCL 4 MG ORAL DISINTEGRATING TAB PO ONE (16:15)
[2022-11-12] MEDS ORDERED: CYCLOBENZAPRINE5 MG PO (18:30)
== END 2022-11-12 18:35 | disposition home or self-care (01) ==
LOC: ER 14:11
DX: M54.2 Cervicalgia (principal); I12.0 Hypertensive chronic kidney disease with stage 5 chronic kidney disease or end stage renal disease; E11.22 Type 2 diabetes mellitus with diabetic chronic kidney disease; N18.6 End stage renal disease; Z99.2 Dependence on renal dialysis; E78.5 Hyperlipidemia, unspecified; D64.9 Anemia, unspecified; I25.2 Old myocardial infarction; Z95.1 Presence of aortocoronary bypass graft
CPT/HCPCS: 72125; 99283; Q0162

== ENCOUNTER 2022-11-13 23:05 | Emergency (ER) | payer MEDICARE, OTHER ==
[~2022-11-13] VITALS: Ht 167.6 cm; Wt 98.9 kg
[2022-11-13] MEDS ORDERED: Morphine 4mg INJECTION 4 MG/ML INJ IM STA (23:13)
[2022-11-13] MEDS ORDERED: METHYLPREDNISOLONE SOD SUCC 125 MG/2ML VIAL IM STA (23:13)
[2022-11-13] MEDS ORDERED: ONDANSETRON HCL 4 MG ORAL DISINTEGRATING TAB PO ONE (23:45)
[2022-11-14] MEDS ORDERED: ACETAMINOPHEN-1 EAC4 PO (00:24)
[2022-11-15] MEDS ORDERED: ONDANSETRON ODT4 MG PO (17:07)
== END 2022-11-14 00:27 | disposition home or self-care (01) ==
LOC: ER 23:11
DX: M54.2 Cervicalgia (principal); M54.6 Pain in thoracic spine; G89.29 Other chronic pain; I12.0 Hypertensive chronic kidney disease with stage 5 chronic kidney disease or end stage renal disease; E11.22 Type 2 diabetes mellitus with diabetic chronic kidney disease; N18.6 End stage renal disease; Z99.2 Dependence on renal dialysis; E78.5 Hyperlipidemia, unspecified; I25.10 Atherosclerotic heart disease of native coronary artery without angina pectoris; I25.2 Old myocardial infarction; Z86.73 Personal history of transient ischemic attack (TIA), and cerebral infarction without residual deficits
CPT/HCPCS: 72070; 99283; J2270; J2930; Q0162

== ENCOUNTER 2022-11-15 15:38 | Emergency (ER) | payer MEDICARE, OTHER ==
[~2022-11-15] VITALS: Ht 167.6 cm; Wt 98.9 kg
[~2022-11-15 15:38] MED LIST changes: +ACETAMINOPHEN-1 EAC4 PO
[2022-11-15] MEDS ORDERED: LACTATED RINGER'S 1,000 ML IV ONE (16:00)
[2022-11-15 16:15] LABS: BASOPHILS % 0.7 % (0.0-1.0); EOSINOPHILS # (AUTO) 0.2 (0.0-0.4); EOSINOPHILS % 2.6 % (0.0-6.0); HEMOGLOBIN 10.5 g/dL (12.0-16.0); LYMPHOCYTES # (AUTO) 1.4 (1.0-3.2); LYMPHOCYTES % 22.6 % (18.0-39.1); MEAN CORPUSCULAR HEMOGLOBIN 32.7 pg (28-32); MEAN CORPUSCULAR HGB CONC 31.8 g/dL (31-35); MEAN CORPUSCULAR VOLUME 102.8 fL (81-99); MONOCYTES # (AUTO) 0.3 (0.2-0.8); MONOCYTES % 4.6 % (4.4-11.3); NEUTROPHILS # (AUTO) 4.2 (2.1-6.9); NEUTROPHILS % 69.3 % (38.7-80.0); PLATELET COUNT 123 x10e3/uL (140-360); RED BLOOD COUNT 3.21 x10e6/uL (3.6-5.1); RED CELL DISTRIBUTION WIDTH 15.1 % (11.7-14.4)
[2022-11-15 16:37] LABS: ANION GAP 17.5 mmol/L (8-16); CALCIUM 8.7 mg/dL (8.4-10.2); CREATININE, SERUM 5.02 mg/dL (0.57-1.11); POTASSIUM 3.5 mmol/L (3.5-5.1)
[2022-11-15] MEDS ORDERED: ONDANSETRON HCL INJ 2MG/ML 2ML 2 MG/ML VIAL IV STA (16:39)
[2022-11-15] MEDS ORDERED: ONDANSETRON ODT4 MG PO (17:07)
== END 2022-11-15 18:05 | disposition home or self-care (01) ==
LOC: ER 16:00
DX: R42 Dizziness and giddiness (principal); M54.2 Cervicalgia; T50.995A Adverse effect of other drugs, medicaments and biological substances, initial encounter; I12.0 Hypertensive chronic kidney disease with stage 5 chronic kidney disease or end stage renal disease; E11.22 Type 2 diabetes mellitus with diabetic chronic kidney disease; E11.65 Type 2 diabetes mellitus with hyperglycemia; N18.6 End stage renal disease; Z99.2 Dependence on renal dialysis; D64.9 Anemia, unspecified; E78.5 Hyperlipidemia, unspecified; I25.2 Old myocardial infarction; Z95.1 Presence of aortocoronary bypass graft; Z86.73 Personal history of transient ischemic attack (TIA), and cerebral infarction without residual deficits
CPT/HCPCS: 36415; 80048; 82948; 85025; 99284; J2405

== ENCOUNTER 2022-11-18 18:48 | Inpatient (IN) | payer MEDICARE, OTHER ==
[~2022-11-18] VITALS: Ht 167.6 cm; Wt 98.9 kg
[~2022-11-18 18:48] MED LIST changes: +ONDANSETRON ODT4 MG PO
[2022-11-18] MEDS ORDERED: SODIUM CHLORIDE FLUSH 10 ML SYR INJ PRN (20:15)
[2022-11-18] MEDS: ONDANSETRON HCL INJ 2MG/ML 2ML 2 MG/ML VIAL IV PRN (22:51)
[2022-11-18] MEDS: Morphine 2mg Syringe 2 MG/ML SYR IV PRN (22:58)
[2022-11-18] MEDS ORDERED: GABAPENTIN300 MG PO (23:16)
[2022-11-18] MEDS ORDERED: LISINOPRIL40 MG PO (23:16)
[2022-11-18] MEDS ORDERED: ASPIRIN81 MG PO (23:17)
[2022-11-18] MEDS ORDERED: CLOPIDOGREL75 MG PO (23:17)
[2022-11-18] MEDS ORDERED: CARVEDILOL6.25 MG PO (23:17)
[2022-11-18] MEDS ORDERED: ATORVASTATIN CA80 MG PO (23:17)
[2022-11-18] MEDS ORDERED: CIPROFLOXACIN250 MG PO (23:17)
[2022-11-18] MEDS ORDERED: BASAGLAR K100 UNIT/1 SQ (23:25)
[2022-11-18 23:41] VITALS: BP 142/84; PULSE 65; RESP 18; TEMP 98; O2SAT 97
[2022-11-18 23:45] VITALS: BP 142/84; PULSE 65; RESP 18; TEMP 98; O2SAT 97
[2022-11-19 00:28] VITALS: BP 179/69; PULSE 67; RESP 17; TEMP 98.1; O2SAT 98
[2022-11-19] MEDS: ONDANSETRON HCL INJ 2MG/ML 2ML 2 MG/ML VIAL IV PRN ×5 (03:52→20:43)
[2022-11-19] MEDS: Morphine 2mg Syringe 2 MG/ML SYR IV PRN ×5 (03:52→20:43)
[2022-11-19 04:51] VITALS: BP 132/54; PULSE 57; RESP 17; TEMP 98.9; O2SAT 94
[2022-11-19 07:59] VITALS: BP 172/53; PULSE 57; RESP 18; TEMP 98; O2SAT 90
[2022-11-19 14:40] LABS: BASOPHILS # (AUTO) 0.1 (0.0-0.1); BASOPHILS % 1.4 % (0.0-1.0); EOSINOPHILS # (AUTO) 0.2 (0.0-0.4); EOSINOPHILS % 2.6 % (0.0-6.0); HEMATOCRIT 37.3 % (34.2-44.1); HEMOGLOBIN 11.6 g/dL (12.0-16.0); LYMPHOCYTES # (AUTO) 1.2 (1.0-3.2); LYMPHOCYTES % 20.5 % (18.0-39.1); MEAN CORPUSCULAR HEMOGLOBIN 32.7 pg (28-32); MEAN CORPUSCULAR HGB CONC 31.1 g/dL (31-35); MEAN CORPUSCULAR VOLUME 105.1 fL (81-99); MONOCYTES # (AUTO) 0.5 (0.2-0.8); MONOCYTES % 7.9 % (4.4-11.3); NEUTROPHILS % 67.4 % (38.7-80.0); PLATELET COUNT 110 x10e3/uL (140-360); RED BLOOD COUNT 3.55 x10e6/uL (3.6-5.1); RED CELL DISTRIBUTION WIDTH 15.2 % (11.7-14.4)
[2022-11-19 14:59] LABS: ALBUMIN 3.6 g/dL (3.5-5.0); ALBUMIN/GLOBULIN RATIO 0.9 (0.8-2.0); ANION GAP 17.7 mmol/L (8-16); CALCIUM 8.8 mg/dL (8.4-10.2); CREATININE, SERUM 4.75 mg/dL (0.57-1.11); POTASSIUM 3.7 mmol/L (3.5-5.1)
[2022-11-19 15:04] LABS: PHOSPHORUS 4.2 MG/DL (2.3-4.7)
[2022-11-19 15:56] VITALS: BP 159/58; PULSE 114; RESP 18; TEMP 97.9; O2SAT 93
[2022-11-19 20:00] VITALS: BP 187/85; PULSE 58; RESP 18; TEMP 98.1; O2SAT 95
[2022-11-19 20:45] VITALS: BP 187/85; PULSE 58; RESP 18; TEMP 98.1; O2SAT 95
[2022-11-20] VITALS (9 sets, daily range): BP systolic 152–184; BP diastolic 63–89; PULSE 52–97; RESP 18–20; TEMP 97.8–98.4; O2SAT 92–100
[2022-11-20] MEDS: Morphine 2mg Syringe 2 MG/ML SYR IV PRN ×3 (01:07→20:56)
[2022-11-20] MEDS: ONDANSETRON HCL INJ 2MG/ML 2ML 2 MG/ML VIAL IV PRN ×3 (01:07→20:56)
[2022-11-20] MEDS ORDERED: ALBUTEROL SULFATE HFA 8GM INHALATION AEROSOL INH PRN (14:30)
[2022-11-20] MEDS: CARVEDILOL 3.125 MG TAB PO SCH (16:21)
[2022-11-20] MEDS: GABAPENTIN 300 MG CAP PO SCH (16:21)
[2022-11-20] MEDS: ASPIRIN 81 MG CHEW TAB PO SCH (16:22)
[2022-11-20] MEDS: METOPROLOL SUCCINATE 25 MG TAB XL PO SCH (16:22)
[2022-11-20] MEDS: CLOPIDOGREL BISULFATE 75 MG TAB PO SCH (16:22)
[2022-11-20] MEDS: ATORVASTATIN 40 MG TAB PO SCH (20:55)
[2022-11-21] VITALS (9 sets, daily range): BP systolic 160–198; BP diastolic 61–83; PULSE 51–60; RESP 18–21; TEMP 97.3–98.2; O2SAT 95–99
[2022-11-21] MEDS: Morphine 2mg Syringe 2 MG/ML SYR IV PRN ×3 (01:10→14:05)
[2022-11-21 08:41] LABS: BASOPHILS # (AUTO) 0.1 (0.0-0.1); BASOPHILS % 0.9 % (0.0-1.0); EOSINOPHILS # (AUTO) 0.2 (0.0-0.4); HEMOGLOBIN 11.4 g/dL (12.0-16.0); LYMPHOCYTES # (AUTO) 1.2 (1.0-3.2); LYMPHOCYTES % 21.3 % (18.0-39.1); MEAN CORPUSCULAR HEMOGLOBIN 32.6 pg (28-32); MEAN CORPUSCULAR HGB CONC 31.7 g/dL (31-35); MEAN CORPUSCULAR VOLUME 102.9 fL (81-99); MONOCYTES # (AUTO) 0.5 (0.2-0.8); MONOCYTES % 7.9 % (4.4-11.3); NEUTROPHILS # (AUTO) 3.8 (2.1-6.9); NEUTROPHILS % 66.7 % (38.7-80.0); PLATELET COUNT 95 x10e3/uL (140-360); RED CELL DISTRIBUTION WIDTH 15.3 % (11.7-14.4)
[2022-11-21] MEDS: CARVEDILOL 3.125 MG TAB PO SCH ×2 (08:54→17:12)
[2022-11-21] MEDS: GABAPENTIN 300 MG CAP PO SCH (08:55)
[2022-11-21] MEDS: METOPROLOL SUCCINATE 25 MG TAB XL PO SCH (08:55)
[2022-11-21 08:58] LABS: ANION GAP 15.3 mmol/L (8-16); CALCIUM 8.6 mg/dL (8.4-10.2); CREATININE, SERUM 5.75 mg/dL (0.57-1.11); POTASSIUM 3.3 mmol/L (3.5-5.1)
[2022-11-21] MEDS ORDERED: SODIUM CHLORIDE 0.9% 1000ML 2,000 ML ONE (09:58)
[2022-11-21] MEDS ORDERED: SODIUM CHLORIDE 0.9% 1000ML 2,000 ML IV PRN (10:45)
[2022-11-21] MEDS: ONDANSETRON HCL INJ 2MG/ML 2ML 2 MG/ML VIAL IV PRN (14:04)
[2022-11-21] MEDS ORDERED: ACETAMINOPHEN/CODEINE 300MG - 30MG TAB PO PRN (15:30)
[2022-11-21] MEDS: ATORVASTATIN 40 MG TAB PO SCH (23:33)
[2022-11-22 00:41] VITALS: BP 186/69; PULSE 57; RESP 18; TEMP 98.2; O2SAT 97
[2022-11-22] MEDS ORDERED: CARVEDILOL 12.5 MG TAB PO ONE (01:00)
[2022-11-22] MEDS: ACETAMINOPHEN 325 MG TAB PO PRN ×2 (01:35→08:58)
[2022-11-22 04:42] VITALS: BP 168/59; PULSE 51; RESP 17; TEMP 97.9; O2SAT 96
[2022-11-22 06:01] LABS: BASOPHILS % 0.9 % (0.0-1.0); EOSINOPHILS # (AUTO) 0.1 (0.0-0.4); HEMATOCRIT 32.5 % (34.2-44.1); HEMOGLOBIN 10.4 g/dL (12.0-16.0); LYMPHOCYTES # (AUTO) 1.1 (1.0-3.2); LYMPHOCYTES % 22.9 % (18.0-39.1); MEAN CORPUSCULAR HEMOGLOBIN 32.8 pg (28-32); MEAN CORPUSCULAR VOLUME 102.5 fL (81-99); MONOCYTES # (AUTO) 0.4 (0.2-0.8); MONOCYTES % 8.6 % (4.4-11.3); NEUTROPHILS % 64.4 % (38.7-80.0); PLATELET COUNT 85 x10e3/uL (140-360); RED BLOOD COUNT 3.17 x10e6/uL (3.6-5.1); RED CELL DISTRIBUTION WIDTH 14.9 % (11.7-14.4)
[2022-11-22 06:45] LABS: ANION GAP 13.4 mmol/L (8-16); CALCIUM 8.4 mg/dL (8.4-10.2); CREATININE, SERUM 4.66 mg/dL (0.57-1.11); POTASSIUM 3.4 mmol/L (3.5-5.1)
[2022-11-22 08:00] VITALS: BP 148/65; PULSE 50; RESP 20; TEMP 97.7; O2SAT 98
[2022-11-22] MEDS: CARVEDILOL 3.125 MG TAB PO SCH (08:51)
[2022-11-22] MEDS: CLOPIDOGREL BISULFATE 75 MG TAB PO SCH (08:51)
[2022-11-22] MEDS: ASPIRIN 81 MG CHEW TAB PO SCH (08:51)
[2022-11-22] MEDS: GABAPENTIN 300 MG CAP PO SCH (08:52)
[2022-11-22] MEDS ORDERED: LISINOPRIL 20 MG TAB PO SCH (09:00)
[2022-11-22] MEDS ORDERED: NON-FORMULARY MEDICATION (Lisinopril 40 MG) PO SCH (09:00)
[2022-11-22 09:40] VITALS: BP 148/65; PULSE 52; RESP 20; TEMP 97.7; O2SAT 98
== END 2022-11-22 10:57 | disposition home or self-care (01) | DRG 551 ==
LOC: ER 18:55 → ERHOLD 20:10 → MED/SURG3 22:01 → OBSVTOIN 11-20 13:12
PROVIDERS: ADMIT Internal Medicine; ATTEND Internal Medicine
PROC: 5A1D70Z Performance of Urinary Filtration, Intermittent, Less than 6 Hours Per Day (ICD-10-PCS; principal; 2022-11-21)
DX: M48.02 Spinal stenosis, cervical region (principal); N18.6 End stage renal disease; I13.2 Hypertensive heart and chronic kidney disease with heart failure and with stage 5 chronic kidney disease, or end stage renal disease; I50.9 Heart failure, unspecified; E11.22 Type 2 diabetes mellitus with diabetic chronic kidney disease; D63.1 Anemia in chronic kidney disease; G89.29 Other chronic pain; E78.2 Mixed hyperlipidemia; E11.69 Type 2 diabetes mellitus with other specified complication; I25.10 Atherosclerotic heart disease of native coronary artery without angina pectoris; Z99.2 Dependence on renal dialysis; I25.2 Old myocardial infarction; Z95.1 Presence of aortocoronary bypass graft; Z79.4 Long term (current) use of insulin; Z86.73 Personal history of transient ischemic attack (TIA), and cerebral infarction without residual deficits; Z90.49 Acquired absence of other specified parts of digestive tract; Z79.82 Long term (current) use of aspirin
CPT/HCPCS: 0223U; 36415; 72141; 80048; 80053; 82948; 83735; 84100; 85025; 86706; 87340; 94799; 99283; G0378; J2270; J2405; J7030

== ENCOUNTER 2023-04-30 22:22 | Inpatient (IN) | payer MEDICARE, OTHER ==
[~2023-04-30] VITALS: Ht 167.6 cm; Wt 98.9 kg
[~2023-04-30 22:22] MED LIST changes: +ASPIRIN81 MG PO; +ATORVASTATIN CA80 MG PO; +BASAGLAR K100 UNIT/1 SQ; +CARVEDILOL3.125 MG PO; +CARVEDILOL6.25 MG PO; +CIPROFLOXACIN250 MG PO; +CLOPIDOGREL75 MG PO; +COREG12.5 MG PO; +GABAPENTIN300 MG PO; +LISINOPRIL40 MG PO; +MELOXICAM7.5 MG PO; +TYLENOL 3 PO
[2023-04-30 23:01] LABS: BASOPHILS # (AUTO) 0.1 (0.0-0.1); BASOPHILS % 1.9 % (0.0-1.0); EOSINOPHILS # (AUTO) 0.1 (0.0-0.4); EOSINOPHILS % 3.8 % (0.0-6.0); HEMATOCRIT 32.8 % (34.2-44.1); HEMOGLOBIN 10.8 g/dL (12.0-16.0); LYMPHOCYTES # (AUTO) 1.1 (1.0-3.2); LYMPHOCYTES % 28.2 % (18.0-39.1); MEAN CORPUSCULAR HGB CONC 32.9 g/dL (31-35); MONOCYTES # (AUTO) 0.2 (0.2-0.8); MONOCYTES % 6.5 % (4.4-11.3); NEUTROPHILS # (AUTO) 2.2 (2.1-6.9); NEUTROPHILS % 59.3 % (38.7-80.0); PLATELET COUNT 98 x10e3/uL (140-360); RED BLOOD COUNT 3.38 x10e6/uL (3.6-5.1); RED CELL DISTRIBUTION WIDTH 14.7 % (11.7-14.4); WHITE BLOOD COUNT 3.72 x10e3/uL (4.8-10.8)
[2023-04-30 23:07] LABS: PROTHROMBIN TIME 13.8 seconds (11.9-14.5)
[2023-04-30 23:08] LABS: PARTIAL THROMBOPLASTIN TIME 33.3 seconds (23.8-35.5)
[2023-04-30 23:16] LABS: ALBUMIN 3.4 g/dL (3.5-5.0); ALBUMIN/GLOBULIN RATIO 0.8 (0.8-2.0); ANION GAP 13.8 mmol/L (8-16); CREATININE, SERUM 4.12 mg/dL (0.57-1.11); POTASSIUM 3.8 mmol/L (3.5-5.1)
[2023-05-01] VITALS (11 sets, daily range): BP systolic 118–175; BP diastolic 54–87; PULSE 59–85; RESP 17–20; TEMP 97.6–98.3; O2SAT 97–100
[2023-05-01] MEDS ORDERED: CLONIDINE HCL 0.3 MG TAB PO STA (00:37)
[2023-05-01] MEDS: ONDANSETRON HCL INJ 2MG/ML 2ML 2 MG/ML VIAL IV PRN ×4 (00:49→15:20)
[2023-05-01] MEDS: Morphine 4mg INJECTION 4 MG/ML INJ IV PRN ×3 (00:49→18:48)
[2023-05-01] MEDS ORDERED: SODIUM CHLORIDE 0.9% 250ML 250 ML ONE (05:18)
[2023-05-01] MEDS ORDERED: SODIUM CHLORIDE 0.9% 1000ML 2,000 ML ONE (08:12)
[2023-05-01] MEDS: SODIUM BICARBONATE 650 MG TAB PO SCH (09:00)
[2023-05-01] MEDS ORDERED: ACETAMINOPHEN 325 MG TAB PO PRN (09:00)
[2023-05-01] MEDS ORDERED: DEXTROSE 50% SYRINGE 50 ML IV PRN (09:00)
[2023-05-01] MEDS: LISINOPRIL 20 MG TAB PO SCH (09:00)
[2023-05-01] MEDS: CARVEDILOL 12.5 MG TAB PO SCH ×2 (09:00→17:00)
[2023-05-01] MEDS: ASPIRIN 81 MG CHEW TAB PO SCH (09:00)
[2023-05-01] MEDS ORDERED: HYDRALAZINE HCL 20 MG/ML VIAL IV PRN (09:00)
[2023-05-01] MEDS: GABAPENTIN 300 MG CAP PO SCH ×2 (09:00→17:00)
[2023-05-01] MEDS: INSULIN LISPRO 100 UNIT/1 ML 3ML VIAL SQ SCH ×3 (11:30→21:00)
[2023-05-01] MEDS ORDERED: BUMETANIDE 1 MG TAB PO ONE (13:30)
[2023-05-01] MEDS ORDERED: BUMETANIDE INJ 0.25MG/ML 4ML VIAL IV ONE (13:30)
[2023-05-01] MEDS: METOCLOPRAMIDE HCL 10 MG/2ML VIAL IV PRN (17:02)
[2023-05-01] MEDS: ALBUTEROL/IPRATROPIUM 3 ML NEB NEB PRN (19:40)
[2023-05-01] MEDS: MELATONIN 3 MG TAB PO SCH (21:00)
[2023-05-01] MEDS: ATORVASTATIN 40 MG TAB PO SCH (21:43)
[2023-05-01] MEDS: QUETIAPINE FUMARATE 25 MG TAB PO SCH (21:44)
[2023-05-01] MEDS ORDERED: PIPERACILLIN/TAZOBACTAM SOD 2.25 GM VIAL ONE (22:01)
[2023-05-02] VITALS (12 sets, daily range): BP systolic 133–152; BP diastolic 54–71; PULSE 58–67; RESP 16–19; TEMP 97.6–98.4; O2SAT 97–100
[2023-05-02] MEDS ORDERED: PIPERACILLIN/TAZOBACTAM SOD 2.25 GM VIAL ONE (05:31)
[2023-05-02 05:34] LABS: BASOPHILS # (AUTO) 0.1 (0.0-0.1); BASOPHILS % 1.4 % (0.0-1.0); EOSINOPHILS # (AUTO) 0.2 (0.0-0.4); EOSINOPHILS % 4.6 % (0.0-6.0); HEMATOCRIT 32.7 % (34.2-44.1); HEMOGLOBIN 10.7 g/dL (12.0-16.0); LYMPHOCYTES # (AUTO) 1.1 (1.0-3.2); LYMPHOCYTES % 26.7 % (18.0-39.1); MEAN CORPUSCULAR HEMOGLOBIN 31.8 pg (28-32); MEAN CORPUSCULAR HGB CONC 32.7 g/dL (31-35); MEAN CORPUSCULAR VOLUME 97.3 fL (81-99); MONOCYTES # (AUTO) 0.3 (0.2-0.8); NEUTROPHILS # (AUTO) 2.5 (2.1-6.9); NEUTROPHILS % 60.8 % (38.7-80.0); PLATELET COUNT 81 x10e3/uL (140-360); RED BLOOD COUNT 3.36 x10e6/uL (3.6-5.1); RED CELL DISTRIBUTION WIDTH 14.8 % (11.7-14.4); WHITE BLOOD COUNT 4.15 x10e3/uL (4.8-10.8)
[2023-05-02] MEDS: Morphine 4mg INJECTION 4 MG/ML INJ IV PRN ×4 (05:35→20:39)
[2023-05-02 06:20] LABS: ANION GAP 15.7 mmol/L (8-16); CALCIUM 8.6 mg/dL (8.4-10.2); CREATININE, SERUM 4.66 mg/dL (0.57-1.11); POTASSIUM 3.7 mmol/L (3.5-5.1)
[2023-05-02 06:42] LABS: ALBUMIN 3.2 g/dL (3.5-5.0); ALBUMIN/GLOBULIN RATIO 0.8 (0.8-2.0)
[2023-05-02] MEDS: ALBUTEROL/IPRATROPIUM 3 ML NEB NEB PRN (07:29)
[2023-05-02] MEDS: ASPIRIN 81 MG CHEW TAB PO SCH (08:43)
[2023-05-02] MEDS: GABAPENTIN 300 MG CAP PO SCH ×2 (08:43→16:26)
[2023-05-02] MEDS: CARVEDILOL 12.5 MG TAB PO SCH ×2 (08:44→16:27)
[2023-05-02] MEDS: LISINOPRIL 20 MG TAB PO SCH (08:44)
[2023-05-02] MEDS: INSULIN LISPRO 100 UNIT/1 ML 3ML VIAL SQ SCH ×4 (08:45→21:07)
[2023-05-02] MEDS: SODIUM BICARBONATE 650 MG TAB PO SCH (08:49)
[2023-05-02] MEDS: DOCUSATE SODIUM 100 MG CAP PO SCH ×2 (08:49→16:26)
[2023-05-02] MEDS ORDERED: SODIUM CHLORIDE 0.9% 1000ML 2,000 ML IV PRN (09:15)
[2023-05-02] MEDS: METOCLOPRAMIDE HCL 10 MG/2ML VIAL IV PRN (09:34)
[2023-05-02] MEDS: ONDANSETRON HCL INJ 2MG/ML 2ML 2 MG/ML VIAL IV PRN ×2 (15:21→20:38)
[2023-05-02] MEDS: FUROSEMIDE 40 MG TAB PO SCH (16:26)
[2023-05-02] MEDS: QUETIAPINE FUMARATE 25 MG TAB PO SCH (20:37)
[2023-05-02] MEDS: ATORVASTATIN 40 MG TAB PO SCH (20:37)
[2023-05-02] MEDS: MELATONIN 3 MG TAB PO SCH (20:37)
[2023-05-03] VITALS (10 sets, daily range): BP systolic 130–166; BP diastolic 51–89; PULSE 59–80; RESP 18–20; TEMP 97.9–98.4; O2SAT 95–100
[2023-05-03] MEDS: FUROSEMIDE 40 MG TAB PO SCH ×2 (05:11→17:19)
[2023-05-03 07:15] LABS: BASOPHILS % 1.3 % (0.0-1.0); EOSINOPHILS # (AUTO) 0.1 (0.0-0.4); EOSINOPHILS % 4.3 % (0.0-6.0); HEMATOCRIT 29.5 % (34.2-44.1); HEMOGLOBIN 9.4 g/dL (12.0-16.0); LYMPHOCYTES % 33.8 % (18.0-39.1); MEAN CORPUSCULAR HEMOGLOBIN 32.3 pg (28-32); MEAN CORPUSCULAR HGB CONC 31.9 g/dL (31-35); MEAN CORPUSCULAR VOLUME 101.4 fL (81-99); MONOCYTES # (AUTO) 0.3 (0.2-0.8); MONOCYTES % 8.9 % (4.4-11.3); NEUTROPHILS # (AUTO) 1.6 (2.1-6.9); NEUTROPHILS % 51.4 % (38.7-80.0); PLATELET COUNT 58 x10e3/uL (140-360); RED BLOOD COUNT 2.91 x10e6/uL (3.6-5.1); RED CELL DISTRIBUTION WIDTH 15.6 % (11.7-14.4); WHITE BLOOD COUNT 3.05 x10e3/uL (4.8-10.8)
[2023-05-03] MEDS: INSULIN LISPRO 100 UNIT/1 ML 3ML VIAL SQ SCH ×4 (07:30→21:05)
[2023-05-03 07:38] LABS: ALBUMIN 2.7 g/dL (3.5-5.0); ALBUMIN/GLOBULIN RATIO 0.8 (0.8-2.0); ANION GAP 10.7 mmol/L (8-16); CALCIUM 8.3 mg/dL (8.4-10.2); CREATININE, SERUM 3.33 mg/dL (0.57-1.11); POTASSIUM 3.7 mmol/L (3.5-5.1)
[2023-05-03] MEDS: ASPIRIN 81 MG CHEW TAB PO SCH (08:24)
[2023-05-03] MEDS: DOCUSATE SODIUM 100 MG CAP PO SCH ×2 (08:25→17:00)
[2023-05-03] MEDS: CARVEDILOL 12.5 MG TAB PO SCH ×2 (08:25→17:20)
[2023-05-03] MEDS: LISINOPRIL 20 MG TAB PO SCH (08:25)
[2023-05-03] MEDS: GABAPENTIN 300 MG CAP PO SCH ×2 (08:25→17:19)
[2023-05-03] MEDS: SODIUM BICARBONATE 650 MG TAB PO SCH (09:41)
[2023-05-03] MEDS: Morphine 4mg INJECTION 4 MG/ML INJ IV PRN ×3 (10:20→20:01)
[2023-05-03] MEDS ORDERED: EPOETIN ALFA-EPBX 10,000 UNIT/ML VIAL SC ONE (12:00)
[2023-05-03] MEDS: ONDANSETRON HCL INJ 2MG/ML 2ML 2 MG/ML VIAL IV PRN (20:01)
[2023-05-03] MEDS: QUETIAPINE FUMARATE 25 MG TAB PO SCH (20:05)
[2023-05-03] MEDS: MELATONIN 3 MG TAB PO SCH ×2 (20:05→21:00)
[2023-05-03] MEDS: ATORVASTATIN 40 MG TAB PO SCH (20:05)
[2023-05-04] VITALS (9 sets, daily range): BP systolic 112–152; BP diastolic 48–60; PULSE 60–88; RESP 18–20; TEMP 97.6–98.6; O2SAT 93–100
[2023-05-04] MEDS: FUROSEMIDE 40 MG TAB PO SCH ×2 (05:17→15:52)
[2023-05-04] MEDS: ONDANSETRON HCL INJ 2MG/ML 2ML 2 MG/ML VIAL IV PRN ×4 (05:40→20:53)
[2023-05-04] MEDS: Morphine 4mg INJECTION 4 MG/ML INJ IV PRN ×4 (05:40→20:53)
[2023-05-04 07:21] LABS: BASOPHILS # (AUTO) 0.1 (0.0-0.1); BASOPHILS % 1.9 % (0.0-1.0); EOSINOPHILS # (AUTO) 0.2 (0.0-0.4); EOSINOPHILS % 5.6 % (0.0-6.0); HEMOGLOBIN 9.3 g/dL (12.0-16.0); LYMPHOCYTES # (AUTO) 1.2 (1.0-3.2); LYMPHOCYTES % 37.7 % (18.0-39.1); MEAN CORPUSCULAR HEMOGLOBIN 34.3 pg (28-32); MEAN CORPUSCULAR HGB CONC 33.2 g/dL (31-35); MEAN CORPUSCULAR VOLUME 103.3 fL (81-99); MONOCYTES # (AUTO) 0.3 (0.2-0.8); MONOCYTES % 9.3 % (4.4-11.3); NEUTROPHILS # (AUTO) 1.5 (2.1-6.9); NEUTROPHILS % 45.2 % (38.7-80.0); PLATELET COUNT 59 x10e3/uL (140-360); RED BLOOD COUNT 2.71 x10e6/uL (3.6-5.1); RED CELL DISTRIBUTION WIDTH 15.9 % (11.7-14.4); WHITE BLOOD COUNT 3.21 x10e3/uL (4.8-10.8)
[2023-05-04] MEDS: INSULIN LISPRO 100 UNIT/1 ML 3ML VIAL SQ SCH ×3 (07:30→20:58)
[2023-05-04 07:52] LABS: ALBUMIN 2.6 g/dL (3.5-5.0); ALBUMIN/GLOBULIN RATIO 0.8 (0.8-2.0); ANION GAP 9.7 mmol/L (8-16); CALCIUM 8.1 mg/dL (8.4-10.2); CREATININE, SERUM 3.21 mg/dL (0.57-1.11); POTASSIUM 3.7 mmol/L (3.5-5.1)
[2023-05-04] MEDS: GABAPENTIN 300 MG CAP PO SCH ×2 (08:50→15:53)
[2023-05-04] MEDS: ASPIRIN 81 MG CHEW TAB PO SCH (08:50)
[2023-05-04] MEDS: LISINOPRIL 20 MG TAB PO SCH (08:50)
[2023-05-04] MEDS: DOCUSATE SODIUM 100 MG CAP PO SCH ×2 (08:50→15:53)
[2023-05-04] MEDS: CARVEDILOL 12.5 MG TAB PO SCH ×2 (08:50→15:52)
[2023-05-04] MEDS: SODIUM BICARBONATE 650 MG TAB PO SCH (09:00)
[2023-05-04] MEDS: SACUBITRIL/VALSARTAN 24MG/26MG 1 EA TAB PO SCH (15:52)
[2023-05-04] MEDS: QUETIAPINE FUMARATE 25 MG TAB PO SCH (20:54)
[2023-05-04] MEDS: ATORVASTATIN 40 MG TAB PO SCH (20:54)
[2023-05-04] MEDS: MELATONIN 3 MG TAB PO SCH (20:59)
[2023-05-05] VITALS (8 sets, daily range): BP systolic 110–155; BP diastolic 44–57; PULSE 60–72; RESP 17–18; TEMP 97.9–98.6; O2SAT 94–100
[2023-05-05] MEDS: FUROSEMIDE 40 MG TAB PO SCH ×2 (05:05→16:17)
[2023-05-05] MEDS: Morphine 4mg INJECTION 4 MG/ML INJ IV PRN ×3 (05:06→16:18)
[2023-05-05] MEDS: ONDANSETRON HCL INJ 2MG/ML 2ML 2 MG/ML VIAL IV PRN ×3 (05:06→16:17)
[2023-05-05 05:53] LABS: BASOPHILS # (AUTO) 0.1 (0.0-0.1); BASOPHILS % 2.1 % (0.0-1.0); EOSINOPHILS # (AUTO) 0.2 (0.0-0.4); HEMATOCRIT 29.6 % (34.2-44.1); HEMOGLOBIN 9.7 g/dL (12.0-16.0); LYMPHOCYTES # (AUTO) 1.3 (1.0-3.2); LYMPHOCYTES % 39.1 % (18.0-39.1); MEAN CORPUSCULAR HEMOGLOBIN 33.7 pg (28-32); MEAN CORPUSCULAR HGB CONC 32.8 g/dL (31-35); MEAN CORPUSCULAR VOLUME 102.8 fL (81-99); MONOCYTES # (AUTO) 0.3 (0.2-0.8); MONOCYTES % 9.7 % (4.4-11.3); NEUTROPHILS # (AUTO) 1.5 (2.1-6.9); NEUTROPHILS % 44.1 % (38.7-80.0); PLATELET COUNT 56 x10e3/uL (140-360); RED BLOOD COUNT 2.88 x10e6/uL (3.6-5.1); RED CELL DISTRIBUTION WIDTH 15.5 % (11.7-14.4)
[2023-05-05 06:39] LABS: ALBUMIN 2.6 g/dL (3.5-5.0); ALBUMIN/GLOBULIN RATIO 0.7 (0.8-2.0); ANION GAP 11.9 mmol/L (8-16); CALCIUM 8.2 mg/dL (8.4-10.2); CREATININE, SERUM 4.51 mg/dL (0.57-1.11); POTASSIUM 3.9 mmol/L (3.5-5.1)
[2023-05-05] MEDS: INSULIN LISPRO 100 UNIT/1 ML 3ML VIAL SQ SCH ×3 (07:30→17:41)
[2023-05-05] MEDS: DOCUSATE SODIUM 100 MG CAP PO SCH ×2 (09:04→16:17)
[2023-05-05] MEDS: SACUBITRIL/VALSARTAN 24MG/26MG 1 EA TAB PO SCH ×2 (09:04→16:16)
[2023-05-05] MEDS: ASPIRIN 81 MG CHEW TAB PO SCH (09:05)
[2023-05-05] MEDS: CARVEDILOL 12.5 MG TAB PO SCH ×2 (09:05→16:16)
[2023-05-05] MEDS: GABAPENTIN 300 MG CAP PO SCH ×2 (09:05→16:16)
[2023-05-05] MEDS: SODIUM BICARBONATE 650 MG TAB PO SCH (09:08)
[2023-05-05] MEDS ORDERED: FUROSEMIDE40 MG PO (09:27)
[2023-05-05] MEDS ORDERED: ENTRESTO 24 MG1 EACH PO (09:27)
[2023-05-05] MEDS ORDERED: COREG12.5 MG PO (09:27)
[2023-05-05] MEDS ORDERED: EPOETIN ALFA-EPBX 10,000 UNIT/ML VIAL SC ONE ×2 (12:00→16:30)
[2023-05-05] MEDS ORDERED: METOCLOPRAMIDE HCL 10 MG TAB PO PRN (19:00)
[2023-05-05] MEDS ORDERED: ONDANSETRON ODT4 MG PO (19:59)
== END 2023-05-05 20:28 | disposition home or self-care (01) | DRG 291 ==
LOC: ER 22:27 → ERHOLD 05-01 00:14 → MED/SURG3 05-01 04:24
PROVIDERS: ADMIT Internal Medicine; ATTEND Internal Medicine
PROC: 5A1D70Z Performance of Urinary Filtration, Intermittent, Less than 6 Hours Per Day (ICD-10-PCS; principal; 2023-05-01)
PROC: 0W993ZZ Drainage of Right Pleural Cavity, Percutaneous Approach (ICD-10-PCS; 2023-05-01)
DX: I13.2 Hypertensive heart and chronic kidney disease with heart failure and with stage 5 chronic kidney disease, or end stage renal disease (principal); I50.43 Acute on chronic combined systolic (congestive) and diastolic (congestive) heart failure; N18.6 End stage renal disease; E11.52 Type 2 diabetes mellitus with diabetic peripheral angiopathy with gangrene; I96 Gangrene, not elsewhere classified; D61.818 Other pancytopenia; N25.81 Secondary hyperparathyroidism of renal origin; J91.8 Pleural effusion in other conditions classified elsewhere; E11.22 Type 2 diabetes mellitus with diabetic chronic kidney disease; I25.2 Old myocardial infarction; I25.10 Atherosclerotic heart disease of native coronary artery without angina pectoris; D63.1 Anemia in chronic kidney disease; I44.0 Atrioventricular block, first degree; D86.9 Sarcoidosis, unspecified; G89.29 Other chronic pain; K74.60 Unspecified cirrhosis of liver; E11.21 Type 2 diabetes mellitus with diabetic nephropathy; E11.319 Type 2 diabetes mellitus with unspecified diabetic retinopathy without macular edema; E11.51 Type 2 diabetes mellitus with diabetic peripheral angiopathy without gangrene; D50.9 Iron deficiency anemia, unspecified; R16.1 Splenomegaly, not elsewhere classified; E11.42 Type 2 diabetes mellitus with diabetic polyneuropathy; R59.0 Localized enlarged lymph nodes; R91.8 Other nonspecific abnormal finding of lung field; E87.70 Fluid overload, unspecified; D69.6 Thrombocytopenia, unspecified; Z99.2 Dependence on renal dialysis; Z20.822 Contact with and (suspected) exposure to COVID-19; Z86.73 Personal history of transient ischemic attack (TIA), and cerebral infarction without residual deficits; Z90.49 Acquired absence of other specified parts of digestive tract; Z95.1 Presence of aortocoronary bypass graft; Z79.4 Long term (current) use of insulin; Z79.82 Long term (current) use of aspirin; Z95.810 Presence of automatic (implantable) cardiac defibrillator; Z87.891 Personal history of nicotine dependence
CPT/HCPCS: 32555; 36415; 71045; 71250; 80053; 82948; 83880; 85025; 85610; 85730; 86704; 86706; 87340; 93005; 93306; 94640; 94799; 99284; J2270; J2405; J2543; J2765; J7030; J7050; U0002